=== PATIENT | male | born 1950 | race Two or more races ===

== ENCOUNTER 2023-08-31 14:22 | Outpatient (OUT) | payer MEDICARE, SELFPAY ==
[2023-08-31 15:18] LABS: Bilirubin Urine NEGATIVE (NEGATIVE); Blood Urine NEGATIVE (NEGATIVE); Clarity Urine CLEAR (CLEAR); Color Urine YELLOW (YELLOW); Glucose Urine UA NEGATIVE (NEGATIVE); Hematocrit 40.4 % (42.0-54.0); Hemoglobin 13.1 g/dL (14.0-18.0); Ketones Urine NEGATIVE (NEGATIVE); Leukocyte Esterase Urine NEGATIVE (NEGATIVE); Mean Corpuscular HGB Conc 32.4 g/dL (29.9-35.2); Mean Corpuscular Hemoglobin 26.5 pg (25.9-34.0); Mean Corpuscular Volume 81.6 fL (80.0-94.0); Mean Platelet Volume 10.5 fL (9.5-13.5); Nitrite Urine NEGATIVE (NEGATIVE); Platelet Count 157 10^3/uL (150-450); Protein Urine 100 mg/dL (NEG/TRACE); Red Blood Count 4.95 10^6/uL (4.70-6.10); Red Cell Distribution Width 15.3 % (11.0-15.0); Specific Gravity Urine 1.025 (1.005-1.025)
[2023-08-31 15:23] LABS: Creatinine Urine Random 155.87 mg/dL (20.00-300.00); Protein Creatinine Ratio Urine 0.59; Total Protein Urine Random 91.8 mg/dL (<=11.9)
[2023-08-31 15:36] LABS: Bacteria Urine NONE SEEN #/HPF (NONE SEEN); Cast Seen? NONE SEEN #/LPF (NONE SEEN); Crystals Seen? None Seen #/HPF (None Seen); Mucus Urine NONE SEEN (NONE SEEN); RBC Urine 0-2 #/HPF (0-2); Squamous Epithelial Cell Urine NONE SEEN #/LPF (NONE/RARE); WBC Urine NONE SEEN #/HPF (NONE SEEN)
[2023-08-31 16:43] LABS: Percent Iron Saturation 17.9 %
[2023-08-31 16:44] LABS: Albumin Level 3.5 g/dL (3.4-5.0); Anion Gap 12.3; BUN Creatinine Ratio 14.9; Calcium 8.7 mg/dL (8.5-10.1); Carbon Dioxide 25.8 mmol/L (21.0-32.0); Chloride 105 mmol/L (98-107); Estimated GFR (African America 45 (>=60); Estimated GFR (Non-African Ame 37 (>=60); Glucose 124 mg/dL (74-106); Phosphorus 3.5 mg/dL (2.6-4.7); Potassium 4.1 mmol/L (3.5-5.1); Sodium 139 mmol/L (136-145)
== END 2023-08-31 14:23 | disposition home or self-care (01) ==
PROVIDERS: PCP Family Medicine; Visit Provider Internal Medicine
DX: E11.22 Type 2 diabetes mellitus with diabetic chronic kidney disease (principal); N18.30 Chronic kidney disease, stage 3 unspecified; N28.1 Cyst of kidney, acquired; I12.9 Hypertensive chronic kidney disease with stage 1 through stage 4 chronic kidney disease, or unspecified chronic kidney disease; N20.0 Calculus of kidney; R80.9 Proteinuria, unspecified; D63.1 Anemia in chronic kidney disease
CPT/HCPCS: 36415; 80069; 81001; 82570; 82728; 83540; 83550; 83735; 84156; 85027

== ENCOUNTER 2023-09-21 15:40 | Outpatient (OUT) | payer MEDICARE, SELFPAY ==
[2023-09-21 16:31] LABS: Albumin Level 3.8 g/dL (3.4-5.0); Anion Gap 12.2; BUN Creatinine Ratio 15.5; Carbon Dioxide 29.1 mmol/L (21.0-32.0); Chloride 102 mmol/L (98-107); Estimated GFR (African America 54 (>=60); Estimated GFR (Non-African Ame 44 (>=60); Glucose 108 mg/dL (74-106); Phosphorus 3.9 mg/dL (2.6-4.7); Potassium 4.3 mmol/L (3.5-5.1); Sodium 139 mmol/L (136-145)
== END 2023-09-21 15:41 | disposition home or self-care (01) ==
LOC: LAB 15:43
PROVIDERS: PCP Family Medicine; Visit Provider Internal Medicine
DX: N20.0 Calculus of kidney (principal); N18.30 Chronic kidney disease, stage 3 unspecified; N28.1 Cyst of kidney, acquired; E11.22 Type 2 diabetes mellitus with diabetic chronic kidney disease; I12.9 Hypertensive chronic kidney disease with stage 1 through stage 4 chronic kidney disease, or unspecified chronic kidney disease; R80.9 Proteinuria, unspecified; D63.1 Anemia in chronic kidney disease
CPT/HCPCS: 36415; 80069

== ENCOUNTER 2023-10-07 16:02 | Outpatient (OUT) | payer MEDICARE, SELFPAY ==
[2023-10-07 16:27] LABS: Anion Gap 13.4; BUN Creatinine Ratio 19.8; Calcium 9.2 mg/dL (8.5-10.1); Carbon Dioxide 27.1 mmol/L (21.0-32.0); Chloride 105 mmol/L (98-107); Estimated GFR (African America 49 (>=60); Estimated GFR (Non-African Ame 41 (>=60); Glucose 150 mg/dL (74-106); Potassium 4.5 mmol/L (3.5-5.1); Sodium 141 mmol/L (136-145)
== END 2023-10-07 16:03 | disposition home or self-care (01) ==
LOC: LAB 16:02
PROVIDERS: PCP Family Medicine
DX: I13.11 Hypertensive heart and chronic kidney disease without heart failure, with stage 5 chronic kidney disease, or end stage renal disease (principal); N18.6 End stage renal disease; Z99.2 Dependence on renal dialysis; I50.43 Acute on chronic combined systolic (congestive) and diastolic (congestive) heart failure; E11.21 Type 2 diabetes mellitus with diabetic nephropathy
CPT/HCPCS: 36415; 80048

== ENCOUNTER 2023-12-14 13:21 | Outpatient (OUT) | payer MEDICARE, SELFPAY ==
--- OUTSIDE RECORDS SUMMARY | 2023-12-14 13:29 | XMS_ITS | CCD ---
Author Name Unknown Address [address] [place] [address] Organization [facility] Care Team Providers Care Clay Miner Name Role Phone NO REFERRING Unavailable Unavailable [employer] Unavailable Unavailable [facility]NO Unavailable Unavailable Phyllis Reyes Unavailable Mary Bryson Unavailable Jun Perez Unavailable Unavailable Unavailable Edie Morse Unavailable Jun Perez Unavailable Mayo, Tj Unavailable MAYO, TJ Attending Unavailable MAYO, TJ Consulting Unavailable MAYO TJ Admitting Unavailable Dr. Malika Patel Primary Care Robb Burgess, Dr. Jerez Attending Unavailable Anurag, Dr. Jerez Referring Unavailable Kun, Dr. Jun Patel Primary Care Unav ailable Anurag, Dr. Jerez Attending Unavailable Anurag, Dr. Jerez Referring Unavailable Kun, Dr. Jun Patel Primary Care UnaOdilia Bray Attending Unavailable Odilia Mackenzie Referring Unavailable Kun, Dr. Jun Patel Primary Care UnaMD BRITNEY Rose Attending Unavailable MD BRITNEY YU Referring Unavailable Odilia Mackenzie Attending Unavailable Kun, Dr. Jun Patel Primary Care Unaruthy ailronaldo Burgess, Dr. Jerez Attending Unavailable Kun, Dr. Jun Patel Primary Care Jacobo ailronaldo Burgess, Dr. Jerez Attending Unavailable Knu, Dr. Jun Patel Primary Care UnaRitchie Wilcox Admitting Unavail able CAROLEE GONZALEZ Primary Care Unavailable Ritchie Desai Attending Unavail able CAROLEE GONZALEZ Primary Care Unavailable Ritchie Desai Attending Unavail able Ritchie Desai Admitting Unavail able Rodney Victor Unavailable Mapus, Tondra Unavailable MD Jun Perez Primary Care Provider JESSA Parham Attending Provider MD Tj Solis Attending Provider Kun JARA, Jun Patel Primary Care Provider BRITNEY YU Attending Unavailable JUN PEREZ Primary Care Unavaila BRITNEY Joyner Attending Unavailable GIGI BRITNEY Referring Unavailable JUN PEREZ Primary Care Unavailstephen Perez MD, Jun Patel Primary Care Provider Unavailable MD Jun Perez Primary Care Provider JESSA Parham Attending Provider [phone] MD Tj Solis Attending Provider [phone] MD Rodney Victor Attending Provider MD Britney Yu Attending Provider Jun Perez Primary Care Unavailable Rodney Victor Admitting Unavailable Rodney Victor Attending Unavailable Mayo, Tj Attending Unavailable Jun Perez Primary Care Unavailable Mayo, Tj Admitting Unavailable Jun Perez Primary Care Unavailable Yu, Britney Admitting Unavailable Gigi Britney Attending Unavailable Yu Britney Admitting Unavailable Yu Britney Attending Unavailable Jun Perez Primary Care Unavailable Mayo, Tj Admitting Unavailable Mayo Tj Attending Unavailable Jun Perez Primary Care Unavailable Jun Perez Primary Care Unavailable Mapus, Tondra K Admitting Unavailable Mapus, Tondra K Attending Unavailable Jose Yu Unavailable Allergies Allergy Classification Reported Allergen(s) Allergy Type Date of Onset Reaction(s) Facility (20 sources) Contrast media Propensity to adverse reactions Unknown [facility] Other (8 sources) Contrast media Allergy to substance (finding) Shortness of breath -[facility] DO Work Phone: (6 sources) Angiotensin Converting Enzyme (Elisa) Inhibitors; Translations: [ELISA Inhibitors] Allergy to drug (finding) -[facility] DO Work Phone: (1 source) Contrast media; Translations: [Contrast Dye] Propensity to adverse reactions to drug (disorder) [facility] (5 sources) Gadolinium-Cont aining Contrast Medi; Translations: [Gadolinium-Con taining Contrast Medi] Allergy to substance 1 Anaphylaxis [facility] (9 sources) Iodinated Contrast Media; Translations: [IODINATED CONTRAST MEDIA] Allergy to substance 1 Shortness of breath [facility] Medications Current Medications Medication Drug Class(es) Dates Sig (Normalized) Sig (Original) 0.25 MG, 0.5 MG Dose 3 ML semaglutide 0.68 MG/ML Pen Injector [Ozempic] (3 sources) Start: 09-17-2023 inject 0.5 mg by subcutaneous injection every week Ozempic (0.25 or 0.5 MG/DOSE) 2 MG/3ML 0.5mg Subcutaneous once weekly Sep, Active amoxicillin 875 mg / clavulanate 125 mg oral tablet (7 sources) Penicillin-class Antibacterial Start: 11-19-2023 take 1 tablet by mouth every twelve hours Amoxicillin-Pot Clavulanate 875-125 MG 1 tablet Orally every 12 hrs for 10 day(s) Nov, Active Start: 12-02-2022 take 1 tablet by tanvi th every twelve hours Amoxicillin-Pot Clavulanate 875-125 MG 1 tablet Orally every 12 hrs for 10 day(s) Nov, Active aspirin 81 mg delayed release oral tablet (20 sources) Platelet Aggregation Inhibitor, Nonsteroidal Anti-inflammatory Drug take 1 tablet by mouth every twenty-four hours Aspirin 81 MG 1 tablet Orally Once a day Active take 1 tablet by tanvi th every twenty-four hours Aspirin 81 MG 1 tablet Orally Once a day Active atorvastatin 10 mg oral tablet (20 sources) HMG-CoA Reductase Inhibitor Start: 10-21-2023 take 5 mg by mouth at bedtime Atorvastatin Active 5 MG PO Bedtime October 21, 2023 12:00am take 0.5 tablet by mouth once da kimberlee Atorvastatin Calcium 10 MG 1/2 tab Orally Once a day Active take 1 tablet by mouth at bedtim e Atorvastatin Calcium 10 MG Oral Tablet TAKE 1 TABLET AT BEDTIME. Quantity: 90 Refills: 3 Ordered: 26-Dec-2022 Lashell Vazquez MD Active azithromycin 250 mg oral tablet (3 sources) Macrolide Antimicrobial Start: 02-17-2023 Azithromycin 250 MG as directed Orally 2 tabs po today, then 1 tab daily x 4 more days for 5 Feb, Active Start: 09-08-2022 Azithromycin 2 50 MG 2 tablet on the first day, then 1 tablet daily for 4 days Orally Once a day for 5 day(s) Aug, Active carvedilol 12.5 mg oral tablet (20 sources) alpha-Adrenergic Michelle, beta-Adrenergic Michelle Start: 10-21-2023 take 12.5 mg by mouth twice daily Carvedilol Active 12.5 MG PO Twice daily October 21, 2023 12:00am Start: 06-08-2023 take 1 tablet by tanvi th twice daily Carvedilol 6.25 MG Oral Tablet Take 1 tablet twice daily Quantity: 180 Refills: 3 Ordered: 08-Jun-2023 Britney Yu MD Start : 08-Jun-2023 Active 18.75 dose Start: 06-08-2023 take 1 tablet by tanvi th twice daily Carvedilol 12.5 MG Oral Tablet TAKE 1 TABLET TWICE DAILY. Quantity: 180 Refills: 3 Ordered: 08-Jun-2023 Britney Yu MD Start : 08-Jun-2023 Active take with 6.25mg bid take 1 tablet by tanvi th every eight hours Carvedilol 12.5 MG 1 tablet with food Orally THREE TIMES A DAY Active take 1 tablet by tanvi th every twelve hours Carvedilol 12.5 MG 1 tablet with food Orally Twice a day Active take 1 tablet by tanvi th every twelve hours Carvedilol 25 MG 1 tablet with food Orally Twice a day Active cholecalciferol 0.05 mg oral capsule (20 sources) Vitamin D Start: 10-21-2023 take 1 capsule by mouth once daily Cholecalciferol (Vitamin D3) (Vitamin D3) 50 mcg (2,000 unit) Capsule Active 4000 UNIT PO Daily October 21, 2023 12:00am take 1 capsule by mo uth every twelve hours Vitamin D3 50 MCG (1999 UT) 1 capsule Or ally BID Active take 1 tablet by mouth once lex y cholecalciferol (Vitamin D3) 50 MCG (2000 UT) tablet Take 1 tablet (50 mcg) by mouth once daily. 0 Active empagliflozin 25 mg oral tablet (13 sources) Sodium-Glucose Cotransporter 2 Inhibitor Start: 10-21-2023 take 1 tablet by mouth once daily Empagliflozin (Jardiance) 25 mg tablet Active 25 MG PO Daily October 21, 2023 12:00am Start: 09-17-2023 take 10 mg by mouth once daily Jardiance 25 MG 1/2 tablet Orally Once a day for 90 days stop jardiance 10mg dose Sep, Active Start: 09-07-2023 take 1 tablet by tanvi th every twenty-four hours Jardiance 10 MG 1 tablet Orally Once a day for 90 days Aug, Active take 0.5 tablet by m out once daily empagliflozin (Jardiance) 25 mg Take 0.5 tablets (12.5 mg) by mouth once daily. 0 Active erythromycin 0.005 mg/mg ophthalmic ointment (2 sources) Macrolide, Macrolide Antimicrobial Start: 05-25-2022 Erythromycin 5 MG/GM 1 application lower lid right eye three times a day for 7 days May, Active ferrous sulfate 325 mg oral tablet (9 sources) Start: 10-21-2023 Ferrous Sulfat e (Iron) 325 mg (65 mg iron) Tablet Active 325 MG PO Q48H October 21, 2023 12:00am take 1 tablet by mouth every oth er day Iron (Ferrous Sulfate) 325 (65 Fe) MG 1 tablet Orally Every other day Active take 1 tablet by mouth every oth er day ferrous sulfate 325 (65 Fe) MG EC tablet Take 65 mg by mouth every other day. Do not crush, chew, or split. 0 Active FreeStyle Carmelita 3 Sensor - (3 sources) Start: 09-17-2023 FreeStyle Libr e 3 Sensor - as directed SQ changed every 14 days for 14 days Sep, Active gabapentin 100 mg oral capsule (20 sources) Anti-epileptic Agent Start: 10-21-2023 take 100 mg by mouth three times daily Gabapentin Active 100 MG PO Three times daily October 21, 2023 12:00am take 1 capsule by mouth once sebastian ly Gabapentin 100 MG 1 capsule Orally 3x daily for 90 days Active take 1 capsule by mo [facility] three times daily gabapentin (Neurontin) 100 mg capsule Ta ke 1 capsule (100 mg) by mouth 3 times a day. 0 Active glipiZIDE 5 mg oral tablet (20 sources) Sulfonylurea take 1 tablet by tanvi twice daily 30 minutes before breakfast glipiZIDE 5 MG 1 tablet 30 minutes before breakfast Orally twice a day Active End: 09-28-2023 take 1 tablet by mouth once daily glipiZIDE XL (Glucotrol XL) 5 mg 24 hr tablet Take 1 tablet (5 mg) by mouth once daily. Do not crush, chew, or split. 0 09/28/2023 Discontinued (Therapy completed) take 1 tablet by tanvi once daily 30 minutes before breakfast glipiZIDE 5 MG 1 tablet 30 minutes before breakfast Orally Once a day Active Iron (4 sources) take 1 tablet by mouth every other day Iron (Ferrous Sulfate) 325 (65 Fe) MG 1 tablet Orally Every other day Active isosorbide mononitrate 20 mg oral tablet (3 sources) Nitrate Vasodilator take 1 tablet by mouth every twelve hours Isosorbide Mononitrate 20 MG 1 tablet Orally Twice a day Active lisinopril 2.5 mg oral tablet (10 sources) Angiotensin Converting Enzyme Inhibitor Start: take 1 tablet by mouth every twenty-four hours Lisinopril 2.5 MG 1 tablet Orally Once a day for 90 days Nov, Active Start: 04-16-2023 End: 09-28-2023 take 1 tablet by mouth every twenty-four hours Lisinopril 2.5 MG 1 tablet Orally Once a day for 90 days Apr, Active losartan potassium 25 mg oral tablet (6 sources) Angiotensin 2 Receptor Michelle Start: 09-01-2023 End: 09-28-2023 take 1 tablet by mouth every twenty-four hours Losartan Potassium 25 MG 1 tablet Orally Once a day for 90 days Aug, Active methylPREDNISolone 4 mg oral tablet (2 sources) Corticosteroid Start: 02-17-2023 methylPREDNISolone 4 MG as directed Orally for 6 days Feb, Active Multivitamin preparation (3 sources) Multivitamin Act fabien sacubitril 97 mg / valsartan 103 mg oral tablet (11 sources) Angiotensin 2 Receptor Michelle Start: 10-15-2023 End: 10-14-2024 take 0.5 tablet by mouth twice daily Sacubitril-Valsartan (Entresto) 97-103 mg tablet Active 0.5 TAB PO Twice daily October 21, 2023 12:00am Start: 09-28-2023 End: 10-15-2023 take 1 tablet by mouth twice daily sacubitriL-valsartan (Entresto) 24-26 mg tablet Indications: Hypertensive heart and CKD, ESRD on dialysis ([facility]) , CHF (congestive heart failure), NYHA class II, acute on chronic, combined ([facility]) , Primary hypertension Take 1 tablet by mouth 2 times a day. 56 tablet 0 09/29/2023 10/15/2023 Discontinued (Dose adjustment) Start: 06-08-2023 take 1 tablet by tanvi th twice daily Entresto 24-26 MG Oral Tablet TAKE 1 TABLET BY MOUTH TWICE A DAY Quantity: 180 Refills: 3 Ordered: 08-Jun-2023 Britney Yu MD Start : 08-Jun-2023 Active take 1 tablet by tanvi th every twelve hours Entresto 49-51 MG 1 tablet Orally Twice a day Not-Taking/PRN Saw Murphy 1000 MG (18 sources) take 1000 mg by mout h twice daily Saw Murphy 1000 MG as directed Orally BID Active Saw Murphy 450 MG (3 sources) take 450 mg by mouth three times daily Saw Murphy 450 MG as directed Orally three times a day Active Saw Murphy (3 sources) Start: 10-21-2023 take 450 mg by mouth three times daily at mealtime Saw Murphy Active 450 MG PO Three times daily October 21, 2023 12:00am give with food (meal/snack) SAW PALMETTO ORAL (2 sources) SAW PALMETTO ORA L Take by mouth once daily. 0 Active Vitamin C 1000 MG (4 sources) take 1 tablet by tanvi th once daily Vitamin C 1000 MG 1 tablet Orally Once a day Active Vitamin D3 50 MCG (1999 UT) (3 sources) take 1 tablet by tanvi th once daily Vitamin D3 50 MCG (2000 UT) 1 tablet Orally Once a day Active Completed/Discontinued Medications Medication Drug Class(es) Dates Sig (Normalized) Sig (Original) benzonatate 100 mg oral capsule (6 sources) Non-narcotic Antitussive Start: 10-31-2023 take 1 capsule by mouth three times daily as needed Tessalon Perles 100 MG 1 capsule as needed Orally Three times a day for 7 days Oct, Not-Taking/PRN Start: 02-17-2023 take 1 capsule by [facility] every eight hours Benzonatate 200 MG 1 capsule Orally Three times a day for 10 day(s) Feb, Active furosemide 20 mg oral tablet (20 sources) Loop Diuretic End: 09-28-2023 take 0.5 mg by mouth once daily furosemide (Lasix) 20 mg tablet Take 0.5 mg by mouth once daily. 0 09/28/2023 Discontinued (Therapy completed) Lasix 20 MG 1/2 tablet Orally Once a day PRN ONLY patient states he takes 30mg PRN Active hydrALAZINE hydrochloride 25 mg oral tablet (20 sources) Arteriolar Vasodilator Start: 09-28-2023 End: 09-27-2024 take 0.5 tablet by mouth three times daily hydrALAZINE (Apresoline) 25 mg tablet Indications: CHF (congestive heart failure), NYHA class II, acute on chronic, combined (CMS/HCC) , Primary hypertension Take 0.5 tablets (12.5 mg) by mouth 3 times a day. 45 tablet 09/28/2023 10/15/2023 Discontinued (Therapy completed) End: 09-28-2023 take 1.5 tablets by mouth three times daily hydrALAZINE HCl 25 MG 1.5 tabs Orally Three times a day Active hydrALAZINE HCl 25 MG 1 1/2 tablet with food Orally Three times a day Active take 1 tablet by tanvi th every eight hours hydrALAZINE HCl 10 mg 1 tablet Orally Three times a day Active predniSONE 20 mg oral tablet (5 sources) Start: 10-31-2023 take 1 tablet by mouth every twelve hours prednisone 20 MG 1 tablet Orally BID for 5 Oct, Not-Taking/PRN Start: 09-08-2022 take 1 tablet by tanvi th every twelve hours predniSONE 20 MG 1 tablet Orally 2 times a day for 5 day(s) Aug, Active Saw Murphy 1000 MG Oral Capsule (8 sources) Saw Murphy 100 0 MG Oral Capsule TAKE DIRECTED. Quantity: 0 Refills: 0 Ordered: 26-Dec-2022 DO Active triamcinolone acetonide 40 mg/ml injectable suspension (20 sources) Corticosteroid Start: 04-30-2022 Kenalog-40 15 Apr, 2022 20 mg Start: 04-30-2022 Kenalog-40 Apr, 40 mg Start: 07-29-2021 Kenalog -40 mg Jul, 40 mg Problems Active Problems Problem Classification Problem Date Documented Date Episodic/Chronic Administrative/social admission (1 source) Dietary counseling and surveillance Episodic Calculus of urinary tract (20 sources) Kidney stone; Translations: [Calculus of kidney] Onset: 3 Episodic Chronic kidney disease (20 sources) Chronic kidney disease stage 2; Translations: [Chronic kidney disease, stage 2 (mild)] Onset: 3 Chronic Chronic obstructive pulmonary disease and bronchiectasis (1 source) Bronchitis, not specified as acute or chronic Episodic Conduction disorders (5 sources) First degree atrioventricular block; Translations: [First degree atrioventricular block] Onset: 3 09-25-2023 Chronic Congestive heart failure; nonhypertensive (20 sources) Congestive heart failure stage C; Translations: [Congestive heart failure, unspecified] Onset: 3 Chronic Congestive heart failure; nonhypertensive (1 source) Congestive heart failure; nonhypertensive; Translations: [Acute on chronic combined systolic (congestive) and diastolic (congestive) heart failure] Onset: 3 Deficiency and other anemia (11 sources) Anemia of renal disease; Translations: [Anemia in chronic kidney disease] Chronic Deficiency and other anemia (1 source) Anemia in chronic kidney disease Chronic Deficiency and other anemia (8 sources) Iron deficiency anemia; Translations: [Iron deficiency anemia, unspecified] Episodic Deficiency and other anemia (1 source) Anemia, unspecified; Translations: [Anemia, unspecified] Onset: 3 Episodic Diabetes mellitus with complications (20 sources) Diabetic peripheral neuropathy; Translations: [Type 2 diabetes mellitus with diabetic polyneuropathy] Onset: 3 Chronic Diabetes mellitus without complication (15 sources) Type 2 diabetes mellitus without complication; Translations: [Diabetes mellitus without mention of complication, type II or unspecified type, not stated as uncontrolled] Onset: 3 09-25-2023 Chronic Diabetes mellitus without complication (1 source) Diabetes mellitus without complication; Translations: [Type 2 diabetes mellitus with diabetic chronic kidney disease] Onset: 3 Disorders of lipid metabolism (20 sources) Hyperlipidemia; Translations: [Other and unspecified hyperlipidemia] Onset: 3 Chronic Essential hypertension (20 sources) Essential hypertension; Translations: [Unspecified essential hypertension] Onset: 3 Chronic Genitourinary congenital anomalies (19 sources) Renal agenesis and dysgenesis; 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, unilateral] Onset: 3 Chronic Genitourinary symptoms and ill-defined conditions (4 sources) Proteinuria, unspecified; Translations: [PROTEINURIA UNSPECIFIED] Onset: 3 Episodic Hypertension with complications and secondary hypertension (20 sources) Chronic kidney disease due to hypertension; Translations: [Hypertensive chronic kidney disease with stage 1 through stage 4 chronic kidney disease, or unspecified chronic kidney disease] Onset: 3 Chronic Immunizations and screening for infectious disease (20 sources) Contact with and (suspected) exposure to other viral communicable diseases; Translations: [Contact with and (suspected) exposure to other viral communicable diseases] Episodic Osteoarthritis (20 sources) Osteoarthritis of right knee joint; Translations: [Unilateral primary osteoarthritis, right knee] Onset: 2 Resolved: 2 Chronic Other aftercare (5 sources) Treatment changed; Translations: [Long-term (current) use of other medications] Onset: 3 09-28-2023 Episodic Other aftercare (8 sources) Long-term current use of insulin; Translations: [paper inserter (current) use of insulin] Episodic Other aftercare (4 sources) Other underwriting service representative (current) drug therapy; Translations: [Other underwriting service representative (current) drug therapy] Onset: 3 Episodic Other bone disease and musculoskeletal deformities (1 source) Disorder of bone, unspecified; Translations: [Disorder of bone, unspecified] Onset: 3 Episodic Other diseases of kidney and ureters (2 sources) Cyst of kidney, acquired; Translations: [Cyst of kidney, acquired] Onset: 3 Episodic Other infections; including parasitic (5 sources) Personal history of other infectious and parasitic diseases; Translations: [Personal history of COVID-19] Onset: 3 09-25-2023 Episodic Other nervous system disorders (20 sources) Neuropathy of lower limb; Translations: [Unspecified mononeuropathy of left lower limb] Chronic Other nervous system disorders (20 sources) Chronic pain; Translations: [Other chronic pain] Chronic Other nervous system disorders (2 sources) Unspecified mononeuropathy of left lower limb Chronic Other nervous system disorders (1 source) Other chronic pain Chronic Other non-traumatic joint disorders (3 sources) Pain in right knee Onset: 2 Resolved: 2 Episodic Other nutritional; endocrine; and metabolic disorders (8 sources) Obesity; Translations: [Obesity, unspecified] Chronic Other nutritional; endocrine; and metabolic disorders (15 sources) Obese class II; Translations: [Body mass index (BMI) 38.0-38.9, adult] Chronic Other nutritional; endocrine; and metabolic disorders (1 source) Body mass index (BMI) 37.0-37.9, adult Chronic Other nutritional; endocrine; and metabolic disorders (3 sources) Morbid obesity; Translations: [Morbid (severe) obesity due to excess calories] Onset: 3 09-28-2023 Chronic Other nutritional; endocrine; and metabolic disorders (4 sources) Morbid (severe) obesity due to excess calories; Translations: [Morbid (severe) obesity due to excess calories (CMS/HCC)] Onset: 3 Chronic Other nutritional; endocrine; and metabolic disorders (3 sources) Overweight in adulthood with body mass index of 25 or more but less than 30; Translations: [Overweight] Episodic Other screening for suspected conditions (not mental disorders or infectious disease) (11 sources) Electrocardiogram abnormal; Translations: [Nonspecific abnormal electrocardiogram [ECG] [EKG]] Onset: 3 09-25-2023 Episodic Other skin disorders (1 source) Disorder of the skin and subcutaneous tissue, unspecified Episodic Other skin disorders (1 source) Change in skin lesion; Translations: [Anemia in chronic kidney disease] Onset: 3 Episodic Other upper respiratory infections (1 source) Acute maxillary sinusitis, unspecified Episodic Symone-; endo-; and myocarditis; cardiomyopathy (except that caused by tuberculosis or sexually transmitted disease) (18 sources) Cardiomyopathy; Translations: [Other primary cardiomyopathies] Onset: 3 09-25-2023 Chronic Personality disorders (6 sources) Personality disorder; Translations: [Personality disorder, unspecified] Onset: 3 09-28-2023 Chronic Residual codes; unclassified (10 sources) Obstructive sleep apnea of adult; Translations: [Obstructive sleep apnea (adult)(pediatric)] Onset: 3 09-25-2023 Chronic Residual codes; unclassified (4 sources) Transient alteration of awareness; Translations: [Transient alteration of awareness] 04-10-2021 Episodic Skin and subcutaneous tissue infections (1 source) Cellulitis of unspecified toe Episodic Spondylosis; intervertebral disc disorders; other back problems (20 sources) Chronic low back pain; Translations: [Lumbago with sciatica, left side] Episodic Unclassified (1 source) Unknown / UNK(Unknown) Onset: 3 Unclassified (1 source) CHRN KIDNEY DISEASE STG 3 UNSP; Translations: [CHRN KIDNEY DISEASE STG 3 UNSP] Onset: 3 Past or Other Problems Problem Classification Problem Date Documented Da te Episodic/Chronic Chronic kidney disease (13 sources) Chronic kidney disease; Translations: [Chronic kidney disease, stage III (moderate)] Onset: 09-17-2023 Inflammation; infection of eye (except that caused by tuberculosis or sexually transmitteddisease) (1 source) Hordeolum externum right lower eyelid Onset: 05-25-2022 Resolved: 05-25-2022 Episodic Other connective tissue disease (1 source) Pain in left hand Onset: 04-30-2022 Resolved: 04-30-2022 Episodic Unclassified (8 sources) Never smoked tobacco; Translations: [Never a smoker] Unclassified (1 source) Chronic cough R05.3 Unclassified (2 sources) Onset: 09-28-2023 Resolved: 10-15-2023 09-28-2023 Viral infection (1 source) COVID-19 Results Test Name Value Interpretation Reference Range Facility Basic Metabolic Panelon 12-2 Anion gap [Moles/Vol] 14.0 mmol/L Normal 6.0-15.0 [facility] Comment on above: Performed By: #### B MP #### [facility] [address] Calcium [Mass/Vol] 9.1 mg/dL Normal 8.6-10.3 [facility] Comment on above: Result Comment: PERF ORMED BY: [place] [address] PATHOLOGIST CHORE WORKER TRAN RANDOLPH M.D. Performed By: #### B MP #### [facility] [address] [place] [address] [place] Chloride [Moles/Vol] 104 mmol/L Normal 98-107 [facility] Comment on above: Performed By: #### B MP #### [address] CO2 [Moles/Vol] 22.5 mmol/L Normal 21.0-31.0 [facility] Comment on above: Performed By: #### B MP #### [place] [address] [place] Creatinine [Mass/Vol] 1.66 mg/dL High 0.70-1.30 [facility] Comment on above: Performed By: #### B MP #### [place] [address] [place] GFR/1.73 sq M.predicted MDRD (S/P/Bld) [Vol rate/Area] 43.529 mL/min/{1.73_m2} Normal [facility] Comment on above: Performed By: #### B MP #### [place] [address] [place] Glucose [Mass/Vol] 354 mg/dL High 70-100 [facility] Comment on above: Result Comment: [place] Glucose Reference Range is dependent on time and content of last meal. Glucose of more than 200 mg/dL in a nonstressed, ambulatory subject supports the diagnosis of Diabetes Mellitus. ADA recommended reference range Performed By: #### B MP #### [place] [address] [place] Potassium [Moles/Vol] 4.5 mmol/L Normal 3.5-5.1 [facility] Comment on above: Performed By: #### B MP #### [facility] [address] [place] [address] [place] Sodium [Moles/Vol] 136 mmol/L Normal 136-145 [facility] Comment on above: Performed By: #### B MP #### [facility] [address] [place] [address] [place] Urea nitrogen [Mass/Vol] 43 mg/dL High 7-25 [facility] Comment on above: Performed By: #### B MP #### [facility] [address] Calcium [Mass/volume] in Ser um or PlasmaOrdered By: Britney Yu on 11-05-2023 Calcium [Mass/Vol] 9.1 mg/dL 8.6-10.3 [facility] Carbon dioxide, total [Moles /volume] in Serum or PlasmaOrdered By: Britney Yu on 11-05-2023 CO2 [Moles/Vol] 22.5 mmol/L 21.0-31.0 [facility] Chloride [Moles/volume] in S niya or PlasmaOrdered By: Britney Yu on 11-05-2023 Chloride [Moles/Vol] 104 mmol/L 98-107 [facility] Creatinine [Mass/volume] in Serum or PlasmaOrdered By: Britney Yu on 11-05-2023 Creatinine [Mass/Vol] 1.66 mg/dL 0.70-1.30 [facility] Glucose [Mass/volume] in Ser um or PlasmaOrdered By: Britney Yu on 11-05-2023 Glucose [Mass/Vol] 354 mg/dL 70-100 [facility] Comment on above: ADA recommended refe rence rangeRandom Glucose Reference Range is dependent on time and content of last meal. Glucose of more than 200 mg/dL in a nonstressed, ambulatory subject supports the diagnosis of Diabetes Mellitus. No Panel InformationOrdered By: Britney Yu on 11-05-2023 Estimated GFR (CKD-EPI) 43.529 mL/Min [facility] Creatinine Clearance (Chem N/A [facility] Potassium [Moles/volume] in Serum or PlasmaOrdered By: Britney Yu on 11-05-2023 Potassium [Moles/Vol] 4.5 mmol/L 3.5-5.1 [facility] Serum or plasma anion gap de terminationOrdered By: Britney Yu on 11-05-2023 Anion gap [Moles/Vol] 14.0 mmol/L 6.0-15.0 [facility] Sodium [Moles/volume] in Ser um or PlasmaOrdered By: Britney Yu on 11-05-2023 Sodium [Moles/Vol] 136 mmol/L 136-145 [facility] Urea nitrogen [Mass/volume] in Serum or PlasmaOrdered By: Britney Yu on 11-05-2023 Urea nitrogen [Mass/Vol] 43 mg/dL 7-25 [facility] Basic Metabolic Panelon 10-16 Anion gap [Moles/Vol] 13.1 mmol/L Normal 6.0-15.0 [facility] Comment on above: Performed By: #### B MP #### [facility] [address] Calcium [Mass/Vol] 9.5 mg/dL Normal 8.6-10.3 [facility] Comment on above: Result Comment: PERF ORMED BY: [facility] [address] [facility] [place] [address] PATHOLOGIST CHORE WORKER TRAN RANDOLPH M.D. Performed By: #### B MP #### [facility] [address] [place] [address] [place] Chloride [Moles/Vol] 109 mmol/L High 98-107 [facility] Comment on above: Performed By: #### B MP #### [facility] [address] [place] [address] [place] CO2 [Moles/Vol] 25.0 mmol/L Normal 21.0-31.0 [facility] Comment on above: Performed By: #### B MP #### [facility] [address] [place] [address] [place] Creatinine [Mass/Vol] 1.59 mg/dL High 0.70-1.30 [facility] Comment on above: Performed By: #### B MP #### [facility] [address] [place] [address] [place] GFR/1.73 sq M.predicted MDRD (S/P/Bld) [Vol rate/Area] 45.838 mL/min/{1.73_m2} Normal [facility] Comment on above: Performed By: #### B MP #### [facility] [address] Glucose [Mass/Vol] 206 mg/dL High 70-100 [facility] Comment on above: Result Comment: [facility] Glucose Reference Range is dependent on time and content of last meal. Glucose of more than 200 mg/dL in a nonstressed, ambulatory subject supports the diagnosis of Diabetes Mellitus. ADA recommended reference range Performed By: #### B MP #### [address] Potassium [Moles/Vol] 5.1 mmol/L Normal 3.5-5.1 [facility] Comment on above: Performed By: #### B MP #### [place] [address] [place] Sodium [Moles/Vol] 142 mmol/L Normal 136-145 [facility] Comment on above: Performed By: #### B MP #### [facility] [address] [place] [address] [place] Urea nitrogen [Mass/Vol] 28 mg/dL High 7-25 [facility] Comment on above: Performed By: #### B MP #### [place] [address] [place] Calcium [Mass/volume] in Ser um or PlasmaOrdered By: Britney Yu on 10-26-2023 Calcium [Mass/Vol] 9.5 mg/dL 8.6-10.3 [facility] Carbon dioxide, total [Moles /volume] in Serum or PlasmaOrdered By: Britney Yu on 10-26-2023 CO2 [Moles/Vol] 25.0 mmol/L 21.0-31.0 [facility] Chloride [Moles/volume] in S niya or PlasmaOrdered By: Britney Yu on 10-26-2023 Chloride [Moles/Vol] 109 mmol/L 98-107 [facility] Creatinine [Mass/volume] in Serum or PlasmaOrdered By: Britney Yu on 10-26-2023 Creatinine [Mass/Vol] 1.59 mg/dL 0.70-1.30 [facility] Glucose [Mass/volume] in Ser um or PlasmaOrdered By: Britney Yu on 10-26-2023 Glucose [Mass/Vol] 206 mg/dL 70-100 [facility] Comment on above: ADA recommended refe rence rangeRandom Glucose Reference Range is dependent on time and content of last meal. Glucose of more than 200 mg/dL in a nonstressed, ambulatory subject supports the diagnosis of Diabetes Mellitus. No Panel InformationOrdered By: Britney uY on 10-26-2023 Estimated GFR (CKD-EPI) 45.838 mL/Min [facility] Creatinine Clearance (Chem N/A [facility] Potassium [Moles/volume] in Serum or PlasmaOrdered By: Britney Yu on 10-26-2023 Potassium [Moles/Vol] 5.1 mmol/L 3.5-5.1 [facility] Serum or plasma anion gap de terminationOrdered By: Britney Yu on 10-26-2023 Anion gap [Moles/Vol] 13.1 mmol/L 6.0-15.0 [facility] Sodium [Moles/volume] in Ser um or PlasmaOrdered By: Britney Yu on 10-26-2023 Sodium [Moles/Vol] 142 mmol/L 136-145 [facility] Urea nitrogen [Mass/volume] in Serum or PlasmaOrdered By: Britney Yu on 10-26-2023 Urea nitrogen [Mass/Vol] 28 mg/dL 7-25 [facility] Glucose Glucometer (BldC) [M ass/Vol]Ordered By: Rodney Victor on 10-21-2023 Glucose [Mass/Vol] 155 mg/dL [facility] Comment on above: Random Glucose Refer ence Range is dependent on time and content of last meal. Glucose of more than 200 mg/dL in a nonstressed, ambulatory subject supports the diagnosis of Diabetes Mellitus. Glucose Poct Glucometerson 1 12-22-2022 Glucose [Mass/Vol] 155 mg/dL Normal [facility] Comment on above: Result Comment: [place] om Glucose Reference Range is dependent on time and content of last meal. Glucose of more than 200 mg/dL in a nonstressed, ambulatory subject supports the diagnosis of Diabetes Mellitus. PERFORMED BY: [facility] [place] [address] PATHOLOGIST CHORE WORKER TRAN RANDOLPH M.D. Performed By: #### G ESTRELLITA #### Point of Care testing , Gerhard 10-21-2023 L Specimen: [id number] Received: 10/21/23 Status: DONTAE Rodney Num: [id number] Spec Type: Surgical Subm Dr: Rodney Victor MD Tissues: A Colon Biopsy (CECAL POLYP) B Colon Biopsy (TRANSV POLYP) Procedures: HE/4, Gross/Micro L4/2 Age/ Patient Sex Location Account Attending Physician Td Alcantara [address] [place] [address] [id number] Rodney Victor MD SPEC NUM: [id number] RECD: 10/21/23 STATUS: DONTAE RODNEY NUM: [id number] EBONI: 10/21/23- [facility] DR: Rodney Victor MD ENTERED: 10/21/23 [facility]: [place] TYPE: Surgical DEPT: S ORDERED: HE/4, Gross/Micro L4/2 ORDERED: HE/4, Gross/Micro L4/2 Pathological Diagnosis A. Cecum, polyp, biopsy: - Fragments of tubulovillous adenoma(s) B. Colon, transverse, polyp, biopsy: - Tubular adenoma Clinical Information None provided Gross Description A. Received in formalin labeled with the patient's name, date of and cecal polyp are two capone tissues averaging 0.3 cm. Entirely submitted in one cassette labeled A1. B. Received in formalin labeled with the patient's name, date of and transverse polyp is one acpone tissue measuring 0.3 cm. Entirely submitted in one cassette labeled B1. Specimen: [id number] Received: 10/21/23 Status: DONTAE Rodney Num: [id number] Spec Type: Surgical Subm Dr: Rodney Victor MD Tissues: A Colon Biopsy (CECAL POLYP) B Colon Biopsy (TRANSV POLYP) Procedures: BACILIO Gross/Micro L4/2 Patient: Td Alcantara [id number] (Continued) Specimen: [id number] Received: 10/21/23 (Continued) Signed (signature on file) Beto Torres MD 10/23/23 1144 Specimen: [id number] Received: 10/21/23 Status: DONTAE Rodney Num: [id number] Spec Type: Surgical Subm Dr: Rodney Victor MD Tissues: A Colon Biopsy (CECAL POLYP) B Colon Biopsy (TRANSV POLYP) Procedures: HE/4, Gross/Micro L4/2 Patient: Td Alcantara [id number] (Continued) Specimen: [id number] Received: 10/21/23 (Continued) Microscopic Description A. Two H E slides reviewed. The microscopic examination confirms the diagnosis. B. Two H E slides reviewed. The microscopic examination confirms the diagnosis. CPT Codes 60703x5 Specimen: [id number] Received: 10/21/23 Status: DONTAE Rodney Num: [id number] Spec Type: Surgical Subm Dr: Rodney Victor MD Tissues: A Colon Biopsy (CECAL POLYP) B Colon Biopsy (TRANSV POLYP) Procedures: HE/4, Gross/Micro L4/2 Patient: Td Alcantara [id number] (Continued) Signed (signature on file) Beto Torres MD 10/23/23 1144 Normal [facility] Glucose - FINGER STICKon Glucose [Mass/Vol] 215 mg/dL Definicare Other US renal BIon 09-17-2023 US renal BI [facility] [place] [address] Ultrasound Report Signed Patient: Td Alcantara MR#: [id number] : 1950 Acct:[id number] Age/Sex: 72 / M ADM Date: 09/17/23 Loc: Room: Type: [facility] Attending Dr: Tj Solis MD Ordering Provider: Tj Solis MD Date of Service: 09/17/23 US/US renal BI: Chronic kidney disease, stage III (moderate);Complex renal c Copies to: Tj Solis MD BILATERAL RENAL AND BLADDER ULTRASOUND CLINICAL HISTORY: Stage III chronic kidney disease COMPARISON: None Estimation of renal size is approximately 8.15 cm on the right and 13.69 cm on the left. No contour deforming mass, shadowing stone or hydronephrosis. Small cyst right kidney. The urinary bladder is partially distended with a volume of 139.99 ml. No shadowing stone or focal lesion. No significant postvoid residual. US/US renal BI IMPRESSION: No acute findings. Impression dictated by: Tobias Hahn Jr., D.O.09/17/2023 3:32 PM Dictation Location: [place] [address] Tech: Edie Lala Transcribed By: MOE 09/17/231531 Dictated By: Tobias Hahn Jr, DO 09/17/231531 Signed By: 09/17/231531 [facility] Tobacco Screening.on 023 Fall risk assessment a) No falls within the last year [facility] 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.21) Class 2 obesity with body mass index (BMI) of 36.0 to 36.9 in adult (278.00,V85.36) (E66.9,Z68.36) First degree atrioventricular block (426.11) (I44.0) Orders Abnormal ECG, Cardiomyopathy IO EKG Electrocardiogram- 12 Lead; Status:Complete; Done: 14May2023 Class 2 obesity with body mass index (BMI) of 36.0 to 36.9 in adult Healthy Weight Tips; Status:Complete - Retrospective Authorization; Done: 14May2023 Some eating tips that can help you lose weight.; Status:Complete - Retrospective Authorization; Done: 14May2023 SocHx: Never a smoker Tobacco Use Screening; Status:Complete; Done: [id number] Unlinked Stop: Aspirin EC 81 MG [facility] Patient Instructions Please bring all medicines, vitamins, and herbal supplements with you when you come to the office. Prescriptions will not be filled unless you are compliant with your follow up appointments or have a follow up appointment scheduled as per instruction of your physician. Refills should be requested at the time of your visit. Follow up in 4-6 weeks Patient is cleared for surgery from a cardiac standpoint. Chief Complaint POC. History of Present Illness Patient was originally seen by and then Odilia Goode at her recent office visit, and I have reviewed notes, and copied forward some of the information that was provided through Odilia's recent detailed assessment. 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 Most recent echo from April 2021 documents EF 25 to 30%. In regards to GDMT: No ELISA/ARNI/MRA/SGLT2i due to 2016 GOLD from obstructive kidney stone that required hemodialysis; right kidney atrophic. There is documentation that he did see nephrology in the past and recommended SGLT2i but patient declined. October 2022 creatinine 1.5. He is maintained on hydralazine but denies utilizing isosorbide in the past. Has as needed Lasix, usage is very rare. Patient is no longer receiving care from [facility]: Transferred care to [facility] with new patient assessment by Dr. Burgess December 2022. Patient presents to the office today primarily concerned with recent testing results. Discussed the different sensitivity/specific ity of ejection fraction evaluation between echocardiograms/MUGA /MPI. His MPI results are consistent with April 2021 echo findings. I do not have available documentation to me of EF in 2013. Nonetheless, he is requesting reevaluation with MUGA scan. In the past he has declined ICD implant, continues to do so today. Reports prior cardiac cath in 2012 with angiographically normal coronaries. Incomplete left bundle branch block, QRS 114. Patient is here for preoperative cardiac risk assessment prior to arthroscopic knee surgery to be done next week. Patient has a meniscus tear. He has been losing weight through heart healthy and lifestyle healthy choices, cutting portion size, being more active, lost 10 pounds already feels much better, and he is continuing the same process. He has no history of coronary artery disease in fact he is noted to have angiographically normal coronary arteries and nonischemic cardiomyopathy that is presumed to mild. Patient denies orthopnea PND shortness of breath with regular activities, such as mowing the grass, he remains very active. No clinical evidence of volume overload. EKG shows first-degree AV block and incomplete left bundle branch block normal QTc. Compared to EKG from January, there has been further prolongation of [place] interval and mild elongation of QRS duration. No history of palpitations lightheadedness presyncope syncope or falls. Describes quality of life currently as 9 out of 10. Obstructive sleep apnea, compliant with CPAP therapy Follows with nephrology. Has not used furosemide in over 6 months. Assessment: 1. Nonischemic cardiomyopathy with varying estimates of LV ejection fraction, most recent MUGA scan showed EF less than 30% 2. Patient is functional class I, and describes his quality of life is 9 out of 10. 3. He is currently optimized to proceed with surgery as planned, risk benefit is favorable, POC letter provided 4. He has hypertensive heart and kidney disease with stage IIIa kidney disease, he says he has single functioning kidney. 5. He was recently started on a tiny dose of lisinopril 2.5 mg daily. 6. He is taking carvedilol 3 times a day. 7. He has a personal history of COVID, and was extremely fatigued for several weeks after that. 8. He has varicose veins in his left lower extremity BMI is excessive but he is working on it and is losing weight. He is a diabe (more content not included)... Normal [facility] Tobacco Screening.on 023 Tobacco use status CPHS b) No M [place] [address] DO Work Phone: [facility] MUGA SCAN INJECTIONon [facility] MUGA SCAN INJECTION Patient Name: ADRIEL ALCANTARA STUDY: MUGA Performing facility: [facility], [address] [place] [address], [address], [place] [address] [facility] Provider: Odilia Mackenzie RN, LIME BOILER PCP: Dr. Sam Perez Supervising provider: Jemima Canas MD INDICATION: Cardiomyopathy HISTORY: Gender: M; Age: 72 y/o ; Height: 0 cm; Weight: 131.245559 kg. High Cholesterol; HTN; Denies smoking. COMPARISON: Previous nuclear testing completed be0862 MPI EF=31% at [facility]. Previous echo testing completed pa8204 EF= 25-30% at [facility]. ACCESSION NUMBER(S): [id number]; [id number] ORDERING CLINICIAN: ODILIA MACKENZIE TECHNIQUE: The patient received an IV injection of 3 ml of stannous pyrophosphate (PYP) using the in-vivo method of labeling red blood cells. After 15 minutes the patient received another IV injection of 26.1 mCi of Technetium 99m pertechnetate. Planar images of the left ventricle were obtained in the PORTUGUESE 45, Lt Lateral and anterior projections. FINDINGS: The right ventricle was normal. The left ventricle was mildly dilated in size. Regional wall motion was global. Global resting LVEF was abnormal- at 27%. IMPRESSION: Normal resting right ventricular function. Abnormalresting left ventricular function. Left ventricular ejection fraction is 27%. No previous study available for comparison Electronically signed by: JEMIMA CANAS MD [facility] No Panel Informationon 04-27 [facility] Work Phone: IMMUNOFIXATION (EMILY), URINEo n 04-15-2023 EMILY Interpretation:U Comment Normal [facility] Comment on above: Result Comment: No m onoclonality detected. Performed By: #### I MUNFXU #### [facility] [address] [place] [address] Dr. Santos Mchugh PROTEIN ELECTROPHERESIS URIN E RANDOMon 04-15-2023 Albumin, U 66.6 % Normal [facility] Comment on above: Performed By: #### U PTE #### [facility] [address] [place] [address] [address] Santos Mchugh Alpha-1 Globulin U 4.9 % Normal [facility] Comment on above: Performed By: #### U PTE #### [facility] [address] [place] [address] [address] Santos Mchugh Alpha-2 Glubulin U 7.5 % Normal [facility] Comment on above: Performed By: #### U PTE #### [facility] [address] [place] [address] Dr. Santos Mchugh Beta Globulin, U 12.9 % Normal [facility] Comment on above: Performed By: #### U PTE #### [facility] [address] [place] [address] Dr. Santos Mchugh Gamma Globulin U 8.1 % Normal [facility] Comment on above: Performed By: #### U PTE #### [facility] [address] [place] [address] Dr. Santos Mchugh M-Tavo, % Not Observed Normal Not Observed [facility] Comment on above: Performed By: #### U PTE #### [facility] [address] [place] [address] Dr. Santos Mchugh PDF . Normal [facility] Comment on above: Performed By: #### U PTE #### [facility] [address] [place] [address] Dr. Santos Mchugh Please note: Comment Normal [facility] Comment on above: Result Comment: Prot ein electrophoresis scan will follow via computer, mail, or formula technician delivery. Performed By: #### U PTE #### [facility] [address] [place] [address] Dr. Santos Mchugh Protein (U) [Mass/Vol] 64.1 mg/dL Normal Not Estab. [facility] Comment on above: Performed By: #### U PTE #### [facility] [address] [place] [address] Dr. Santos Mchugh FREE LIGHT CHAINS PLUS RATIO on 04-14-2023 Free Silver Gate Lt Chains,S 49.2 mg/L Critically high 3.3-19.4 [facility] Comment on above: Performed By: #### F REELIT #### [facility] [address] [place] [address] Dr. Santos Mchugh Free Lambda Lt Chains,S 19.3 mg/L Normal 5.7-26.3 [facility] Comment on above: Performed By: #### F REELIT #### [facility] [address] [place] [address] Dr. Santos Mchugh Silver Gate/Lambda Ratio, S 2.55 Critically high 0.26-1.65 [facility] Comment on above: Performed By: #### F REELIT #### [facility] [address] [place] [address] Dr. Santos Mchugh IMMUNOFIXATION (EMILY), SERUMo n 04-14-2023 IMMUNOFIXATION RESULT Comment Normal [facility] Comment on above: Result Comment: No m onoclonality detected. Performed By: #### U AMIC #### [facility] [address] [place] [address] Dr. Santos Mchugh Immunoglobulin A, Qn, Serum 186 mg/dL Normal 61-437 [facility] Comment on above: Performed By: #### U AMIC #### [facility] [address] [place] [address] Dr. Santos Mchugh Immunoglobulin G, Qn, Serum 854 mg/dL Normal 603-1613 [facility] Comment on above: Performed By: #### U AMIC #### [facility] [address] [place] [address] Dr. Santos Mchugh Immunoglobulin M, Qn, Serum 62 mg/dL Normal 15-143 [facility] Comment on above: Performed By: #### U AMIC #### [facility] [address] [place] [address] Dr. Santos Mchugh PROTEIN ELECTROPHERESISon Albumin [Mass/Vol] 3.5 g/dL Normal 2.9-4.4 [facility] Comment on above: Performed By: #### P RTELEC #### [facility] [address] [place] [address] Dr. Santos Mchugh Albumin/Globulin [Mass ratio] 1.1 {ratio} Normal 0.7-1.7 [facility] Comment on above: Performed By: #### P RTELEC #### [facility] [address] [place] [address] Dr. Santos Mchugh Jxlpr-7-Gxaexalc 0.2 g/dL Normal 0.0-0.4 [facility] Comment on above: Performed By: #### P RTELEC #### [facility] [address] [place] [address] [address] Santos Mchugh Nklkr-4-Nglmanpt 0.9 g/dL Normal 0.4-1.0 [facility] Comment on above: Performed By: #### P RTELEC #### [facility] [address] [place] [address] [address] Santos Mchugh Beta Globulin 1.2 g/dL Normal 0.7-1.3 [facility] Comment on above: Performed By: #### P RTELEC #### [facility] [address] [place] [address] [address] Santos Mchugh Gamma Globulin 0.8 g/dL Normal 0.4-1.8 [facility] Comment on above: Performed By: #### P RTELEC #### [facility] [address] [place] [address] Dr. Santos Mchugh Globulin (S) [Mass/Vol] 3.1 g/dL Normal 2.2-3.9 [facility] Comment on above: Performed By: #### P RTELEC #### [facility] [address] [place] [address] Dr. Santos Mchugh M-Tavo Comment: Normal Not Observed [facility] Comment on above: Result Comment: SPE shows asymmetrical beta. Performed By: #### P RTELEC #### [facility] [address] [place] [address] Dr. Santos Mchugh PDF . Normal [facility] Comment on above: Performed By: #### P RTELEC #### [facility] [address] [place] [address] [address] Santos Mchugh Please note: Comment Normal [facility] Comment on above: Result Comment: Prot ein electrophoresis scan will follow via computer, mail, or formula technician delivery. Performed By: #### P RTELEC #### [facility] [address] [place] [address] [address] Santos Mchugh Protein [Mass/Vol] 6.6 g/dL Normal 6.0-8.5 [facility] Comment on above: Performed By: #### P RTELEC #### [facility] [facility] [address] [address] [address] Santos Mchugh PTH INTACTon 04-11-2023 PTH, Intact 52 pg/mL Normal 15-65 [facility] Comment on above: Performed By: #### P THINT #### [facility] [address] [place] [address] Dr. Santos Mchugh HEMOGRAM AND PLATELon 2022 Hematocrit (Bld) [Volume fraction] 41.9 % Critically low 42.0-54.0 [facility] Comment on above: Performed By: #### U AMIC #### [facility] [address] [address] [address] Santos Mchugh Hemoglobin (Bld) [Mass/Vol] 13.3 g/dL Critically low 14.0-18.0 [facility] Comment on above: Performed By: #### U AMIC #### [facility] [address] [place] [address] Dr. Santos Mchugh MCH (RBC) [Entitic mass] 26.3 pg Normal 25.9-34.0 [facility] Comment on above: Performed By: #### U AMIC #### [facility] [address] [place] [address] Dr. Santos Mchugh MCHC (RBC) [Mass/Vol] 31.7 g/dL Normal 29.9-35.2 [facility] Comment on above: Performed By: #### U AMIC #### [facility] [address] [address] [address] Santos Mchugh MCV (RBC) [Entitic vol] 82.8 fL Normal 80.0-94.0 [facility] Comment on above: Performed By: #### U AMIC #### [facility] [address] [place] [address] Dr. Santos Mchugh PLT 167 103/ul Normal 150-450 [facility] Comment on above: Performed By: #### U AMIC #### [facility] [address] [place] [address] Dr. Santos Mchugh RBC 5.06 106/ul Normal 4.70-6.10 [facility] Comment on above: Performed By: #### U AMIC #### [facility] [address] [place], [place] [address] Dr. Santos Mchugh WBC 5.2 103/ul Normal 4.0-11.0 [facility] Comment on above: Performed By: #### U AMIC #### [facility] [address] [place], [place] [address] Dr. Santos Mchugh Office Visit (Cardiology)on 04-10-2023 Follow-up visit Diagnoses/Problems Assessed Cardiomyopathy (425.4) (I42.9) Primary hypertension (401.9) (I10) Hyperlipidemia (272.4) (E78.5) Type 2 diabetes mellitus without complication, without long-term current use of insulin (250.00) (E11.9) Obstructive sleep apnea, adult (327.23) (G47.33) Overweight with body mass index (BMI) of 25 to 25.9 in adult (278.02,V85.21) (E66.3,Z68.25) Orders Cardiomyopathy NM Muga (Gated Cardiac Blood Pool); Status:Active; Requested for:27Apr2023; Radiologist to Determine Optimal Study : Y What are the patient's signs and symptoms? : FC I Obstructive sleep apnea, adult Adult Sleep Medicine Referral Evaluation and Treatment Evaluate AND Treat: EVY has CPAP for 20 years. [facility] but [facility] system Needs EVY management Status: Hold For - Scheduling Requested for: 10Apr2023 Overweight with body mass index (BMI) of 25 to 25.9 in adult Healthy Weight Tips; Status:Complete; Done: 14Apr2023 Patient Instructions Please bring all medicines, vitamins, and herbal supplements with you when you come to the office. Prescriptions will not be filled unless you are compliant with your follow up appointments or have a follow up appointment scheduled as per instruction of your physician. Refills should be requested at the time of your visit. PLAN: Through informed decision making process incorporating patients unique circumstances, the following treatment plan will be initiated: 1. Prescription drug management of cardiovascular medication for efficacy, adherence to treatment, side effect assessment and polypharmacy. Current treatment clinically warranted and to continue without modifications. 2. MUGA scan 3. Return for follow-up; in the interim, contact the office if new symptoms arise. Dr. Yu 2 months 4. Referral to sleep clinic to f/u on CPAP usage Chief Complaint 'here to discuss testing results' ADRIEL ALCANTARA is being seen for cardiomyopathy. Patient presents to the office ambulatory with steady gait, is accompanied by . Last evaluated in clinic January 2023. At that time, he was requesting cardiac risk stratification prior to orthopedic procedure and outpatient perfusion study showed no evidence of ischemia with dilated LVEF 31%. I reviewed prior [facility] cardiology note dated August 25, 2022. 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 Most recent echo from April 2021 documents EF 25 to 30%. In regards to GDMT: No ELISA/ARNI/MRA/SGLT2i due to 2016 GOLD from obstructive kidney stone that required hemodialysis; right kidney atrophic. There is documentation that he did see nephrology in the past and recommended SGLT2i but patient declined. October 2022 creatinine 1.5. He is maintained on hydralazine but denies utilizing isosorbide in the past. Has as needed Lasix, usage is very rare. Patient is no longer receiving care from [facility]: Transferred care to [facility] with new patient assessment by Dr. Burgess December 2022. Patient presents to the office today primarily concerned with recent testing results. Discussed the different sensitivity/specific ity of ejection fraction evaluation between echocardiograms/MUGA /MPI. His MPI results are consistent with April 2021 echo findings. I do not have available documentation to me of EF in 2013. Nonetheless, he is requesting reevaluation with MUGA scan. In the past he has declined ICD implant, continues to do so today. Reports prior cardiac cath in 2012 with angiographically normal coronaries. Incomplete left bundle branch block, QRS 114. From a symptom standpoint he remains functional class I. He remains aerobically active riding a recumbent bike approximately 3 miles on a daily basis, he works out at the gym approximately 4 times a week. He denies any fatigability, no dyspnea on exertion. No evidence orthopnea or PND. He has had a CPAP machine for 20 years. He reports that usually calibrated yearly by the [facility], [facility] no [facility] and referred to the sleep clinic for management. Otherwise, he will be having an orthopedic knee surgery in the near future. Recent favorable perfusion study, EF 31% currently functional class I stage C without evidence of decompensation. At this time, there are no prohibitive cardiovascular risk to proceed. History of Present Illness The patient presents with non-ischemic heart failure with reduced ejection fraction. The patient's last LV ejection fraction was 31%. The patient is NYHA functional Class I. This is stage C heart failure. Symptoms: denies lower extremity edema, denies dyspnea on exertion, denies fatigue, denies exercise intolerance, denies orthopnea and denies paroxysmal nocturnal dyspnea. Associated symptoms include no chest pain. Home Monitoring: The patient checks his weight sporadically. Medications: the patient is adherent with his medication regimen. He denies medication side eff (more content not included)... Normal [facility] RENAL FUNCTION PANELon 04-10 Albumin [Mass/Vol] 3.6 g/dL Normal 3.4-5.0 [facility] Comment on above: Performed By: #### U KAJAL, RENAL #### [facility] [address] [address] [address] Santos Mchugh Calcium [Mass/Vol] 8.9 mg/dL Normal 8.5-10.1 [facility] Comment on above: Performed By: #### U KAJAL, RENAL #### [facility] [address] [address] [address] Santos Mchugh Chloride [Moles/Vol] 103 mmol/L Normal 98-107 [facility] Comment on above: Performed By: #### U KAJAL, RENAL #### [facility] [address] [address] [address] Santos Mchugh CO2 [Moles/Vol] 28.4 mmol/L Normal 21.0-32.0 [facility] Comment on above: Performed By: #### U KAJAL, RENAL #### [facility] [address] [address] [address] Santos Mchugh Creatinine [Mass/Vol] 1.48 mg/dL Critically high 0.70-1.30 [facility] Comment on above: Performed By: #### U KAJAL, RENAL #### [facility] [address] [address] [address] Santos Mchugh EGFR-AF SURINAMESE 57 mL/min/1.73m2 Critically low >=60 [facility] Comment on above: Performed By: #### U KAJAL, RENAL #### [facility] [address] [address] [address] Santos Mchugh EGFR-NON AF SURINAMESE 47 mL/min/1.73m2 Critically low >=60 [facility] Comment on above: Performed By: #### U KAJAL, RENAL #### [facility] [address] [address] [address] Santos Mchugh Glucose [Mass/Vol] 122 mg/dL Critically high 74-106 [facility] Comment on above: Performed By: #### U KAJAL, RENAL #### [facility] [address] [address] [address] Santos Mchugh Phosphate [Mass/Vol] 3.9 mg/dL Normal 2.6-4.7 [facility] Comment on above: Performed By: #### U KAJAL, RENAL #### [facility] [address] [place] [address] Dr. Santos Mchugh Potassium [Moles/Vol] 4.5 mmol/L Normal 3.5-5.1 [facility] Comment on above: Performed By: #### U KAJAL, RENAL #### [facility] [address] [place] [address] Dr. Santos Mchugh Sodium [Moles/Vol] 140 mmol/L Normal 136-145 [facility] Comment on above: Performed By: #### U KAJAL, RENAL #### [facility] [address] [place] [address] Dr. Santos Mchugh Urea nitrogen [Mass/Vol] 23.0 mg/dL Critically high 7.0-18.0 [facility] Comment on above: Performed By: #### U KAJAL, RENAL #### [facility] [address] [place] [address] Dr. Santos Mchugh Tobacco Screening.on 023 Fall risk assessment a) No falls within the last year [facility] [address] DO Work Phone: Tobacco use status CP b) No [facility] [employer] DO Work Phone: UA RANDOM W/MICROSCOPICon BACTERIA NONE SEEN Normal NONE SEEN [facility] Comment on above: Performed By: #### U AMIC #### [facility] [address] [address] [address] Santos Mchugh Bilirubin Ql (U) Negative Normal NEGATIVE [facility] Comment on above: Performed By: #### U AMIC #### [facility] [address] [address] [address] Santos Mchugh CAST NONE SEEN Normal NONE SEEN [facility] Comment on above: Performed By: #### U AMIC #### [facility] [address] [address] [address] Santos Mchugh Clarity (U) CLEAR Normal CLEAR [facility] Comment on above: Performed By: #### U AMIC #### [facility] [address] [place] [address] Dr. Santos Mchugh Color (U) LT. YELLOW Normal YELLOW [facility] Comment on above: Performed By: #### U AMIC #### [facility] [address] [place] [address] Dr. Santos Mchugh Crystals LM Nom (Urine sed) NONE SEEN Normal NONE SEEN [facility] Comment on above: Performed By: #### U AMIC #### [facility] [address] [place] [address] Dr. Santos Mchugh Epithelial cells LM Ql (Urine sed) NONE SEEN Normal NONE SEEN /RARE [facility] Comment on above: Performed By: #### U AMIC #### [facility] [address] [place] [address] Dr. Santos Mchugh Glucose Ql (U) Negative Normal NEGATIVE [facility] Comment on above: Performed By: #### U AMIC #### [facility] [address] [place] [address] Dr. Santos Mchugh Hemoglobin Ql (U) Negative Normal NEGATIVE [facility] Comment on above: Performed By: #### U AMIC #### [facility] [address] [place] [address] Dr. Santos Mchugh Ketones Ql (U) Negative Normal NEGATIVE [facility] Comment on above: Performed By: #### U AMIC #### [facility] [address] [address] [address] Santos Mchugh LEUKOCYTES Negative Normal NEGATIVE [facility] Comment on above: Performed By: #### U AMIC #### [facility] [address] [place] [address] Dr. Santos Mchugh MUCOUS NONE SEEN Normal NONE SEEN [facility] Comment on above: Performed By: #### U AMIC #### [facility] [address] [address] [address] Santos Mchugh Nitrite Ql (U) Negative Normal NEGATIVE [facility] Comment on above: Performed By: #### U AMIC #### [facility] [address] [place] [address] Dr. Santos Mchugh pH (U) 6.0 [pH] Normal 5-9 [facility] Comment on above: Performed By: #### U AMIC #### [facility] [address] [place] [address] Dr. Santos Mchugh RBC 0-2 Normal 0-2 [facility] Comment on above: Performed By: #### U AMIC #### [facility] [address] [place] [address] Dr. Santos Mchugh SPEC GRAVITY 1.015 Normal 1.005-<=1.02 5 [facility] Comment on above: Performed By: #### U AMIC #### [facility] [address] [address] [address] Santos Mchugh UA PROTEIN 100 mg/dl Abnormal NEGATIVE/ TRACE [facility] Comment on above: Performed By: #### U AMIC #### [facility] [address] [address] [address] Santos Mchugh Urobilinogen Qn (U) 0.2 {Dolores'U}/dL Normal 0.2 - 1. 0 [facility] Comment on above: Performed By: #### U AMIC #### [facility] [address] [place] [address] Dr. Santos Mchugh WBC NONE SEEN Normal NONE SEEN [facility] Comment on above: Performed By: #### U AMIC #### [facility] [address] [place] [address] Dr. Santos Mchugh URIC ACID SERUMon 04-10-2023 Urate [Mass/Vol] 7.0 mg/dL Normal 3.5-7.2 [facility] Comment on above: Performed By: #### U KAJAL, RENAL #### [facility] [address] [place] [address] Dr. Santos Mchugh URINE T PROTEIN CREAT RATIOo n 04-10-2023 Protein (U) [Mass/Vol] 68.1 mg/dL Critically high <=12.0 [facility] Comment on above: Performed By: #### U RTPCR #### [facility] [address] [place] [address] Dr. Santos Mchugh UR PROT CREAT RAT 0.97 Normal [facility] Comment on above: Performed By: #### U RTPCR #### [facility] [address] [place] [address] Dr. Santos Mchugh URINE CREAT 70.53 mg/dL Normal 20.00-300.00 [facility] Comment on above: Performed By: #### U RTPCR #### [facility] [address] [place] [address] Dr. Santos Mchugh VITAMIN D 25 OHon 04-10-2023 VIT D 25-OH 41.0 ng/mL Normal [facility] Comment on above: Performed By: #### V ITAD #### [facility] [address] [place] [address] Dr. Santos Mchugh VIT D RANGES SEE BELOW Normal [facility] Comment on above: Result Comment: <20 ng/mL Vit D deficient 20 - <30 ng/mL Vit D insufficient 30 - 100 ng/mL Vit D sufficient >100 ng/mL Potential Toxicity Performed By: #### V ITAD #### [facility] [address] [place] [address] Dr. Santos Mchugh [facility] CARDIAC STRESS/REST INJE CTIONon 03-31-2023 [facility] CARDIAC STRESS/REST INJECTION Patient Name: ADRIEL ALCANTARA STUDY: MYOCARDIAL PERFUSION STRESS TEST WITH LEXISCAN Performing facility: [facility], [address], [address], [place] [address] [facility] Provider: Lashell Burgess MD PCP: Dr. Sma Perez Supervising provider: Jemima Canas MD INDICATION: Abnormal EKG; Pre-operative risk assessment for Right knee scheduled at [facility] on TBD. HISTORY: Gender: M; Age: 72 y/o ; Height: 0 cm; Weight: 131.980640 kg. Abnormal EKG; High Cholesterol; Diabetes; HTN; Denies smoking. COMPARISON: No comparison. ACCESSION NUMBER(S): [id number]; [id number]; [id number] ORDERING CLINICIAN: LASHELL BURGESS TECHNIQUE: ONE DAY protocol. Stress injection: Date:03-31-23, 34.8 mCi of Myoview IV 20 seconds after rapid injection of Lexiscan. Rest injection: Date: 04-01-23, 34.0 mCi of Myoview IV at rest. The patient had a rapid injection of 0.4 mg of Lexiscan IV over 10 seconds. Imaging was performed by gated tomographic technique. Reason for Lexiscan: hip/knee pain STRESS TEST DATA: Resting heart rate was 63 BPM. Resting blood pressure was 128/88 mmHg. Peak blood pressure was 126/76 mmHg. Peak heart rate was 79 BPM. TEST TERMINATED DUE TO: Protocol completed FINDINGS: STRESS TEST RESULTS: Resting electrocardiogram revealed normal sinus rhythm with incomplete left bundle branch block and nonspecific ST-T changes. There were no significant ischemic ECG changes or dysrhythmias. The patient did not have chest pains/symptoms during procedure. There was a normal recovery phase. IMAGING RESULTS: Image quality was good. Rest and stress tomographic images were reviewed and revealed normal perfusion without evidence of ischemia, myocardial infarction, or left ventricular dilatation with stress. Overall left ventricular systolic function appeared dilated and severely hypokinetic. Ejection fraction was 31%. TID is 0.96 and is normal. There was evidence of inferior attenuation artifact. IMPRESSION: Borderline abnormal Lexiscan Myoview cardiac perfusion stress test. No evidence of ischemia or myocardial infarction by perfusion imaging. Abnormal left ventricular systolic function, ejection fraction 31%. With dilated left ventricle No previous study available for comparison. Electronically signed by: JEMIMA CANAS MD Normal [facility] No Panel Informationon 03-31 FINAL REPORT Interpreted by: JEMIMA CANAS MD 04/01/23 16:28 Patient Name: ADRIEL ALCANTARA STUDY: MYOCARDIAL PERFUSION STRESS TEST WITH LEXISCAN Performing facility: [facility], [address] [place] [address] Normal -[facility] [address] DO Work Phone: US renal BIon 02-17-2023 US renal BI [facility] Main [place] [address] [place] [id number] Ultrasound Report Signed Patient: Td Alcantara MR#: [id number] : 1950 Acct:[id number] Age/Sex: 72 / M ADM Date: 02/17/23 Loc: Room: Type: [facility] Attending Dr: Tj Solis MD Ordering Provider: Tj Solis MD Date of Service: 02/17/23 US/US renal BI: Chronic kidney disease, stage III (moderate);Solitary kidney Copies to: Tj Solis MD BILATERAL RENAL AND BLADDER ULTRASOUND CLINICAL HISTORY: Stage III chronic kidney disease. COMPARISON: None Estimation of renal size is approximately 10.33 cm on the right and 13.23 cm on the left. No contour deforming mass or hydronephrosis. Small cyst left kidney with possible calcification. Echogenic kidneys suggesting medical renal disease. The urinary bladder is partially distended with a volume of 152.58 ml. No shadowing stone or focal lesion. Significant post void residual of 90 mL. US/US renal BI IMPRESSION: NO ACUTE FINDINGS. ECHOGENIC KIDNEYS SUGGESTIVE OF MEDICAL RENAL DISEASE. SMALL CYST WITH POSSIBLE CALCIFICATION. ULTRASOUND FOLLOW-UP IS RECOMMENDED IN 6 MONTHS. SIGNIFICANT POST VOID RESIDUAL OF THE URINARY BLADDER. Impression dictated by: Tobias Hahn Jr., D.O.02/17/2023 3:27 PM Dictation Location: [place] [address] Tech: Concha Haines Transcribed By: MOE 02/17/23 1527 Dictated By: Tobias Hahn Jr, DO 02/17/23 1524 Signed By: 02/17/23 1527 [facility] Office Visit (Cardiology)on 01-23-2023 Follow-up visit Diagnoses/Problems Assessed Abnormal ECG (794.31) (R94.31) Pre-operative cardiovascular examination (V72.81) (Z01.810) Class 2 obesity with body mass index (BMI) of 37.0 to 37.9 in adult (278.00,V85.37) (E66.9,Z68.37) Never a smoker Orders Abnormal ECG, Pre-operative cardiovascular examination NM Cardiac Stress/Rest Nuclear Med Order; Status:Hold For - Scheduling; Requested for:23Jan2023; Radiologist to Determine Optimal Study : Y What are the patient's signs and symptoms? : abn ecg/ POC Class 2 obesity with body mass index (BMI) of 37.0 to 37.9 in adult Healthy Weight Tips; Status:Complete; Done: 23Jan2023 Some eating tips that can help you lose weight.; Status:Complete; Done: 23Jan2023 Pre-operative cardiovascular examination IO EKG Electrocardiogram- 12 Lead; Status:Complete; Done: 23Jan2023 SocHx: Never a smoker Tobacco Use Screening; Status:Complete; Done: 23Jan2023 Patient Instructions Please bring all medicines, vitamins, and herbal supplements with you when you come to the office. Prescriptions will not be filled unless you are compliant with your follow up appointments or have a follow up appointment scheduled as per instruction of your physician. Refills should be requested at the time of your visit. POC pending stress test Follow up in 6 months with Odilia Terry NP Chief Complaint ADRIEL ALCANTARA is being seen for POC for [place] Rt Knee. History of Present Illness 72 yo male here for pre-operative cardiac clearance prior to TKA of R knee. Patient has no complaints today including chest pain, VALENZUELA, presyncope/syncope. He is unable to complete > 4 METS due to knee pain. His ECG with incomplete LBBB. Has not had an ischemic evaluation in a few years. Initial visit: [facility]. Has a reported hx of CHF 10 years ago but states his EF has since recovered. He endorses weekly exercise (5x per week) with no issues. State's he very active. No chest pain, palpitations, presyncope/syncope, LE edema, PND, orthopnea. Checks his BP daily and states its well-controlled on his current medications. No complaints today. Surgical History Problems History of Cataract surgery History of Cholecystectomy Denied: History of Colonoscopy History of Ganglion cyst excision Current Meds Medication NameInstruction Aspirin EC 81 MG Oral Tablet Delayed ReleaseTAKE 1 TABLET DAILY. Atorvastatin Calcium 10 MG Oral TabletTAKE 1 TABLET AT BEDTIME. Carvedilol 12.5 MG Oral TabletTAKE 1 TABLET 3 times daily Furosemide 20 MG Oral TabletTAKE 0.5 TABLET Daily PRN Gabapentin 100 MG Oral CapsuleTAKE 1 CAPSULE 3 TIMES DAILY. glipiZIDE 5 MG Oral TabletTAKE 1 TABLET TWICE DAILY. hydrALAZINE HCl - 25 MG Oral TabletTAKE 1.5 TABLET 3 times daily Saw Murphy 1000 MG Oral CapsuleTAKE DIRECTED. Vitamin D3 50 MCG (1999) Oral CapsuleTake 1 capsule twice daily Patient did not bring medication list or bottles. Updated verbally with patient Allergies Medication No Known Drug Allergies Recorded By: Chelsie Dukes; 12/24/2022 3:47:13 PM NonMedication IV Contrast Dye Recorded By: Chelsie Dukes; 12/24/2022 3:46:58 PM Social History Problems Daily caffeine consumption, 1 serving a day Never a smoker No alcohol use No illicit drug use Review of Systems Constitutional: not feeling tired. Cardiovascular: no intermittent leg claudication and as noted in HPI. Respiratory: no cough and no shortness of breath. Gastrointestinal: no change in bowel habits and no blood in stools. Integumentary: no skin rashes. Neurological: no seizures and no frequent falls. All other systems have been reviewed and are negative for complaint. Vitals Vital Signs Recorded: 23Jan2023 09:16AM Heart Rate63, Apical [id number], LUE, Sitting Mxshsvrbv32, LUE, Sitting Height6 ft 2 in Zezdnr456 lb BMI Vmuwjizdkk74.75 kg/m2 BSA Calculated2.56 Tobacco Useb) No PHQ-2 #1. Over the last 2 weeks have you felt down, depressed or hopeless? (If yes, answer PHQ-9 below)No PHQ-2 #2. Over the last 2 weeks have you felt little interest or pleasure in doing things? (If yes, answer PHQ-9 below)No Falls Screening (Age 18+)a) No falls within the last year EKG done in office today Physical Exam Constitutional: alert and in no acute distress. Neck: neck is supple, symmetric, trachea midline, no masses . Pulmonary: no increased work of breathing or signs of respiratory distress and lungs clear to auscultation. Cardiovascular: JVP was normal, no thrills and regular rhythm, normal S1 and S2, no murmurs . Skin: skin warm and dry, normal skin turgor . Psychiatric judgment and insight is normal and oriented to person, place and time . Impressions 1. Reported hx of CHF - [facility] - Will get NST for pre-operative clearance due to inability to complete > 4 METS and abnormal ECG 2. HTN - Well-controlled - Continue current therapy 3. DMII - non-insulin dependent Will c (more content not included)... Normal [facility] Tobacco Screening.on Adult depression screening assessment No [facility] [employer] DO Work Phone: Fall risk assessment a) No falls within the last year [facility] [employer] DO Work Phone: Tobacco use status CPHS b) No [facility] [employer] DO Work Phone: MRI Knee w/o Righton 023 MRI Knee w/o Right History: Knee pain. Internal derangement. Technique: Multiplanar multisequence MRI of the knee was performed without contrast. Comparison: Radiographs of the knee 12/16/2022 Findings: Quadriceps and patellar tendons are intact. Small joint effusion. Anterior and posterior cruciate ligaments are intact. The medial collateral ligament, lateral collateral ligament, and popliteus are intact. Horizontal tear of the body through posterior horn of the lateral meniscus. Horizontal tear of the posterior horn of the medial meniscus. No well-defined or measurable cartilage defect identified. Cartilage softening and fibrillation of the weightbearing medial femoral condyle and weightbearing lateral femoral condyle. Popliteal fossa structures are intact. Thin septated Galo's cyst measures approximately 5 cm in craniocaudal length. IMPRESSION: Horizontal tear of the body through posterior horn of the lateral meniscus. Horizontal tear of the posterior horn of the medial meniscus. Report reported and signed by Abhinav Muller on 01/07/2023 1009 Normal [facility] Office Visit (Cardiology)on 12-26-2022 Follow-up visit Diagnoses/Problems Assessed Cardiomyopathy (425.4) (I42.9) CHF (NYHA class II, ACC/AHA stage C) (428.0) (I50.9) Hyperlipidemia (272.4) (E78.5) Primary hypertension (401.9) (I10) Class 2 obesity with body mass index (BMI) of 37.0 to 37.9 in adult (278.00,V85.37) (E66.9,Z68.37) Obstructive sleep apnea, adult (327.23) (G47.33) Never a smoker Orders Cardiomyopathy IO EKG Electrocardiogram- 12 Lead; Status:Complete; Done: [id number] Cardiomyopathy, Primary hypertension Renew: Carvedilol 12.5 MG Oral Tablet; TAKE 1 TABLET 3 times daily Renew: hydrALAZINE HCl - 25 MG Oral Tablet; TAKE 1.5 TABLET 3 times daily Hyperlipidemia Renew: Atorvastatin Calcium 10 MG Oral Tablet; TAKE 1 TABLET AT BEDTIME Obstructive sleep apnea, adult Adult Sleep Medicine Referral Evaluation and Treatment Evaluate AND Treat Status: Hold For - Scheduling,Retrospec tive Authorization Requested for: [id number] SocHx: Never a smoker Tobacco Use Screening; Status:Complete; Done: [id number] Patient Instructions Please bring all medicines, vitamins, and herbal supplements with you when you come to the office. Prescriptions will not be filled unless you are compliant with your follow up appointments or have a follow up appointment scheduled as per instruction of your physician. Refills should be requested at the time of your visit. Follow up in 6 months Chief Complaint ADRIEL ALCANTARA is being seen for a consultation for CHF- former [facility]. History of Present Illness 72 yo male here to establish care. Has a reported hx of CHF 10 years ago but states his EF has since recovered. He endorses weekly exercise (5x per week) with no issues. State's he very active. No chest pain, palpitations, presyncope/syncope, LE edema, PND, orthopnea. Checks his BP daily and states its well-controlled on his current medications. No complaints today. Surgical History Problems History of Cataract surgery History of Cholecystectomy Denied: History of Colonoscopy History of Ganglion cyst excision Current Meds Medication NameInstruction Aspirin EC 81 MG Oral Tablet Delayed ReleaseTAKE 1 TABLET DAILY. Atorvastatin Calcium 10 MG Oral TabletTAKE 1 TABLET AT BEDTIME. Carvedilol 12.5 MG Oral TabletTAKE 1 TABLET 3 times daily Furosemide 20 MG Oral TabletTAKE 0.5 TABLET Daily PRN Gabapentin 100 MG Oral CapsuleTAKE 1 CAPSULE 3 TIMES DAILY. glipiZIDE 5 MG Oral TabletTAKE 1 TABLET TWICE DAILY. hydrALAZINE HCl - 25 MG Oral TabletTAKE 1.5 TABLET 3 times daily Saw Murphy 1000 MG Oral CapsuleTAKE DIRECTED. Vitamin D3 50 MCG (1999 UT) Oral CapsuleTake 1 capsule twice daily Allergies Medication No Known Drug Allergies Recorded By: Chelsie Dukes; 12/24/2022 3:47:13 PM NonMedication IV Contrast Dye Recorded By: Chelsie Dukes; 12/24/2022 3:46:58 PM Family History Father Family history of cardiac disorder (V17.49) (Z82.49) Family history of diabetes mellitus (V18.0) (Z83.3) Social History Problems Daily caffeine consumption, 1 serving a day Never a smoker No alcohol use No illicit drug use Review of Systems Constitutional: not feeling tired. Cardiovascular: no intermittent leg claudication and as noted in HPI. Respiratory: no cough and no shortness of breath. Gastrointestinal: no change in bowel habits and no blood in stools. Integumentary: no skin rashes. Neurological: no seizures and no frequent falls. All other systems have been reviewed and are negative for complaint. Vitals Vital Signs Recorded: [id number] 10:52AMRecorded: [id number] 10:51AM Ccroljta589, LUE, Qijibtv537, RUE, Sitting Hjmdasnsv04, LUE, Vlluxrv43, RUE, Sitting Heart Rate61, Apical Height6 ft 2 in Mjfoab549 lb BMI Ijpjtadepj84.75 kg/m2 BSA Calculated2.56 Tobacco Useb) No PHQ-2 #1. Over the last 2 weeks have you felt down, depressed or hopeless? (If yes, answer PHQ-9 below)No PHQ-2 #2. Over the last 2 weeks have you felt little interest or pleasure in doing things? (If yes, answer PHQ-9 below)No Falls Screening (Age 18+)a) No falls within the last year EKG done in office today. Home BP cuff RUE 150/78 Physical Exam Constitutional: alert and in no acute distress. Neck: neck is supple, symmetric, trachea midline, no masses and no thyromegaly . Pulmonary: no increased work of breathing or signs of respiratory distress and lungs clear to auscultation. Cardiovascular: carotid pulses 2+ bilaterally with no bruit , JVP was normal, no thrills , regular rhythm, normal S1 and S2, no murmurs , pedal pulses 2+ bilaterally and no edema . Abdomen: abdomen non-tender, no masses and no hepatomegaly . Skin: skin warm and dry, normal skin turgor . Psychiatric judgment and insight is normal and oriented to person, place and time . Impressions 1. Reported hx of CHF - [facility] - Patient states EF has recovered - Symptomatically doing very well with no complaints 2. HTN - Well-controlled - Continue current therap (more content not included)... Normal [facility] Tobacco Screening.on 023 Adult depression screening assessment No [facility] [employer] DO Work Phone: Fall risk assessment a) No falls within the last year [facility] [employer] DO Work Phone: Tobacco use status CPHS b) No [facility] [employer] DO Work Phone: Quick Fluon 09-08-2022 FLUAV Ab CF (S) [Titer] Negative N [facility] Other FLUBV Ab CF (S) [Titer] Negative N [facility] Other SARS-CoV-2 (COVID-19) RNA NA A+probe Ql (Resp)on 09-08-2022 SARS-CoV-2 (COVID-19) RNA HECTOR+probe Ql (Unsp spec) Positive [facility] Other Auth for Release of Medical Recordson 11-15-2020 Auth for Release of Medical Records [id number] #1.00CD:127 Normal [facility] Formson 09-11-2020 Forms [id number] #1.00CD:127 Normal [facility] Physician Referralon 020 Physician Referral [id number]# 1.00CD:127 Normal [facility] Ambulatory Clinical Summaryo n 09-07-2020 Ambulatory Clinical Summary {[id number] Normal [facility] Patient Educationon 09-07-20 20 Patient Education Family Medicine Benign Prostatic Hyperplasia You have an enlarged prostate. This is common in elderly males. It is called BPH. This stands for benign prostate hyperplasia. The prostate gland is located in base of the bladder. When it grows, the prostate blocks the urethra. This is the tube which drains urine from the bladder. SYMPTOMS ? Weak urine stream. ? Dribbling. ? Feeling like the bladder has not emptied completely. ? Difficulty starting urination. ? Getting up frequently at night to urinate. ? Urinating more frequently during the day. Complete urinary blockage or severe pain with urination requires immediate attention. DIAGNOSIS ? Your caregiver often has a good idea what is wrong by taking a history and doing a physical exam. ? Special x-rays may be done. TREATMENT ? For mild problems, no treatment may be necessary. ? If the problems are moderate, medications may provide relief. Some of these work by making the prostate gland smaller. The herb saw palmetto is commonly used. ? If complete blockage occurs, a Manzanares catheter is usually left in place for a few days. ? Surgery is often needed for more severe problems. TURP is the prostate surgery for BPH which is done through the urethra. TURP stands for transurethral resection of the prostate. It involves cutting away chips from the prostate. It is done by removing chips so that they can come out through the penis. ? Techniques using heat, microwave and laser to remove the prostate blockage are also being used. HOME CARE INSTRUCTIONS ? Give yourself time when you urinate. ? Stay away from alcohol. ? Beverages containing caffeine such as coffee, tea and maria victoria can make the problems worse. ? Decongestants, antihistamines, and some prescription medicines can also make the problem worse. ? Follow up with your caregiver for further treatment as recommended. SEEK IMMEDIATE MEDICAL CARE IF: ? You develop increased pain with urination or are unable to pass your water. ? You develop severe abdominal pain, vomiting, a high fever, or fainting. ? You develop back pain or blood in your urine. MAKE SURE YOU: ? Understand these instructions. ? Will watch your condition. ? Will get help right away if you are not doing well or get worse. Document Released: 11/02/2006 Document Revised: 01/24/2013 Document Reviewed: 07/07/2008 ExitCare? Patient Information ?2013 [employer]. Erectile Dysfunction Erectile dysfunction (ED) is the inability to get a good enough erection to have sexual intercourse. ED may involve: ? Inability to get an erection. ? Lack of enough hardness to allow penetration. ? Loss of the erection before sex is finished. ? Premature ejaculation. ? Any combination of these problems if they occur more than 25% of the time. CAUSES ? Certain drugs, such as: ? Pain relievers. ? Antihistamines. ? Antidepressants. ? Blood pressure medicines. ? Water pills. ? Ulcer medicines. ? Muscle relaxants. ? Illegal drugs. ? Excessive drinking. ? Psychological causes, such as: ? Anxiety. ? Depression. ? Sadness. ? Exhaustion. ? Performance fear. ? Stress. ? Physical causes, such as: ? Artery problems. This may include diabetes, smoking, liver disease, or atherosclerosis. ? High blood pressure. ? Hormonal problems, such as low testosterone. ? Obesity. ? Nerve problems. This may include back or pelvic injuries, diabetes, multiple sclerosis, Parkinson's disease, or some surgeries. SYMPTOMS ? Inability to get an erection. ? Lack of enough hardness to allow penetration. ? Loss of the erection before sex is finished. ? Premature ejaculation. ? Normal erections at some times, but with frequent unsatisfactory episodes. ? Orgasms that are not satisfactory in sensation or frequency. ? Low sexual satisfaction in either partner because of erection problems. ? A curved penis occurring with erection. The curve may cause pain or may be too curved to allow for intercourse. ? Never having nighttime erections. DIAGNOSIS Your caregiver can often diagnose this condition by: ? Performing a physical exam to find other diseases or specific problems with the penis. ? Asking you detailed questions about the problem. ? Performing blood tests to check for diabetes or to measure hormone levels. ? Performing urine tests to find other underlying health conditions. ? Performing an ultrasound to check for scarring. ? Performing a test to check blood flow to the penis. ? Doing a sleep study at home to measure nighttime erections. TREATMENT ? You may be prescribed medicines by mouth. ? You may be given medicine injections into the penis. ? You may be prescribed a vacuum pump with a ring. ? Penile implant surgery may be performed. You may receive: ? An inflatable implant. ? A semi-rigid implant. ? Blood vessel surgery may be performed. HOME CARE INSTRUCTIONS ? Take all medicine as directed by your caregiver. Do not take any other medicines without talking to your caregiver first. ? Follow your caregiver's directions for specific treatments as prescribed. ? Follow up with your caregiver as directed. Document Released: 10/30/2001 Document Revised: 01/24/2013 Document Reviewed: 02/22/2012 ExitCare? Patient Information ?2013 [employer]. [facility] Urology Office/Clinic Noteon 09-07-2020 Urology Office/Clinic Note Chief Complaint New Pt-ED HPI Staff Pt is a new pt, never before seen in our office. He is [facility]. Has been having difficulty achieving and maintaining erection. Unsure how long he has had the problem. what good is the lead in your pencil if you have no one to write to Has tried Viagra 50mg in the past, did work at that time. in 2012. Had no reason to take it until recently. States desire is not the problem. Denies dysuria, hematuria. Occasional slow start to stream in the mornings. Denies all other complaints urinating. History of Present Illness HE gets occ a.m. erections. Desire is good. Noah get a full erection on his own. cant use pde5s due to nitro meds. reviewed [employer] papers. Reviewed UA. There have been no associated fever, chills, flank pain or blood in the urine. Pt is not having any burning with urination. Review of Systems PHQ Score Initial Depression Screen Score: 0 ROS - Provider Constitutional: denies weight loss, denies hot flashes. Eyes: denies eye problems. Gastrointestinal: denies nausea, denies vomiting. Cardiovascular: denies chest pain or angina. Integumentary: no dryness Musculoskeletal: denies musculoskeletal symptoms. ENMT: denies otopharyngeal symptoms. Respiratory: no shortness of breath. Heme/Lymph: denies easy bleeding tendency, denies easy bruising tendency. Psychiatric: no confusion, no anxiety. Genitourinary: denies dysuria, denies hematuria, denies discharge, denies urinary frequency, denies urinary hesitancy, denies nocturia, denies incontinence, denies genital sores, denies decreased libido, and moderate erectile dysfunction. Physical Exam Vitals & Measurements HR: 64(Peripheral) RR: 16 BP: 168/91 HT: 188.0 cm HT: 188 cm WT: 129.3 kg WT: 129.3 kg BMI: 36.58 General Appearance: alert, no distress, well nourished, well developed male. Head: normocephalic . Eyes: normal orbit and globe. ENMT: normal examination of external ears. Chest: Lungs CTA, respirations non labored. Cardiovascular: regular rate and rhythm. Abdomen: soft, non distended, no tenderness, no mass or organomegaly, no hernia. Genitourinary: normal scrotum, normal testes, normal urethra, normal epididymis, normal vas deferens/spermatic cord. Flank Pain: none. Bladder: nonpalpable. Penis: normal shaft, normal glans. Prostate: normal prostate, estimated weight 40 gms, no hard nodule observed. Lymph Nodes: unremarkable palpation of the cervical area. Skin: warm, dry, no bruising. Psychiatric: cooperative, affect appropriate for age, normal judgement, euthymic mood. Assessment/Plan 1. ED (erectile dysfunction) (N52.9: Male erectile dysfunction, unspecified) Pt has tried Viagra 50mg in the past and states this did not work for him. Pt is unable to take any ED medications due to pt being on Nitro. Pt states that he has woken up with an erections 1x maybe once a month. Discussed options for ED, erection pumps, MUSE intraurethral pellet, intracorporal injection therapy, and surgical options. Pt states that the desire for sex is there. Pt shows more interest in the vacuum device, brochure will be given today. Pt is to call the office if he would like to learn more about P4 injections. At this time pt will be PRN. Pt is to call the office if there is any issues at arise. Popeye muse was discussed briefly due to pt asking about this medication. 2. Proteinuria (R80.9: Proteinuria, unspecified) UA today shows 100mg in the sample given. 3. BPH without urinary obstruction (N40.0: Benign prostatic hyperplasia without lower urinary tract symptoms) Pt is not on any BPH medications at this time. Pt is not voicing any urinary concerns at this time. Pt states that [facility], and states that the levels are normal. SHANELLE was done today and was negative for any nodules. I have reviewed the previous health record information and history for this patient from Dr. Jackson Follow-up With When Contact Information JEAN CLAUDE JARA, Kevin Roberts Only if needed [facility] [address], [place] [address] [phone] Additional Instructions: Patient Education Benign Prostatic Hyperplasia Erectile Dysfunction I, Lashell Kimbrough, personally scribed for Dr. Jackson on 09/07/2020 11:16:07. . Documentation recorded by the scribe, Lashell Kimbrough, accurately reflects the services(s) I performed and decisions made by me. Authenticated by Dr. Jackson on 09/07/2020 11:19:52. Problem List/Past Medical History Ongoing BPH without urinary obstruction Depression Diabetes type 2, controlled ED (erectile dysfunction) Heart disease Hypertension Kidney stone Proteinuria Historical No qualifying data Medications aspirin 81 mg oral tablet, Daily atorvastatin 10 mg Tab, 5 mg= 0.5 tab(s), Oral, Daily carvedilol 25 mg Tab, 25 mg= 1 tab(s), Oral, BID Celebrate Multivitamin, Daily furosemide 20 mg Tab, Oral, As Directed gabapentin 100 mg Cap, 100 mg= 1 cap(s), Oral, BID glipiZIDE 5 mg Tab, 5 mg= 1 tab(s), Oral, BID hydrALAZINE 10 mg Tab, 10 mg= 1 tab(s), Oral, TID isosorbide mononitrate 30 mg ER Tab, 30 mg= 1 tab(s), Oral, Daily Vitamin D3 2000 intl units, 2000 International_Unit, BID Allergies No Known Medication Allergies Social History Tobacco Never (less than 100 in lifetime) Tobacco Use:. Never Smokeless Tobacco Use:., 09/07/2020 Family History Hypertension: Father. Immunizations Vaccine Date Status Comments influenza virus vaccine, inactivated - Not Given Patient Refuses Lab Results Ambulatory Point of Care Results Bilirubin Urine Dipstick: Negative (09/07/20 10:27:00) Blood Urine Dipstick: Negative (09/07/20 10:27:00) Glucose Urine Dipstick: Negative (09/07/20 10:27:00) Ketones Urine Dipstick: Negative (09/07/20 10:27:00) Leukocytes Urine Dipstick: Negative (09/07/20 10:27:00) Nitrite Urine Dipstick: Negative (09/07/20 10:27:00) Protein Urine Dipstick: 2+ (100 mg/dl) (09/07/20 10:27:00) Specific Sidell Urine Dipstick: 1.025 (09/07/20 10:27:00) Urine Appearance Urine Dipstick: Clear (09/07/20 10:27:00) Urine Color Urine Dipstick: Yellow (09/07/20 10:27:00) Urobilinogen Urine Dipstick: Normal 0.2-1 EU/dl (09/07/20 10:27:00) pH Urine Dipstick: 5.5 (09/07/20 10:27:00) Normal [facility] Comment on above: Result Comment: Elec tronically Signed By: Kevin JACKSON MD\.br\Date and Time Signed: 09/07/20 11:19 EDT\.br\Electronically Co-Signed By: Lashell Kimbrough MA\.br\Date and Time Co-Signed: 09/07/20 11:16 EDT Vital Signs Date Time Vital Sign Value Performing Clinician Facility 11-18-2023 11:20-0500 Body height 185.42 cm [facility] Other [facility] Other 11-18-2023 11:20-0500 Body mass index (BMI) [Ratio] 36.15 kg/m2 [facility] Other [facility] Other 11-18-2023 11:20-0500 Body weight 124.29 kg [facility] Other [facility] Other 11-18-2023 11:20-0500 Diastolic blood pressure 70 mm[Hg] [facility] Other [facility] Other 11-18-2023 11:20-0500 Respiratory rate 18 /min Jose Yu Other [facility] Other 11-18-2023 11:20-0500 SaO2% (BldA) [Mass fraction] 96 % Joes Yu Other [facility] Other 11-18-2023 11:20-0500 Systolic blood pressure 132 mm[Hg] Jose Yoonia Other [facility] Other 10-21-2023 12:17-0500 Diastolic blood pressure 78 mm[Hg] MD Jun Perez Work Phone: [facility] 10-21-2023 12:17-0500 Heart rate 54 /min MD Jun Perez Work Phone: [facility] 10-21-2023 12:17-0500 Respiratory rate 16 /min MD Jun Perez Work Phone: [facility] 10-21-2023 12:17-0500 SaO2% (BldA) [Mass fraction] 98 % MD Jun Perez Work Phone: [facility] 10-21-2023 12:17-0500 Systolic blood pressure 144 mm[Hg] MD Jun Perez Work Phone: [facility] 10-21-2023 10:35-0500 Body height 187.96 cm MD Jun Perez Work Phone: [facility] 10-21-2023 10:35-0500 Body temperature 97.8 [degF] MD Jun Perez Work Phone: [facility] 10-21-2023 10:35-0500 Body weight 121.1 kg MD Jun Perez Work Phone: [facility] 10-15-2023 11:23-0500 Body height 188 cm Britney Yu MD Work Phone: [facility] 10-15-2023 11:23-0500 Body mass index (BMI) [Ratio] 35.31 kg/m2 Britney Yu MD Work Phone: [facility] 10-15-2023 11:23-0500 Body weight 124.74 kg Britney Yu MD Work Phone: [facility] 10-15-2023 11:23-0500 Diastolic blood pressure 82 mm[Hg] Britney Yu MD Work Phone: [facility] 10-15-2023 11:23-0500 Heart rate 64 /min Britney Yu MD Work Phone: [facility] 10-15-2023 11:23-0500 Systolic blood pressure 130 mm[Hg] Britney Yu MD Work Phone: [facility] 09-28-2023 10:32-0500 Body height 188 cm Britney Yu MD Work Phone: [facility] 09-28-2023 10:32-0500 Body mass index (BMI) [Ratio] 36.21 kg/m2 Britney Yu MD Work Phone: [facility] 09-28-2023 10:32-0500 Body weight 127.91 kg Britney Yu MD Work Phone: [facility] 09-28-2023 10:32-0500 Diastolic blood pressure 80 mm[Hg] Britney Yu MD Work Phone: [facility] 09-28-2023 10:32-0500 Heart rate 64 /min Britney Yu MD Work Phone: [facility] 09-28-2023 10:32-0500 Systolic blood pressure 138 mm[Hg] Britney Yu MD Work Phone: [facility] 09-17-2023 09:45-0400 Body height 185.42 cm Tondra Mapus Other [facility] Other 09-17-2023 09:45-0400 Body mass index (BMI) [Ratio] 37.33 kg/m2 Tondra Mapus Other [facility] Other 09-17-2023 09:45-0400 Body weight 128.37 kg Tondra Mapus Other [facility] Other 09-17-2023 09:45-0400 Diastolic blood pressure 68 mm[Hg] Tondra Mapus Other [facility] Other 09-17-2023 09:45-0400 Respiratory rate 18 /min Tondra Mapus Other [facility] Other 09-17-2023 09:45-0400 SaO2% (BldA) [Mass fraction] 96 % Tondra Mapus Other [facility] Other 09-17-2023 09:45-0400 Systolic blood pressure 128 mm[Hg] Tondra Mapus Other [facility] Other 06-08-2023 11:25-0400 Body height 187.96 cm Jun Perez [facility] [employer] Work Phone: 06-08-2023 11:25-0400 Body mass index (BMI) [Ratio] 36.72 kg/m2 Jun Perez [facility] [employer] Work Phone: 06-08-2023 11:25-0400 Body surface area Derived from formula 2.53 m2 Jun Perez Work Phone: [facility] DO Work Phone: 06-08-2023 11:25-0400 Body weight 129.73 kg Jun Perez Work Phone: [facility] [employer] DO Work Phone: 06-08-2023 11:25-0400 Diastolic blood pressure 68 mm[Hg] Jun Perez Work Phone: [facility] DO Work Phone: 06-08-2023 11:25-0400 Heart rate 56 /min Jun Perez Work Phone: [facility] [employer] DO Work Phone: 06-08-2023 11:25-0400 Systolic blood pressure 136 mm[Hg] Jun Perez Work Phone: [facility] [employer] DO Work Phone: 05-14-2023 10:45-0400 Body height 187.96 cm Jun Perez Work Phone: [facility] [employer] DO Work Phone: 05-14-2023 10:45-0400 Body mass index (BMI) [Ratio] 36.85 kg/m2 Jun Perez Work Phone: [facility] DO Work Phone: 05-14-2023 10:45-0400 Body surface area Derived from formula 2.53 m2 Jun Perez Work Phone: [facility] DO Work Phone: 05-14-2023 10:45-0400 Body weight 130.18 kg Jun Perez Work Phone: [facility] [employer] DO Work Phone: 05-14-2023 10:45-0400 Diastolic blood pressure 80 mm[Hg] Jun Perez Work Phone: [facility] [facility] Work Phone: 05-14-2023 10:45-0400 Heart rate 56 /min Jun Perez Work Phone: [facility] DO Work Phone: 05-14-2023 10:45-0400 Systolic blood pressure 128 mm[Hg] Jun Perez Work Phone: [facility] 250 DO Work Phone: 04-17-2023 09:15-0400 Body height 185.42 cm Jun Perez Other [facility] Other 04-17-2023 09:15-0400 Body mass index (BMI) [Ratio] 38.52 kg/m2 Jun Perez Other [facility] Other 04-17-2023 09:15-0400 Body weight 132.45 kg Jun Perez Other [facility] Other 04-17-2023 09:15-0400 Diastolic blood pressure 77 mm[Hg] Jun Perez Other [facility] Other 04-17-2023 09:15-0400 Systolic blood pressure 146 mm[Hg] Jun Perez Other [facility] Other 04-16-2023 11:40-0400 Body height 185.42 cm Tj Mayo Other [facility] Other 04-16-2023 11:40-0400 Body mass index (BMI) [Ratio] 39.14 kg/m2 Tj Mayo Other [facility] Other 04-16-2023 11:40-0400 Body temperature 97.8 [degF] Tj Mayo Other [facility] Other 04-16-2023 11:40-0400 Body weight 134.58 kg Tj Mayo Other [facility] Other 04-16-2023 11:40-0400 Diastolic blood pressure 80 mm[Hg] Tj Mayo Other [facility] Other 04-16-2023 11:40-0400 Respiratory rate 18 /min Tj Mayo Other [facility] Other 04-16-2023 11:40-0400 SaO2% (BldA) [Mass fraction] 97 % Tj Mayo Other [facility] Other 04-16-2023 11:40-0400 Systolic blood pressure 144 mm[Hg] Tj Mayo Other [facility] Other 04-10-2023 15:44-0400 Body height 187.96 cm Jun Perez [facility] Work Phone: 04-10-2023 15:44-0400 Body mass index (BMI) [Ratio] 25.17 kg/m2 Jun Perez Work Phone: [facility] DO Work Phone: 04-10-2023 15:44-0400 Body surface area Derived from formula 2.15 m2 Jun Perez Work Phone: [facility] DO Work Phone: 04-10-2023 15:44-0400 Body weight 88.91 kg Jun Perez Work Phone[facility] DO Work Phone: 04-10-2023 15:44-0400 Diastolic blood pressure 72 mm[Hg] Jun Perez Work Phone[facility] DO Work Phone: 04-10-2023 15:44-0400 Heart rate 64 /min Jun Perez Work Phone: [facility] DO Work Phone: 04-10-2023 15:44-0400 Systolic blood pressure 126 mm[Hg] Jun Perez Work Phone: [facility] DO Work Phone: 02-17-2023 12:15-0400 Body height 185.42 cm Jun Perez Other [facility] Other 02-17-2023 12:15-0400 Body mass index (BMI) [Ratio] 38.39 kg/m2 Jun Perez Other [facility] Other 02-17-2023 12:15-0400 Body temperature 98.6 [degF] Jun Perez Other [facility] Other 02-17-2023 12:15-0400 Body weight 132 kg Jun Perez Other [facility] Other 02-17-2023 12:15-0400 Diastolic blood pressure 82 mm[Hg] Jun Perez Other [facility] Other 02-17-2023 12:15-0400 SaO2% (BldA) [Mass fraction] 97 % Jun Perez Other [facility] Other 02-17-2023 12:15-0400 Systolic blood pressure 122 mm[Hg] Jun Perez Other [facility] Other 02-04-2023 16:40-0400 Body height 185.42 cm Tj Mayo Other [facility] Other 02-04-2023 16:40-0400 Body mass index (BMI) [Ratio] 38.28 kg/m2 Tj Mayo Other [facility] Other 02-04-2023 16:40-0400 Body weight 131.63 kg Tj Mayo Other [facility] Other 02-04-2023 16:40-0400 Diastolic blood pressure 96 mm[Hg] Tj Mayo Other [facility] Other 02-04-2023 16:40-0400 Respiratory rate 18 /min Tj Mayo Other [facility] Other 02-04-2023 16:40-0400 SaO2% (BldA) [Mass fraction] 98 % Tj Mayo Other [facility] Other 02-04-2023 16:40-0400 Systolic blood pressure 164 mm[Hg] Tj Mayo Other [facility] Other 01-23-2023 09:16-0500 Body height 187.96 cm Jun Perez Work Phone[facility] DO Work Phone: 01-23-2023 09:16-0500 Body mass index (BMI) [Ratio] 37.75 kg/m2 Jun Perez Work Phone: [facility] 250 DO Work Phone: 01-23-2023 09:16-0500 Body surface area Derived from formula 2.56 m2 Jun Perez Work Phone: [facility] 250 DO Work Phone: 01-23-2023 09:16-0500 Body weight 133.36 kg Jun Perez Work Phone: [facility] 250 DO Work Phone: 01-23-2023 09:16-0500 Diastolic blood pressure 82 mm[Hg] Jun Perez Work Phone: [facility] 250 DO Work Phone: 01-23-2023 09:16-0500 Heart rate 63 /min Jun Perez Work Phone: [facility] 250 DO Work Phone: 01-23-2023 09:16-0500 Systolic blood pressure 136 mm[Hg] Jun Perez Work Phone: [facility] 250 DO Work Phone: 12-26-2022 10:52-0500 Diastolic blood pressure 80 mm[Hg] Jun Perez Work Phone: [facility] 250 DO Work Phone: 12-26-2022 10:52-0500 Systolic blood pressure 148 mm[Hg] Jun Perez Work Phone: [facility] 250 DO Work Phone: 12-26-2022 10:51-0500 Body height 187.96 cm Jun Perez Work Phone: [facility] 250 DO Work Phone: 12-26-2022 10:51-0500 Body mass index (BMI) [Ratio] 37.75 kg/m2 Jun Perez Work Phone: [facility] 250 DO Work Phone: 12-26-2022 10:51-0500 Body surface area Derived from formula 2.56 m2 Jun Perez Work Phone: [facility] 250 DO Work Phone: 12-26-2022 10:51-0500 Body weight 133.36 kg Jun Perez Work Phone: [facility] 250 DO Work Phone: 12-26-2022 10:51-0500 Diastolic blood pressure 80 mm[Hg] Jun Perez Work Phone: [facility] 250 DO Work Phone: 12-26-2022 10:51-0500 Heart rate 61 /min Jun Perez Work Phone: [facility] 250 DO Work Phone: 12-26-2022 10:51-0500 Systolic blood pressure 146 mm[Hg] Jun Perez Work Phone: [facility] [employer] 250 DO Work Phone: 12-01-2022 16:00-0500 Body height 185.42 cm Jun Perez Other [facility] Other 12-01-2022 16:00-0500 Body mass index (BMI) [Ratio] 38.92 kg/m2 Jun Perez Other [facility] Other 12-01-2022 16:00-0500 Body weight 133.81 kg Jun Perez Other [facility] Other 12-01-2022 16:00-0500 Diastolic blood pressure 80 mm[Hg] Jun Perez Other [facility] Other 12-01-2022 16:00-0500 SaO2% (BldA) [Mass fraction] 98 % Jun Kun Other [facility] Other 12-01-2022 16:00-0500 Systolic blood pressure 140 mm[Hg] Jun Perez Other [facility] Other 11-20-2022 10:30-0500 Body height 187.96 cm Edie Lito Other [facility] Other 11-20-2022 10:30-0500 Body mass index (BMI) [Ratio] 37.61 kg/m2 Edie Lito Other [facility] Other 11-20-2022 10:30-0500 Body weight 132.9 kg Edie Lito Other [facility] Other 11-20-2022 10:30-0500 Diastolic blood pressure 79 mm[Hg] Ediesusan Morse Other [facility] Other 11-20-2022 10:30-0500 Respiratory rate 20 /min Edie Morse Other [facility] Other 11-20-2022 10:30-0500 SaO2% (BldA) [Mass fraction] 98 % Edie Morse Other [facility] Other 11-20-2022 10:30-0500 Systolic blood pressure 146 mm[Hg] Edie Brayanr Other [facility] Other 09-08-2022 10:15-0400 Body height 187.96 cm Phyllis Reyes Other [facility] Other 09-08-2022 10:15-0400 Body mass index (BMI) [Ratio] 36.59 kg/m2 Phyllis Amy Other [facility] Other 09-08-2022 10:15-0400 Body temperature 97.6 [degF] Phyllis Yoomond Other [facility] Other 09-08-2022 10:15-0400 Body weight 129.28 kg Phyllis Amy Other [facility] Other 09-08-2022 10:15-0400 Diastolic blood pressure 59 mm[Hg] Phyllis Yoomond Other [facility] Other 09-08-2022 10:15-0400 Respiratory rate 18 /min Phyllis Reyes Other [facility] Other 09-08-2022 10:15-0400 SaO2% (BldA) [Mass fraction] 97 % Phyllis Reyes Other [facility] Other 09-08-2022 10:15-0400 Systolic blood pressure 112 mm[Hg] Phyllis Amy Other [facility] Other 05-25-2022 13:35-0400 Body height 187.96 cm Phyllis Amy Other [facility] Other 05-25-2022 13:35-0400 Body mass index (BMI) [Ratio] 37.23 kg/m2 Phyllis Amy Other [facility] Other 05-25-2022 13:35-0400 Body temperature 97.4 [degF] Phyllis Ryees Other [facility] Other 05-25-2022 13:35-0400 Body weight 131.54 kg Phyllis Reyes Other [facility] Other 05-25-2022 13:35-0400 Diastolic blood pressure 82 mm[Hg] Phyllis Reyes Other [facility] Other 05-25-2022 13:35-0400 Respiratory rate 18 /min Phyllis Reyes Other [facility] Other 05-25-2022 13:35-0400 SaO2% (BldA) [Mass fraction] 96 % Phyllis Reyes Other [facility] Other 05-25-2022 13:35-0400 Systolic blood pressure 142 mm[Hg] Phyllis Reyes Other [facility] Other 04-30-2022 11:00-0400 Body height Mary Bryson Other [facility] Other 04-30-2022 11:00-0400 Body mass index (BMI) [Ratio] 37.23 kg/m2 Mary Bryson Other [facility] Other 04-30-2022 11:00-0400 Body weight 131.54 kg Mary Bryson Other [facility] Other Encounters Encounter Date Encounter Type Care Provider Facility Start: 11-19-2023 End: 11-19-2023 ambulatory Jun Perez Other [facility] Other Start: 11-19-2023 Office outpatient vi sit 15 minutes Jun Perez [facility] Start: 11-19-2023 Telephone encounter Tj Mayo [facility] Start: 11-18-2023 End: 11-18-2023 ambulatory Jose Adrianaalycia Other [facility] Other Start: 11-18-2023 Office outpatient ne w 45 minutes Jose Yu [facility] Start: 11-05-2023 End: 11-05-2023 ambulatory Britney Yu Facility:[facility] Start: 11-05-2023 End: 11-05-2023 ambulatory MD Jun Perez Work Phone: [facility] Work Phone: Start: 11-05-2023 End: 11-05-2023 Patient encounter procedure MD Jun Perez Work Phone: [facility] [place] Work Phone: Start: 11-04-2023 End: 11-04-2023 ambulatory Duncan Parham Other [facility] Other Start: 11-04-2023 Telephone encounter Duncan Parham [facility] Start: 10-26-2023 End: 10-26-2023 ambulatory Jun Perez Facility:[facility] Start: 10-26-2023 End: 10-26-2023 ambulatory MD Jun Perez Work Phone: [facility] Work Phone: Start: 10-26-2023 End: 10-26-2023 Patient encounter procedure MD Jun Perez Work Phone: [facility] [place] Work Phone: Start: 10-21-2023 End: 10-21-2023 ambulatory Jun Perez Facility:[facility] Start: 10-21-2023 End: 10-21-2023 Admission to same day surgery center MD Jun Perez Work Phone: [facility] Work Phone: Start: 10-21-2023 End: 10-21-2023 ambulatory MD Jun Perez Work Phone: [facility] Work Phone: Start: 10-15-2023 End: 10-15-2023 ambulatory [facility] Start: 10-15-2023 End: 10-15-2023 Office outpatient visit 25 minutes Britney Yu MD Work Phone: [facility] Comment on above: CHF (congestive hear t failure), NYHA class II, acute on chronic, combined (CMS/HCC); Primary hypertension; Nonischemic cardiomyopathy (CMS/HCC); Medication course changed; Hypertensive heart and CKD, 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); Mixed hyperlipidemia; Diabetes mellitus with kidney disease (CMS/HCC) Start: 09-28-2023 Telephone encounter Nancy MOSQUED[facility] Start: 09-28-2023 End: 09-28-2023 ambulatory [place] Other Start: 09-28-2023 End: 09-28-2023 Office outpatient visit 25 minutes Britney Yu MD Work Phone: [facility] Comment on above: Personality disorder (CMS/HCC) (Primary Dx); Obesity, morbid (CMS/HCC); Hypertensive heart and CKD, 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); CHF (congestive heart failure), NYHA class II, acute on chronic, combined (CMS/HCC); Diabetes mellitus with kidney disease (CMS/HCC); Mixed hyperlipidemia; Primary hypertension; Medication course changed Start: 09-25-2023 Patient encounter status Luis Yu MD Work Phone: [facility] Work Phone: Start: 09-17-2023 (DM) Diabetes Duncan Parham [facility] Start: 09-17-2023 Telephone encounter Nancy MOSQUEDA Nephrology Start: 09-17-2023 End: 09-17-2023 ambulatory MD Jun Perez Work Phone: [facility] Other Start: 09-17-2023 End: 09-17-2023 Patient encounter procedure MD Jun Perez Work Phone: [facility] [place] Work Phone: Start: 09-17-2023 Registered Recurring MD Jun Perez Work Phone: [facility] Work Phone: Start: 09-15-2023 End: 09-15-2023 ambulatory Rodney Victor Other [facility] [employer] Other Start: 09-15-2023 Telephone encounter Rodney AMAYA [facility] Start: 08-17-2023 End: 08-17-2023 ambulatory CAROLEE GONZALEZ Facility:[facility] Start: 06-08-2023 Office outpatient vi sit 25 minutes Jun Perez Work Phone: [facility] 250 DO Work Phone: Start: 05-14-2023 Office outpatient vi sit 25 minutes Jun Perez Work Phone: [facility] 250 DO Work Phone: Start: 05-14-[address] Jun Perez Facility: Start: 05-06-2023 End: 05-07-2023 ambulatory Ritchie Desai Facility:[facility] Start: 05-01-2023 End: 05-01-2023 ambulatory Jun Perez Other [facility] Other Start: 05-01-2023 Telephone encounter Jun Perez [facility] Start: 04-27-2023 ambulatory Odilia Mackenzie Facility:[id number] Start: 04-17-2023 End: 04-17-2023 ambulatory Jun Perez Other [facility] Other Start: 04-17-2023 Office outpatient vi sit 25 minutes Jun Perez [facility] Start: 04-16-2023 End: 04-16-2023 ambulatory Tj Mayo Other [facility] Other Start: 04-16-2023 Office outpatient vi sit 25 minutes Tj Mayo [facility] Start: 04-10-2023 Office outpatient vi sit 25 minutes Jun Perez Work Phone: [facility] 250 DO Work Phone: Start: 04-10-2023 Patient encounter procedure Jnu Perez Work Phone: [facility] 250 DO Work Phone: Start: 04-10-[address] Jun Perez Facility: Start: 04-10-2023 End: 04-11-2023 ambulatory TJ MAYO Facility: Start: 04-01-[address] Lashell Betancourt ty:[id number] Start: 03-31-2023 Encounter for preprocedural cardiovascular examination Dr. Lashell Burgess [facility] Start: 03-31-[address] Lashell Betancourt ty:[id number] Start: 03-31-2023 Encounter for preprocedural cardiovascular examination Dr. Lashell Burgess [facility] Start: 03-09-2023 End: 03-09-2023 ambulatory Tj Mayo Other [facility] Other Start: 03-09-2023 Telephone encounter Tj Mayo [facility] Start: 02-17-2023 End: 02-17-2023 ambulatory Tj Mayo [facility] Other Start: 02-17-2023 Office outpatient vi sit 15 minutes Jun Perez [facility] Start: 02-06-2023 End: 02-06-2023 ambulatory Tj Mayo Other [facility] Other Start: 02-06-2023 Telephone encounter Tj Mayo [facility] Start: 02-04-2023 End: 02-04-2023 ambulatory Tj Mayo Other [facility] Other Start: 02-04-2023 Office outpatient ne w 45 minutes Tj Mayo [facility] Start: 02-04-2023 Telephone encounter Tj Mayo [facility] Start: 01-23-2023 Office outpatient vi sit 25 minutes Jun Perez [facility] Work Phone: Start: 01-23-[address] Jun Perez Facility: Start: 12-29-2022 End: 12-29-2022 ambulatory Jun Perez Other [facility] Other Start: 12-29-2022 Telephone encounter Jun Perez [facility] Start: 12-26-2022 Office outpatient ne w 45 minutes Jun Perez [facility] Work Phone: Start: 12-26-[address] Malika Patel Facility: Start: 12-02-2022 End: 12-02-2022 ambulatory Jun Perez Other [facility] Other Start: 12-02-2022 Telephone encounter Jun Perez [facility] Start: 12-01-2022 End: 12-01-2022 ambulatory Jun Perez Other [facility] Other Start: 12-01-2022 Office outpatient ne w 60 minutes Jun Perez [facility] Start: 11-25-2022 End: 11-25-2022 ambulatory Edie Morse Other [facility] Other Start: 11-25-2022 Telephone encounter Edie Rohrbac her [facility] Start: 11-20-2022 End: 11-20-2022 ambulatory Edie Morse Other [facility] Other Start: 11-20-2022 Office outpatient ne w 30 minutes Edie Morse [facility] Start: 09-08-2022 End: 09-08-2022 ambulatory Phyllis Amy Other [facility] Other Start: 09-08-2022 Office outpatient vi sit 15 minutes Phyllis Amy [facility] Start: 05-25-2022 End: 05-25-2022 ambulatory Phyllis Amy Other [facility] Other Start: 05-25-2022 Office outpatient vi sit 15 minutes Phyllis Amy [facility] Start: 04-30-2022 End: 04-30-2022 ambulatory Mary Bryson Other [facility] Other Start: 04-30-2022 Office outpatient vi sit 25 minutes Mary Bryson [facility] Start: 03-13-2013 End: 03-14-2013 Emergency department patient visit NO REFERRING DR Facility:[facility] Patient encounter status Jun Perez Work Phone: [facility] 250 DO Work Phone: Procedures Date Procedure Procedure Detail Performing Clinician Start: 10-21-2023 Colonoscopy MD Jun Perez Work Phone: Start: 10-15-2023 FOLLOW UP IN CARDIOLOGY BRITNEY YU Start: 09-17-2023 Ultrasonography of bilateral kidneys MD Jun Perez Work Phone: Cataract surgery Jun joyce Work Phone: Cholecystectomy Jun whitney Work Phone: Excision of ganglion cyst Roberta Perez Work Phone: NEGATED: Highlighted row has not occurred! Colonoscopy Jun Perez Work Phone: Plan of Treatment Date Care Activity Detail Author Start: 03-28-2024 End: 03-28-2024 Patient encounter procedure 03/28/2024 10:45 AM EDT Office Visit [address] [id number] Britney Yu MD [facility] [address] [place] [address] [facility] Start: 10-29-2023 End: 10-15-2024 Basic metabolic 2000 panel - Serum or Plasma Basic Metabolic Panel Lab Routine CHF (congestive heart failure), NYHA class II, acute on chronic, combined (CMS/HCC) Nonischemic cardiomyopathy (CMS/HCC) Medication course changed Expected: 10/29/2023 (Approximate), Expires: 10/15/2024 [facility] Service Area Work Phone: Comment on above: Expected: 10/29/2023 (Approximate), Expires: 10/15/2024 Start: 10-22-2023 End: 10-15-2024 Basic metabolic 2000 panel - Serum or Plasma Basic Metabolic Panel Lab Routine CHF (congestive heart failure), NYHA class II, acute on chronic, combined (CMS/HCC) Nonischemic cardiomyopathy (CMS/HCC) Medication course changed Expected: 10/22/2023 (Approximate), Expires: 10/15/2024 [facility] Work Phone: Comment on above: Expected: 10/22/2023 (Approximate), Expires: 10/15/2024 Start: 10-21-2023 [facility] Start: 10-15-2023 End: 10-15-2023 Patient encounter procedure 10/15/2023 10:45 AM EST Office Visit [address] [phone] Britney Yu MD 254 [facility] [address] [place] [address] [facility] Start: 10-05-2023 End: 09-28-2024 Basic metabolic 2000 panel - Serum or Plasma Basic Metabolic Panel Lab Routine Hypertensive heart and CKD, ESRD on dialysis ([facility]) CHF (congestive heart failure), NYHA class II, acute on chronic, combined ([facility]) Diabetes mellitus with kidney disease ([facility]) Expected: 10/05/2023 (Approximate), Expires: 09/28/2024 [facility] Service Area Work Phone: Comment on above: Expected: 10/05/2023 (Approximate), Expires: 09/28/2024 Start: 09-28-2023 FUV, Provider: Britney Yu, Status: Pen, Time: 10:15 AM FUV, Provider: Britney Yu, Status: Pen, Time: 10:15 AM [facility] 250 DO Work Phone: Start: 07-22-2023 FUV, Provider: Odilia Olsen, Status: Pen, Time: 10:00 AM FUV, Provider: Odilia Olsen, Status: Pen, Time: 10:00 AM -[facility] 250 DO Work Phone: Start: 07-17-2023 Influenza vaccination Influenza Vacc ine (#1) [facility] Start: 06-26-2023 FUV, Provider: Lashell Burgess, Status: Pen, Time: 10:30 AM FUV, Provider: Lashell Burgess, Status: Pen, Time: 10:30 AM -[facility] 250 DO Work Phone: Start: 06-22-2023 FUV, Provider: Britney Yu, Status: Pen, Time: 11:00 AM FUV, Provider: Britney Yu, Status: Pen, Time: 11:00 AM -[facility] 250 DO Work Phone: Start: 06-08-2023 FUV, Provider: Britney Yu, Status: Pen, Time: 11:30 AM FUV, Provider: Britney Yu, Status: Pen, Time: 11:30 AM -[facility] 250 DO Work Phone: Start: 05-14-2023 FUV, Provider: Britney Yu, Status: Pen, Time: 11:00 AM FUV, Provider: Britney Yu, Status: Pen, Time: 11:00 AM [facility] Work Phone: Start: 04-27-2023 MUGA, Provider: ANGEL RAVI [facility] NUCLEAR 01,[id number], Status: Pen, Time: 2:30 PM MUGA, Provider: [facility] 01,[id number], Status: Pen, Time: 2:30 PM [facility] 250 DO Work Phone: Start: 02-24-2023 REST ONLY, Provider: [facility]LE[facility] 01,[id number], Status: Pen, Time: 12:30 PM REST ONLY, Provider: [facility] 01,[id number], Status: Pen, Time: 12:30 PM [facility] 250 DO Work Phone: Start: 02-19-2023 STRESSNUC2, Provider : [facility] NUCLE[facility] 01,[id number], Status: Pen, Time: 12:30 PM STRESSNUC2, Provider: [facility] 01,[id number], Status: Pen, Time: 12:30 PM [facility] 250 DO Work Phone: Start: 02-21-2022 COVID-19 Vaccine (2 - Pfizer series) COVID-19 Vaccine (2 - Pfizer series) [facility] Start: 2000 Zoster Vaccines (1 of 2) Zoste r Vaccines (1 of 2) [facility] Start: 1972 DTaP/Tdap/Td Vaccine s (1 - Tdap) DTaP/Tdap/Td Vaccines (1 - Tdap) [facility] Start: 1969 Urine screening for protein Diabetes: Urine Protein Screening [facility] Start: 1968 Hepatitis C screening Hepatitis C Sc reening [facility] Start: 1960 Diabetic foot examination Diabetes: Foot Exam [facility] Start: 1960 Glaucoma screening Diabetes: R etinopathy Screening [facility] Start: 1956 Pneumococcal Vaccine : 65+ Years (1 - PCV) Pneumococcal Vaccine: 65+ Years (1 - PCV) [facility] Start: 1950 Creatinine measurement Creatinine Le campos [facility] Start: 1950 [facility] Start: 1950 Hemoglobin A1c measurement Rosa betes: Hemoglobin A1C [facility] Start: 1950 Lipid panel Lipid Panel [facility] Start: 1950 Medicare Annual Well ness Visit Medicare Annual Wellness Visit (AWV) [facility] Start: 1950 Potassium measurement Potassium Leve l [facility] Start: 1950 Screening for malign ant neoplasm of colon [facility] Patient Education Colon Polypectomy (DC) [facility] Work Phone: Payers Date Payer Category Payer Self-pay [id number] 2022 Medicare [employer] MEDICARE [employer] G[employer] CHOICE [id number] 2022-Present [address] [address] [place] [address] [id number] 1959 Medicare [id number] 1950 Unknown [id number] [id number] 1950 Unknown [id number] 2.840.1.049468.3.579.2.356 1950 Unknown [id number] 2.16.840.1.257953.3.579.2.356 1950 Unknown [id number] 2.16.840.1.745710.3.579.2.356 1950 Unknown [id number] 2.16.840.1.250638.3.579.2.356 1950 Unknown [id number] 2.16.840.1.680850.3.579.2.8 1950 Unknown [id number] 2.16.840.1.327569.3.579.2.1068 1950 Unknown [id number] 2.16.840.1.146612.3.579.2.106 1950 Unknown [id number] 2.840.1.686236.3.579.2.718 1950 Unknown [id number] 2.0.1.587638.3.579.2. 1950 Unknown [id number] 2.0.1.757345.3.579.2.1244 1950 Unknown [id number] 2..1.864883.3.579.2.1244 Medicare [id number] .[id number] Medicare [id number] ..[id number] Medicare Medicare [id number] Unknown [id number] Unknown [id number] .[id number] Unknown [employer] CHO[employer] Unknown [id number] .0.1.174274.3.579.2.531 Unknown [id number] .0.1.273699.3.579.2.531 Unknown [id number] .0.1.712600.3.579.2.531 Unknown [id number] 2.840.1.016298.3.579.2.531 Unknown [id number] 2.840.1.216291.3.579.2.531 Unknown [id number] .840.1.547074.3.579.2.531 Social History Date Type Detail Facility Start: 09-28-2023 End: 10-15-2023 Sex Assigned At [facility] [employer] Other Start: 09-28-2023 End: 10-15-2023 No alcohol use No alcohol use -[facility] [address] DO Work Phone: Start: 04-10-2021 End: 10-21-2023 Tobacco smoking status NHIS Never smoked tobacco (finding) [facility] Start: 1950 Sex Assigned At Male F [facility] Start: 09-25-2023 Tobacco use and exposure Smokeless tobacco non-user [facility] Work Phone: Start: 09-28-2023 End: 10-15-2023 Alcohol intake Lifetime non-drinker (finding) [facility] Work Phone: Start: 1950 Sex Assigned At Not on file [facility] Work Phone: Start: 09-18-2023 End: 10-15-2023 Exposure to SARS-CoV-2 (event) Not sure [facility] Goals Date Patient Goal Desired Activity /State Clinical Notes 12-26-2012 to 11-19-2023 Note Date & Type Note Facility 11-19-2023 Evaluation note Encounter Date Diagnosis Assessment Notes Nov, Acute non-recurren t maxillary sinusitis (ICD-10 - J01.00) Sinus infections can be triggered by a secondary infection from a viral URI or even seasonal allergies. Take medications as directed. Use saline nasal spray prior to presciption nasal spray. Take medications as directed, and complete all doses of medication even if you start to feel better. Patient advised to follow up with PCP if symptoms persist or worsen. Patient verbalized understanding and agreement with treatment plan. 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 Had a LHC with [facility] in the past that was negative. 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 # Obesity - Has lost > 30 lbs in the last year which has helped his HTN and BP control.PCP: Dr. Zi Parham ([facility] [place]), Dr. Gracia Perez (in [place]) Nuclear MPI in 2022 at [facility] - EF 31%.Echo in 2022 at [facility] - EF 25-30%MUGA done 04/27/23 at [facility] - EF 27%. EKG 03/27/21 - NSR 63 bpm, 1st degree AVB, iLBBB. EKG 11/18/23 in clinic - NSR 67 bpm, 1st degree AVB, IVCD, nonspecific T wave abnormalities. -I reviewed his last [address] Britney Yu at [facility].- GDMT: Says that he didn't tolerate Entresto due to CKD and hyperkalemia. Thus stopped Entresto and avoid Aldactone due to hyperkalemia. Will start Lisiniopril back at his previous dose 2.5mg daily. Continue Jardiance, Coreg and Hydralazine. - Volume management: Is euvolemic without scheduled diuretics. Continue Jardiance.- HTN: Well controlled. Checks at home regularly 110-120/60s. Cont meds above.- F/u in 1 month with BMP before that visit. [facility] Other 12-06-[facility]23 [facility] History of Present illness Narrative* Britney Yu MD - 10/15/2023 10:45 AM EST Last seen 09/28/23 : We are optimizing patient's heart failure medications. Subjective : Reports feeling well without any lightheadedness presyncope or syncope. History so Far : 1. Nonischemic cardiomyopathy with varying estimates of LV ejection fraction, MUGA scan05/08 showed EF less than 30% 2. Patient is functional class I, and describes his quality of life is 9 out of 10. 3. He is currently optimized to proceed with surgery as planned, risk benefit is favorable, POC letter provided 4. He has hypertensive heart and kidney disease with stage IIIa kidney disease, he says he has single functioning kidney. 5. He was recently started on a tiny dose of lisinopril 2.5 mg daily. 6. He is taking carvedilol 3 times a day. 7. He has a personal history of COVID, and was extremely fatigued for several weeks after that. 8. He has varicose veins in his left lower extremity 9.BMI is excessive but he is working on it and is losing weight. He is a diabetic no symptoms of hypoglycemia. 10. Lexiscan Myoview March 2023-normal perfusion LV appears dilated and severely hypokinetic LVEF 31%transient ischemic dilatation 0.96 which is normal evidence of inferior attenuation artifact no prior study available for comparison patient has incomplete left bundle branch block and nonspecific ST-T abnormality on EKG. Objective Wt Readings from Last 3 Encounters: 10/15/23 125 kg (275 lb) 09/28/23 128 kg (282 lb) 06/08/23 130 kg (286 lb) Physical Exam: GENERAL APPEARANCE: in no acute distress. CHEST: Symmetric and non-tender. INTEGUMENT: Skin warm and dry HEENT: No gross abnormalities identified.No pallor or scleral icterus. NECK: Supple, no JVD, no bruit. NEURO/PSHCY: Alert and oriented x3; appropriate behavior and responses and responses LUNGS: Clear to auscultation bilaterally; normal respiratory effort. HEART: Rate and rhythm regular with no evident murmur; no gallop appreciated. ABDOMEN: Soft, non tender. MUSCULOSKELETAL: No gross deformities. EXTREMITIES: Warm There is no edema noted. Meds: Current Outpatient Medications Medication Instructions atorvastatin (Lipitor) 10 mg tablet 0.5 tablets, oral, Daily carvedilol (COREG) 12.5 mg, oral, 3 times daily cholecalciferol (VITAMIN D3) 50 mcg, oral, Daily empagliflozin (Jardiance) 25 mg 0.5 tablets, oral, Daily ferrous sulfate 65 mg, oral, Every other day, Do not crush, chew, or split. gabapentin (NEURONTIN) 100 mg, oral, 3 times daily losartan (COZAAR) 25 mg, oral, Daily sacubitriL-valsartan (Entresto) 97-103 mg tablet 0.5 tablets, oral, 2 times daily SAW PALMETTO ORAL oral, Daily Allergies Allergen Reactions Iodinated Contrast Media Shortness of breath LABS: I have requested results of recent basic metabolic profile to chart. Problem List: Patient Active Problem List Diagnosis Date Noted Nonischemic cardiomyopathy (CMS/HCC) 10/15/2023 Obesity, morbid ([facility]) 09/28/2023 Abnormal EKG 09/25/2023 Cardiomyopathy ([facility]) 09/25/2023 CHF (congestive heart failure), NYHA class II, acute on chronic, combined ([facility]) 09/25/2023 Diabetes mellitus with kidney disease ([facility]) 09/25/2023 First degree atrioventricular block 09/25/2023 Hyperlipidemia 09/25/2023 Medication course changed 09/25/2023 Obstructive sleep apnea, adult 09/25/2023 Personal history of COVID-19 09/25/2023 Pre-operative cardiovascular examination 09/25/2023 Primary hypertension 09/25/2023 Assessment: Systolic congestive heart failure, chronic Chronic kidney disease stage IIIa We are weaning him off hydralazine and uptitrating his Entresto patient understands rationale Recommendations: 1. Increase Entresto to 49/51 p.o. twice daily 2. After 2 weeks increase Entresto to 97/103 p.o. twice daily 3. Basic metabolic profile 1 week after initial up titration and 1 week after subsequent up titration 4. Continue to monitor blood pressure at home, report if symptomatic arterial hypotension below or equal to 100 mmHg 5. Follow-up in 6 months sooner if interval problems arise Continue heart healthy lifestyle Follow up : 6 months Britney Yu MD documented in this [facility] Work Phone: 1(688) 622-654711-30-2023 Instructions* Patient Instructions* Eric Corcoran MA - 10/15/2023 10:45 AM EST Please bring all medicines, vitamins, and herbal supplements with you when you come to the office. Prescriptions will not be filled unless you are compliant with your follow up appointments or have a follow up appointment scheduled as per instruction of your physician. Refills should be requested at the time of your visit. Fall Prevention Education Given documented in this [facility] Work Phone: 1(934) 389-906611-13-2023 History of Present illness Narrative* Britney Yu MD - 09/28/2023 10:15 AM EST Patient presents for follow-up after stress test, most recently seen in May 2023. Subjective : At last office visit we initiated Entresto after discontinuation of lisinopril. Recommendation was also discontinue hydralazine. Remains on Jardiance, no symptoms of hypoglycemia Reviewed laboratory data from March 2023 GFR was 47 potassium 4.5 hemoglobin and hematocrit 13.3 and 42 respectively Blood pressure is at target History so Far : 1. Nonischemic cardiomyopathy with varying estimates of LV ejection fraction, MUGA scan05/08 showed EF less than 30% 2. Patient is functional class I, and describes his quality of life is 9 out of 10. 3. He is currently optimized to proceed with surgery as planned, risk benefit is favorable, POC letter provided 4. He has hypertensive heart and kidney disease with stage IIIa kidney disease, he says he has single functioning kidney. 5. He was recently started on a tiny dose of lisinopril 2.5 mg daily. 6. He is taking carvedilol 3 times a day. 7. He has a personal history of COVID, and was extremely fatigued for several weeks after that. 8. He has varicose veins in his left lower extremity 9.BMI is excessive but he is working on it and is losing weight. He is a diabetic no symptoms of hypoglycemia. 10. Lexiscan Myoview March 2023-normal perfusion LV appears dilated and severely hypokinetic LVEF 31%transient ischemic dilatation 0.96 which is normal evidence of inferior attenuation artifact no prior study available for comparison patient has incomplete left bundle branch block and nonspecific ST-T abnormality on EKG. Objective Wt Readings from Last 3 Encounters: 09/28/23 128 kg (282 lb) 06/08/23 130 kg (286 lb) 05/14/23 130 kg (287 lb) Physical Exam: GENERAL APPEARANCE: in no acute distress. CHEST: Symmetric and non-tender. INTEGUMENT: Skin warm and dry HEENT: No gross abnormalities identified.No pallor or scleral icterus. NECK: Supple, no JVD, no bruit. NEURO/PSHCY: Alert and oriented x3; appropriate behavior and responses and responses LUNGS: Clear to auscultation bilaterally; normal respiratory effort. HEART: Rate and rhythm regular with no evident murmur; no gallop appreciated. ABDOMEN: Soft, non tender. MUSCULOSKELETAL: No gross deformities. EXTREMITIES: Warm There is no edema noted. Meds: Current Outpatient Medications Medication Instructions atorvastatin (Lipitor) 10 mg tablet 0.5 tablets, oral, Daily carvedilol (COREG) 12.5 mg, oral, 3 times daily cholecalciferol (VITAMIN D3) 50 mcg, oral, Daily empagliflozin (Jardiance) 25 mg 0.5 tablets, oral, Daily ferrous sulfate 65 mg, oral, Every other day, Do not crush, chew, or split. gabapentin (NEURONTIN) 100 mg, oral, 3 times daily hydrALAZINE (APRESOLINE) 37.5 mg, oral, 3 times daily, Three times daily losartan (COZAAR) 25 mg, oral, Daily SAW PALMETTO ORAL oral, Daily Allergies Allergen Reactions Iodinated Contrast Media Shortness of breath Problem List: Patient Active Problem List Diagnosis Date Noted Abnormal EKG 09/25/2023 Cardiomyopathy ([facility]) 09/25/2023 CHF (congestive heart failure), NYHA class II, acute on chronic, combined ([facility]) 09/25/2023 Diabetes mellitus with kidney disease ([facility]) 09/25/2023 First degree atrioventricular block 09/25/2023 Hyperlipidemia 09/25/2023 Hypertensive heart and CKD, ESRD on dialysis ([facility]) 09/25/2023 Medication course changed 09/25/2023 Obstructive sleep apnea, adult 09/25/2023 Personal history of COVID-19 09/25/2023 Pre-operative cardiovascular examination 09/25/2023 Primary hypertension 09/25/2023 Type 2 diabetes mellitus without complication ([facility]) 09/25/2023 Assessment: Patient does not appear euvolemic Patient has chronic systolic left heart failure functional class II Patient has diabetes without hypoglycemia with kidney disease Test results were reviewed. Recommendations: 1. Continue Entresto if affordable otherwise go back to hydralazine 2. Follow-up as scheduled Follow up : 6 months Britney [facility] MD [facility] Phone: 1([phone]) 265-929911-13-2023 Instructions* Patient Instructions* Davis Riggs MA - 09/28/2023 10:15 AM EST Please bring all medicines, vitamins, and herbal supplements with you when you come to the office. Prescriptions will not be filled unless you are compliant with your follow up appointments or have a follow up appointment scheduled as per instruction of your physician. Refills should be requested at the time of your visit. [facility] Work Phone: 1([phone]) 404-470711-02-2023 Evaluation note* Encounter Date Diagnosis Assessment Notes Treatment Notes Treatment Clinical Notes Sep, Dietary counseling and surveillance (ICD-10 - Z71.3) see above Sep, Type 2 diabetes mellitus with diabetic chronic kidney disease (ICD-10 - E11.22) 1. Controlled, a Type 2 diabetes with A1c of 6.7% 09/07/23 2. Blood glucose levels according to Dtime 3 cgm download 09/04/23-09/17/23: Avg glucose 148. >250-0%, >180-14%, 70-180-86%, <70-0%, <54-0%. CV 18.4%. Pt with hx CKD gfr 37 09/07 and hx chf. Discussed with pt adding once weekly glp1. Reviewed common s/e. No hx of men/mtc/pancreatit is. Pt agreeable to sample ozempic 0.5mg Pt would like to increase jardiance 25 mg and take half tabe once daily. Stop glipzide to reduce risk of hypoglycemia. Reviewed target fasting am/meal to meal glucose pattern 90/130; 2 hours after meal 140-180; bedtime 120/150. 3. Patient is alert, oriented and receptive to making changes or counseling Notes: Seen for an assessment of current glucose pattern, changes in treatment plan, counseling and coordination of care related to diabetes, risks, and benefits of treatment, medications, side effects. Given handouts to reinforce concepts reviewed during counseling, see scanned notes. TOPICS REVIEWED: 1. Time was spent reviewing: a. Basic concepts of diabetes, progressive beta cell , concepts of basal/bolus/correc tive insulin requirements. Basal: The goal is fasting blood glucose of 90-130mg. If fasting blood glucose starts to run under 100mg 3x's/ week, decrease dose by 10%. Bolus: The goal is to hold the blood glucose level steady meal to meal. If pt. is going to have increased physical activity after a meal, decrease the schedule meal dose prior to the activity by 30-50%. If pt. skips a meal do not take this dose. Correction: The goal is to correct an elevated glucose back into the 100-150mg range b. Nutrition: Concepts of healthy diet reviewed, encouraged to decrease saturated fat in diet and increase non-starchy vegetables and fruits in diet. BMI: Pt. needs to select one small change to decrease caloric intake or increase physical activity to help decrease weight. c. Correct treatment of hypoglycemia, carry a glucose source at all times on your person, in vehicles, and at bedside. Can use glucose tablets/4, four ounces of pop or juice equal to 15 G of carbohydrate. Blood glucose should be 100 mg/dl or higher when driving. d. ADA glucose goals for age and medical complexity reviewed e. Patient questions addressed 2. Activity/exercise: Encouraged to start any form of physical activity. Start low level and increase slowly to a minimal goal of 150 minutes/week. Limit activity to what is allowed by other issues such as cardiac, pulmonary or orthopedic restrictions. 3. Standards of care: Reminded to have an annual dilated eye exam, A1C every 3 months, urine testing for microalbumin once/year, check feet daily and report any cuts or sores that do not appear to be healing. 4. Meter: Plan to check blood glucose: Please check blood glucose levels 4 times/day. Back to back meals reveal effectiveness of bolus dosing.5. [facility]. Contact office if any issues or concerns with patterns of hypoglycemia, hyperglycemia, or diabetes medication issues. 6. Prescriptions: [facility] [place] [facility]/carmelita 3 cgm sent 09/17/23. Sample carmelita 3 cgm and ozempic 0.5mg x1 pen given today. Pt instructed to contact office in 1 month for refill ozempic. 7. Prescriptions will not be filled unless you are compliant with follow up appointments or have a follow appointment scheduled as per ordered by your provider. Refills should be requested at the time of your visit. Sep, HTN (hypertension) (ICD-10 - I10) on arb Sep, Hyperlipidemia (ICD-10 - E78.5) on statin Sep, BMI 37.0-37.9, adult (ICD-10 - Z68.37) 7 pound weight loss from last visit, continue with weight loss efforts. Sep, Other Patient here today for an appointment, Ozempic training completed. Patient cleaned his skin with alcohol pad to administer his first injection for Ozempic 0.25mg SQ in his right upper quadrant of her abdomen without difficulty. Patient states he is very anxious, I haven't diven myself an injection before . Patient was able to use correct technique. Instructed patient to dose 0.25 mg once a week for 4 weeks, then may slowly increase dose up to 0.50 mg once a week thereafter if he is able to tolerate. Discussed possible side effects and encouraged to maintain a healthy well-balanced diet. Encouraged to decrease carbonated beverages, avoid caffeine drinks like regular soda, tea, coffee, fatty dairy foods, spices, fried or high fat/carb foods, and alcohol. Consume lean protien, non-starchy vegetables for improved glycemia. Carmelita 3 education reviewed, sample provided. Patient is in agreement with plan. All questions answered. No further concerns. Encouraged to return for follow up visit. 30 minutes spent on education with Aleah DAVIS RN. [facility] Other 06-02-2023 Evaluation note* Encounter Date Diagnosis Assessment Notes Treatment Notes Treatment Clinical Notes Apr, Type 2 diabetes mellitus with hyperglycemia, without long-term current use of insulin (ICD-10 - E11.65) Handwrote referral for diabetes and MNT through [facility]. Discussed switching from glipizide to ozempic. He prefers to wait at this time. Apr, Chronic congestive heart failure, unspecified heart failure type (ICD-10 - I50.9) Advised he complete the MUGA and adequately discuss symptoms with his Rejoiner. He discussed that he does not have chest pain, dyspnea or significant edema. He has researched his EF and echo results. He does not feel that his symptoms are significant enough to proceed w pacer or defibrillator. Followup w Cardiology. Apr, Chronic kidney disease, stage III (moderate) (ICD-10 - N18.30) Reviewed notes and advised he follow Dr. Solis's recommendations. [facility] Other 06-01-2023 Evaluation note* Encounter Date Diagnosis Assessment Notes Treatment Notes Treatment Clinical Notes Apr, Chronic kidney disease, stage III (moderate) (ICD-10 - N18.30) He has a longstanding CKD due to the diabetes mellitus and hypertensive nephrosclerosis. His serum creatinine is 1.4 mg/dL. He has a subnephrotic range proteinuria. I discussed with him the importance of good DM HTN control to slow down the progression of CKD. Apr, Complex renal cyst (ICD-10 - N28.1) His renal US showed complex renal cyst in left kidney. Will repeat US in 6 months for surveillance Apr, Diabetes mellitus with chronic kidney disease (ICD-10 - E11.22) He has a noninsulin-dependent type 2 diabetes mellitus. Currently takes glipizide. Continue to follow-up with PCP. I have Prescribed oral Lisinopril . He denies any allergic reaction to it. He reported that he was likely taken off after he was found to have a kidney failure and an high potassium. I have explained to him he will benefit with the SGL 2 inhibitors including Farxiga Jardiance and needs to discuss with the PCP. He may also benefit with glycogen like peptide Victoza or Ozempic. Again advised to discuss with the PCP about it. We will repeat the serum potassium. Apr, Tim hy kid w cr kid I-IV (ICD-10 - I12.9) Blood pressure is above the target goal. He appears to be euvolemic. Will prescribe low-dose of lisinopril. Continue current antihypertensive medication. Apr, Nephrolithiasis (ICD-10 - N20.0) He denies any recent passage of the kidney stones. Advised him to adequately hydrate himself. Apr, Proteinuria (ICD-10 - R80.9) He has a proteinuria likely due to diabetic kidney disease. He has a mildly elevated free light chain ratio likely due to the diabetic kidney disease but unremarkable SPEP, UPEP serum and urine immunofixation. Apr, Anemia of renal disease (ICD-10 - D63.1) Hemoglobin within the goal. We will check iron studies B12 and folate level. [facility] Other 04-04-2023 Evaluation note* Encounter Date Diagnosis Assessment Notes Treatment Notes Treatment Clinical Notes Feb, Bronchitis (ICD-10 - J40) Bronchitis suspected due to wheezes, chest tightness, cough and/or impaired air movement. Medication prescribed. Avoid extreme heat and cold as this may exacerbate inflammation of airways. If wheezing, chest tightness and/or SOB occurs, go to ER. [facility] Other 03-22-2023 Evaluation note* Encounter Date Diagnosis Assessment Notes Treatment Notes Treatment Clinical Notes Jan, Chronic kidney disease, stage III (moderate) (ICD-10 - N18.30) Thanks for referring Mr. Alcantara to our office for an evaluation and management of CKD. As you know he has a longstanding CKD due to the diabetes mellitus and hypertensive nephrosclerosis. His baseline serum creatinine is 1.3 mg/dL. He has a subnephrotic range proteinuria. I discussed with him the importance of good DM HTN control to slow down the progression of CKD. I have ordered a renal ultrasound to reevaluate the renal anatomy. Jan, Solitary kidney (ICD-10 - Q60.0) He has a congenital solitary kidney. Jan, Diabetes mellitus with chronic kidney disease (ICD-10 - E11.22) He has a noninsulin-dependent type 2 diabetes mellitus. Currently takes glipizide. Continue to follow-up with PCP. He is not on ELISA or ARB due to the unclear reason. He denies any allergic reaction to it. Jan, Tim hy kid w cr kid I-IV (ICD-10 - I12.9) Blood pressures controlled. He appears to be euvolemic. Continue current antihypertensive medication. Jan, Nephrolithiasis (ICD-10 - N20.0) He denies any recent passage of the kidney stones. Advised him to adequately hydrate himself. Jan, Proteinuria (ICD-10 - R80.9) He has a proteinuria likely due to diabetic kidney disease. Other possibility is paraproteinemia. We will do a work-up to rule it out. [facility] Other 02-13-2023 Evaluation note* Encounter Date Diagnosis Assessment Notes Treatment Notes Treatment Clinical Notes Dec, Type 2 diabetes mellitus with other diabetic kidney complication, without long-term current use of insulin (ICD-10 - E11.29) Dec, Neuropathy of left lower extremity (ICD-10 - G57.92) [facility] Other 01-16-2023 Evaluation note* Encounter Date Diagnosis Assessment Notes Treatment Notes Treatment Clinical Notes Nov, Paronychia of great toe (ICD-10 - L03.039) Nov, Recurrent pain of right knee (ICD-10 - M25.561) Nov, Left heart failure with left ejection fraction greater than 40 percent (ICD-10 - I50.1) Nov, CKD (chronic kidney disease) stage 2, GFR 60-89 ml/min (ICD-10 - N18.2) Nov, Diabetic peripheral neuropathy (ICD-10 - E11.42) Nov, Type 2 diabetes mellitus with hyperglycemia, without long-term current use of insulin (ICD-10 - E11.65) Will monitor A1c and continue medications at this time. Nov, Precancerous skin lesion (ICD-10 - L98.9) [facility] Other 01-05-2023 Evaluation note* Encounter Date Diagnosis Assessment Notes Treatment Notes Treatment Clinical Notes Nov, Type 2 diabetes mellitus with other diabetic kidney complication, without long-term current use of insulin (ICD-10 - E11.29) Last A1c was 7.3 Patient is advised to work on healthy diet choices and appropriate servings, weight control, regular exercise as directed, reduced fat intake, and salt avoidance. Patient voiced understanding of this and agrees to this plan. Prior to your visit today we reviewed your chart and outlined the testing and treatment needed for your care. We discussed possible complications of diabetes including risk of heart disease, stroke, and kidney disease. Your goal is to keep uou HgA1C below 7 (preferably <6.5) and your blood pressure less than 130/85 (and preferably < 120/80) and mataining a healthy weight with a BMI less than 26. We are working together to acheive these goals with the following plan; healthier diet, understanding your medications, and your compliance. Barriers to these goals have been discussed. You have been given educational handouts. Nov, Primary hypertension (ICD-10 - I10) TO goal. Prior to your visit today we reviewed your chart and outlined the tetsing and treatment needed for your care. We discussed the possible complications of high blood pressure, including increased risk for heart disease, stroke, and kidney disease. Our goal is to keep your blood pressure below 130/85 (an preferably < 120/80) and maintain a healthy weight with a BMI less than 26. We are working together to acheive these goals with the following plan; healthier diet, increased activity and exercise, understanding your medicaitons, and your complaince. You have been given relevant education handouts. Nov, Chronic congestive heart failure, unspecified heart failure type (ICD-10 - I50.9) Stable. Uses lasix as needed. Referral placed to cardiology. Notify provider if weight gain of 2 or more pounds in one day, or 5 or more pounds in one week. Worsening shortness of breath that occurs while resting or with minimal activity. Waking up because of shortness of breath, dry cough, or wheezing. Swelling in your ankles, legs, or abdomen that becomes worse. Pain or discomfort in your chest, arm, or jaw that becomes more frequent, more severe, or that occurs with minimal activity. Chest pain that is worse with coughing or deep breathing. A persistent dry, hacking cough. Palpitations (pounding in the chest); dizzy or fainting spells; a heart rhythm that is too fast, too slow, or irregular. Excessive or persistent fatigue, or decreasing tolerance to exercise. Nausea, vomitting, or inability to eat, any symptoms that you experience and are concerned about. Take your medication as scheduled. Decrease sodium intake no more than 2 grams/day. Watch fluid intake monitor your intake and output. Nov, Stage 2 chronic kidney disease (ICD-10 - N18.2) Stable. Referral placed to the Nephrology. Nov, Neuropathy of left lower extremity (ICD-10 - G57.92) Stable. Taking Gabapentin and this controls symptoms. Nov, Other chronic pain (ICD-10 - G89.29) Nov, Pain in right knee (ICD-10 - M25.561) Discussed with patient knee pain and he would like to be referred back to ORtho for management of the meniscus tear. referral placed. Nov, Chronic cough (ICD-10 - R05.3) Discussed due to continued cough after COVID, will start work-up with CXR. will call with further recommendations after results. Nov, Lumbago with sciatica, left side (ICD-10 - M54.42) Stable. will call with any worsening ot change in back pain. No neuro/motor deficits, no midline vertebral tenderness, no traumatic injury. Patient to take medicatoins as directed. Instructed to take prednisone with food, SE discussed, Continue use of NSAIDs and Tylenol as needed, Ice/heat therapy. Rest, avoid strenuous activity or heavy lifting. Immediate eval by ER for warning s/sx as discussed, including but not limited to severe pain, saddle anesthesia, loss of bowel or bladder control. Patient verbalizes understanding and is agreeable to treatment plan. [facility] Other 10-24-2022 Evaluation note* Encounter Date Diagnosis Assessment Notes Treatment Notes Treatment Clinical Notes Aug, Contact with and (suspected) exposure to other viral communicable diseases (ICD-10 - Z20.828) Aug, COVID-19 (ICD-10 - U07.1) Discharge Instructions for COVID-19 (Suspected or Confirmed ) material was printed Drink plenty fluids, get plenty of rest. Take the azithromycin and prednisone as prescribed until gone. Continue your home medications as prescribed. You must quarantine for 5 days after the onset of your symptoms. Follow-up with your family physician if no improvement in 2 to 3 days. Go to the ER for worsening symptoms or concerns. [facility] Other 07-10-2022 Evaluation note* Encounter Date Diagnosis Assessment Notes Treatment Notes Treatment Clinical Notes May, Hordeolum externum of right lower eyelid (ICD-10 - H00.012) [facility] home care material was printed Use the eye ointment as prescribed. Apply warm compresses to your eye 2-3 times a day. Follow-up with your eye doctor if no improvement in 3 to 4 days. [facility] Other 06-15-2022 Evaluation note* Encounter Date Diagnosis Assessment Notes Treatment Notes Treatment Clinical Notes Apr, Primary osteoarthritis of left hand (ICD-10 - M19.042) Discussed non surgical treatment option to include oral and topical NSAIDs, oral and injectable steroid, bracing, hand therapy, use of ice/heat, We will defer the use of oral NSAIDs due to kidney issues. Patient instructed on the use of topical Voltaren Gel and use of neoprene brace. Left thumb MCP injected with cortisone under sterile technique, patient tolerated well Apr, Primary osteoarthritis of right knee (ICD-10 - M17.11) We performed a 1/1cc marcaine / kenalog cortisone injection into the knee joint under sterile technique. Patient tolerated the injection well without adverse reaction. Apr, Left hand pain (ICD-10 - M79.642) Apr, Acute pain of right knee (ICD-10 - M25.561) [facility] Other 09-01-2020 History of Present illness Narrative* Patient was originally seen by and then Odilia Goode at her recent office visit, and I have reviewed notes, and copied forward some of the information that was provided through Odilia's recent detailed assessment. 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 Most recent echo from April 2021 documents EF 25 to 30%. 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 There is documentation that he did see nephrology in the past and recommended SGLT2i but patient declined. October 2022 creatinine 1.5. * He is maintained on hydralazine but denies utilizing isosorbide in the past. Has as needed Lasix, usage is very rare. * Patient is no longer receiving care from [facility]: Transferred care to [facility] with new patient assessment by Dr. Burgess December 2022. * Patient presents to the office today primarily concerned with recent testing results. * Discussed the different sensitivity/specificity of ejection fraction evaluation between echocardiograms/MUGA/MPI. His MPI results are consistent with April 2021 echo findings. I do not have available documentation to me of EF in 2013. Nonetheless, he is requesting reevaluation with MUGA scan. In the past he has declined ICD implant, continues to do so today. Reports prior cardiac cath in 2012 withangiographically normal coronaries. Incomplete left bundle branch block, QRS 114. * Patient is here for preoperative cardiac risk assessment prior to arthroscopic knee surgery to be done next week. Patient has a meniscus tear. * He has been losing weight through heart healthy and lifestyle healthy choices, cutting portion size, being more active, lost 10 pounds already feels much better, and he is continuing the same process. * He has no history of coronary artery disease in fact he is noted to have angiographically normal coronary arteries and nonischemic cardiomyopathy that is presumed to mild. * Patient denies orthopnea PND shortness of breath with regular activities, such as mowing the grass,he remains very active. No clinical evidence of volume overload. EKG shows first-degree AV block and incomplete left bundle branch block normal QTc. Compared to EKG from January, there has been further prolongation of OH interval and mild elongation of QRS duration. * No history of palpitations lightheadedness presyncope syncope or falls. * Describes quality of life currently as 9 out of 10. * Obstructive sleep apnea, compliant with CPAP therapy * Follows with nephrology. * Has not used furosemide in over 6 months. * Assessment: * 1. Nonischemic cardiomyopathy with varying estimates of LV ejection fraction, most recent MUGA scanshowed EF less than 30% * 2. Patient is functional class I, and describes his quality of life is 9 out of 10. * 3. He is currently optimized to proceed with surgery as planned, risk benefit is favorable, POC letter provided * 4. He has hypertensive heart and kidney disease with stage IIIa kidney disease, he says he has single functioning kidney. * 5. He was recently started on a tiny dose of lisinopril 2.5 mg daily. * 6. He is taking carvedilol 3 times a day. * 7. He has a personal history of COVID, and was extremely fatigued for several weeks after that. * 8. He has varicose veins in his left lower extremity * BMI is excessive but he is working on it and is losing weight. * He is a diabetic no symptoms of hypoglycemia. * Recommendations: * 1. I will not change any of his cardiac medications at this time. * 2. I will see him back after his surgery, probably in 6 to 8 weeks * 3. I will plan to consolidate his current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 notes Becca Boykin 12/15/2022 12:08:55 PM >received notes and sent for review. closing referral at this time. Clinical Notes [id number] Reason 12/10/22 yearly sk in exam Diagnosis 1 Precancerous skin le edith (L98.9) Referral Organization [facility] Referring Provider First Name Jun Referring Provider Last Name Kun Referring Provider Specialty [facility] Referred Organization [facility] Referred Provider Tigre Russell Referred Address [address],[place],[address] Referred Provider Specialty Dermatology Referral Priority Routine Referral Appointment Date 2022-12-10 General Notes Becca Boykin 10:49:22 AM >received today, notes locked, attachments made, referral faxed Becca Boykin 12/15/2022 11:00:10 AM >faxed first attempt letter ShayneBecca antoine 12/15/2022 02:09:31 PM >received notes and sent for review Reason CLOSED evaluate Diagnosis 1 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 Referring Provider First Name Edie Referring Provider Last Name Luciaacher Referring Provider Specialty Nurse Pract itioner Referred Organization [facility] Nephrology Cli manpreet Vargas Referred Provider Tj Solis Referred Address [address],[place], [place],[address] Referred Provider Specialty Nephrology Referral Priority Routine General Notes Becca Boykin 11:14:39 AM >received today Becca Boykin 11/20/2022 11:15:11 AM >waiting for notes to be locked, and [employer] website is currently down to complete PA. will check back Becca Boykin 11/21/2022 09:08:45 AM >[employer] website is still down. will check back Becca Boykin 11/24/2022 09:17:04 AM >[employer] site still down Becca Boykin 11/25/2022 08:54:58 AM >site up, and no auth is required. attachment made, referral faxed Becca Boykin 12/05/2022 12:53:06 PM >waitng to see if can schedule since pt, said we are not in his network. TE was sent Becca Boykin 12/05/2022 01:10:13 PM >pt switched providers, so closing referral Reason CLOSED-changed prima ry providers evaluate Diagnosis 1 Chronic congestive h eart failure, unspecified heart failure type (I50.9) Referral Organization [facility] Referring Provider First Name Edie Referring Provider Last Name Luciaacher Referring Provider Specialty Nurse Pract itioner Referred Organization [facility] Referred Provider Hawa Diallo Referred Address [address],[place], [place],[address] Referred Provider Specialty Cardiac Surg niurka Referral Priority Routine Referral Appointment Date 2022-12-26 General Notes Oz Boykinya 11:08:29 AM >received today, waiting for notes to be locked, and [employer] website is down for Prior Auth. will check back Shayneroopaclinton Becca 11/21/2022 09:08:07 AM >[employer] website is still down at this time. Becca Boykin 11/24/2022 09:16:51 AM >[employer] site still down Becca Boykin 11/25/2022 08:54:58 AM >site up, and no auth is required. attachment made, referral faxed Becca Boykin 12/02/2022 09:47:35 AM >faxed first attempt letter Becca Boykin 12/03/2022 01:52:54 PM >received fax with appt date and time Reason CLOSED- changed prim jason providers evaluate and treat Diagnosis 1 Other chronic pain ( G89.29) Diagnosis 2 Pain in right knee ( M25.561) Referral Organization [facility] Referring Provider First Name Edie Referring Provider Last Name Lito Referring Provider Specialty Nurse Pract itioner Referred Organization [facility] [place] [facility] Referred Provider Tad Boucher Referred Address [address] [place],[address] Referred Provider Specialty Orthopedic S urgery Referral Priority Routine General Notes Shayneroopaclinton Becca 11:16:24 AM >received today, waiting for notes to be locked, and [employer] website is currently down at the moment. will folllow up ShayneBecca antoine 11/21/2022 09:09:03 AM >[employer] website is still currently down. will check back Becca Boykin 11/24/2022 09:17:20 AM >[employer] site is still down Becca Boykin 11/25/2022 08:54:58 AM >site up, and no auth is required. attachment made, referral faxed Becca Boykin 12/05/2022 12:53:06 PM >waitng to see if can schedule since pt, said we are not in his network. TE was sent Chief Complaint ADRIEL ALCANTARA is being seen for POC for Giselle Rt Knee.* 'here to discuss testing results' * ADRIEL ALCANTARA is being seen for cardiomyopathy. * 'here to discuss testing results' * ADRIEL ALCANTARA is being seen for cardiomyopathy. * Patient presents to the office ambulatory with steady gait, is accompanied by . * Last evaluated in clinic January 2023. * At that time, he was requesting cardiac risk stratification prior to orthopedic procedure and outpatient perfusion study showed no evidence of ischemia with dilated LVEF 31%. * I reviewed prior [facility] cardiology note dated August 25, 2022. 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 Most recent echo from April 2021 documents EF 25 to 30%. 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 There is documentation that he did see nephrology in the past and recommended SGLT2i but patient declined. October 2022 creatinine 1.5. * He is maintained on hydralazine but denies utilizing isosorbide in the past. Has as needed Lasix, usage is very rare. * Patient is no longer receiving care from [facility]: Transferred care to [facility] with new patient assessment by Dr. Burgess December 2022. * Patient presents to the office today primarily concerned with recent testing results. * Discussed the different sensitivity/specificity of ejection fraction evaluation between echocardiograms/MUGA/MPI. His MPI results are consistent with April 2021 echo findings. I do not have available documentation to me of EF in 2013. Nonetheless, he is requesting reevaluation with MUGA scan. In the past he has declined ICD implant, continues to do so today. Reports prior cardiac cath in 2013 withangiographically normal coronaries. Incomplete left bundle branch block, QRS 114. * From a symptom standpoint he remains functional class I. He remains aerobically active riding a recumbent bike approximately 3 miles on a daily basis, he works out at the gym approximately 4 times a week. He denies any fatigability, no dyspnea on exertion. No evidence orthopnea or PND. * He has had a CPAP machine for 20 years. He reports that usually calibrated yearly by the [facility] for management. * Otherwise, he will be having an orthopedic knee surgery in the near future. Recent favorable perfusion study, EF 31% currently functional class I stage C without evidence of decompensation. At this time, there are no prohibitive cardiovascular risk to proceed. * 'here to discuss testing results' * ADRIEL ALCANTARA is being seen for cardiomyopathy. * Patient presents to the office ambulatory with steady gait, is accompanied by . * Last evaluated in clinic January 2023. * At that time, he was requesting cardiac risk stratification prior to orthopedic procedure and outpatient perfusion study showed no evidence of ischemia with dilated LVEF 31%. * I reviewed prior [facility] cardiology note dated August 25, 2022. 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 Most recent echo from April 2021 documents EF 25 to 30%. 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 There is documentation that he did see nephrology in the past and recommended SGLT2i but patient declined. October 2022 creatinine 1.5. * He is maintained on hydralazine but denies utilizing isosorbide in the past. Has as needed Lasix, usage is very rare. * Patient is no longer receiving care from [facility]: Transferred care to [facility] with new patient assessment by Dr. Burgess December 2022. * Patient presents to the office today primarily concerned with recent testing results. * Discussed the different sensitivity/specificity of ejection fraction evaluation between echocardiograms/MUGA/MPI. His MPI results are consistent with April 2021 echo findings. I do not have available documentation to me of EF in 2013. Nonetheless, he is requesting reevaluation with MUGA scan. In the past he has declined ICD implant, continues to do so today. Reports prior cardiac cath in 2012 withangiographically normal coronaries. Incomplete left bundle branch block, QRS 114. * From a symptom standpoint he remains functional class I. He remains aerobically active riding a recumbent bike approximately 3 miles on a daily basis, he works out at the gym approximately 4 times a week. He denies any fatigability, no dyspnea on exertion. No evidence orthopnea or PND. * He has had a CPAP machine for 20 years. He reports that [facility] and [facility] to [facility] clinic for management. * Otherwise, he will be having an orthopedic knee surgery in the near future. Recent favorable perfusion study, EF 31% currently functional class I stage C without evidence of decompensation. At this time, there are no prohibitive cardiovascular risk to proceed. POC.POC.* Patient will call office and let us know if he decided to start entresto 24- if he starts entresto then he is to d/c lisinopril and hydralazine.and do a BMP in 1 week from starting and f/u in 2 weeks. * IF he calls and states he is not going to start entresto then he can continue his meds and f/u in 4months. * One Appointment will need canceled either way Chief Complaint and Reason for Visit Chief Complaint DM n18.30 n28.1 e11.22 i12.9 n20.0 r60.9 d63.1 Chief Complaint DM n18.30 n28.1 e11.22 i12.9 n20.0 r60.9 d63.1 iron defiency anemia Chief Complaint DM n18.30 n28.1 e11.22 i12.9 n20.0 r60.9 d63.1 iron defiency anemia I50.43 Chief Complaint DM n18.30 n28.1 e11.22 i12.9 n20.0 r60.9 d63.1 iron defiency anemia I50.43 I50.43 I42.8 Z79.899 Additional Source Comments INFORMATION SOURCE (unrecogn ized section and content) DATE CREATED AUTHOR 05/12/2018 [facility] DATE CREATED AUTHOR AUTHOR'S ORGANIZ ATION 11/16/2020 [facility] DATE CREATED AUTHOR AUTHOR'S ORGANIZ ATION 01/08/2023 [facility] DATE CREATED AUTHOR AUTHOR'S ORGANIZ ATION 04/26/2023 [facility] DATE CREATED AUTHOR AUTHOR'S ORGANIZ ATION 05/15/2023 [facility] DATE CREATED AUTHOR AUTHOR'S ORGANIZ ATION 05/15/2023 [facility] DATE CREATED AUTHOR AUTHOR'S ORGANIZ ATION 05/23/2023 [facility] DATE CREATED AUTHOR AUTHOR'S ORGANIZ ATION 08/21/2023 [facility] DATE CREATED AUTHOR AUTHOR'S ORGANIZ ATION 10/18/2023 [facility] DATE CREATED AUTHOR AUTHOR'S ORGANIZ ATION 11/13/2023 [facility] (unrecognized sect ion and content) No Status Records FoundNo Status Records FoundNo Status Records FoundNo Status Records FoundNo Status Records FoundNo Status Records FoundNo Status Records FoundNo Status Records FoundNo Status Records FoundNo Status Records Found REASON FOR VISIT (unrecogniz ed section and content) GI OPERATIVE AND PATH REPORT Reason Comments Follow-up 4 month Reason Comments Follow-up 2w Specialty Diagnoses / Procedures Referred By Contac t Referred To Contact Cardiology Diagnoses CHF (congestive heart failure), NYHA class II, acute on chronic, combined (CMS/HCC) Primary hypertension Procedures Follow Up In Cardiology Britney Yu MD 254 [facility] [address] [place] [address] Britney Yu MD 254 [facility] [address] [place] [address] Referral ID Status Reason Start Date Expiration Date V isits Requested Visits Authorized [id number] Authorized 09/28/2023 09/27/2024 1 1 Care Teams (unrecognized sec tion and content) Team Status: Active Member Role Status Dates Jun Perez MD Primary Care Provider Active Team Status: Inactive Member Role Status Dates Jun Perez MD Primary Care Provider Active Rodney Victor MD Attending Provider Active Team Status: Active Member Role Status Dates Jun Perez MD Primary Care Provider Active Duncan Parhma APRN Attending Provider Active Team Status: Inactive Member Role Status Dates Jun Perez MD Primary Care Provider Active Tj Solis MD Attending Provider Active Clay Miner Relationship Specialty Start Date End Date Jun Perez MD [address] [place] [address] [place] [address] PCP - General 12/26/22 Clay Miner Relationship Specialty Start Date End Date Jun Perez MD PCP - General 12/26/22 Team Status: Inactive Member Role Status Dates Jun Perez MD Primary Care Provider Active Britney Yu MD Attending Provider Active Goals (unrecognized section and content) Goals may be documented in a n alternate section FOR RECORDS PERTAINING TO PATIENTS WHO ARE OR HAVE BEEN ENROLLED IN A CHEMICAL DEPENDENCY/SUBSTANCEABUSE PROGRAM, SOME INFORMATION MAY BE OMITTED. This clinical summary was aggregated from multiple sources. Caution should be exercised in using it in the provision of clinical care. This summary normalizes information from multiple sources, and as a consequence, information in this document may materially change the coding, format and clinical context of patient data. In addition, data may be omitted in some cases. CLINICAL DECISIONS SHOULD BE BASED ON THE PRIMARY CLINICAL RECORDS. [employer] provides no warranty or guarantee of the accuracy or completeness of information in this document.
[2023-12-14 15:05] LABS: Anion Gap 13.5; BUN Creatinine Ratio 13.9; Calcium 9.1 mg/dL (8.5-10.1); Carbon Dioxide 25.8 mmol/L (21.0-32.0); Chloride 106 mmol/L (98-107); Estimated GFR (African America 53 (>=60); Estimated GFR (Non-African Ame 43 (>=60); Glucose 150 mg/dL (74-106); Potassium 4.3 mmol/L (3.5-5.1); Sodium 141 mmol/L (136-145)
== END 2023-12-14 13:22 | disposition home or self-care (01) ==
LOC: LAB 13:25
PROVIDERS: PCP Family Medicine
DX: E11.21 Type 2 diabetes mellitus with diabetic nephropathy (principal); N18.31 Chronic kidney disease, stage 3a; I12.9 Hypertensive chronic kidney disease with stage 1 through stage 4 chronic kidney disease, or unspecified chronic kidney disease; E11.22 Type 2 diabetes mellitus with diabetic chronic kidney disease
CPT/HCPCS: 36415; 80048

== ENCOUNTER 2023-12-24 15:53 | Emergency (ER) | payer MEDICARE, SELFPAY ==
[2023-12-24 15:58] VITALS: BP 163/67; PULSE 60; RESP 16; TEMP 37.1; O2SAT 97; BMI 34.7
--- NOTE | 2023-12-24 16:12 | ED_ITS ---
HPI - Head Injury General Chief complaint: Head Injury Stated complaint: Head Injury from fall Time Seen by Provider: 12/24/23 15:57 Source: patient Mode of arrival: walk-in Limitations: no limitations History of Present Illness HPI Narrative: Patient is a 72-year-old male who presents to the emergency department for the evaluation of a head injury. Patient states earlier today he tripped and hit the left occiput on the side of a heater. He states he continued to work throughout the day and has had no issues. He reports minimal soreness to the side of the neck and low back, He does have a history of chronic low back pain. He has no new peripheral paresthesias, visual changes, nausea, vomiting. He had no loss of consciousness. He does not take any blood thinners. The injury occurred several hours ago and he has had no issues. He states he only came to the emergency department because his was very concerned and wanted him to be evaluated. He has not had any bleeding from the nose or mouth. No other associated injuries. Related Data Allergies Allergy/AdvReac Type Severity Reaction Status Date / Time Iodinated Contrast Media Allergy Unknown Verified 12/24/23 15:58 Review of Systems ROS Constitutional Denies: fever or chills Ears, nose, mouth, and throat Denies: throat pain or nasal congestion Cardiovascular Denies: chest pain Respiratory Denies: shortness of breath Gastrointestinal Denies: nausea or vomiting Musculoskeletal Reports: back pain and neck pain Integumentary/Breast Denies: rash Neurological Denies: headache Endocrine Denies: excessive urination [facility] Social History Smoking status: Never smoker Exam Narrative Exam Narrative: Gen.: Awake, alert, in no distress Head: Normocephalic, Minimal swelling and faint abrasion to the left occiput with no large Hematomas or lacerations ENT: Moist mucous membranes; Minimal tenderness to the paracervical muscles of the left cervical spine with no posterior bony point tenderness of the C-spine Respiratory: No respiratory distress Back: No bony tenderness of the T-spine or lumbar spine Extremities: Moves extremities equally, no injuries noted Psych: Normal mood and affect Neuro: No focal neuro deficit Skin: Warm, dry, intact Constitutional Vital Signs, click to edit/add: Last Vital Signs Temp 98.8 F 12/24/23 15:58 Pulse 60 12/24/23 15:58 Resp 16 12/24/23 15:58 BP 163/67 H 12/24/23 15:58 Pulse Ox 97 12/24/23 15:58 O2 Del Method Room Air 12/24/23 15:58 Course Vital Signs Vital signs: Vital Signs Temperature 98.8 F 12/24/23 15:58 Pulse Rate 60 12/24/23 15:58 Respiratory Rate 16 12/24/23 15:58 Blood Pressure 163/67 H 12/24/23 15:58 Pulse Oximetry 97 12/24/23 15:58 Oxygen Delivery Method Room Air 12/24/23 15:58 Temperature 98.8 F 12/24/23 15:58 Pulse Rate 60 12/24/23 15:58 Respiratory Rate 16 12/24/23 15:58 Blood Pressure 163/67 H 12/24/23 15:58 Pulse Oximetry 97 12/24/23 15:58 Oxygen Delivery Method Room Air 12/24/23 15:58 MDM - Head Injury MDM Narrative Medical decision making narrative: Patient with no concussion type symptoms in the ER, no posterior midline tenderness of the cervical spine or thoracic spine/lumbar spine. He is well- hydrated, nontoxic with stable vital signs in the ER. He is on no anticoagulation. I discussed imaging with him, he prefers to defer at this time and I feel this is reasonable as he has no significant signs of severe head injury. He will return to the ER if symptoms change or worsen. Medical Records Attestation: I reviewed the patient's medical records. Discharge Plan Discharge Chief Complaint: Head Injury Clinical Impression: Closed head injury Patient Disposition: Home, Self-Care Time of Disposition Decision: 16:11 Condition: Good Instructions: Head Injury (ED) Stand Alone Forms: Portal Instructions Referrals: Pallavi Tristan MD [Primary Care Provider] - 1 week
== END 2023-12-24 16:46 | disposition home or self-care (01) ==
PROVIDERS: Emergency Provider Emergency Medicine; PCP Family Medicine
DX: S09.8XXA Other specified injuries of head, initial encounter (principal); W01.198A Fall on same level from slipping, tripping and stumbling with subsequent striking against other object, initial encounter
CPT/HCPCS: 99283

== ENCOUNTER 2024-01-04 11:17 | Outpatient (OUT) | payer MEDICARE, SELFPAY ==
--- OUTSIDE RECORDS SUMMARY | 2024-01-04 11:34 | XMS_ITS | CCD ---
Author Name Unknown Address [address] [place] [address] Organization [facility] Care Team Providers Care Paediatric Surgeon Name Role Phone NO REFERRING DR Unavailable Unavailable [employer] Unavailable Unavailable [facility]CH, JNO Unavailable Unavailable Phyllis Reyes Unavailable Mary Bryson Unavailable Jun Perez Unavailable Unavailable Unavailable Edie Morse Unavailable Jun Perez Unavailable Mayo, Tj Unavailable MAYO, TJ Attending Unavailable MAYO, TJ Consulting Unavailable MAYO TJ Admitting Unavailable Dr. Malika Patel Primary Care Robb Osborn, Dr. Jerez Attending Unavailable Anurag, Dr. Jerez Referring Unavailable Kun, Dr. Jun Patel Primary Care Jacobo ailronaldo Osborn, Dr. Jerez Attending Unavailable Anurag, Dr. Jerez Referring Unavailable Kun, Dr. Jun Patel Primary Care Unav Odilia Martinez Attending Unavailable Odilia Mackenzie Referring Unavailable Kun, Dr. Jun Patel Primary Care MD BRITNEY Garza Attending Unavailable MD BRITNEY YU Referring Unavailable Odilia Mackenzie Attending Unavailable Kun, Dr. Jun Patel Primary Care Jacobo Osborn, Dr. Jerez Attending Unavailable Kun, Dr. Jun Patel Primary Care Jacobo Osborn, Dr. Jerez Attending Unavailable Kun, Dr. Jun Patel Primary Care Unaruthy ailRitchie Orozco Admitting Unavail able CAROLEE GONZALEZ Primary Care Unavailable Giselle, Ritchie Clark Attending Unavail able CAROLEE GONZALEZ Primary Care Unavailable Ritchie Desai Attending Unavail able Ritchie Desai Admitting Unavail able Rodney Victor Unavailable Mapus, Tondra Unavailable MD Jun Perez Primary Care Provider MapJESSA salazar Attending Provider [phone] MD Tj Solis Attending Provider [phone] Kun JARA, Jun Patel Primary Care Provider BRITNEY YU Attending Unavailable JUN PEREZ Primary Care Unavaila ble BRITNEY YU Attending Unavailable BRITNEY YU Referring Unavailable JUN PEREZ Primary Care Unavailstephen Perez MD, Jun Patel Primary Care Provider Unavailable MD Jun Perez Primary Care Provider [phone] JESSA Parham Attending Provider [phone] MD Tj Solis Attending Provider [phone] MD Rodney Victor Attending Provider MD Britney Yu Attending Provider Jose Yu Unavailable Jun Perez Primary Care Unavailable Britney Yu Admitting Unavailable Britney Yu Attending Unavailable Britney Yu Admitting Unavailable Britney Yu Attending Unavailable Jun Perez Primary Care Unavailable Mayo, Tj Admitting Unavailable Mayo, Tj Attending Unavailable Jun Perez Primary Care Unavailable Jun Perez Primary Care Unavailable Mapus, Tondra K Admitting Unavailable Map, Tondra K Attending Unavailable Jun Perez Primary Care Unavailable Rodney Victor Admitting Unavailable Rodney Victor Attending Unavailable Mayo, Tj Attending Unavailable Jun Perez Primary Care Unavailable Mayo, Tj Admitting Unavailable MD Jun Perez Primary Care Provider JESSA Parham Attending Provider [phone] Allergies Allergy Classification Reported Allergen(s) Allergy Type Date of Onset Reaction(s) Facility (20 sources) Contrast media Propensity to adverse reactions Unknown [facility] [employer] Other (8 sources) Contrast media Allergy to substance (finding) Shortness of breath [facility] 250 DO Work Phone: (6 sources) Angiotensin Converting Enzyme (Elisa) Inhibitors; Translations: [ELISA Inhibitors] Allergy to drug (finding) [facility] 250 DO Work Phone: (1 source) Contrast media; Translations: [Contrast Dye] Propensity to adverse reactions to drug (disorder) [facility] (6 sources) Gadolinium-Cont aining Contrast Medi; Translations: [Gadolinium-Con taining Contrast Medi] Allergy to substance 1 Anaphylaxis [facility] (10 sources) Iodinated Contrast Media; Translations: [IODINATED CONTRAST MEDIA] Allergy to substance 1 Shortness of breath [facility] Medications Current Medications Medication Drug Class(es) Dates Sig (Normalized) Sig (Original) 0.25 MG, 0.5 MG Dose 3 ML semaglutide 0.68 MG/ML Pen Injector [Ozempic] (3 sources) Start: 09-17-2023 inject 0.5 mg by subcutaneous injection every week Ozempic (0.25 or 0.5 MG/DOSE) 2 MG/3ML 0.5mg Subcutaneous once weekly Sep, Active aspirin 81 mg delayed release oral [...] 2023 12:00am take 1 capsule by mo [facility] every twelve hours Vitamin D3 50 MCG (2000 UT) 1 capsule Or ally BID Active take 1 tablet by mouth once lex y cholecalciferol (Vitamin D3) 50 MCG (2000 UT) tablet Take 1 tablet (50 mcg) by mouth once daily. 0 Active empagliflozin 25 mg oral tablet (17 sources) Sodium-Glucose Cotransporter 2 Inhibitor Start: 10-21-2023 [...] Aug, Active take 0.5 tablet by m outh once daily empagliflozin (Jardiance) 25 mg Take 0.5 tablets (12.5 mg) by mouth once daily. 0 Active erythromycin 0.005 mg/mg ophthalmic ointment (2 sources) Macrolide, Macrolide Antimicrobial Start: 05-25-2022 Erythromycin 5 MG/GM 1 application lower lid right eye three times a day for 7 days May, Active ferrous sulfate 325 mg oral tablet (13 sources) Start: 10-21-2023 Ferrous Sulfat e (Iron) [...] 0 Active FreeStyle Carmelita 3 Sensor - (4 sources) Start: 12-22-2023 FreeStyle Libr e 3 Sensor - as directed SQ changed every 14 days for 14 days Dec, Active Start: 09-17-2023 FreeStyle Libr e 3 Sensor [...] days Active take 1 capsule by mo uth three times daily gabapentin (Neurontin) 100 mg capsule Ta ke 1 capsule (100 mg) by mouth 3 times a day. 0 Active glipiZIDE 5 mg oral tablet (20 sources) Sulfonylurea take 1 tablet by tanvi th twice daily 30 minutes before breakfast glipiZIDE 5 MG 1 tablet 30 minutes before breakfast Orally twice a day Active End: 09-28-2023 take 1 tablet by mouth once daily glipiZIDE XL (Glucotrol XL) 5 mg 24 hr tablet Take 1 tablet (5 mg) by mouth once daily. Do not crush, chew, or split. 0 09/28/2023 Discontinued (Therapy completed) take 1 tablet by tanvi th once daily 30 minutes before breakfast glipiZIDE [...] for 90 days Apr, Active losartan potassium 50 mg oral tablet (10 sources) Angiotensin 2 Receptor Michelle Start: 12-30-2023 take 1 tablet by mouth once daily Losartan Active 50 MG PO Daily December 30, 2023 12:00am FreeTextSi tablet Orally Once a day; Note: Source Status: StartStop Lisinopril; Refills: 1; Qty: 90 Tablet; Provider: Mylar Mesha Start: 09-01-2023 End: 09-28-2023 take 1 tablet by mouth every twenty-four hours Losartan Potassium 25 MG 1 tablet Orally Once a day for 90 days Aug, Active take 1 tablet by tanvi th every twenty-four hours Cozaar 50 MG 1 tablet Orally Once a day for 90 days Stop Lisinopril Active methylPREDNISolone 4 mg oral tablet (2 sources) Corticosteroid Start: 02-17-2023 methylPREDNISolone 4 MG as directed Orally for 6 days Feb, Active Multivitamin preparation (3 sources) Multivitamin Act fabien sacubitril 97 mg / valsartan 103 mg oral tablet (14 sources) Angiotensin 2 Receptor Michelle Start: 10-15-2023 End: 10-14-2024 take 0.5 tablet by mouth twice daily Sacubitril-Valsartan (Entresto) 97-103 mg tablet Active 0.5 TAB PO Twice daily October 21, 2023 12:00am Start: 09-28-2023 End: 10-15-2023 take 1 tablet by mouth twice daily sacubitriL-valsartan (Entresto) 24-26 mg tablet Indications: Hypertensive heart and CKD, ESRD on dialysis ([facility]) , CHF (congestive heart failure), NYHA class II, acute on chronic, combined ([facility]) , Primary hypertension Take 1 tablet by [...] tablet Orally Twice a day Not-Taking/PRN Saw [place] 1000 MG (18 sources) take 1000 mg by mout h twice daily Saw [place] 1000 MG as directed Orally BID Active Saw [place] 450 MG (6 sources) take 450 mg by mouth three times daily Saw [place] 450 MG as directed Orally three times a day Active Saw [place] (4 sources) Start: 10-21-2023 take 450 mg by mouth three times daily at mealtime Saw [place] Active 450 MG PO Three times daily October 21, 2023 12:00am give with food (meal/snack) SAW PALMETTO ORAL (2 sources) SAW PALMETTO ORA L Take by mouth once daily. 0 Active Vitamin C 1000 MG (4 sources) take 1 tablet by tanvi th once daily Vitamin C 1000 MG 1 tablet Orally Once a day Active Vitamin D3 50 MCG (1999) (3 sources) take 1 tablet by tanvi th once daily Vitamin D3 50 MCG (1999) 1 tablet Orally Once a day Active Completed/Discontinued Medications Medication Drug Class(es) Dates Sig (Normalized) Sig (Original) amoxicillin 875 mg / clavulanate 125 mg oral tablet (9 sources) Penicillin-class Antibacterial Start: 11-19-2023 take 1 tablet by mouth every twelve hours Amoxicillin-Pot Clavulanate 875-125 MG 1 tablet Orally every 12 hrs for 10 day(s) Nov, Not-Taking/PRN Start: 12-02-2022 take 1 tablet by tanvi th every twelve hours Amoxicillin-Pot Clavulanate 875-125 MG 1 tablet Orally every 12 hrs for 10 day(s) Nov, Active benzonatate 100 mg oral capsule (8 sources) Non-narcotic Antitussive Start: 10-31-2023 take 1 capsule by mouth three times daily as needed Tessalon Perles 100 MG 1 capsule as needed Orally Three times a day for 7 days Oct, Not-Taking/PRN Start: 02-17-2023 take 1 capsule by mo uth every eight hours Benzonatate 200 MG 1 [...] day Active predniSONE 20 mg oral tablet (7 sources) Start: 10-31-2023 take 1 tablet by mouth every twelve hours prednisone 20 MG 1 tablet Orally BID for 5 Oct, Not-Taking/PRN Start: 09-08-2022 take 1 tablet by tanvi th every twelve hours predniSONE 20 MG 1 tablet Orally 2 times a day for 5 day(s) Aug, Active Saw [place] 1000 MG Oral Capsule (8 sources) Saw [place] 100 0 MG Oral Capsule TAKE DIRECTED. Quantity: 0 Refills: 0 Ordered: 26-Dec-2022 DO Active triamcinolone acetonide 40 mg/ml injectable suspension (20 sources) Corticosteroid Start: 04-30-2022 Kenalog-40 Apr, 20 mg Start: 04-30-2022 Kenalog-40 Apr, 40 mg Start: 07-29-2021 Kenalog -40 mg Jul, 40 mg Problems Active Problems Problem Classification Problem Date Documented Date Episodic/Chronic Administrative/social admission (2 sources) Dietary counseling and surveillance Episodic Chronic kidney disease (20 sources) Chronic kidney disease stage 2; Translations: [Chronic kidney disease, stage 2 (mild)] Onset: 3 Chronic Chronic kidney disease (14 sources) Chronic kidney disease; Translations: [Chronic kidney disease, stage III (moderate)] Onset: 3 Chronic obstructive pulmonary disease and bronchiectasis (1 [...] failure] Onset: 3 Deficiency and other anemia (14 sources) Anemia of renal disease; Translations: [Anemia in chronic kidney disease] Chronic Deficiency and other anemia (1 source) Anemia in chronic kidney disease Chronic Deficiency and other anemia (11 sources) Iron deficiency anemia; Translations: [Iron deficiency anemia, unspecified] Episodic Deficiency and other anemia (1 source) Anemia, unspecified; Translations: [Anemia, unspecified] Onset: 3 Episodic Diabetes mellitus with complications (20 sources) Diabetic peripheral neuropathy; Translations: [Type 2 diabetes mellitus with diabetic polyneuropathy] Onset: 3 Chronic Diabetes mellitus without complication (18 sources) Type 2 diabetes mellitus without complication; [...] hypertension] Onset: 3 Chronic Genitourinary congenital anomalies (20 sources) Renal agenesis and dysgenesis; 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, unilateral] Onset: 3 Chronic Hypertension with complications and secondary hypertension (20 [...] medications] Onset: 3 09-28-2023 Episodic Other aftercare (11 sources) Long-term current use of insulin; 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] Episodic Other aftercare (4 sources) Other custodial (current) drug therapy; Translations: [Other intermodal customer service (current) drug therapy] Onset: 3 Episodic Other bone disease and musculoskeletal deformities (1 source) Disorder of bone, unspecified; Translations: [Disorder of bone, unspecified] Onset: 3 Episodic Other infections; including parasitic [...] Chronic Other nutritional; endocrine; and metabolic disorders (20 sources) Obese class II; Translations: [Body mass [...] disorders (1 source) Body mass index (BMI) 36.0-36.9, adult Chronic Other nutritional; endocrine; and metabolic [...] skin and subcutaneous tissue, unspecified Episodic Other upper respiratory infections (1 source) [...] Onset: 3 09-25-2023 Chronic Residual codes; unclassified (5 sources) Transient alteration of awareness; Translations: [Transient [...] Classification Problem Date Documented Da te Episodic/Chronic Calculus of urinary tract (20 sources) Kidney stone; Translations: [Calculus of kidney] Onset: 02-17-2023 Episodic Genitourinary symptoms and ill-defined conditions (4 sources) Proteinuria, unspecified; Translations: [PROTEINURIA UNSPECIFIED] Onset: 02-17-2023 Episodic Inflammation; infection of eye (except that caused by tuberculosis or sexually transmitteddisease) (1 source) Hordeolum externum right lower eyelid Onset: 05-25-2022 Resolved: 05-25-2022 Episodic Other connective tissue disease (1 source) Pain in left hand Onset: 04-30-2022 Resolved: 04-30-2022 Episodic Other diseases of kidney and ureters (2 sources) Cyst of kidney, acquired; Translations: [Cyst of kidney, acquired] Onset: 09-17-2023 Episodic Other skin disorders (1 source) Change in skin lesion; Translations: [Anemia in chronic kidney disease] Onset: 09-17-2023 Episodic Unclassified (8 sources) Never smoked tobacco; Translations: [Never a smoker] Unclassified (1 source) Chronic cough R05.3 Unclassified (2 sources) Onset: 09-28-2023 Resolved: 10-15-2023 09-28-2023 Viral infection (1 source) COVID-19 Results Test Name Value Interpretation Reference Range Facility A1C HEMOGLOBINon 12-22-2023 HbA1c (Bld) [Mass fraction] 7.7 % [facility] [employer] Other Glucose - FINGER STICKon Glucose [Mass/Vol] 137 mg/dL [facility] [employer] Other HbA1c (Bld) [Mass fraction]o n 12-22-2023 A1C HEMOGLOBIN [facility] [employer] Other Basic Metabolic Panelon 12-2 Anion gap [Moles/Vol] 14.0 mmol/L Normal 6.0-15.0 [facility] Comment on above: Performed By: #### B MP #### [facility] [address] Calcium [Mass/Vol] 9.1 mg/dL Normal 8.6-10.3 [facility] Comment on above: Result Comment: PERF ORMED BY: [place] [address] PATHOLOGIST SUMO WRESTLER TRAN RANDOLPH M.D. Performed By: #### B MP #### [facility] [address] [place] [address] [place] Chloride [Moles/Vol] 104 mmol/L Normal 98-107 [facility] Comment on above: Performed By: #### B MP #### [facility] [address] [place] [id number] [place] CO2 [Moles/Vol] 22.5 mmol/L Normal 21.0-31.[address] [facility] Comment on above: Performed By: #### B MP #### [facility] [address] [place] [address] [place] Creatinine [Mass/Vol] 1.66 mg/dL High 0.70-1.30 [facility] Comment on above: Performed By: #### B MP #### [facility] [address] [place] [address] [place] GFR/1.73 sq M.predicted MDRD (S/P/Bld) [Vol rate/Area] 43.529 mL/min/{1.73_m2} Normal [facility] Comment on above: Performed By: #### B MP #### [place] [address] [place] Glucose [Mass/Vol] 354 mg/dL High 70-100 [facility] Comment on above: Result Comment: [facility] Glucose Reference Range is dependent on time and content of last meal. Glucose of more than 200 mg/dL in a nonstressed, ambulatory subject supports the diagnosis of Diabetes Mellitus. ADA recommended reference range Performed By: #### B MP #### [place] [address] [place] Potassium [Moles/Vol] 4.5 mmol/L Normal 3.5-5.1 [facility] Comment on above: Performed By: #### B MP #### [place] [address] [place] Sodium [Moles/Vol] 136 mmol/L Normal 136-145 [facility] Comment on above: Performed By: #### B MP #### [place] [address] [place] Urea nitrogen [Mass/Vol] 43 mg/dL High 7-25 [facility] Comment on above: Performed By: #### B MP #### [place] [address] [place] Calcium [Mass/volume] in Ser um or PlasmaOrdered By: Britney Yu on 11-05-2023 Calcium [Mass/Vol] 9.1 mg/dL 8.6-10.3 [facility] Carbon dioxide, total [Moles /volume] in Serum or PlasmaOrdered By: Britney Yu on 11-05-2023 CO2 [Moles/Vol] 22.5 mmol/L 21.0-31.[address] [facility] Chloride [Moles/volume] in S niya or PlasmaOrdered By: Britney Yu on 11-05-2023 Chloride [Moles/Vol] 104 mmol/L 98-107 [facility] Creatinine [Mass/volume] in Serum or PlasmaOrdered By: Brintey Yu on 11-05-2023 Creatinine [Mass/Vol] 1.66 mg/dL 0.70-1.30 [facility] Glucose [Mass/volume] in Ser um or PlasmaOrdered By: Britney Yu on 11-05-2023 Glucose [Mass/Vol] 354 mg/dL 70-100 [facility] Comment on above: ADA recommended refe rence rangeRandom Glucose Reference Range is dependent on time and content of last meal. Glucose of more than 200 mg/dL in a nonstressed, ambulatory subject supports the diagnosis of Diabetes Mellitus. No Panel InformationOrdered By: Britney Yu on 11-05-2023 Estimated GFR (CKD-EPI) 43.529 mL/Min [facility] Creatinine Clearance (Chem N/A [facility] Potassium [Moles/volume] in Serum or PlasmaOrdered By: Britney Yu on 11-05-2023 Potassium [Moles/Vol] 4.5 mmol/L 3.5-5.1 [facility] Serum or plasma anion gap de terminationOrdered By: Britney Yu on 11-05-2023 Anion gap [Moles/Vol] 14.0 mmol/L 6.0-15.0 [facility] Sodium [Moles/volume] in Ser um or PlasmaOrdered By: Britney Yu on 11-05-2023 Sodium [Moles/Vol] 136 mmol/L 136-145 [facility] Urea nitrogen [Mass/volume] in Serum or PlasmaOrdered By: Britney Yu on 11-05-2023 Urea nitrogen [Mass/Vol] 43 mg/dL 7-25 [facility] Basic Metabolic Panelon 10-16 Anion gap [Moles/Vol] 13.1 mmol/L Normal 6.0-15.0 [facility] Comment on above: Performed By: #### B MP #### [facility] [address] Calcium [Mass/Vol] 9.5 mg/dL Normal 8.6-10.3 [facility] Comment on above: Result Comment: PERF ORMED BY: [place] [address] PATHOLOGIST SUMO WRESTLER TRAN RANDOLPH M.D. Performed By: #### B MP #### [facility] [address] [place] [address] [place] Chloride [Moles/Vol] 109 mmol/L High 98-107 [facility] Comment on above: Performed By: #### B MP #### [facility] [address] [place] [address] [place] CO2 [Moles/Vol] 25.0 mmol/L Normal 21.0-31.[address] [facility] Comment on above: Performed By: #### B MP #### [facility] [address] [place] [address] [place] Creatinine [Mass/Vol] 1.59 mg/dL High 0.70-1.30 [facility] Comment on above: Performed By: #### B MP #### [facility] [address] [place] [address] [place] GFR/1.73 sq M.predicted MDRD (S/P/Bld) [Vol rate/Area] 45.838 mL/min/{1.73_m2} Normal [facility] Comment on above: Performed By: #### B MP #### [facility] [address] [place] [address] [place] Glucose [Mass/Vol] 206 mg/dL High 70-100 [facility] Comment on above: Result Comment: [place] Glucose Reference Range is dependent on time and content of last meal. Glucose of more than 200 mg/dL in a nonstressed, ambulatory subject supports the diagnosis of Diabetes Mellitus. ADA recommended reference range Performed By: #### B MP #### [facility] [address] [place] [address] [facility] Potassium [Moles/Vol] 5.1 mmol/L Normal 3.5-5.1 [facility] Comment on above: Performed By: #### B MP #### [facility] [address] Sodium [Moles/Vol] 142 mmol/L Normal 136-145 [facility] Comment on above: Performed By: #### B MP #### [facility] [address] [place] [address] [place] Urea nitrogen [Mass/Vol] 28 mg/dL High 7-25 [facility] Comment on above: Performed By: #### B MP #### [facility] [address] [place] [id number] [place] Calcium [Mass/volume] in Ser um or PlasmaOrdered By: Britney Yu on 10-26-2023 Calcium [Mass/Vol] 9.5 mg/dL 8.6-10.3 [facility] Carbon dioxide, total [Moles /volume] in Serum or PlasmaOrdered By: Britney Yu on 10-26-2023 CO2 [Moles/Vol] 25.0 mmol/L 21.0-31.[address] [facility] Chloride [Moles/volume] in S niya or PlasmaOrdered By: Britney Yu on 10-26-2023 Chloride [Moles/Vol] 109 mmol/L 98-107 [facility] Creatinine [Mass/volume] in Serum or PlasmaOrdered By: Britney Yu on 10-26-2023 Creatinine [Mass/Vol] 1.59 mg/dL 0.70-1.30 [facility] Glucose [Mass/volume] in Ser um or PlasmaOrdered By: Britney Yu on 12-11-2023 Glucose [Mass/Vol] 206 mg/dL 70-100 [facility] Comment on above: ADA recommended refe rence rangeRandom Glucose Reference Range is dependent on time and content of last meal. Glucose of more than 200 mg/dL in a nonstressed, ambulatory subject supports the diagnosis of Diabetes Mellitus. No Panel InformationOrdered By: Britney Yu on 10-26-2023 Estimated GFR (CKD-EPI) 45.838 mL/Min [facility] Creatinine Clearance (Chem N/A [facility] Potassium [Moles/volume] in Serum or PlasmaOrdered By: Britney Yu on 10-26-2023 Potassium [Moles/Vol] 5.1 mmol/L 3.5-5.1 [facility] Serum or plasma anion gap de terminationOrdered By: Britney Yu on 10-26-2023 Anion gap [Moles/Vol] 13.1 mmol/L 6.0-15.0 [facility] Sodium [Moles/volume] in Ser um or PlasmaOrdered By: Britney Yu on 10-26-2023 Sodium [Moles/Vol] 142 mmol/L 136-145 [facility] Urea nitrogen [Mass/volume] in Serum or PlasmaOrdered By: Britney Yu on 10-26-2023 Urea nitrogen [Mass/Vol] 28 mg/dL 7-25 [facility] Glucose Glucometer (BldC) [M ass/Vol]Ordered By: Rodney Victor on 10-21-2023 Glucose [Mass/Vol] 155 mg/dL [facility] Comment on above: Random Glucose Refer ence Range is dependent on time and content of last meal. Glucose of more than 200 mg/dL in a nonstressed, ambulatory subject supports the diagnosis of Diabetes Mellitus. Glucose Poct Glucometerson 1 12-22-2022 Glucose [Mass/Vol] 155 mg/dL Normal [facility] Comment on above: Result Comment: [place] Glucose Reference Range is dependent on time and content of last meal. Glucose of more than 200 mg/dL in a nonstressed, ambulatory subject supports the diagnosis of Diabetes Mellitus. PERFORMED BY: [facility] [address] PATHOLOGIST SUMO WRESTLER TRAN RANDOLPH M.D. Performed By: #### G ESTRELLITA #### Point of Care testing , Gerhard 10-21-2023 L Specimen: [id number] Received: 10/21/23 Status: DONTAE Rangel Num: [id number] Spec Type: Surgical Subm Dr: Rodney Victor MD Tissues: A Colon Biopsy (CECAL POLYP) B Colon Biopsy (TRANSV POLYP) Procedures: Martínez RIBERA/Obed L4/2 Age/ Patient Sex Location Account Attending Physician Td Giraldo/Homero [id number] Rodney Victor MD SPEC NUM: [id number] RECD: 10/21/23 STATUS: DONTAE RANGEL NUM: [id number] EBONI: 10/21/23- [facility] DR: Rodney Victor MD ENTERED: 10/21/[address] [facility] [address]: SPEC TYPE: Surgical DEPT: S ORDERED: HE/4, Gross/Micro [...] date of and transverse polyp is one capone tissue measuring 0.3 cm. Entirely submitted in one cassette labeled B1. Specimen: [id number] Received: 10/21/23 Status: DONTAE Rangel Num: [id number] Spec Type: Surgical Subm Dr: Rodney Victor MD Tissues: A Colon Biopsy (CECAL POLYP) B Colon Biopsy (TRANSV POLYP) Procedures: HE/4, Gross/Micro L4/2 Patient: Td Giraldo [id number] (Continued) Specimen: [id number] Received: 10/21/23 (Continued) Signed (signature on file) Beto Torres MD 10/23/23 1144 Specimen: [id number] Received: 10/21/23 Status: DONTAE Stanforddipti Num: [id number] Spec Type: Surgical Subm Dr: Rodney Victor MD Tissues: A Colon Biopsy (CECAL POLYP) B Colon Biopsy (TRANSV POLYP) Procedures: Martínez RIBERA/Obed L4/2 Patient: Td Giraldo [id number] (Continued) Specimen: [id number] Received: 10/21/23 (Continued) Microscopic Description A. Two H E slides reviewed. The microscopic examination confirms the diagnosis. B. Two H E slides reviewed. The microscopic examination confirms the diagnosis. CPT Codes 09399i3 Specimen: [id number] Received: 10/21/23 Status: DONTAE Rashaun Num: [id number] Spec Type: Surgical Subm Dr: Rodney Victor MD Tissues: A Colon Biopsy (CECAL POLYP) B Colon Biopsy (TRANSV POLYP) Procedures: LINDA/Erick, Gross/Micro L4/2 Patient: Td Giraldo [id number] (Continued) Signed (signature on file) Beto Torres MD 10/23/23 1144 [facility] Glucose - FINGER STICKon Glucose [Mass/Vol] 215 mg/dL [employer] Other US renal BIon 09-17-2023 US renal BI [facility] [place] [address] Ultrasound Report Signed Patient: Td Giraldo MR#: [id number] : 1950 Acct:[id number] Age/Sex: 72 / M ADM Date: 09/17/23 Loc: Room: Type: [facility] Attending Dr: Tj Solis MD Ordering Provider: [...] Hahn Jr., D.O.09/17/2023 3:32 PM Dictation Location: [facility]14 Tech: Edie Spike Transcribed By: PWS 09/17/231531 Dictated By: Tobias Hahn Jr, DO 09/17/231531 Signed By: 09/17/231531 [facility] Tobacco Screening.on 023 Fall risk assessment a) No falls within the last year -[facility] 250 DO Work Phone: Tobacco use status CPHS b) No M P-[facility]-[place] 250 DO Work Phone: Office Visit (Cardiology)on [...] a smoker Tobacco Use Screening; Status:Complete; Done: 14May2023 Unlinked Stop: Aspirin EC 81 MG TBEC Patient Instructions Please bring all medicines, vitamins, [...] Patient [place] no [place] receiving care from [place]: Transferred care to [facility] with new patient assessment by Dr. Osborn December 2022. Patient presents to the office [...] January, there has been further prolongation of MA interval and mild elongation of QRS duration. [...] a diabe (more content not included)... Normal [place] Tobacco Screening.on 023 Tobacco use status [facility] b) No M P-[place] [address] DO Work Phone: [facility] MUGA SCAN INJECTIONon [facility] MUGA SCAN INJECTION Patient Name: ADRIEL GIRALDO STUDY: MUGA Performing facility: [facility], [address] [place] [address], [address], [address] Provider: Odilia Mackenzie RN, INFORMATION TECHNOLOGY SPECIALIST PCP: Dr. Sam Perez Supervising provider: Jemima Gastelum MD INDICATION: Cardiomyopathy HISTORY: Gender: M; Age: 72 y/o ; Height: 0 cm; Weight: 131.499492 kg. High Cholesterol; HTN; Denies smoking. COMPARISON: Previous nuclear testing completed [id number] MPI EF=31% at [facility]. Previous echo testing completed [id number] EF= 25-30% at [facility]. ACCESSION NUMBER(S): [id number]; [id number] ORDERING CLINICIAN: ODILIA MACKENZIE TECHNIQUE: The patient received an IV injection of 3 ml of stannous pyrophosphate (PYP) using the in-vivo method of labeling red blood cells. After 15 minutes the patient received another IV injection of 26.1 mCi of Technetium 99m pertechnetate. Planar images of the left ventricle were obtained in the NATHAN 45, Lt Lateral and anterior projections. FINDINGS: The right ventricle was normal. The left ventricle was mildly dilated in size. Regional wall motion was global. Global resting LVEF was abnormal- at 27%. IMPRESSION: Normal resting right ventricular function. Abnormalresting left ventricular function. Left ventricular ejection fraction is 27%. No previous study available for comparison Electronically signed by: JEMIMA GASTELUM MD Normal [facility] No Panel Informationon 04-27 [facility] Work Phone: IMMUNOFIXATION (EMILY), URINEo n 04-15-2023 EMILY Interpretation:U Comment Normal [facility] Comment on above: Result Comment: No m onoclonality detected. Performed By: #### I MUNFXU #### [facility] [address] [place] [address] Dr. Santos Mchugh PROTEIN ELECTROPHERESIS URIN E RANDOMon 04-15-2023 Albumin, U 66.6 % Normal [facility] Comment on above: Performed By: #### U PTE #### [facility] [address] [place] [address] Dr. Santso Mchugh Alpha-1 Globulin U 4.9 % Normal [facility] Comment on above: Performed By: #### U PTE #### [facility] [address] [place] [address] [address] Santos Mchugh Alpha-2 Glubulin U 7.5 % Normal [facility] Comment on above: Performed By: #### U PTE #### [facility] [address] [place] [address] Dr. Santos Mchugh Beta Globulin, U 12.9 % Normal [facility] Comment on above: Performed By: #### U PTE #### [facility] [address] [place] [address] Dr. Santos Mchugh Gamma Globulin U 8.1 % Normal [facility] Comment on above: Performed By: #### U PTE #### [facility] [address] [place] [address] Dr. Santos Mchugh M-Tavo, % Not Observed Normal Not Observed [facility] Comment on above: Performed By: #### U PTE #### [facility] [address] [place] [address] Dr. Santos Mchugh PDF . Normal [facility] Comment on above: Performed By: #### U PTE #### [facility] [address] [place] [address] [address] Santos Mchugh Please note: Comment Normal [facility] Comment on above: Result Comment: Prot ein electrophoresis scan will follow via computer, mail, or saddle and side wire stitcher delivery. Performed By: #### U PTE #### [facility] [address] [place] [address] Dr. Santos Mchugh Protein (U) [Mass/Vol] 64.1 mg/dL Normal Not Estab. Th e [facility] Comment on above: Performed By: #### U PTE #### [facility] [address] [place] [address] Dr. Santos Mchugh FREE LIGHT CHAINS PLUS RATIO on 04-14-2023 Free Morehouse Lt Chains,S 49.2 mg/L Critically high 3.3-19.4 [facility] Comment on above: Performed By: #### F REELIT #### [facility] [address] [place] [address] Dr. Santos Mchugh Free Lambda Lt Chains,S 19.3 mg/L Normal 5.7-26.3 [facility] Comment on above: Performed By: #### F REELIT #### [facility] [address] [place] [address] Dr. Santos Mchugh Morehouse/Lambda Ratio, S 2.55 Critically high 0.26-1.65 [facility] Comment on above: Performed By: #### F REELIT #### [facility] [address] [place] [address] Dr. Santos Mchugh IMMUNOFIXATION (EMILY), SERUMo n 04-14-2023 IMMUNOFIXATION RESULT Comment Normal [facility] Comment on above: Result Comment: No m onoclonality detected. Performed By: #### U AMIC #### [facility] [address] [place] [address] Dr. Santos Mchugh Immunoglobulin A, Qn, Serum 186 mg/dL Normal 61-437 [facility] Comment on above: Performed By: #### U AMIC #### [facility] [address] [place] [address] [address] Santos Mchugh Immunoglobulin G, Qn, Serum 854 mg/dL Normal 603-1613 [facility] Comment on above: Performed By: #### U AMIC #### [facility] [address] [place] [address] [address] Santos Mchugh Immunoglobulin M, Qn, Serum 62 mg/dL Normal 15-143 [facility] Comment on above: Performed By: #### U AMIC #### [facility] [address] [place] [address] [address] Santos Mchugh PROTEIN ELECTROPHERESISon Albumin [Mass/Vol] 3.5 g/dL Normal 2.9-4.4 [facility] Comment on above: Performed By: #### P RTELEC #### [facility] [address] [place] [address] Dr. Santos Mchugh Albumin/Globulin [Mass ratio] 1.1 {ratio} Normal 0.7-1.7 [facility] Comment on above: Performed By: #### P RTELEC #### [facility] [address] [address] [address] Santos Mchugh Ytoit-0-Ggjmhznp 0.2 g/dL Normal 0.0-0.4 [facility] Comment on above: Performed By: #### P RTELEC #### [facility] [address] [place] [address] Dr. Santos Mchugh Jqijy-2-Ioxdoyzz 0.9 g/dL Normal 0.4-1.0 [facility] Comment on above: Performed By: #### P RTELEC #### [facility] [address] [address] [address] Santos Mchugh Beta Globulin 1.2 g/dL Normal 0.7-1.3 [facility] Comment on above: Performed By: #### P RTELEC #### [facility] [address] [place] [address] Dr. Santos Mchugh Gamma Globulin 0.8 g/dL Normal 0.4-1.8 [facility] Comment on above: Performed By: #### P RTELEC #### [facility] [address] [address] [address] Santos Mchugh Globulin (S) [Mass/Vol] 3.1 g/dL Normal 2.2-3.9 [facility] Comment on above: Performed By: #### P RTELEC #### [facility] [address] [address] [address] Santos Mchugh M-Tavo Comment: Normal Not Observed [facility] Comment on above: Result Comment: SPE shows asymmetrical beta. Performed By: #### P RTELEC #### [facility] [address] [address] [address] Santos Mchugh PDF . Normal [facility] Comment on above: Performed By: #### P RTELEC #### [facility] [address] [address] [address] Santos Mchugh Please note: Comment Normal [facility] Comment on above: Result Comment: Prot ein electrophoresis scan will follow via computer, mail, or saddle and side wire stitcher delivery. Performed By: #### P RTELEC #### [facility] [address] [address] [address] Santos Mchugh Protein [Mass/Vol] 6.6 g/dL Normal 6.0-8.5 [facility] Comment on above: Performed By: #### P RTELEC #### [facility] [address] [address] [address] Santos Mchugh PTH INTACTon 04-11-2023 PTH, Intact 52 pg/mL Normal 15-65 [facility] Comment on above: Performed By: #### P THINT #### [facility] [address] [address] [address] Santos Mchugh HEMOGRAM AND PLATELon 2022 Hematocrit (Bld) [Volume fraction] 41.9 % Critically low 42.0-54.0 [facility] Comment on above: Performed By: #### U AMIC #### [facility] [address] [address] [address] Santos Mchugh Hemoglobin (Bld) [Mass/Vol] 13.3 g/dL Critically low 14.0-18.0 [facility] Comment on above: Performed By: #### U AMIC #### [facility] [address] [place] [address] Dr. Santos Mchugh MCH (RBC) [Entitic mass] 26.3 pg Normal 25.9-34.0 [facility] Comment on above: Performed By: #### U AMIC #### [facility] [address] [place] [address] Dr. Santos Mchugh MCHC (RBC) [Mass/Vol] 31.7 g/dL Normal 29.9-35.2 [facility] Comment on above: Performed By: #### U AMIC #### [facility] [address] [place] [address] Dr. Santos Mchugh MCV (RBC) [Entitic vol] 82.8 fL Normal 80.0-94.0 [facility] Comment on above: Performed By: #### U AMIC #### [facility] [address] [place] [address] Dr. Santos Mchugh PLT 167 103/ul Normal 150-450 [facility] Comment on above: Performed By: #### U AMIC #### [facility] [address] [place] [address] Dr. Santos Mchugh RBC 5.06 106/ul Normal 4.70-6.10 [facility] Comment on above: Performed By: #### U AMIC #### [facility] [address] [place] [address] Dr. Santos Mchugh WBC 5.2 103/ul Normal 4.0-11.0 [facility] Comment on above: Performed By: #### U AMIC #### [facility] [address] [place] [address] Dr. Santos Mchugh Office Visit (Cardiology)on 04-10-2023 [...] [facility] years. [facility] [place] [facility] Needs [facility] management Status: Hold For [...] Complaint 'here to discuss testing results' ADRIEL GIRALDO is being seen for cardiomyopathy. Patient presents to the office ambulatory with steady gait, is accompanied by . Last evaluated in clinic January 2023. At that time, he was requesting cardiac risk stratification prior to orthopedic procedure and outpatient perfusion study showed no evidence of ischemia with dilated LVEF 31%. I reviewed prior [place] cardiology note dated August 25, 2022. Patient [...] Patient is no longer receiving care from [place] clinic: Transferred care to [facility] with new patient assessment by Dr. Osborn December 2022. Patient presents to the office [...] reports that usually calibrated yearly by the [place] clinic, will no longer be seen in [...] side eff (more content not included)... Normal [place] RENAL FUNCTION PANELon 04-10 Albumin [Mass/Vol] 3.6 g/dL Normal 3.4-5.0 [facility] Comment on above: Performed By: #### U KAJAL, RENAL #### [facility] [address] [place] [address] Dr. Santos Mchugh Calcium [Mass/Vol] 8.9 mg/dL Normal 8.5-10.1 [facility] Comment on above: Performed By: #### U KAJAL, RENAL #### [facility] [address] [place] [address] Dr. Santos Mchugh Chloride [Moles/Vol] 103 mmol/L Normal 98-107 [facility] Comment on above: Performed By: #### U KAJAL, RENAL #### [facility] [address] [place] [address] Dr. Santos Mchugh CO2 [Moles/Vol] 28.4 mmol/L Normal 21.0-32.0 [facility] Comment on above: Performed By: #### U KAJAL, RENAL #### [facility] [address] [place] [address] Dr. Santos Mchugh Creatinine [Mass/Vol] 1.48 mg/dL Critically high 0.70-1.30 [facility] Comment on above: Performed By: #### U KAJAL, RENAL #### [facility] [address] [place] [address] Dr. Santos Mchugh EGFR-AF SERBIAN 57 mL/min/1.73m2 Critically low >=60 [facility] Comment on above: Performed By: #### U KAJAL, RENAL #### [facility] [address] [place] [address] Dr. Santos Mchugh EGFR-NON AF SERBIAN 47 mL/min/1.73m2 Critically low >=60 [facility] Comment on above: Performed By: #### U KAJAL, RENAL #### [facility] [address] [place] [address] Dr. Santos Mchugh Glucose [Mass/Vol] 122 mg/dL Critically high 74-[address] [facility] Comment on above: Performed By: #### U KAJAL, RENAL #### [facility] [address] [place] [address] Dr. Santos Mchugh Phosphate [Mass/Vol] 3.9 mg/dL Normal 2.6-4.7 [facility] Comment on above: Performed By: #### U KAJAL, RENAL #### [facility] [address] [address] [address] Santos Mchugh Potassium [Moles/Vol] 4.5 mmol/L Normal 3.5-5.1 [facility] Comment on above: Performed By: #### U KAJAL, RENAL #### [facility] [address] [place] [address] [address] Santos Mchugh Sodium [Moles/Vol] 140 mmol/L Normal 136-145 [facility] Comment on above: Performed By: #### U KAJAL, RENAL #### [facility] [address] [place] [address] Dr. Santos Mchugh Urea nitrogen [Mass/Vol] 23.0 mg/dL Critically high 7.0-18.0 [facility] Comment on above: Performed By: #### U KAJAL, RENAL #### [facility] [address] [place] [address] Dr. Santos Mchugh Tobacco Screening.on 023 Fall risk assessment a) No falls within the last year [facility] 250 DO Work Phone: Tobacco use status [facility] b) No [facility] Work Phone: UA RANDOM W/MICROSCOPICon BACTERIA NONE SEEN Normal NONE SEEN [facility] Comment on above: Performed By: #### U AMIC #### [facility] [address] [place] [address] Dr. Santos Mchugh Bilirubin Ql (U) Negative Normal NEGATIVE [facility] Comment on above: Performed By: #### U AMIC #### [facility] [address] [place] [address] Dr. Santos Mchugh CAST NONE SEEN Normal NONE SEEN [facility] Comment on above: Performed By: #### U AMIC #### [facility] [address] [address] [address] Santos Mchugh Clarity (U) CLEAR Normal CLEAR [facility] Comment on above: Performed By: #### U AMIC #### [facility] [address] [address] [address] Santos Mchugh Color (U) LT. YELLOW Normal YELLOW [facility] Comment on above: Performed By: #### U AMIC #### [facility] [address] [place] [address] Dr. Santos Mchugh Crystals LM Nom (Urine sed) NONE SEEN Normal NONE SEEN [facility] Comment on above: Performed By: #### U AMIC #### [facility] [address] [address] [address] Santos Mchugh Epithelial cells LM Ql (Urine sed) NONE SEEN Normal NONE SEEN /RARE [facility] Comment on above: Performed By: #### U AMIC #### [facility] [address] [place] [address] Dr. Santos Mchugh Glucose Ql (U) Negative Normal NEGATIVE [facility] Comment on above: Performed By: #### U AMIC #### [facility] [address] [place] [address] Dr. Santos Mchugh Hemoglobin Ql (U) Negative Normal NEGATIVE [facility] Comment on above: Performed By: #### U AMIC #### [facility] [address] [place] [address] Dr. Santos Mchugh Ketones Ql (U) Negative Normal NEGATIVE [facility] Comment on above: Performed By: #### U AMIC #### [facility] [address] [address] [address] Santos Mchugh LEUKOCYTES Negative Normal NEGATIVE [facility] Comment on above: Performed By: #### U AMIC #### [facility] [address] [address] [address] Santos Mchugh MUCOUS NONE SEEN Normal NONE SEEN [facility] Comment on above: Performed By: #### U AMIC #### [facility] [address] [place] [address] Dr. Santos Mchugh Nitrite Ql (U) Negative Normal NEGATIVE [facility] Comment on above: Performed By: #### U AMIC #### [facility] [address] [place] [address] Dr. Santos Mchugh pH (U) 6.0 [pH] Normal 5-9 [facility] Comment on above: Performed By: #### U AMIC #### [facility] [address] [place] [address] Dr. Santos Mchugh RBC 0-2 Normal 0-2 [facility] Comment on above: Performed By: #### U AMIC #### [facility] [address] [place] [address] Dr. Santos Mchugh SPEC GRAVITY 1.015 Normal 1.005-<=1.02 5 [facility] Comment on above: Performed By: #### U AMIC #### [facility] [address] [place] [address] Dr. Santos Mchugh UA PROTEIN 100 mg/dl Abnormal NEGATIVE/ TRACE [facility] Comment on above: Performed By: #### U AMIC #### [facility] [address] [place] [address] Dr. Santos Mchugh Urobilinogen Qn (U) 0.2 {Dolores'U}/dL Normal 0.2 - 1. 0 [facility] Comment on above: Performed By: #### U AMIC #### [facility] [address] [place] [address] Dr. Santos Mchugh WBC NONE SEEN Normal NONE SEEN [facility] Comment on above: Performed By: #### U AMIC #### [facility] [address] [place] [address] Dr. Santos Mchugh URIC ACID SERUMon 04-10-2023 Urate [Mass/Vol] 7.0 mg/dL Normal 3.5-7.2 [facility] Comment on above: Performed By: #### U KAJAL, RENAL #### [facility] [address] [place] [address] Dr. Santos Mchugh URINE T PROTEIN CREAT RATIOo n 04-10-2023 Protein (U) [Mass/Vol] 68.1 mg/dL Critically high <=12.0 [facility] Comment on above: Performed By: #### U RTPCR #### [facility] [address] [address] [address] Santos Mchugh UR PROT CREAT RAT 0.97 Normal [facility] Comment on above: Performed By: #### U RTPCR #### [facility] [address] [place] [address] Dr. Santos Mchugh URINE CREAT 70.53 mg/dL Normal 20.00-300.00 [facility] Comment on above: Performed By: #### U RTPCR #### [facility] [address] [place] [address] Dr. Santos Mchugh VITAMIN D 25 OHon 04-10-2023 VIT D 25-OH 41.0 ng/mL Normal [facility] Comment on above: Performed By: #### V ITAD #### [facility] [address] [place] [address] Dr. Santos Mchugh VIT D RANGES SEE BELOW Normal [facility] Comment on above: Result Comment: <20 ng/mL Vit D deficient 20 - <30 ng/mL Vit D insufficient 30 - 100 ng/mL Vit D sufficient >100 ng/mL Potential Toxicity Performed By: #### V ITAD #### [facility] [address] [place] [address] Dr. Santos Mchugh [facility] CARDIAC STRESS/REST INJE CTIONon 03-31-2023 [facility] CARDIAC STRESS/REST INJECTION Patient Name: ADRIEL GIRALDO STUDY: MYOCARDIAL PERFUSION STRESS TEST WITH LEXISCAN Performing facility: [facility], [address] [place] [address], [address], [place] [id number] [facility] Provider: Lashell Osborn MD PCP: Dr. Sam Perez Supervising provider: Jemima Gastelum MD INDICATION: Abnormal EKG; Pre-operative risk assessment for Right knee scheduled at [facility] on TBD. HISTORY: Gender: M; Age: 72 y/o ; Height: 0 cm; Weight: 131.558201 kg. Abnormal EKG; High Cholesterol; Diabetes; HTN; Denies smoking. COMPARISON: No comparison. ACCESSION NUMBER(S): [id number]; [id number]; [id number] ORDERING CLINICIAN: LASHELL OSBORN TECHNIQUE: ONE DAY protocol. Stress injection: Date:03-31-23, [...] available for comparison. Electronically signed by: JEMIMA GASTELUM MD Normal [facility] No Panel Informationon 03-31 FINAL REPORT Interpreted by: JEMIMA GASTELUM MD 04/01/23 16:28 Patient Name: ADRIEL GIRALDO STUDY: MYOCARDIAL PERFUSION STRESS TEST WITH LEXISCAN Performing facility: [facility], [address] [facility] Normal [facility] 250 DO Work Phone: US renal BIon 02-17-2023 US renal BI [facility] Main [address] [address] Ultrasound Report Signed Patient: Td Giraldo MR#: [id number] : 1950 Acct:[id number] Age/Sex: 72 / M ADM Date: 02/17/23 Loc: Room: Type: [facility] Attending Dr: Tj Solis MD Ordering Provider: [...] BLADDER. Impression dictated by: Tobias Hahn Jr., ShanelleOJudie02/17/2023 3:27 PM Dictation Location: [place] [address] Tech: Concha Yancy Transcribed By: MOE 02/17/23 152 Dictated By: Tobias Hahn Jr, DO 02/17/23 1524 Signed By: 02/17/23 152 [facility] Office Visit (Cardiology)on 01-23-2023 Follow-up visit Diagnoses/Problems [...] with Odilia [place] NP Chief Complaint ADRIEL GIRALDO is being seen for POC for Giselle Rt Knee. History of Present Illness 72 yo male here for pre-operative cardiac clearance prior to TKA of R knee. Patient has no complaints today including chest pain, VALENZUELA, presyncope/syncope. He is unable to complete > 4 METS due to knee pain. His ECG with incomplete LBBB. Has not had an ischemic evaluation in a few years. Initial visit: [facility]. Has a reported hx of CHF 10 [...] TabletTAKE 1.5 TABLET 3 times daily Saw [place] 1000 MG Oral CapsuleTAKE DIRECTED. Vitamin D3 [...] Signs Recorded: 23Jan2023 09:16AM Heart Rate63, Apical Tsnktvno957, LUE, Sitting Tiwlsebng72, LUE, Sitting Height6 ft 2 in Npazzu313 lb BMI Dpcokhekhy93.75 kg/m2 BSA Calculated2.56 Tobacco Useb) No PHQ-2 [...] Will c (more content not included)... Normal [place] Tobacco Screening.on 023 Adult depression screening assessment No [facility] Charleen Caicedo DO Work Phone: Fall risk assessment a) No falls within the last year [facility] Charleen Caicedo DO Work Phone: Tobacco use status CPHS b) No [facility] Charleen Caicedo DO Work Phone: MRI Knee w/o Righton [...] by Abhinav Muller on 01/07/2023 1009 Normal [facility] Cost Estimating Clerk Office Visit (Cardiology)on 12-26-2022 Follow-up visit Diagnoses/Problems Assessed Cardiomyopathy (425.4) (I42.9) CHF (NYHA class II, ACC/AHA stage C) (428.0) (I50.9) Hyperlipidemia (272.4) (E78.5) Primary hypertension (401.9) (I10) Class 2 obesity with body mass index (BMI) of 37.0 to 37.9 in adult (278.00,V85.37) (E66.9,Z68.37) Obstructive sleep apnea, adult (327.23) (G47.33) Never a smoker Orders Cardiomyopathy IO EKG Electrocardiogram- 12 Lead; Status:Complete; Done: [id number] Cardiomyopathy, Primary hypertension Renew: Carvedilol 12.5 MG [...] For - Scheduling,Retrospec tive Authorization Requested for: [id number] SocHx: Never a smoker Tobacco Use Screening; Status:Complete; Done: [id number] Patient Instructions Please bring all medicines, vitamins, and herbal supplements with you when you come to the office. Prescriptions will not be filled unless you are compliant with your follow up appointments or have a follow up appointment scheduled as per instruction of your physician. Refills should be requested at the time of your visit. Follow up in 6 months Chief Complaint ADRIEL GIRALDO is being seen for a consultation for CHF- [facility] [place] [facility]. History of Present Illness 72 yo [...] TabletTAKE 1.5 TABLET 3 times daily Saw [place] 1000 MG Oral CapsuleTAKE DIRECTED. Vitamin D3 [...] negative for complaint. Vitals Vital Signs Recorded: [id number] 10:52AMRecorded: 15Ysc5481 10:51AM Fmokqjfe926, LUE, Ejlndth687, RUE, Sitting Yygsvykwl25, LUE, Xitrfpc80, RUE, Sitting Heart Rate61, Apical Height6 ft 2 in Txatyr866 lb BMI Iyiryfazmw17.75 kg/m2 BSA Calculated2.56 Tobacco Useb) No PHQ-2 [...] Reported hx of CHF - Will get [place] records - Patient states EF has recovered - Symptomatically doing very well with no complaints 2. HTN - Well-controlled - Continue current therap (more content not included)... Normal [place] Tobacco Screening.on 023 Adult depression screening assessment No [facility] 250 DO Work Phone: Fall risk assessment a) No falls within the last year [facility] Charleen Caicedo DO Work Phone: Tobacco use status CPHS b) No M [facility] Charleen 250 DO Work Phone: Quick Fluon 09-08-2022 FLUAV Ab CF (S) [Titer] Negative N [employer] Other FLUBV Ab CF (S) [Titer] Negative N [employer] Other SARS-CoV-2 (COVID-19) RNA NA A+probe Ql (Resp)on 09-08-2022 SARS-CoV-2 (COVID-19) RNA HECTOR+probe Ql (Unsp spec) Positive [employer] Other Auth for Release of Medical Recordson 11-15-2020 Auth for Release of Medical Records [id number] #1.00CD:127 [facility] Formson 09-11-2020 Forms [id number] #1.00CD:127 [facility] Physician Referralon 020 Physician Referral [id number]# 1.00CD:127 [facility] Ambulatory Clinical Summaryo n 09-07-2020 Ambulatory Clinical Summary {[id number]}CD:[id number] [facility] Patient Educationon 09-07-20 20 Patient Education [...] Document Reviewed: 07/07/2008 ExitCare? Patient Information ?2013 Infratel. Erectile Dysfunction Erectile dysfunction (ED) is the [...] Document Reviewed: 02/22/2012 ExitCare? Patient Information ?2013 Infratel. [facility] Urology Office/Clinic Noteon 09-07-2020 Urology Office/Clinic Note [...] get a full erection on his own. noah use pde5s due to nitro meds. reviewed PANEL MONITOR papers. Reviewed UA. There have been no [...] if there is any issues at arise. Saw arthuro was discussed briefly due to pt asking [...] that he [place], and states that the levels are normal. SHANELLE was done today and was negative for any nodules. I have reviewed the previous health record information and history for this patient from Dr. Silverio Follow-up With When Contact Information Kevin SILVERIO MD Only if needed [facility] [address], [place] [id number]- [phone] Additional Instructions: Patient Education Benign Prostatic Hyperplasia Erectile Dysfunction I, Lashell Kimbrough, personally scribed for Dr. Silverio on 09/07/2020 11:16:07. . Documentation recorded by the scribe, Lashell Kimbrough, accurately reflects the services(s) I performed and decisions made by me. Authenticated by Dr. Silverio on 09/07/2020 11:19:52. Problem List/Past Medical History [...] Dipstick: 2+ (100 mg/dl) (09/07/20 10:27:00) Specific [place] Urine Dipstick: 1.025 (09/07/20 10:27:00) Urine Appearance Urine Dipstick: Clear (09/07/20 10:27:00) Urine Color Urine Dipstick: Yellow (09/07/20 10:27:00) Urobilinogen Urine Dipstick: Normal 0.2-1 EU/dl (09/07/20 10:27:00) pH Urine Dipstick: 5.5 (09/07/20 10:27:00) Normal [facility] Comment on above: Result Comment: Elec tronically Signed By: Kevin SILVERIO MD\.br\Date and Time Signed: 09/07/20 11:19 EDT\.br\Electronically Co-Signed By: Lashell Kimbrough MA\.br\Date and Time Co-Signed: 09/07/20 11:16 EDT Vital Signs Date Time Vital Sign Value Performing Clinician Facility 12-31-2023 11:36-0500 Body height 185.42 cm MD Jun Perez Work Phone: [facility] 12-31-2023 11:36-0500 Body mass index (BMI) [Ratio] 36.4 kg/m2 MD Jun Perez Work Phone: [facility] 12-31-2023 11:36-0500 Body weight 125.24 kg MD Jun Perez Work Phone: [facility] 12-31-2023 11:36-0500 Diastolic blood pressure 70 mm[Hg] MD Jun Perez Work Phone: [facility] 12-31-2023 11:36-0500 Heart rate 60 /min MD Jun Perez Work Phone: [facility] 12-31-2023 11:36-0500 Systolic blood pressure 131 mm[Hg] MD Jun Perez Work Phone: [facility] 12-22-2023 10:00-0500 Body height 185.42 cm Tondra Mapus Other [employer] Other 12-22-2023 10:00-0500 Body mass index (BMI) [Ratio] 36.75 kg/m2 Tondra Mapus Other [employer] Other 12-22-2023 10:00-0500 Body weight 126.37 kg Tondra Mapus Other [employer] Other 12-22-2023 10:00-0500 Diastolic blood pressure 76 mm[Hg] Tondra Mapus Other [employer] Other 12-22-2023 10:00-0500 Respiratory rate 18 /min Tondra Mapus Other [employer] Other 12-22-2023 10:00-0500 SaO2% (BldA) [Mass fraction] 98 % Tondra Mapus Other [employer] Other 12-22-2023 10:00-0500 Systolic blood pressure 137 mm[Hg] Tondra Mapus Other [employer] Other 12-14-2023 11:20-0500 Body height 185.42 cm Jose Adrianaomia Other [facility] 12-14-2023 11:20-0500 Body mass index (BMI) [Ratio] 36.94 kg/m2 Jose Adrianaomia Other [employer] Other 12-14-2023 11:20-0500 Body weight 127.01 kg Jose Koromia Other [employer] Other 12-14-2023 11:20-0500 Body weight 127 kg MD Jun Perez Work Phone: [facility] 12-14-2023 11:20-0500 Diastolic blood pressure 84 mm[Hg] Jose Koromia Other [facility] 12-14-2023 11:20-0500 Respiratory rate 18 /min Jose Adrianaomia Other [place] Other 12-14-2023 11:20-0500 SaO2% (BldA) [Mass fraction] 98 % Jose Adrianaomia Other [employer] Other 12-14-2023 11:20-0500 Systolic blood pressure 156 mm[Hg] Jose Koromia Other [facility] 11-18-2023 11:20-0500 Body height 185.42 cm Jose Koromia Other [facility] 11-18-2023 11:20-0500 Body mass index (BMI) [Ratio] 36.15 kg/m2 Jose Adrianaomia Other [facility] [employer] Other 11-18-2023 11:20-0500 Body weight 124.29 kg Jose Adrianaomia Other [facility] [employer] Other 11-18-2023 11:20-0500 Body weight 124.28 kg MD Jun Perez Work Phone: [facility] 11-18-2023 11:20-0500 Diastolic blood pressure 70 mm[Hg] Jose Koromia Other [facility] 11-18-2023 11:20-0500 Respiratory rate 18 /min Jose Adrianaomia Other [facility] [employer] Other 11-18-2023 11:20-0500 SaO2% (BldA) [Mass fraction] 96 % Jose Koromia Other [facility] [employer] Other 11-18-2023 11:20-0500 Systolic blood pressure 132 mm[Hg] Jose Koromia Other [facility] 10-31-2023 12:15-0500 Body height 185.42 cm MD Jnu Perez Work Phone: [facility] 10-31-2023 12:15-0500 Body weight 127 kg MD Jun Perez Work Phone: [facility] 10-31-2023 12:15-0500 Diastolic blood pressure 71 mm[Hg] MD Jun Perez Work Phone: [facility] 10-31-2023 12:15-0500 Systolic blood pressure 130 mm[Hg] MD Jun Perez Work Phone: [facility] 10-21-2023 12:17-0500 Diastolic blood pressure 78 mm[Hg] MD Jun Perez Work Phone: [facility] 10-21-2023 12:17-0500 Heart rate 54 /min MD Jun Perez Work Phone: [facility] 10-21-2023 12:17-0500 Respiratory rate 16 /min MD Jun Perez Work Phone: [facility] 10-21-2023 12:17-0500 SaO2% (BldA) [Mass fraction] 98 % MD Jun Perez Work Phone: [facility] 10-21-2023 12:17-0500 Systolic blood pressure 144 mm[Hg] MD Jun Perez Work Phone: [facility] 10-21-2023 10:35-0500 Body height 187.96 cm MD Jun Perez Work Phone: [facility] 10-21-2023 10:35-0500 Body temperature 97.8 [degF] MD Jun Perez Work Phone: [facility] 10-21-2023 10:35-0500 Body weight 121.1 kg MD Jun Perez Work Phone: [facility] 10-15-2023 11:23-0500 Body height 188 cm Britney Yu MD Work Phone: [facility] 10-15-2023 11:23-0500 Body mass index (BMI) [Ratio] 35.31 kg/m2 Britney Yu MD Work Phone: [facility] 10-15-2023 11:23-0500 Body weight 124.74 kg Britney Yu MD Work Phone: [facility] 10-15-2023 11:23-0500 Diastolic blood pressure 82 mm[Hg] Britney Yu MD Work Phone: [facility] 10-15-2023 11:23-0500 Heart rate 64 /min Britney Yu MD Work Phone: [facility] 10-15-2023 11:23-0500 Systolic blood pressure 130 mm[Hg] Britney Yu MD Work Phone: [facility] 09-28-2023 10:32-0500 Body height 188 cm Britney Yu MD Work Phone: [facility] 09-28-2023 10:32-0500 Body mass index (BMI) [Ratio] 36.21 kg/m2 Britney Yu MD Work Phone: [facility] 09-28-2023 10:32-0500 Body weight 127.91 kg Britney Yu MD Work Phone: [facility] 09-28-2023 10:32-0500 Diastolic blood pressure 80 mm[Hg] Britney Yu MD Work Phone: [facility] 09-28-2023 10:32-0500 Heart rate 64 /min Britney Yu MD Work Phone: [facility] 09-28-2023 10:32-0500 Systolic blood pressure 138 mm[Hg] Britney Yu MD Work Phone: [facility] 09-17-2023 09:45-0400 Body height 185.42 cm Duncan Parham Other [employer] Other 09-17-2023 09:45-0400 Body mass index (BMI) [Ratio] 37.33 kg/m2 Tondra Mapus Other [employer] Other 09-17-2023 09:45-0400 Body weight 128.37 kg Tondra Mapus Other [employer] Other 09-17-2023 09:45-0400 Diastolic blood pressure 68 mm[Hg] Tondra Mapus Other [employer] Other 09-17-2023 09:45-0400 Respiratory rate 18 /min Tondra Mapus Other [employer] Other 09-17-2023 09:45-0400 SaO2% (BldA) [Mass fraction] 96 % Tondra Mapus Other [employer] Other 09-17-2023 09:45-0400 Systolic blood pressure 128 mm[Hg] Tondra Mapus Other [employer] Other 06-08-2023 11:25-0400 Body height 187.96 cm Jun Perez Work Phone: [facility] [employer] 250 DO Work Phone: 06-08-2023 11:25-0400 Body mass index (BMI) [Ratio] 36.72 kg/m2 Jun Perez Work Phone: [facility] [employer] 250 DO Work Phone: 06-08-2023 11:25-0400 Body surface area Derived from formula 2.53 m2 Jun Perez Work Phone: [employer] 250 DO Work Phone: 06-08-2023 11:25-0400 Body weight 129.73 kg Jun Perez Work Phone: [facility] 250 DO Work Phone: 06-08-2023 11:25-0400 Diastolic blood pressure 68 mm[Hg] Jun Perez Work Phone: [facility] 250 DO Work Phone: 06-08-2023 11:25-0400 Heart rate 56 /min Jun Perez Work Phone: [facility] 250 DO Work Phone: 06-08-2023 11:25-0400 Systolic blood pressure 136 mm[Hg] Jun Perez Work Phone: [facility] 250 DO Work Phone: 05-14-2023 10:45-0400 Body height 187.96 cm Jun Perez Work Phone: [facility] 250 DO Work Phone: 05-14-2023 10:45-0400 Body mass index (BMI) [Ratio] 36.85 kg/m2 Jun Perez Work Phone: [facility] 250 DO Work Phone: 05-14-2023 10:45-0400 Body surface area Derived from formula 2.53 m2 Jun Perez Work Phone: [facility] 250 DO Work Phone: 05-14-2023 10:45-0400 Body weight 130.18 kg Jun Perez Work Phone: [facility] 250 DO Work Phone: 05-14-2023 10:45-0400 Diastolic blood pressure 80 mm[Hg] Jun Perez Work Phone: [facility] 250 DO Work Phone: 06-29-2023 10:45-0400 Heart rate 56 /min Jun Perez Work Phone: [facility] [employer] 250 DO Work Phone: 05-14-2023 10:45-0400 Systolic blood pressure 128 mm[Hg] Jun Perez Work Phone: [facility] [employer] 250 DO Work Phone: 04-17-2023 09:15-0400 Body height 185.42 cm Jun Perez Other [employer] Other 04-17-2023 09:15-0400 Body mass index (BMI) [Ratio] 38.52 kg/m2 Jun Perez Other [employer] Other 04-17-2023 09:15-0400 Body weight 132.45 kg Jun Perez Other [employer] Other 04-17-2023 09:15-0400 Diastolic blood pressure 77 mm[Hg] Jun Perez Other [employer] Other 04-17-2023 09:15-0400 Systolic blood pressure 146 mm[Hg] Jun Perez Other [employer] Other 04-16-2023 11:40-0400 Body height 185.42 cm Tj Mayo Other [employer] Other 04-16-2023 11:40-0400 Body mass index (BMI) [Ratio] 39.14 kg/m2 Tj Mayo Other [employer] Other 04-16-2023 11:40-0400 Body temperature 97.8 [degF] Tj Mayo Other [employer] Other 04-16-2023 11:40-0400 Body weight 134.58 kg Tj Mayo Other [employer] Other 04-16-2023 11:40-0400 Diastolic blood pressure 80 mm[Hg] Tj Mayo Other [employer] Other 04-16-2023 11:40-0400 Respiratory rate 18 /min Tj Mayo Other [employer] Other 04-16-2023 11:40-0400 SaO2% (BldA) [Mass fraction] 97 % Tj Mayo Other [employer] Other 04-16-2023 11:40-0400 Systolic blood pressure 144 mm[Hg] Tj Mayo Other [employer] Other 04-10-2023 15:44-0400 Body height 187.96 cm Jun Perez Work Phone: [facility] [employer] 250 DO Work Phone: 04-10-2023 15:44-0400 Body mass index (BMI) [Ratio] 25.17 kg/m2 Jun Perez Work Phone: [facility] [employer] 250 DO Work Phone: 04-10-2023 15:44-0400 Body surface area Derived from formula 2.15 m2 Jun Perez Work Phone: [facility] [employer] 250 DO Work Phone: 04-10-2023 15:44-0400 Body weight 88.91 kg Jun Perez Work Phone: [facility] [employer] 250 DO Work Phone: 04-10-2023 15:44-0400 Diastolic blood pressure 72 mm[Hg] Jun Perez Work Phone: [facility] [employer] 250 DO Work Phone: 04-10-2023 15:44-0400 Heart rate 64 /min Jun Perez Work Phone: [facility] [employer] 250 DO Work Phone: 04-10-2023 15:44-0400 Systolic blood pressure 126 mm[Hg] Jun Perez Work Phone: [facility] [employer] 250 DO Work Phone: 02-17-2023 12:15-0400 Body height 185.42 cm Jun Perez Other [employer] Other 02-17-2023 12:15-0400 Body mass index (BMI) [Ratio] 38.39 kg/m2 Jun Perez Other [employer] Other 02-17-2023 12:15-0400 Body temperature 98.6 [degF] Jun Perez Other [employer] Other 02-17-2023 12:15-0400 Body weight 132 kg Jun Perez Other [employer] Other 02-17-2023 12:15-0400 Diastolic blood pressure 82 mm[Hg] Jun Perez Other [employer] Other 02-17-2023 12:15-0400 SaO2% (BldA) [Mass fraction] 97 % Jun Perez Other [employer] Other 02-17-2023 12:15-0400 Systolic blood pressure 122 mm[Hg] Jun Perez Other [employer] Other 03-22-2023 16:40-0400 Body height 185.42 cm Tj Mayo Other [employer] Other 02-04-2023 16:40-0400 Body mass index (BMI) [Ratio] 38.28 kg/m2 Tj Mayo Other [employer] Other 02-04-2023 16:40-0400 Body weight 131.63 kg Tj Mayo Other [employer] Other 02-04-2023 16:40-0400 Diastolic blood pressure 96 mm[Hg] Tj Mayo Other [employer] Other 02-04-2023 16:40-0400 Respiratory rate 18 /min Tj Mayo Other [employer] Other 02-04-2023 16:40-0400 SaO2% (BldA) [Mass fraction] 98 % Tj Mayo Other [employer] Other 02-04-2023 16:40-0400 Systolic blood pressure 164 mm[Hg] Tj Mayo Other [employer] Other 01-23-2023 09:16-0500 Body height 187.96 cm Jun Perez Work Phone: [facility] [employer] 250 DO Work Phone: 01-23-2023 09:16-0500 Body mass index (BMI) [Ratio] 37.75 kg/m2 Jun Perez Work Phone: [facility] [employer] 250 DO Work Phone: 01-23-2023 09:16-0500 Body surface area Derived from formula 2.56 m2 Jun Perez Work Phone: [facility] 250 DO Work Phone: 01-23-2023 09:16-0500 Body weight 133.36 kg Jun Perez Work Phone: [facility] 250 DO Work Phone: 01-23-2023 09:16-0500 Diastolic blood pressure 82 mm[Hg] Jun Perez Work Phone: [facility] 250 DO Work Phone: 01-23-2023 09:16-0500 Heart rate 63 /min Jun Perez Work Phone: [facility] 250 DO Work Phone: 01-23-2023 09:16-0500 Systolic blood pressure 136 mm[Hg] Jun Perez Work Phone: [facility] 250 DO Work Phone: 12-26-2022 10:52-0500 Diastolic blood pressure 80 mm[Hg] Jun Perez Work Phone: [facility] 250 DO Work Phone: 12-26-2022 10:52-0500 Systolic blood pressure 148 mm[Hg] Jun Perez Work Phone: [facility] 250 DO Work Phone: 12-26-2022 10:51-0500 Body height 187.96 cm Jun Perez Work Phone: [facility] 250 DO Work Phone: 12-26-2022 10:51-0500 Body mass index (BMI) [Ratio] 37.75 kg/m2 Jun Perez Work Phone: [facility] 250 DO Work Phone: 12-26-2022 10:51-0500 Body surface area Derived from formula 2.56 m2 Jun Perez Work Phone: [facility] [employer] 250 DO Work Phone: 12-26-2022 10:51-0500 Body weight 133.36 kg Jun Perez Work Phone: [facility] [employer] 250 DO Work Phone: 12-26-2022 10:51-0500 Diastolic blood pressure 80 mm[Hg] Jun Perez Work Phone: [facility] [employer] 250 DO Work Phone: 12-26-2022 10:51-0500 Heart rate 61 /min Jun Perez Work Phone: [facility] [employer] 250 DO Work Phone: 12-26-2022 10:51-0500 Systolic blood pressure 146 mm[Hg] Jun Perez Work Phone: [facility] [employer] 250 DO Work Phone: 12-01-2022 16:00-0500 Body height 185.42 cm Jun Perez Other [employer] Other 12-01-2022 16:00-0500 Body mass index (BMI) [Ratio] 38.92 kg/m2 Jun Perez Other [employer] Other 12-01-2022 16:00-0500 Body weight 133.81 kg Jun Perez Other [employer] Other 12-01-2022 16:00-0500 Diastolic blood pressure 80 mm[Hg] Jun Perez Other [employer] Other 12-01-2022 16:00-0500 SaO2% (BldA) [Mass fraction] 98 % Jun Perez Other [employer] Other 12-01-2022 16:00-0500 Systolic blood pressure 140 mm[Hg] Jun Perez Other [employer] Other 11-20-2022 10:30-0500 Body height 187.96 cm Edie Morse Other [employer] Other 11-20-2022 10:30-0500 Body mass index (BMI) [Ratio] 37.61 kg/m2 Edie Morse Other [employer] Other 11-20-2022 10:30-0500 Body weight 132.9 kg Edie Morse Other [employer] Other 11-20-2022 10:30-0500 Diastolic blood pressure 79 mm[Hg] Edie Morse Other [employer] Other 11-20-2022 10:30-0500 Respiratory rate 20 /min Edie Morse Other [employer] Other 11-20-2022 10:30-0500 SaO2% (BldA) [Mass fraction] 98 % Edie Morse Other [employer] Other 11-20-2022 10:30-0500 Systolic blood pressure 146 mm[Hg] Edie Morse Other [employer] Other 09-08-2022 10:15-0400 Body height 187.96 cm Phyllis Amy Other [employer] Other 09-08-2022 10:15-0400 Body mass index (BMI) [Ratio] 36.59 kg/m2 Phyllis Yoomond Other [employer] Other 09-08-2022 10:15-0400 Body temperature 97.6 [degF] Phyllis Amy Other [employer] Other 09-08-2022 10:15-0400 Body weight 129.28 kg Phyllis Amy Other [employer] Other 09-08-2022 10:15-0400 Diastolic blood pressure 59 mm[Hg] Phyllis Amy Other [employer] Other 09-08-2022 10:15-0400 Respiratory rate 18 /min Phyllis oYomond Other [employer] Other 09-08-2022 10:15-0400 SaO2% (BldA) [Mass fraction] 97 % Phyllis Yoomond Other [employer] Other 09-08-2022 10:15-0400 Systolic blood pressure 112 mm[Hg] Phyllis Amy Other [employer] Other 05-25-2022 13:35-0400 Body height 187.96 cm Phyllis Amy Other [employer] Other 05-25-2022 13:35-0400 Body mass index (BMI) [Ratio] 37.23 kg/m2 Phyllis Amy Other [employer] Other 05-25-2022 13:35-0400 Body temperature 97.4 [degF] Phyllis Amy Other [employer] Other 05-25-2022 13:35-0400 Body weight 131.54 kg Phyllis Reyes Other [employer] Other 05-25-2022 13:35-0400 Diastolic blood pressure 82 mm[Hg] Phyllis Reyes Other [employer] Other 05-25-2022 13:35-0400 Respiratory rate 18 /min Phyllis Reyes Other [employer] Other 05-25-2022 13:35-0400 SaO2% (BldA) [Mass fraction] 96 % Phyllis Reyes Other [employer] Other 05-25-2022 13:35-0400 Systolic blood pressure 142 mm[Hg] Phyllis Reyes Other [employer] Other 04-30-2022 11:00-0400 Body height Mary Bryson Other [employer] Other 04-30-2022 11:00-0400 Body mass index (BMI) [Ratio] 37.23 kg/m2 Mary Bryson Other [employer] Other 04-30-2022 11:00-0400 Body weight 131.54 kg Mary Bryson Other [employer] Other Encounters Encounter Date Encounter Type Care Provider Facility Start: 12-31-2023 End: 12-31-2023 ambulatory MD Jun Perez Work Phone: [facility] Work Phone: Start: 12-31-2023 End: 12-31-2023 Patient encounter procedure MD Jun Perez Work Phone: [facility] Work Phone: Start: 12-22-2023 (DM) Diabetes Duncan Parham [facility] Start: 12-22-2023 End: 12-22-2023 ambulatory Jun Perez Facility:[facility] Start: 12-22-2023 Registered Recurring MD Jun Perez Work Phone: [facility] Work Phone: Start: 12-14-2023 End: 12-14-2023 ambulatory Jose Wrightomia Other [employer] Other Start: 12-14-2023 Office outpatient vi sit 25 minutes Jose Adrianaomia [facility] Start: 12-14-2023 Telephone encounter Jose Yoonia [facility] Start: 12-14-2023 End: 12-14-2023 Patient encounter procedure MD Jun Perez Work Phone: [facility]- Start: 11-20-2023 Patient encounter procedure MD Jun Perez Work Phone: [facility]- Start: 11-19-2023 End: 11-19-2023 ambulatory Jun Perez Other [employer] Other Start: 11-19-2023 Office outpatient vi sit 15 minutes Jun Perez [facility] Start: 11-19-2023 Telephone encounter Tj Solis [facility] Start: 11-18-2023 End: 11-18-2023 ambulatory Jose Adrianaalycia Other [employer] Other Start: 11-18-2023 Office outpatient ne w 45 minutes Jose Adrianaomia [facility] Start: 11-18-2023 End: 11-18-2023 Patient encounter procedure MD Jun Perez Work Phone: [facility] Work Phone: Start: 11-05-2023 End: 11-05-2023 ambulatory Britney Yu Facility:[facility] Start: 11-05-2023 End: 11-05-2023 ambulatory MD Jun Perez Work Phone: [facility] Work Phone: Start: 11-05-2023 End: 11-05-2023 Patient encounter procedure MD Jun Perez Work Phone: [facility] [place] Work Phone: Start: 11-04-2023 End: 11-04-2023 ambulatory Duncan Parham Other [facility] [employer] Other Start: 11-04-2023 Telephone encounter Duncan Parham [facility] Start: 10-31-2023 End: 10-31-2023 Patient encounter procedure MD Jun Perez Work Phone: [facility] [place] Work Phone: Start: 10-26-2023 End: 10-26-2023 ambulatory Jun Perez Facility:[facility] Start: 10-26-2023 End: 10-26-2023 ambulatory MD Jun Perez Work Phone: [facility] Work Phone: Start: 10-26-2023 End: 10-26-2023 Patient encounter procedure MD Jun Perez Work Phone: [facility] [place] Work Phone: Start: 10-21-2023 End: 10-21-2023 ambulatory Jun Perez Facility:[facility] Start: 10-21-2023 End: 10-21-2023 Admission to same day surgery center MD Jun Perez Work Phone: [facility] Work Phone: Start: 10-21-2023 End: 10-21-2023 ambulatory MD Jnu Perez Work Phone: [facility] Work Phone: Start: 10-15-2023 End: 10-15-2023 ambulatory [facility]ulatory Start: 10-15-2023 End: 10-15-2023 Office outpatient visit 25 minutes Britney Yu MD Work Phone: [facility] Comment on above: CHF (congestive hear t failure), NYHA class II, acute on chronic, combined (CMS/HCC); Primary hypertension; Nonischemic cardiomyopathy (CMS/HCC); Medication course changed; Hypertensive heart and CKD, 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); Mixed hyperlipidemia; Diabetes mellitus with kidney disease (CMS/HCC) Start: 09-28-2023 Telephone encounter Nancy MOSQUEDA [facility] Start: 09-28-2023 End: 09-28-2023 ambulatory [facility] [employer] Other Start: 09-28-2023 End: 09-28-2023 Office outpatient visit 25 minutes Britney Yu MD Work Phone: [facility] Comment on above: Personality disorder ([facility]) (Primary Dx); Obesity, morbid (CMS/HCC); Hypertensive heart and CKD, 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); CHF (congestive heart failure), NYHA class II, acute on chronic, combined ([facility]/HCC); Diabetes mellitus with kidney disease ([facility]/HCC); Mixed hyperlipidemia; Primary hypertension; Medication course changed Start: 09-25-2023 Patient encounter status Luis Yu MD Work Phone: [facility] Work Phone: Start: 09-17-2023 (DM) Diabetes Duncan Parham [facility] Start: 09-17-2023 Telephone encounter Nancy MOSQUEDA Nephrology Start: 09-17-2023 End: 09-17-2023 ambulatory MD Jun Perez Work Phone: [employer] Other Start: 09-17-2023 End: 09-17-2023 Patient encounter procedure MD Jun Perez Work Phone: [facility] [place] Work Phone: Start: 09-17-2023 Registered Recurring MD Jun Perez [facility] Phone: [facility] Work Phone: Start: 09-15-2023 End: 09-15-2023 ambulatory Rodney Victor Other [employer] Other Start: 09-15-2023 Telephone encounter Rodney AMAYA [facility] Start: 08-17-2023 End: 08-17-2023 ambulatory CAROLEE GONZALEZ Facility:[facility] Start: 06-08-2023 Office outpatient vi sit 25 minutes Jun Perez Work Phone: [facility] 250 DO Work Phone: Start: 05-14-2023 Office outpatient vi sit 25 minutes Jun Perez Work Phone: [facility] 250 DO Work Phone: Start: 05-14-[address] Jun Perez Facility: Start: 05-06-2023 End: 05-07-2023 ambulatory Ritchie Eduardo Giselle Facility:[facility] Start: 05-01-2023 End: 05-01-2023 ambulatory Jun Perez Other [employer] Other Start: 05-01-2023 Telephone encounter Jun Perez [facility] Start: 04-27-2023 ambulatory Odilia Mackenzie Facility:[id number] Start: 04-17-2023 End: 04-17-2023 ambulatory Jun Perez Other [employer] [facility] Other Start: 04-17-2023 Office outpatient vi sit 25 minutes Jun Perez [facility] Start: 04-16-2023 End: 04-16-2023 ambulatory Tj Mayo Other [employer] Other Start: 04-16-2023 Office outpatient vi sit 25 minutes Tj Mayo [facility] [place] Start: 04-10-2023 Office outpatient vi sit 25 minutes Jun Perez Work Phone: [facility]-[place] 250 DO Work Phone: Start: 04-10-2023 Patient encounter procedure Jun Perez Work Phone: [facility] 250 DO Work Phone: Start: 04-10-[address] Jun Perez Facility: Start: 04-10-2023 End: 04-11-2023 ambulatory TJ MAYO Facility: Start: 04-01-[address] Lashell Betancourt ty:[id number] Start: 03-31-2023 Encounter for preprocedural cardiovascular examination Dr. Lashell Osborn [facility] Start: 03-31-[address] Lashell Betancourt ty:[id number] Start: 03-31-2023 Encounter for preprocedural cardiovascular examination Dr. Lashell Osborn [facility] Start: 03-09-2023 End: 03-09-2023 ambulatory Tj Mayo Other [employer] Other Start: 03-09-2023 Telephone encounter Tj Mayo [facility] Start: 02-17-2023 End: 02-17-2023 ambulatory Tj Mayo [facility] [employer] Other Start: 02-17-2023 Office outpatient vi sit 15 minutes Jun Perez [facility] Start: 02-06-2023 End: 02-06-2023 ambulatory Tj Mayo Other [employer] Other Start: 02-06-2023 Telephone encounter Tj Mayo [facility] Start: 02-04-2023 End: 02-04-2023 ambulatory Tj Mayo Other [employer] Other Start: 02-04-2023 Office outpatient ne w 45 minutes Tj Mayo [facility] Start: 02-04-2023 Telephone encounter Tj Sur [facility] Start: 01-23-2023 Office outpatient vi sit 25 minutes Jun Perez Work Phone: [facility] 250 DO Work Phone: Start: 01-23-[address] Jun Perez Facility: Start: 12-29-2022 End: 12-29-2022 ambulatory Jun Perez Other [employer] Other Start: 12-29-2022 Telephone encounter Jun Perez [facility] Start: 12-26-2022 Office outpatient ne w 45 minutes [facility] Work Phone: Start: 12-26-[address] Malika Patel Facility: Start: 12-02-2022 End: 12-02-2022 ambulatory Jun Perez Other [employer] Other Start: 12-02-2022 Telephone encounter Jun Perez [facility] Start: 12-01-2022 End: 12-01-2022 ambulatory Jun Perez Other [employer] Other Start: 12-01-2022 Office outpatient ne w 60 minutes Jun Perez [facility] Start: 11-25-2022 End: 11-25-2022 ambulatory Edie Morse Other [employer] Other Start: 11-25-2022 Telephone encounter Edie azar [facility] Start: 11-20-2022 End: 11-20-2022 ambulatory Edie Morse Other [employer] Other Start: 11-20-2022 Office outpatient ne w 30 minutes Edie Morse [facility] Start: 09-08-2022 End: 09-08-2022 ambulatory Phyllis Amy Other [employer] Other Start: 09-08-2022 Office outpatient vi sit 15 minutes Phyllis Amy [facility] Start: 05-25-2022 End: 05-25-2022 ambulatory Phyllis Amy Other [employer] Other Start: 05-25-2022 Office outpatient vi sit 15 minutes Phyllis Amy [facility] Start: 04-30-2022 End: 04-30-2022 ambulatory Mary Calvey Other [employer] Other Start: 04-30-2022 Office outpatient vi sit 25 minutes Mary Calvey [facility] Start: 03-13-2013 End: 03-14-2013 Emergency department patient visit NO REFERRING DR Facility:[facility] Patient encounter status Jun Perez Work Phone: [facility] 250 DO Work Phone: Procedures Date Procedure [...] procedure 03/28/2024 10:45 AM EDT Office Visit [place] [id number] [id number] Britney Yu MD [address] [facility] [address] [place] [address] [facility] Start: 10-29-2023 End: 10-15-2024 Basic metabolic 2000 panel - Serum or Plasma Basic Metabolic Panel Lab Routine CHF (congestive heart failure), NYHA class II, acute on chronic, combined (CMS/HCC) Nonischemic cardiomyopathy (CMS/HCC) Medication course changed Expected: 10/29/2023 (Approximate), Expires: 10/15/2024 [facility] Service Area Work Phone: Comment on above: Expected: 10/29/2023 (Approximate), Expires: 10/15/2024 Start: 10-22-2023 End: 10-15-2024 Basic metabolic 2000 panel - Serum or Plasma Basic Metabolic Panel Lab Routine CHF (congestive heart failure), NYHA class II, acute on chronic, combined (CMS/HCC) Nonischemic cardiomyopathy (CMS/HCC) Medication course changed Expected: 10/22/2023 (Approximate), Expires: 10/15/2024 [facility] Work Phone: Comment on above: Expected: 10/22/2023 (Approximate), Expires: 10/15/2024 Start: 10-21-2023 [facility] Start: 10-15-2023 End: 10-15-2023 Patient encounter procedure 10/15/2023 10:45 AM EST Office Visit [facility] [address] [address] Britney Yu MD [address] [facility] [address] [place] [address] [facility] Start: 10-05-2023 End: 09-28-2024 Basic metabolic 2000 panel - Serum or Plasma Basic Metabolic Panel Lab Routine Hypertensive heart and CKD, 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) CHF (congestive heart failure), NYHA class II, acute on chronic, combined (CMS/HCC) Diabetes mellitus with kidney disease (CMS/HCC) Expected: 10/05/2023 (Approximate), Expires: 09/28/2024 [facility] Service Area Work Phone: Comment on above: Expected: 10/05/2023 (Approximate), Expires: 09/28/2024 Start: 09-28-2023 FUV, Provider: Britney Yu, Status: Pen, Time: 10:15 AM FUV, Provider: Britney Yu, Status: Pen, Time: 10:15 AM -[facility] 250 DO Work Phone: Start: 07-22-2023 FUV, Provider: Odilia Olsen, Status: Pen, Time: 10:00 AM FUV, Provider: Odilia Olsen, Status: Pen, Time: 10:00 AM -[facility] 250 DO Work Phone: Start: 07-17-2023 Influenza vaccination Influenza Vacc ine (#1) [facility] Start: 06-26-2023 FUV, Provider: Lashell Osborn, Status: Pen, Time: 10:30 AM FUV, Provider: Lashell Osborn, Status: Pen, Time: 10:30 AM -[facility] 250 DO Work Phone: Start: 06-22-2023 FUV, Provider: Britney Yu, Status: Pen, Time: 11:00 AM FUV, Provider: Britney Yu, Status: Pen, Time: 11:00 AM -[facility] 250 DO Work Phone: Start: 06-08-2023 FUV, Provider: Britney Yu, Status: Pen, Time: 11:30 AM FUV, Provider: Britney Yu, Status: Pen, Time: 11:30 AM -[facility] 250 DO Work Phone: Start: 05-14-2023 FUV, Provider: Britney Yu, Status: Pen, Time: 11:00 AM FUV, Provider: Britney Yu, Status: Pen, Time: 11:00 AM [facility] Work Phone: Start: 04-27-2023 MUGA, Provider: ANGEL LYLEI NUCLEAR 01,[id number], Status: Pen, Time: 2:30 PM MUGA, Provider: MILAGROS LYLEI NUCLEAR 01,[id number], Status: Pen, Time: 2:30 PM [facility] 250 DO Work Phone: Start: 02-24-2023 REST ONLY, Provider: MILAGROS LYLEI NUCLEAR 01,[id number], Status: Pen, Time: 12:30 PM REST ONLY, Provider: MILAGROS LYLEI NUCLEAR 01,[id number], Status: Pen, Time: 12:30 PM [facility] 250 DO Work Phone: Start: 02-19-2023 STRESSNUC2, Provider : MILAGROS LYLEI NUCLEAR 01,[id number], Status: Pen, Time: 12:30 PM STRESSNUC2, Provider: MILAGROS LYLEI NUCLEAR 01,[id number], Status: Pen, Time: 12:30 PM [facility] Work Phone: Start: 02-21-2022 COVID-19 Vaccine (2 - Pfizer series) COVID-19 Vaccine (2 - Pfizer series) [facility] Start: 2000 Zoster Vaccines (1 of 2) Zoste r Vaccines (1 of 2) [facility] Start: 1972 DTaP/Tdap/Td Vaccine s (1 - Tdap) DTaP/Tdap/Td Vaccines (1 - Tdap) [facility] Start: 1969 Urine screening for protein Diabetes: Urine Protein Screening [facility] Start: 1968 Hepatitis C screening Hepatitis C Sc reening [facility] Start: 1960 Diabetic foot examination Diabetes: Foot Exam [facility] Start: 1960 Glaucoma screening Diabetes: R etinopathy Screening [facility] Start: 1956 Pneumococcal Vaccine : 65+ Years (1 - PCV) Pneumococcal Vaccine: 65+ Years (1 - PCV) [facility] Start: 1950 Creatinine measurement Creatinine Le campos [facility] Start: 1950 Echocardiography Echocardiogram [facility] Start: 1950 Hemoglobin A1c measurement Rosa betes: Hemoglobin A1C [facility] Start: 1950 Lipid panel Lipid Panel [facility] Start: 1950 Medicare Annual Well ness Visit Medicare Annual Wellness Visit (AWV) [facility] Start: 1950 Potassium measurement Potassium Leve l [facility] Start: 1950 Screening for malign ant neoplasm of colon [facility] Patient Education Colon Polypectomy (DC) [facility] Work Phone: Payers Date Payer Category Payer Self-pay [id number] 2022 Medicare HUMANA MEDICARE [employer] GOLD CHOICE [id number] 2022-Present [address] [address] [place] [address] [id number] 1959 Medicare [id number] 1950 Unknown [id number] [id number] 1950 Unknown [id number] 2.16.840.1.352422.3.579.2.356 1950 Unknown [id number] 2.16.840.1.958489.3.579.2.356 1950 Unknown [id number] 2.16.840.1.728803.3.579.2.356 1950 Unknown [id number] 2.16.840.1.072474.3.579.2.356 1950 Unknown [id number] 2.16.840.1.866312.3.579.2.1068 1950 Unknown [id number] 2.16.840.1.190579.3.579.2.1068 1950 Unknown [id number] 2.16.840.1.485462.3.579.2.1068 1950 Unknown [id number] 2.16.840.1.209290.3.579.2.718 1950 Unknown [id number] 2.16.840.1.431272.3.579.2.718 1950 Unknown [id number] 2.16.840.1.225043.3.579.2.1244 1950 Unknown [id number] 2.16.840.1.391318.3.579.2.1244 Medicare [id number] [id number] Medicare [id number] 2. 840.1.896945.19 Medicare Medicare [id number] Unknown [id number] Unknown [id number] 2. [id number] Unknown [employer] G[employer] CHOICE Unknown [id number] 2.16840.1.089448.3.579.2.531 Unknown [id number] 2.16840.1.958511.3.579.2.531 Unknown [id number] 2.16840.1.191058.3.579.2.531 Unknown [id number] 2.16840.1.453984.3.579.2.531 Unknown [id number] 2.16840.1.413502.3.579.2.531 Unknown [id number] 2.840.1.993687.3.579.2.531 Social History Date Type Detail Facility Start: 09-28-2023 End: 10-15-2023 Sex Assigned At [facility] Other Start: 09-28-2023 End: 10-15-2023 No alcohol use No alcohol use [place] [address] DO Work Phone: Start: 04-10-2021 End: 12-14-2023 Tobacco smoking status NHIS Never smoked tobacco (finding) [facility] Start: 1950 Sex Assigned At Male F [facility] Start: 09-25-2023 Tobacco use and exposure Smokeless tobacco non-user [facility] Work Phone: Start: 09-28-2023 End: 10-15-2023 Alcohol intake Lifetime non-drinker (finding) [facility] Work Phone: Start: 1950 Sex Assigned At Not on file [facility] Work Phone: Start: 09-18-2023 End: 10-15-2023 Exposure to SARS-CoV-2 (event) Not sure [facility] Goals Date Patient Goal Desired Activity /State Clinical Notes 12-26-2012 to 12-22-2023 Note Date & Type Note Facility 12-22-2023 Evaluation note Encounter Date Diagnosis Assessment Notes Dec, Dietary counseling and surveillance (ICD-10 - Z71.3) see above Dec, Type 2 diabetes mellitus with diabetic chronic kidney disease (ICD-10 - E11.22) 1. Uncontrolled, a Type 2 diabetes with A1c of 7.7% 2. Blood glucose levels above target. Currently taking jardiance 25mg 1/2 tab daily. Encouraged pt to restart cgm- pt does have one at home, he is agreeable to sending rx to pharmacy today. Handout healthy meal planning given, reviewed with pt today. Reviewed target fasting am/meal to meal glucose [...] diabetes, progressive beta cell , concepts of basal/bolus/cor rective insulin requirements. Basal: The goal is fasting [...] complexity reviewed e. Patient questions addressed 2. Activity/exerci se: Encouraged to start any form of physical [...] hyperglycemia, or diabetes medication issues. 6. Prescriptions: [facility] carmelita 3 cgm sent. 7. Prescriptions will not be filled unless you are compliant with follow up appointments or have a follow appointment scheduled as per ordered by your provider. Refills should be requested at the time of your visit. Dec, HTN (hypertension) (ICD-10 - I10) on arb Dec, Hyperlipidemia (ICD-10 - E78.5) on statin Dec, BMI 36.0-36.9,adult (ICD-10 - Z68.36) Heart healthy diet material was published 12 pound weight loss from last visit, continue with weight loss efforts [employer] Other 01-29-2024 Evaluation note* Encounter Date Diagnosis Assessment Notes Treatment Notes Treatment Clinical Notes Nov, Essential hypertension (ICD-10 - I10) Nov, Chronic HFrEF (heart failure with reduced ejection fraction) (ICD-10 - I50.22) Nov, Stage 3a chronic kidney disease (CKD) (ICD-10 - N18.31) Nov, Type 2 diabetes mellitus with diabetic nephropathy, without long-term current use of insulin (ICD-10 - E11.21) Nov, Other # 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 [facility] with [facility] in the past was negative for obstructive CAD. NYHA 2, ACC B.# HTN# DM - Diabetes is managed at the [facility]. # CKD - BMP 11/05/23 sCr 1.66 BUN 43. 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 # Obesity - Has lost > 30 lbs in the last year which has helped his HTN and BP control.PCP: Dr. Zi Parham ([facility]), Dr. Gracia Perez (in [place]) Nuclear MPI in 2022 at [facility] - EF 31%. No ischemia or infarct.Echo in 2022 at [facility] - EF 25-30%MUGA done 04/27/23 at [facility] - EF 27%. EKG 03/27/21 - NSR 63 bpm, 1st degree AVB, iLBBB. EKG 11/18/23 in clinic - NSR 67 bpm, 1st degree AVB, IVCD, nonspecific T wave abnormalities. - BP elevated here today. But pt says his BP at home is 120/70s. See regimen changes below.- GDMT: Prior notes from Dr. Yu ([facility]) say he didn't tolerate Entresto due to CKD and hyperkalemia. Thus stopped Entresto and avoid Aldactone due to hyperkalemia. Due to cough will stop lisinopril. Start Losartan 50mg qd. Continue Jardiance, Coreg and Hydralazine. - Volume management: Is euvolemic without scheduled diuretics. Continue Jardiance.- Get BMP today to r/o GOLD or worsening CKD after initiating ACEi at the last visit. - Rpt Echo in January (after 3 months GDMT) and if still <35% will refer for ICD. - F/u in 1 month with BMP before that visit. [employer] Other 01-29-2024 Evaluation note* Encounter Date Diagnosis Assessment Notes Treatment Notes Treatment Clinical Notes Nov, Type 2 diabetes mellitus with other diabetic kidney complication, without long-term current use of insulin (ICD-10 - E11.29) Nov, Chronic congestive heart failure, unspecified heart failure type (ICD-10 - I50.9) Nov, CKD (chronic kidney disease) stage 2, GFR 60-89 ml/min (ICD-10 - N18.2) [employer] Other 01-04-2024 Evaluation note* Encounter Date Diagnosis Assessment Notes Treatment Notes Treatment Clinical Notes Nov, Acute non-recurrent maxillary sinusitis (ICD-10 - J01.00) Sinus infections [...] verbalized understanding and agreement with treatment plan. [employer] Other 01-03-2024 Evaluation note* Encounter Date Diagnosis [...] - NYHA 2, ACC B. Had a [facility] with [facility] in the past that was negative. 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 # Obesity - Has lost > 30 lbs in the last year which has helped his HTN and BP control.PCP: Dr. Zi Parham ([facility]), Dr. Gracia Perez (in [place]) Nuclear MPI in 2022 at [facility] - EF 31%.Echo in 2022 at [facility] - EF 25-30%MUGA done 04/27/23 at [facility] - EF 27%. EKG 03/27/21 - NSR 63 bpm, 1st degree AVB, iLBBB. EKG 11/18/23 in clinic - NSR 67 bpm, 1st degree AVB, IVCD, nonspecific T wave abnormalities. -I reviewed his last [address] Britney Yu at [facility].- GDMT: Says that he didn't tolerate Entresto [...] 1 month with BMP before that visit. [employer] Other [facility] History of Present illness Narrative* Britney Yu [...] Problem List Diagnosis Date Noted Nonischemic cardiomyopathy ([facility]) 10/15/2023 Obesity, morbid ([facility]) 09/28/2023 Abnormal EKG 09/25/2023 Cardiomyopathy ([facility]) 09/25/2023 CHF (congestive heart failure), NYHA class II, acute on chronic, combined ([facility]) 09/25/2023 Diabetes mellitus with kidney disease ([facility]) 09/25/2023 First degree atrioventricular block 09/25/2023 Hyperlipidemia [...] months Britney Yu MD documented in this [facility] Work Phone: [phone]) 377-672911-30-2023 Instructions* Patient Instructions* Eric Corcoran MA - [...] Fall Prevention Education Given [facility] Work Phone: [phone]) 219-129511-13-2023 History of Present illness Narrative* Britney Yu [...] Diagnosis Date Noted Abnormal EKG 09/25/2023 Cardiomyopathy ([facility]) 09/25/2023 CHF (congestive heart failure), NYHA class II, acute on chronic, combined ([facility]) 09/25/2023 Diabetes mellitus with kidney disease ([facility]) 09/25/2023 First degree atrioventricular block 09/25/2023 Hyperlipidemia 09/25/2023 Hypertensive heart and CKD, ESRD on dialysis ([facility]) 09/25/2023 Medication course changed 09/25/2023 Obstructive sleep apnea, adult 09/25/2023 Personal history of COVID-19 09/25/2023 Pre-operative cardiovascular examination 09/25/2023 Primary hypertension 09/25/2023 Type 2 diabetes mellitus without complication ([facility]) 09/25/2023 Assessment: Patient does not appear euvolemic Patient has chronic systolic left heart failure functional class II Patient has diabetes without hypoglycemia with kidney disease Test results were reviewed. Recommendations: 1. Continue Entresto if affordable otherwise go back to hydralazine 2. Follow-up as scheduled Follow up : 6 months Britney Yu MD documented in this [facility] Work Phone: 1(516) 428-491111-13-2023 Instructions* Patient Instructions* Davis Riggs MA - [...] time of your visit. documented [facility] Work Phone: 1(550) 818-399711-02-2023 Evaluation note* Encounter Date Diagnosis Assessment Notes Treatment Notes Treatment Clinical Notes Sep, Dietary counseling and surveillance (ICD-10 - Z71.3) see above Sep, Type 2 diabetes mellitus with diabetic chronic kidney disease (ICD-10 - E11.22) 1. Controlled, a Type 2 diabetes with A1c of 6.7% 09/07/23 2. Blood glucose levels according to carmelita 3 cgm download 09/04/23-09/17/23: Avg glucose 148. [...] or diabetes medication issues. 6. Prescriptions: [facility] in [place] - Roelance/carmelita 3 cgm sent 09/17/23. Sample carmelita 3 [...] 30 minutes spent on education with Aleah DAVIS, RN. [employer] Other 06-02-2023 Evaluation note* Encounter Date Diagnosis Assessment Notes Treatment Notes Treatment Clinical Notes Apr, Type 2 diabetes mellitus with hyperglycemia, without long-term current use of insulin (ICD-10 - E11.65) Handwrote referral for diabetes and MNT through [facility]. Discussed switching from glipizide to ozempic. He prefers to wait at this time. Apr, Chronic congestive heart failure, unspecified heart failure type (ICD-10 - I50.9) Advised he complete the MUGA and adequately discuss symptoms with his Engineering Inspection Assistant. He discussed that he does not have chest pain, dyspnea or significant edema. He has researched his EF and echo results. He does not feel that his symptoms are significant enough to proceed w pacer or defibrillator. Followup w Cardiology. Apr, Chronic kidney disease, stage III (moderate) (ICD-10 - N18.30) Reviewed notes and advised he follow Dr. Solis's recommendations. [employer] Other 06-01-2023 Evaluation note* Encounter Date Diagnosis [...] check iron studies B12 and folate level. [employer] Other 04-04-2023 Evaluation note* Encounter Date Diagnosis Assessment Notes Treatment Notes Treatment Clinical Notes Feb, Bronchitis (ICD-10 - J40) Bronchitis suspected due to wheezes, chest tightness, cough and/or impaired air movement. Medication prescribed. Avoid extreme heat and cold as this may exacerbate inflammation of airways. If wheezing, chest tightness and/or SOB occurs, go to ER. [employer] Other 03-22-2023 Evaluation note* Encounter Date Diagnosis Assessment Notes Treatment Notes Treatment Clinical Notes Jan, Chronic kidney disease, stage III (moderate) (ICD-10 - N18.30) Thanks for referring Mr. Giraldo to our office for an evaluation and [...] do a work-up to rule it out. [employer] Other 02-13-2023 Evaluation note* Encounter Date Diagnosis Assessment Notes Treatment Notes Treatment Clinical Notes Dec, Type 2 diabetes mellitus with other diabetic kidney complication, without long-term current use of insulin (ICD-10 - E11.29) Dec, Neuropathy of left lower extremity (ICD-10 - G57.92) [employer] Other 01-16-2023 Evaluation note* Encounter Date Diagnosis [...] Nov, Precancerous skin lesion (ICD-10 - L98.9) [employer] Other 01-05-2023 Evaluation note* Encounter Date Diagnosis [...] understanding and is agreeable to treatment plan. [employer] Other 10-24-2022 Evaluation note* Encounter Date Diagnosis [...] the ER for worsening symptoms or concerns. [employer] Other 07-10-2022 Evaluation note* Encounter Date Diagnosis Assessment Notes Treatment Notes Treatment Clinical Notes May, Hordeolum externum of right lower eyelid (ICD-10 - H00.012) [employer] home care material was printed Use the eye ointment as prescribed. Apply warm compresses to your eye 2-3 times a day. Follow-up with your eye doctor if no improvement in 3 to 4 days. [employer] Other 06-15-2022 Evaluation note* Encounter Date Diagnosis [...] pain of right knee (ICD-10 - M25.561) [employer] Other 09-01-2020 History of Present illness Narrative* [...] Patient is no longer receiving care from [facility] clinic: Transferred care to [facility] with new patient assessment by Dr. Osborn December 2022. * Patient presents to the [...] January, there has been further prolongation of MA interval and mild elongation of QRS duration. [...] 6. Will be a great candidate for [employer], will discuss at next visit [facility] [facility] DO Work Phone: [phone]) 707-398309-01-2020 History of Present illness Narrative* Patient was [...] Patient is no longer receiving care from [place] clinic: Transferred care to [facility] with new patient assessment by Dr. Osborn December 2022. * Patient presents to the office today primarily concerned with recent testing results. * Discussed the different sensitivity/specificity of ejection fraction evaluation between echocardiograms/MUGA/MPI. His MPI results are consistent with April 2021 echo findings. I do not have available documentation to me of EF in 2012. Nonetheless, he is requesting reevaluation with MUGA [...] January, there has been further prolongation of MA interval and mild elongation of QRS duration. [...] 6. Will be a great candidate for [employer] Jardiance, will discuss at next visit -[facility] Cat Amania DO Work Phone: [phone]) [phone] History of Present illness Narrative* 72 yo [...] on his current medications. No complaints today. -[facility] Cat Amania DO Work Phone: [phone]) [phone] History of Present illness Jowuuzgeu87 yo male here to establish care. Has a reported hx of CHF 10 years ago but states his EF has since recovered. He endorses weekly exercise (5x per week) with no issues. State's he very active. No chest pain, palpitations, presyncope/syncope, LE edema, PND, orthopnea. Checks his BP daily and statesits well-controlled on his current medications. No complaints today.[facility] Work Phone: Chief complaint Narrative - ReportedPHIHOWARD GIRALDO is being seen for a consultation for CHF- former [facility] Cat Amania DO Work Phone: Evaluation noteNo InformationNort Kalido Other Evaluation noteNo assessment information available [facility] Work Phone: Evaluation note* Diagnosis Personality disorder (CMS/HCC)- Primary Unspecified personality disorder Obesity, morbid (CMS/HCC) Morbid obesity Hypertensive heart and CKD, 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) CHF (congestive heart failure), NYHA class II, acute on chronic, combined (CMS/HCC) Diabetes mellitus with kidney disease (CMS/HCC) Mixed hyperlipidemia Primary hypertension Unspecified essential hypertension Medication course changed documented in this encounter [facility] Work Phone: Evaluation note* Diagnosis CHF (congestive heart failure), NYHA class II, acute on chronic, combined ([facility]/HCC) Primary hypertension Unspecified essential hypertension Nonischemic cardiomyopathy ([facility]/HCC) Other primary cardiomyopathies Medication course changed Hypertensive heart and CKD, 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) Mixed hyperlipidemia Diabetes mellitus with kidney disease ([facility]/HCC) documented in this encounter [facility] Work Phone: History and physical note Author Rodney Victor [facility] October 21, 2023 11:23am Note Date/Time October 21, 2023 1 1:23am [facility] [address] [place] [address] Gastroenterology H&P Signed Patient: Td Giraldo MR#: [id number] : 1950 Acct:[id number] Age/Sex: 72 / M Adm Date: 3 Loc: Room: Type: [facility] Attending Dr: Rodney Victor MD Copies to: [...] signed by Rodney Victor MD> 10/21/23 1123 [facility] Work Phone: history general Narrative - Reported* Type Description Date Medical History chronic renal failure Medical History hyperkalemia Medical History diabetes mellitus Medical History coronary artery disease Medical History sleep apnea Medical History hypertension Medical History obstructive uropathy Medical History CHF Medical History only has one kidney Medical History hypertension Surgical History left wrist ganglion cyst excisi on, volar [employer]) [facility] [employer] Other Hisojwf general Narrative - Reported* Type Description Date Medical History chronic renal failure Medical History hyperkalemia Medical History diabetes mellitus Medical History coronary artery disease Medical History sleep apnea Medical History hypertension Medical History obstructive uropathy Medical History CHF Medical History only has one kidney Medical History hypertension Surgical History left wrist ganglion cyst excisi on, volar Surgical History b/l cataracts [facility] [employer] Other Hisplkc general Narrative - Reported* Type Description Date Medical History chronic renal failure Medical History hyperkalemia Medical History diabetes mellitus Medical History Congestive heart failure Medical History sleep apnea Medical History hypertension Medical History obstructive uropathy Medical History only has one kidney Surgical History left wrist ganglion cyst excisi on, volar Surgical History b/l cataracts [employer] Other HisSadra Medical general Narrative - Reported* Type Description Date [...] 06/2015 Hospitalization History ABNORMAL LABS/ DIALYSIS 07/2015 [employer] Other Hisrpza general Narrative - Reported* Type Description Date [...] 06/2015 Hospitalization History ABNORMAL LABS/ DIALYSIS 07/2015 [employer] Other Hisbohg general Narrative - Reported* Type Description Date [...] 06/2015 Hospitalization History ABNORMAL LABS/ DIALYSIS 07/2015 [employer] Other Hissfnw general Narrative - Reported* Type Description Date [...] 06/2015 Hospitalization History ABNORMAL LABS/ DIALYSIS 07/2015 [employer] Other History of Present illness Narrative* The [...] medication regimen. He denies medication side effects. [facility] [employer] Work Phone: History of Present illness Narrative* [...] medication regimen. He denies medication side effects. [facility] [employer] Work Phone: History of Present illness Narrative* [...] medication regimen. He denies medication side effects. [facility] Work Phone: Hospital Discharge instructions Additional Instructions [...] NOT operate machinery such as power tools, [employer] [place] [employer] mowers, snow blowers, sewing machines, etc. for [...] problems. -Follow up with PCP. -Office number [phone].[facility] Work Phone: Reason for referral (narrative)* Consultation (Routine) - Authorized Specialty Diagnoses / Procedures Referred By Contac t Referred To Contact Cardiology Diagnoses CHF (congestive heart failure), NYHA class II, acute on chronic, combined (CMS/HCC) Primary hypertension Procedures Follow Up In Cardiology Britney Yu MD [address] [place] [id number] Britney Yu MD [address] [place] [address] Referral ID Status Reason Start Date Expiration Date V isits Requested Visits Authorized [id number] Authorized 09/28/2023 09/27/2024 1 1 [facility] Work Phone: Reezgp for referral (narrative)* Consultation (Routine) - Authorized Specialty Diagnoses / Procedures Referred By Contedmundo t Referred To Contact Cardiology Diagnoses CHF (congestive heart failure), NYHA class II, acute on chronic, combined (CMS/HCC) Primary hypertension Nonischemic cardiomyopathy (CMS/HCC) Procedures Follow Up In Cardiology Britney Yu MD [address] [place] [id number] Britney Yu MD [address] [place] [id number] Referral ID Status Reason Start Date Expiration Date V isits Requested Visits Authorized [id number] Authorized 10/15/2023 10/14/2024 1 1 [facility] Work Phone: Rejomu for visit Narrativenutrition referral discussionNort Kalido Other Summary Purpose Family History Unknown Family [...] Not Specified No pertinent family history Unknown Relationship Condition Age at Onset Recorded Date/T evita Not Specified No pertinent family history Unknown father Unknown Heart disease Unknown Diabetes mellitus Unknown Not Specified Unknown Advance Directives Advance Directive Response Recorded Date/ Time Advance Directives No July 11:15am Advance Directive Response Recorded Date/ Time Advance Directives No July 10:15am Reason for Referral Reason 12/16/22 [place] off ice. Previously saw provider at [facility] ortho Diagnosis 1 Recurrent pain of ri ght knee (M25.561) Referral Organization [facility] [employer]adeo laws Referring Provider First Name Jun Referring Provider Last Name Kun Referring Provider Specialty Family [facility] Referred Organization [facility] Referred Provider Giselle,James Referred Address ,[place], [place],[address] Referred Provider Specialty Orthopedic S urgery Referral Priority Routine Referral Appointment Date 2022-12-16 General Notes Becca Boykin 11:40:22 AM >received today, notes locked, attachments made, referral faxed P2P SamanthaclintonBecca 12/12/2022 09:25:38 AM >faxed first attempt letter LucretiaBecca 12/12/2022 01:42:44 PM >received fax back that pt is scheduled with PANEL MONITOR Becca Gordillo 12/17/2022 08:00:55 AM >faxed first request for consult notes Becca Boykin 2022 12:58:52 PM >faxed second request for notes Becca Boykin 12/26/2022 05:01:54 PM >received notes, sent for review. Reason 12/26/22 [place] office. pt has data on previous echos, etc Diagnosis 1 Left heart failure w ith left ejection fraction greater than 40 percent (I50.1) Referral Organization [facility] [employer] eusebia Referring Provider First Name Jun Referring Provider Last Name Kun Referring Provider Specialty [facility] [employer] Referred Organization [facility] enter Referred Provider Lashell Osborn Referred Address [address] ,[place], [place],[address] Referred Provider Specialty Internal Med icine Referral Priority Routine Referral Appointment Date 2022-12-26 General Notes SamanthaclintonBecca 01:12:21 PM >pt was originally referred by Edie Morse and has an appt with [facility] on 12/26/22 Becca Boykin 12/29/2022 05:08:53 PM >faxed first request for consult notes Becca Boykin 12/30/2022 01:56:43 PM >received notes, sent for review. Closing referral at this time. Reason 02/04/23 Pt has re cent labs. copies will also be scanned in Diagnosis 1 CKD (chronic kidney disease) stage 2, GFR 60-89 ml/min (N18.2) Referral Organization [facility] [employer] eusebia Referring Provider First Name Jun Referring Provider Last Name Kun Referring Provider Specialty [facility] [employer] Referred Organization [facility] Nephrology Referred Provider Tj Solis Referred Address [address] ,[place],[address] Referred Provider Specialty Nephrology Referral Priority Routine Referral Appointment Date 2023-02-04 General Notes Becca Boykin 12:30:23 PM >received today, sent P2P Becca Boykin 12/05/2022 12:53:06 PM >waitng to see if can schedule since pt, said we are not in his network. TE was sent Bceca Boykin 12/05/2022 01:19:03 PM >per availity website no auth is required Reason 12/11/22 [place] office preferred - needs nail care and possible toenail removal Diagnosis 1 Diabetic peripheral neuropathy (E11.42) Referral Organization [facility] [employer] Referring Provider First Name Jun Referring Provider Last Name Kun Referring Provider Specialty [facility] [employer] Referred Organization [facility] Referred Provider JAGDEEP GIBSON Referred Address ,[place],[address] Referred Provider Specialty Podiatry - S urgical Chiropody Referral Priority Routine Referral Appointment Date 2022-12-11 General Notes Becca Boykin 11:23:27 AM >received today, faxed referral Becca Boykin 12/05/2022 01:14:47 PM >patient provided appt date Becca Boykin 12/12/2022 01:27:01 PM >faxed first request for consult notes Becca Boykin 12/15/2022 12:08:55 PM >received notes and sent for review. closing referral at this time. Clinical Notes [id number] Reason 12/10/22 yearly sk in exam Diagnosis 1 Precancerous skin le edith (L98.9) Referral Organization [facility] [employer] Referring Provider First Name Jun Referring Provider Last Name Kun Referring Provider Specialty [facility] [employer] customer [employer] Referred Organization [facility] Referred Provider Tigre Russell Referred Address [address],[place],[address] Referred Provider Specialty Dermatology Referral Priority Routine Referral Appointment Date 2022-12-10 General Notes Becca Boykin 10:49:22 AM >received today, notes locked, attachments made, referral faxed Becca Boykin 12/15/2022 11:00:10 AM >faxed first attempt letter Becca Boykin 12/15/2022 02:09:31 PM >received notes and sent for review Reason CLOSED evaluate Diagnosis 1 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) Referral Organization [facility] Referring Provider First Name Edie Referring Provider Last Name Pattirbacher Referring Provider Specialty Nurse Pract itioner Referred Organization [facility] Nephrology Cli manpreet Vargas Referred Provider Tj Solis Referred Address [address],[place],[address] Referred Provider Specialty Nephrology Referral Priority Routine General Notes Becca Boykin 11:14:39 AM >received today Becca Boykin 11/20/2022 11:15:11 AM >waiting for notes to be locked, and [employer] website is currently down to complete PA. will check back Becca Boykin 11/21/2022 09:08:45 AM >[employer] website is still down. will check back Becca Boykin 11/24/2022 09:17:04 AM >[employer] site still down Bceca Boykin 11/25/2022 08:54:58 AM >site up, and [...] unspecified heart failure type (I50.9) [facility] Referring Provider First Name Edie Referring Provider Last Name Luciaacher Referring Provider Specialty Nurse Pract itioner Referred Organization [facility] enter Referred Provider Hawa Diallo Referred Address [address],[place], [place],[address] Referred Provider Specialty Cardiac Surg niurka Referral Priority Routine Referral Appointment Date 2022-12-26 General Notes Becca Boykin 11:08:29 AM >received today, waiting for notes to be locked, and [employer] website is down for Prior Auth. will check back Becca Boykin 11/21/2022 09:08:07 AM >[employer] website is still down at this time. [...] in right knee ( M25.561) Referral Organization [facility] Referring Provider First Name Edie Referring Provider Last Name Lito Referring Provider Specialty Nurse Pract itione Referred Organization [facility] [place] [facility] Referred Provider Tad Boucher Referred Address [address] [place],[address] Referred Provider Specialty Orthopedic S urgery Referral Priority Routine General Notes Becca Boykin 11:16:24 AM >received today, waiting for notes to be locked, and [employer] website is currently down at the moment. will folllow up Becca Boykin 11/21/2022 09:09:03 AM >[employer] website is still currently down. will check back Becca Boykin 11/24/2022 09:17:20 AM >availity site is still down Becca Boykin 11/25/2022 08:54:58 AM >site up, and no auth is required. attachment made, referral faxed Becca Boykin 12/05/2022 12:53:06 PM >waitng to see if can schedule since pt, said we are not in his network. TE was sent Chief Complaint ADRIEL GIRALDO is being seen for POC for Giselle Rt Knee.* 'here to discuss testing results' * ADRIEL GIRALDO is being seen for cardiomyopathy. * 'here to discuss testing results' * ADRIEL GIRALDO is being seen for cardiomyopathy. * Patient presents to the office ambulatory with steady gait, is accompanied by . * Last evaluated in clinic January 2023. * At that time, he was requesting cardiac risk stratification prior to orthopedic procedure and outpatient perfusion study showed no evidence of ischemia with dilated LVEF 31%. * I reviewed prior [facility] note dated August 25, 2022. * [...] Patient is no longer receiving care from [facility]: Transferred care to [facility] with new patient assessment by Dr. Osborn December 2022. * Patient presents to the [...] reports that usually calibrated yearly by the [facility] clinic,will no longer be seen in the [facility] clinic and referred to the sleep clinic for management. * Otherwise, he will be having an orthopedic knee surgery in the near future. Recent favorable perfusion study, EF 31% currently functional class I stage C without evidence of decompensation. At this time, there are no prohibitive cardiovascular risk to proceed. * 'here to discuss testing results' * ADRIEL GIRALDO is being seen for cardiomyopathy. * Patient presents to the office ambulatory with steady gait, is accompanied by . * Last evaluated in clinic January 2023. * At that time, he was requesting cardiac risk stratification prior to orthopedic procedure and outpatient perfusion study showed no evidence of ischemia with dilated LVEF 31%. * I reviewed prior [facility] note dated August 25, 2022. * [...] Patient is no longer receiving care from [facility]: Transferred care to [facility] with new patient assessment by Dr. Osborn December 2022. * Patient presents to the [...] reports that usually calibrated yearly by the [place] clinic,will no longer be seen in the [...] know if he decided to start entresto 24-26 if he starts entresto then he is [...] iron defiency anemia I50.43 I50.43 I42.8 Z79.899 Chief Complaint iron defiency anemia I50.43 Feels Cold, Achy, Weak, Sinus- Thinks He I50.43 I42.8 Z79.899 Wants To Establish As A New Patient 1 Month Follow Up DM cough congestion Additional Source Comments INFORMATION SOURCE (unrecogn ized section and content) DATE CREATED AUTHOR 05/12/2018 [facility] DATE CREATED AUTHOR AUTHOR'S ORGANIZ ATION 11/16/2020 [facility] DATE CREATED AUTHOR AUTHOR'S ORGANIZ ATION 01/08/2023 [facility] dical Specialist DATE CREATED AUTHOR AUTHOR'S ORGANIZ ATION 04/26/2023 [facility] DATE CREATED AUTHOR AUTHOR'S ORGANIZ ATION 05/15/2023 [facility] DATE CREATED AUTHOR AUTHOR'S ORGANIZ ATION 05/15/2023 [employer] DATE CREATED AUTHOR AUTHOR'S ORGANIZ ATION 05/23/2023 [facility] DATE CREATED AUTHOR AUTHOR'S ORGANIZ ATION 08/21/2023 [facility] DATE CREATED AUTHOR AUTHOR'S ORGANIZ ATION 10/18/2023 [facility] DATE CREATED AUTHOR AUTHOR'S ORGANIZ ATION 2023 [facility] (unrecognized sect ion and content) No Status Records FoundNo Status Records FoundNo Status Records FoundNo Status Records FoundNo Status Records FoundNo Status Records FoundNo Status Records FoundNo Status Records FoundNo Status Records FoundNo Status Records Found REASON FOR VISIT (unrecogniz ed section and content) DM 3 month Follow up, Type 2 DM apt with [employer] 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, BRICK WASHER-C, BC-ADM Reason Comments Follow-up 4 month Reason Comments Follow-up 2w Specialty Diagnoses / Procedures Referred By Contac t Referred To Contact Cardiology Diagnoses CHF (congestive heart failure), NYHA class II, acute on chronic, combined (CMS/HCC) Primary hypertension Procedures Follow Up In Cardiology Britney Yu MD [address] [facility] [address] [place] [address] Britney Yu MD [address] [facility] [address] [place] [address] Referral ID Status Reason Start Date Expiration Date V isits Requested Visits Authorized [id number] Authorized 09/28/2023 09/27/2024 1 1 Care Teams (unrecognized sec tion and content) Team Status: Active Member Role Status Dates Jun Perez MD Primary Care Provider Active Team Status: Inactive Member Role Status Dates Jun Perez MD Primary Care Provider Active Rodney Victor MD Attending Provider Active Team Status: Active Member Role Status Dates Jun Perez MD Primary Care Provider Active Duncan Parham APRN Attending Provider Active Team Status: Inactive Member Role Status Dates Jun Perez MD Primary Care Provider Active Tj Solis MD Attending Provider Active Paediatric Surgeon Relationship Specialty Start Date End Date Jun Perez MD [address] [place] [address] [place] [address] PCP - General 12/26/22 Paediatric Surgeon Relationship Specialty Start Date End Date Jun Perez MD PCP - General 12/26/22 Team Status: Inactive Member Role Status Dates Jun Perez MD Primary Care Provider Active Britney Yu MD Attending Provider Active Team Status: Inactive Member Role Status Dates Jun Perez MD Primary Care Provider Active Start: October 21, 2023 End: October 21, 2023 Rodney Victor MD Attending Provider Active S tart: October 21, 2023 End: October 21, 2023 Team Status: Inactive Member Role Status Dates Jun Perez MD Primary Care Provider Active Start: October 26, 2023 End: October 26, 2023 Britney Yu MD Attending Provider Active Star t: October 26, 2023 End: October 26, 2023 Team Status: Inactive Member Role Status Dates Dilcia Noe APRN Attending Provider Active Start: October 31, 2023 End: October 31, 2023 Team Status: Inactive Member Role Status Dates Jun Perez MD Primary Care Provider Active Start: November 05, 2023 End: November 05, 2023 Britney Yu MD Attending Provider Active Star t: November 05, 2023 End: November 05, 2023 Team Status: Inactive Member Role Status Dates Jose Yu MD Attending Provider Activ e Start: November 18, 2023 End: November 18, 2023 Team Status: Active Member Role Status Dates Provider Conversion Attending Provider Active St art: November 20, 2023 Team Status: Inactive Member Role Status Dates Jose Yu MD Attending Provider Activ e Start: December 14, 2023 End: December 14, 2023 Team Status: Active Member Role Status Dates Jun Perez MD Primary Care Provider Active Start: December 22, 2023 Duncan Parham APRN Attending Provider Active Start: December 22, 2023 Team Status: Inactive Member Role Status Dates Jun Perez MD Primary Care Provide r, Attending Provider Active Start: December 31, 2023 End: December 31, 2023 Goals (unrecognized section and content) Goals may [...] BE BASED ON THE PRIMARY CLINICAL RECORDS. [employer]. provides no warranty or guarantee of the accuracy or completeness of information in this document.
[2024-01-04 12:25] LABS: Hematocrit 46.3 % (42.0-54.0); Hemoglobin 14.1 g/dL (14.0-18.0); Mean Corpuscular HGB Conc 30.5 g/dL (29.9-35.2); Mean Corpuscular Hemoglobin 26.5 pg (25.9-34.0); Platelet Count 106 10^3/uL (150-450); Red Blood Count 5.32 10^6/uL (4.70-6.10); Red Cell Distribution Width 15.2 % (11.0-15.0); White Blood Count 5.4 10^3/uL (4.0-11.0)
[2024-01-04 12:26] LABS: Albumin Level 3.5 g/dL (3.4-5.0); Anion Gap 12.6; BUN Creatinine Ratio 21.2; Calcium 8.7 mg/dL (8.5-10.1); Carbon Dioxide 26.1 mmol/L (21.0-32.0); Chloride 106 mmol/L (98-107); Estimated GFR (African America 57 (>=60); Estimated GFR (Non-African Ame 47 (>=60); Glucose 118 mg/dL (74-106); Magnesium 2.3 mg/dL (1.8-2.4); Phosphorus 4.1 mg/dL (2.6-4.7); Potassium 4.7 mmol/L (3.5-5.1); Sodium 140 mmol/L (136-145); Uric Acid 6.4 mg/dL (3.5-7.2)
[2024-01-04 12:41] LABS: Bilirubin Urine NEGATIVE (NEGATIVE); Blood Urine NEGATIVE (NEGATIVE); Clarity Urine CLEAR (CLEAR); Color Urine LT. YELLOW (YELLOW); Glucose Urine UA >=1000 mg/dL (NEGATIVE); Ketones Urine NEGATIVE (NEGATIVE); Leukocyte Esterase Urine NEGATIVE (NEGATIVE); Nitrite Urine NEGATIVE (NEGATIVE); Protein Urine 30 mg/dL (NEG/TRACE); Specific Gravity Urine 1.025 (1.005-1.025); Urobilinogen Urine 0.2 EU/dL (0.2-1.0); pH Urine 5.5 (5.0-9.0)
[2024-01-04 12:55] LABS: Percent Iron Saturation 27.8 %
[2024-01-04 13:00] LABS: Bacteria Urine NONE SEEN #/HPF (NONE SEEN); Mucus Urine NONE SEEN (NONE SEEN); RBC Urine NONE SEEN #/HPF (0-2); Squamous Epithelial Cell Urine RARE #/LPF (NONE/RARE); WBC Urine NONE SEEN #/HPF (NONE SEEN)
[2024-01-05 13:12] LABS: PTH, Intact 21 pg/mL (15-65)
== END 2024-01-04 11:18 | disposition home or self-care (01) ==
LOC: LAB 11:22
PROVIDERS: PCP Family Medicine; Visit Provider Internal Medicine
DX: N20.0 Calculus of kidney (principal); E11.22 Type 2 diabetes mellitus with diabetic chronic kidney disease; N18.30 Chronic kidney disease, stage 3 unspecified; D50.9 Iron deficiency anemia, unspecified; I12.9 Hypertensive chronic kidney disease with stage 1 through stage 4 chronic kidney disease, or unspecified chronic kidney disease; R80.9 Proteinuria, unspecified; N28.1 Cyst of kidney, acquired; N18.9 Chronic kidney disease, unspecified; D63.1 Anemia in chronic kidney disease
CPT/HCPCS: 36415; 80069; 81001; 82728; 83540; 83550; 83735; 83970; 84550; 85027

== ENCOUNTER 2024-01-08 07:57 | Outpatient (OUT) | payer MEDICARE, SELFPAY ==
--- OUTSIDE RECORDS SUMMARY | 2024-01-08 08:02 | XMS_ITS | CCD ---
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 Name Role Phone NO REFERRING DR Unavailable Unavailable [employer] Unavailable Unavailable [employer], JNO Unavailable Unavailable Phyllis Reyes Unavailable Mary Bryson Unavailable uJn Perez Unavailable Unavailable Unavailable Edie Morse Unavailable [...] Primary Care Provider MapJESSA salazar Attending Provider [phone] MD Tj Solis Attending Provider Kun JARA, Jun Patel Primary Care Provider BRITNEY YU Attending Unavailable JUN PEREZ Primary Care Unavaila ble BRITNEY YU Attending Unavailable BRITNEY YU Referring Unavailable JUN PEREZ Primary Care Unavailmc Perez MD, Jun Patel Primary Care Provider Unavailable MD Jun Perez Primary Care Provider [phone] JESSA Parham Attending Provider [phone] MD Tj Solis Attending Provider MD Rodney Victor Attending Provider [phone] MD Britney Yu Attending Provider Jose Yu Unavailable Jun Perez Primary Care Unavailable Britney Yu Admitting Unavailable Britney Yu Attending Unavailable Britney Yu Admitting Unavailable Britney uY Attending Unavailable Jun Perez Primary Care Unavailable [...] Primary Care Provider JESSA Parham Attending Provider Allergies Allergy Classification Reported Allergen(s) Allergy Type Date of Onset Reaction(s) Facility (20 sources) Contrast media Propensity to adverse reactions Unknown [facility] [employer] Other (8 sources) Contrast media Allergy to substance (finding) Shortness of breath [facility] [address] DO Work Phone: (6 sources) Angiotensin Converting Enzyme (Elisa) Inhibitors; Translations: [ELISA Inhibitors] Allergy to drug (finding) [facility] 250 DO Work Phone: (1 source) Contrast media; Translations: [Contrast Dye] Propensity to adverse reactions to drug (disorder) [facility] (7 sources) Gadolinium-Cont aining Contrast Medi; Translations: [Gadolinium-Con taining Contrast Medi] Allergy to substance 1 Anaphylaxis [facility] (11 sources) Iodinated Contrast Media; Translations: [IODINATED CONTRAST MEDIA] Allergy to substance 1 Shortness of breath [facility] Medications Current Medications Medication Drug Class(es) Dates [...] a day Active take 1 tablet by atnvi th every twenty-four hours Aspirin 81 MG [...] day for 5 day(s) Aug, Active carvedilol 25 mg oral tablet (20 sources) alpha-Adrenergic Michelle, beta-Adrenergic Michelle Start: 01-05-2024 take 25 mg by mouth twice daily at mealtime Carvedilol Active 25 MG PO Twice daily January 05, 2024 12:00am must administer with a meal/food Start: 10-21-2023 End: 01-05-2024 take 12.5 mg by mouth twice daily Carvedilol Discontinued 12.5 MG PO Twice daily October 21, 2023 12:00am January 05, 2024 12:03pm Start: 06-08-2023 take 1 tablet by tanvi [...] lex y cholecalciferol (Vitamin D3) 50 MCG (1999 UT) tablet Take 1 tablet (50 mcg) by mouth once daily. 0 Active empagliflozin 25 mg oral tablet (19 sources) Sodium-Glucose Cotransporter 2 Inhibitor Start: 10-21-2023 End: 01-05-2024 take 1 tablet by mouth once daily Empagliflozin (Jardiance) 25 mg tablet Active 25 MG PO Daily January 05, 2024 12:04pm Start: 09-17-2023 take 10 mg by mouth [...] Active ferrous sulfate 325 mg oral tablet (14 sources) Start: 10-21-2023 Ferrous Sulfat e (Iron) [...] days Active take [address] [facility] three times daily gabapentin (Neurontin) 100 mg capsule Ta ke 1 capsule (100 mg) by mouth 3 times a day. 0 Active glipiZIDE 5 mg oral tablet (20 sources) Sulfonylurea Start: 01-05-2024 take 1 tablet by mouth twice daily 30 minutes before breakfast Glipizide Active 5 MG PO Twice daily January 05, 2024 12:00am [employer] tablet 30 minutes before breakfast Orally twice a day; Note: Source Status: Taking; Provider: Aimee Garcia ( ) take 1 tablet by tanvi th twice [...] before breakfast Orally Once a day Active hydrALAZINE hydrochloride 25 mg oral tablet (20 sources) Arteriolar Vasodilator Start: 09-28-2023 End: 09-27-2024 take 1.5 tablets by mouth three times daily Hydralazine Active MG PO January 05, 2024 12:00am [employer]Text[employer].5 tabs Orally Three times a day; Note: Source Status: Taking; Provider: Aimee Garcia ( ) End: 09-28-2023 take 1.5 tablets by mouth three times daily hydrALAZINE HCl 25 MG 1.5 tabs Orally Three times a day Active hydrALAZINE HCl 25 MG 1 1/2 tablet with food Orally Three times a day Active take 1 tablet by tanvi th every eight hours hydrALAZINE HCl 10 mg 1 tablet Orally Three times a day Active Iron (4 sources) take [...] Active losartan potassium 50 mg oral tablet (12 sources) Angiotensin 2 Receptor Michelle Start: 01-05-2024 take 1 tablet by mouth once daily Losartan Active 25 MG PO Daily January 05, 2024 12:07pm [employer] tablet Orally Once a day; Note: Source Status: StartStop Lisinopril; Refills: 1; Qty: 90 Tablet; Provider: Robyn Zimmer Start: 12-30-2023 End: 01-05-2024 take 1 tablet by mouth once daily Losartan Discontinued 50 MG PO Daily December 30, 2023 12:00am January 05, 2024 12:07pm [employer] tablet Orally Once a day; Note: Source Status: StartStop Lisinopril; Refills: 1; Qty: 90 Tablet; Provider: Robyn Zimmer Start: 09-01-2023 End: 09-28-2023 take 1 tablet by mouth every twenty-four hours Losartan Potassium 25 MG 1 tablet Orally Once a day for 90 days Aug, Active take 1 tablet by tanvi th every twenty-four hours Cozaar 50 MG 1 tablet Orally Once a day for 90 days Stop Lisinopril Active Multivitamin preparation (3 sources) Multivitamin Act fabien [place] 1000 MG (18 sources) take 1000 mg by mout h twice daily [place] 1000 MG as directed Orally BID Active [place] 450 MG (6 sources) take 450 mg by mouth three times daily [place] 450 MG as directed Orally three times a day Active [place] (5 sources) Start: 10-21-2023 take 450 mg by mouth three times daily at mealtime [place] Active 450 MG PO Three times daily October 21, 2023 12:00am give with food (meal/snack) SAW PALMETTO ORAL (2 sources) SAW PALMETTO ORA L Take by mouth once daily. 0 Active Vitamin C 1000 MG (4 sources) take 1 tablet by mouth once daily Vitamin C 1000 MG 1 tablet Orally Once a day Active Vitamin D3 50 MCG (1999 UT) (3 sources) take 1 tablet by mouth once daily Vitamin D3 50 MCG (1999 UT) 1 tablet Orally Once a day [...] Start: 02-17-2023 take 1 capsule by mo ut every eight hours Benzonatate 200 MG 1 [...] patient states he takes 30mg PRN Active methylPREDNISolone 125 mg injection (3 sources) Corticosteroid Start: 01-01-2024 End: 01-01-2024 inject 60 mg by intramuscular injection once daily in the morning Methylprednisolone Sodium Succ Discontinued 60 MG IM Every morning January 01, 2024 12:00am January 01, 2024 9:14am Start: 02-17-2023 methylPREDNISo lone 4 MG as directed Orally for 6 days Feb, Active predniSONE 20 mg oral tablet (7 sources) Start: 10-31-2023 take 1 tablet by mouth every twelve hours prednisone 20 MG 1 tablet Orally BID for 5 Oct, Not-Taking/PRN Start: 09-08-2022 take 1 tablet by tanvi th every twelve hours predniSONE 20 MG 1 tablet Orally 2 times a day for 5 day(s) Aug, Active sacubitril 97 mg / valsartan 103 mg oral tablet (15 sources) Angiotensin 2 Receptor Michelle Start: 10-15-2023 End: 10-14-2024 take 0.5 tablet by mouth twice daily Sacubitril-Valsartan (Entresto) 97-103 mg tablet Discontinued 0.5 TAB PO Twice daily October 21, 2023 12:00am January 05, 2024 12:06pm Start: 09-28-2023 End: 10-15-2023 take 1 tablet by mouth twice daily sacubitriL-valsartan (Entresto) 24-26 mg tablet Indications: Hypertensive heart and CKD, ESRD on dialysis ([facility]) , CHF (congestive heart failure), NYHA class II, acute on chronic, combined ([facility]) , Primary hypertension Take 1 [...] tablet Orally Twice a day Not-Taking/PRN [place] 1000 MG Oral Capsule (8 sources) [place] 100 0 MG Oral Capsule TAKE DIRECTED. Quantity: 0 Refills: 0 Ordered: 26-Dec-2022 DO Active triamcinolone acetonide 40 mg/ml injectable suspension (20 sources) Corticosteroid Start: 04-30-2022 Kenalog-40 15 Apr, 2022 20 mg Start: 04-30-2022 Kenalog-40 15 Apr, 2022 40 mg Start: 07-29-2021 Kenalog -40 mg Jul, 40 mg Problems Active Problems Problem Classification Problem Date Documented Date Episodic/Chronic Administrative/social admission (2 sources) Dietary counseling and surveillance Episodic Calculus of [...] not specified as acute or chronic Episodic Coagulation and hemorrhagic disorders (2 sources) Thrombocytopenic disorder; Translations: [Thrombocytopenia, unspecified] 01-05-2024 Chronic Conduction disorders (5 sources) First degree atrioventricular [...] kidney disease Chronic Deficiency and other anemia (12 sources) Iron deficiency anemia; Translations: [Iron deficiency anemia, unspecified] 01-04-2024 Episodic Deficiency and other anemia (1 source) [...] 3 Chronic Genitourinary symptoms and ill-defined conditions (6 sources) Proteinuria, unspecified; Translations: [Proteinuria] Onset: 3 Episodic Hypertension with complications and [...] sources) Long-term current use of insulin; Translations: [buttermaker (current) use of insulin] Episodic Other aftercare (4 sources) Other superintendent terminal (current) drug therapy; Translations: [Other superintendent terminal (current) drug therapy] Onset: 3 Episodic Other bone disease and musculoskeletal deformities (1 source) Disorder of bone, unspecified; Translations: [Disorder of bone, unspecified] Onset: 3 Episodic Other diseases of kidney and ureters (3 sources) Cyst of kidney, acquired; Translations: [Cystic kidney disease, unspecified] Onset: 3 Episodic Other diseases of kidney and ureters (1 source) Complex renal cyst; Translations: [Cyst of kidney, acquired] 01-04-2024 Episodic Other infections; including parasitic (5 sources) [...] subcutaneous tissue, unspecified Episodic Other upper respiratory disease (1 source) Allergic rhinitis; Translations: [Allergic rhinitis, unspecified] 12-31-2023 Chronic Other upper respiratory disease (1 source) Allergic rhinitis, unspecified; Translations: [Allergic rhinitis, cause unspecified] 12-31-2023 Chronic Other upper respiratory infections (1 source) Acute [...] Onset: 3 09-25-2023 Chronic Residual codes; unclassified (6 sources) Transient alteration of awareness; Translations: [Transient [...] Classification Problem Date Documented Da te Episodic/Chronic Inflammation; infection of eye (except that caused by tuberculosis or sexually transmitteddisease) (1 source) Hordeolum externum right lower eyelid Onset: 05-25-2022 Resolved: 05-25-2022 Episodic Other connective tissue disease (1 source) Pain in left hand Onset: 04-30-2022 Resolved: 04-30-2022 Episodic Other skin disorders (1 source) Change in skin lesion; Translations: [Anemia in chronic kidney disease] Onset: 09-17-2023 Episodic Unclassified (8 sources) Never smoked tobacco; Translations: [Never a smoker] Unclassified (1 source) Chronic cough R05.3 Unclassified (2 sources) Onset: 09-28-2023 Resolved: 10-15-2023 09-28-2023 Viral infection (1 source) COVID-19 Results Test Name Value Interpretation Reference Range Facility Automated epithelial cells c ount in urine sediment (number/area)on 01-04-2024 Epithelial cells Auto (Urine sed) [#/Area] RARE #/LPF NONE/RARE [facility] Automated leukocytes count i n urine sediment (number/area)on 01-04-2024 WBC Auto (Urine sed) [#/Area] NONE SEEN #/HPF 0-2 [facility] Automated urine specific gra vity by refractometryon 01-04-2024 Specific gravity Refractometry automated (U) [Rel density] 1.025 1.005-1.025 [facility] Bilirubin Auto test strip (U ) [Mass/Vol]on 01-04-2024 Bilirubin (U) [Mass/Vol] Negative NEGATIVE [facility] Color Auto (U)on 01-04-2024 Color (U) LT. YELLOW YELLOW [facility] Erythrocyte distribution wid th Auto (RBC) [Ratio]on 01-04-2024 Erythrocyte distribution width (RBC) [Ratio] 15.2 % 11.0-15.0 [facility] Estimated glomerular filtrat ion rate (GFR) non- Americanon 01-04-2024 GFR/1.73 sq M.predicted among non-blacks MDRD (S/P/Bld) [Vol rate/Area] 47 mL/min/{1.73_m2} >=60 [facility] Hematocrit Auto (Bld) [Volum e fraction]on 01-04-2024 Hematocrit (Bld) [Volume fraction] 46.3 % 42.0-54.0 [facility] Hemoglobin [Mass/volume] in Bloodon 01-04-2024 Hemoglobin (Bld) [Mass/Vol] 14.1 g/dL 14.0-18.0 [facility] Ketones Auto test strip (U) [Mass/Vol]on 01-04-2024 Ketones (U) [Mass/Vol] Negative NEGATIVE Fi [facility] Laboratory - Chemistry and C hemistry - challengeon 01-04-2024 Albumin [Mass/Vol] 3.5 g/dL 3.4-5.0 [facility] Calcium [Mass/Vol] 8.7 mg/dL 8.5-10.1 [facility] Chloride [Moles/Vol] 106 mmol/L 98-107 [facility] CO2 [Moles/Vol] 26.1 mmol/L 21.0-32.0 [facility] Creatinine [Mass/Vol] 1.46 mg/dL 0.70-1.30 [facility] GFR/1.73 sq M.predicted MDRD (S/P/Bld) [Vol rate/Area] 57 mL/min/{1.73_m2} >=60 [facility] Glucose [Mass/Vol] 118 mg/dL 74-106 [facility] Magnesium [Mass/Vol] 2.3 mg/dL 1.8-2.4 [facility] Potassium [Moles/Vol] 4.7 mmol/L 3.5-5.1 [facility] Sodium [Moles/Vol] 140 mmol/L 136-145 [facility] Urate [Mass/Vol] 6.4 mg/dL 3.5-7.2 [facility] Urea nitrogen [Mass/Vol] 31.0 mg/dL 7.0-18.0 [facility] Urea nitrogen/Creatinine [Mass ratio] 21.2 mg/mg [facility] Leukocytes [#/volume] correc ritu for nucleated erythrocytes in Blood by Automated counon 01-04-2024 WBC corrected for nucl RBC Auto (Bld) [#/Vol] 5.4 10 3/uL 4.0-11.0 [facility] MCH Auto (RBC) [Entitic mass ]on 01-04-2024 MCH (RBC) [Entitic mass] 26.5 pg 25.9-34.0 [facility] MCHC Auto (RBC) [Mass/Vol]on 01-04-2024 MCHC (RBC) [Mass/Vol] 30.5 g/dL 29.9-35.2 [facility] MCV Auto (RBC) [Entitic vol] on 01-04-2024 MCV (RBC) [Entitic vol] 87.0 fL 80.0-94.0 F [facility] Mucus LM Ql (Urine sed)on Mucus Ql (Urine sed) NONE SEEN NONE SEEN [facility] No Panel Informationon 01-04 Phosphorus Level 4.1 mg/dL 2.6-4.7 [facility] Platelet mean volume Auto (B ld) [Entitic vol]on 01-04-2024 Platelet mean volume (Bld) [Entitic vol] 12.0 fL 9.5-13.5 [facility] Platelets Auto (Bld) [#/Vol] on 01-04-2024 Platelets (Bld) [#/Vol] 106 10 3/uL 150-450 [facility] Protein Auto test strip (U) [Mass/Vol]on 01-04-2024 Protein (U) [Mass/Vol] 30 mg/dL NEG/TRACE Fi [facility] RBC Auto (Bld) [#/Vol]on RBC (Bld) [#/Vol] 5.32 10 6/uL 4.70-6.10 [facility] Serum or plasma anion gap de terminationon 01-04-2024 Anion gap [Moles/Vol] 12.6 mmol/L [facility] Specific gravity Auto test s trip (U) [Rel density]on 01-04-2024 Specific gravity (U) [Rel density] CLEAR CLEAR [facility] Urine bacteria detection by automated methodon 01-04-2024 Bacteria Auto Ql (U) NONE SEEN #/HPF NONE SEEN [facility] Urine glucose measurement by test strip (mass/volume)on 01-04-2024 Glucose Test strip (U) [Mass/Vol] >=1000 mg/dL NEGATIVE [facility] Urine hemoglobin detection b y automated test stripon 01-04-2024 Hemoglobin Auto test strip Ql (U) Negative NEGATIVE [facility] Urine nitrite detection by a utomated test stripon 01-04-2024 Nitrite Auto test strip Ql (U) Negative NEGATIVE [facility] Urine sediment leukocyte cou nt by microscopy (number/high power field)on 01-04-2024 WBC LM.HPF (Urine sed) [#/Area] NONE SEEN #/HPF NONE SEEN [facility] Urobilinogen Auto test strip (U) [Mass/Vol]on 01-04-2024 Urobilinogen Qn (U) 0.2 {Dolores'U}/dL 0.2-1.0 [facility] pH Auto test strip (U)on pH (U) 5.5 [pH] 5.0-9.0 [facility] A1C HEMOGLOBINon 12-22-2023 HbA1c (Bld) [Mass fraction] 7.7 % [facility] [employer] Other Glucose - FINGER STICKon Glucose [Mass/Vol] 137 mg/dL [facility] [employer] Other HbA1c (Bld) [Mass fraction]o n 12-22-2023 A1C HEMOGLOBIN [facility] [employer] Other Basic Metabolic Panelon 12-2 Anion gap [Moles/Vol] 14.0 mmol/L Normal 6.0-15.0 [facility] Comment on above: Performed By: #### B MP #### [facility] [address] Calcium [Mass/Vol] 9.1 mg/dL Normal 8.6-10.3 [facility] Comment on above: Result Comment: PERF ORMED BY: [facility] [address] [facility] [place] [address] PATHOLOGIST BIKE TECHNICIAN TRAN RANDOLPH M.D. Performed By: #### B MP #### [facility] [address] [place] [address] [place] Chloride [Moles/Vol] 104 mmol/L Normal 98-107 [facility] Comment on above: Performed By: #### B MP #### [facility] [address] [place] [address] [place] CO2 [Moles/Vol] 22.5 mmol/L Normal 21.0-31.0 [facility] Comment on above: Performed By: #### B MP #### [facility] [address] [place] [id number] [place] Creatinine [Mass/Vol] 1.66 mg/dL High 0.70-1.30 [facility] Comment on above: Performed By: #### B MP #### [facility] [address] [place] [address] [place] GFR/1.73 sq M.predicted MDRD (S/P/Bld) [Vol rate/Area] 43.529 mL/min/{1.73_m2} Normal [facility] Comment on above: Performed By: #### B MP #### [facility] [address] Glucose [Mass/Vol] 354 mg/dL High 70-100 [facility] Comment on above: Result Comment: [place] Glucose Reference Range is dependent on time and content of last meal. Glucose of more than 200 mg/dL in a nonstressed, ambulatory subject supports the diagnosis of Diabetes Mellitus. ADA recommended reference range Performed By: #### B MP #### [facility] [address] [place] [address] [place] Potassium [Moles/Vol] 4.5 mmol/L Normal 3.5-5.1 [facility] Comment on above: Performed By: #### B MP #### [facility] [address] [place] [address] [place] Sodium [Moles/Vol] 136 mmol/L Normal 136-145 [facility] Comment on above: Performed By: #### B MP #### [facility] [address] [place] [address] [place] Urea nitrogen [Mass/Vol] 43 mg/dL High 7-25 [facility] Comment on above: Performed By: #### B MP #### [facility] [address] [place] [address] [place] Calcium [Mass/volume] in Ser um or PlasmaOrdered By: Britney Yu on 11-05-2023 Calcium [Mass/Vol] 9.1 mg/dL 8.6-10.3 [facility] Carbon dioxide, total [Moles /volume] in Serum or PlasmaOrdered By: Britney Yu on 11-05-2023 CO2 [Moles/Vol] 22.5 mmol/L 21.0-31.0 [facility] Chloride [Moles/volume] in S niya or PlasmaOrdered By: Britney Yu on 11-05-2023 Chloride [Moles/Vol] 104 mmol/L 98-107 [facility] Creatinine [Mass/volume] in Serum or PlasmaOrdered By: Britney Yu on 11-05-2023 Creatinine [Mass/Vol] 1.66 mg/dL 0.70-1.30 [facility] Glucose [Mass/volume] in Ser um or PlasmaOrdered By: Britney Yu on 11-05-2023 Glucose [Mass/Vol] 354 mg/dL 70-100 [facility] Comment on above: ADA recommended refe rence rangeRandom Glucose Reference Range is dependent on time and content of last meal. Glucose of more than 200 mg/dL in a nonstressed, ambulatory subject supports the diagnosis of Diabetes Mellitus. No Panel InformationOrdered By: Britney Yu on 11-05-2023 Estimated GFR (CKD-EPI) 43.529 mL/Min [facility] Creatinine Clearance (Chem N/A [facility] Potassium [Moles/volume] in Serum or PlasmaOrdered By: Britney Yu on 11-05-2023 Potassium [Moles/Vol] 4.5 mmol/L 3.5-5.1 [facility] Serum or plasma anion gap de terminationOrdered By: Britney Yu on 11-05-2023 Anion gap [Moles/Vol] 14.0 mmol/L 6.0-15.0 [facility] Sodium [Moles/volume] in Ser um or PlasmaOrdered By: Britney Yu on 11-05-2023 Sodium [Moles/Vol] 136 mmol/L 136-145 [facility] Urea nitrogen [Mass/volume] in Serum or PlasmaOrdered By: Britney Yu on 11-05-2023 Urea nitrogen [Mass/Vol] 43 mg/dL 7-25 [facility] Basic Metabolic Panelon 12- Anion gap [Moles/Vol] 13.1 mmol/L Normal 6.0-15.0 [facility] Comment on above: Performed By: #### B MP #### [facility] [address] Calcium [Mass/Vol] 9.5 mg/dL Normal 8.6-10.3 [facility] Comment on above: Result Comment: PERF ORMED BY: [place] [address] PATHOLOGIST BIKE TECHNICIAN TRAN RANDOLPH M.D. Performed By: #### B MP #### [address] Chloride [Moles/Vol] 109 mmol/L High 98-107 [facility] Comment on above: Performed By: #### B MP #### [address] CO2 [Moles/Vol] 25.0 mmol/L Normal 21.0-31.0 [facility] Comment on above: Performed By: #### B MP #### [address] Creatinine [Mass/Vol] 1.59 mg/dL High 0.70-1.30 [facility] Comment on above: Performed By: #### B MP #### [place] [address] [place] GFR/1.73 sq M.predicted MDRD (S/P/Bld) [Vol rate/Area] 45.838 mL/min/{1.73_m2} Normal [facility] Comment on above: Performed By: #### B MP #### [place] [address] [place] Glucose [Mass/Vol] 206 mg/dL High 70-100 [facility] Comment on above: Result Comment: [place] Glucose Reference Range is dependent on time and content of last meal. Glucose of more than 200 mg/dL in a nonstressed, ambulatory subject supports the diagnosis of Diabetes Mellitus. ADA recommended reference range Performed By: #### B MP #### [facility] [address] [place] [address] [place] Potassium [Moles/Vol] 5.1 mmol/L Normal 3.5-5.1 [facility] Comment on above: Performed By: #### B MP #### [facility] [address] [place] [address] [place] Sodium [Moles/Vol] 142 mmol/L Normal 136-145 [facility] Comment on above: Performed By: #### B MP #### [facility] [address] [place] [address] [place] Urea nitrogen [Mass/Vol] 28 mg/dL High 7-25 [facility] Comment on above: Performed By: #### B MP #### [facility] [address] [place] [id number] [facility] Calcium [Mass/volume] in Ser um or PlasmaOrdered By: Britney Yu on 10-26-2023 Calcium [Mass/Vol] 9.5 mg/dL 8.6-10.3 [facility] Carbon dioxide, total [Moles /volume] in Serum or PlasmaOrdered By: Britney Yu on 10-26-2023 CO2 [Moles/Vol] 25.0 mmol/L 21.0-31.0 [facility] Chloride [Moles/volume] in S niya or PlasmaOrdered By: Britney Yu on 10-26-2023 Chloride [Moles/Vol] 109 mmol/L 98-107 [facility] Creatinine [Mass/volume] in Serum or PlasmaOrdered By: Britney Yu on 10-26-2023 Creatinine [Mass/Vol] 1.59 mg/dL 0.70-1.30 [facility] Glucose [Mass/volume] in Ser um or PlasmaOrdered By: Britney Yu on 10-26-2023 Glucose [Mass/Vol] 206 mg/dL 70-100 [facility] Comment on above: ADA recommended refe rence rangeRandom Glucose Reference Range is dependent on time and content of last meal. Glucose of more than 200 mg/dL in a nonstressed, ambulatory subject supports the diagnosis of Diabetes Mellitus. No Panel InformationOrdered By: Britney Yu on 10-26-2023 Estimated GFR (CKD-EPI) 45.838 mL/Min [facility] Creatinine Clearance (Chem N/A [facility] Potassium [Moles/volume] in Serum or PlasmaOrdered By: Britney Yu on 10-26-2023 Potassium [Moles/Vol] 5.1 mmol/L 3.5-5.1 [facility] Serum or plasma anion gap de terminationOrdered By: Britney Yu on 10-26-2023 Anion gap [Moles/Vol] 13.1 mmol/L 6.0-15.0 [facility] Sodium [Moles/volume] in Ser um or PlasmaOrdered By: Britney Yu on 10-26-2023 Sodium [Moles/Vol] 142 mmol/L 136-145 [facility] Urea nitrogen [Mass/volume] in Serum or PlasmaOrdered By: Britney Yu on 10-26-2023 Urea nitrogen [Mass/Vol] 28 mg/dL 7-25 [facility] Glucose Glucometer (BldC) [M ass/Vol]Ordered By: Rodney Victor on 10-21-2023 Glucose [Mass/Vol] 155 mg/dL [facility] Comment on above: Random Glucose Refer ence Range is dependent on time and content of last meal. Glucose of more than 200 mg/dL in a nonstressed, ambulatory subject supports the diagnosis of Diabetes Mellitus. Glucose Poct Glucometerson 1 12-22-2022 Glucose [Mass/Vol] 155 mg/dL Normal [facility] Comment on above: Result Comment: [place] Glucose Reference Range is dependent on time and content of last meal. Glucose of more than 200 mg/dL in a nonstressed, ambulatory subject supports the diagnosis of Diabetes Mellitus. PERFORMED BY: [facility] [address] [place] [address] PATHOLOGIST BIKE TECHNICIAN TRAN RANDOLPH M.D. Performed By: #### G LUHAYES #### Point of Care testing , [facility] 10-21-2023 L Specimen: [id number] Received: 10/21/23 Status: DONTAE Rangel Num: [id number] Spec Type: Surgical Subm Dr: Rodney Victor MD Tissues: A Colon Biopsy (CECAL POLYP) B Colon Biopsy (TRANSV POLYP) Procedures: HE/Erick, Gross/Micro L4/2 Age/ Patient Sex Location Account Attending Physician Td Giraldo/Homero [id number] Rodney Victor MD SPEC NUM: [id number] RECD: 10/21/23 STATUS: DONTAE RANGEL NUM: [id number] EBONI: 10/21/23- [facility] DR: Rodney Victor MD ENTERED: 10/21/23 [facility] DR: SPEC TYPE: Surgical DEPT: S ORDERED: HE/4, Gross/Micro L4/2 ORDERED: HE, Gross/Micro L4/2 Pathological Diagnosis A. Cecum, polyp, [...] submitted in one cassette labeled B1. Specimen: [id number] Received: 10/21/23 Status: DONTAE Rangel Num: [id number] Spec Type: Surgical Subm Dr: Rodney Victor MD Tissues: A Colon Biopsy (CECAL POLYP) B Colon Biopsy (TRANSV POLYP) Procedures: LINDAErick, Gross/Micro L4/2 Patient: Td Giraldo [id number] (Continued) Specimen: [id number] Received: 10/21/23 (Continued) Signed (signature on file) Beto Torres MD 10/23/23 1144 Specimen: Received: 10/21/23 Status: DONTAE Rangel Num: [id number] Spec Type: Surgical Subm Dr: Rodney Victor MD Tissues: A Colon Biopsy (CECAL POLYP) B Colon Biopsy (TRANSV POLYP) Procedures: LINDA/Erick, Gross/Micro L4/2 Patient: Td Giraldo [id number] (Continued) Specimen: [id number] Received: 10/21/23 (Continued) Microscopic Description A. Two H E slides reviewed. The microscopic examination confirms the diagnosis. B. Two H E slides reviewed. The microscopic examination confirms the diagnosis. CPT Codes 34315y5 Specimen: [id number] Received: 10/21/23 Status: AZEBZi Rashaun Num: [id number] Spec Type: Surgical Subm Dr: Rodney Victor MD Tissues: A Colon Biopsy (CECAL POLYP) B Colon Biopsy (TRANSV POLYP) Procedures: LINDA/Erick, Gross/Micro L4/2 Patient: Td Giraldo [id number] (Continued) Signed (signature on file) Beto Torres MD 10/23/23 1144 [facility] Glucose - FINGER STICKon Glucose [Mass/Vol] 215 mg/dL [employer] Other US renal BIon 09-17-2023 US renal BI [facility] Main [place] [address] [place] [address] Ultrasound Report Signed Patient: Td Giraldo MR#: [id number] : 1950 Acct:[id number] Age/Sex: 72 / M ADM Date: 09/17/23 Loc: Room: Type: [facility] Attending Dr: Tj Solis MD Ordering Provider: [...] Hahn Jr., D.O.09/17/2023 3:32 PM Dictation Location: [facility]14 Tech: Edie Lala Transcribed By: MOE 09/17/231531 Dictated By: Tobias Hahn Jr DO 09/17/23 153 Signed By: 09/17/23 153 [facility] Tobacco Screening.on 023 Fall risk assessment a) No falls within the last year -[facility] [employer] [address] DO Work Phone: Tobacco use status CPHS b) No M -[facility] [employer] [address] DO Work Phone: Office Visit (Cardiology)on [...] Patient was originally seen by and then Odilai Goode at her recent office visit, and [...] Patient is no longer receiving care from [facility]: Transferred care to [facility] with new patient assessment by Dr. Osborn [...] today. Reports prior cardiac cath in 2013 with angiographically normal coronaries. Incomplete left bundle [...] January, there has been further prolongation of WI interval and mild elongation of QRS duration. [...] a diabe (more content not included)... Normal [facility] Tobacco Screening.on 023 Tobacco use status CPHS b) No M P-[facility] 250 DO Work Phone: [facility] MUGA SCAN INJECTIONon [facility] MUGA SCAN INJECTION Patient Name: ADRIEL GIRALDO STUDY: MUGA Performing facility: [facility], [address] [place] [address], [address], [address] Provider: Odilia Mackenzie RN, LEAD GENERATOR PCP: Dr. Sam Perez Supervising provider: Jemima Gastelum MD INDICATION: Cardiomyopathy HISTORY: Gender: M; Age: 72 y/o ; Height: 0 cm; Weight: 131.668220 kg. High Cholesterol; HTN; Denies smoking. COMPARISON: Previous nuclear testing completed [id number] MPI EF=31% at [facility]. Previous echo testing completed [id number] EF= 25-30% at [facility]. ACCESSION NUMBER(S): [id number]; [id number] ORDERING CLINICIAN: ODILIA MACKENZIE TECHNIQUE: The patient [...] Electronically signed by: JEMIMA GASTELUM MD Normal [facility] No Panel Informationon 04-27 [facility] Work Phone: IMMUNOFIXATION (EMILY), URINEo n 04-15-2023 EMILY Interpretation:U Comment Normal [facility] Comment on above: Result Comment: No m onoclonality detected. Performed By: #### I MUNFXU #### [facility] [address] [address] [address] Santos Mchugh PROTEIN ELECTROPHERESIS URIN E RANDOMon 04-15-2023 Albumin, U 66.6 % Normal [facility] Comment on above: Performed By: #### U PTE #### [facility] [address] [address] [address] Santos Mchugh Alpha-1 Globulin U 4.9 % Normal [facility] Comment on above: Performed By: #### U PTE #### [facility] [address] [address] [address] Santos Mchugh Alpha-2 Glubulin U 7.5 % Normal [facility] Comment on above: Performed By: #### U PTE #### [facility] [address] [address] [address] Santos Mchugh Beta Globulin, U 12.9 % Normal [facility] Comment on above: Performed By: #### U PTE #### [facility] [address] [address] [address] Santos Mchugh Gamma Globulin U 8.1 % Normal [facility] Comment on above: Performed By: #### U PTE #### [facility] [address] [address] [address] Santos Mchugh M-Tavo, % Not Observed Normal Not Observed [facility] Comment on above: Performed By: #### U PTE #### [facility] [address] [address] [address] Santos Mchugh PDF . Normal [facility] Comment on above: Performed By: #### U PTE #### [facility] [address] [place] [address] Dr. Santos Mchugh Please note: Comment Normal [facility] Comment on above: Result Comment: Prot ein electrophoresis scan will follow via computer, mail, or metal dresser delivery. Performed By: #### U PTE #### [facility] [address] [place] [address] Dr. Santos Mchugh Protein (U) [Mass/Vol] 64.1 mg/dL Normal Not Estab. Th e [facility] Comment on above: Performed By: #### U PTE #### [facility] [address] [place] [address] Dr. Santos Mchugh FREE LIGHT CHAINS PLUS RATIO on 04-14-2023 Free Hooks Lt Chains,S 49.2 mg/L Critically high 3.3-19.4 [facility] Comment on above: Performed By: #### F REELIT #### [facility] [address] [place] [address] Dr. Santos Mchugh Free Lambda Lt Chains,S 19.3 mg/L Normal 5.7-26.3 [facility] Comment on above: Performed By: #### F REELIT #### [facility] [address] [place] [address] Dr. Santos Mchugh Hooks/Lambda Ratio, S 2.55 Critically high 0.26-1.65 [facility] Comment on above: Performed By: #### F REELIT #### [facility] [address] [place] [address] Dr. Santos Mchugh IMMUNOFIXATION (EMILY), SERUMo n 04-14-2023 IMMUNOFIXATION RESULT Comment Normal [facility] Comment on above: Result Comment: No m onoclonality detected. Performed By: #### U AMIC #### [facility] [address] [place] [address] Dr. Santos Mchugh Immunoglobulin A, Qn, Serum 186 mg/dL Normal 61-437 [facility] Comment on above: Performed By: #### U AMIC #### [facility] [address] [place] [address] Dr. Santos Mchugh Immunoglobulin G, Qn, Serum 854 mg/dL Normal 603-1613 [facility] Comment on above: Performed By: #### U AMIC #### [facility] [address] [address] [address] Santos Mchugh Immunoglobulin M, Qn, Serum 62 mg/dL Normal 15-143 [facility] Comment on above: Performed By: #### U AMIC #### [facility] [address] [place] [address] Dr. Santos Mchugh PROTEIN ELECTROPHERESISon Albumin [Mass/Vol] 3.5 g/dL Normal 2.9-4.4 [facility] Comment on above: Performed By: #### P RTELEC #### [facility] [address] [place] [address] Dr. Santos Mchugh Albumin/Globulin [Mass ratio] 1.1 {ratio} Normal 0.7-1.7 [facility] Comment on above: Performed By: #### P RTELEC #### [facility] [address] [place] [address] Dr. Santos Mchugh Fdufx-2-Zsszdtzm 0.2 g/dL Normal 0.0-0.4 [facility] Comment on above: Performed By: #### P RTELEC #### [facility] [address] [place] [address] Dr. Santos Mchugh Phmws-1-Yjeromra 0.9 g/dL Normal 0.4-1.0 [facility] Comment on above: Performed By: #### P RTELEC #### [facility] [address] [place] [address] Dr. Santos Mchugh Beta Globulin 1.2 g/dL Normal 0.7-1.3 [facility] Comment on above: Performed By: #### P RTELEC #### [facility] [address] [place] [address] Dr. Santos Mchugh Gamma Globulin 0.8 g/dL Normal 0.4-1.8 [facility] Comment on above: Performed By: #### P RTELEC #### [facility] [address] [place] [address] Dr. Santos Mchugh Globulin (S) [Mass/Vol] 3.1 g/dL Normal 2.2-3.9 [facility] Comment on above: Performed By: #### P RTELEC #### [facility] [address] [place] [address] Dr. Santos Mchugh M-Tavo Comment: Normal Not Observed [facility] Comment on above: Result Comment: SPE shows asymmetrical beta. Performed By: #### P RTELEC #### [facility] [address] [place] [address] Dr. Santos Mchugh PDF . Normal [facility] Comment on above: Performed By: #### P RTELEC #### [facility] [address] [place] [address] Dr. Santos Mchugh Please note: Comment Normal [facility] Comment on above: Result Comment: Prot ein electrophoresis scan will follow via computer, mail, or metal dresser delivery. Performed By: #### P RTELEC #### [facility] [address] [place] [address] Dr. Santso Mchugh Protein [Mass/Vol] 6.6 g/dL Normal 6.0-8.5 [facility] Comment on above: Performed By: #### P RTELEC #### [facility] [address] [place] [address] Dr. Santos Mchugh PTH INTACTon 04-11-2023 PTH, Intact 52 pg/mL Normal 15-65 [facility] Comment on above: Performed By: #### P THINT #### [facility] [address] [place] [address] Dr. Santos Mchugh HEMOGRAM AND PLATELon 2022 Hematocrit (Bld) [Volume fraction] 41.9 % Critically low 42.0-54.0 [facility] Comment on above: Performed By: #### U AMIC #### [facility] [address] [place] [address] Dr. Santos Mchugh Hemoglobin (Bld) [Mass/Vol] 13.3 g/dL Critically low 14.0-18.0 [facility] Comment on above: Performed By: #### U AMIC #### [facility] [address] [place] [address] Dr. Santos Mchugh MCH (RBC) [Entitic mass] 26.3 pg Normal 25.9-34.0 [facility] Comment on above: Performed By: #### U AMIC #### [facility] [address] [place] [address] Dr. Santos Mchugh MCHC (RBC) [Mass/Vol] 31.7 g/dL Normal 29.9-35.2 [facility] Comment on above: Performed By: #### U AMIC #### [facility] [address] [place] [address] Dr. Santos Mchugh MCV (RBC) [Entitic vol] 82.8 fL Normal 80.0-94.0 [facility] Comment on above: Performed By: #### U AMIC #### [facility] [address] [place] [address] Dr. Santos Mchugh PLT 167 103/ul Normal 150-450 [facility] Comment on above: Performed By: #### U AMIC #### [facility] [address] [place] [address] Dr. Santos Mchugh RBC 5.06 106/ul Normal 4.70-6.10 [facility] Comment on above: Performed By: #### U AMIC #### [facility] [address] [place] [address] Dr. Santos Mchugh WBC 5.2 103/ul Normal 4.0-11.0 [facility] Comment on above: Performed By: #### U AMIC #### [facility] [address] [place] [address] Dr. Santos Mchugh Office Visit (Cardiology)on 04-10-2023 [...] with dilated LVEF 31%. I reviewed prior [facility] cardiology note dated August 25, 2022. Patient [...] Patient is no longer receiving care from [facility]: Transferred care to [facility] with new patient assessment by Dr. Osborn [...] today. Reports prior cardiac cath in 2013 with angiographically normal coronaries. Incomplete left bundle [...] reports that usually calibrated yearly by the [facility] clinic, will no longer be seen in the [facility] clinic and referred to the sleep clinic [...] side eff (more content not included)... Normal [facility] RENAL FUNCTION PANELon 04-10 Albumin [Mass/Vol] 3.6 g/dL Normal 3.4-5.0 [facility] Comment on above: Performed By: #### U KAJAL, RENAL #### [facility] [address] [place] [address] Dr. Santos Mchugh Calcium [Mass/Vol] 8.9 mg/dL Normal 8.5-10.1 [facility] Comment on above: Performed By: #### U KAJAL, RENAL #### [facility] [address] [address] [address] Santos Mchugh Chloride [Moles/Vol] 103 mmol/L Normal 98-107 [facility] Comment on above: Performed By: #### U KAJAL, RENAL #### [facility] [address] [address] [address] Santos Mchugh CO2 [Moles/Vol] 28.4 mmol/L Normal 21.0-32.0 [facility] Comment on above: Performed By: #### U KAJAL, RENAL #### [facility] [address] [place] [address] Dr. Santos Mchugh Creatinine [Mass/Vol] 1.48 mg/dL Critically high 0.70-1.30 [facility] Comment on above: Performed By: #### U KAJAL, RENAL #### [facility] [address] [place] [address] Dr. Santos Mchugh EGFR-AF UKRAINIAN 57 mL/min/1.73m2 Critically low >=60 [facility] Comment on above: Performed By: #### U KAJAL, RENAL #### [facility] [address] [place] [address] Dr. Santos Mchugh EGFR-NON AF UKRAINIAN 47 mL/min/1.73m2 Critically low >=60 [facility] Comment on above: Performed By: #### U KAJAL, RENAL #### [facility] [address] [place] [address] Dr. Santos Mchugh Glucose [Mass/Vol] 122 mg/dL Critically high 74-106 [facility] Comment on above: Performed By: #### U KAJAL, RENAL #### [facility] [address] [address] [address] Santos Mchugh Phosphate [Mass/Vol] 3.9 mg/dL Normal 2.6-4.7 [facility] Comment on above: Performed By: #### U KAJAL, RENAL #### [facility] [address] [address] [address] Santos Mchugh Potassium [Moles/Vol] 4.5 mmol/L Normal 3.5-5.1 [facility] Comment on above: Performed By: #### U KAJAL, RENAL #### [facility] [address] [address] [address] Santos Mchugh Sodium [Moles/Vol] 140 mmol/L Normal 136-145 [facility] Comment on above: Performed By: #### U KAJAL, RENAL #### [facility] [address] [address] [address] Santos Mchugh Urea nitrogen [Mass/Vol] 23.0 mg/dL Critically high 7.0-18.0 [facility] Comment on above: Performed By: #### U KAJAL, RENAL #### [facility] [address] [place] [address] Dr. Santos Mchugh Tobacco Screening.on 023 Fall risk assessment a) No falls within the last year [facility] [employer] [address] DO Work Phone: Tobacco use status CPHS b) No M [facility] [employer] DO Work Phone: UA RANDOM W/MICROSCOPICon BACTERIA NONE SEEN Normal NONE SEEN [facility] Comment on above: Performed By: #### U AMIC #### [facility] [address] [place] [address] Dr. Santos Mchugh Bilirubin Ql (U) Negative Normal NEGATIVE [facility] Comment on above: Performed By: #### U AMIC #### [facility] [address] [place] [address] Dr. Santos Mchugh CAST NONE SEEN Normal NONE SEEN [facility] Comment on above: Performed By: #### U AMIC #### [facility] [address] [place] [address] Dr. Santos Mchugh Clarity (U) CLEAR Normal CLEAR [facility] Comment on above: Performed By: #### U AMIC #### [facility] [address] [place] [address] Dr. Santos Mchugh Color (U) LT. YELLOW Normal YELLOW [facility] Comment on above: Performed By: #### U AMIC #### [facility] [address] [address] [address] Santos Mchugh Crystals LM Nom (Urine sed) NONE SEEN Normal NONE SEEN [facility] Comment on above: Performed By: #### U AMIC #### [facility] [address] [address] [address] Santos Mchugh Epithelial cells LM Ql (Urine sed) NONE SEEN Normal NONE SEEN /RARE [facility] Comment on above: Performed By: #### U AMIC #### [facility] [address] [address] [address] Santos Mchugh Glucose Ql (U) Negative Normal NEGATIVE [facility] Comment on above: Performed By: #### U AMIC #### [facility] [address] [place] [address] Dr. Santos Mchugh Hemoglobin Ql (U) Negative Normal NEGATIVE [facility] Comment on above: Performed By: #### U AMIC #### [facility] [address] [address] [address] Santos Mchugh Ketones Ql (U) Negative Normal NEGATIVE [facility] Comment on above: Performed By: #### U AMIC #### [facility] [address] [address] [address] Santos Mchugh LEUKOCYTES Negative Normal NEGATIVE [facility] Comment on above: Performed By: #### U AMIC #### [facility] [address] [address] [address] Santos Mchugh MUCOUS NONE SEEN Normal NONE SEEN [facility] Comment on above: Performed By: #### U AMIC #### [facility] [address] [address] [address] Santos Mchugh Nitrite Ql (U) Negative Normal NEGATIVE [facility] Comment on above: Performed By: #### U AMIC #### [facility] [address] [address] [address] Santos Mchugh pH (U) 6.0 [pH] Normal 5-9 [facility] Comment on above: Performed By: #### U AMIC #### [facility] [address] [place] [address] Dr. Santos Mchugh RBC 0-2 Normal 0-2 [facility] Comment on above: Performed By: #### U AMIC #### [facility] [address] [place] [address] Dr. Santos Mchugh SPEC GRAVITY 1.015 Normal 1.005-<=1.02 5 [facility] Comment on above: Performed By: #### U AMIC #### [facility] [address] [place] [address] Dr. Santos Mchugh UA PROTEIN 100 mg/dl Abnormal NEGATIVE/ TRACE [facility] Comment on above: Performed By: #### U AMIC #### [facility] [address] [place] [address] Dr. Santos Mchugh Urobilinogen Qn (U) 0.2 {Dolores'U}/dL Normal 0.2 - 1. 0 [facility] Comment on above: Performed By: #### U AMIC #### [facility] [address] [place] [address] Dr. Santos Mchugh WBC NONE SEEN Normal NONE SEEN [facility] Comment on above: Performed By: #### U AMIC #### [facility] [address] [place] [address] Dr. Santos Mchugh URIC ACID SERUMon 04-10-2023 Urate [Mass/Vol] 7.0 mg/dL Normal 3.5-7.2 [facility] Comment on above: Performed By: #### U KAJAL, RENAL #### [facility] [address] [place] [address] Dr. Santos Mchugh URINE T PROTEIN CREAT RATIOo n 04-10-2023 Protein (U) [Mass/Vol] 68.1 mg/dL Critically high <=12.0 [facility] Comment on above: Performed By: #### U RTPCR #### [facility] [address] [place] [address] Dr. Santos Mchugh UR PROT CREAT RAT 0.97 Normal [facility] Comment on above: Performed By: #### U RTPCR #### [facility] [address] [address] [address] Santos Mchugh URINE CREAT 70.53 mg/dL Normal 20.00-300.00 [facility] Comment on above: Performed By: #### U RTPCR #### [facility] [address] [address] [address] Santos Mchugh VITAMIN D 25 OHon 04-10-2023 VIT D 25-OH 41.0 ng/mL Normal [facility] Comment on above: Performed By: #### V ITAD #### [facility] [address] [address] [address] Santos Mchugh VIT D RANGES SEE BELOW Normal [facility] Comment on above: Result Comment: <20 ng/mL Vit D deficient 20 - <30 ng/mL Vit D insufficient 30 - 100 ng/mL Vit D sufficient >100 ng/mL Potential Toxicity Performed By: #### V ITAD #### [facility] [address] [place] [address] Dr. Santos Mchugh [facility] CARDIAC STRESS/REST INJE CTIONon 03-31-2023 [facility] CARDIAC STRESS/REST INJECTION Patient Name: ADRIEL GIRALDO STUDY: MYOCARDIAL PERFUSION STRESS TEST WITH LEXISCAN Performing facility: [facility], [address] [place] [address], [address] Provider: Lashell Osborn MD PCP: Dr. Sam Perez Supervising provider: Jemima Gastelum MD INDICATION: Abnormal EKG; Pre-operative risk assessment for Right knee scheduled at [facility] on TBD. HISTORY: Gender: M; Age: 72 y/o ; Height: 0 cm; Weight: 131.122246 kg. Abnormal EKG; High Cholesterol; Diabetes; HTN; Denies smoking. COMPARISON: No comparison. ACCESSION NUMBER(S): [id number]; [id number]; [id number] ORDERING CLINICIAN: LASHELL OSBORN TECHNIQUE: ONE DAY [...] comparison. Electronically signed by: JEMIMA GASTELUM MD [facility] No Panel Informationon 03-31 FINAL REPORT Interpreted by: JEMIMA GASTELUM MD 04/01/23 16:28 Patient Name: ADRIEL GIRALDO STUDY: MYOCARDIAL PERFUSION STRESS TEST WITH LEXISCAN Performing facility: [facility], [address] [place] [address] 250 DO Work Phone: renal BIon 02-17-2023 US renal BI [facility] Main [place] [address] [place] [address] Ultrasound Report Signed Patient: Td Giraldo MR#: [id number] : 1950 Acct:[id number] Age/Sex: 72 / M ADM Date: 02/17/23 Loc: Room: Type: [facility] Attending Dr: Tj Solis MD Ordering Provider: [...] Hahn Jr., D.O.02/17/2023 3:27 PM Dictation Location: [employer] Tech: Concha Santiago Transcribed By: MOE 02/17/23 152 Dictated By: Tobias Hahn Jr, DO 02/17/23 1524 Signed By: 02/17/23 152 [facility] Office Visit (Cardiology)on 01-23-2023 Follow-up visit [...] GIRALDO is being seen for POC for [place] Rt Knee. History of Present Illness 72 yo male here for pre-operative cardiac clearance prior to TKA of R knee. Patient has no complaints today including chest pain, VALENZUELA, presyncope/syncope. He is unable to complete > 4 METS due to knee pain. His ECG with incomplete LBBB. Has not had an ischemic evaluation in a few years. [facility] Has a reported hx of CHF [...] TabletTAKE 1.5 TABLET 3 times daily Saw Ladoga 1000 MG Oral CapsuleTAKE DIRECTED. Vitamin D3 [...] Signs Recorded: 23Jan2023 09:16AM Heart Rate63, Apical Vlxbidxe173, LUE, Sitting Jlxhodxav62, LUE, Sitting Height6 ft 2 in Ptsfvj387 lb BMI Hssyklusbj52.75 kg/m2 BSA Calculated2.56 Tobacco Useb) No PHQ-2 [...] Will c (more content not included)... Normal [facility] Tobacco Screening.on 023 Adult depression screening assessment No [facility] 250 DO Work Phone: Fall risk assessment a) No falls within the last year [facility] 250 DO Work Phone: Tobacco use status HS b) No [facility] 250 DO Work Phone: MRI Knee w/o Righton [...] on 01/07/2023 1009 Normal [facility] Office Visit (Cardiology)on 12-26-2022 Follow-up visit Diagnoses/Problems Assessed Cardiomyopathy (425.4) (I42.9) CHF (NYHA class II, ACC/AHA stage C) (428.0) (I50.9) Hyperlipidemia (272.4) (E78.5) Primary hypertension (401.9) (I10) Class 2 obesity with body mass index (BMI) of 37.0 to 37.9 in adult (278.00,V85.37) (E66.9,Z68.37) Obstructive sleep apnea, adult (327.23) (G47.33) Never a smoker Orders Cardiomyopathy IO EKG Electrocardiogram- 12 Lead; Status:Complete; Done: [id number] Cardiomyopathy, Primary hypertension Renew: Carvedilol 12.5 MG [...] For - Scheduling,Retrospec tive Authorization Requested for: [id number] SocHx: Never a smoker Tobacco Use Screening; Status:Complete; Done: 44Hic2408 Patient Instructions Please bring all medicines, vitamins, [...] seen for a consultation for CHF- former [place] [facility]. History of Present Illness 72 yo [...] TabletTAKE 1.5 TABLET 3 times daily Saw Ladoga 1000 MG Oral CapsuleTAKE DIRECTED. Vitamin D3 50 MCG (1999) Oral CapsuleTake 1 capsule twice daily Allergies [...] negative for complaint. Vitals Vital Signs Recorded: 26Dec2022 10:52AMRecorded: 26Dec2022 10:51AM Atntdali803, LUE, Lwvvnul632, RUE, Sitting Uwcwebstq18, LUE, Bhluwks48, RUE, Sitting Heart Rate61, Apical Height6 ft 2 in Frlhzo208 lb BMI Vidnrfvnzv05.75 kg/m2 BSA Calculated2.56 Tobacco Useb) No PHQ-2 [...] current therap (more content not included)... Normal [facility] Tobacco Screening.on 023 Adult depression screening assessment No [facility] 250 DO Work Phone: Fall risk assessment a) No falls within the last year [facility] 250 DO Work Phone: Tobacco use status [facility] b) No [facility] 250 DO Work Phone: Quick Fluon 09-08-2022 FLUAV Ab CF (S) [Titer] Negative [facility] [employer] Other FLUBV Ab CF (S) [Titer] Negative [employer] Other SARS-CoV-2 (COVID-19) RNA NA A+probe Ql (Resp)on 09-08-2022 SARS-CoV-2 (COVID-19) RNA HECTOR+probe Ql (Unsp spec) Positive [employer] Other Auth for Release of Medical Recordson 11-15-2020 Auth for Release of Medical Records [id number] #1.00CD:127 [facility] Formson 09-11-2020 Forms [id number] #1.00CD:127 [facility] Physician Referralon 020 Physician Referral [id number]# 1.00CD:127 [facility] Ambulatory Clinical Summaryo n 09-07-2020 Ambulatory Clinical Summary {[id number]}CD:[id number] [facility] Patient Educationon 09-07-20 20 Patient Education [...] Document Reviewed: 07/07/2008 ExitCare? Patient Information ?2013 [employer]. Erectile Dysfunction Erectile dysfunction (ED) is the [...] Document Reviewed: 02/22/2012 ExitCare? Patient Information ?2013 [employer]. Normal [facility] Urology Office/Clinic Noteon 09-07-2020 Urology [...] use pde5s due to nitro meds. 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 Reviewed UA. There have been no [...] that he has PSA tony at the [place], and states that the levels are normal. SHANELLE was done today and was negative for any nodules. I have reviewed the previous health record information and history for this patient from Dr. Jackson Follow-up With When Contact Information JEAN CLAUDE JARA, Kevin Roberts Only if needed [facility] [address], [place] [address]- [phone] Additional Instructions: Patient Education Benign Prostatic Hyperplasia [...] Dipstick: 2+ (100 mg/dl) (09/07/20 10:27:00) Specific [place] Urine Dipstick: 1.025 (09/07/20 10:27:00) Urine Appearance Urine Dipstick: Clear (09/07/20 10:27:00) Urine Color Urine Dipstick: Yellow (09/07/20 10:27:00) Urobilinogen Urine Dipstick: Normal 0.2-1 EU/dl (09/07/20 10:27:00) pH Urine Dipstick: 5.5 (09/07/20 10:27:00) Normal [facility] Comment on above: Result Comment: Elec tronically Signed By: JEAN CLAUDE JARA, Kevin Roberts\.br\Date and Time Signed: 09/07/20 11:19 EDT\.br\Electronically Co-Signed By: Lashell Kimbrough MA\.br\Date and Time Co-Signed: 09/07/20 11:16 EDT Vital Signs Date Time Vital Sign Value Performing Clinician Facility 01-05-2024 11:58-0500 Body height 185.42 cm MD Jun Perez Work Phone: [facility] 01-05-2024 11:58-0500 Body mass index (BMI) [Ratio] 36.6 kg/m2 MD Jun Perez Work Phone: [facility] 01-05-2024 11:58-0500 Body temperature 96.9 [degF] MD Jun Perez Work Phone: [facility] 01-05-2024 11:58-0500 Body weight 125.7 kg MD Jun Perez Work Phone: [facility] 01-05-2024 11:58-0500 Diastolic blood pressure 77 mm[Hg] MD Jun Perez Work Phone: [facility] 01-05-2024 11:58-0500 Heart rate 55 /min MD Jun Perez Work Phone: [facility] 01-05-2024 11:58-0500 Respiratory rate 18 /min MD Jun Perez Work Phone: [facility] 01-05-2024 11:58-0500 SaO2% (BldA) [Mass fraction] 98 % MD Jun Perez Work Phone: [facility] 01-05-2024 11:58-0500 Systolic blood pressure 131 mm[Hg] MD Jun Perez Work Phone: [facility] 12-31-2023 11:36-0500 Body height 185.42 cm MD Jun Perez Work Phone: [facility] 12-31-2023 11:36-0500 Body mass index (BMI) [Ratio] 36.4 kg/m2 MD Jun Perez Work Phone: [facility] 12-31-2023 11:36-0500 Body weight 125.24 kg MD Jun Perez Work Phone: [facility] 12-31-2023 11:36-0500 Diastolic blood pressure 70 mm[Hg] MD Jun Perez Work Phone: [facility] 12-31-2023 11:36-0500 Heart rate 60 /min MD Jun Perez Work Phone: [facility] 12-31-2023 11:36-0500 Systolic blood pressure 131 mm[Hg] MD Jun Perez Work Phone: [facility] 12-22-2023 10:00-0500 Body height 185.42 cm Tondra Mapus Other [employer] Other 12-22-2023 10:00-0500 Body mass index (BMI) [Ratio] 36.75 kg/m2 Tondra Mapus Other [employer] Other 12-22-2023 10:00-0500 Body weight 126.37 kg Tondra Mapus Other [employer] Other 12-22-2023 10:00-0500 Diastolic blood pressure 76 mm[Hg] Tondra Mapus Other [employer] Other 12-22-2023 10:00-0500 Respiratory rate 18 /min Tondra Mapus Other [employer] Other 12-22-2023 10:00-0500 SaO2% (BldA) [Mass fraction] 98 % Tondra Mapus Other [employer] Other 12-22-2023 10:00-0500 Systolic blood pressure 137 mm[Hg] Duncan Parham Other [facility] [employer] Other 12-14-2023 11:20-0500 Body height 185.42 cm Jose Koromia Other [facility] 12-14-2023 11:20-0500 Body mass index (BMI) [Ratio] 36.94 kg/m2 Jose Koromia Other [facility] [employer] Other 12-14-2023 11:20-0500 Body weight 127.01 kg Jose Koromia Other [facility] [employer] Other 12-14-2023 11:20-0500 Body weight 127 kg MD Jun Perez Work Phone: [facility] 12-14-2023 11:20-0500 Diastolic blood pressure 84 mm[Hg] Jose Koromia Other [facility] 12-14-2023 11:20-0500 Respiratory rate 18 /min Jose Koromia Other [employer] Other 12-14-2023 11:20-0500 SaO2% (BldA) [Mass fraction] 98 % Jose Koromia Other [facility] [employer] Other 12-14-2023 11:20-0500 Systolic blood pressure 156 mm[Hg] Jose Koromia Other [facility] 11-18-2023 11:20-0500 Body height 185.42 cm Jose Koromia Other [facility] 11-18-2023 11:20-0500 Body mass index (BMI) [Ratio] 36.15 kg/m2 Jose Koromia Other [employer] Other 11-18-2023 11:20-0500 Body weight 124.29 kg Jose Adrianaomia Other [employer] Other 11-18-2023 11:20-0500 Body weight 124.28 kg MD Jun Perez Work Phone: [facility] 11-18-2023 11:20-0500 Diastolic blood pressure 70 mm[Hg] Jose Adrianaomia Other [facility] 11-18-2023 11:20-0500 Respiratory rate 18 /min Jose Wrightomia Other [employer] Other 11-18-2023 11:20-0500 SaO2% (BldA) [Mass fraction] 96 % Jose Wrightomia Other [employer] Other 11-18-2023 11:20-0500 Systolic blood pressure 132 mm[Hg] Jose Wrightomia Other [facility] 10-31-2023 12:15-0500 Body height 185.42 cm MD Jun Perez Work Phone: [facility] 10-31-2023 12:15-0500 Body weight 127 kg MD Jun Perez Work Phone: [facility] 10-31-2023 12:15-0500 Diastolic blood pressure 71 mm[Hg] MD Jun Perez Work Phone: [facility] 10-31-2023 12:15-0500 Systolic blood pressure 130 mm[Hg] MD Jun Perez Work Phone: [facility] 10-21-2023 12:17-0500 Diastolic blood pressure 78 mm[Hg] MD Jun Perez Work Phone: [facility] 10-21-2023 12:17-0500 Heart rate 54 /min MD Jun Perez Work Phone: [facility] 10-21-2023 12:17-0500 Respiratory rate 16 /min MD Jun Perez Work Phone: [facility] 10-21-2023 12:17-0500 SaO2% (BldA) [Mass fraction] 98 % MD Jun Perez Work Phone: [facility] 10-21-2023 12:17-0500 Systolic blood pressure 144 mm[Hg] MD Jun Perez Work Phone: [facility] 10-21-2023 10:35-0500 Body height 187.96 cm MD Jun Perez Work Phone: [facility] 10-21-2023 10:35-0500 Body temperature 97.8 [degF] MD Jun Perez Work Phone: [facility] 10-21-2023 10:35-0500 Body weight 121.1 kg MD Jun Perez Work Phone: [facility] 10-15-2023 11:23-0500 Body height 188 cm Britney Yu MD Work Phone: [facility] 10-15-2023 11:23-0500 Body mass index (BMI) [Ratio] 35.31 kg/m2 Britney Yu MD Work Phone: [facility] 10-15-2023 11:23-0500 Body weight 124.74 kg Britney Yu MD Work Phone: [facility] 10-15-2023 11:23-0500 Diastolic blood pressure 82 mm[Hg] Britney Yu MD Work Phone: [facility] 10-15-2023 11:23-0500 Heart rate 64 /min Britney Yu MD Work Phone: [facility] 10-15-2023 11:23-0500 Systolic blood pressure 130 mm[Hg] Britney Yu MD Work Phone: [facility] 09-28-2023 10:32-0500 Body height 188 cm Britney Yu MD Work Phone: [facility] 09-28-2023 10:32-0500 Body mass index (BMI) [Ratio] 36.21 kg/m2 Britney Yu MD Work Phone: [facility] 09-28-2023 10:32-0500 Body weight 127.91 kg Britney Yu MD Work Phone: [facility] 09-28-2023 10:32-0500 Diastolic blood pressure 80 mm[Hg] Britney Yu MD Work Phone: [facility] 09-28-2023 10:32-0500 Heart rate 64 /min Britney Yu MD Work Phone: [facility] 09-28-2023 10:32-0500 Systolic blood pressure 138 mm[Hg] Britney Yu MD Work Phone: [facility] 09-17-2023 09:45-0400 Body height 185.42 cm Tondra Mapus Other [employer] Other 09-17-2023 09:45-0400 Body mass index (BMI) [Ratio] 37.33 kg/m2 Tondra Mapus Other [employer] Other 09-17-2023 09:45-0400 Body weight 128.37 kg Tondra Mapus Other [employer] Other 09-17-2023 09:45-0400 Diastolic blood pressure 68 mm[Hg] Tondra Mapus Other [employer] Other 09-17-2023 09:45-0400 Respiratory rate 18 /min Tondra Mapus Other [employer] Other 09-17-2023 09:45-0400 SaO2% (BldA) [Mass fraction] 96 % Duncan Parham Other [employer] Other 09-17-2023 09:45-0400 Systolic blood pressure 128 mm[Hg] Duncan Parham Other [employer] Other 06-08-2023 11:25-0400 Body height 187.96 cm Jun Perez [facility] 250 DO Work Phone: 06-08-2023 11:25-0400 Body mass index (BMI) [Ratio] 36.72 kg/m2 Jun Perez Work Phone: [facility] 250 DO Work Phone: 06-08-2023 11:25-0400 Body surface area Derived from formula 2.53 m2 Jnu Perez Work Phone: [facility] 250 DO Work Phone: 06-08-2023 11:25-0400 Body weight 129.73 kg Jun Perez Work Phone: [facility] 250 DO Work Phone: 06-08-2023 11:25-0400 Diastolic blood pressure 68 mm[Hg] uJn Perez Work Phone: [facility] 250 DO Work Phone: 06-08-2023 11:25-0400 Heart rate 56 /min Jun Perez Work Phone: [facility] 250 DO Work Phone: 06-08-2023 11:25-0400 Systolic blood pressure 136 mm[Hg] Jun Perez Work Phone: [facility] 250 DO Work Phone: 05-14-2023 10:45-0400 Body height 187.96 cm Jun Perez Work Phone: [facility] 250 DO Work Phone: 05-14-2023 10:45-0400 Body mass index (BMI) [Ratio] 36.85 kg/m2 Jun Perez Work Phone: [facility] 250 DO Work Phone: 05-14-2023 10:45-0400 Body surface area Derived from formula 2.53 m2 Jun Perez Work Phone: [facility] 250 DO Work Phone: 05-14-2023 10:45-0400 Body weight 130.18 kg Jun Perez Work Phone: [facility] 250 DO Work Phone: 05-14-2023 10:45-0400 Diastolic blood pressure 80 mm[Hg] Jun Perez Work Phone: [facility] 250 DO Work Phone: 05-14-2023 10:45-0400 Heart rate 56 /min Jun Perez Work Phone: [facility] 250 DO Work Phone: 05-14-2023 10:45-0400 Systolic blood pressure 128 mm[Hg] Jun Perez Work Phone: [facility] 250 DO Work Phone: 04-17-2023 09:15-0400 Body height 185.42 cm Jun Perez Other [employer] Other 04-17-2023 09:15-0400 Body mass index (BMI) [Ratio] 38.52 kg/m2 Jun Perez Other [employer] Other 04-17-2023 09:15-0400 Body weight 132.45 kg Jun Perez Other [employer] Other 04-17-2023 09:15-0400 Diastolic blood pressure 77 mm[Hg] Jun Perez Other [employer] Other 04-17-2023 09:15-0400 Systolic blood pressure 146 mm[Hg] Jun Perez Other [employer] Other 04-16-2023 11:40-0400 Body height 185.42 cm Tj Mayo Other [employer] Other 04-16-2023 11:40-0400 Body mass index (BMI) [Ratio] 39.14 kg/m2 Tj Mayo Other [employer] Other 04-16-2023 11:40-0400 Body temperature 97.8 [degF] Tj Mayo Other [employer] Other 04-16-2023 11:40-0400 Body weight 134.58 kg Tj Mayo Other [employer] Other 04-16-2023 11:40-0400 Diastolic blood pressure 80 mm[Hg] Tj Mayo Other [employer] Other 04-16-2023 11:40-0400 Respiratory rate 18 /min Tj Mayo Other [employer] Other 04-16-2023 11:40-0400 SaO2% (BldA) [Mass fraction] 97 % Tj Mayo Other [employer] Other 04-16-2023 11:40-0400 Systolic blood pressure 144 mm[Hg] Tj Solis Other [employer] Other 04-10-2023 15:44-0400 Body height 187.96 cm Jun Perez Work Phone: [facility] 250 DO Work Phone: 04-10-2023 15:44-0400 Body mass index (BMI) [Ratio] 25.17 kg/m2 Jun Perez Work Phone: [facility] 250 DO Work Phone: 04-10-2023 15:44-0400 Body surface area Derived from formula 2.15 m2 Jun Perez Work Phone: [facility] 250 DO Work Phone: 04-10-2023 15:44-0400 Body weight 88.91 kg Jun Perez Work Phone: [facility] 250 DO Work Phone: 04-10-2023 15:44-0400 Diastolic blood pressure 72 mm[Hg] Jun Perez Work Phone: [facility] 250 DO Work Phone: 04-10-2023 15:44-0400 Heart rate 64 /min Jun Perez Work Phone: [facility] 250 DO Work Phone: 04-10-2023 15:44-0400 Systolic blood pressure 126 mm[Hg] Jun Perez Work Phone: [facility] 250 DO Work Phone: 02-17-2023 12:15-0400 Body height 185.42 cm Jun Perez Other [employer] Other 02-17-2023 12:15-0400 Body mass index (BMI) [Ratio] 38.39 kg/m2 Jun Perez Other [employer] Other 02-17-2023 12:15-0400 Body temperature 98.6 [degF] Jun Perez Other [employer] Other 02-17-2023 12:15-0400 Body weight 132 kg Jun Perez Other [employer] Other 02-17-2023 12:15-0400 Diastolic blood pressure 82 mm[Hg] Jun Perez Other [employer] Other 02-17-2023 12:15-0400 SaO2% (BldA) [Mass fraction] 97 % Jun Perez Other [employer] Other 02-17-2023 12:15-0400 Systolic blood pressure 122 mm[Hg] Jun Perez Other [employer] Other 02-04-2023 16:40-0400 Body height 185.42 cm Tj Mayo Other [employer] Other 02-04-2023 16:40-0400 Body mass index (BMI) [Ratio] 38.28 kg/m2 Tj Mayo Other [employer] Other 02-04-2023 16:40-0400 Body weight 131.63 kg Tj Mayo Other [employer] Other 02-04-2023 16:40-0400 Diastolic blood pressure 96 mm[Hg] Tj Mayo Other [employer] Other 02-04-2023 16:40-0400 Respiratory rate 18 /min Tj Mayo Other [employer] Other 02-04-2023 16:40-0400 SaO2% (BldA) [Mass fraction] 98 % Tj Mayo Other [employer] Other 02-04-2023 16:40-0400 Systolic blood pressure 164 mm[Hg] Tj Mayo Other [employer] Other 01-23-2023 09:16-0500 Body height 187.96 cm Jun Perez Work Phone: [facility] 250 DO Work Phone: 01-23-2023 09:16-0500 Body mass index (BMI) [Ratio] 37.75 kg/m2 Jun Perez Work Phone: [facility] 250 DO Work Phone: 01-23-2023 09:16-0500 Body surface area Derived from formula 2.56 m2 Jun Perez Work Phone: [facility] 250 DO Work Phone: 01-23-2023 09:16-0500 Body weight 133.36 kg Jun Perez Work Phone: [facility] 250 DO Work Phone: 01-23-2023 09:16-0500 Diastolic blood pressure 82 mm[Hg] Jun Perez Work Phone: [facility] 250 DO Work Phone: 01-23-2023 09:16-0500 Heart rate 63 /min Jun Perez Work Phone: [facility] 250 DO Work Phone: 01-23-2023 09:16-0500 Systolic blood pressure 136 mm[Hg] Jun Perez Work Phone: [facility] 250 DO Work Phone: 12-26-2022 10:52-0500 Diastolic blood pressure 80 mm[Hg] Jun Perez Work Phone: [facility] 250 DO Work Phone: 12-26-2022 10:52-0500 Systolic blood pressure 148 mm[Hg] Jun Perez Work Phone: [facility] 250 DO Work Phone: 12-26-2022 10:51-0500 Body height 187.96 cm Jun Perez Work Phone: [facility] 250 DO Work Phone: 12-26-2022 10:51-0500 Body mass index (BMI) [Ratio] 37.75 kg/m2 Jun Perez Work Phone: [facility] 250 DO Work Phone: 12-26-2022 10:51-0500 Body surface area Derived from formula 2.56 m2 Jun Perez Work Phone: [facility] 250 DO Work Phone: 12-26-2022 10:51-0500 Body weight 133.36 kg Jun Perez Work Phone: [facility] 250 DO Work Phone: 12-26-2022 10:51-0500 Diastolic blood pressure 80 mm[Hg] Jun Perez Work Phone: [facility] 250 DO Work Phone: 12-26-2022 10:51-0500 Heart rate 61 /min Jun Perez Work Phone: [facility] 250 DO Work Phone: 12-26-2022 10:51-0500 Systolic blood pressure 146 mm[Hg] Jun Perez Work Phone: [facility] 250 DO Work Phone: 12-01-2022 16:00-0500 Body height 185.42 cm Jun Perez Other [employer] Other 12-01-2022 16:00-0500 Body mass index (BMI) [Ratio] 38.92 kg/m2 Jun Perez Other [employer] Other 12-01-2022 16:00-0500 Body weight 133.81 kg Jun Perez Other [employer] Other 12-01-2022 16:00-0500 Diastolic blood pressure 80 mm[Hg] Jun Perez Other [employer] Other 12-01-2022 16:00-0500 SaO2% (BldA) [Mass fraction] 98 % Jun Perez Other [employer] Other 12-01-2022 16:00-0500 Systolic blood pressure 140 mm[Hg] Jun Perez Other [employer] Other 11-20-2022 10:30-0500 Body height 187.96 cm Edie Morse Other [employer] Other 11-20-2022 10:30-0500 Body mass index (BMI) [Ratio] 37.61 kg/m2 Edie Morse Other [employer] Other 11-20-2022 10:30-0500 Body weight 132.9 kg Edie Schmidtr Other [employer] Other 11-20-2022 10:30-0500 Diastolic blood pressure 79 mm[Hg] Edie Myerskylee Other [employer] Other 11-20-2022 10:30-0500 Respiratory rate 20 /min Edie Myerskylee Other [employer] Other 11-20-2022 10:30-0500 SaO2% (BldA) [Mass fraction] 98 % Edie Schmidtvincent Other [employer] Other 11-20-2022 10:30-0500 Systolic blood pressure 146 mm[Hg] Edie Myerskylee Other [employer] Other 09-08-2022 10:15-0400 Body height 187.96 cm Phyllis Yoomond Other [employer] Other 09-08-2022 10:15-0400 Body mass index (BMI) [Ratio] 36.59 kg/m2 Phyllis Yoomond Other [employer] Other 09-08-2022 10:15-0400 Body temperature 97.6 [degF] Phyllis Yoomond Other [employer] Other 09-08-2022 10:15-0400 Body weight 129.28 kg Phyllis Yoomond Other [employer] Other 09-08-2022 10:15-0400 Diastolic blood pressure 59 mm[Hg] Phyllis Amy Other [employer] Other 09-08-2022 10:15-0400 Respiratory rate 18 /min Phyllis Amy Other [employer] Other 09-08-2022 10:15-0400 SaO2% (BldA) [Mass fraction] 97 % Phyllis Amy Other [employer] Other 09-08-2022 10:15-0400 Systolic blood pressure 112 mm[Hg] Phyllis Amy Other [employer] Other 05-25-2022 13:35-0400 Body height 187.96 cm Phyllis Amy Other [employer] Other 05-25-2022 13:35-0400 Body mass index (BMI) [Ratio] 37.23 kg/m2 Phyllis Amy Other [employer] Other 05-25-2022 13:35-0400 Body temperature 97.4 [degF] Phyllis Amy Other [employer] Other 05-25-2022 13:35-0400 Body weight 131.54 kg Phyllis Amy Other [employer] Other 05-25-2022 13:35-0400 Diastolic blood pressure 82 mm[Hg] Phyllis Amy Other [employer] Other 05-25-2022 13:35-0400 Respiratory rate 18 /min Phyllis Amy Other [employer] Other 05-25-2022 13:35-0400 SaO2% (BldA) [Mass fraction] 96 % Phyllis Amy Other [employer] Other 05-25-2022 13:35-0400 Systolic blood pressure 142 mm[Hg] Phyllis Reyes Other [facility] [employer] Other 04-30-2022 11:00-0400 Body height Mary Bryson Other [employer] Other 04-30-2022 11:00-0400 Body mass index (BMI) [Ratio] 37.23 kg/m2 Mary Bryson Other [employer] Other 04-30-2022 11:00-0400 Body weight 131.54 kg Mary Bryson Other [employer] Other Encounters Encounter Date Encounter Type Care Provider Facility Start: 01-05-2024 End: 01-05-2024 ambulatory MD Jun Perez Work Phone: [facility] Work Phone: Start: 01-05-2024 End: 01-05-2024 Patient encounter procedure MD Jun Perez Work Phone: [facility] Work Phone: Start: 01-04-2024 Non-patient / Non-visit MD Xochitl Perez Work Phone: [facility] Work Phone: Start: 12-31-2023 End: 12-31-2023 ambulatory MD Jun Perez Work Phone: [facility] Work Phone: Start: 12-31-2023 End: 12-31-2023 Patient encounter procedure MD Jun Perez Work Phone: [facility] Work Phone: Start: 12-22-2023 (DM) Diabetes Duncan Parham [facility] Start: 12-22-2023 End: 12-22-2023 ambulatory Jun Perez Facility:[facility] Start: 12-22-2023 Registered Recurring MD Jun Perez Work Phone: [facility] Work Phone: Start: 12-14-2023 End: 12-14-2023 ambulatory Jose Wrightomia Other [employer] Other Start: 12-14-2023 Office outpatient vi sit 25 minutes Jose Koromia [facility] Start: 12-14-2023 Telephone encounter Jose Caria [facility] Start: 12-14-2023 End: 12-14-2023 Patient encounter procedure MD Jun Perez Work Phone: [facility]- Start: 11-20-2023 Patient encounter procedure MD Jun Perez Work Phone: [facility]- Start: 11-19-2023 End: 11-19-2023 ambulatory Jun Perez Other [employer] Other Start: 11-19-2023 Office outpatient vi sit 15 minutes Jun Perez [facility] Start: 11-19-2023 Telephone encounter Tj Solis [facility] Prisoner Classification Interviewer Start: 11-18-2023 End: 11-18-2023 ambulatory Jose Wrightomia Other [employer] Other Start: 11-18-2023 Office outpatient ne w 45 minutes Jose Koromia [facility] Start: 11-18-2023 End: 11-18-2023 Patient encounter procedure MD Jun Perez Work Phone: [facility] Work Phone: Start: 11-05-2023 End: 11-05-2023 ambulatory Britney Yu Facility:[facility] Start: 11-05-2023 End: 11-05-2023 ambulatory MD Jun Perez Work Phone: [facility] Work Phone: Start: 11-05-2023 End: 11-05-2023 Patient encounter procedure MD Jun Perez Work Phone: [facility] [place] Work Phone: Start: 11-04-2023 End: 11-04-2023 ambulatory Duncan Parham Other [facility] [employer] Other Start: 11-04-2023 Telephone encounter Duncan Parham [facility] Start: 10-31-2023 End: 10-31-2023 Patient encounter procedure MD Jun Perez Work Phone: [facility] Work Phone: Start: 10-26-2023 End: 10-26-2023 ambulatory Jun Perez Facility:[facility] Start: 10-26-2023 End: 10-26-2023 ambulatory MD Jun Perez Work Phone: [facility] Work Phone: Start: 10-26-2023 End: 10-26-2023 Patient encounter procedure MD Jun Perez Work Phone: [facility] [place] Work Phone: Start: 10-21-2023 End: 10-21-2023 ambulatory Jun Perez Facility:[facility] Start: 10-21-2023 End: 10-21-2023 Admission to same day surgery center MD Jun Perez Work Phone: [facility] Work Phone: Start: 10-21-2023 End: 10-21-2023 ambulatory MD Jun Perez Work Phone: [facility] Work Phone: Start: 10-15-2023 End: 10-15-2023 ambulatory [facility] Start: 10-15-2023 End: 10-15-2023 Office outpatient visit 25 minutes Britney Yu MD Work Phone: [facility] Comment on above: CHF (congestive hear t failure), NYHA class II, acute on chronic, combined ([facility]/HCC); Primary hypertension; Nonischemic cardiomyopathy (CMS/HCC); Medication course changed; Hypertensive heart and CKD, 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); Mixed hyperlipidemia; Diabetes mellitus with kidney disease (CMS/HCC) Start: 09-28-2023 Telephone encounter Nancy MOSQUEDA Neph[facility] Start: 09-28-2023 End: 09-28-2023 ambulatory BRITNEY YU [facility] [employer] Other Start: 09-28-2023 End: 09-28-2023 Office outpatient visit 25 minutes Britney Yu MD Work Phone: [facility] Comment on above: Personality disorder (CMS/HCC) (Primary Dx); Obesity, morbid (CMS/HCC); Hypertensive heart and CKD, 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); CHF (congestive heart failure), NYHA class II, acute on chronic, combined (CMS/HCC); Diabetes mellitus with kidney disease (CMS/HCC); Mixed hyperlipidemia; Primary hypertension; Medication course changed Start: 09-25-2023 Patient encounter status Luis Yu MD Work Phone: [facility] Work Phone: Start: 09-17-2023 (DM) Diabetes [facility] Start: 09-17-2023 Telephone encounter Nancy MOSQUEDA Nephrology Start: 09-17-2023 End: 09-17-2023 ambulatory MD Jun Perez Work Phone: [facility] [employer] Other Start: 09-17-2023 End: 09-17-2023 Patient encounter procedure MD Jun Perez Work Phone: [facility] [place] Work Phone: Start: 09-17-2023 Registered Recurring MD Jun Perez Work Phone: [facility] Work Phone: Start: 09-15-2023 End: 09-15-2023 ambulatory Rodney Victor Other [employer] Other Start: 09-15-2023 Telephone encounter Rodney Victor [facility] Prisoner Classification Interviewer Start: 08-17-2023 End: 08-17-2023 ambulatory CAROLEE GONZALEZ Facility:[facility] Start: 06-08-2023 Office outpatient vi sit 25 minutes Jun Perez [facility] Work Phone: Start: 05-14-2023 Office outpatient vi sit 25 minutes Jun Perez [facility] Work Phone: Start: 05-14-[address] Jun Perez Facility: Start: 05-06-2023 End: 05-07-2023 ambulatory Ritchie Eduardorenee Desai Facility:[facility] Start: 05-01-2023 End: 05-01-2023 ambulatory Jun Perez Other [employer] Other Start: 05-01-2023 Telephone encounter Jun Perez [facility] Start: 04-27-2023 ambulatory Odilia Mackenzie Facility:[id number] Start: 04-17-2023 End: 04-17-2023 ambulatory Jun Perez Other [employer] Other Start: 04-17-2023 Office outpatient vi sit 25 minutes Jun Perez [facility] Start: 04-16-2023 End: 04-16-2023 ambulatory Tj Mayo Other [employer] Other Start: 04-16-2023 Office outpatient vi sit 25 minutes Tj Mayo [facility] [place] Start: 04-10-2023 Office outpatient vi sit 25 minutes Jun Perez [facility] Work Phone: Start: 04-10-2023 Patient encounter procedure Jun Perez Work Phone: [facility] 250 DO Work Phone: Start: 04-10-[address] Jun Perez Facility:[id number] Start: 04-10-2023 End: 04-11-2023 ambulatory TJ MAYO Facility: Start: 04-01-[address] Lashell Betancourt ty:[id number] Start: 03-31-2023 Encounter for preprocedural cardiovascular examination Dr. Lashell Osborn [facility] Start: 03-31-[address] Lashell Betancourt ty:[id number] Start: 03-31-2023 Encounter for preprocedural cardiovascular examination Dr. Lashell Osborn [facility] Start: 03-09-2023 End: 03-09-2023 ambulatory Tj Mayo Other [employer] Other Start: 03-09-2023 Telephone encounter Tj Mayo [facility] Start: 02-17-2023 End: 02-17-2023 ambulatory Tj Mayo [facility] [employer] Other Start: 02-17-2023 Office outpatient vi sit 15 minutes Jun Perez [facility] Start: 02-06-2023 End: 02-06-2023 ambulatory Tj Mayo Other [employer] Other Start: 02-06-2023 Telephone encounter Tj Mayo [facility] Prisoner Classification Interviewer Start: 02-04-2023 End: 02-04-2023 ambulatory Tj Mayo Other [employer] Other Start: 02-04-2023 Office outpatient ne w 45 minutes Tj Mayo [facility] Start: 02-04-2023 Telephone encounter Tj Mayo [facility] Start: 01-23-2023 Office outpatient vi sit 25 minutes Jun Perez Work Phone: [facility] 250 DO Work Phone: Start: 01-23-[address] Jun Perez Facility: Start: 12-29-2022 End: 12-29-2022 ambulatory Jun Perez Other [employer] Other Start: 12-29-2022 Telephone encounter Jun Perez [facility] Start: 12-26-2022 Office outpatient ne w 45 minutes Jun Perez Work Phone: [facility] 250 DO Work Phone: Start: 12-26-[address] Malika Ptael Facility: Start: 12-02-2022 End: 12-02-2022 ambulatory Jun Perez Other [employer] Other Start: 12-02-2022 Telephone encounter Jun Perez [facility] Start: 12-01-2022 End: 12-01-2022 ambulatory Jun Perez Other [employer] Other Start: 12-01-2022 Office outpatient ne w 60 minutes Jun Perez [facility] Start: 11-25-2022 End: 11-25-2022 ambulatory Edie Morse Other [employer] Other Start: 11-25-2022 Telephone encounter Edie azar [facility] Prisoner Classification Interviewer Start: 11-20-2022 End: 11-20-2022 ambulatory Edie Morse Other [employer] Other Start: 11-20-2022 Office outpatient ne w 30 minutes Edie Morse [facility] Start: 09-08-2022 End: 09-08-2022 ambulatory Phyllis Reyes Other [employer] Other Start: 09-08-2022 Office outpatient vi sit 15 minutes Phyllis Amy [facility] [place] Start: 05-25-2022 End: 05-25-2022 ambulatory Phyllis Amy Other [employer] Other Start: 05-25-2022 Office outpatient vi sit 15 minutes Phyllis Amy [facility] [place] Start: 04-30-2022 End: 04-30-2022 ambulatory Mary Bryson Other [employer] Other Start: 04-30-2022 Office outpatient vi sit 25 minutes Maryloren Bryson [facility] Start: 03-13-2013 End: 03-14-2013 Emergency department patient visit NO REFERRING DR Facility:[facility] Patient encounter status Jun Perez Work Phone: [facility] 250 DO Work Phone: Procedures Date Procedure [...] procedure 03/28/2024 10:45 AM EDT Office Visit [facility] [address] [facility] [address] [place] [address] Britney Yu MD [address] [facility] [address] [place] [address] [facility] Start: 10-29-2023 End: 10-15-2024 Basic metabolic 2000 panel - Serum or Plasma Basic Metabolic Panel Lab Routine CHF (congestive heart failure), NYHA class II, acute on chronic, combined (CMS/HCC) Nonischemic cardiomyopathy (CMS/HCC) Medication course changed Expected: 10/29/2023 (Approximate), Expires: 10/15/2024 [facility] Service Area Work Phone: Comment on above: Expected: 10/29/2023 (Approximate), Expires: 10/15/2024 Start: 10-22-2023 End: 10-15-2024 Basic metabolic 2000 panel - Serum or Plasma Basic Metabolic Panel Lab Routine CHF (congestive heart failure), NYHA class II, acute on chronic, combined (CMS/HCC) Nonischemic cardiomyopathy (CMS/HCC) Medication course changed Expected: 10/22/2023 (Approximate), Expires: 10/15/2024 [facility] Work Phone: Comment on above: Expected: 10/22/2023 (Approximate), Expires: 10/15/2024 Start: 10-21-2023 [facility] Start: 10-15-2023 End: 10-15-2023 Patient encounter procedure 10/15/2023 10:45 AM EST Office Visit [facility] [address] [facility] [address] [place] [address] Britney Yu MD [address] [facility] [address] [place], [place] [id number] [facility] Start: 10-05-2023 End: 09-28-2024 Basic metabolic 2000 panel - Serum or Plasma Basic Metabolic Panel Lab Routine Hypertensive heart and CKD, 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) CHF (congestive heart failure), NYHA class II, acute on chronic, combined (CMS/HCC) Diabetes mellitus with kidney disease (CMS/HCC) Expected: 10/05/2023 (Approximate), Expires: 09/28/2024 [facility] Service Area Work Phone: Comment on above: Expected: 10/05/2023 (Approximate), Expires: 09/28/2024 Start: 09-28-2023 FUV, Provider: Britney Yu, Status: Pen, Time: 10:15 AM FUV, Provider: Britney Yu, Status: Pen, Time: 10:15 AM [facility] 250 DO Work Phone: Start: 07-22-2023 FUV, Provider: Odilia Olsen, Status: Pen, Time: 10:00 AM FUV, Provider: Odilia Olsen, Status: Pen, Time: 10:00 AM [facility] 250 DO Work Phone: Start: 07-17-2023 Influenza vaccination Influenza Vacc ine (#1) [facility] Start: 06-26-2023 FUV, Provider: Lashell Osborn, Status: Pen, Time: 10:30 AM FUV, Provider: Lashell Osborn, Status: Pen, Time: 10:30 AM [facility] 250 DO Work Phone: Start: 06-22-2023 FUV, Provider: Britney Yu, Status: Pen, Time: 11:00 AM FUV, Provider: Britney Yu, Status: Pen, Time: 11:00 AM [facility] 250 DO Work Phone: Start: 06-08-2023 FUV, Provider: Briteny Yu, Status: Pen, Time: 11:30 AM FUV, Provider: Britney Yu, Status: Pen, Time: 11:30 AM [facility] 250 DO Work Phone: Start: 05-14-2023 FUV, Provider: Britney Yu, Status: Pen, Time: 11:00 AM FUV, Provider: Britney Yu, Status: Pen, Time: 11:00 AM [facility] Work Phone: Start: 04-27-2023 MUGA, Provider: ANGEL LYLEI NUCLEAR 01,[id number], Status: Pen, Time: 2:30 PM MUGA, Provider: MILAGROS LIZ NUCLEAR 01,[id number], Status: Pen, Time: 2:[address] [facility] 250 DO Work Phone: Start: 02-24-2023 REST ONLY, Provider: MILAGROS LYLEI NUCLEAR 01,[id number], Status: Pen, Time: 12:30 PM REST ONLY, Provider: MILAGROS LIZ NUCLEAR 01,[id number], Status: Pen, Time: 12:30 PM [facility] 250 DO Work Phone: Start: 02-19-2023 STRESSNUC2, Provider : MILAGROS LIZ NUCLEAR 01,[id number], Status: Pen, Time: 12:30 PM STRESSNUC2, Provider: MILAGROS LIZ NUCLEAR 01,[id number], Status: Pen, Time: 12:30 PM [facility] DO Work Phone: Start: 02-21-2022 COVID-19 Vaccine (2 - Pfizer series) COVID-19 Vaccine (2 - Pfizer series) [facility] Start: 2000 Zoster Vaccines (1 of 2) Zoste r Vaccines (1 of 2) [facility] Start: 1972 DTaP/Tdap/Td Vaccine s (1 - Tdap) DTaP/Tdap/Td Vaccines (1 - Tdap) [facility] Start: 1969 Urine screening for protein Diabetes: Urine Protein Screening [facility] Start: 1968 Hepatitis C [facility] Start: 1960 Diabetic foot examination Diabetes: Foot Exam [facility] Start: 1960 Glaucoma screening Diabetes: R etinopathy Screening [facility] Start: 1956 Pneumococcal Vaccine : 65+ Years (1 - PCV) Pneumococcal Vaccine: 65+ Years (1 - PCV) [facility] Start: 1950 Creatinine measurement Creatinine Le campos [facility] Start: 1950 Echocardiography Echocardiogram [facility] Start: 1950 Hemoglobin A1c measurement Rosa betes: Hemoglobin A1C [facility] Start: 1950 Lipid panel Lipid Panel [facility] Start: 1950 Medicare Annual Well ness Visit Medicare Annual Wellness Visit (AWV) [facility] Start: 1950 Potassium measurement Potassium Leve l [facility] Start: 1950 Screening for malign ant neoplasm of colon [facility] Patient Education Colon Polypectomy (DC) [facility] Work Phone: Renal function 2000 panel - Serum or Plasma [facility] Payers Date Payer Category Payer Self-pay [id number] 2022 Medicare HU[employer]NA MEDICARE [employer] GOLD CHOICE [id number] 2022-Present [address] [address] [place] [address] [id number] 1959 Medicare [id number] 1950 Unknown [id number] [id number] 1950 Unknown [id number] 2.16.840.1.485757.3.579.2.356 1950 Unknown [id number] 2.16.840.1.908043.3.579.2.356 1950 Unknown [id number] 2.16.840.1.669415.3.579.2.356 1950 Unknown [id number] 2.16.840.1.680183.3.579.2.356 1950 Unknown [id number] 2.16.840.1.872708.3.579.2.1068 1950 Unknown [id number] 2.16.840.1.456730.3.579.2.1068 1950 Unknown [id number] 2.16.840.1.221304.3.579.2.1068 1950 Unknown [id number] 2.16.840.1.163974.3.579.2.718 1950 Unknown [id number] 2.16.840.1.630575.3.579.2.718 1950 Unknown [id number] 2.16.840.1.481471.3.579.2.1244 1950 Unknown [id number] 2.16.840.1.645306.3.579.2.1244 Medicare [id number] 2.16.840.1.322209.19 Medicare [id number] 2.16 [id number] Medicare Medicare [id number] Unknown [id number] Unknown [id number] 2.16. [id number] Unknown [employer] GOLD CHOICE Unknown [id number] 2.16.840.1.346118.3.579.2.531 Unknown [id number] 2.16.840.1.069427.3.579.2.531 Unknown [id number] 2.16.840.1.347221.3.579.2.531 Unknown [id number] 2.16.840.1.252643.3.579.2.531 Unknown [id number] 2.16840.1.452497.3.579.2.531 Unknown [id number] 2.16840.1.479713.3.579.2.531 Social History Date Type Detail Facility Start: 09-28-2023 End: 10-15-2023 Sex Assigned At [facility] Other Start: 09-28-2023 End: 10-15-2023 No alcohol use No alcohol use [place] [address] DO Work Phone: Start: 04-10-2021 End: 01-05-2024 Tobacco smoking status NHIS Never smoked tobacco (finding) [facility] Start: 1950 Sex Assigned At Male F [facility] Start: 09-25-2023 Tobacco use and exposure Smokeless tobacco non-user [facility] Work Phone: Start: 09-28-2023 End: 10-15-2023 Alcohol intake Lifetime non-drinker (finding) [facility] Work Phone: Start: 1950 Sex Assigned At Not on file [facility] Work Phone: Start: 09-18-2023 End: 10-15-2023 Exposure to SARS-CoV-2 (event) Not sure [facility] Goals Date Patient Goal Desired Activity /State [...] or diabetes medication issues. 6. Prescriptions: [facility] [place]- carmelita 3 cgm sent. 7. 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 [facility] with [facility] in the past was negative for obstructive CAD. NYHA 2, ACC B.# HTN# DM - Diabetes is managed at the [facility] diabetes center. # CKD - BMP 11/05/23 sCr 1.66 BUN 43. 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 # Obesity - Has lost > 30 lbs in the last year which has helped his HTN and BP control.PCP: Dr. Zi Parham ([facility] [place]), Dr. Gracia Perez (in [place]) Nuclear MPI in 2022 at [facility] - EF 31%. No ischemia or infarct.Echo in 2022 at [facility] - EF 25-30%MUGA done 04/27/23 at [facility] - EF 27%. EKG 03/27/21 - NSR 63 bpm, 1st degree AVB, iLBBB. EKG 11/18/23 in clinic - NSR 67 bpm, 1st degree AVB, IVCD, nonspecific T wave abnormalities. - BP elevated here today. But pt says his BP at home is 120/70s. See regimen changes below.- GDMT: Prior notes from Dr. Yu ([facility]) say he didn't tolerate Entresto due to [...] 1 month with BMP before that visit. [employer] Other 01-29-2024 Evaluation note* Encounter Date Diagnosis Assessment Notes Treatment Notes Treatment Clinical Notes Nov, Type 2 diabetes mellitus with other diabetic kidney complication, without long-term current use of insulin (ICD-10 - E11.29) Nov, Chronic congestive heart failure, unspecified heart failure type (ICD-10 - I50.9) Nov, CKD (chronic kidney disease) stage 2, GFR 60-89 ml/min (ICD-10 - N18.2) [employer] Other 01-04-2024 Evaluation note* Encounter Date Diagnosis [...] verbalized understanding and agreement with treatment plan. [employer] Other 01-03-2024 Evaluation note* Encounter Date Diagnosis [...] 2, ACC B. Had a LHC with [facility] in the past that was negative. 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 # Obesity - Has lost > 30 lbs in the last year which has helped his HTN and BP control.PCP: Dr. Zi Parham ([facility]), Dr. Gracia Perez (in [place]) Nuclear MPI in 2022 at [facility] - EF 31%.Echo in 2022 at [facility] - EF 25-30%MUGA done 04/27/23 at [facility] - EF 27%. EKG 03/27/21 - NSR 63 bpm, 1st degree AVB, iLBBB. EKG 11/18/23 in clinic - NSR 67 bpm, 1st degree AVB, IVCD, nonspecific T wave abnormalities. -I reviewed his last [address] Britney Yu at [facility].- GDMT: Says that he didn't tolerate Entresto [...] 1 month with BMP before that visit. [employer] Other [facility] History of Present illness Narrative* Britney Yu [...] Problem List Diagnosis Date Noted Nonischemic cardiomyopathy ([facility]/HCC) 10/15/2023 Obesity, morbid ([facility]) 09/28/2023 Abnormal EKG 09/25/2023 Cardiomyopathy ([facility]/HCC) 09/25/2023 CHF (congestive heart failure), NYHA class II, acute on chronic, combined ([facility]) 09/25/2023 Diabetes mellitus with kidney disease ([facility]) 09/25/2023 First degree atrioventricular block [...] months Britney [facility] Work Phone: [phone]) 803-800811-30-2023 Instructions* Patient Instructions* Eric Corcoran MA - [...] Fall Prevention Education Given [facility] Work Phone: [phone]) 521-636511-13-2023 History of Present illness Narrative* Britney Yu [...] Diagnosis Date Noted Abnormal EKG 09/25/2023 Cardiomyopathy ([facility]) 09/25/2023 CHF (congestive heart failure), NYHA class II, acute on chronic, combined ([facility]) 09/25/2023 Diabetes mellitus with kidney disease ([facility]) 09/25/2023 First degree atrioventricular block 09/25/2023 Hyperlipidemia 09/25/2023 Hypertensive heart and CKD, ESRD on dialysis ([facility]) 09/25/2023 Medication course changed 09/25/2023 Obstructive sleep apnea, adult 09/25/2023 Personal history of COVID-19 09/25/2023 Pre-operative cardiovascular examination 09/25/2023 Primary hypertension 09/25/2023 Type 2 diabetes mellitus without complication ([facility]) 09/25/2023 Assessment: Patient does not appear euvolemic Patient has chronic systolic left heart failure functional class II Patient has diabetes without hypoglycemia with kidney disease Test results were reviewed. Recommendations: 1. Continue Entresto if affordable otherwise go back to hydralazine 2. Follow-up as scheduled Follow up : 6 months Britney Yu MD documented in this [facility] Work Phone: [phone]) [phone] Instructions* Patient Instructions* Davis Riggs MA - [...] time of your visit. [facility] Work Phone: [phone]) 563-596911-02-2023 Evaluation note* Encounter Date Diagnosis Assessment Notes Treatment Notes Treatment Clinical Notes Sep, Dietary counseling and surveillance (ICD-10 - Z71.3) see above Sep, Type 2 diabetes mellitus with diabetic chronic kidney disease (ICD-10 - E11.22) 1. Controlled, a Type 2 diabetes with A1c of 6.7% 09/07/23 2. Blood glucose levels according to [employer] 3 cgm download 09/04/23-09/17/23: Avg glucose 148. [...] or diabetes medication issues. 6. Prescriptions: [facility] [place]/carmelita 3 cgm sent 09/17/23. Sample carmelita 3 [...] spent on education with Aleah DAVIS, RN. [employer] Other 06-02-2023 Evaluation note* Encounter Date Diagnosis Assessment Notes Treatment Notes Treatment Clinical Notes Apr, Type 2 diabetes mellitus with hyperglycemia, without long-term current use of insulin (ICD-10 - E11.65) Handwrote referral for diabetes and MNT through [facility]. Discussed switching from glipizide to ozempic. He prefers to wait at this time. Apr, Chronic congestive heart failure, unspecified heart failure type (ICD-10 - I50.9) Advised he complete the MUGA and adequately discuss symptoms with his Torch Operator. He discussed that he does not have chest pain, dyspnea or significant edema. He has researched his EF and echo results. He does not feel that his symptoms are significant enough to proceed w pacer or defibrillator. Followup w Cardiology. Apr, Chronic kidney disease, stage III (moderate) (ICD-10 - N18.30) Reviewed notes and advised he follow Dr. Solis's recommendations. [employer] Other 06-01-2023 Evaluation note* Encounter Date Diagnosis [...] check iron studies B12 and folate level. [employer] Other 04-04-2023 Evaluation note* Encounter Date Diagnosis Assessment Notes Treatment Notes Treatment Clinical Notes Feb, Bronchitis (ICD-10 - J40) Bronchitis suspected due to wheezes, chest tightness, cough and/or impaired air movement. Medication prescribed. Avoid extreme heat and cold as this may exacerbate inflammation of airways. If wheezing, chest tightness and/or SOB occurs, go to ER. [employer] Other 03-22-2023 Evaluation note* Encounter Date Diagnosis [...] do a work-up to rule it out. [employer] Other 02-13-2023 Evaluation note* Encounter Date Diagnosis Assessment Notes Treatment Notes Treatment Clinical Notes Dec, Type 2 diabetes mellitus with other diabetic kidney complication, without long-term current use of insulin (ICD-10 - E11.29) Dec, Neuropathy of left lower extremity (ICD-10 - G57.92) [employer] Other 01-16-2023 Evaluation note* Encounter Date Diagnosis [...] Nov, Precancerous skin lesion (ICD-10 - L98.9) [employer] Other 01-05-2023 Evaluation note* Encounter Date Diagnosis [...] understanding and is agreeable to treatment plan. [employer] Other 10-24-2022 Evaluation note* Encounter Date Diagnosis [...] the ER for worsening symptoms or concerns. [employer] Other 07-10-2022 Evaluation note* Encounter Date Diagnosis Assessment Notes Treatment Notes Treatment Clinical Notes May, Hordeolum externum of right lower eyelid (ICD-10 - H00.012) [employer] home care material was printed Use the eye ointment as prescribed. Apply warm compresses to your eye 2-3 times a day. Follow-up with your eye doctor if no improvement in 3 to 4 days. [employer] Other 06-15-2022 Evaluation note* Encounter Date Diagnosis [...] pain of right knee (ICD-10 - M25.561) [employer] Other 09-01-2020 History of Present illness Narrative* [...] Patient is no longer receiving care from [facility]: Transferred care to [facility] with new patient assessment by Dr. Osborn [...] January, there has been further prolongation of WI interval and mild elongation of QRS duration. [...] 6. Will be a great candidate for [employer] Jardiance, will discuss at next visit [facility] [address] DO Work Phone: 1(623) 626-235109-01-2020 History of Present illness Narrative* Patient was [...] Patient is no longer receiving care from [facility]: Transferred care to [facility] with new patient assessment by Dr. Osborn [...] January, there has been further prolongation of WI interval and mild elongation of QRS duration. [...] 6. Will be a great candidate for [facility] Jardiance, will discuss at next visit [facility] [employer] DO Work Phone: 1(671) 993-757003-10-2013 History of Present illness Narrative* 72 yo [...] on his current medications. No complaints today. [facility] [employer] DO Work Phone: [phone]) 443-450802-10-2013 History of Present illness [id number] yo male here to establish care. Has a reported hx of CHF 10 years ago but states his EF has since recovered. He endorses weekly exercise (5x per week) with no issues. State's he very active. No chest pain, palpitations, presyncope/syncope, LE edema, PND, orthopnea. Checks his BP daily and statesits well-controlled on his current medications. No complaints today.[facility] [employer] [address] DO Work Phone: Chief complaint Narrative - ReportedPHILLSUSANNE GIRALDO is being seen for a consultation for CHF- former [place] cardiology.[facility] [employer] DO Work Phone: Evaluation noteNo InformationNosoutheast [facility]ouri hospital [employer] Other Evaluation noteNo assessment information available [facility] Work Phone: Evaluation note* Diagnosis Personality disorder ([facility]/HCC)- Primary Unspecified personality disorder Obesity, morbid ([facility]/HCC) Morbid obesity Hypertensive heart and CKD, ESRD on dialysis ([facility]) CHF (congestive heart failure), NYHA class II, acute on chronic, combined ([facility]) Diabetes mellitus with kidney disease ([facility]) Mixed hyperlipidemia Primary hypertension Unspecified essential hypertension Medication course changed documented in this encounter [facility] Work Phone: Evaluation note* Diagnosis CHF (congestive heart failure), NYHA class II, acute on chronic, combined ([facility]) Primary hypertension Unspecified essential hypertension Nonischemic cardiomyopathy ([facility]) Other primary cardiomyopathies Medication course changed Hypertensive heart and CKD, ESRD on dialysis ([facility]) Mixed hyperlipidemia Diabetes mellitus with kidney disease ([facility]/HCC) documented in this encounter [facility] Work Phone: Evaluation note* Diagnosis Onset Date Resolution Status Rhinitis, allergic acute Tim hy kid w cr kid I-IV acu te Chronic kidney disease, stage III (moderate) acute Complex renal cyst acute Nephrolithiasis acute Proteinuria acute Thrombocytopenia acute Type 2 diabetes mellitus wit h diabetic chronic kidney disease acute [facility] Work Phone: History and physical note Author Rodney Victor [facility] October 21, 2023 11:23am Note Date/Time October 21, 2023 1 1:23am [facility] [address] [place] [address] Gastroenterology H&P Signed Patient: Td Giraldo MR#: [id number] : 1950 Acct:[id number] Age/Sex: 72 / M Adm Date: 3 Loc: Room: Type: [facility] Attending Dr: Rodney Victor MD [...] signed by Rodney Victor MD> 10/21/23 1123 [facility] Work Phone: Hisxich general Narrative - Reported* Type Description Date Medical History chronic renal failure Medical History hyperkalemia Medical History diabetes mellitus Medical History coronary artery disease Medical History sleep apnea Medical History hypertension Medical History obstructive uropathy Medical History CHF Medical History only has one kidney Medical History hypertension Surgical History left wrist ganglion cyst excisi on, volar [employer] Other Hisfvis general Narrative - Reported* Type Description Date Medical History chronic renal failure Medical History hyperkalemia Medical History diabetes mellitus Medical History coronary artery disease Medical History sleep apnea Medical History hypertension Medical History obstructive uropathy Medical History CHF Medical History only has one kidney Medical History hypertension Surgical History left wrist ganglion cyst excisi on, volar Surgical History b/l cataracts [employer] Other Hisxkgn general Narrative - Reported* Type Description Date Medical History chronic renal failure Medical History hyperkalemia Medical History diabetes mellitus Medical History Congestive heart failure Medical History sleep apnea Medical History hypertension Medical History obstructive uropathy Medical History only has one kidney Surgical History left wrist ganglion cyst excisi on, volar Surgical History b/l cataracts [employer] Other History general Narrative - Reported* Type [...] 06/2015 Hospitalization History ABNORMAL LABS/ DIALYSIS 07/2015 [employer] Other Hisbswq general Narrative - Reported* Type Description Date [...] 06/2015 Hospitalization History ABNORMAL LABS/ DIALYSIS 07/2015 [employer] Other Hismdnf general Narrative - Reported* Type Description Date [...] 06/2015 Hospitalization History ABNORMAL LABS/ DIALYSIS 07/2015 [employer] Other History general Narrative - Reported* Type [...] 06/2015 Hospitalization History ABNORMAL LABS/ DIALYSIS 07/2015 [employer] Other History of Present illness Narrative* The [...] medication regimen. He denies medication side effects. [employer] Work Phone: History of Present illness Narrative* [...] medication regimen. He denies medication side effects. [employer] Work Phone: History of Present illness Narrative* [...] medication regimen. He denies medication side effects. [facility] Work Phone: Hospital Discharge instructions [...] problems. -Follow up with PCP. -Office number [phone].[facility] Work Phone: Reason for referral (narrative)* Consultation (Routine) - Authorized Specialty Diagnoses / Procedures Referred By Contac t Referred To Contact Cardiology Diagnoses CHF (congestive heart failure), NYHA class II, acute on chronic, combined (CMS/HCC) Primary hypertension Procedures Follow Up In Cardiology Britney Yu MD [address] [facility] [address] [place] [address] Britney Yu MD [address] [facility] [address] [place] [address] Referral ID Status Reason Start Date Expiration Date V isits Requested Visits Authorized [id number] Authorized 09/28/2023 09/27/2024 1 1 [employer] [facility] Work Phone: Reorbq for referral (narrative)* Consultation (Routine) - Authorized Specialty Diagnoses / Procedures Referred By Contac t Referred To Contact Cardiology Diagnoses CHF (congestive heart failure), NYHA class II, acute on chronic, combined (CMS/HCC) Primary hypertension Nonischemic cardiomyopathy (CMS/HCC) Procedures Follow Up In Cardiology Britney Yu MD [address] [facility] [address] [place] [address] Britney Yu MD [address] [facility] [address] [place] [address] Referral ID Status Reason Start Date Expiration Date V isits Requested Visits Authorized [id number] Authorized 10/15/2023 10/14/2024 1 1 [employer] [facility] Work Phone: reason for visit Narrativenutrition referral discussionNosoutheast missouri hospital [employer] Other Summary Purpose Family History Unknown Family [...] Praful off ice. Previously saw provider at [facility] ortho Diagnosis 1 Recurrent pain of ri ght knee (M25.561) Referral Organization [facility] C euseb[place] Referring Provider First Name Jun Referring Provider Last Name Kun Referring Provider Specialty [facility] Referred Organization [facility] Referred Provider Ritchie Desai Referred Address ,[place], [place],[address] Referred Provider Specialty Orthopedic S urgery Referral Priority Routine Referral Appointment Date 2022-12-16 General Notes Becca Boykin 11:40:22 AM >received today, notes locked, attachments made, referral faxed P2P Becca Boykin 12/12/2022 09:25:38 AM >faxed first attempt letter Becca Boykin 12/12/2022 01:42:44 PM >received fax back that pt is scheduled with BIOSTATISTICS MANAGER Becca Gordillo 12/17/2022 08:00:55 AM >faxed first request for consult notes Becca Boykin 2022 12:58:52 PM >faxed second request for notes Becca Boykin 12/26/2022 05:01:54 PM >received notes, sent for review. Reason 12/26/22 [place] [facility]. pt has data on previous echos, etc Diagnosis 1 Left heart failure w ith left ejection fraction greater than 40 percent (I50.1) Referral Organization [facility] [employer] [facility] eusebia Referring Provider First Name Jun Referring Provider Last Name Kun Referring Provider Specialty [facility] Referred Organization [facility] enter Referred Provider Lashell Osborn Referred Address [address] ,[place], [place],[address] Referred Provider Specialty Internal Med icine Referral Priority Routine Referral Appointment Date 2022-12-26 General Notes Becca Boykin 01:12:21 PM >pt was originally referred by Edie Morse and has an appt with [facility] on 12/26/22 Becca Boykin 12/29/2022 05:08:53 PM >faxed first request for consult notes Becca Boykin 12/30/2022 01:56:43 PM >received notes, sent for review. Closing referral at this time. Reason 02/04/23 Pt has re cent labs. copies will also be scanned in Diagnosis 1 CKD (chronic kidney disease) stage 2, GFR 60-89 ml/min (N18.2) Referral Organization [facility] [employer] eusebia Referring Provider First Name Jun Referring Provider Last Name Kun Referring Provider Specialty [facility] Referred Organization [facility] Nephrology Referred Provider Tj Solis Referred Address [address] ,[place],[address] Referred Provider Specialty Nephrology Referral Priority Routine Referral Appointment Date 2023-02-04 General Notes Becca Boykin 12:30:23 PM >received today, sent P2P Becca Boykin 12/05/2022 12:53:06 PM >waitng to see if can schedule since pt, said we are not in his network. TE was sent Becca Boykin 12/05/2022 01:19:03 PM >per [employer]ity website no auth is required Reason 12/11/22 [facility] office preferred - needs nail care and possible toenail removal Diagnosis 1 Diabetic peripheral neuropathy (E11.42) Referral Organization [facility] [employer] eusebia Referring Provider First Name Jun Referring Provider Last Name Kun Referring Provider Specialty [facility] Referred Organization [facility] Referred Provider JAGDEEP GIBSON Referred Address ,[place], [place],[address] Referred Provider Specialty Podiatry - S urgical Chiropody Referral Priority Routine Referral Appointment Date 2022-12-11 General Notes Becca Boykin 11:23:27 AM >received today, faxed referral Becca Boykin 12/05/2022 01:14:47 PM >patient provided appt date Becca Boykin 12/12/2022 01:27:01 PM >faxed first request for consult notes Becca Boykin 12/15/2022 12:08:55 PM >received notes and sent for review. closing referral at this time. Clinical Notes [id number] Reason 12/10/22 yearly sk in exam Diagnosis 1 Precancerous skin le edith (L98.9) Referral Organization [facility] [employer] eusebia Referring Provider First Name Jun Referring Provider Last Name Kun Referring Provider Specialty [facility] Referred Organization [facility] Kaelyn christine Referred Provider Tigre Russell Referred Address [address],[place],[address] Referred Provider Specialty Dermatology Referral Priority Routine Referral Appointment Date 2022-12-10 General Notes Becca Boykin 10:49:22 AM >received today, notes locked, attachments made, referral faxed Becca Boykin 12/15/2022 11:00:10 AM >faxed first attempt letter Becca Boykin 12/15/2022 02:09:31 PM >received notes and sent for review Reason CLOSED evaluate Diagnosis 1 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) Referral Organization [facility] e [facility] Referring Provider First Name Edie Referring Provider Last Name Luciaacher Referring Provider Specialty Nurse Pract itioner Referred Organization [facility] Nephrology Cli manpreet Vargas Referred Provider Tj Solis Referred Address [address],[place], [place],[address] Referred Provider Specialty Nephrology Referral Priority Routine General Notes Becca Boykin 11:14:39 AM >received today Becca Boykin 11/20/2022 11:15:11 AM >waiting for notes to be locked, and [employer] website is currently down to complete PA. will check back Becca Boykin 11/21/2022 09:08:45 AM >[employer] website is still down. will check back Becca Boykin 11/24/2022 09:17:04 AM >[employer] site still down Becca Boykin 11/25/2022 08:54:58 [...] unspecified heart failure type (I50.9) Referral Organization [facility] Referring Provider First Name Edie Referring Provider Last Name Luciaacher Referring Provider Specialty Nurse Pract itioner Referred Organization [facility] enter Referred Provider Hawa Diallo Referred Address [address],[place], [place],[address] Referred Provider Specialty Cardiac Surg niurka Referral Priority Routine Referral Appointment Date 2022-12-26 General Notes Becca Boykin 11:08:29 AM >received today, waiting for notes to be locked, and [employer] website is down for Prior Auth. will check back Oz Boykinya 11/21/2022 09:08:07 AM >[employer] website is still down at this time. Shaynearash Becca 11/24/2022 09:16:51 AM >availity site still down Becca Boykin 11/25/2022 08:54:58 AM >site up, and no auth is required. attachment made, referral faxed Becca Boykin 12/02/2022 09:47:35 AM >faxed first attempt letter ShayneBecca antoine 12/03/2022 01:52:54 PM >received fax with appt date and time Reason CLOSED- changed prim jason providers evaluate and treat Diagnosis 1 Other chronic pain ( G89.29) Diagnosis 2 Pain in right knee ( M25.561) Referral Organization [facility] Referring Provider First Name Edie Referring Provider Last Name Lito Referring Provider Specialty Nurse Pract itioner Referred Organization [facility] [place] [facility] Referred Provider Tad Boucher Referred Address [address] [place],[address] Referred Provider Specialty Orthopedic S urgery Referral Priority Routine General Notes Oz Boykinya 11:16:24 AM >received today, waiting for notes to be locked, and [employer] website is currently down at the moment. will folllow up Shayneroopaclinton Becca 11/21/2022 09:09:03 AM >[employer] website is still currently down. will check back ShayneBecca antoine 11/24/2022 09:17:20 AM >[employer]ity site is still [...] dilated LVEF 31%. * I reviewed prior [facility] note dated August 25, 2022. * [...] Patient is no longer receiving care from [facility]: Transferred care to [facility] with new patient assessment by Dr. Osborn [...] reports that usually calibrated yearly by the [facility],will no longer be seen in the [...] dilated LVEF 31%. * I reviewed prior [facility] note dated August 25, 2022. * [...] Patient is no longer receiving care from [facility]: Transferred care to [facility] with new patient assessment by Dr. Osborn [...] 1 Month Follow Up DM cough congestion Chief Complaint iron defiency anemia I50.43 Feels Cold, Achy, Weak, Sinus- Thinks He I50.43 I42.8 Z79.899 Wants To Establish As A New Patient 1 Month Follow Up DM cough congestion renal 4 month f/u Reason for Visit Rhinitis, allergic Tim hy kid w cr kid I-IV Chronic kidney disease, stage III (moderate) Complex renal cyst Nephrolithiasis Proteinuria Thrombocytopenia Type 2 diabetes mellitus with diabetic chronic kidney disease Additional Source Comments INFORMATION SOURCE (unrecogn ized section and content) DATE CREATED AUTHOR 05/12/2018 [facility] DATE CREATED AUTHOR AUTHOR'S ORGANIZ ATION 11/16/2020 [facility] DATE CREATED AUTHOR AUTHOR'S ORGANIZ ATION 01/08/2023 [facility] dical Specialist DATE CREATED AUTHOR AUTHOR'S ORGANIZ ATION 04/26/2023 [facility] DATE CREATED AUTHOR AUTHOR'S ORGANIZ ATION 05/15/2023 [facility] DATE CREATED AUTHOR AUTHOR'S ORGANIZ ATION 05/15/2023 [employer] DATE CREATED AUTHOR AUTHOR'S ORGANIZ ATION 05/23/2023 [facility] DATE CREATED AUTHOR AUTHOR'S ORGANIZ ATION 08/21/2023 [facility] DATE CREATED AUTHOR AUTHOR'S ORGANIZ ATION 10/18/2023 [facility] DATE CREATED AUTHOR AUTHOR'S ORGANIZ ATION 2023 [facility] (unrecognized sect ion and content) No Status Records FoundNo Status Records FoundNo Status Records FoundNo Status Records FoundNo Status Records FoundNo Status Records FoundNo Status Records FoundNo Status Records FoundNo Status Records FoundNo Status Records Found REASON FOR VISIT (unrecogniz ed section and content) Reason Comments Follow-up 4 month Reason Comments Follow-up 2w Specialty Diagnoses / Procedures Referred By Contac t Referred To Contact Cardiology Diagnoses CHF (congestive heart failure), NYHA class II, acute on chronic, combined ([facility]/HCC) Primary hypertension Procedures Follow Up In Cardiology Britney Yu MD [address] [address] Britney Yu MD 254 [facility] [address] [place] [address] Referral ID Status Reason Start Date Expiration Date V isits Requested Visits Authorized [id number] Authorized 09/28/2023 09/27/2024 1 1 Care Teams [...] Active Tj Solis MD Attending Provider Active 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 Relationship Specialty Start Date End Date Jun Perez MD [address] [place] [address] PCP - General 12/26/22 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 Relationship Specialty Start Date End Date Jun [...] December 31, 2023 End: December 31, 2023 Team Status: Active Member Role Status Dates Jun Perez MD Primary Care Provide r, Attending Provider Active Start: January 04, 2024 Team Status: Inactive Member Role Status Dates Jun Perez MD Primary Care Provider Active Start: January 05, 2024 End: January 05, 2024 Tj Solis MD Attending Provider Active Start : January 05, 2024 End: January 05, 2024 Goals (unrecognized section and content) Goals may [...] BE BASED ON THE PRIMARY CLINICAL RECORDS. [employer] provides no warranty or guarantee of the accuracy or completeness of information in this document.
[2024-01-08 08:40] LABS: Anion Gap 11.8; BUN Creatinine Ratio 19.2; Calcium 8.7 mg/dL (8.5-10.1); Carbon Dioxide 29.2 mmol/L (21.0-32.0); Chloride 105 mmol/L (98-107); Estimated GFR (African America 49 (>=60); Estimated GFR (Non-African Ame 41 (>=60); Glucose 161 mg/dL (74-106); Sodium 141 mmol/L (136-145)
== END 2024-01-08 07:58 | disposition home or self-care (01) ==
LOC: LAB 07:59
PROVIDERS: PCP Family Medicine
DX: E11.29 Type 2 diabetes mellitus with other diabetic kidney complication (principal); I50.9 Heart failure, unspecified; N18.2 Chronic kidney disease, stage 2 (mild)
CPT/HCPCS: 36415; 80048

== ENCOUNTER 2024-04-30 20:00 | Outpatient (OUT) | payer MEDICARE, SELFPAY ==
--- OUTSIDE RECORDS SUMMARY | 2024-05-02 07:34 | XMS_ITS | CCD ---
Author Organization [facility] Care Team Providers Care Process Controller Name Role Phone NO REFERRING Unavailable Unavailable [employer] Unavailable Unavailable DISCH, JNO Unavailable Unavailable Phyllis Reyes Unavailable Mary Bryson Unavailable Jun Perez Unavailable Unavailable Unavailable Edie Morse Unavailable Jun Perez Unavailable MayoTj Unavailable MAYOTJ Attending Unavailable MAYO TJ Consulting Unavailable MAYO TJ Admitting Unavailable Dr. Malika Patel Primary Care Robb Osborn, Dr. Jerez Attending Unavailable Anurag, Dr. Jerez Referring Unavailable Kun, Dr. Jun Patel Primary Care Unav ailronaldo Osborn, Dr. Jerez Attending Unavailable Anurag, Dr. Jerez Referring Unavailable Kun, Dr. Jun Patel Primary Care Odilia Sotelo Attending Unavailable Odilia Mackenzie Referring Unavailable Kun, Dr. Jun Patel Primary Care UnaMD BRITNEY Rose Attending Unavailable MD BRITNEY YU Referring Unavailable Odilia Mackenzie Attending Unavailable Kun, Dr. Jun Patel Primary Care Jacobo ailronaldo Osborn, Dr. Jerez Attending Unavailable Kun, Dr. Jun Patel Primary Care Jacobo ailronaldo Osborn, Dr. Jeerz Attending Unavailable Kun, Dr. Jun Patel Primary Care UnaRitchie Wilcox Admitting Unavail CAROLEE Sanchez Primary Care Unavailable Ritchie Desai Attending Unavail able CAROLEE GONZALEZ Primary Care Unavailable Ritchie Desai Attending Unavail able Ritchie Desai Admitting Unavail able Rodney Victor Unavailable Mapus, Tondra Unavailable MD Jun Perez Primary Care Provider Mapus, [employer] Tondra K Attending Provider MD Tj Solis Attending Provider Kun JARA, Jun Patel Primary Care Provider Kun JARA, Jun Patel Primary Care Provider Unavailable MD Jun Perez Primary Care Provider Mapus, CORRESPONDENCE SCHOOL TEACHERBruce Song K Attending Provider MD Tj Solis Attending Provider [phone] MD Rodney Victor Attending Provider [phone] MD Britney Yu Attending Provider [phone] Jose Yu Unavailable MD Jun Perez Primary Care Provider Map, [employer] Ton K Attending Provider [phone] MD Jun Perez Primary Care Provider Mapus, [employer] TE[employer]ER Tona K Attending Provider MD Jose Yu Attending Provider BRITNEY YU Attending Unavailable JUN PEREZ Primary Care Unavailable BRITNEY YU Attending Unavailable BRITNEY YU Referring Unavailable JUN PEREZ Primary Care Unavailable MD Jun Perez Primary Care Provider Tj Solis Attending Unavailable Jun Perez Primary Care Unavailable Tj Solis Admitting Unavailable Jun Perez Primary Care Unavailable Britney Yu Admitting Unavailable Britney Yu Attending Unavailable Britney Yu Admitting Unavailable Britney Yu Attending Unavailable Jun Perez Primary Care Unavailable Jose Yu Admitting UnaJose Lewis Attending Jun Douglas Primary Care Unavailable Jun Perez Primary Care Unavailable Duncan Parham Admitting Unavailable Duncan Parham Attending Unavailable Jun Perez Primary Care Unavailable Rodney Victor Admitting Unavailable Rodney Victor Attending Unavailable Allergies Allergy Classification Reported Allergen(s) Allergy Type Date of Onset Reaction(s) Facility (20 sources) Contrast media Propensity to adverse reactions Unknown [place]ow[place] Other (8 sources) Contrast media Allergy to substance (finding) Shortness of breath [facility] DO Work Phone: (6 sources) Angiotensin Converting Enzyme (Elisa) Inhibitors; Translations: [ELISA Inhibitors] Allergy to drug (finding) [facility] 250 DO Work Phone: (1 source) Contrast media; Translations: [Contrast Dye] Propensity to adverse reactions to drug (disorder) [facility] (14 sources) Gadolinium-Cont aining Contrast Medi; Translations: [Gadolinium-Con taining Contrast Medi] Allergy to substance 1 Anaphylaxis [facility] (17 sources) Iodinated Contrast Media; Translations: [IODINATED CONTRAST MEDIA] Allergy to substance 1 Shortness of breath [facility] Medications Current Medications Medication Drug Class(es) [...] 5 MG PO Bedtime October 21, 2023 1:00am take 0.5 tablet by mouth once da [...] a day for 5 day(s) Aug, Active Blood-Glucose Meter (Accu-Ch ek Guide Glucose Meter) misc (2 sources) Start: 04-18-2024 Blood-Glucose Meter (Accu-Chek Guide Glucose Meter) misc Active 0 .Route 1 April 18, 2024 9:37am As directed Use with Accu Chek Guide test strips to check blood glucose Start: 04-18-2024 End: 04-18-2024 Blood-Glucose Meter (Accu-Ch ek Guide Glucose Meter) misc Discontinued 0 .Route April 18, 2024 12:00am April 18, 2024 9:38am As directed carvedilol 25 mg oral tablet (20 sources) alpha-Adrenergic Michelle, beta-Adrenergic Michelle Start: 01-05-2024 End: 01-11-2024 take 25 mg by mouth twice daily at mealtime Carvedilol Active 25 MG PO Twice daily January 11, 2024 12:43pm must administer with a meal/food Start: 10-21-2023 End: 01-05-2024 take 12.5 mg by mouth twice daily Carvedilol Discontinued 12.5 MG PO Twice daily October 21, 2023 1:00am January 05, 2024 1:03pm Start: 06-08-2023 take 1 tablet by tanvi [...] 4000 UNIT PO Daily October 21, 2023 1:00am take 1 capsule by mo uth every twelve hours Vitamin D3 50 MCG (2000 UT) 1 capsule Or ally BID Active take 1 tablet by mouth once lex y cholecalciferol (Vitamin D3) 50 MCG (2000 UT) tablet Take 1 tablet (50 mcg) by mouth once daily. 0 Active empagliflozin 25 mg oral tablet (20 sources) Sodium-Glucose Cotransporter 2 Inhibitor Start: 01-11-2024 Empagliflozin (Jardiance) 25 mg tablet Active 0 PO Daily January 11, 2024 12:40pm 12.5 mg (1/2 tab) orally daily; Start: 10-21-2023 End: 01-11-2024 take 1 tablet by mouth once daily Empagliflozin (Jardiance) 25 mg tablet Discontinued 25 MG PO Daily January 05, 2024 1:04pm January 11, 2024 12:43pm Start: 09-17-2023 take 10 mg by mouth [...] Active ferrous sulfate 325 mg oral tablet (20 sources) Start: 10-21-2023 Ferrous Sulfat e (Iron) 325 mg (65 mg iron) Tablet Active 325 MG PO Q48H October 21, 2023 1:00am take 1 tablet by mouth every oth [...] PO Three times daily October 21, 2023 1:00am take 1 capsule by mouth once sebastian ly Gabapentin 100 MG 1 capsule Orally 3x daily for 90 days Active take 1 capsule by mo [facility] three times daily gabapentin (Neurontin) 100 mg capsule Ta 1 capsule (100 mg) by mouth 3 times a day. 0 Active glipiZIDE 5 mg oral tablet (20 sources) Sulfonylurea Start: 01-05-2024 take 1 tablet by mouth twice daily 30 minutes before breakfast Glipizide Active 5 MG PO Twice daily January 05, 2024 1:00am FreeTextSi tablet 30 minutes before breakfast Orally twice a day; Note: Source Status: Taking; Provider: Aimee Garcia ( ) take 1 tablet by tanvi twice daily [...] oral tablet (20 sources) Arteriolar Vasodilator Start: 01-08-2024 take 37.5 mg by mouth every eight hours Hydralazine Active 37.5 MG PO Every 8 hours January 08, 2024 2:39pm Start: 09-28-2023 End: 09-27-2024 take 1.5 tablets by mouth three times daily Hydralazine Discontinued MG PO January 05, 2024 1:00am January 08, 2024 2:41pm FreeTextSi.5 tabs Orally Three times a day; Note: Source Status: Taking; Provider: Aimee Garcia ( ) End: 09-28-2023 take 1.5 tablets by mouth three times daily hydrALAZINE HCl 25 MG 1.5 tabs Orally Three times a day Active hydrALAZINE HCl 25 MG 1 1/2 tablet with food Orally Three times a day Active take 1 tablet by [facility] every eight hours hydrALAZINE HCl 10 mg [...] 1 tablet Orally Twice a day Active linaclotide 0.072 mg oral capsule (1 source) Guanylate Cyclase-C Agonist Start: 4 take 1 capsule by mouth once daily Linaclotide (Linzess) 72 mcg capsule Active 72 MCG PO Daily April 13, 2024 12:00am lisinopril 2.5 mg oral tablet (10 sources) Angiotensin Converting Enzyme Inhibitor Start: 4 take 1 tablet by mouth every twenty-four hours Lisinopril 2.5 MG 1 tablet Orally Once a day for 90 days Nov, Active Start: 04-16-2023 End: 09-28-2023 take 1 tablet by mouth every twenty-four hours Lisinopril 2.5 MG 1 tablet Orally Once a day for 90 days Apr, Active losartan potassium 50 mg oral tablet (20 sources) Angiotensin 2 Receptor Michelle Start: 01-11-2024 take 1 tablet by mouth once daily Losartan Active 50 MG PO Daily January 11, 2024 12:41pm FreeTextSi tablet Orally Once a day; Note: Source Status: StartStop Lisinopril; Refills: 1; Qty: 90 Tablet; Provider: Robyn Zimmer Start: 01-05-2024 End: 01-11-2024 take 1 tablet by mouth once daily Losartan Discontinued 25 MG PO Daily January 05, 2024 1:07pm January 11, 2024 12:43pm FreeTextSi tablet Orally Once a day; Note: Source Status: StartStop Lisinopril; Refills: 1; Qty: 90 Tablet; Provider: Robyn Zimmer Start: 12-30-2023 End: 01-05-2024 take 1 tablet by mouth once daily Losartan Discontinued 50 MG PO Daily December 30, 2023 1:00am January 05, 2024 1:07pm FreeTextSi tablet Orally Once a day; Note: [...] day for 90 days Stop Lisinopril Active meclizine hydrochloride 25 mg oral tablet (1 source) Antiemetic Start: 04-27-2024 take 25 mg by mouth twice daily Meclizine Active 25 MG PO Twice daily April 27, 2024 12:00am Multivitamin preparation (3 sources) Multivitamin Act fabien [place] 1000 MG (18 sources) take 1000 mg by mouth twice daily [place] 1000 MG as directed Orally BID Active [place] 450 MG (6 sources) take 450 mg by mouth three times daily [place] 450 MG as directed Orally three times a day Active [place] (12 sources) Start: 10-21-2023 take 450 mg by mouth three times daily at mealtime Saw [place] Active 450 MG PO Three times daily October 21, 2023 1:00am give with food (meal/snack) Start: 10-21-2023 take 450 mg by mouth three times daily at mealtime [place] Active 450 MG PO Three times daily [...] patient states he takes 30mg PRN Active meloxicam 7.5 mg oral tablet (1 source) Nonsteroidal Anti-inflammatory Drug Start: 04-13-2024 End: 04-27-2024 take 7.5 mg by mouth once daily Meloxicam Discontinued 7.5 MG PO Daily April 13, 2024 12:00am April 27, 2024 12:04pm methylPREDNISolone 125 mg injection (10 sources) Corticosteroid Start: 01-01-2024 End: 01-01-2024 inject 60 mg by intramuscular injection once daily in the morning Methylprednisolone Sodium Succ Discontinued 60 MG IM Every morning January 01, 2024 1:00am January 01, 2024 10:14am Start: 02-17-2023 methylPREDNISo lone 4 MG as [...] mg / valsartan 103 mg oral tablet (20 sources) Angiotensin 2 Receptor Michelle Start: 10-15-2023 End: 10-14-2024 take 0.5 tablet by mouth twice daily Sacubitril-Valsartan (Entresto) 97-103 mg tablet Discontinued 0.5 TAB PO Twice daily October 21, 2023 1:00am January 05, 2024 1:06pm Start: 09-28-2023 End: 10-15-2023 take 1 tablet by mouth twice daily sacubitriL-valsartan (Entresto) 24-26 mg tablet Indications: Hypertensive heart and CKD, ESRD on dialysis ([facility]) , CHF (congestive heart failure), NYHA class II, acute on chronic, combined ([facility]) , Primary hypertension Take [...] tablet Orally Twice a day Not-Taking/PRN Saw [place] 1000 MG Oral Capsule (8 sources) Saw [place] 100 0 MG Oral Capsule TAKE DIRECTED. Quantity: 0 Refills: 0 Ordered: 26-Dec-2022 DO Active triamcinolone acetonide 40 mg/ml injectable suspension (20 sources) Corticosteroid Start: 04-30-2022 Kenalog-40 Apr, 20 mg Start: 04-30-2022 Kenalog-40 Apr, 40 mg Start: 07-29-2021 Kenalog -40 mg Jul, 40 mg Problems Active Problems Problem Classification Problem Date Documented Da te Episodic/Chronic Administrative/social admission (8 sources) Dietary counseling and surveillance; Translations: [Patient encounter status] Episodic Calculus of urinary tract (20 sources) [...] or chronic Episodic Coagulation and hemorrhagic disorders (14 sources) Thrombocytopenic disorder; Translations: [Thrombocytopenia, unspecified] 01-05-2024 [...] kidney disease Chronic Deficiency and other anemia (19 sources) Iron deficiency anemia; Translations: [Iron deficiency anemia, unspecified] 01-04-2024 Episodic Diabetes mellitus with complications (20 sources) [...] mellitus with diabetic chronic kidney disease] Onset: 4 Disorders of lipid metabolism (20 sources) Hyperlipidemia; Translations: [Other and unspecified hyperlipidemia] Onset: 3 Chronic Essential hypertension (20 sources) Essential hypertension; Translations: [Unspecified essential hypertension] Onset: 3 Chronic Genitourinary congenital anomalies (20 sources) Renal agenesis and dysgenesis; 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, unilateral] Onset: 3 Chronic Genitourinary symptoms and ill-defined conditions (18 sources) Proteinuria, unspecified; Translations: [Proteinuria] Onset: 3 [...] sources) Long-term current use of insulin; 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] Episodic Other bone disease and musculoskeletal deformities (1 source) Disorder of bone, unspecified; Translations: [Disorder of bone, unspecified] Onset: 3 Episodic Other diseases of kidney and ureters (8 sources) Complex renal cyst; Translations: [Cyst of kidney, acquired] 01-04-2024 Episodic Other gastrointestinal disorders (1 source) Irritable bowel syndrome characterized by constipation; Translations: [Irritable bowel syndrome with constipation] 04-13-2024 Chronic Other gastrointestinal disorders (1 source) Irritable bowel syndrome with constipation; Translations: [Irritable bowel syndrome] 04-12-2024 Chronic Other infections; including parasitic (5 sources) Personal [...] nutritional; endocrine; and metabolic disorders (3 sources) Body mass index (BMI) 36.0-36.9, adult; Translations: [Body Mass Index 36.0-36.9, adult] Chronic Other nutritional; endocrine; and metabolic disorders (2 sources) Morbid (severe) obesity due to excess calories; Translations: [Morbid (severe) obesity due to excess calories (CMS/HCC)] Onset: 3 Chronic Other nutritional; endocrine; and metabolic disorders (2 sources) Body mass index 30+ - obesity; Translations: [Body mass index (BMI) 36.0-36.9, adult] 03-24-2024 Chronic Other nutritional; endocrine; and metabolic disorders [...] tissue, unspecified Episodic Other upper respiratory disease (8 sources) Allergic rhinitis; Translations: [Allergic rhinitis, unspecified] 12-31-2023 Chronic Other upper respiratory disease (6 sources) Allergic rhinitis, unspecified; Translations: [Allergic rhinitis, cause unspecified] 12-31-2023 Chronic Other upper respiratory infections (1 source) Acute maxillary sinusitis, unspecified Episodic Symone-; endo-; and myocarditis; cardiomyopathy (except that caused by tuberculosis or sexually transmitted disease) (20 sources) Cardiomyopathy; Translations: [Other primary cardiomyopathies] Onset: 3 09-25-2023 Chronic Personality disorders (4 sources) Personality disorder; Translations: [Personality disorder, unspecified] Onset: 3 09-28-2023 Chronic Residual codes; unclassified (10 sources) Obstructive sleep apnea of adult; Translations: [Obstructive sleep apnea (adult)(pediatric)] Onset: 3 09-25-2023 Chronic Residual codes; unclassified (1 source) Obstructive sleep apnea syndrome; Translations: [Obstructive sleep apnea (adult) (pediatric)] 04-13-2024 Chronic Residual codes; unclassified (1 source) Obstructive sleep apnea (adult) (pediatric); Translations: [Obstructive sleep apnea (adult)(pediatric)] 04-12-2024 Chronic Residual codes; unclassified (13 sources) Transient alteration of awareness; Translations: [Transient [...] Classification Problem Date Documented Da te Episodic/Chronic Deficiency and other anemia (1 source) Anemia, unspecified; Translations: [Anemia, unspecified] Onset: 10-21-2023 Episodic Inflammation; infection of eye (except that caused by tuberculosis or sexually transmitteddisease) (1 source) Hordeolum externum right lower eyelid Onset: 05-25-2022 Resolved: 05-25-2022 Episodic Other aftercare (2 sources) [facility] [place]; Translations: [Other [place] [facility] drug therapy] Onset: 09-25-2023 Episodic Other connective tissue disease (1 source) Pain in left hand Onset: 04-30-2022 Resolved: 04-30-2022 Episodic Other diseases of kidney and ureters (8 sources) Cyst of kidney, acquired; Translations: [Cystic kidney disease, unspecified] Onset: 09-17-2023 Episodic Other skin disorders (1 source) Change in skin lesion; Translations: [Anemia in chronic kidney disease] Onset: 09-17-2023 Episodic Unclassified (8 sources) Never smoked tobacco; Translations: [Never a smoker] Unclassified (1 source) Chronic cough R05.3 Unclassified (2 sources) Onset: 09-28-2023 Resolved: 10-15-2023 09-28-2023 Viral infection (1 source) COVID-19 Results Test Name Value Interpretation Reference Range Facility HbA1c HPLC (Bld) [Mass fract ion]on 03-24-2024 HbA1c (Bld) [Mass fraction] 6.6 % [facility] No Panel Informationon 03-24 Bedside Glucose 110 [facility] ECH echo transthoracicon [facility] echo transthoracic [facility] [place] [id number] Echocardiogram Signed Patient: Td Giraldo MR#: [id number] : 1950 Acct:[id number] Age/Sex: 73 / M ADM Date: 03/07/24 Loc: Room: Type: [facility] Attending Dr: Jose Yu MD Ordering Provider: Jose Yu MD Date of Service: 03/07/24 ECH/ECH echo transthoracic: I42.8 - Other cardiomyopathies Copies to: Jose Yu MD Td Roberts AM Patient Location: : 1950 Gender: Male (MM/DD/YYYY) Age: 73 Years Ordering Physician: Jose Yu Height: 74 in Weight: 270.005 lb Performed By: LAMAR Barbosa BSA: 2.47 m2 BP: 160 / 87 mmHg HR: 50 bpm Reason For Study: I42.8 - Other cardiomyopathies History: non-ischemic cardiomyopathy, CHF, CKD, DM, HTN + + Interpretation Summary Ejection Fraction = 40-45%. The left ventricle is mildly dilated. A variety of Doppler measurements indicate impaired left ventricular relaxation, which is associated with grade I/IV or mild diastolic dysfunction. The left atrium appears mildly dilated. The study was technically suboptimal in quality due to patient body habitus . There is no comparison study available. Procedure/Quality: A two-dimensional transthoracic echocardiogram with color flow, Doppler and injection of contrast agent Definity was performed. The study was technically suboptimal in quality due to patient body habitus . Left Ventricle: The left ventricular thickness is normal. The left ventricle is mildly dilated. Ejection Fraction = 40-45%. A variety of Doppler measurements indicate impaired left ventricular relaxation, which is associated with grade I/IV or mild diastolic dysfunction. Left Atrium: The left atrium appears mildly dilated. Right Atrium: The right atrium appears normal in size. Right Ventricle: The right ventricle is not well visualized. The right ventricle is grossly normal size. Aortic Valve: The aortic valve is not well visualized. No hemodynamically significant valvular aortic stenosis. No aortic regurgitation is present. Mitral Valve: The mitral valve is normal in structure. No significant mitral valve stenosis. There is no mitral regurgitation noted. Tricuspid Valve: The tricuspid valve is not well visualized. No tricuspid regurgitation. Pulmonic Valve: The pulmonic valve is not well visualized. Arteries: The aortic root is normal size. Pericardium/Pleura: No pericardial effusion seen. There is no pleural effusion. IVC/Hepatic Veins: The IVC is dialted with an abnormal collapsibility index, this suggestive of increased right atrial pressure. MMode/2D Measurements Calculations IVSd (0.7-1.1 cm): 1.19 cm LVIDd (3.7-5.4 cm): 8.1 cm LVPWd (0.7-1.1 cm): 0.72 cm LVIDs (2.3-3.6 cm): 4.5 cm LA dimension (2.3-4.0 cm): 4.3 Ao root diam (2.0-3.2 cm): 2.8 cm cm FS: 44.4 % Ao root area: 6.1 cm2 EDV(Teich): 358.8 ml LVOT diam: 2.12 cm ESV(Teich): 94.0 ml LVOT area: 3.5 cm2 EF(Teich): 73.8 % LAV(MOD-sp2): 67.9 ml LAV(MOD-sp4): 34.0 ml LA A2 area: 22.7 cm2 LA A4 area: 15.3 cm2 LA length (vol): 5.5 cm LA vol: 53.3 ml LA vol index: 21.6 ml/m2 Doppler Measurements Calculations MV E max campos: 71.7 cm/sec Ao V2 max: 124.3 cm/sec MV A max campos: 113.2 cm/sec Ao max P.2 mmHg MR max campos: 555.2 cm/sec Ao mean P.4 mmHg MV dec time: 0.31 sec Ao V2 mean: 87.6 cm/sec MV dec slope: 228.0 cm/sec?? Ao V2 VTI: 31.7 cm E/E' lat: 10.0 ALLISON(I,D): 2.21 cm2 E/E' med: 16.5 ALLISON(V,D): 2.20 cm2 LV V1 max: 77.1 cm/sec LV V1 max P.38 mmHg LV V1 mean: 53.9 cm/sec LV V1 mean P.39 mmHg LV V1 VTI: 19.8 cm + + + -------+ + : Electronically : : : : signed by: Jose : : Aimee : : : : : : on: 03/07/2024, : : 8:36 PM : Transcribed By: SCV Performed At: 03/07/24948 Signed By: Jose Yu MD 03/07/242036 Normal [facility] Estimated glomerular filtrat ion rate (GFR) non- Americanon 01-08-2024 GFR/1.73 sq M.predicted among non-blacks MDRD (S/P/Bld) [Vol rate/Area] 41 mL/min/{1.73_m2} >=60 [facility] Laboratory - Chemistry and C hemistry - challengeon 01-08-2024 Calcium [Mass/Vol] 8.7 mg/dL 8.5-10.1 [facility] Chloride [Moles/Vol] 105 mmol/L 98-107 [facility] CO2 [Moles/Vol] 29.2 mmol/L 21.0-32.0 [facility] Creatinine [Mass/Vol] 1.67 mg/dL 0.70-1.30 [facility] GFR/1.73 sq M.predicted MDRD (S/P/Bld) [Vol rate/Area] 49 mL/min/{1.73_m2} >=60 [facility] Glucose [Mass/Vol] 161 mg/dL 74-106 [facility] Potassium [Moles/Vol] 5.0 mmol/L 3.5-5.1 [facility] Sodium [Moles/Vol] 141 mmol/L 136-145 [facility] Urea nitrogen [Mass/Vol] 32.0 mg/dL 7.0-18.0 [facility] Urea nitrogen/Creatinine [Mass ratio] 19.2 mg/mg [facility] Serum or plasma anion gap de terminationon 01-08-2024 Anion gap [Moles/Vol] 11.8 mmol/L Fi [facility] Automated epithelial cells c ount in urine sediment (number/area)on 01-04-2024 Epithelial cells Auto (Urine sed) [#/Area] RARE #/LPF NONE/RARE [facility] Automated leukocytes count i n urine sediment (number/area)on 01-04-2024 WBC Auto (Urine sed) [#/Area] NONE SEEN #/HPF 0-2 [facility] Automated urine specific gra vity by refractometryon 01-04-2024 Specific gravity Refractometry automated (U) [Rel density] 1.025 1.005-1.025 [facility] Bilirubin Auto test strip (U ) [Mass/Vol]on 01-04-2024 Bilirubin (U) [Mass/Vol] Negative NEGATIVE [facility] Color Auto (U)on 01-04-2024 Color (U) LT. YELLOW YELLOW [facility] Erythrocyte distribution wid th Auto (RBC) [Ratio]on 01-04-2024 Erythrocyte distribution width (RBC) [Ratio] 15.2 % 11.0-15.0 [facility] Estimated glomerular filtrat ion rate (GFR) non- Americanon 01-04-2024 GFR/1.73 sq M.predicted among non-blacks MDRD (S/P/Bld) [Vol rate/Area] 47 mL/min/{1.73_m2} >=60 [facility] Hematocrit Auto (Bld) [Volum e fraction]on 01-04-2024 Hematocrit (Bld) [Volume fraction] 46.3 % 42.0-54.0 [facility] Hemoglobin [Mass/volume] in Bloodon 01-04-2024 Hemoglobin (Bld) [Mass/Vol] 14.1 g/dL 14.0-18.0 [facility] Iron binding capacity [Mass/ volume] in Serum or Plasmaon 01-04-2024 Iron binding capacity [Mass/Vol] 291.0 ug/dL 250.0-450.0 [facility] Iron saturation [Mass Fracti on] in Serum or Plasmaon 01-04-2024 Iron saturation [Mass fraction] 27.8 % [facility] Ketones Auto test strip (U) [Mass/Vol]on 01-04-2024 Ketones (U) [Mass/Vol] Negative NEGATIVE Fi [facility] Laboratory - Chemistry and C hemistry - challengeon 01-04-2024 Albumin [Mass/Vol] 3.5 g/dL 3.4-5.0 [facility] Calcium [Mass/Vol] 8.7 mg/dL 8.5-10.1 [facility] Chloride [Moles/Vol] 106 mmol/L 98-107 [facility] CO2 [Moles/Vol] 26.1 mmol/L 21.0-32.0 [facility] Creatinine [Mass/Vol] 1.46 mg/dL 0.70-1.30 [facility] Ferritin [Mass/Vol] 88.0 ng/mL 26.0-388.0 [facility] GFR/1.73 sq M.predicted MDRD (S/P/Bld) [Vol rate/Area] 57 mL/min/{1.73_m2} >=60 [facility] [facility] Glucose [Mass/Vol] 118 mg/dL 74-106 [facility] Iron [Mass/Vol] 81.0 ug/dL 65.0-175.0 [facility] Magnesium [Mass/Vol] 2.3 mg/dL 1.8-2.4 [facility] Potassium [Moles/Vol] 4.7 mmol/L 3.5-5.1 [facility] Sodium [Moles/Vol] 140 mmol/L 136-145 [facility] Urate [Mass/Vol] 6.4 mg/dL 3.5-7.2 [facility] Urea nitrogen [Mass/Vol] 31.0 mg/dL 7.0-18.0 [facility] Urea nitrogen/Creatinine [Mass ratio] 21.2 mg/mg [facility] Leukocytes [#/volume] correc ritu for nucleated erythrocytes in Blood by Automated counon 01-04-2024 WBC corrected for nucl RBC Auto (Bld) [#/Vol] 5.4 10 3/uL 4.0-11.0 [facility] MCH Auto (RBC) [Entitic mass ]on 01-04-2024 MCH (RBC) [Entitic mass] 26.5 pg 25.9-34.0 [facility] MCHC Auto (RBC) [Mass/Vol]on 01-04-2024 MCHC (RBC) [Mass/Vol] 30.5 g/dL 29.9-35.2 [facility] MCV Auto (RBC) [Entitic vol] on 01-04-2024 MCV (RBC) [Entitic vol] 87.0 fL 80.0-94.0 [facility] Mucus LM Ql (Urine sed)on Mucus Ql (Urine sed) NONE SEEN NONE SEEN [facility] No Panel Informationon 01-04 Parathyroid Hormone (Intact) 21 pg/mL 15-65 [facility] Comment on above: Performed at: [address] [id number] Director: Robin Mead PhD, Phone: [phone] Phosphorus Level 4.1 mg/dL 2.6-4.7 [facility] Platelet mean volume Auto (B ld) [Entitic vol]on 01-04-2024 Platelet mean volume (Bld) [Entitic vol] 12.0 fL 9.5-13.5 [facility] Platelets Auto (Bld) [#/Vol] on 01-04-2024 Platelets (Bld) [#/Vol] 106 10 3/uL 150-450 [facility] Protein Auto test strip (U) [Mass/Vol]on 01-04-2024 Protein (U) [Mass/Vol] 30 mg/dL NEG/TRACE Fi [facility] RBC Auto (Bld) [#/Vol]on RBC (Bld) [#/Vol] 5.32 10 6/uL 4.70-6.10 [facility] Serum or plasma anion gap de terminationon 01-04-2024 Anion gap [Moles/Vol] 12.6 mmol/L Fi [facility] Specific gravity Auto test s trip (U) [Rel density]on 01-04-2024 Specific gravity (U) [Rel density] CLEAR CLEAR [facility] Urine bacteria detection by automated methodon 01-04-2024 Bacteria Auto Ql (U) NONE SEEN #/HPF NONE SEEN [facility] Urine glucose measurement by test strip (mass/volume)on 01-04-2024 Glucose Test strip (U) [Mass/Vol] >=1000 mg/dL NEGATIVE [facility] Urine hemoglobin detection b y automated test stripon 01-04-2024 Hemoglobin Auto test strip Ql (U) Negative NEGATIVE [facility] Urine nitrite detection by a utomated test stripon 01-04-2024 Nitrite Auto test strip Ql (U) Negative NEGATIVE [facility] Urine sediment leukocyte cou nt by microscopy (number/high power field)on 01-04-2024 WBC LM.HPF (Urine sed) [#/Area] NONE SEEN #/HPF NONE SEEN [facility] Urobilinogen Auto test strip (U) [Mass/Vol]on 01-04-2024 Urobilinogen Qn (U) 0.2 {Dolores'U}/dL 0.2-1.0 [facility] pH Auto test strip (U)on pH (U) 5.5 [pH] 5.0-9.0 [facility] A1C HEMOGLOBINon 12-22-2023 HbA1c (Bld) [Mass fraction] 7.7 % N[facility]ION MEDICAL [facility] Make YES! Happen Other Glucose - FINGER STICKon Glucose [Mass/Vol] 137 mg/dL [facility] Other HbA1c (Bld) [Mass fraction]o n 12-22-2023 A1C HEMOGLOBIN [employer] Other Basic Metabolic Panelon 10-17 GFR/1.73 sq M.predicted MDRD (S/P/Bld) [Vol rate/Area] 43.529 mL/min/{1.73_m2} Normal [facility] Comment on above: Performed By: #### B MP #### [place] [address] [place] Calcium [Mass/volume] in Ser um or PlasmaOrdered By: Britney Yu on 11-05-2023 Calcium [Mass/Vol] 9.1 mg/dL Normal 8.6-10.3 [facility] Comment on above: Result Comment: PERF ORMED BY: [place] [address] PATHOLOGIST [employer] H[employer] OPERATOR TRAN RANDOLPH M.D. Performed By: #### B MP #### [place] [address] [place] Carbon dioxide, total [Moles /volume] in Serum or PlasmaOrdered By: Britney Yu on 11-05-2023 CO2 [Moles/Vol] 22.5 mmol/L Normal 21.0-31.0 [facility] Comment on above: Performed By: #### B MP #### [place] [address] [place] Chloride [Moles/volume] in S niya or PlasmaOrdered By: Britney uY on 11-05-2023 Chloride [Moles/Vol] 104 mmol/L Normal 98-107 [facility] Comment on above: Performed By: #### B MP #### [place] [address] [place] Creatinine [Mass/volume] in Serum or PlasmaOrdered By: Britney Yu on 11-05-2023 Creatinine [Mass/Vol] 1.66 mg/dL High 0.70-1.30 [facility] Comment on above: Performed By: #### B MP #### [facility] [address] [place] [address] [place] Glucose [Mass/volume] in Ser um or PlasmaOrdered By: Britney Yu on 11-05-2023 Glucose [Mass/Vol] 354 mg/dL High 70-100 [facility] Comment on above: ADA recommended refe rence rangeRandom Glucose Reference Range is dependent on time and content of last meal. Glucose of more than 200 mg/dL in a nonstressed, ambulatory subject supports the diagnosis of Diabetes Mellitus. Result Comment: [facility] om Glucose Reference Range is dependent on time and content of last meal. Glucose of more than 200 mg/dL in a nonstressed, ambulatory subject supports the diagnosis of Diabetes Mellitus. ADA recommended reference range Performed By: #### B MP #### [address] No Panel InformationOrdered By: Britney Yu on 11-05-2023 Estimated GFR (CKD-EPI) 43.529 mL/Min [facility] Creatinine Clearance (Chem N/A [facility] Potassium [Moles/volume] in Serum or PlasmaOrdered By: Britney Yu on 11-05-2023 Potassium [Moles/Vol] 4.5 mmol/L Normal 3.5-5.1 [facility] Comment on above: Performed By: #### B MP #### [address] Serum or plasma anion gap de terminationOrdered By: Britney Yu on 11-05-2023 Anion gap [Moles/Vol] 14.0 mmol/L Normal 6.0-15.0 [facility] Comment on above: Performed By: #### B MP #### [place] [address] [place] Sodium [Moles/volume] in Ser um or PlasmaOrdered By: Britney Yu on 11-05-2023 Sodium [Moles/Vol] 136 mmol/L Normal 136-145 [facility] Comment on above: Performed By: #### B MP #### [address] Urea nitrogen [Mass/volume] in Serum or PlasmaOrdered By: Britney Yu on 11-05-2023 Urea nitrogen [Mass/Vol] 43 mg/dL High 7-25 [facility] Comment on above: Performed By: #### B MP #### [address] Basic Metabolic Panelon 10-16 GFR/1.73 sq M.predicted MDRD (S/P/Bld) [Vol rate/Area] 45.838 mL/min/{1.73_m2} Normal [facility] Comment on above: Performed By: #### B MP #### [facility] [address] [place] [address] [place] Calcium [Mass/volume] in Ser um or PlasmaOrdered By: Britney Yu on 10-26-2023 Calcium [Mass/Vol] 9.5 mg/dL Normal 8.6-10.3 [facility] Comment on above: Result Comment: PERF ORMED BY: [place] [address] PATHOLOGIST [employer] H[employer] OPERATOR TRAN RANDOLPH M.D. Performed By: #### B MP #### [place] [address] [place] Carbon dioxide, total [Moles /volume] in Serum or PlasmaOrdered By: Britney Yu on 10-26-2023 CO2 [Moles/Vol] 25.0 mmol/L Normal 21.0-31.0 [facility] Comment on above: Performed By: #### B MP #### [place] [address] [place] Chloride [Moles/volume] in S niya or PlasmaOrdered By: Britney Yu on 10-26-2023 Chloride [Moles/Vol] 109 mmol/L High 98-107 [facility] Comment on above: Performed By: #### B MP #### [place] [address] [place] Creatinine [Mass/volume] in Serum or PlasmaOrdered By: Britney Yu on 10-26-2023 Creatinine [Mass/Vol] 1.59 mg/dL High 0.70-1.30 [facility] Comment on above: Performed By: #### B MP #### [address] Glucose [Mass/volume] in Ser um or PlasmaOrdered By: Britney Yu on 10-26-2023 Glucose [Mass/Vol] 206 mg/dL High 70-100 [facility] Comment on above: ADA recommended refe rence rangeRandom Glucose Reference Range is dependent on time and content of last meal. Glucose of more than 200 mg/dL in a nonstressed, ambulatory subject supports the diagnosis of Diabetes Mellitus. Result Comment: [facility] om Glucose Reference Range is dependent on time and content of last meal. Glucose of more than 200 mg/dL in a nonstressed, ambulatory subject supports the diagnosis of Diabetes Mellitus. ADA recommended reference range Performed By: #### B MP #### [address] No Panel InformationOrdered By: Britney Yu on 10-26-2023 Estimated GFR (CKD-EPI) 45.838 mL/Min [facility] Creatinine Clearance (Chem N/A [facility] Potassium [Moles/volume] in Serum or PlasmaOrdered By: Britney Yu on 10-26-2023 Potassium [Moles/Vol] 5.1 mmol/L Normal 3.5-5.1 [facility] Comment on above: Performed By: #### B MP #### [address] Serum or plasma anion gap de terminationOrdered By: Britney Yu on 10-26-2023 Anion gap [Moles/Vol] 13.1 mmol/L Normal 6.0-15.0 [facility] Comment on above: Performed By: #### B MP #### [address] Sodium [Moles/volume] in Ser um or PlasmaOrdered By: Britney Yu on 10-26-2023 Sodium [Moles/Vol] 142 mmol/L Normal 136-145 [facility] Comment on above: Performed By: #### B MP #### [facility] [address] [place] [address] Urea nitrogen [Mass/volume] in Serum or PlasmaOrdered By: Britney Yu on 10-26-2023 Urea nitrogen [Mass/Vol] 28 mg/dL High 7-25 [facility] Comment on above: Performed By: #### B MP #### [facility] [address] [place] [address] Capillary blood glucose katie urement by glucometer (mass/volume)Ordered By: Rodney Victor on 10-21-2023 Glucose [Mass/Vol] 155 mg/dL Normal [facility] Comment on above: Random Glucose Refer ence Range is dependent on time and content of last meal. Glucose of more than 200 mg/dL in a nonstressed, ambulatory subject supports the diagnosis of Diabetes Mellitus. Result Comment: [facility] Glucose Reference Range is dependent on time and content of last meal. Glucose of more than 200 mg/dL in a nonstressed, ambulatory subject supports the diagnosis of Diabetes Mellitus. PERFORMED BY: [place] [address] PATHOLOGIST [employer] OPERATOR TRAN RANDOLPH M.D. Performed By: #### G ESTRELLITA #### Point of Care testing , Gerhard 10-21-2023 L Specimen: [id number] Received: 10/21/23 Status: DONTAE Rangel Num: [id number] Spec Type: Surgical Subm Dr: Rodney Victor MD Tissues: A Colon Biopsy (CECAL POLYP) B Colon Biopsy (TRANSV POLYP) Procedures: HE/4, Gross/Micro L4/2 Age/ Patient Sex Location Account Attending Physician Td Giraldo/Homero [id number] Rodney Victor MD SPEC NUM: [id number] RECD: 10/21/23 STATUS: DONTAE RANGEL NUM: [id number] EBONI: 10/21/23- [facility] DR: Rodney Victor MD ENTERED: 10/21/[address] [facility] [address]: [place] TYPE: Surgical DEPT: S ORDERED: [...] submitted in one cassette labeled B1. Specimen: [id number] Received: 10/21/23 Status: DONTAE Rangel Num: [id number] Spec Type: Surgical Subm Dr: Rodney Victor MD Tissues: A Colon Biopsy (CECAL POLYP) B Colon Biopsy (TRANSV POLYP) Procedures: HE/Erick, Gross/Micro L4/2 Patient: Td Giraldo [id number] (Continued) Specimen: [id number] Received: 10/21/23 (Continued) Signed (signature on file) Beto Torres MD 10/23/23 1144 Specimen: [id number] Received: 10/21/23 Status: DONTAE Rangel Num: [id number] Spec Type: Surgical Subm Dr: Rodney Victor MD Tissues: A Colon Biopsy (CECAL POLYP) B Colon Biopsy (TRANSV POLYP) Procedures: HE/Erick, Gross/Micro L4/2 Patient: Td Giraldo [id number] (Continued) Specimen: [id number] Received: 10/21/23 (Continued) Microscopic Description A. Two H E slides reviewed. The microscopic examination confirms the diagnosis. B. Two H E slides reviewed. The microscopic examination confirms the diagnosis. CPT Codes 07070t7 Specimen: [id number] Received: 10/21/23 Status: DONTAE Rangel Num: [id number] Spec Type: Surgical Subm Dr: Rodney Victor MD Tissues: A Colon Biopsy (CECAL POLYP) B Colon Biopsy (TRANSV POLYP) Procedures: HE/4, Gross/Micro L4/2 Patient: Td Giraldo [id number] (Continued) Signed (signature on file) Beto Torres MD 10/23/23 1144 Normal [facility] Glucose - FINGER STICKon Glucose [Mass/Vol] 215 mg/dL [facility] Other US renal BIon 09-17-2023 US renal BI [address] [address] Ultrasound Report Signed Patient: Td Giraldo MR#: [id number] : 1950 Acct:[id number] Age/Sex: 72 / M ADM Date: 09/17/23 Loc: Room: Type: REG CLI Attending Dr: Tj Solis MD Ordering Provider: [...] No acute findings. Impression dictated by: Tobias Hanh Jr., D.O.09/17/2023 3:32 PM Dictation Location: [place] [address] Tech: Edie Lala Transcribed By: MOE 09/17/23 1532 Dictated By: Tobias Hahn Jr, DO 09/17/23 1532 Signed By: 09/17/23 1532 Normal [facility] Tobacco Screening.on 023 Fall risk assessment a) No falls within the last year [facility] [employer] 250 DO Work Phone: Tobacco use status CPHS b) No M [facility] [employer] 250 DO Work Phone: Office Visit (Cardiology)on [...] Patient is no longer receiving care from [place] clinic: Transferred care to [facility] with new patient assessment by Dr. Osborn [...] January, there has been further prolongation of DE interval and mild elongation of QRS duration. [...] a diabe (more content not included)... Normal [place] Tobacco Screening.on 023 Tobacco use status CPHS b) No M [facility] [employer] 250 DO Work Phone: NO MUGA SCAN INJECTIONon [facility] MUGA SCAN INJECTION Patient Name: ADRIEL GIRALDO STUDY: MUGA Performing facility: [facility], [address], [address], [place] [address] [facility] Provider: Odilia Mackenzie RN, ROCK CONTRACTOR PCP: Dr. Sam Perez Supervising provider: Jemima Gastelum MD INDICATION: Cardiomyopathy HISTORY: Gender: M; Age: 72 y/o ; Height: 0 cm; Weight: 131.712971 kg. High Cholesterol; HTN; Denies smoking. COMPARISON: Previous nuclear testing completed [id number] MPI EF=31% at [facility]. Previous echo testing completed [id number] EF= 25-30% at [facility]. ACCESSION NUMBER(S): [id number]; [id number] ORDERING CLINICIAN: ODILIA MACKENZIE TECHNIQUE: The patient received an IV injection of 3 ml of stannous pyrophosphate (PYP) using the in-vivo method of labeling red blood cells. After 15 minutes the patient received another IV injection of 26.1 mCi of Technetium 99m pertechnetate. Planar images of the left ventricle were obtained in the [place] 45, Lt Lateral and anterior projections. FINDINGS: The right ventricle was normal. The left ventricle was mildly dilated in size. Regional wall motion was global. Global resting LVEF was abnormal- at 27%. IMPRESSION: Normal resting right ventricular function. Abnormalresting left ventricular function. Left ventricular ejection fraction is 27%. No previous study available for comparison Electronically signed by: JEMIMA GASTELUM MD Normal [facility] No Panel Informationon 04-27 [facility] Work Phone: IMMUNOFIXATION (EMILY), URINEo n 04-15-2023 EMILY Interpretation:U Comment Normal [facility] Comment on above: Result Comment: No m onoclonality detected. Performed By: #### I MUNFXU #### [facility] [address] [place] [address] Dr. Santos Mchugh PROTEIN ELECTROPHERESIS URIN E RANDOMon 04-15-2023 Albumin, U 66.6 % Normal [facility] Comment on above: Performed By: #### U PTE #### [facility] [address] [place] [address] [address] Santos Mchugh Alpha-1 Globulin U 4.9 % Normal [facility] Comment on above: Performed By: #### U PTE #### [facility] [address] [place] [address] [address] Santos Mchugh Alpha-2 Glubulin U 7.5 % Normal [facility] Comment on above: Performed By: #### U PTE #### [facility] [address] [place] [address] [address] Santos Mchugh Beta Globulin, U 12.9 % Normal [facility] Comment on above: Performed By: #### U PTE #### [facility] [address] [place] [address] [address] Santos Mchugh Gamma Globulin U 8.1 % Normal [facility] Comment on above: Performed By: #### U PTE #### [facility] [address] [place] [address] Dr. Santos Mchugh M-Tavo, % Not Observed Normal Not Observed [facility] Comment on above: Performed By: #### U PTE #### [facility] [address] [place] [address] Dr. Santos Mchugh PDF . Normal [facility] Comment on above: Performed By: #### U PTE #### [facility] [address] [place] [address] Dr. Santos Mchugh Please note: Comment Normal [facility] Comment on above: Result Comment: Prot ein electrophoresis scan will follow via computer, mail, or purchasing associate delivery. Performed By: #### U PTE #### [facility] [address] [place] [address] Dr. Santos Mchugh Protein (U) [Mass/Vol] 64.1 mg/dL Normal Not Estab. Th [facility] Comment on above: Performed By: #### U PTE #### [facility] [address] [place] [address] Dr. Santos Mchugh FREE LIGHT CHAINS PLUS RATIO on 04-14-2023 Free Meservey Lt Chains,S 49.2 mg/L Critically high 3.3-19.4 [facility] Comment on above: Performed By: #### F REELIT #### [facility] [address] [place] [address] [address] Santos Mchugh Free Lambda Lt Chains,S 19.3 mg/L Normal 5.7-26.3 [facility] Comment on above: Performed By: #### F REELIT #### [facility] [address] [place] [address] [address] Santos Mchugh Meservey/Lambda Ratio, S 2.55 Critically high 0.26-1.65 [facility] Comment on above: Performed By: #### F REELIT #### [facility] [address] [place] [address] [address] Santos Mchugh IMMUNOFIXATION (EMILY), SERUMo n 04-14-2023 IMMUNOFIXATION RESULT Comment Normal [facility] Comment on above: Result Comment: No m onoclonality detected. Performed By: #### U AMIC #### [facility] [address] [place] [address] Dr. Santos Mchugh Immunoglobulin A, Qn, Serum 186 mg/dL Normal 61-437 [facility] Comment on above: Performed By: #### U AMIC #### [facility] [address] [place] [address] Dr. Santos Mchugh Immunoglobulin G, Qn, Serum 854 mg/dL Normal 603-1613 [facility] Comment on above: Performed By: #### U AMIC #### [facility] [address] [place] [address] [address] Santos Mchugh Immunoglobulin M, Qn, Serum 62 mg/dL Normal 15-143 [facility] Comment on above: Performed By: #### U AMIC #### [facility] [address] [place] [address] [address] Santos Mchugh PROTEIN ELECTROPHERESISon Albumin [Mass/Vol] 3.5 g/dL Normal 2.9-4.4 [facility] Comment on above: Performed By: #### P RTELEC #### [facility] [address] [place] [address] Dr. Santos Mchugh Albumin/Globulin [Mass ratio] 1.1 {ratio} Normal 0.7-1.7 [facility] Comment on above: Performed By: #### P RTELEC #### [facility] [address] [place] [address] [address] Santos Mchugh Bjcmx-6-Qcxfodhi 0.2 g/dL Normal 0.0-0.4 [facility] Comment on above: Performed By: #### P RTELEC #### [facility] [address] [place] [address] [address] Santos Mchugh Oaljz-6-Oslwfcap 0.9 g/dL Normal 0.4-1.0 [facility] Comment on above: Performed By: #### P RTELEC #### [facility] [address] [place] [address] Dr. Santos Mchugh Beta Globulin 1.2 g/dL Normal 0.7-1.3 [facility] Comment on above: Performed By: #### P RTELEC #### [facility] [address] [place] [address] Dr. Santos Mchugh Gamma Globulin 0.8 g/dL Normal 0.4-1.8 [facility] Comment on above: Performed By: #### P RTELEC #### [facility] [address] [place] [address] Dr. Santos Mchugh Globulin (S) [Mass/Vol] 3.1 g/dL Normal 2.2-3.9 [facility] Comment on above: Performed By: #### P RTELEC #### [facility] [address] [place] [address] Dr. Santos Mchugh M-Tavo Comment: Normal Not Observed [facility] Comment on above: Result Comment: SPE shows asymmetrical beta. Performed By: #### P RTELEC #### [facility] [address] [place] [address] Dr. Santos Mchugh PDF . Normal [facility] Comment on above: Performed By: #### P RTELEC #### [facility] [address] [place] [address] Dr. Santos Mchugh Please note: Comment Normal [facility] Comment on above: Result Comment: Prot ein electrophoresis scan will follow via computer, mail, or purchasing associate delivery. Performed By: #### P RTELEC #### [facility] [address] [place] [address] Dr. Santos Mchugh Protein [Mass/Vol] 6.6 g/dL Normal 6.0-8.5 [facility] Comment on above: Performed By: #### P RTELEC #### [facility] [address] [place] [address] Dr. Santos Mchugh PTH INTACTon 04-11-2023 PTH, Intact 52 pg/mL Normal 15-65 [facility] Comment on above: Performed By: #### P THINT #### [facility] [address] [place] [address] Dr. Santos Mchugh HEMOGRAM AND PLATELon 2022 Hematocrit (Bld) [Volume fraction] 41.9 % Critically low 42.0-54.0 [facility] Comment on above: Performed By: #### U AMIC #### [facility] [address] [place] [address] Dr. Santos Mchugh Hemoglobin (Bld) [Mass/Vol] 13.3 g/dL Critically low 14.0-18.0 [facility] Comment on above: Performed By: #### U AMIC #### [facility] [address] [place] [address] Dr. Santos Mchugh MCH (RBC) [Entitic mass] 26.3 pg Normal 25.9-34.0 [facility] Comment on above: Performed By: #### U AMIC #### [facility] [address] [place] [address] Dr. Santos Mchugh MCHC (RBC) [Mass/Vol] 31.7 g/dL Normal 29.9-35.2 [facility] Comment on above: Performed By: #### U AMIC #### [facility] [address] [place] [address] Dr. Santos Mchugh MCV (RBC) [Entitic vol] 82.8 fL Normal 80.0-94.0 [facility] Comment on above: Performed By: #### U AMIC #### [facility] [address] [place], [place] [address] Dr. Santos Mchugh PLT 167 103/ul Normal 150-450 [facility] Comment on above: Performed By: #### U AMIC #### [facility] [address] [place], [place] [address] Dr. Santos Mchugh RBC 5.06 106/ul Normal 4.70-6.10 [facility] Comment on above: Performed By: #### U AMIC #### [facility] [address] [place], [place] [address] Dr. Santos Mchugh WBC 5.2 103/ul Normal 4.0-11.0 [facility] Comment on above: Performed By: #### U AMIC #### [facility] [address] [place], [place] [address] Dr. Santos Mchugh Office Visit (Cardiology)on 04-10-2023 [...] with dilated LVEF 31%. I reviewed prior [place] cardiology note dated August 25, 2022. Patient [...] Patient is no longer receiving care from [place]: Transferred care to [facility] with new patient assessment by Dr. Osborn [...] reports that usually calibrated yearly by the [place] clinic, will no longer be seen in [...] side eff (more content not included)... Normal [place] RENAL FUNCTION PANELon 04-10 Albumin [Mass/Vol] 3.6 g/dL Normal 3.4-5.0 [facility] Comment on above: Performed By: #### U KAJAL, RENAL #### [facility] [address] [place] [address] [address] Santos Mchugh Calcium [Mass/Vol] 8.9 mg/dL Normal 8.5-10.1 [facility] Comment on above: Performed By: #### U KAJAL, RENAL #### [facility] [address] [place] [address] [address] Santos Mchugh Chloride [Moles/Vol] 103 mmol/L Normal 98-107 [facility] Comment on above: Performed By: #### U KAJAL, RENAL #### [facility] [address] [address] [address] Santos Mchugh CO2 [Moles/Vol] 28.4 mmol/L Normal 21.0-32.0 [facility] Comment on above: Performed By: #### U KAJAL, RENAL #### [facility] [address] [address] [address] Santos Mchugh Creatinine [Mass/Vol] 1.48 mg/dL Critically high 0.70-1.30 [facility] Comment on above: Performed By: #### U KAJAL, RENAL #### [facility] [address] [address] [address] Santos Mchugh EGFR-AF SPANISH 57 mL/min/1.73m2 Critically low >=60 [facility] Comment on above: Performed By: #### U KAJAL, RENAL #### [facility] [address] [address] [address] Santos Mchugh EGFR-NON AF SPANISH 47 mL/min/1.73m2 Critically low >=60 [facility] Comment on above: Performed By: #### U KAJAL, RENAL #### [facility] [address] [place] [address] Dr. Santos Mchugh Glucose [Mass/Vol] 122 mg/dL Critically high 74-106 [facility] Comment on above: Performed By: #### U KAJAL, RENAL #### [facility] [address] [address] [address] Santos Mchugh Phosphate [Mass/Vol] 3.9 mg/dL Normal 2.6-4.7 [facility] Comment on above: Performed By: #### U KAJAL, RENAL #### [facility] [address] [address] [address] Santos Mchugh Potassium [Moles/Vol] 4.5 mmol/L Normal 3.5-5.1 [facility] Comment on above: Performed By: #### U KAJAL, RENAL #### [facility] [address] [address] [address] Santos Mchugh Sodium [Moles/Vol] 140 mmol/L Normal 136-145 [facility] Comment on above: Performed By: #### U KAJAL, RENAL #### [facility] [address] [address] [address] Santos Mchugh Urea nitrogen [Mass/Vol] 23.0 mg/dL Critically high 7.0-18.0 [facility] Comment on above: Performed By: #### U KAJAL, RENAL #### [facility] [address] [address] [address] Santos Mchugh Tobacco Screening.on 023 Fall risk assessment a) No falls within the last year [facility] 250 DO Work Phone: Tobacco use status [facility]S b) [facility] Work [facility]: UA RANDOM W/MICROSCOPICon BACTERIA NONE SEEN Normal NONE SEEN [facility] Comment on above: Performed By: #### U AMIC #### [facility] [address] [place] [address] Dr. Santos Mchugh Bilirubin Ql (U) Negative Normal NEGATIVE [facility] Comment on above: Performed By: #### U AMIC #### [facility] [address] [place] [address] Dr. Santos Mchugh CAST NONE SEEN Normal NONE SEEN [facility] Comment on above: Performed By: #### U AMIC #### [facility] [address] [address] [address] Santos Mchugh Clarity (U) CLEAR Normal CLEAR [facility] Comment on above: Performed By: #### U AMIC #### [facility] [address] [address] [address] Santos Mchugh Color (U) LT. YELLOW Normal YELLOW [facility] Comment on above: Performed By: #### U AMIC #### [facility] [address] [address] [address] Santos Mchugh Crystals LM Nom (Urine sed) NONE SEEN Normal NONE SEEN [facility] Comment on above: Performed By: #### U AMIC #### [facility] [address] [place] [address] Dr. Santos Mchugh Epithelial cells LM Ql (Urine sed) NONE SEEN Normal NONE SEEN /RARE [facility] Comment on above: Performed By: #### U AMIC #### [facility] [address] [place] [address] Dr. Santos Mchugh Glucose Ql (U) Negative Normal NEGATIVE [facility] Comment on above: Performed By: #### U AMIC #### [facility] [address] [address] [address] Santos Mchugh Hemoglobin Ql (U) Negative Normal NEGATIVE [place] Comment on above: Performed By: #### U AMIC #### [facility] [address] [address] [address] Santos Mchugh Ketones Ql (U) Negative Normal NEGATIVE [facility] Comment on above: Performed By: #### U AMIC #### [facility] [address] [address] [address] Santos Mchugh LEUKOCYTES Negative Normal NEGATIVE [facility] Comment on above: Performed By: #### U AMIC #### [facility] [address] [address] [address] Santos Mchugh MUCOUS NONE SEEN Normal NONE SEEN [facility] Comment on above: Performed By: #### U AMIC #### [facility] [address] [address] [address] Santos Mchugh Nitrite Ql (U) Negative Normal NEGATIVE [facility] Comment on above: Performed By: #### U AMIC #### [facility] [address] [address] [address] Santos Mchugh pH (U) 6.0 [pH] Normal 5-9 [facility] Comment on above: Performed By: #### U AMIC #### [facility] [address] [address] [address] Santos Mchugh RBC 0-2 Normal 0-2 [facility] Comment on above: Performed By: #### U AMIC #### [facility] [address] [address] [address] Santos Mchugh SPEC GRAVITY 1.015 Normal 1.005-<=1.02 5 [facility] Comment on above: Performed By: #### U AMIC #### [facility] [address] [place] [address] Dr. Santos Mchugh UA PROTEIN 100 mg/dl Abnormal NEGATIVE/ TRACE [facility] Comment on above: Performed By: #### U AMIC #### [facility] [address] [address] [address] Santos Mchugh Urobilinogen Qn (U) 0.2 {Dolores'U}/dL Normal 0.2 - 1. 0 [facility] Comment on above: Performed By: #### U AMIC #### [facility] [address] [place] [address] Dr. Santos Mchugh WBC NONE SEEN Normal NONE SEEN [facility] Comment on above: Performed By: #### U AMIC #### [facility] [address] [address] [address] Santos Mchugh URIC ACID SERUMon 04-10-2023 Urate [Mass/Vol] 7.0 mg/dL Normal 3.5-7.2 [facility] Comment on above: Performed By: #### U KAJAL, RENAL #### [facility] [address] [place] [address] Dr. Santos Mchugh URINE T PROTEIN CREAT RATIOo n 04-10-2023 Protein (U) [Mass/Vol] 68.1 mg/dL Critically high <=12.0 [facility] Comment on above: Performed By: #### U RTPCR #### [facility] [address] [place] [address] Dr. Santos Mchugh UR PROT CREAT RAT 0.97 Normal [place] Comment on above: Performed By: #### U RTPCR #### [facility] [address] [place] [address] Dr. Santos Mchugh URINE CREAT 70.53 mg/dL Normal 20.00-300.00 [facility] Comment on above: Performed By: #### U RTPCR #### [facility] [address] [place] [address] Dr. Santos Mchugh VITAMIN D 25 OHon 04-10-2023 VIT D 25-OH 41.0 ng/mL Normal [facility] Comment on above: Performed By: #### V ITAD #### [facility] [address] [place] [address] Dr. Santos Mchugh VIT D RANGES SEE BELOW Normal [facility] Comment on above: Result Comment: <20 ng/mL Vit D deficient 20 - <30 ng/mL Vit D insufficient 30 - 100 ng/mL Vit D sufficient >100 ng/mL Potential Toxicity Performed By: #### V ITAD #### [facility] [address] [address] [address] Santos Mchugh [facility] CARDIAC STRESS/REST INJE CTIONon 03-31-2023 [facility] CARDIAC STRESS/REST INJECTION Patient Name: ADRIEL GIRALDO STUDY: MYOCARDIAL PERFUSION STRESS TEST WITH LEXISCAN Performing facility: [facility], [address], [address], [place] [address] [facility] Provider: Lashell Osborn MD PCP: Dr. Sam Perez Supervising provider: Jemima Gastelum MD INDICATION: Abnormal EKG; Pre-operative risk assessment for Right knee scheduled at [facility] on TBD. HISTORY: Gender: M; Age: 72 y/o ; Height: 0 cm; Weight: 131.581765 kg. Abnormal EKG; High Cholesterol; Diabetes; HTN; Denies smoking. COMPARISON: No comparison. ACCESSION NUMBER(S): [id number]; [id number]; [id number] ORDERING CLINICIAN: LASHELL OSBORN TECHNIQUE: ONE DAY [...] Electronically signed by: JEMIMA GASTELUM MD Normal [facility] No Panel Informationon 03-31 FINAL REPORT Interpreted by: JEMIMA GASTELUM MD 04/01/23 16:28 Patient Name: ADRIEL GIRALDO STUDY: MYOCARDIAL PERFUSION STRESS TEST WITH LEXISCAN Performing facility: [facility], [address] [place] [address] Normal -[facility] 250 DO Work Phone: Office Visit (Cardiology)on 01-23-2023 Follow-up visit Diagnoses/Problems [...] evaluation in a few years. Initial visit: [facility]. Has a reported hx of CHF [...] TabletTAKE 1.5 TABLET 3 times daily Saw Mendota 1000 MG Oral CapsuleTAKE DIRECTED. Vitamin D3 [...] Signs Recorded: 23Jan2023 09:16AM Heart Rate63, Apical Ejcutqgg913, LUE, Sitting Jrxxjlorq62, LUE, Sitting Height6 ft 2 in Cvxgln487 lb BMI Urmcgnmorz22.75 kg/m2 BSA Calculated2.56 Tobacco Useb) No PHQ-2 [...] Will c (more content not included)... Normal [place] Tobacco Screening.on 023 Adult depression screening assessment No [facility] [employer] [facility] 250 DO Work Phone: Fall risk assessment a) No falls within the last year [facility] 250 DO Work Phone: Tobacco use status CPHS b) No M [facility] 250 DO Work Phone: MRI Knee w/o [...] by Abhinav Muller on 01/07/2023 1009 Normal [facility] Agency Service Representative Office Visit (Cardiology)on 12-26-2022 Follow-up visit Diagnoses/Problems Assessed Cardiomyopathy (425.4) (I42.9) CHF (NYHA class II, ACC/AHA stage C) (428.0) (I50.9) Hyperlipidemia (272.4) (E78.5) Primary hypertension (401.9) (I10) Class 2 obesity with body mass index (BMI) of 37.0 to 37.9 in adult (278.00,V85.37) (E66.9,Z68.37) Obstructive sleep apnea, adult (327.23) (G47.33) Never a smoker Orders Cardiomyopathy IO EKG Electrocardiogram- 12 Lead; Status:Complete; Done: [id number] Cardiomyopathy, Primary hypertension Renew: Carvedilol 12.5 MG [...] For - Scheduling,Retrospec tive Authorization Requested for: [id number] SocHx: Never a smoker Tobacco Use Screening; Status:Complete; Done: [id number] Patient Instructions Please bring all medicines, vitamins, [...] seen for a consultation for CHF- former [place] [facility]. History of Present Illness 72 yo [...] TabletTAKE 1.5 TABLET 3 times daily Saw Mendota 1000 MG Oral CapsuleTAKE DIRECTED. Vitamin D3 [...] negative for complaint. Vitals Vital Signs Recorded: 93Pbp4137 10:52AMRecorded: 59Cwm3611 10:51AM Hzeimqdp126, LUE, Idlfzvj487, RUE, Sitting Woqthijty83, LUE, Spvxgbf95, RUE, Sitting Heart Rate61, Apical Height6 ft 2 in Mwnhmr377 lb BMI Eaqcqzrzbk07.75 kg/m2 BSA Calculated2.56 Tobacco Useb) No PHQ-2 [...] current therap (more content not included)... Normal [place] Tobacco Screening.on 023 Adult depression screening assessment No [facility] [employer] 250 DO Work Phone: Fall risk assessment a) No falls within the last year [facility] 250 DO Work Phone: Tobacco use status CPHS b) No M [facility] 250 DO Work Phone: Quick Fluon 09-08-2022 FLUAV Ab CF (S) [Titer] Negative N aCon Other FLUBV Ab CF (S) [Titer] Negative N [facility] [employer] Other SARS-CoV-2 (COVID-19) RNA NA A+probe Ql (Resp)on 09-08-2022 SARS-CoV-2 (COVID-19) RNA HECTOR+probe Ql (Unsp spec) Positive [facility] [employer] Other Auth for Release of Medical Recordson 11-15-2020 Auth for Release of Medical Records [id number] #1.00CD:127 Normal [facility] Formson 09-11-2020 Forms [id number] #1.00CD:127 Normal [facility] Physician Referralon 020 Physician Referral [id number]# 1.00CD:127 Normal [facility] Ambulatory Clinical Summaryo n 09-07-2020 Ambulatory Clinical Summary {[id number] [facility] Patient Educationon 09-07-20 Patient Education Family Medicine Benign Prostatic Hyperplasia [...] the prostate gland smaller. The herb saw SeerGateo is commonly used. ? If complete blockage [...] Document Reviewed: 07/07/2008 ExitCare? Patient Information ?2013 [place]. Erectile Dysfunction Erectile dysfunction (ED) is the [...] Document Reviewed: 02/22/2012 ExitCare? Patient Information ?2013 [place]. Normal [facility] Urology Office/Clinic Noteon 09-07-2020 Urology [...] use pde5s due to nitro meds. 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 Reviewed UA. There have been no [...] that he has PSA tony at the [place], and states that the levels are normal. SHANELLE was done today and was negative for any nodules. I have reviewed the previous health record information and history for this patient from Dr. Jackson Follow-up With When Contact Information JEAN CLAUDE JARA, Kevin Roberts Only if needed [facility] [address], [place] [address] [phone] Additional Instructions: Patient Education Benign Prostatic Hyperplasia [...] Dipstick: 2+ (100 mg/dl) (09/07/20 10:27:00) Specific [place] Urine Dipstick: 1.025 (09/07/20 10:27:00) Urine Appearance Urine Dipstick: Clear (09/07/20 10:27:00) Urine Color Urine Dipstick: Yellow (09/07/20 10:27:00) Urobilinogen Urine Dipstick: Normal 0.2-1 EU/dl (09/07/20 10:27:00) pH Urine Dipstick: 5.5 (09/07/20 10:27:00) Normal [facility] Comment on above: Result Comment: Elec tronically Signed By: JEAN CLAUDE JARA, Kevin Roberts\.br\Date and Time Signed: 09/07/20 11:19 EDT\.br\Electronically Co-Signed By: Lashell Kimbrough MA\.br\Date and Time Co-Signed: 09/07/20 11:16 EDT Vital Signs Date Time Vital Sign Value Performing Clinician Facility 04-27-2024 11:56-0400 Body height 185.42 cm [facility] 04-27-2024 11:56-0400 Body mass index (BMI) [Ratio] 36.6 kg/m2 [facility] 04-27-2024 11:56-0400 Body weight 126.09 kg [facility] 04-27-2024 11:56-0400 Diastolic blood pressure 68 mm[Hg] [facility] 04-27-2024 11:56-0400 Heart rate 64 /min [facility] 04-27-2024 11:56-0400 Systolic blood pressure 118 mm[Hg] [facility] 04-12-2024 09:55-0400 Body height 185.42 cm MD Jun Perez Work Phone: [facility] 04-12-2024 09:55-0400 Body mass index (BMI) [Ratio] 36.6 kg/m2 MD Jun Perez Work Phone: [facility] 04-12-2024 09:55-0400 Body weight 126.09 kg MD Jun Perez Work Phone: [facility] 04-12-2024 09:55-0400 Diastolic blood pressure 74 mm[Hg] MD Jun Perez Work Phone: [facility] 04-12-2024 09:55-0400 Heart rate 59 /min MD Jun Perez Work Phone: [facility] 04-12-2024 09:55-0400 Systolic blood pressure 133 mm[Hg] MD Jun Perez Work Phone: [facility] 03-24-2024 10:34-0400 Body height 185.42 cm MD Jun Perez Work Phone: [facility] 03-24-2024 10:34-0400 Body mass index (BMI) [Ratio] 36.5 kg/m2 MD Jun Perez Work Phone: [facility] 03-24-2024 10:34-0400 Body weight 125.64 kg MD Jun Perez Work Phone: [facility] 03-24-2024 10:34-0400 Diastolic blood pressure 66 mm[Hg] MD Jun Perez Work Phone: [facility] 03-24-2024 10:34-0400 Heart rate 83 /min MD Jun Perez Work Phone: [facility] 03-24-2024 10:34-0400 Respiratory rate 18 /min MD Jun Perez Work Phone: [facility] 03-24-2024 10:34-0400 SaO2% (BldA) [Mass fraction] 97 % MD Jun Perez Work Phone: [facility] 03-24-2024 10:34-0400 Systolic blood pressure 145 mm[Hg] MD Jun Perez Work Phone: [facility] 03-22-2024 11:20-0400 Body height 185.42 cm MD Jun Perez Work Phone: [facility] 03-22-2024 11:20-0400 Body mass index (BMI) [Ratio] 36.3 kg/m2 MD Jun Perez Work Phone: [facility] 03-22-2024 11:20-0400 Body weight 124.73 kg MD Jun Perez Work Phone: [facility] 03-22-2024 11:20-0400 Diastolic blood pressure 72 mm[Hg] MD Jun Perez Work Phone: [facility] 03-22-2024 11:20-0400 Heart rate 53 /min MD Jun Perez Work Phone: [facility] 03-22-2024 11:20-0400 Respiratory rate 18 /min MD Jun Perez Work Phone: [facility] 03-22-2024 11:20-0400 SaO2% (BldA) [Mass fraction] 98 % MD Jun Perez Work Phone: [facility] 03-22-2024 11:20-0400 Systolic blood pressure 140 mm[Hg] MD Jun Perez Work Phone: [facility] 01-11-2024 11:46-0500 Body height 185.42 cm MD Jun Perez Work Phone: [facility] 01-11-2024 11:46-0500 Body mass index (BMI) [Ratio] 36.3 kg/m2 MD Jun Perez Work Phone: [facility] 01-11-2024 11:46-0500 Body weight 125.19 kg MD Jun Perez Work Phone: [facility] 01-11-2024 11:46-0500 Diastolic blood pressure 78 mm[Hg] MD Jun Perez Work Phone: [facility] 01-11-2024 11:46-0500 Heart rate 68 /min MD Jun Perez Work Phone: [facility] 01-11-2024 11:46-0500 Respiratory rate 18 /min MD Jun Perez Work Phone: [facility] 01-11-2024 11:46-0500 SaO2% (BldA) [Mass fraction] 98 % MD Jun Perez Work Phone: [facility] 01-11-2024 11:46-0500 Systolic blood pressure 142 mm[Hg] MD Jun Perez Work Phone: [facility] 01-05-2024 11:58-0500 Body height 185.42 cm MD Jun Perez Work Phone: [facility] 01-05-2024 11:58-0500 Body mass index (BMI) [Ratio] 36.6 kg/m2 MD Jun Perez Work Phone: [facility] 01-05-2024 11:58-0500 Body temperature 96.9 [degF] MD Jun Perez Work Phone: [facility] 01-05-2024 11:58-0500 Body weight 125.7 kg MD Jun Perez Work Phone: [facility] 01-05-2024 11:58-0500 Diastolic blood pressure 77 mm[Hg] MD Jun Perez Work Phone: [facility] 01-05-2024 11:58-0500 Heart rate 55 /min MD Jun Perez Work Phone: [facility] 01-05-2024 11:58-0500 Respiratory rate 18 /min MD Jun Perez Work Phone: [facility] 01-05-2024 11:58-0500 SaO2% (BldA) [Mass fraction] 98 % MD Jun Perez Work Phone: [facility] 01-05-2024 11:58-0500 Systolic blood pressure 131 mm[Hg] MD Jun Perez Work Phone: [facility] 12-31-2023 11:36-0500 Body height 185.42 cm MD Jun Perez Work Phone: [facility] 12-31-2023 11:36-0500 Body mass index (BMI) [Ratio] 36.4 kg/m2 MD Jun Perez Work Phone: [facility] 12-31-2023 11:36-0500 Body weight 125.24 kg MD Jun Perez Work Phone: [facility] 12-31-2023 11:36-0500 Diastolic blood pressure 70 mm[Hg] MD Jun Perez Work Phone: [facility] 12-31-2023 11:36-0500 Heart rate 60 /min MD Jun Perez Work Phone: [facility] 12-31-2023 11:36-0500 Systolic blood pressure 131 mm[Hg] MD Jun Perez Work Phone: [facility] 12-22-2023 10:00-0500 Body height 185.42 cm Tondra Mapus Other [employer] Other 12-22-2023 10:00-0500 Body mass index (BMI) [Ratio] 36.75 kg/m2 Tondra Mapus Other [employer] Other 12-22-2023 10:00-0500 Body weight 126.37 kg Tondra Mapus Other [employer] Other 12-22-2023 10:00-0500 Diastolic blood pressure 76 mm[Hg] Tondra Mapus Other [employer] Other 12-22-2023 10:00-0500 Respiratory rate 18 /min Tondra Mapus Other [employer] Other 12-22-2023 10:00-0500 SaO2% (BldA) [Mass fraction] 98 % Tondra Mapus Other [employer] Other 12-22-2023 10:00-0500 Systolic blood pressure 137 mm[Hg] Tondra Mapus Other [employer] Other 12-14-2023 11:20-0500 Body height 185.42 cm Jose Yu Other [facility] 12-14-2023 11:20-0500 Body mass index (BMI) [Ratio] 36.94 kg/m2 Jose Adrianaomia Other [employer] Other 12-14-2023 11:20-0500 Body weight 127.01 kg Jose Adrianaomia Other [employer] Other 12-14-2023 11:20-0500 Body weight 127 kg MD Jun Perez Work Phone: [facility] 12-14-2023 11:20-0500 Diastolic blood pressure 84 mm[Hg] Jose Koromia Other [facility] 12-14-2023 11:20-0500 Respiratory rate 18 /min Jose Koromia Other [facility] [employer] Other 12-14-2023 11:20-0500 SaO2% (BldA) [Mass fraction] 98 % Jose Koromia Other [facility] [employer] Other 12-14-2023 11:20-0500 Systolic blood pressure 156 mm[Hg] Jose Koromia Other [facility] 11-18-2023 11:20-0500 Body height 185.42 cm Jose Koromia Other [facility] 11-18-2023 11:20-0500 Body mass index (BMI) [Ratio] 36.15 kg/m2 Jose Koromia Other [facility] [employer] Other 11-18-2023 11:20-0500 Body weight 124.29 kg Jose Koromia Other [facility] [employer] Other 11-18-2023 11:20-0500 Body weight 124.28 kg MD Jun Perez Work Phone: [facility] 11-18-2023 11:20-0500 Diastolic blood pressure 70 mm[Hg] Jose Koromia Other [facility] 11-18-2023 11:20-0500 Respiratory rate 18 /min Jose Koromia Other [facility] [employer] Other 11-18-2023 11:20-0500 SaO2% (BldA) [Mass fraction] 96 % Jose Koromia Other [facility] [employer] Other 11-18-2023 11:20-0500 Systolic blood pressure 132 mm[Hg] Jose Yu Other [facility] 10-31-2023 12:15-0500 Body height 185.42 cm MD Jun Perez Work Phone: [facility] 10-31-2023 12:15-0500 Body weight 127 kg MD Jun Perez Work Phone: [facility] 10-31-2023 12:15-0500 Diastolic blood pressure 71 mm[Hg] MD Jun Perez Work Phone: [facility] 10-31-2023 12:15-0500 Systolic blood pressure 130 mm[Hg] MD Jun Perez Work Phone: [facility] 10-21-2023 12:17-0500 Diastolic blood pressure 78 mm[Hg] MD Jun Perez Work Phone: [facility] 10-21-2023 12:17-0500 Heart rate 54 /min MD Jun Perez Work Phone: [facility] 10-21-2023 12:17-0500 Respiratory rate 16 /min MD Jun Perez Work Phone: [facility] 10-21-2023 12:17-0500 SaO2% (BldA) [Mass fraction] 98 % MD Jun Perez Work Phone: [facility] 10-21-2023 12:17-0500 Systolic blood pressure 144 mm[Hg] MD Jun Perez Work Phone: [facility] 10-21-2023 10:35-0500 Body height 187.96 cm MD Jun Perez Work Phone: [facility] 10-21-2023 10:35-0500 Body temperature 97.8 [degF] MD Jun Perez Work Phone: [facility] 10-21-2023 10:35-0500 Body weight 121.1 kg MD Jun Perez Work Phone: [facility] 10-15-2023 11:23-0500 Body height 188 cm [...] Body height 185.42 cm Tondra Mapus Other [employer] Other 09-17-2023 09:45-0400 Body mass index (BMI) [Ratio] 37.33 kg/m2 Tondra Mapus Other [employer] Other 09-17-2023 09:45-0400 Body weight 128.37 kg Tondra Mapus Other [employer] Other 09-17-2023 09:45-0400 Diastolic blood pressure 68 mm[Hg] Tondra Mapus Other [employer] Other 09-17-2023 09:45-0400 Respiratory rate 18 /min Tondra Mapus Other [employer] Other 09-17-2023 09:45-0400 SaO2% (BldA) [Mass fraction] 96 % Tondra Mapus Other [employer] Other 09-17-2023 09:45-0400 Systolic blood pressure 128 mm[Hg] Tondra Mapus Other [employer] Other 06-08-2023 11:25-0400 Body height 187.96 cm Jun Perez Work Phone: [facility] 250 DO Work Phone: 06-08-2023 11:25-0400 Body mass index (BMI) [Ratio] 36.72 kg/m2 Jun Perez Work Phone: [facility] 250 DO Work Phone: 06-08-2023 11:25-0400 Body surface area Derived from formula 2.53 m2 Jun Perez Work Phone: [facility] 250 DO Work Phone: 06-08-2023 11:25-0400 Body weight 129.73 kg Jun Perez Work Phone: [facility] 250 DO Work Phone: 06-08-2023 11:25-0400 Diastolic blood pressure 68 mm[Hg] Jun Perez Work Phone: [facility] DO Work Phone: 06-08-2023 11:25-0400 Heart rate 56 /min Jun Perez Work Phone: [facility] 250 DO Work Phone: 06-08-2023 11:25-0400 Systolic blood pressure 136 mm[Hg] Jun Perez Work Phone: [facility] DO Work Phone: 05-14-2023 10:45-0400 Body height 187.96 cm Jun Perez Work Phone: [facility] 250 DO Work Phone: 05-14-2023 10:45-0400 Body mass index (BMI) [Ratio] 36.85 kg/m2 Jun Perez Work Phone: [facility] 250 DO Work Phone: 05-14-2023 10:45-0400 Body surface area Derived from formula 2.53 m2 Jun Perez Work Phone: [facility] 250 DO Work Phone: 05-14-2023 10:45-0400 Body weight 130.18 kg Jun Perez Work Phone: [facility] [place] 250 DO Work Phone: 05-14-2023 10:45-0400 Diastolic blood pressure 80 mm[Hg] Jun Perez [facility]: [facility] Work Phone: 05-14-2023 10:45-0400 Heart rate 56 /min Jun Perez Work Phone: [facility] [place] 250 DO Work Phone: 05-14-2023 10:45-0400 Systolic blood pressure 128 mm[Hg] Jun Perez Work Phone: [facility] 250 DO Work Phone: 04-17-2023 09:15-0400 Body height 185.42 cm Jun Perez Other [employer] Other 04-17-2023 09:15-0400 Body mass index (BMI) [Ratio] 38.52 kg/m2 Jun Perez Other [employer] Other 04-17-2023 09:15-0400 Body weight 132.45 kg Jun Perez Other [facility] Other 04-17-2023 09:15-0400 Diastolic blood pressure 77 mm[Hg] Jun Perez Other [employer] Other 04-17-2023 09:15-0400 Systolic blood pressure 146 mm[Hg] Jun Perez Other [facility] Other 04-16-2023 11:40-0400 Body height 185.42 cm Tj Solis Other [facility] Other 04-16-2023 11:40-0400 Body mass index (BMI) [Ratio] 39.14 kg/m2 Tj Mayo Other [employer] Other 04-16-2023 11:40-0400 Body temperature 97.8 [degF] Tj Mayo Other [employer] Other 04-16-2023 11:40-0400 Body weight 134.58 kg Tj Mayo Other [facility] Other 04-16-2023 11:40-0400 Diastolic blood pressure 80 mm[Hg] Tj Mayo Other [facility] Other 04-16-2023 11:40-0400 Respiratory rate 18 /min Tj Mayo Other [facility] Other 04-16-2023 11:40-0400 SaO2% (BldA) [Mass fraction] 97 % Tj Mayo Other [facility] Other 04-16-2023 11:40-0400 Systolic blood pressure 144 mm[Hg] Tj Mayo Other [facility] Other 04-10-2023 15:44-0400 Body height 187.96 cm Jun Perez Work Phone: [facility] 250 DO Work Phone: 04-10-2023 15:44-0400 Body mass index (BMI) [Ratio] 25.17 kg/m2 Jun Perez Work Phone: [facility] [facility] 250 DO Work Phone: 04-10-2023 15:44-0400 Body surface area Derived from formula 2.15 m2 Jun Perez Work Phone: [facility] [employer] 250 DO Work Phone: 04-10-2023 15:44-0400 Body weight 88.91 kg Jun Perez Work Phone: [facility] [employer] 250 DO Work Phone: 04-10-2023 15:44-0400 Diastolic blood pressure 72 mm[Hg] Jun Perez Work Phone: [facility] 250 DO Work Phone: 04-10-2023 15:44-0400 Heart rate 64 /min Jun Perez Work Phone: [facility] 250 DO Work Phone: 04-10-2023 15:44-0400 Systolic blood pressure 126 mm[Hg] Jun Perez Work Phone: [facility] 250 DO Work Phone: 02-17-2023 12:15-0400 Body height 185.42 cm Jun Perez Other [employer] [facility] [employer] Other 02-17-2023 12:15-0400 Body mass index (BMI) [Ratio] 38.39 kg/m2 Jun Perez Other [employer] Other 02-17-2023 12:15-0400 Body temperature 98.6 [degF] Jun Perez Other [employer] Other 02-17-2023 12:15-0400 Body weight 132 kg Jun Perez Other [employer] Other 02-17-2023 12:15-0400 Diastolic blood pressure 82 mm[Hg] Jun Perez Other [employer] Other 02-17-2023 12:15-0400 SaO2% (BldA) [Mass fraction] 97 % Jun Perez Other [employer] Other 02-17-2023 12:15-0400 Systolic blood pressure 122 mm[Hg] Jun Perez Other [employer] Other 02-04-2023 16:40-0400 Body height 185.42 cm Tj Mayo Other [employer] Other 02-04-2023 16:40-0400 Body mass index (BMI) [Ratio] 38.28 kg/m2 Tj Mayo Other [employer] Other 02-04-2023 16:40-0400 Body weight 131.63 kg Tj Mayo Other [employer] Other 02-04-2023 16:40-0400 Diastolic blood pressure 96 mm[Hg] Tj Mayo Other [employer] Other 02-04-2023 16:40-0400 Respiratory rate 18 /min Tj Mayo Other [employer] Other 02-04-2023 16:40-0400 SaO2% (BldA) [Mass fraction] 98 % Tj Mayo Other [employer] Other 02-04-2023 16:40-0400 Systolic blood pressure 164 mm[Hg] Tj Mayo Other [employer] Other 01-23-2023 09:16-0500 Body height 187.96 cm Jun Perez Work Phone: [place] [address] DO Work Phone: 01-23-2023 09:16-0500 Body mass index (BMI) [Ratio] 37.75 kg/m2 Jun Perez Work Phone: [facility] 250 DO Work Phone: 01-23-2023 09:16-0500 Body surface area Derived from formula 2.56 m2 Jun Perez Work Phone: [facility] DO Work Phone: 01-23-2023 09:16-0500 Body weight 133.36 kg Jun Perez Work Phone: [facility] DO Work Phone: 01-23-2023 09:16-0500 Diastolic blood pressure 82 mm[Hg] Jun Perez Work Phone: [facility] 250 DO Work Phone: 01-23-2023 09:16-0500 Heart rate 63 /min Jun Perez Work Phone: [facility] 250 DO Work Phone: 01-23-2023 09:16-0500 Systolic blood pressure 136 mm[Hg] Jun Perez Work Phone: [facility] DO Work Phone: 12-26-2022 10:52-0500 Diastolic blood pressure 80 mm[Hg] Jun Perez Work Phone: [facility] DO Work Phone: 12-26-2022 10:52-0500 Systolic blood pressure 148 mm[Hg] Jun Perez Work Phone: [facility] 250 DO Work Phone: 12-26-2022 10:51-0500 Body height 187.96 cm Jun Perez Work Phone: [facility] DO Work Phone: 12-26-2022 10:51-0500 Body mass index (BMI) [Ratio] 37.75 kg/m2 Jun Perez Work Phone: [facility] DO Work Phone: 12-26-2022 10:51-0500 Body surface area Derived from formula 2.56 m2 Jun Perez Work Phone: [facility] DO Work Phone: 12-26-2022 10:51-0500 Body weight 133.36 kg Jun Perez Work Phone: [facility] DO Work Phone: 12-26-2022 10:51-0500 Diastolic blood pressure 80 mm[Hg] Jun Perez Work Phone: [facility] DO Work Phone: 12-26-2022 10:51-0500 Heart rate 61 /min Jun Perez Work Phone: [facility] DO Work Phone: 12-26-2022 10:51-0500 Systolic blood pressure 146 mm[Hg] Jun Perez Work Phone: [facility] 250 DO Work Phone: 12-01-2022 16:00-0500 Body height 185.42 cm Jun Perez Other [facility] [employer] Other 12-01-2022 16:00-0500 Body mass index (BMI) [Ratio] 38.92 kg/m2 Jun Perez Other [facility] [employer] Other 12-01-2022 16:00-0500 Body weight 133.81 kg Jun Perez Other [employer] Other 12-01-2022 16:00-0500 Diastolic blood pressure 80 mm[Hg] Jun Perez Other [employer] Other 12-01-2022 16:00-0500 SaO2% (BldA) [Mass fraction] 98 % Jun Perez Other [employer] Other 12-01-2022 16:00-0500 Systolic blood pressure 140 mm[Hg] Jun Perez Other [employer] Other 11-20-2022 10:30-0500 Body height 187.96 cm Edie Morse Other [employer] Other 11-20-2022 10:30-0500 Body mass index (BMI) [Ratio] 37.61 kg/m2 Edie Morse Other [employer] Other 11-20-2022 10:30-0500 Body weight 132.9 kg Edie Morse Other [employer] Other 11-20-2022 10:30-0500 Diastolic blood pressure 79 mm[Hg] Edie Morse Other [employer] Other 11-20-2022 10:30-0500 Respiratory rate 20 /min Edie Morse Other [employer] Other 11-20-2022 10:30-0500 SaO2% (BldA) [Mass fraction] 98 % Edie Morse Other [employer] Other 11-20-2022 10:30-0500 Systolic blood pressure 146 mm[Hg] Edie Lito Other [employer] Other 09-08-2022 10:15-0400 Body height 187.96 cm Phyllis Reyes Other [employer] Other 09-08-2022 10:15-0400 Body mass index (BMI) [Ratio] 36.59 kg/m2 Phyllis Yoomond Other [employer] Other 09-08-2022 10:15-0400 Body temperature 97.6 [degF] Phyllis Yoomond Other [employer] Other 09-08-2022 10:15-0400 Body weight 129.28 kg Phyllis Yoomond Other [employer] Other 09-08-2022 10:15-0400 Diastolic blood pressure 59 mm[Hg] Phyllis Reyes Other [employer] Other 09-08-2022 10:15-0400 Respiratory rate 18 /min Phyllis Yoomond Other [employer] Other 09-08-2022 10:15-0400 SaO2% (BldA) [Mass fraction] 97 % Phyllis Amy Other [employer] Other 09-08-2022 10:15-0400 Systolic blood pressure 112 mm[Hg] Phyllis Amy Other [employer] Other 05-25-2022 13:35-0400 Body height 187.96 cm Phyllis Amy Other [employer] Other 05-25-2022 13:35-0400 Body mass index (BMI) [Ratio] 37.23 kg/m2 Phyllis Reyes Other [employer] Other 05-25-2022 13:35-0400 Body temperature 97.4 [degF] Phyllis Reyes Other [employer] Other 05-25-2022 13:35-0400 Body weight 131.54 kg Phyllis Reyes Other [employer] Other 05-25-2022 13:35-0400 Diastolic blood pressure 82 mm[Hg] Phyllis Reyes Other [employer] Other 05-25-2022 13:35-0400 Respiratory rate 18 /min Phyllis Reyes Other [employer] Other 05-25-2022 13:35-0400 SaO2% (BldA) [Mass fraction] 96 % hPyllis Reyes Other [employer] Other 05-25-2022 13:35-0400 Systolic blood pressure 142 mm[Hg] Phyllis Reyes Other [employer] Other 04-30-2022 11:00-0400 Body height Mary Adelaide Other [employer] Other 04-30-2022 11:00-0400 Body mass index (BMI) [Ratio] 37.23 kg/m2 Mary Bryson Other [employer] Other 04-30-2022 11:00-0400 Body weight 131.54 kg Mary Bryson Other [employer] Other Encounters Encounter Date Encounter Type Care Provider Facility Start: 04-27-2024 End: 04-27-2024 ambulatory [facility] Work Phone: Start: 04-27-2024 End: 04-27-2024 Patient encounter procedure [facility] Work Phone: Start: 04-20-2024 Non-patient / Non-visit [facility] Cardiology Work Phone: Start: 04-12-2024 End: 04-12-2024 ambulatory MD Jun Perez Work Phone: [facility] Work Phone: Start: 04-12-2024 End: 04-12-2024 Patient encounter procedure MD Jun Perez Work Phone: [facility] Work Phone: Start: 03-24-2024 End: 03-24-2024 ambulatory MD Jun Perez Work Phone: [facility] Work Phone: Start: 03-24-2024 End: 03-24-2024 Patient encounter procedure MD Jun Perez Work Phone: [facility] Work Phone: Start: 03-22-2024 End: 03-22-2024 ambulatory MD Jun Perez Work Phone: [facility] Work Phone: Start: 03-22-2024 End: 03-22-2024 Patient encounter procedure MD Jun Perez Work Phone: [facility] Cardiology Work Phone: Start: 03-07-2024 End: 03-07-2024 Patient encounter procedure MD Jun Perez Work Phone: [facility]Electrodiagnostics Work Phone: Start: 03-07-2024 End: 03-07-2024 ambulatory MD Jun Perez Work Phone: [facility] Work Phone: Start: 03-07-2024 Non-patient / Non-visit [facility] Work Phone: Start: 01-11-2024 End: 01-11-2024 ambulatory MD Jun Perez Work Phone: [facility] Work Phone: Start: 01-11-2024 End: 01-11-2024 Patient encounter procedure MD Jun Perez Work Phone: [facility] Card[facility] Work Phone: Start: 01-08-2024 Non-patient / Non-visit MD Xochitl Perez Work Phone: [facility] Work Phone: Start: 01-05-2024 End: 01-05-2024 ambulatory MD Jun Perez Work Phone: [facility] Work Phone: Start: 01-05-2024 End: 01-05-2024 Patient encounter procedure MD Jun Perez Work Phone: [facility] Nephrology Work Phone: Start: 01-04-2024 Non-patient / Non-visit MD Xochitl Perez Work Phone: [facility] Work Phone: Start: 12-31-2023 End: 12-31-2023 ambulatory MD Jun Perez Work Phone: [facility] Work Phone: Start: 12-31-2023 End: 12-31-2023 Patient encounter procedure MD Jun Perez Work Phone: [facility] Work Phone: Start: 12-22-2023 (DM) Diabetes Tondra Dione [facility] Start: 12-22-2023 End: 12-22-2023 ambulatory MD Jun Perez Work Phone: [employer] Other Start: 12-22-2023 End: 12-22-2023 Discharged Recurring MD [facility] Work Phone: Start: 12-22-2023 Registered Recurring MD [facility] Work Phone: Start: 12-14-2023 End: 12-14-2023 ambulatory Jose Yu Other [employer] Other Start: 12-14-2023 Office outpatient vi sit 25 minutes Jose Koromia [facility] Start: 12-14-2023 Telephone encounter Jose uY [facility] Start: 12-14-2023 End: 12-14-2023 Patient encounter procedure MD Jun Perez Work Phone: [facility]- Start: 11-20-2023 Patient encounter procedure MD Jun Perez Work Phone: [facility]- Start: 11-19-2023 End: 11-19-2023 ambulatory Jun Perez Other [employer] Other Start: 11-19-2023 Office outpatient vi sit 15 minutes Jun Perez [facility] Start: 11-19-2023 Telephone encounter Tj Solis [facility] Start: 11-18-2023 End: 11-18-2023 ambulatory Jose Yu Other [employer] Other Start: 11-18-2023 Office outpatient ne w 45 minutes Jose Koromia [facility] Start: 11-18-2023 End: 11-18-2023 Patient encounter procedure MD Jun Perez Work Phone: [facility] Work Phone: Start: 11-05-2023 End: 11-05-2023 Patient encounter procedure MD Jun Perez Work Phone: [facility] [place] Work Phone: Start: 11-05-2023 End: 11-05-2023 ambulatory MD Jun Perez Work Phone: [facility] Work Phone: Start: 11-04-2023 End: 11-04-2023 ambulatory Duncan Parham Other [facility] [employer] Other Start: 11-04-2023 Telephone encounter Duncan Parham [facility] Start: 10-31-2023 End: 10-31-2023 Patient encounter procedure MD Jun Perez Work Phone: [facility] Work Phone: Start: 10-26-2023 End: 10-26-2023 Patient encounter procedure MD Jun Perez Work Phone: [facility] [place] Work Phone: Start: 10-26-2023 End: 10-26-2023 ambulatory MD Jun Perez Work Phone: [facility] Work Phone: Start: 10-21-2023 End: 10-21-2023 Admission to same day surgery center MD Jun Perez Work Phone: [facility] Work Phone: Start: 10-21-2023 End: 10-21-2023 ambulatory MD Jun Perez Work Phone: [facility] Work Phone: Start: 10-15-2023 End: 10-15-2023 ambulatory [facility] Ambulatory Start: 10-15-2023 End: 10-15-2023 Office outpatient visit 25 minutes Britney Yu MD Work Phone: [facility] Comment on above: CHF (congestive hear t failure), NYHA class II, acute on chronic, combined (CMS/HCC); Primary hypertension; Nonischemic cardiomyopathy (CMS/HCC); Medication course changed; Hypertensive heart and CKD, 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); Mixed hyperlipidemia; Diabetes mellitus with kidney disease (CMS/HCC) Start: 09-28-2023 Telephone encounter Nancy MOSQUEDA Nephrology Start: 09-28-2023 End: 09-28-2023 ambulatory BRITNEY YU [facility] Other Start: 09-28-2023 End: 09-28-2023 Office outpatient visit 25 minutes Britney Yu MD Work Phone: [facility] Comment on above: Personality disorder (CMS/HCC) (Primary [...] Work Phone: Start: 09-17-2023 (DM) Diabetes [facility] Start: 09-17-2023 Telephone encounter Nancy MOSQUEDA Nephrology Start: 09-17-2023 End: 09-17-2023 Patient encounter procedure MD Jun Perez Work Phone: [facility]Ul[facility]ound [facility] [place] Work Phone: Start: 09-17-2023 End: 09-17-2023 ambulatory MD Jun Perez Work Phone: [place] Other Start: 09-17-2023 Registered Recurring MD Jun Perez Work Phone: [facility] Work Phone: Start: 09-15-2023 End: 09-15-2023 ambulatory Rodney Victor Other [employer] Other Start: 09-15-2023 Telephone encounter 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 Jun Perez Facility: Start: 05-06-2023 End: 05-07-2023 ambulatory Ritchie Eduardorenee AugusteGiselle Facility:[facility] Start: 05-01-2023 End: 05-01-2023 ambulatory Jun Perez Other [employer] Other Start: 05-01-2023 Telephone encounter Jun Perez [facility] Start: 04-27-2023 ambulatory Odilia Mackenzie Facility:[id number] Start: 04-17-2023 End: 04-17-2023 ambulatory Jun Perez Other [employer] Other Start: 04-17-2023 Office outpatient vi sit 25 minutes Jun Perez [facility] Start: 04-16-2023 End: 04-16-2023 ambulatory Tj Mayo Other [employer] Other Start: 04-16-2023 Office outpatient vi sit 25 minutes Tj Mayo [facility] Start: 04-10-2023 Office outpatient vi sit 25 minutes Jun Perez Work Phone: [facility] DO Work Phone: Start: 04-10-2023 Patient encounter procedure Jun Perez Work Phone: [facility] DO Work Phone: Start: 04-10-[address] Jun Perez Facility: Start: 04-10-2023 End: 04-11-2023 ambulatory TJ MAYO Facility:[facility]1 Start: 04-01-[address] Lashell Betancourt ty:[id number] Start: 03-31-2023 Encounter for preprocedural cardiovascular examination Dr. Lasehll Osborn [facility] Start: 03-31-[address] Lashell Betancourt ty:[id number] Start: 03-31-2023 Encounter for preprocedural cardiovascular examination Dr. Lashell [facility]born [facility] Start: 03-09-2023 End: 03-09-2023 ambulatory Tj Mayo Other [employer] Other Start: 03-09-2023 Telephone encounter Tj Mayo [facility] Start: 02-17-2023 End: 02-17-2023 ambulatory Jun Perez Other [employer] Other Start: 02-17-2023 Office outpatient vi sit 15 minutes Jun Perez [facility] Start: 02-06-2023 End: 02-06-2023 ambulatory Tj Mayo Other [employer] Other Start: 02-06-2023 Telephone encounter Tj Mayo [facility] Start: 02-04-2023 End: 02-04-2023 ambulatory Tj Mayo Other [employer] Other Start: 02-04-2023 Office outpatient ne w 45 minutes Tj Mayo [facility] Start: 02-04-2023 Telephone encounter Tj Mayo [facility] Start: 01-23-2023 Office outpatient vi sit 25 minutes Jun Perez Work Phone: [facility] DO Work Phone: Start: 01-23-[address] Jun Perez Facility: Start: 12-29-2022 End: 12-29-2022 ambulatory Jun Perez Other [employer] Other Start: 12-29-2022 Telephone encounter Jun Perez [facility] Start: 12-26-2022 Office outpatient ne w 45 minutes Jun Perez Work Phone: [facility] DO Work Phone: Start: 12-26-[address] Malika Patel Facility: Start: 12-02-2022 End: 12-02-2022 ambulatory Jun Perez Other [employer] Other Start: 12-02-2022 Telephone encounter Jun Perez [facility] Start: 12-01-2022 End: 12-01-2022 ambulatory Jun Perez Other [employer] Other Start: 12-01-2022 Office outpatient ne w 60 minutes Jun Perez [facility] Start: 11-25-2022 End: 11-25-2022 ambulatory Edie Morse Other [employer] Other Start: 11-25-2022 Telephone encounter Edie azar [facility] Start: 11-20-2022 End: 11-20-2022 ambulatory Edie Morse Other [employer] Other Start: 11-20-2022 Office outpatient ne w 30 minutes Edie Morse [facility] Start: 09-08-2022 End: 09-08-2022 ambulatory Phyllis Reyes Other [employer] Other Start: 09-08-2022 Office outpatient vi sit 15 minutes Phyllis Amy [facility] Start: 05-25-2022 End: 05-25-2022 ambulatory Phyllis Amy Other [employer] Other Start: 05-25-2022 Office outpatient vi sit 15 minutes Phyllis Amy [facility] Start: 04-30-2022 End: 04-30-2022 ambulatory Maryloren Bryosn Other [employer] Other Start: 04-30-2022 Office outpatient vi sit 25 minutes Mary Calvey [facility] Start: 03-13-2013 End: 03-14-2013 Emergency department patient visit NO REFERRING DR Facility:[facility] Patient encounter status Jun Perez Work Phone: [facility] DO Work Phone: Procedures Date Procedure [...] procedure 03/28/2024 10:45 AM EDT Office Visit [facility] [address] [facility] [address] [place] [address] Britney Yu MD [address] [facility] [address] [place] [address] [facility] Start: 10-29-2023 End: 10-15-2024 Basic metabolic 2000 panel - Serum or Plasma Basic Metabolic Panel Lab Routine CHF (congestive heart failure), NYHA class II, acute on chronic, combined (CMS/HCC) Nonischemic cardiomyopathy (CMS/HCC) Medication course changed Expected: 10/29/2023 (Approximate), Expires: 10/15/2024 [facility] Service Area Work Phone: Comment on above: [...] Expected: 10/22/2023 (Approximate), Expires: 10/15/2024 Start: 10-21-2023 [facility] Start: 10-15-2023 End: 10-15-2023 Patient encounter procedure 10/15/2023 10:45 AM EST Office Visit [facility] [address] [facility] [address] [place] [address] Britney Yu MD [address] [facility] [address] [place], [place] [id number] [facility] Start: 10-05-2023 End: 09-28-2024 Basic metabolic 2000 panel - Serum or Plasma Basic Metabolic Panel Lab Routine Hypertensive heart and CKD, 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) CHF (congestive heart failure), NYHA class II, acute on chronic, combined (CMS/HCC) Diabetes mellitus with kidney disease (CMS/HCC) Expected: 10/05/2023 (Approximate), Expires: 09/28/2024 [facility] Area Work Phone: Comment on above: Expected: 10/05/2023 (Approximate), Expires: 09/28/2024 Start: 09-28-2023 FUV, Provider: Britney Yu, Status: Pen, Time: 10:15 AM FUV, Provider: Britney Yu, Status: Pen, Time: 10:15 AM [facility] 250 DO Work Phone: Start: 07-22-2023 FUV, Provider: Odilia Olsen, Status: Pen, Time: 10:00 AM FUV, Provider: Odilia Olsen, Status: Pen, Time: 10:00 AM [facility] 250 DO Work Phone: Start: 07-17-2023 Influenza vaccination Influenza Vacc ine (#1) [facility] Start: 06-26-2023 FUV, Provider: Lashell Osborn, Status: Pen, Time: 10:30 AM FUV, Provider: Lashell Osborn, Status: Pen, Time: 10:[address] [facility] Work Phone: Start: 06-22-2023 FUV, Provider: Britney Yu, Status: Pen, Time: 11:00 AM FUV, Provider: Britney Yu, Status: Pen, Time: 11:00 AM [facility] DO Work Phone: Start: 06-08-2023 FUV, Provider: Britney Yu, Status: Pen, Time: 11:30 AM FUV, Provider: Britney Yu, Status: Pen, Time: 11:[address] [facility] Work Phone: Start: 05-14-2023 FUV, Provider: Britney Yu, Status: Pen, Time: 11:00 AM FUV, Provider: Britney Yu, Status: Pen, Time: 11:00 AM [facility] Work Phone: Start: 04-27-2023 MUGA, Provider: ANGEL LYLEI NUCLEAR 01,[id number], Status: Pen, Time: 2:30 PM MUGA, Provider: MILAGROS LIZ NUCLEAR 01,[id number], Status: Pen, Time: 2:30 PM [facility] DO Work Phone: Start: 02-24-2023 REST ONLY, Provider: MILAGROS LYLEI NUCLEAR 01,[id number], Status: Pen, Time: 12:30 PM REST ONLY, Provider: MILAGROS LIZ NUCLEAR 01,[id number], Status: Pen, Time: 12:30 PM [facility] 250 DO Work Phone: Start: 02-19-2023 STRESSNUC2, Provider : MILAGROS LIZ NUCLEAR 01,[id number], Status: Pen, Time: 12:30 PM STRESSNUC2, Provider: MILAGROS LIZ NUCLEAR 01,[id number], Status: Pen, Time: 12:30 PM [facility] DO Work Phone: Start: 02-21-2022 COVID-19 [...] Hepatitis C screening Hepatitis C Sc reening [facility] Start: 1960 Diabetic [...] Medical Center Start: 1950 [facility]ocardiography [facility] [place] [facility] Start: 1950 Hemoglobin A1c measurement Rosa betes: Hemoglobin A1C [facility] Start: 1950 Lipid panel Lipid Panel [facility] Start: 1950 Medicare Annual Well ness Visit Medicare Annual Wellness Visit (AWV) [facility] Start: 1950 Potassium measurement Potassium Jebe l [facility] Start: 1950 Screening for malign ant neoplasm of colon [facility] Patient Education [facility] Work Phone: Renal function 2000 panel - Serum or Plasma [facility] Payers Date Payer Category Payer Self-pay [id number] 2022 Medicare HUMANA MEDICARE HUMANA GOLD CHOICE [id number] 2022-Present [address] [address] [place] [address] [id number] 1959 Medicare [id number] 1950 Unknown [id number] 2.16.840.1.228476.3.579.2.593 1950 Unknown [id number] 2.16.840.1.113041.3.579.2.356 1950 Unknown [id number] 2.16.840.1.067281.3.579.2.356 1950 Unknown [id number] 2.16.840.1.990499.3.579.2.356 1950 Unknown [id number] 2.16.840.1.860378.3.579.2.356 1950 Unknown [id number] 2.16.840.1.771535.3.579.2.1068 1950 Unknown [id number] 2.16.840.1.898287.3.579.2.1068 1950 Unknown [id number] 2.16.840.1.825857.3.579.2.1068 1950 Unknown [id number] 2.16.840.1.577166.3.579.2.718 1950 Unknown [id number] 2.16.840.1.476657.3.579.2.718 1950 Unknown [id number] 2.16.840.1.342333.3.579.2.1244 1950 Unknown [id number] 2.16.840.1.987990.3.579.2.1244 Medicare [id number] 2.16.840.1.803674.19 Medicare [id number] 2.16. 840.1.703827.19 Medicare Medicare [id number] Unknown [id number] Unknown [id number] 2.16. 840.1.265963.19 Unknown HUMANA GOLD CHOICE Unknown [id number] 2.16.840.1.182277.3.579.2.531 Unknown [id number] 2.16.840.1.857829.3.579.2.531 Unknown [id number] 2.16.840.1.413121.3.579.2.531 Unknown [id number] 2.16.840.1.099232.3.579.2.531 Unknown [id number] 2.16840.1.075661.3.579.2.531 Unknown [id number] 2.16840.1.327440.3.579.2.531 Social History Date Type Detail Facility Start: 09-28-2023 End: 10-15-2023 Sex Assigned At [facility] Other Start: 09-28-2023 End: 10-15-2023 No alcohol use No alcohol use [place] [address] DO Work Phone: Start: 04-10-2021 End: 03-24-2024 Tobacco smoking status NHIS Never smoked tobacco (finding) [facility] Start: 1950 Sex Assigned At Male F [facility] Start: 09-25-2023 Tobacco use and exposure Smokeless tobacco non-user [facility] Work Phone: Start: 09-28-2023 End: 10-15-2023 Alcohol intake Lifetime non-drinker (finding) [facility] Work Phone: Start: 1950 [facility] Start: 09-18-2023 End: 10-15-2023 Exposure to SARS-CoV-2 (event) Not sure [facility] Medical Equipment Procedure Code Equipment Code Equipment Origin al Text Equipment Identifier Dates Blood Sugar Diagnostic (Accu-Chek Guide Test Strips) strip Start: 03-01-2024 Blood Sugar Diagnostic (Accu-Chek Guide Test Strips) strip Start: 03-01-2024 End: 03-01-2024 Blood Sugar Diagnostic (Accu-Chek Guide Test Strips) strip Start: 03-01-2024 Blood Sugar Diagnostic (Accu-Chek Guide Test Strips) strip Start: 03-01-2024 End: 03-01-2024 Blood Sugar Diagnostic (Accu-Chek Guide Test Strips) strip Start: 03-01-2024 Blood Sugar Diagnostic (Accu-Chek Guide Test Strips) strip Start: 03-01-2024 End: 03-01-2024 Blood Sugar Diagnostic (Accu-Chek Guide Test Strips) strip Start: 03-01-2024 Blood Sugar Diagnostic (Accu-Chek Guide Test Strips) strip Start: 03-01-2024 End: 03-01-2024 Blood Sugar Diagnostic (Accu-Chek Guide Test Strips) strip Start: 03-01-2024 Blood Sugar Diagnostic (Accu-Chek Guide Test Strips) strip Start: 03-01-2024 End: 03-01-2024 Goals Date Patient Goal Desired Activity /State [...] hyperglycemia, or diabetes medication issues. 6. Prescriptions: Openovate Labse 3 cgm sent. 7. 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 [facility] with [facility] in the past was negative for obstructive CAD. NYHA 2, ACC B.# HTN# DM - Diabetes is managed at the [facility] diabetes center. # CKD - BMP 11/05/23 sCr 1.66 BUN 43. 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 # Obesity - Has lost > 30 lbs in the last year which has helped his HTN and BP control.PCP: Dr. Zi Parham ([facility]), Dr. Gracia Perez (in [place]) Nuclear MPI in 2022 at [facility] - EF 31%. No ischemia or infarct.Echo in 2022 at [facility] - EF 25-30%MUGA done 04/27/23 at [facility] - EF 27%. EKG 03/27/21 - NSR 63 bpm, 1st degree AVB, iLBBB. EKG 11/18/23 in clinic - NSR 67 bpm, 1st degree AVB, IVCD, nonspecific T wave abnormalities. - BP elevated here today. But pt says his BP at home is 120/70s. See regimen changes below.- GDMT: Prior notes from Dr. Yu ([facility]) say he didn't tolerate Entresto due to [...] 1 month with BMP before that visit. [facility] Other 01-29-2024 Evaluation note* Encounter Date Diagnosis Assessment Notes Treatment Notes Treatment Clinical Notes Nov, Type 2 diabetes mellitus with other diabetic kidney complication, without long-term current use of insulin (ICD-10 - E11.29) Nov, Chronic congestive heart failure, unspecified heart failure type (ICD-10 - I50.9) Nov, CKD (chronic kidney disease) stage 2, GFR 60-89 ml/min (ICD-10 - N18.2) [facility] Other 01-04-2024 Evaluation note* Encounter Date Diagnosis [...] verbalized understanding and agreement with treatment plan. [facility] Other 01-03-2024 Evaluation note* Encounter Date Diagnosis [...] - NYHA 2, ACC B. Had a [facility] with [facility] in the past that was negative. 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 # Obesity - Has lost > 30 lbs in the last year which has helped his HTN and BP control.PCP: Dr. Zi Parham ([facility]), Dr. Gracia Perez (in [place]) Nuclear MPI in 2022 at [facility] - EF 31%.Echo in 2022 at [facility] - EF 25-30%MUGA done 04/27/23 at [facility] - EF 27%. EKG 03/27/21 - NSR 63 bpm, 1st degree AVB, iLBBB. EKG 11/18/23 in clinic - NSR 67 bpm, 1st degree AVB, IVCD, nonspecific T wave abnormalities. -I reviewed his last [address] Britney Yu at [facility].- GDMT: Says that he didn't tolerate [...] 1 month with BMP before that visit. [facility] Other 12-06[facility] History of Present illness Narrative* Britney [...] Noted Nonischemic cardiomyopathy (CMS/HCC) 10/15/2023 Obesity, morbid (CMS/[facility]) 09/28/2023 Abnormal EKG 09/25/2023 Cardiomyopathy (CMS/HCC) 09/25/2023 CHF (congestive heart failure), NYHA class II, acute on chronic, combined ([facility]/HCC) 09/25/2023 Diabetes mellitus with kidney disease ([facility]/HCC) 09/25/2023 First degree atrioventricular block 09/25/2023 Hyperlipidemia [...] [facility]: 1(623) 419-770311-30-2023 Instructions* Patient Instructions* Eric Corcoran MA - [...] [facility] Work Phone: 1(164) 527-365411-13-2023 History of Present illness Narrative* Britney Yu [...] Diagnosis Date Noted Abnormal EKG 09/25/2023 Cardiomyopathy ([facility]) 09/25/2023 CHF (congestive heart failure), NYHA class II, acute on chronic, combined ([facility]) 09/25/2023 Diabetes mellitus with kidney disease ([facility]) 09/25/2023 First degree atrioventricular block 09/25/2023 Hyperlipidemia 09/25/2023 Hypertensive heart and CKD, ESRD on dialysis ([facility]) 09/25/2023 Medication course changed 09/25/2023 Obstructive sleep apnea, adult 09/25/2023 Personal history of COVID-19 09/25/2023 Pre-operative cardiovascular examination 09/25/2023 Primary hypertension 09/25/2023 Type 2 diabetes mellitus without complication ([facility]) 09/25/2023 Assessment: Patient does not appear euvolemic Patient has chronic systolic left heart failure functional class II Patient has diabetes without hypoglycemia with kidney disease Test results were reviewed. Recommendations: 1. Continue Entresto if affordable otherwise go back to hydralazine 2. Follow-up as scheduled Follow up : 6 months Britney Yu MD [facility] Work Phone: 1(209) 476-830711-13-2023 Instructions* Patient Instructions* Davis Riggs MA - [...] [facility] Work Phone: 1(212) 394-281611-02-2023 Evaluation note* Encounter Date Diagnosis Assessment Notes Treatment Notes Treatment Clinical Notes Sep, Dietary counseling and surveillance (ICD-10 - Z71.3) see above Sep, Type 2 diabetes mellitus with diabetic chronic kidney disease (ICD-10 - E11.22) 1. Controlled, a Type 2 diabetes with A1c of 6.7% 09/07/23 2. Blood glucose levels according to [employer] 3 cgm download 09/04/23-09/17/23: Avg glucose 148. [...] or diabetes medication issues. 6. Prescriptions: Drug [place] in Preo/carmelita 3 cgm sent 09/17/23. Sample carmelita 3 [...] spent on education with Aleah DAVIS, RN. [facility] Other 06-02-2023 Evaluation note* Encounter Date Diagnosis Assessment Notes Treatment Notes Treatment Clinical Notes Apr, Type 2 diabetes mellitus with hyperglycemia, without long-term current use of insulin (ICD-10 - E11.65) [facility] Discussed switching from glipizide to ozempic. He prefers to wait at this time. Apr, Chronic congestive heart failure, unspecified heart failure type (ICD-10 - I50.9) Advised he complete the MUGA and adequately discuss symptoms with his [employer]. He discussed that he does not have chest pain, dyspnea or significant edema. He has researched his EF and echo results. He does not feel that his symptoms are significant enough to proceed w pacer or defibrillator. Followup w Cardiology. Apr, Chronic kidney disease, stage III (moderate) (ICD-10 - N18.30) Reviewed notes and advised he follow Dr. Solis's recommendations. [facility] Other 06-01-2023 Evaluation note* Encounter Date Diagnosis [...] check iron studies B12 and folate level. [facility] Other 04-04-2023 Evaluation note* Encounter Date Diagnosis Assessment Notes Treatment Notes Treatment Clinical Notes Feb, Bronchitis (ICD-10 - J40) Bronchitis suspected due to wheezes, chest tightness, cough and/or impaired air movement. Medication prescribed. Avoid extreme heat and cold as this may exacerbate inflammation of airways. If wheezing, chest tightness and/or SOB occurs, go to ER. [facility] Other 03-22-2023 Evaluation note* Encounter Date Diagnosis [...] do a work-up to rule it out. [facility] Other 02-13-2023 Evaluation note* Encounter Date Diagnosis Assessment Notes Treatment Notes Treatment Clinical Notes Dec, Type 2 diabetes mellitus with other diabetic kidney complication, without long-term current use of insulin (ICD-10 - E11.29) Dec, Neuropathy of left lower extremity (ICD-10 - G57.92) [facility] Other 01-16-2023 Evaluation note* Encounter Date Diagnosis [...] Nov, Precancerous skin lesion (ICD-10 - L98.9) [facility] Other 01-05-2023 Evaluation note* Encounter Date Diagnosis [...] understanding and is agreeable to treatment plan. [facility] Other 10-24-2022 Evaluation note* Encounter Date Diagnosis [...] the ER for worsening symptoms or concerns. [facility] Other 07-10-2022 Evaluation note* Encounter Date Diagnosis Assessment Notes Treatment Notes Treatment Clinical Notes May, Hordeolum externum of right lower eyelid (ICD-10 - H00.012) Hordeolum home care material was printed Use the eye ointment as prescribed. Apply warm compresses to your eye 2-3 times a day. Follow-up with your eye doctor if no improvement in 3 to 4 days. [facility] Other 06-15-2022 Evaluation note* Encounter Date Diagnosis [...] pain of right knee (ICD-10 - M25.561) [facility] Other 09-01-2020 History of Present illness Narrative* [...] Patient is no longer receiving care from [place] [facility]: Transferred care to [facility] with new patient assessment by Dr. Osborn [...] January, there has been further prolongation of DE interval and mild elongation of QRS duration. [...] 6. Will be a great candidate for [employer], will discuss at next visit [facility] DO Work Phone: 1([phone]) 535-773609-01-2020 History of Present illness Narrative* Patient was [...] Patient is no longer receiving care from [place] [facility]: Transferred care to [facility] with new patient assessment by Dr. Osborn [...] January, there has been further prolongation of DE interval and mild elongation of QRS duration. [...] 6. Will be a great candidate for [employer], will discuss at next visit [facility] DO Work Phone: 1([phone]) 915-987103-10-2013 History of Present illness Narrative* 72 yo [...] on his current medications. No complaints today. [facility] [employer] DO Work Phone: 1(201) 145-250402-10-2013 History of Present illness [id number] yo male here to establish care. Has a reported hx of CHF 10 years ago but states his EF has since recovered. He endorses weekly exercise (5x per week) with no issues. State's he very active. No chest pain, palpitations, presyncope/syncope, LE edema, PND, orthopnea. Checks his BP daily and statesits well-controlled on his current medications. No complaints today.[facility] [employer] DO Work Phone: chief complaint Narrative - ReportedADRIEL GIRALDO is being seen for a consultation for CHF- former [place] [facility]ology.[facility] [employer] DO Work Phone: chief complaint+Reason for visit Narrative* Chief Complaint I42.8 I50.9 I10 3 months meter referral for sleep clinic Reason for Visit Chronic HFrEF (heart failure with reduced ejection fraction) Chronic kidney disease, stage III (moderate) HTN (hypertension) Non-ischemic cardiomyopathy Type 2 diabetes mellitus with diabetic chronic kidney disease BMI 36.0-36.9,adult Dietary counseling and surveillance HTN (hypertension) Hyperlipidemia Type 2 diabetes mellitus with diabetic chronic kidney disease [facility] Work Phone: chief complaint+Reason for visit Narrative* Chief Complaint I42.8 I50.9 I10 3 months meter referral for sleep clinic CC Heart Failure Follow Up Vertigo Reason for Visit Chronic HFrEF (heart failure with reduced ejection fraction) Chronic kidney disease, stage III (moderate) HTN (hypertension) Non-ischemic cardiomyopathy Type 2 diabetes mellitus with diabetic chronic kidney disease BMI 36.0-36.9,adult Dietary counseling and surveillance HTN (hypertension) Hyperlipidemia Type 2 diabetes mellitus with diabetic chronic kidney disease Chronic kidney disease, stage III (moderate) Irritable bowel syndrome with predominant constipation Lumbar back pain EVY (obstructive sleep apnea) [facility] Work Phone: Evaluation noteNo InformationN[employer] Other Evaluation noteNo assessment information available [facility] Work Phone: Evaluation note* Diagnosis Personality disorder ([facility]/HCC)- Primary Unspecified personality disorder Obesity, morbid ([facility]) Morbid obesity Hypertensive heart and CKD, ESRD on dialysis ([facility]) CHF (congestive heart failure), NYHA class II, acute on chronic, combined ([facility]) Diabetes mellitus with kidney disease ([facility]) Mixed hyperlipidemia Primary hypertension Unspecified essential hypertension Medication course changed documented in this encounter [facility] Work Phone: Evaluation note* Diagnosis CHF (congestive heart failure), NYHA class II, acute on chronic, combined ([facility]) Primary hypertension Unspecified essential hypertension Nonischemic cardiomyopathy ([facility]) Other primary cardiomyopathies Medication course changed Hypertensive heart and CKD, ESRD on dialysis ([facility]) Mixed hyperlipidemia Diabetes mellitus with kidney disease ([facility]/HCC) documented in this encounter [facility] Work Phone: Evaluation note* Diagnosis Onset Date Resolution Status Rhinitis, allergic acute Tim hy kid w cr kid I-IV acu te Chronic kidney disease, stage III (moderate) acute Complex renal cyst acute Nephrolithiasis acute Proteinuria acute Thrombocytopenia acute Type 2 diabetes mellitus wit h diabetic chronic kidney disease acute [facility] Work Phone: Evaluation note* Diagnosis Onset Date Resolution Status Rhinitis, allergic acute Tim hy kid w cr kid I-IV acu te Chronic kidney disease, stage III (moderate) acute Complex renal cyst acute Nephrolithiasis acute Proteinuria acute Thrombocytopenia acute Type 2 diabetes mellitus wit h diabetic chronic kidney disease acute Chronic HFrEF (heart failure with reduced ejection fraction) acute Chronic kidney disease, stage III (moderate) acute HTN (hypertension) acute Non-ischemic cardiomyopathy acute Type 2 diabetes mellitus wit h diabetic chronic kidney disease acute [facility] Work Phone: Evaluation note* Diagnosis Onset Date Resolution Status Rhinitis, allergic acute Tim hy kid w cr kid I-IV acu te Chronic kidney disease, stage III (moderate) acute Complex renal cyst acute Nephrolithiasis acute Proteinuria acute Thrombocytopenia acute Type 2 diabetes mellitus wit h diabetic chronic kidney disease acute Chronic HFrEF (heart failure with reduced ejection fraction) acute Chronic kidney disease, stage III (moderate) acute HTN (hypertension) acute Non-ischemic cardiomyopathy acute Type 2 diabetes mellitus wit h diabetic chronic kidney disease acute Chronic HFrEF (heart failure with reduced ejection fraction) acute Chronic kidney disease, stage III (moderate) acute HTN (hypertension) acute Non-ischemic cardiomyopathy acute Type 2 diabetes mellitus wit h diabetic chronic kidney disease acute [facility] Work Phone: Evaluation note* Diagnosis Onset Date Resolution Status Rhinitis, allergic acute Tim hy kid w cr kid I-IV acu te Chronic kidney disease, stage III (moderate) acute Complex renal cyst acute Nephrolithiasis acute Proteinuria acute Thrombocytopenia acute Type 2 diabetes mellitus wit h diabetic chronic kidney disease acute Chronic HFrEF (heart failure with reduced ejection fraction) acute Chronic kidney disease, stage III (moderate) acute HTN (hypertension) acute Non-ischemic cardiomyopathy acute Type 2 diabetes mellitus wit h diabetic chronic kidney disease acute Chronic HFrEF (heart failure with reduced ejection fraction) acute Chronic kidney disease, stage III (moderate) acute HTN (hypertension) acute Non-ischemic cardiomyopathy acute Type 2 diabetes mellitus wit h diabetic chronic kidney disease acute Dietary counseling and surveillance acute HTN (hypertension) acute Hyperlipidemia acute Type 2 diabetes mellitus wit h diabetic chronic kidney disease acute [facility] Work Phone: Evaluation note* Diagnosis Onset Date Resolution Status Chronic HFrEF (heart failure with reduced ejection fraction) acute Chronic kidney disease, stage III (moderate) acute HTN (hypertension) acute Non-ischemic cardiomyopathy acute Type 2 diabetes mellitus wit h diabetic chronic kidney disease acute BMI 36.0-36.9,adult acute Dietary counseling and surveillance acute HTN (hypertension) acute Hyperlipidemia acute Type 2 diabetes mellitus wit h diabetic chronic kidney disease acute [facility] Work Phone: Evaluation note* Diagnosis Onset Date Resolution Status Chronic HFrEF (heart failure with reduced ejection fraction) acute Chronic kidney disease, stage III (moderate) acute HTN (hypertension) acute Non-ischemic cardiomyopathy acute Type 2 diabetes mellitus wit h diabetic chronic kidney disease acute BMI 36.0-36.9,adult acute Dietary counseling and surveillance acute HTN (hypertension) acute Hyperlipidemia acute Type 2 diabetes mellitus wit h diabetic chronic kidney disease acute Chronic kidney disease, stage III (moderate) acute Irritable bowel syndrome with predominant constipation acute Lumbar back pain acute EVY (obstructive sleep apnea) acute [facility] Work Phone: History and physical note Author Rodney Victor [facility] October 21, 2023 11:23am Note Date/Time October 21, 2023 1 1:23am [facility] [address] [place] [address] Gastroenterology H&P Signed Patient: Td Giraldo MR#: [id number] : 1950 Acct:[id number] Age/Sex: 72 / M Adm Date: 3 Loc: Room: Type: [facility] Attending Dr: Rodney Victor MD Copies to: [...] the procedure. Rodney Victor MD Documented By: oRdney Victor MD 10/21/231121 Signed By: <Electronically signed by Rodney Victor MD> 10/21/23 1123 [facility] Work Phone: history general Narrative - Reported* Type Description Date Medical History chronic renal failure Medical History hyperkalemia Medical History diabetes mellitus Medical History coronary artery disease Medical History sleep apnea Medical History hypertension Medical History obstructive uropathy Medical History CHF Medical History only has one kidney Medical History hypertension Surgical History left wrist ganglion cyst excisi on, volar [facility] Other Hishbyd general Narrative - Reported* Type Description Date Medical History chronic renal failure Medical History hyperkalemia Medical History diabetes mellitus Medical History coronary artery disease Medical History sleep apnea Medical History hypertension Medical History obstructive uropathy Medical History CHF Medical History only has one kidney Medical History hypertension Surgical History left wrist ganglion cyst excisi on, volar Surgical History b/l cataracts [facility] Other Hisiisz general Narrative - Reported* Type Description Date Medical History chronic renal failure Medical History hyperkalemia Medical History diabetes mellitus Medical History Congestive heart failure Medical History sleep apnea Medical History hypertension Medical History obstructive uropathy Medical History only has one kidney Surgical History left wrist ganglion cyst excisi on, volar Surgical History b/l cataracts [facility] Other Hisdkqf general Narrative - Reported* Type Description Date [...] 06/2015 Hospitalization History ABNORMAL LABS/ DIALYSIS 07/2015 [facility] Other history general Narrative - Reported* Type [...] 06/2015 Hospitalization History ABNORMAL LABS/ DIALYSIS 07/2015 [facility] Other Hiszzmo general Narrative - Reported* Type Description Date [...] 06/2015 Hospitalization History ABNORMAL LABS/ DIALYSIS 07/2015 [facility] Other Hispxrp general Narrative - Reported* Type Description Date [...] 06/2015 Hospitalization History ABNORMAL LABS/ DIALYSIS 07/2015 [facility] Other History of Present illness Narrative* The [...] medication regimen. He denies medication side effects. [facility] DO Work Phone: History of Present illness Narrative* [...] medication regimen. He denies medication side effects. [facility] DO Work Phone: History of Present illness Narrative* [...] medication regimen. He denies medication side effects. [facility] Work Phone: Hospital Discharge instructions Additional [...] problems. -Follow up with PCP. -Office number [phone].[facility] Work Phone: Reason for referral (narrative)* Consultation (Routine) - Authorized Specialty Diagnoses / Procedures Referred By Contac t Referred To Contact Cardiology Diagnoses CHF (congestive heart failure), NYHA class II, acute on chronic, combined (CMS/HCC) Primary hypertension Procedures Follow Up In Cardiology Britney Yu MD [address] [place] [place] [id number] Britney Yu MD [address] [place] [place] [id number] Referral ID Status Reason Start Date Expiration Date V isits Requested Visits Authorized [id number] Authorized 09/28/2023 09/27/2024 1 1 [facility] Work Phone: Retoen for referral (narrative)* Consultation (Routine) - Authorized Specialty Diagnoses / Procedures Referred By Contac t Referred To Contact Cardiology Diagnoses CHF (congestive heart failure), NYHA class II, acute on chronic, combined (CMS/HCC) Primary hypertension Nonischemic cardiomyopathy (CMS/HCC) Procedures Follow Up In Cardiology Britney Yu MD [address] [facility] [address] [place] [address] Britney Yu MD [address] [facility] [address] [place] [address] Referral ID Status Reason Start Date Expiration Date V isits Requested Visits Authorized [id number] Authorized 10/15/2023 10/14/2024 1 1 [facility] Work Phone: Reason for visit Narrativenutrition referral [facility] [employer] Other Summary Purpose Family History Unknown Family [...] ice. Previously saw provider at [facility] ortho Diagnosis 1 Recurrent pain of ri ght knee (M25.561) Referral Organization [facility] Referring Provider First Name Jun Referring Provider Last Name Kun Referring Provider Specialty Family [facility] Referred Organization [facility] Referred Provider KilleenRitchie Referred Address ,[place], [place],[address] Referred Provider Specialty Orthopedic S urgery Referral Priority Routine Referral Appointment Date 2022-12-16 General Notes Becca Boykin 11:40:22 AM >received today, notes locked, attachments made, referral faxed P2P Becca Boykin 12/12/2022 09:25:38 AM >faxed first attempt letter Becca Boykin 12/12/2022 01:42:44 PM >received fax back that pt is scheduled with [facility] Becca Gordillo 12/17/2022 08:00:55 AM >faxed first request for consult notes Becca Boykin 2022 12:58:52 PM >faxed second request for notes Becca Boykin 12/26/2022 05:01:54 PM >received notes, sent for review. Reason 12/26/22 [place] office. pt has data on previous echos, etc Diagnosis 1 Left heart failure w ith left ejection fraction greater than 40 percent (I50.1) Referral Organization [facility] [employer] Referring Provider First Name Jun Referring Provider Last Name Kun Referring Provider Specialty [facility] [place] [employer] Referred Organization [facility] enter Referred Provider Lashell Osborn Referred Address [address],[place], [place],[address] Referred Provider Specialty Internal Med icine Referral Priority Routine Referral Appointment Date 2022-12-26 General Notes Becca Boykin 01:12:21 PM >pt was originally referred by Edie Morse and has an appt with [facility] on 12/26/22 Becca Boykin 12/29/2022 05:08:53 PM >faxed first request for consult notes Bceca Boykin 12/30/2022 01:56:43 PM >received notes, sent for review. Closing referral at this time. Reason 02/04/23 Pt has re cent labs. copies will also be scanned in Diagnosis 1 CKD (chronic kidney disease) stage 2, GFR 60-89 ml/min (N18.2) Referral Organization [facility] [employer] Referring Provider First Name Jun Referring Provider Last Name Kun Referring Provider Specialty [facility] [place] [employer] Referred Organization [facility] Nephrology Referred Provider Tj Solis Referred Address [address] ,[place],[address] Referred Provider Specialty Nephrology Referral Priority Routine [...] peripheral neuropathy (E11.42) Referral Organization [facility] [employer] Referring Provider First Name Jun Referring Provider Last Name Kun Referring Provider Specialty [facility] [place] [employer] Referred Organization [facility] Referred Provider JAGDEEP GIBSON Referred Address ,[place], [place],[address] Referred Provider Specialty Podiatry - S urgical Chiropody Referral Priority Routine Referral Appointment Date 2022-12-11 General Notes Becca Boykin 11:23:27 AM >received today, faxed referral Becca Boykin 12/05/2022 01:14:47 PM >patient provided appt date Becca Boykin 12/12/2022 01:27:01 PM >faxed first request for consult notes Becca Boykin 12/15/2022 12:08:55 PM >received notes and sent for review. closing referral at this time. Clinical Notes [id number] Reason 12/10/22 yearly sk in exam Diagnosis 1 Precancerous skin le edith (L98.9) [facility] Referring Provider First Name Jun Referring Provider Last Name Kun Referring Provider Specialty Family Medi cine Referred Organization [facility] Kaelyn christine Referred Provider Tigre Russell Referred Address [address] [facility],[place],[address] Referred Provider Specialty Dermatology Referral Priority Routine Referral Appointment Date 2022-12-10 General Notes Becca Boykin 10:49:22 AM >received today, notes locked, attachments made, referral faxed Becca Boykin 12/15/2022 11:00:10 AM >faxed first attempt letter Becca Boykin 12/15/2022 02:09:31 PM >received notes and sent for review Reason CLOSED evaluate Diagnosis 1 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) Referral Organization [facility] [place] Referring Provider First Name Edie Referring Provider Last Name Lito Referring Provider Specialty Nurse Pract itionevincent Referred Organization [facility] Nephrology Cli manpreet Vargas Referred Provider Tj Solis Referred Address [address],[place],[address] Referred Provider Specialty Nephrology Referral Priority Routine General Notes Becca Boykin 11:14:39 AM >received today Becca Boykin 11/20/2022 11:15:11 AM >waiting for notes to be locked, and availity website is currently down to complete PA. will check back Becca Boykin 11/21/2022 09:08:45 AM >availity website is still down. will check back Becac Boykin 11/24/2022 09:17:04 AM >[employer] site still down [place] Becca 11/25/2022 08:54:58 AM >site up, and no [...] unspecified heart failure type (I50.9) Referral Organization [facility] [place] Referring Provider First Name Edie Referring Provider Last Name Lito Referring Provider Specialty Nurse Pract itioner Referred Organization [facility] enter Referred Provider Hawa Diallo Referred Address [address] ,[place], [place],[address] Referred Provider Specialty Cardiac Surg niurka Referral Priority Routine Referral Appointment Date 2022-12-26 General Notes Becca Boykin 11:08:29 AM >received today, waiting for notes to be locked, and [employer] website is down for Prior Auth. will check back Becca Boykin 11/21/2022 09:08:07 AM >[employer] website is still down at this time. [...] knee ( M25.561) Referral Organization [facility] [place] Referring Provider First Name Edie Referring Provider Last Name Luciaachevincent Referring Provider Specialty Nurse Pract itioner Referred Organization [facility] Referred Provider Tad Boucher Referred Address [address] [place],[address] Referred Provider Specialty Orthopedic S urgery Referral Priority Routine General Notes Becca Boykin 11:16:24 AM >received today, waiting for notes to be locked, and [employer] website is currently down at the moment. will folllow up Becca Boykin 11/21/2022 09:09:03 AM >[employer] website is still currently down. will check back Becca Boykin 11/24/2022 09:17:20 AM >[employer] site is still down Becca Boykin 11/25/2022 [...] dilated LVEF 31%. * I reviewed prior [place] cardiology note dated August 25, 2022. * [...] Patient is no longer receiving care from [place] clinic: Transferred care to [facility] with new patient assessment by Dr. Osborn [...] reports that usually calibrated yearly by the [place] clinic,will no longer be seen in the [place] clinic and referred to the sleep clinic [...] dilated LVEF 31%. * I reviewed prior [place] cardiology note dated August 25, 2022. * [...] Patient is no longer receiving care from [place]: Transferred care to [facility] with new patient assessment by Dr. Osborn [...] reports that usually calibrated yearly by the [place] clinic,will no longer be seen in the [place] and referred to the sleep clinic [...] diabetes mellitus with diabetic chronic kidney disease Chief Complaint iron defiency anemia I50.43 Feels Cold, Achy, Weak, Sinus- Thinks He I50.43 I42.8 Z79.899 Wants To Establish As A New Patient 1 Month Follow Up DM cough congestion renal 4 month f/u 1 month follow up Reason for Visit Rhinitis, allergic Tim hy kid w cr kid I-IV Chronic kidney disease, stage III (moderate) Complex renal cyst Nephrolithiasis Proteinuria Thrombocytopenia Type 2 diabetes mellitus with diabetic chronic kidney disease Chief Complaint 1 Month Follow Up DM cough congestion renal 4 month f/u 1 month follow up I42.8 I50.9 I10 Reason for Visit Rhinitis, allergic Tim hy kid w cr kid I-IV Chronic kidney disease, stage III (moderate) Complex renal cyst Nephrolithiasis Proteinuria Thrombocytopenia Type 2 diabetes mellitus with diabetic chronic kidney disease Chronic HFrEF (heart failure with reduced ejection fraction) Chronic kidney disease, stage III (moderate) HTN (hypertension) Non-ischemic cardiomyopathy Type 2 diabetes mellitus with diabetic chronic kidney disease Chief Complaint cough congestion renal 4 month f/u 1 month follow up I42.8 I50.9 I10 3 months Reason for Visit Rhinitis, allergic Tim hy kid w cr kid I-IV Chronic kidney disease, stage III (moderate) Complex renal cyst Nephrolithiasis Proteinuria Thrombocytopenia Type 2 diabetes mellitus with diabetic chronic kidney disease Chronic HFrEF (heart failure with reduced ejection fraction) Chronic kidney disease, stage III (moderate) HTN (hypertension) Non-ischemic cardiomyopathy Type 2 diabetes mellitus with diabetic chronic kidney disease Chronic HFrEF (heart failure with reduced ejection fraction) Chronic kidney disease, stage III (moderate) HTN (hypertension) Non-ischemic cardiomyopathy Type 2 diabetes mellitus with diabetic chronic kidney disease Chief Complaint cough congestion renal 4 month f/u 1 month follow up I42.8 I50.9 I10 3 months meter Reason for Visit Rhinitis, allergic Tim hy kid w cr kid I-IV Chronic kidney disease, stage III (moderate) Complex renal cyst Nephrolithiasis Proteinuria Thrombocytopenia Type 2 diabetes mellitus with diabetic chronic kidney disease Chronic HFrEF (heart failure with reduced ejection fraction) Chronic kidney disease, stage III (moderate) HTN (hypertension) Non-ischemic cardiomyopathy Type 2 diabetes mellitus with diabetic chronic kidney disease Chronic HFrEF (heart failure with reduced ejection fraction) Chronic kidney disease, stage III (moderate) HTN (hypertension) Non-ischemic cardiomyopathy Type 2 diabetes mellitus with diabetic chronic kidney disease Dietary counseling and surveillance HTN (hypertension) Hyperlipidemia Type 2 diabetes mellitus with diabetic chronic kidney disease Additional Source Comments INFORMATION SOURCE (unrecogn ized section and content) DATE CREATED AUTHOR 05/12/2018 [facility] DATE CREATED AUTHOR AUTHOR'S ORGANIZ ATION 11/16/2020 [facility] DATE CREATED AUTHOR AUTHOR'S ORGANIZ ATION 01/08/2023 [facility] dical Specialist DATE CREATED AUTHOR AUTHOR'S ORGANIZ ATION 04/26/2023 [facility] DATE CREATED AUTHOR AUTHOR'S ORGANIZ ATION 05/15/2023 [facility] DATE CREATED AUTHOR AUTHOR'S ORGANIZ ATION 05/15/2023 [employer] DATE CREATED AUTHOR AUTHOR'S ORGANIZ ATION 05/23/2023 [facility] DATE CREATED AUTHOR AUTHOR'S ORGANIZ ATION 08/21/2023 [facility] DATE CREATED AUTHOR AUTHOR'S ORGANIZ ATION 03/15/2024 [facility] DATE CREATED AUTHOR AUTHOR'S ORGANIZ ATION 04/21/2024 [facility] (unrecognized sect ion and content) No Status Records FoundNo Status Records FoundNo Status Records FoundNo Status Records FoundNo Status Records FoundNo Status Records FoundNo Status Records FoundNo Status Records FoundNo Status Records Found REASON FOR VISIT (unrecogniz ed section and content) Reason Comments Follow-up 4 month Reason Comments Follow-up 2w Specialty Diagnoses / Procedures Referred By Adan t Referred To Contact Cardiology Diagnoses CHF (congestive heart failure), NYHA class II, acute on chronic, combined (CMS/HCC) Primary hypertension Procedures Follow Up In Cardiology Britney Yu MD [address] [facility] [address] [place] [address] Britney Yu MD [address] [facility] [address] [place] [address] Referral ID Status Reason Start Date Expiration Date V isits Requested Visits Authorized [id number] Authorized 09/28/2023 09/27/2024 1 1 Care Teams [...] Active Tj Solis MD Attending Provider Active Process Controller Relationship Specialty Start Date End Date Jun Perez MD [address] [place] [address] PCP - General 12/26/22 Process Controller Relationship Specialty Start Date End Date Jun [...] 2023 Team Status: Inactive Member Role Status Tomasa Perez MD Primary Care Provide r, Attending Provider Active Start: December 31, 2023 End: December 31, 2023 Team Status: Active Member Role Status Dates Jun Perez MD Primary Care Provide r, Attending Provider Active Start: January 04, 2024 Team Status: Inactive Member Role Status Tomasa Perez MD Primary Care Provider Active Start: January 05, 2024 End: January 05, 2024 Tj Solis MD Attending Provider Active Start : January 05, 2024 End: January 05, 2024 Team Status: Inactive Member Role Status Tomasa Perez MD Primary Care Provider Active Start: December 22, 2023 End: December 22, 2023 Duncan Parham [employer] Attending Provider Active Start: December 22, 2023 End: December 22, 2023 Team Status: Active Member Role Status Dates Jun Perez MD Primary Care Provider Active Start: January 08, 2024 Duncan Parham APRN Attending Provider Active Start: January 08, 2024 Team Status: Inactive Member Role Status Dates Jun Perez MD Primary Care Provider Active Start: January 11, 2024 End: January 11, 2024 Jose Yu MD Attending Provider Activ e Start: January 11, 2024 End: January 11, 2024 Team Status: Inactive Member Role Status Tomasa Perez MD Primary Care Provider Active Start: March 07, 2024 End: March 07, 2024 Jose Yu MD Attending Provider Activ e Start: March 07, 2024 End: March 07, 2024 Team Status: Inactive Member Role Status Tomasa Perez MD Primary Care Provider Active Start: March 22, 2024 End: March 22, 2024 Jose Yu MD Attending Provider Activ e Start: March 22, 2024 End: March 22, 2024 Team Status: Inactive Member Role Status Tomasa Perez MD Primary Care Provider Active Start: March 24, 2024 End: March 24, 2024 Duncan Parham APRN Attending Provider Active Start: March 24, 2024 End: March 24, 2024 Team Status: Active Member Role Status Dates Jose Yu MD [employer] Helper Active Jun Perez MD Primary Care Provider Active Team Status: Inactive Member Role Status Tomasa Perez MD Primary Care Provide r, Attending Provider Active Start: April 12, 2024 End: April 12, 2024 Team Status: Active Member Role Status Tomasa Perez MD Primary Care Provider Active Start: March 07, 2024 Jose Yu MD Attending Provider, Other Provider Active Start: March 07, 2024 Team Status: Active Member Role Status Tomasa Perez MD Primary Care Provide r, Attending Provider Active Start: April 20, 2024 Team Status: Inactive Member Role Status Tomasa Perez MD Primary Care Provide r, Attending Provider Active Start: April 27, 2024 End: April 27, 2024 Goals (unrecognized section and content) Goals [...] BE BASED ON THE PRIMARY CLINICAL RECORDS. [employer] [facility]. provides no warranty or guarantee of the accuracy or completeness of information in this document.
== END 2024-04-30 20:01 | disposition home or self-care (01) ==
PROVIDERS: PCP Family Medicine; Visit Provider Family Medicine
DX: G47.33 Obstructive sleep apnea (adult) (pediatric) (principal)
CPT/HCPCS: 95810

== ENCOUNTER 2024-06-07 19:29 | Outpatient (OUT) | payer MEDICARE, SELFPAY ==
--- OUTSIDE RECORDS SUMMARY | 2024-06-07 19:50 | XMS_ITS | CCD ---
Author Organization [facility] Care Team Providers Care Black Studies Professor Name Role Phone NO REFERRING DR Unavailable Unavailable [employer] Unavailable Unavailable DISCH, JNO Unavailable Unavailable Phyllis Reyes Unavailable Mary Bryson Unavailable Jun Perez Unavailable Unavailable Unavailable Edie Morse Unavailable Jun Perez Unavailable MayojT Unavailable MAYOTJ Attending Unavailable MAOY, TJ Consulting Unavailable MAYOARAUL Admitting Unavailable Jorge, Dr. Malika Calle Primary Care Robb Osborn, Dr. Jerez Attending Unavailable Anurag, Dr. Jerez Referring Unavailable Kun, Dr. Jun Patel Primary Care Unaruthy ailronaldo Osborn, Dr. Jerez Attending Unavailable Anurag, [...] Kun, Dr. Jun Patel Primary Care Unav Ritchie Vance Admitting Unavail able CAROLEE GONZALEZ Primary Care Unavailable Ritchie Desai Attending Unavail able CAROLEE GONZALEZ Primary Care Unavailable Ritchie Desai Attending Unavail able Ritchie Desai Admitting Unavail able Rodney Victor Unavailable Dione Tondra Unavailable MD Jnu Perez Primary Care Provider Mapus, INSPECTOR GOLF BALL Tondra K Attending Provider MD Tj Solis Attending Provider [phone] Jun Perez MD Primary Care Provider Jun Perez MD Primary Care Provider Unavailable MD Jun Perez Primary Care Provider Map, INSPECTOR GOLF BALL Ton K Attending Provider MD Tj Solis Attending Provider MD Rodney Victor Attending Provider MD Britney Yu Attending Provider Jose Yu Unavailable MD Jun Perez Primary Care Provider Map, INSPECTOR GOLF BALL Tona K Attending Provider MD Jun Perez Primary Care Provider Map, INSPECTOR GOL[employer] BALL Tona K Attending Provider MD Jose Yu [...] Perez Primary Care Unavailable Jose Yu Admitting Jose Courtney Attending Jun Douglas Primary Care Unavailable Jun Perez Primary Care Unavailable Duncan Parham Admitting Unavailable Duncan Parham Attending Unavailable Jun Perez Primary Care Unavailable Rodney Victor Admitting Unavailable Rodney Victor Attending Unavailable Allergies Allergy Classification Reported Allergen(s) Allergy Type Date of Onset Reaction(s) Facility (20 sources) Contrast media Propensity to adverse reactions Unknown [facility] Other (8 sources) Contrast media Allergy to substance (finding) Shortness of breath [facility] [employer] 250 DO Work Phone: (6 sources) Angiotensin Converting Enzyme (Elisa) Inhibitors; Translations: [ELISA Inhibitors] Allergy to drug (finding) [facility] [employer] 250 DO Work Phone: (1 source) Contrast media; Translations: [Contrast Dye] Propensity to adverse reactions to drug (disorder) [facility] (14 sources) Gadolinium-Cont aining Contrast Medi; Translations: [Gadolinium-Con taining Contrast Medi] Allergy to substance 1 Anaphylaxis [facility] (17 sources) Iodinated Contrast Media; Translations: [IODINATED CONTRAST MEDIA] Allergy to substance 1 Shortness of breath [facility] Medications Current Medications Medication Drug Class(es) [...] Start: 06-08-2023 take 1 tablet by tanvi twice daily Carvedilol 6.25 MG Oral Tablet [...] days Active take 1 capsule by mo [facility] three times daily gabapentin (Neurontin) 100 mg [...] day Active take 1 tablet by tanvi every eight hours hydrALAZINE HCl 10 mg [...] preparation (3 sources) Multivitamin Act fabien Saw Sorrento 1000 MG (18 sources) take 1000 mg by mouth twice daily Saw Sorrento 1000 MG as directed Orally BID Active Saw Sorrento 450 MG (6 sources) take 450 mg by mouth three times daily Saw Sorrento 450 MG as directed Orally three times a day Active Saw Sorrento (12 sources) Start: 10-21-2023 take 450 mg by mouth three times daily at mealtime Saw Sorrento Active 450 MG PO Three times daily October 21, 2023 1:00am give with food (meal/snack) Start: 10-21-2023 take 450 mg by mouth three times daily at mealtime Saw Sorrento Active 450 MG PO Three times daily [...] th once daily Vitamin D3 50 MCG (1999 [...] Start: 09-08-2022 take 1 tablet by tanvi every twelve hours predniSONE 20 MG 1 [...] Hypertensive heart and CKD, ESRD on dialysis ([facility]) , CHF (congestive heart failure), NYHA class II, acute on chronic, combined ([facility]) , Primary hypertension Take 1 tablet by [...] tablet Orally Twice a day Not-Taking/PRN Saw Sorrento 1000 MG Oral Capsule (8 sources) Saw Sorrento 100 0 MG Oral Capsule TAKE DIRECTED. [...] (current) use of other medications] Onset: 3 11-13-2023 Episodic Other aftercare (11 sources) Long-term current use of insulin; Translations: [penitentiary (current) use of insulin] Episodic Other bone [...] 05-25-2022 Episodic Other aftercare (2 sources) Other retirement (current) drug therapy; Translations: [Other retirement (current) drug therapy] Onset: 09-25-2023 Episodic Other [...] 03-24-2024 HbA1c (Bld) [Mass fraction] 6.6 % [facility] No Panel Informationon 03-24 Bedside Glucose 110 [facility] ECH echo transthoracicon ECH echo transthoracic [facility] Main [place] [id number] Echocardiogram Signed Patient: Td Giraldo MR#: [id number] : 1950 Acct:[id number] Age/Sex: 73 / M ADM Date: 03/07/24 Loc: Room: Type: [facility] Attending Dr: Jose Yu MD Ordering Provider: Jose Yu MD Date of Service: 03/07/24 ECH/[facility] echo transthoracic: I42.8 - Other cardiomyopathies Copies [...] By: Jose Yu MD 03/07/242036 Normal [facility] Estimated glomerular filtrat ion rate (GFR) non- Americanon 01-08-2024 GFR/1.73 sq M.predicted among non-blacks MDRD (S/P/Bld) [Vol rate/Area] 41 mL/min/{1.73_m2} >=60 [facility] Laboratory - Chemistry and C hemistry - challengeon 01-08-2024 Calcium [Mass/Vol] 8.7 mg/dL 8.5-10.1 [facility] Chloride [Moles/Vol] 105 mmol/L 98-107 [facility] CO2 [Moles/Vol] 29.2 mmol/L 21.0-32.0 [facility] Creatinine [Mass/Vol] 1.67 mg/dL 0.70-1.30 [facility] GFR/1.73 sq M.predicted MDRD (S/P/Bld) [Vol rate/Area] 49 mL/min/{1.73_m2} >=60 [facility] Glucose [Mass/Vol] 161 mg/dL 74-106 [facility] Potassium [Moles/Vol] 5.0 mmol/L 3.5-5.1 [facility] Sodium [Moles/Vol] 141 mmol/L 136-145 [facility] Urea nitrogen [Mass/Vol] 32.0 mg/dL 7.0-18.0 [facility] Urea nitrogen/Creatinine [Mass ratio] 19.2 mg/mg [facility] Serum or plasma anion gap de terminationon 01-08-2024 Anion gap [Moles/Vol] 11.8 mmol/L Fi [facility] Automated epithelial cells c ount in urine sediment (number/area)on 01-04-2024 Epithelial cells Auto (Urine sed) [#/Area] RARE #/LPF NONE/RARE [facility] Automated leukocytes count i n urine sediment (number/area)on 01-04-2024 WBC Auto (Urine sed) [#/Area] NONE SEEN #/HPF 0-2 [facility] Automated urine specific gra vity by refractometryon 01-04-2024 Specific gravity Refractometry automated (U) [Rel density] 1.025 1.005-1.025 [facility] Bilirubin Auto test strip (U ) [Mass/Vol]on 01-04-2024 Bilirubin (U) [Mass/Vol] Negative NEGATIVE [facility] Color Auto (U)on 01-04-2024 Color (U) LT. YELLOW YELLOW [facility] Erythrocyte distribution wid th Auto (RBC) [Ratio]on 01-04-2024 Erythrocyte distribution width (RBC) [Ratio] 15.2 % 11.0-15.0 [facility] Estimated glomerular filtrat ion rate (GFR) non- Americanon 01-04-2024 GFR/1.73 sq M.predicted among non-blacks MDRD (S/P/Bld) [Vol rate/Area] 47 mL/min/{1.73_m2} >=60 [facility] Hematocrit Auto (Bld) [Volum e fraction]on 01-04-2024 Hematocrit (Bld) [Volume fraction] 46.3 % 42.0-54.0 [facility] Hemoglobin [Mass/volume] in Bloodon 01-04-2024 Hemoglobin (Bld) [Mass/Vol] 14.1 g/dL 14.0-18.0 [facility] Iron binding capacity [Mass/ volume] in Serum or Plasmaon 01-04-2024 Iron binding capacity [Mass/Vol] 291.0 ug/dL 250.0-450.0 [facility] Iron saturation [Mass Fracti on] in Serum or Plasmaon 01-04-2024 Iron saturation [Mass fraction] 27.8 % [facility] Ketones Auto test strip (U) [Mass/Vol]on 01-04-2024 Ketones (U) [Mass/Vol] Negative NEGATIVE [facility] - Chemistry and C hemistry - challengeon 01-04-2024 Albumin [Mass/Vol] 3.5 g/dL 3.4-5.0 [facility] Calcium [Mass/Vol] 8.7 mg/dL 8.5-10.1 [facility] Chloride [Moles/Vol] 106 mmol/L 98-107 [facility] CO2 [Moles/Vol] 26.1 mmol/L 21.0-32.0 [facility] Creatinine [Mass/Vol] 1.46 mg/dL 0.70-1.30 [facility] Ferritin [Mass/Vol] 88.0 ng/mL 26.0-388.0 [facility] GFR/1.73 sq M.predicted MDRD (S/P/Bld) [Vol rate/Area] 57 mL/min/{1.73_m2} >=60 [facility] Glucose [Mass/Vol] 118 mg/dL 74-106 [facility] Iron [Mass/Vol] 81.0 ug/dL 65.0-175.0 [facility] Magnesium [Mass/Vol] 2.3 mg/dL 1.8-2.4 [facility] Potassium [Moles/Vol] 4.7 mmol/L 3.5-5.1 [facility] Sodium [Moles/Vol] 140 mmol/L 136-145 [facility] Urate [Mass/Vol] 6.4 mg/dL 3.5-7.2 [facility] Urea nitrogen [Mass/Vol] 31.0 mg/dL 7.0-18.0 [facility] Urea nitrogen/Creatinine [Mass ratio] 21.2 mg/mg [facility] Leukocytes [#/volume] correc ritu for nucleated erythrocytes in Blood by Automated counon 01-04-2024 WBC corrected for nucl RBC Auto (Bld) [#/Vol] 5.4 10 3/uL 4.0-11.0 [facility] MCH Auto (RBC) [Entitic mass ]on 01-04-2024 MCH (RBC) [Entitic mass] 26.5 pg 25.9-34.0 [facility] MCHC Auto (RBC) [Mass/Vol]on 01-04-2024 MCHC (RBC) [Mass/Vol] 30.5 g/dL 29.9-35.2 [facility] MCV Auto (RBC) [Entitic vol] on 01-04-2024 MCV (RBC) [Entitic vol] 87.0 fL 80.0-94.0 [facility] Mucus LM Ql (Urine sed)on Mucus Ql (Urine sed) NONE SEEN NONE SEEN [facility] No Panel Informationon 01-04 Parathyroid Hormone (Intact) 21 pg/mL 15-65 [facility] Comment on above: Performed at: [address] [id number] Director: Robin Mead PhD, Phone: [phone] Phosphorus Level 4.1 mg/dL 2.6-4.7 [facility] Platelet mean volume Auto (B ld) [Entitic vol]on 01-04-2024 Platelet mean volume (Bld) [Entitic vol] 12.0 fL 9.5-13.5 [facility] Platelets Auto (Bld) [#/Vol] on 01-04-2024 Platelets (Bld) [#/Vol] 106 10 3/uL 150-450 [facility] Protein Auto test strip (U) [Mass/Vol]on 01-04-2024 Protein (U) [Mass/Vol] 30 mg/dL NEG/TRACE [facility] RBC Auto (Bld) [#/Vol]on RBC (Bld) [#/Vol] 5.32 10 6/uL 4.70-6.10 [facility] Serum or plasma anion gap de terminationon 01-04-2024 Anion gap [Moles/Vol] 12.6 mmol/L Fi [facility] Specific gravity Auto test s trip (U) [Rel density]on 01-04-2024 Specific gravity (U) [Rel density] CLEAR CLEAR [facility] Urine bacteria detection by automated methodon 01-04-2024 Bacteria Auto Ql (U) NONE SEEN #/HPF NONE SEEN [facility] Urine glucose measurement by test strip (mass/volume)on 01-04-2024 Glucose Test strip (U) [Mass/Vol] >=1000 mg/dL NEGATIVE [facility] Urine hemoglobin detection b y automated test stripon 01-04-2024 Hemoglobin Auto test strip Ql (U) Negative NEGATIVE [facility] Urine nitrite detection by a utomated test stripon 01-04-2024 Nitrite Auto test strip Ql (U) Negative NEGATIVE [facility] Urine sediment leukocyte cou nt by microscopy (number/high power field)on 01-04-2024 WBC LM.HPF (Urine sed) [#/Area] NONE SEEN #/HPF NONE SEEN [facility] Urobilinogen Auto test strip (U) [Mass/Vol]on 01-04-2024 Urobilinogen Qn (U) 0.2 {Dolores'U}/dL 0.2-1.0 [facility] pH Auto test strip (U)on pH (U) 5.5 [pH] 5.0-9.0 [facility] A1C HEMOGLOBINon 12-22-2023 HbA1c (Bld) [Mass fraction] 7.7 % [facility] Other Glucose - FINGER STICKon Glucose [Mass/Vol] 137 mg/dL [facility] Other HbA1c (Bld) [Mass fraction]o n 12-22-2023 A1C HEMOGLOBIN [employer] Other Basic Metabolic Panelon 12-2 GFR/1.73 sq M.predicted MDRD (S/P/Bld) [Vol rate/Area] 43.529 mL/min/{1.73_m2} Normal [facility] Comment on above: Performed By: #### B MP #### [address] Calcium [Mass/volume] in Ser um or PlasmaOrdered By: Britney Yu on 11-05-2023 Calcium [Mass/Vol] 9.1 mg/dL Normal 8.6-10.3 [facility] Comment on above: Result Comment: PERF ORMED BY: [place] [address] PATHOLOGIST HOSE STRIPPER TRAN RANDOLPH M.D. Performed By: #### B MP #### [address] Carbon dioxide, total [Moles /volume] in Serum or PlasmaOrdered By: Britney Yu on 11-05-2023 CO2 [Moles/Vol] 22.5 mmol/L Normal 21.0-31.0 [facility] Comment on above: Performed By: #### B MP #### [address] Chloride [Moles/volume] in S niya or PlasmaOrdered By: Britney Yu on 11-05-2023 Chloride [Moles/Vol] 104 mmol/L Normal 98-107 [facility] Comment on above: Performed By: #### B MP #### [place] [address] [place] Creatinine [Mass/volume] in Serum or PlasmaOrdered By: Britney Yu on 11-05-2023 Creatinine [Mass/Vol] 1.66 mg/dL High 0.70-1.30 [facility] Comment on above: Performed By: #### B MP #### [address] Glucose [Mass/volume] in Ser um or PlasmaOrdered By: Britney Yu on 11-05-2023 Glucose [Mass/Vol] 354 mg/dL High 70-100 [facility] Comment on above: ADA recommended refe rence rangeRandom Glucose Reference Range is dependent on time and content of last meal. Glucose of more than 200 mg/dL in a nonstressed, ambulatory subject supports the diagnosis of Diabetes Mellitus. Result Comment: [place] om Glucose Reference Range is dependent on time and content of last meal. Glucose of more than 200 mg/dL in a nonstressed, ambulatory subject supports the diagnosis of Diabetes Mellitus. ADA recommended reference range Performed By: #### B MP #### [address] No Panel InformationOrdered By: Britney Yu on 11-05-2023 Estimated GFR (CKD-EPI) 43.529 mL/Min [facility] Creatinine Clearance (Chem N/A [facility] Potassium [Moles/volume] in Serum or PlasmaOrdered By: Britney Yu on 11-05-2023 Potassium [Moles/Vol] 4.5 mmol/L Normal 3.5-5.1 [facility] Comment on above: Performed By: #### B MP #### [address] Serum or plasma anion gap de terminationOrdered By: Britney Yu on 11-05-2023 Anion gap [Moles/Vol] 14.0 mmol/L Normal 6.0-15.0 [facility] Comment on above: Performed By: #### B MP #### [facility] [address] [place] [address] Sodium [Moles/volume] in Ser um or PlasmaOrdered By: Britney Yu on 11-05-2023 Sodium [Moles/Vol] 136 mmol/L Normal 136-145 [facility] Comment on above: Performed By: #### B MP #### [address] Urea nitrogen [Mass/volume] in Serum or PlasmaOrdered By: Britney Yu on 11-05-2023 Urea nitrogen [Mass/Vol] 43 mg/dL High 7-25 [facility] Comment on above: Performed By: #### B MP #### [address] Basic Metabolic Panelon 10-16 GFR/1.73 sq M.predicted MDRD (S/P/Bld) [Vol rate/Area] 45.838 mL/min/{1.73_m2} Normal [facility] Comment on above: Performed By: #### B MP #### [place] [address] [place] Calcium [Mass/volume] in Ser um or PlasmaOrdered By: Britney Yu on 10-26-2023 Calcium [Mass/Vol] 9.5 mg/dL Normal 8.6-10.3 [facility] Comment on above: Result Comment: PERF ORMED BY: [place] [address] PATHOLOGIST HOSE STRIPPER TRAN RANDOLPH M.D. Performed By: #### B MP #### [address] Carbon dioxide, total [Moles /volume] in Serum or PlasmaOrdered By: Britney Yu on 10-26-2023 CO2 [Moles/Vol] 25.0 mmol/L Normal 21.0-31.0 [facility] Comment on above: Performed By: #### B MP #### [place] [address] [place] Chloride [Moles/volume] in S niya or PlasmaOrdered By: Britney Yu on 10-26-2023 Chloride [Moles/Vol] 109 mmol/L High 98-107 [facility] Comment on above: Performed By: #### B MP #### [place] [address] [place] Creatinine [Mass/volume] in Serum or PlasmaOrdered By: Britney Yu on 10-26-2023 Creatinine [Mass/Vol] 1.59 mg/dL High 0.70-1.30 [facility] Comment on above: Performed By: #### B MP #### [address] Glucose [Mass/volume] in Ser um or PlasmaOrdered By: Britney Yu on 10-26-2023 Glucose [Mass/Vol] 206 mg/dL High 70-100 [facility] Comment on above: ADA recommended refe rence rangeRandom Glucose Reference Range is dependent on time and content of last meal. Glucose of more than 200 mg/dL in a nonstressed, ambulatory subject supports the diagnosis of Diabetes Mellitus. Result Comment: [place] om Glucose Reference Range is dependent on time and content of last meal. Glucose of more than 200 mg/dL in a nonstressed, ambulatory subject supports the diagnosis of Diabetes Mellitus. ADA recommended reference range Performed By: #### B MP #### [address] No Panel InformationOrdered By: Britney Yu on 10-26-2023 Estimated GFR (CKD-EPI) 45.838 mL/Min [facility] Creatinine Clearance (Chem N/A [facility] Potassium [Moles/volume] in Serum or PlasmaOrdered By: Britney Yu on 10-26-2023 Potassium [Moles/Vol] 5.1 mmol/L Normal 3.5-5.1 [facility] Comment on above: Performed By: #### B MP #### [address] Serum or plasma anion gap de terminationOrdered By: Britney Yu on 10-26-2023 Anion gap [Moles/Vol] 13.1 mmol/L Normal 6.0-15.0 [facility] Comment on above: Performed By: #### B MP #### [address] Sodium [Moles/volume] in Ser um or PlasmaOrdered By: Britney Yu on 10-26-2023 Sodium [Moles/Vol] 142 mmol/L Normal 136-145 [facility] Comment on above: Performed By: #### B MP #### [facility] [address] Urea nitrogen [Mass/volume] in Serum or PlasmaOrdered By: Britney Yu on 10-26-2023 Urea nitrogen [Mass/Vol] 28 mg/dL High 7-25 [facility] Comment on above: Performed By: #### B MP #### [facility] [address] Capillary blood glucose katie urement by glucometer (mass/volume)Ordered By: Rodney Victor on 10-21-2023 Glucose [Mass/Vol] 155 mg/dL Normal [facility] Comment on above: Random Glucose Refer ence Range is dependent on time and content of last meal. Glucose of more than 200 mg/dL in a nonstressed, ambulatory subject supports the diagnosis of Diabetes Mellitus. Result Comment: [place] om Glucose Reference Range is dependent on time and content of last meal. Glucose of more than 200 mg/dL in a nonstressed, ambulatory subject supports the diagnosis of Diabetes Mellitus. PERFORMED BY: [facility] [address] [facility] [address] PATHOLOGIST HOSE STRIPPER TRAN RANDOLPH M.D. Performed By: #### G ESTRELLITA #### Point of Care testing , Gerhard 10-21-2023 L Specimen: [id number] Received: 10/21/23 Status: DONTAE Rashaun Num: [id number] Spec Type: Surgical Subm Dr: Rodney Victor MD Tissues: A Colon Biopsy (CECAL POLYP) B Colon Biopsy (TRANSV POLYP) Procedures: HE/4, Gross/Micro L4/2 Age/ Patient Sex Location Account Attending Physician Td Giraldo /[facility] [id number] Rodney Victor MD SPEC NUM: [id number] RECD: 10/21/23 STATUS: DONTAE RANGEL NUM: [id number] EBONI: 10/21/23- [facility] DR: Rodney Victor MD ENTERED: 10/21/[address] [facility] DR: [place] TYPE: Surgical DEPT: S ORDERED: [...] submitted in one cassette labeled B1. Specimen: [id number] Received: 10/21/23 Status: DONTAE Rangel Num: [id number] Spec Type: Surgical Subm Dr: Rodney Victor MD Tissues: A Colon Biopsy (CECAL POLYP) B Colon Biopsy (TRANSV POLYP) Procedures: /4, Gross/Micro L4/2 Patient: Td Giraldo [id number] (Continued) Specimen: [id number] Received: 10/21/23 (Continued) Signed (signature on file) Beto Torres MD 10/23/23 1144 Specimen: [id number] Received: 10/21/23 Status: DONTAE Rangel Num: [id number] Spec Type: Surgical Subm Dr: Rodney Victor MD Tissues: A Colon Biopsy (CECAL POLYP) B Colon Biopsy (TRANSV POLYP) Procedures: HE/4, Gross/Micro L4/2 Patient: Td Giraldo [id number] (Continued) Specimen: [id number] Received: 10/21/23 (Continued) Microscopic Description A. Two H E slides reviewed. The microscopic examination confirms the diagnosis. B. Two H E slides reviewed. The microscopic examination confirms the diagnosis. CPT Codes 95914t0 Specimen: [id number] Received: 10/21/23 Status: DONTAE Rangel Num: [id number] Spec Type: Surgical Subm Dr: Rodney Victor MD Tissues: A Colon Biopsy (CECAL POLYP) B Colon Biopsy (TRANSV POLYP) Procedures: HE/Erick, Gross/Micro L4/2 Patient: Td Giraldo [id number] (Continued) Signed (signature on file) Beto Torres MD 10/23/23 1144 Normal [facility] Glucose - FINGER STICKon Glucose [Mass/Vol] 215 mg/dL [facility] Other US renal BIon 09-17-2023 US renal BI [facility] [place] [address] Ultrasound Report Signed Patient: dT Giraldo MR#: [id number] : 1950 Acct:[id number] Age/Sex: 72 / M ADM Date: 09/17/23 Loc: Room: Type: [facility] Attending Dr: Tj Solis MD Ordering [...] findings. Impression dictated by: Tobias Hahn Jr., D.OJudie09/17/2023 3:32 PM Dictation Location: [facility] Tech: Edie Spike Transcribed By: MOE 09/17/23 1532 Dictated By: Tobias Hahn Jr, DO 09/17/23 1532 Signed By: 09/17/23 1532 Normal [facility] Tobacco Screening.on 023 Fall risk assessment a) No falls within the last year [facility] Heart-[employer] 250 DO Work Phone: Tobacco use status [facility] b) No M [facility] [employer] 250 DO Work Phone: Office Visit (Cardiology)on [...] 14May2023 Unlinked Stop: Aspirin EC 81 MG [facility] Patient Instructions Please bring all medicines, vitamins, [...] Patient is no longer receiving care from [place]: Transferred care to [facility] with new patient assessment by Dr. Osborn [...] January, there has been further prolongation of NM interval and mild elongation of QRS duration. [...] a diabe (more content not included)... Normal Hologic Tobacco Screening.on 023 Tobacco use status [facility] b) No M [facility] 250 DO Work Phone: [facility] MUGA SCAN INJECTIONon [facility]GA SCAN INJECTION Patient Name: ADRIEL GIRALDO STUDY: MUGA Performing facility: [facility], [address], [address], [place] [address] [facility] Provider: Odilia Mackenzie RN, DBA PCP: Dr. Sam Perez Supervising provider: Jemima Gastelum MD INDICATION: Cardiomyopathy HISTORY: Gender: M; Age: 72 y/o ; Height: 0 cm; Weight: 131.726116 kg. High Cholesterol; HTN; Denies smoking. COMPARISON: Previous nuclear testing completed [id number] MPI EF=31% at [facility]. Previous echo testing completed [id number] EF= 25-30% at [facility]. ACCESSION NUMBER(S): [id number]; [id number] ORDERING CLINICIAN: ODILIA MACKENZIE TECHNIQUE: The patient [...] Electronically signed by: JEMIMA GASTELUM MD Normal [facility] No Panel Informationon 04-27 [facility] Work Phone: IMMUNOFIXATION (EMILY), URINEo n 04-15-2023 EMILY Interpretation:U Comment Normal [facility] Comment on above: Result Comment: No m onoclonality detected. Performed By: #### I MUNFXU #### [facility] [address] [address] [address] Santos Mchugh PROTEIN ELECTROPHERESIS URIN E RANDOMon 04-15-2023 Albumin, U 66.6 % Normal [facility] Comment on above: Performed By: #### U PTE #### [facility] [address] [address] [address] Santos Mchugh Alpha-1 Globulin U 4.9 % Normal [facility] Comment on above: Performed By: #### U PTE #### [facility] [address] [address] [address] Santos Mchugh Alpha-2 Glubulin U 7.5 % Normal [facility] Comment on above: Performed By: #### U PTE #### [facility] [address] [address] [address] Santos Mchugh Beta Globulin, U 12.9 % Normal [facility] Comment on above: Performed By: #### U PTE #### [facility] [address] [address] [address] Santos Mchugh Gamma Globulin U 8.1 % Normal [facility] Comment on above: Performed By: #### U PTE #### [facility] [address] [place] [address] Dr. Santos Mchugh M-Tavo, % Not Observed Normal Not Observed [facility] Comment on above: Performed By: #### U PTE #### [facility] [address] [place] [address] Dr. Santos Mchugh PDF . Normal [facility] Comment on above: Performed By: #### U PTE #### [facility] [address] [address] [address] Santos Mchugh Please note: Comment Normal [facility] Comment on above: Result Comment: Prot ein electrophoresis scan will follow via computer, mail, or manual winder delivery. Performed By: #### U PTE #### [facility] [address] [place] [address] Dr. Santos Mchugh Protein (U) [Mass/Vol] 64.1 mg/dL Normal Not Estab. [facility] Comment on above: Performed By: #### U PTE #### [facility] [address] [place] [address] Dr. Santos Mchugh FREE LIGHT CHAINS PLUS RATIO on 04-14-2023 Free [place] Lt Chains,S 49.2 mg/L Critically high 3.3-19.4 [facility] Comment on above: Performed By: #### F REELIT #### [facility] [address] [address] [address] Santos Mchugh Free Lambda Lt Chains,S 19.3 mg/L Normal 5.7-26.3 [facility] Comment on above: Performed By: #### F REELIT #### [facility] [address] [address] [address] Santos Mchugh [place]/Lambda Ratio, S 2.55 Critically high 0.26-1.65 [facility] Comment on above: Performed By: #### F REELIT #### [facility] [address] [place] [address] Dr. Santos Mchugh IMMUNOFIXATION (EMILY), SERUMo n 04-14-2023 IMMUNOFIXATION RESULT Comment Normal [facility] Comment on above: Result Comment: No m onoclonality detected. Performed By: #### U AMIC #### [facility] [address] [place] [address] Dr. Santos Mchugh Immunoglobulin A, Qn, Serum 186 mg/dL Normal 61-437 [facility] Comment on above: Performed By: #### U AMIC #### [facility] [address] [place] [address] Dr. Santos Mchugh Immunoglobulin G, Qn, Serum 854 mg/dL Normal 603-1613 [facility] Comment on above: Performed By: #### U AMIC #### [facility] [address] [place] [address] Dr. Santos Mchugh Immunoglobulin M, Qn, Serum 62 mg/dL Normal 15-143 [facility] Comment on above: Performed By: #### U AMIC #### [facility] [address] [place] [address] Dr. Santos Mchugh PROTEIN ELECTROPHERESISon Albumin [Mass/Vol] 3.5 g/dL Normal 2.9-4.4 [facility] Comment on above: Performed By: #### P RTELEC #### [facility] [address] [place] [address] Dr. Santos Mchugh Albumin/Globulin [Mass ratio] 1.1 {ratio} Normal 0.7-1.7 [facility] Comment on above: Performed By: #### P RTELEC #### [facility] [address] [place] [address] Dr. Santos Mchugh Xzhmx-2-Ldhhudnb 0.2 g/dL Normal 0.0-0.4 [facility] Comment on above: Performed By: #### P RTELEC #### [facility] [address] [place] [address] Dr. Santos Mchugh Pantx-1-Mygajrun 0.9 g/dL Normal 0.4-1.0 [facility] Comment on above: Performed By: #### P RTELEC #### [facility] [address] [place] [address] Dr. Santos Mchugh Beta Globulin 1.2 g/dL Normal 0.7-1.3 [facility] Comment on above: Performed By: #### P RTELEC #### [facility] [address] [place] [address] Dr. Santos Mchugh Gamma Globulin 0.8 g/dL Normal 0.4-1.8 [facility] Comment on above: Performed By: #### P RTELEC #### [facility] [address] [place] [address] Dr. Santos Mchugh Globulin (S) [Mass/Vol] 3.1 g/dL Normal 2.2-3.9 [facility] Comment on above: Performed By: #### P RTELEC #### [facility] [address] [place] [address] Dr. Santos Mchugh M-Tavo Comment: Normal Not Observed [facility] Comment on above: Result Comment: SPE shows asymmetrical beta. Performed By: #### P RTELEC #### [facility] [address] [place] [address] Dr. Santos Mchugh PDF . Normal [facility] Comment on above: Performed By: #### P RTELEC #### [facility] [address] [place] [address] Dr. Santos Mchugh Please note: Comment Normal [facility] Comment on above: Result Comment: Prot ein electrophoresis scan will follow via computer, mail, or manual winder delivery. Performed By: #### P RTELEC #### [facility] [address] [place] [address] Dr. Santos Mchugh Protein [Mass/Vol] 6.6 g/dL Normal 6.0-8.5 [facility] Comment on above: Performed By: #### P RTELEC #### [facility] [address] [place] [address] Dr. Santos Mchugh PTH INTACTon 04-11-2023 PTH, Intact 52 pg/mL Normal 15-65 [facility] Comment on above: Performed By: #### P THINT #### [facility] [address] [place] [address] Dr. Santos Mchugh HEMOGRAM AND PLATELon 2022 Hematocrit (Bld) [Volume fraction] 41.9 % Critically low 42.0-54.0 [facility] Comment on above: Performed By: #### U AMIC #### [facility] [address] [place] [address] Dr. Santos Mchugh Hemoglobin (Bld) [Mass/Vol] 13.3 g/dL Critically low 14.0-18.0 [facility] Comment on above: Performed By: #### U AMIC #### [facility] [address] [place] [address] Dr. Santos Mchugh MCH (RBC) [Entitic mass] 26.3 pg Normal 25.9-34.0 [facility] Comment on above: Performed By: #### U AMIC #### [facility] [address] [place] [address] Dr. Santos Mchugh MCHC (RBC) [Mass/Vol] 31.7 g/dL Normal 29.9-35.2 [facility] Comment on above: Performed By: #### U AMIC #### [facility] [address] [place] [address] Dr. Santos Mchugh MCV (RBC) [Entitic vol] 82.8 fL Normal 80.0-94.0 [facility] Comment on above: Performed By: #### U AMIC #### [facility] [address] [place], [place] [address] Dr. Santos Mchugh PLT 167 103/ul Normal 150-450 [facility] Comment on above: Performed By: #### U AMIC #### [facility] [address] [place], [place] [address] Dr. Santos Mchugh RBC 5.06 106/ul Normal 4.70-6.10 [facility] Comment on above: Performed By: #### U AMIC #### [facility] [id number] Santos Mchugh WBC 5.2 103/ul Normal 4.0-11.0 [facility] Comment on above: Performed By: #### U AMIC #### [facility] [address] [address] [address] Santos Mchugh Office Visit (Cardiology)on 04-10-2023 [...] with dilated LVEF 31%. I reviewed prior [facility] note dated August 25, 2022. Patient [...] Patient is no longer receiving care from [facility]: Transferred care to [facility] with new patient assessment by Dr. Osborn [...] reports that usually calibrated yearly by the [facility], will no longer be seen in [...] side eff (more content not included)... Normal [facility]ologic RENAL FUNCTION PANELon 04-10 Albumin [Mass/Vol] 3.6 g/dL Normal 3.4-5.0 [facility] Comment on above: Performed By: #### U KAJAL, RENAL #### [facility] [address] [address] [address] Santos Mchugh Calcium [Mass/Vol] 8.9 mg/dL Normal 8.5-10.1 [facility] Comment on above: Performed By: #### U KAJAL, RENAL #### [facility] [address] [address] [address] Santos Mchugh Chloride [Moles/Vol] 103 mmol/L Normal 98-107 [facility] Comment on above: Performed By: #### U KAJAL, RENAL #### [facility] [address] [address] [address] Santos Mchugh CO2 [Moles/Vol] 28.4 mmol/L Normal 21.0-32.0 [facility] Comment on above: Performed By: #### U KAJAL, RENAL #### [facility] [address] [address] [address] Santos Mchugh Creatinine [Mass/Vol] 1.48 mg/dL Critically high 0.70-1.30 [facility] Comment on above: Performed By: #### U KAJAL, RENAL #### [facility] [address] [address] [address] Santos Mchugh EGFR-AF CONGOLESE 57 mL/min/1.73m2 Critically low >=60 [facility] Comment on above: Performed By: #### U KAJAL, RENAL #### [facility] [address] [address] [address] Santos Mchugh EGFR-NON AF CONGOLESE 47 mL/min/1.73m2 Critically low >=60 [facility] Comment on above: Performed By: #### U KAJAL, RENAL #### [facility] [address] [address] [address] Santos Mchugh Glucose [Mass/Vol] 122 mg/dL Critically high 74-106 [facility] Comment on above: Performed By: #### U KAJAL, RENAL #### [facility] [address] [address] [address] Santos Mchugh Phosphate [Mass/Vol] 3.9 mg/dL Normal 2.6-4.7 [facility] Comment on above: Performed By: #### U KAJAL, RENAL #### [facility] [address] [address] [address] Santos Mchugh Potassium [Moles/Vol] 4.5 mmol/L Normal 3.5-5.1 [facility] Comment on above: Performed By: #### U KAJAL, RENAL #### [facility] [address] [address] [address] Santos Mchugh Sodium [Moles/Vol] 140 mmol/L Normal 136-145 [facility] Comment on above: Performed By: #### U KAJAL, RENAL #### [facility] [address] [address] [address] Santos Mchugh Urea nitrogen [Mass/Vol] 23.0 mg/dL Critically high 7.0-18.0 [facility] Comment on above: Performed By: #### U KAJAL, RENAL #### [facility] [address] [address] [address] Santos Mchugh Tobacco Screening.on 023 Fall risk assessment a) No falls within the last year -[facility] 250 DO Work Phone: Tobacco use status CPHS b) No M -[facility] 250 DO Work Phone: UA RANDOM W/MICROSCOPICon BACTERIA NONE SEEN Normal NONE SEEN [facility] Comment on above: Performed By: #### U AMIC #### [facility] [address] [place] [address] Dr. Santos Mchugh Bilirubin Ql (U) Negative Normal NEGATIVE [facility] Comment on above: Performed By: #### U AMIC #### [facility] [address] [place] [address] Dr. Santos Mchugh CAST NONE SEEN Normal NONE SEEN [facility] Comment on above: Performed By: #### U AMIC #### [facility] [address] [place] [address] Dr. Santos Mchugh Clarity (U) CLEAR Normal CLEAR [facility] Comment on above: Performed By: #### U AMIC #### [facility] [address] [address] [address] Santos Mchugh Color (U) LT. YELLOW Normal YELLOW [facility] Comment on above: Performed By: #### U AMIC #### [facility] [address] [address] [address] Santos Mchugh Crystals LM Nom (Urine sed) NONE SEEN Normal NONE SEEN [facility] Comment on above: Performed By: #### U AMIC #### [facility] [address] [address] [address] Santos Mchugh Epithelial cells LM Ql (Urine sed) NONE SEEN Normal NONE SEEN /RARE [facility] Comment on above: Performed By: #### U AMIC #### [facility] [address] [place] [address] Dr. Santos Mchugh Glucose Ql (U) Negative Normal NEGATIVE [facility] Comment on above: Performed By: #### U AMIC #### [facility] [address] [address] [address] Santos Mchugh Hemoglobin Ql (U) Negative Normal [facility] Comment on above: Performed By: #### U AMIC #### [facility] [address] [address] [address] Santos Mchugh Ketones Ql (U) Negative Normal NEGATIVE [facility] Comment on above: Performed By: #### U AMIC #### [facility] [address] [address] [address] Santos Mchugh LEUKOCYTES Negative Normal NEGATIVE [facility] Comment on above: Performed By: #### U AMIC #### [facility] [address] [address] [address] Santos Mchugh MUCOUS NONE SEEN Normal NONE SEEN [facility] Comment on above: Performed By: #### U AMIC #### [facility] [address] [address] [address] Santos Mchugh Nitrite Ql (U) Negative Normal NEGATIVE [facility] Comment on above: Performed By: #### U AMIC #### [facility] [address] [address] [address] Santos Mchugh pH (U) 6.0 [pH] Normal 5-9 [facility] Comment on above: Performed By: #### U AMIC #### [facility] [address] [address] [address] Santos Mchugh RBC 0-2 Normal 0-2 [facility] Comment on above: Performed By: #### U AMIC #### [facility] [address] [address] [address] Santos Mchugh SPEC GRAVITY 1.015 Normal 1.005-<=1.02 5 [facility] Comment on above: Performed By: #### U AMIC #### [facility] [address] [address] [address] Santos Mchugh UA PROTEIN 100 mg/dl Abnormal NEGATIVE/ TRACE [facility] Comment on above: Performed By: #### U AMIC #### [facility] [address] [place] [address] Dr. Santos Mchugh Urobilinogen Qn (U) 0.2 {Dolores'U}/dL Normal 0.2 - 1. 0 [facility] Comment on above: Performed By: #### U AMIC #### [facility] [address] [place] [address] Dr. Santos Mchugh WBC NONE SEEN Normal NONE SEEN [facility] Comment on above: Performed By: #### U AMIC #### [facility] [address] [place] [address] Dr. Santos Mchugh URIC ACID SERUMon 04-10-2023 Urate [Mass/Vol] 7.0 mg/dL Normal 3.5-7.2 [facility] Comment on above: Performed By: #### U KAJAL, RENAL #### [facility] [address] [place] [address] Dr. Santos Mchugh URINE T PROTEIN CREAT RATIOo n 04-10-2023 Protein (U) [Mass/Vol] 68.1 mg/dL Critically high <=12.0 [facility] Comment on above: Performed By: #### U RTPCR #### [facility] [address] [place] [address] Dr. Santos Mchugh UR PROT CREAT RAT 0.97 Normal [facility] Comment on above: Performed By: #### U RTPCR #### [facility] [address] [place] [address] Dr. Santos Mchugh URINE CREAT 70.53 mg/dL Normal 20.00-300.00 [facility] Comment on above: Performed By: #### U RTPCR #### [facility] [address] [place] [address] Dr. Santos Mchugh VITAMIN D 25 OHon 04-10-2023 VIT D 25-OH 41.0 ng/mL Normal [facility] Comment on above: Performed By: #### V ITAD #### [facility] [address] [place] [address] Dr. Santos Mchugh VIT D RANGES SEE BELOW Normal [facility] Comment on above: Result Comment: <20 ng/mL Vit D deficient 20 - <30 ng/mL Vit D insufficient 30 - 100 ng/mL Vit D sufficient >100 ng/mL Potential Toxicity Performed By: #### V ITAD #### [facility] [address] [address] [address] Santos Mchugh [facility] CARDIAC STRESS/REST INJE CTIONon 03-31-2023 [facility] CARDIAC STRESS/REST INJECTION Patient Name: ADRIEL GIRALDO STUDY: MYOCARDIAL PERFUSION STRESS TEST WITH LEXISCAN Performing facility: [facility], [address] [place] [address], [address], [place] [address] [facility] Provider: Lashell Osborn MD PCP: Dr. [place] Perez Supervising provider: Jemima Gastelum MD INDICATION: Abnormal EKG; Pre-operative risk assessment for Right knee scheduled at [facility] on TBD. HISTORY: Gender: M; Age: 72 y/o ; Height: 0 cm; Weight: 131.121593 kg. Abnormal EKG; High Cholesterol; Diabetes; HTN; Denies smoking. COMPARISON: No comparison. ACCESSION NUMBER(S): [id number]; [id number]; [id number] ORDERING CLINICIAN: LASHELL OSBORN TECHNIQUE: ONE DAY [...] Electronically signed by: JEMIMA GASTELUM MD Normal [facility] No Panel Informationon 03-31 FINAL REPORT Interpreted by: JEMIMA GASTELUM MD 04/01/23 16:28 Patient Name: ADRIEL GIRALDO STUDY: MYOCARDIAL PERFUSION STRESS TEST WITH LEXISCAN Performing facility: [facility], [address] [place] [address] Normal -[facility] [place] 250 DO Work Phone: Office Visit (Cardiology)on [...] GIRALDO is being seen for POC for Lamar Rt Knee. History of Present Illness 72 yo male here for pre-operative cardiac clearance prior to TKA of R knee. Patient has no complaints today including chest pain, VALENZUELA, presyncope/syncope. He is unable to complete > 4 METS due to knee pain. His ECG with incomplete LBBB. Has not had an ischemic evaluation in a few years. Initial visit: [facility]. Has a reported hx of CHF [...] TabletTAKE 1.5 TABLET 3 times daily Saw Sorrento 1000 MG Oral CapsuleTAKE DIRECTED. Vitamin D3 [...] Signs Recorded: 23Jan2023 09:16AM Heart Rate63, Apical Ycdvivuq572, LUE, Sitting Xjfunounz69, LUE, Sitting Height6 ft 2 in Bjvnju607 lb BMI Iljiduajcd06.75 kg/m2 BSA Calculated2.56 Tobacco Useb) No PHQ-2 [...] Will c (more content not included)... Normal [facility] Tobacco Screening.on 023 Adult depression screening assessment No [facility] 250 DO Work Phone: Fall risk assessment a) No falls within the last year [facility] 250 DO Work Phone: Tobacco use status CP b) No [facility] 250 DO Work Phone: MRI Knee w/o [...] by Abhinav Muller on 01/07/2023 1009 Normal [facility] Office Visit (Cardiology)on 12-26-2022 Follow-up visit Diagnoses/Problems Assessed Cardiomyopathy (425.4) (I42.9) CHF (NYHA class II, ACC/AHA stage C) (428.0) (I50.9) Hyperlipidemia (272.4) (E78.5) Primary hypertension (401.9) (I10) Class 2 obesity with body mass index (BMI) of 37.0 to 37.9 in adult (278.00,V85.37) (E66.9,Z68.37) Obstructive sleep apnea, adult (327.23) (G47.33) Never a smoker Orders Cardiomyopathy IO EKG Electrocardiogram- 12 Lead; Status:Complete; Done: [id number] Cardiomyopathy, Primary hypertension Renew: Carvedilol 12.5 MG [...] For - Scheduling,Retrospec tive Authorization Requested for: [id number] SocHx: Never a smoker Tobacco Use Screening; Status:Complete; Done: [id number] Patient Instructions Please bring all medicines, vitamins, [...] seen for a consultation for CHF- former [facility]. History of Present Illness 72 yo [...] TabletTAKE 1.5 TABLET 3 times daily Saw Sorrento 1000 MG Oral CapsuleTAKE DIRECTED. Vitamin D3 [...] negative for complaint. Vitals Vital Signs Recorded: [id number] 10:52AMRecorded: [id number] 10:51AM Xvrzjoem492, LUE, Dpchwnx118, RUE, Sitting Vynyrgqiy82, LUE, Eoovwef16, RUE, Sitting Heart Rate61, Apical Height6 ft 2 in Obbsls459 lb BMI Xenlhzigyg39.75 kg/m2 BSA Calculated2.56 Tobacco Useb) No PHQ-2 [...] current therap (more content not included)... Normal [facility] Tobacco Screening.on 023 Adult depression screening assessment No [facility] 250 DO Work Phone: Fall risk assessment a) No falls within the last year [facility] 250 DO Work Phone: Tobacco use status CPHS b) No M [facility] 250 DO Work Phone: Quick Fluon 09-08-2022 FLUAV Ab CF (S) [Titer] Negative N [employer] Other FLUBV Ab CF (S) [Titer] Negative N [employer] Other SARS-CoV-2 (COVID-19) RNA NA A+probe Ql (Resp)on 09-08-2022 SARS-CoV-2 (COVID-19) RNA HECTOR+probe Ql (Unsp spec) Positive [place] [employer] Other Auth for Release of Medical Recordson 11-15-2020 Auth for Release of Medical Records [id number] #1.00CD:127 Normal [facility] Formson 09-11-2020 Forms [id number] #1.00CD:127 [facility] Physician Referralon 020 Physician Referral [id number]# 1.00CD:127 [facility] Ambulatory Clinical Summaryo n 09-07-2020 Ambulatory Clinical Summary {[id number]}CD:[id number] [facility] Patient Educationon 09-07-20 [...] 01/24/2013 Document Reviewed: 07/07/2008 ExitCare? Patient Information ?2014 [employer]. Erectile Dysfunction Erectile dysfunction (ED) is the [...] Document Reviewed: 02/22/2012 ExitCare? Patient Information ?2013 [employer]. Normal [facility] Urology Office/Clinic Noteon 09-07-2020 Urology Office/Clinic [...] use pde5s due to nitro meds. 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 Reviewed UA. There have been no [...] that he has PSA tony at the [facility], and states that the levels are normal. SHANELLE was done today and was negative for any nodules. I have reviewed the previous health record information and history for this patient from Dr. Jackson Follow-up With When Contact Information JEAN CLAUDE JARA, Kevin Roberts Only if needed [facility] [address] [place] [address]- [phone] Additional Instructions: Patient Education Benign Prostatic Hyperplasia [...] Dipstick: 2+ (100 mg/dl) (09/07/20 10:27:00) Specific [place] Urine Dipstick: 1.025 (09/07/20 10:27:00) Urine Appearance Urine Dipstick: Clear (09/07/20 10:27:00) Urine Color Urine Dipstick: Yellow (09/07/20 10:27:00) Urobilinogen Urine Dipstick: Normal 0.2-1 EU/dl (09/07/20 10:27:00) pH Urine Dipstick: 5.5 (09/07/20 10:27:00) Normal [facility] Comment on above: Result Comment: Elec tronically Signed By: JEAN CLAUDE JARA, Kevin Roberts\.renetta\Date and Time Signed: 09/07/20 11:19 EDT\.br\Electronically Co-Signed By: Lashell Kimbrough MA.renetta\Date and Time Co-Signed: 10/23/20 11:16 EDT Vital Signs Date Time Vital Sign Value Performing Clinician Facility 04-27-2024 11:56-0400 Body height 185.42 cm [facility] 04-27-2024 11:56-0400 Body mass index (BMI) [Ratio] 36.6 kg/m2 [facility] 04-27-2024 11:56-0400 Body weight 126.09 kg [facility] 04-27-2024 11:56-0400 Diastolic blood pressure 68 mm[Hg] [facility] 04-27-2024 11:56-0400 Heart rate 64 /min [facility] 04-27-2024 11:56-0400 Systolic blood pressure 118 mm[Hg] [facility] 04-12-2024 09:55-0400 Body height 185.42 cm MD Jun Perez Work Phone: [facility] 04-12-2024 09:55-0400 Body mass index (BMI) [Ratio] 36.6 kg/m2 MD Jun Perez Work Phone: [facility] 04-12-2024 09:55-0400 Body weight 126.09 kg MD Jun Perez Work Phone: [facility] 04-12-2024 09:55-0400 Diastolic blood pressure 74 mm[Hg] MD Jun Perez Work Phone: [facility] [facility]12[facility]24 09:55-0400 Heart rate 59 /min MD Jun Perez Work Phone: [facility] 04-12-2024 09:55-0400 Systolic blood pressure 133 mm[Hg] MD Jun Perez Work Phone: [facility] 03-24-2024 10:34-0400 Body height 185.42 cm MD Jun Perez Work Phone: [facility] 03-24-2024 10:34-0400 Body mass index (BMI) [Ratio] 36.5 kg/m2 MD Jun Perez Work Phone: [facility] 03-24-2024 10:34-0400 Body weight 125.64 kg MD Jun Perez Work Phone: [facility] 03-24-2024 10:34-0400 Diastolic blood pressure 66 mm[Hg] MD Jun Perez Work Phone: [facility] 03-24-2024 10:34-0400 Heart rate 83 /min MD Jun Perez Work Phone: [facility] 03-24-2024 10:34-0400 Respiratory rate 18 /min MD Jun Perez Work Phone: [facility] 03-24-2024 10:34-0400 SaO2% (BldA) [Mass fraction] 97 % MD Jun Perez Work Phone: [facility] 03-24-2024 10:34-0400 Systolic blood pressure 145 mm[Hg] MD Jun Perez Work Phone: [facility] 03-22-2024 11:20-0400 Body height 185.42 cm MD Jun Perez Work Phone: [facility] 03-22-2024 11:20-0400 Body mass index (BMI) [Ratio] 36.3 kg/m2 MD Jun Perez Work Phone: [facility] 03-22-2024 11:20-0400 Body weight 124.73 kg MD Jun Perez Work Phone: [facility] 03-22-2024 11:20-0400 Diastolic blood pressure 72 mm[Hg] MD Jun Perez Work Phone: [facility] 03-22-2024 11:20-0400 Heart rate 53 /min MD Jun Perez Work Phone: [facility] 03-22-2024 11:20-0400 Respiratory rate 18 /min MD Jun Perez Work Phone: [facility] 03-22-2024 11:20-0400 SaO2% (BldA) [Mass fraction] 98 % MD Jun Perez Work Phone: [facility] 03-22-2024 11:20-0400 Systolic blood pressure 140 mm[Hg] MD Jun Perez Work Phone: [facility] 01-11-2024 11:46-0500 Body height 185.42 cm MD Jun Perez Work Phone: [facility] 01-11-2024 11:46-0500 Body mass index (BMI) [Ratio] 36.3 kg/m2 MD Jun Perez Work Phone: [facility] 01-11-2024 11:46-0500 Body weight 125.19 kg MD Jun Perez Work Phone: [facility] 01-11-2024 11:46-0500 Diastolic blood pressure 78 mm[Hg] MD Jun Perez Work Phone: [facility] 01-11-2024 11:46-0500 Heart rate 68 /min MD Jun Perez Work Phone: [facility] 01-11-2024 11:46-0500 Respiratory rate 18 /min MD Jun Perez Work Phone: [facility] 01-11-2024 11:46-0500 SaO2% (BldA) [Mass fraction] 98 % MD Jun Perez Work Phone: [facility] 01-11-2024 11:46-0500 Systolic blood pressure 142 mm[Hg] MD Jun Perez Work Phone: [facility] 01-05-2024 11:58-0500 Body height 185.42 cm MD uJn Perez Work Phone: [facility] 01-05-2024 11:58-0500 Body mass index (BMI) [Ratio] 36.6 kg/m2 MD Jun Perez Work Phone: [facility] 01-05-2024 11:58-0500 Body temperature 96.9 [degF] MD Jun Perez Work Phone: [facility] 01-05-2024 11:58-0500 Body weight 125.7 kg MD Jun Perez Work Phone: [facility] 01-05-2024 11:58-0500 Diastolic blood pressure 77 mm[Hg] MD Jun Perez Work Phone: [facility] 01-05-2024 11:58-0500 Heart rate 55 /min MD Jun Perez Work Phone: [facility] 01-05-2024 11:58-0500 Respiratory rate 18 /min MD Jun Perez Work Phone: [facility] 01-05-2024 11:58-0500 SaO2% (BldA) [Mass fraction] 98 % MD Jun Perez Work Phone: [facility] 01-05-2024 11:58-0500 Systolic blood pressure 131 mm[Hg] MD Jun Perez Work Phone: [facility] 12-31-2023 11:36-0500 Body height 185.42 cm MD Jun Perez Work Phone: [facility] 12-31-2023 11:36-0500 Body mass index (BMI) [Ratio] 36.4 kg/m2 MD Jun Perez Work Phone: [facility] 12-31-2023 11:36-0500 Body weight 125.24 kg MD Jun Perez Work Phone: [facility] 12-31-2023 11:36-0500 Diastolic blood pressure 70 mm[Hg] MD Jun Perez Work Phone: [facility] 12-31-2023 11:36-0500 Heart rate 60 /min MD Jun Perez Work Phone: [facility] 12-31-2023 11:36-0500 Systolic blood pressure 131 mm[Hg] MD Jun Perez Work Phone: [facility] 12-22-2023 10:00-0500 Body height 185.42 cm Tondra Mapus Other [facility] Other 12-22-2023 10:00-0500 Body mass index (BMI) [Ratio] 36.75 kg/m2 Tondra Mapus Other [facility] Other 12-22-2023 10:00-0500 Body weight 126.37 kg Tondra Mapus Other [facility] Other 12-22-2023 10:00-0500 Diastolic blood pressure 76 mm[Hg] Tondra Mapus Other [facility] Other 12-22-2023 10:00-0500 Respiratory rate 18 /min Tondra Mapus Other [facility] Other 12-22-2023 10:00-0500 SaO2% (BldA) [Mass fraction] 98 % Tondra Mapus Other [facility] Other 12-22-2023 10:00-0500 Systolic blood pressure 137 mm[Hg] Tondra Mapus Other [facility] Other 12-14-2023 11:20-0500 Body height 185.42 cm Jose Yu Other [facility] 12-14-2023 11:20-0500 Body mass index (BMI) [Ratio] 36.94 kg/m2 Jose Adrianaomia Other [facility] Other 12-14-2023 11:20-0500 Body weight 127.01 kg Jose Adrianaomia Other [facility] Other 12-14-2023 11:20-0500 Body weight 127 kg MD Jun Perez Work Phone: [facility] 12-14-2023 11:20-0500 Diastolic blood pressure 84 mm[Hg] Jose Koromia Other [facility] 12-14-2023 11:20-0500 Respiratory rate 18 /min Jose Koromia Other [facility] Other 12-14-2023 11:20-0500 SaO2% (BldA) [Mass fraction] 98 % Jose Koromia Other [facility] Other 12-14-2023 11:20-0500 Systolic blood pressure 156 mm[Hg] Jose Koromia Other [facility] 11-18-2023 11:20-0500 Body height 185.42 cm Jose Koromia Other [facility] 11-18-2023 11:20-0500 Body mass index (BMI) [Ratio] 36.15 kg/m2 Jose Koromia Other [facility] Other 11-18-2023 11:20-0500 Body weight 124.29 kg Jose Koromia Other [facility] Other 11-18-2023 11:20-0500 Body weight 124.28 kg MD Jun Perez Work Phone: [facility] 11-18-2023 11:20-0500 Diastolic blood pressure 70 mm[Hg] Jose Koromia Other [facility] 11-18-2023 11:20-0500 Respiratory rate 18 /min Jose Koromia Other [facility] Other 11-18-2023 11:20-0500 SaO2% (BldA) [Mass fraction] 96 % Jose Koromia Other [facility] Other 11-18-2023 11:20-0500 Systolic blood pressure 132 mm[Hg] Jose Yu Other [facility] 10-31-2023 12:15-0500 Body height 185.42 cm MD Jun Perez Work Phone: [facility] 10-31-2023 12:15-0500 Body weight 127 kg MD Jun Perez Work Phone: [facility] 10-31-2023 12:15-0500 Diastolic blood pressure 71 mm[Hg] MD Jun Perez Work Phone: [facility] 10-31-2023 12:15-0500 Systolic blood pressure 130 mm[Hg] MD Jun Perez Work Phone: [facility] 10-21-2023 12:17-0500 Diastolic blood pressure 78 mm[Hg] MD Jun Perez Work Phone: [facility] 10-21-2023 12:17-0500 Heart rate 54 /min MD Jun Perez Work Phone: [facility] 10-21-2023 12:17-0500 Respiratory rate 16 /min MD Jun Perez Work Phone: [facility] 10-21-2023 12:17-0500 SaO2% (BldA) [Mass fraction] 98 % MD Jun Perez Work Phone: [facility] 10-21-2023 12:17-0500 Systolic blood pressure 144 mm[Hg] MD Jun Perez Work Phone: [facility] 10-21-2023 10:35-0500 Body height 187.96 cm MD Jun Perez Work Phone: [facility] 10-21-2023 10:35-0500 Body temperature 97.8 [degF] MD Jun Perez Work Phone: [facility] 10-21-2023 10:35-0500 Body weight 121.1 kg MD Jun Perez Work Phone: [facility] 10-15-2023 11:23-0500 Body height 188 cm Britney Yu MD Work Phone: [facility] 10-15-2023 11:23-0500 Body mass index (BMI) [Ratio] 35.31 kg/m2 Britney Yu MD Work Phone: [facility] 10-15-2023 11:23-0500 Body weight 124.74 kg Britney Yu MD Work Phone: [facility] 10-15-2023 11:23-0500 Diastolic blood pressure 82 mm[Hg] Britney Yu MD Work Phone: [facility] 10-15-2023 11:23-0500 Heart rate 64 /min Britney Yu MD Work Phone: [facility] 10-15-2023 11:23-0500 Systolic blood pressure 130 mm[Hg] Britney Yu MD Work Phone: [facility] 09-28-2023 10:32-0500 Body height 188 cm Britney Yu MD Work Phone: [facility] 09-28-2023 10:32-0500 Body mass index (BMI) [Ratio] 36.21 kg/m2 Britney Yu MD Work Phone: [facility] 09-28-2023 10:32-0500 Body weight 127.91 kg Britney Yu MD Work Phone: [facility] 09-28-2023 10:32-0500 Diastolic blood pressure 80 mm[Hg] Britney Yu MD Work Phone: [facility] 09-28-2023 10:32-0500 Heart rate 64 /min Britney Yu MD Work Phone: [facility] 09-28-2023 10:32-0500 Systolic blood pressure 138 mm[Hg] Britney Yu MD Work Phone: [facility] 09-17-2023 09:45-0400 Body height 185.42 cm Tondra Mapus Other [facility] Other 09-17-2023 09:45-0400 Body mass index (BMI) [Ratio] 37.33 kg/m2 Tondra Mapus Other [facility] Other 09-17-2023 09:45-0400 Body weight 128.37 kg Tondra Mapus Other [facility] Other 09-17-2023 09:45-0400 Diastolic blood pressure 68 mm[Hg] Tondra Mapus Other [facility] Other 09-17-2023 09:45-0400 Respiratory rate 18 /min Tondra Mapus Other [facility] Other 09-17-2023 09:45-0400 SaO2% (BldA) [Mass fraction] 96 % Tondra Mapus Other [facility] Other 09-17-2023 09:45-0400 Systolic blood pressure 128 mm[Hg] Tondra Mapus Other [facility] Other 06-08-2023 11:25-0400 Body height 187.96 cm Jun Perez Work Phone: [employer] Work Phone: 06-08-2023 11:25-0400 Body mass index (BMI) [Ratio] 36.72 kg/m2 Jun Perez Work Phone: [employer] [facility] [place] [facility] DO Work Phone: 06-08-2023 11:25-0400 Body surface area Derived from formula 2.53 m2 Jun Perez Work Phone: [facility] 250 DO Work Phone: 06-08-2023 11:25-0400 Body weight 129.73 kg Jun Perez Work Phone: [facility] [facility] DO Work Phone: 06-08-2023 11:25-0400 Diastolic blood pressure 68 mm[Hg] Jun Perez Work Phone: [facility] DO Work Phone: 06-08-2023 11:25-0400 Heart rate 56 /min Jun Perez Work Phone: [facility] [facility] DO Work Phone: 06-08-2023 11:25-0400 Systolic blood pressure 136 mm[Hg] Jun Perez Work Phone: [facility] DO Work Phone: 05-14-2023 10:45-0400 Body height 187.96 cm Jun Perez Work Phone: [facility] 250 DO Work Phone: 05-14-2023 10:45-0400 Body mass index (BMI) [Ratio] 36.85 kg/m2 Jun Perez Work Phone: [facility] 250 DO Work Phone: 05-14-2023 10:45-0400 Body surface area Derived from formula 2.53 m2 Jun Perez Work Phone: [facility] 250 DO Work Phone: 05-14-2023 10:45-0400 Body weight 130.18 kg Jun Perez Work Phone: [facility] [employer] 250 DO Work Phone: 05-14-2023 10:45-0400 Diastolic blood pressure 80 mm[Hg] Jun Perez Work Phone: [facility] [employer] 250 DO Work Phone: 05-14-2023 10:45-0400 Heart rate 56 /min Jun Perez Work Phone: [facility] [employer] 250 DO Work Phone: 05-14-2023 10:45-0400 Systolic blood pressure 128 mm[Hg] Jun Perez Work Phone: [facility] [employer] 250 DO Work Phone: 04-17-2023 09:15-0400 Body height 185.42 cm Jun Perez Other [facility] Other 04-17-2023 09:15-0400 Body mass index (BMI) [Ratio] 38.52 kg/m2 Jun Perez Other [facility] Other 04-17-2023 09:15-0400 Body weight 132.45 kg Jun Perez Other [facility] Other 04-17-2023 09:15-0400 Diastolic blood pressure 77 mm[Hg] Jun Perez Other [facility] Other 04-17-2023 09:15-0400 Systolic blood pressure 146 mm[Hg] Jun Perez Other [facility] Other 04-16-2023 11:40-0400 Body height 185.42 cm Tj Solis Other [facility] Other 04-16-2023 11:40-0400 Body mass index (BMI) [Ratio] 39.14 kg/m2 Tj Mayo Other [facility] Other 04-16-2023 11:40-0400 Body temperature 97.8 [degF] Tj Mayo Other [facility] Other 04-16-2023 11:40-0400 Body weight 134.58 kg Tj Mayo Other [facility] Other 04-16-2023 11:40-0400 Diastolic blood pressure 80 mm[Hg] Tj Mayo Other [facility] Other 04-16-2023 11:40-0400 Respiratory rate 18 /min Tj Mayo Other [facility] Other 04-16-2023 11:40-0400 SaO2% (BldA) [Mass fraction] 97 % Tj Mayo Other [facility] Other 04-16-2023 11:40-0400 Systolic blood pressure 144 mm[Hg] Tj Mayo Other [facility] Other 04-10-2023 15:44-0400 Body height 187.96 cm Jun Perez Work Phone: [facility] [employer] 250 DO Work Phone: 04-10-2023 15:44-0400 Body mass index (BMI) [Ratio] 25.17 kg/m2 Jun Perez Work Phone: [facility] [employer] 250 DO Work Phone: 04-10-2023 15:44-0400 Body surface area Derived from formula 2.15 m2 Jun Perez Work Phone: [facility] [employer] 250 DO Work Phone: 04-10-2023 15:44-0400 Body weight 88.91 kg Jun Perez Work Phone: [facility] [employer] 250 DO Work Phone: 04-10-2023 15:44-0400 Diastolic blood pressure 72 mm[Hg] Jun Perez Work Phone: [facility] [employer] 250 DO Work Phone: 04-10-2023 15:44-0400 Heart rate 64 /min Jun Perez Work Phone: [facility] [employer] 250 DO Work Phone: 04-10-2023 15:44-0400 Systolic blood pressure 126 mm[Hg] Jun Perez Work Phone: [facility] [employer] 250 DO Work Phone: 02-17-2023 12:15-0400 Body height 185.42 cm Jun Perez Other [facility] Other 02-17-2023 12:15-0400 Body mass index (BMI) [Ratio] 38.39 kg/m2 Jun Perez Other [facility] Other 02-17-2023 12:15-0400 Body temperature 98.6 [degF] Jun Perez Other [facility] Other 02-17-2023 12:15-0400 Body weight 132 kg Jun Perez Other [facility] Other 02-17-2023 12:15-0400 Diastolic blood pressure 82 mm[Hg] Jun Perez Other [facility] Other 02-17-2023 12:15-0400 SaO2% (BldA) [Mass fraction] 97 % Jun Perez Other [place] [employer] Other 02-17-2023 12:15-0400 Systolic blood pressure 122 mm[Hg] Jun Perez Other [facility] Other 02-04-2023 16:40-0400 Body height 185.42 cm Tj Mayo Other [facility] Other 02-04-2023 16:40-0400 Body mass index (BMI) [Ratio] 38.28 kg/m2 Tj Mayo Other [facility] Other 02-04-2023 16:40-0400 Body weight 131.63 kg Tj Mayo Other [facility] Other 02-04-2023 16:40-0400 Diastolic blood pressure 96 mm[Hg] Tj Mayo Other [facility] Other 02-04-2023 16:40-0400 Respiratory rate 18 /min Tj Mayo Other [facility] Other 02-04-2023 16:40-0400 SaO2% (BldA) [Mass fraction] 98 % Tj Mayo Other [facility] Other 02-04-2023 16:40-0400 Systolic blood pressure 164 mm[Hg] Tj Mayo Other [facility] Other 01-23-2023 09:16-0500 Body height 187.96 cm Jun Perez Work Phone: [place] [address] DO Work Phone: 01-23-2023 09:16-0500 Body mass index (BMI) [Ratio] 37.75 kg/m2 Jun Perez Work Phone: [facility] 250 DO Work Phone: 01-23-2023 09:16-0500 Body surface area Derived from formula 2.56 m2 Jun Perez Work Phone: [facility] 250 DO Work Phone: 01-23-2023 09:16-0500 Body weight 133.36 kg Jun Perez Work Phone: [facility] DO Work Phone: 01-23-2023 09:16-0500 Diastolic blood pressure 82 mm[Hg] Jun Perez Work Phone: [facility] 250 DO Work Phone: 01-23-2023 09:16-0500 Heart rate 63 /min Jun Perez Work Phone: [facility] 250 DO Work Phone: 01-23-2023 09:16-0500 Systolic blood pressure 136 mm[Hg] Jun Perez Work Phone: [facility] DO Work Phone: 12-26-2022 10:52-0500 Diastolic blood pressure 80 mm[Hg] Jun Perez Work Phone: [facility] DO Work Phone: 12-26-2022 10:52-0500 Systolic blood pressure 148 mm[Hg] Jun Perez Work Phone: [facility] DO Work Phone: 12-26-2022 10:51-0500 Body height 187.96 cm Jun Perez Work Phone: [facility] 250 DO Work Phone: 12-26-2022 10:51-0500 Body mass index (BMI) [Ratio] 37.75 kg/m2 Jun Perez Work Phone: [facility] DO Work Phone: 12-26-2022 10:51-0500 Body surface area Derived from formula 2.56 m2 Jun Perez Work Phone: [facility] 250 DO Work Phone: 12-26-2022 10:51-0500 Body weight 133.36 kg Jun Perez Work Phone: [facility] 250 DO Work Phone: 12-26-2022 10:51-0500 Diastolic blood pressure 80 mm[Hg] Jun Perez Work Phone: [facility] 250 DO Work Phone: 12-26-2022 10:51-0500 Heart rate 61 /min Jun Perez Work Phone: [facility] 250 DO Work Phone: 12-26-2022 10:51-0500 Systolic blood pressure 146 mm[Hg] Jun Perez Work Phone: [facility] 250 DO Work Phone: 12-01-2022 16:00-0500 Body height 185.42 cm Jun Perez Other [facility] [employer] Other 12-01-2022 16:00-0500 Body mass index (BMI) [Ratio] 38.92 kg/m2 Jun Perez Other [place] [employer] Other 12-01-2022 16:00-0500 Body weight 133.81 kg Jun Perez Other [facility] Other 12-01-2022 16:00-0500 Diastolic blood pressure 80 mm[Hg] Jun Perez Other [facility] Other 12-01-2022 16:00-0500 SaO2% (BldA) [Mass fraction] 98 % Jun Perez Other [facility] Other 12-01-2022 16:00-0500 Systolic blood pressure 140 mm[Hg] Jun Perez Other [facility] Other 11-20-2022 10:30-0500 Body height 187.96 cm Edie Morse Other [facility] Other 11-20-2022 10:30-0500 Body mass index (BMI) [Ratio] 37.61 kg/m2 Edie Morse Other [facility] Other 11-20-2022 10:30-0500 Body weight 132.9 kg Edie Morse Other [facility] Other 11-20-2022 10:30-0500 Diastolic blood pressure 79 mm[Hg] Edie Morse Other [facility] Other 11-20-2022 10:30-0500 Respiratory rate 20 /min Edie Morse Other [facility] Other 11-20-2022 10:30-0500 SaO2% (BldA) [Mass fraction] 98 % Edie Morse Other [facility] Other 11-20-2022 10:30-0500 Systolic blood pressure 146 mm[Hg] Edie Morse Other [facility] Other 09-08-2022 10:15-0400 Body height 187.96 cm Phyllis Reyes Other [facility] Other 09-08-2022 10:15-0400 Body mass index (BMI) [Ratio] 36.59 kg/m2 Phyllis Amy Other [facility] Other 09-08-2022 10:15-0400 Body temperature 97.6 [degF] Phyllis Amy Other [facility] Other 09-08-2022 10:15-0400 Body weight 129.28 kg Phyllis Amy Other [facility] Other 09-08-2022 10:15-0400 Diastolic blood pressure 59 mm[Hg] Phyllis Amy Other [facility] Other 09-08-2022 10:15-0400 Respiratory rate 18 /min Phyllis Amy Other [facility] Other 09-08-2022 10:15-0400 SaO2% (BldA) [Mass fraction] 97 % Phyllis Amy Other [facility] Other 09-08-2022 10:15-0400 Systolic blood pressure 112 mm[Hg] Phyllis Amy Other [facility] Other 05-25-2022 13:35-0400 Body height 187.96 cm Phyllis Amy Other [facility] Other 05-25-2022 13:35-0400 Body mass index (BMI) [Ratio] 37.23 kg/m2 Phyllis Reyes Other [facility] Other 05-25-2022 13:35-0400 Body temperature 97.4 [degF] Phyllis Reyes Other [facility] Other 05-25-2022 13:35-0400 Body weight 131.54 kg Phyllis Reyes Other [facility] Other 05-25-2022 13:35-0400 Diastolic blood pressure 82 mm[Hg] Phyllis Reyes Other [facility] Other 05-25-2022 13:35-0400 Respiratory rate 18 /min Phyllis Reyes Other [facility] Other 05-25-2022 13:35-0400 SaO2% (BldA) [Mass fraction] 96 % Phyllis Reyes Other [facility] Other 05-25-2022 13:35-0400 Systolic blood pressure 142 mm[Hg] Phyllis Reyes Other [facility] Other 04-30-2022 11:00-0400 Body height Mary Adelaide Other [facility] Other 04-30-2022 11:00-0400 Body mass index (BMI) [Ratio] 37.23 kg/m2 Mary Bryson Other [facility] Other 04-30-2022 11:00-0400 Body weight 131.54 kg Mary Bryson Other [facility] Other Encounters Encounter Date Encounter Type Care Provider Facility Start: 04-27-2024 End: 04-27-2024 ambulatory [facility] Work Phone: Start: 04-27-2024 End: 04-27-2024 Patient encounter procedure [facility] Work Phone: Start: 04-20-2024 Non-patient / Non-visit [facility] Card[facility] Work Phone: Start: 04-12-2024 End: 04-12-2024 ambulatory MD Jun Perez Work Phone: [facility] Work Phone: Start: 04-12-2024 End: 04-12-2024 Patient encounter procedure MD Jun Perez Work Phone: [facility] Work Phone: Start: 03-24-2024 End: 03-24-2024 ambulatory MD Jun Perez Work Phone: [facility] Work Phone: Start: 03-24-2024 End: 03-24-2024 Patient encounter procedure MD Jun Perez Work Phone: [facility] Work Phone: Start: 03-22-2024 End: 03-22-2024 ambulatory MD Jun Perez Work Phone: [facility] Work Phone: Start: 03-22-2024 End: 03-22-2024 Patient encounter procedure MD Jun Perez Work Phone: [facility] Cardiology Work Phone: Start: 03-07-2024 End: 03-07-2024 Patient encounter procedure MD Jun Perez Work Phone: [facility] Work Phone: Start: 03-07-2024 End: 03-07-2024 ambulatory MD Jun Perez Work Phone: [facility] Work Phone: Start: 03-07-2024 Non-patient / Non-visit [facility] Work Phone: Start: 01-11-2024 End: 01-11-2024 ambulatory MD Jun Perez Work Phone: [facility] Work Phone: Start: 01-11-2024 End: 01-11-2024 Patient encounter procedure MD Jun Perez Work Phone: [facility] Work Phone: Start: 01-08-2024 Non-patient / Non-visit MD Xochitl Perez Work Phone: [facility] Work Phone: Start: 01-05-2024 End: 01-05-2024 ambulatory MD Jun Perez Work Phone: [facility] Work Phone: Start: 01-05-2024 End: 01-05-2024 Patient encounter procedure MD Jun Perez Work Phone: [facility] Work Phone: Start: 01-04-2024 Non-patient / Non-visit MD Xochitl Perez Work Phone: [facility] Work Phone: Start: 12-31-2023 End: 12-31-2023 ambulatory MD Jun Perez Work Phone: [facility] Work Phone: Start: 12-31-2023 End: 12-31-2023 Patient encounter procedure MD Jun Perez Work Phone: [facility] Work Phone: Start: 12-22-2023 (DM) Diabetes Tondra Dione [facility] Start: 12-22-2023 End: 12-22-2023 ambulatory MD Jun Perez Work Phone: [facility] [employer] Other Start: 12-22-2023 End: 12-22-2023 Discharged Recurring MD Jun Perez [facility]: [facility] Work Phone: Start: 12-22-2023 Registered Recurring MD Jun Perez Work Phone: [facility] Work Phone: Start: 12-14-2023 End: 12-14-2023 ambulatory Jose Koromia Other [facility] [employer] Other Start: 12-14-2023 Office outpatient vi sit 25 minutes Jose Koromia [facility] Start: 12-14-2023 Telephone encounter Jose Yu [facility] Start: 12-14-2023 End: 12-14-2023 Patient encounter procedure MD Jun Perez Work Phone: [facility]- Start: 11-20-2023 Patient encounter procedure MD Jun Perez Work Phone: [facility]- Start: 11-19-2023 End: 11-19-2023 ambulatory Jun Perez Other [employer] Other Start: 11-19-2023 Office outpatient vi sit 15 minutes Jun Perez [facility] Start: 11-19-2023 Telephone encounter Tj Solis [facility] Start: 11-18-2023 End: 11-18-2023 ambulatory Jose Wrightomia Other [facility] Other Start: 11-18-2023 Office outpatient ne w 45 minutes Jose Koromia [facility] Start: 11-18-2023 End: 11-18-2023 Patient encounter procedure MD Jun Perez Work Phone: [facility] Work Phone: Start: 11-05-2023 End: 11-05-2023 Patient encounter procedure MD Jun Perez Work Phone: [facility] [place] Work Phone: Start: 11-05-2023 End: 11-05-2023 ambulatory MD Jun Perez Work Phone: [facility] Work Phone: Start: 11-04-2023 End: 11-04-2023 ambulatory Duncan Parham Other [facility] [employer] Other Start: 11-04-2023 Telephone encounter Duncan Parham [facility] Start: 10-31-2023 End: 10-31-2023 Patient encounter procedure MD Jun Perez Work Phone: [facility] Work Phone: Start: 10-26-2023 End: 10-26-2023 Patient encounter procedure MD Jun Perez Work Phone: [facility] [place] Work Phone: Start: 10-26-2023 End: 10-26-2023 ambulatory MD Jun Perez Work Phone: [facility] Work Phone: Start: 10-21-2023 End: 10-21-2023 Admission to same day surgery center MD Jun Perez Work Phone: [facility] Work Phone: Start: 10-21-2023 End: 10-21-2023 ambulatory MD Jun Perez Work Phone: [facility] Work Phone: Start: 10-15-2023 End: 10-15-2023 ambulatory [facility] Start: 10-15-2023 End: 10-15-2023 Office outpatient visit 25 minutes Britney Yu MD Work Phone: [facility] Comment on above: CHF (congestive hear t failure), NYHA class II, acute on chronic, combined (CMS/HCC); Primary hypertension; Nonischemic cardiomyopathy (CMS/HCC); Medication course changed; Hypertensive heart and CKD, 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); Mixed hyperlipidemia; Diabetes mellitus with kidney disease (CMS/HCC) Start: 09-28-2023 Telephone encounter Nancy MOSQUEDA Nephrology Start: 09-28-2023 End: 09-28-2023 ambulatory BRITNEY YU [facility] [employer] Other Start: 09-28-2023 End: 09-28-2023 Office outpatient visit 25 minutes Britney Yu MD Work Phone: [facility] Comment on above: Personality disorder (CMS/HCC) (Primary Dx); Obesity, morbid (CMS/HCC); Hypertensive heart and CKD, 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); CHF (congestive heart failure), NYHA class II, acute on chronic, combined (CMS/HCC); Diabetes mellitus with kidney disease (CMS/HCC); Mixed hyperlipidemia; Primary hypertension; Medication course changed Start: 09-25-2023 Patient encounter status Luis Yu MD Work Phone: [facility] Work Phone: Start: 09-17-2023 (DM) Diabetes Duncan Parham [facility] Start: 09-17-2023 Telephone encounter Nancy MOSQUEDA Nephrology Start: 09-17-2023 End: 09-17-2023 Patient encounter procedure MD Jun Perez Work Phone: [facility] [place] Work Phone: Start: 09-17-2023 End: 09-17-2023 ambulatory MD Jun Perez Work Phone: [facility] [employer] Other Start: 09-17-2023 Registered Recurring MD Jun Perez Work Phone: [facility] Work Phone: Start: 09-15-2023 End: 09-15-2023 ambulatory Rodney Victor Other [facility] Other Start: 09-15-2023 Telephone encounter Rodney AMAYA G [facility] Worker Start: 08-17-2023 End: 08-17-2023 ambulatory CAROLEE GONZALEZ Facility:[facility] Start: 06-08-2023 Office outpatient vi sit 25 minutes Jun Perez Work Phone: [facility] 250 DO Work Phone: Start: 05-14-2023 Office outpatient vi sit 25 minutes Jun Perez Work Phone: [facility] 250 DO Work Phone: Start: 05-14-[address] Jun Perez Facility: Start: 05-06-2023 End: 05-07-2023 ambulatory Ritchie Eduardorenee AugusteGiselle Facility:[facility] Start: 05-01-2023 End: 05-01-2023 ambulatory Jun Perez Other [facility] Other Start: 05-01-2023 Telephone encounter Jun Perez [facility] Start: 04-27-2023 ambulatory Odilia Pima Facility:[id number] Start: 04-17-2023 End: 04-17-2023 ambulatory Jun Perez Other [facility] Other Start: 04-17-2023 Office outpatient vi sit 25 minutes Jun Perez [facility] Start: 04-16-2023 End: 04-16-2023 ambulatory Tj Mayo Other [facility] Other Start: 04-16-2023 Office outpatient vi sit 25 minutes Tj Mayo [facility] Start: 04-10-2023 Office outpatient vi sit 25 minutes Jun Perez Work Phone: [facility] 250 DO Work Phone: Start: 04-10-2023 Patient encounter procedure Jun Perez Work Phone: [facility] 250 DO Work Phone: Start: 04-10-[address] Jun Perez Facility: Start: 04-10-2023 End: 04-11-2023 ambulatory TJ MAYO Facility:[id number] Start: 04-01-[address] Lashell Betancourt ty:[id number] Start: 03-31-2023 Encounter for preprocedural cardiovascular examination Dr. Lashell Osborn [facility] Start: 03-31-[address] Lashell Betancourt ty:[id number] Start: 03-31-2023 Encounter for preprocedural cardiovascular examination Dr. Lashell Osborn [facility] Start: 03-09-2023 End: 03-09-2023 ambulatory Tj Mayo Other [facility] Other Start: 03-09-2023 Telephone encounter Tj Mayo [facility] Start: 02-17-2023 End: 02-17-2023 ambulatory Jun Perez Other [facility] Other Start: 02-17-2023 Office outpatient vi sit 15 minutes Jun Perez [facility] Start: 02-06-2023 End: 02-06-2023 ambulatory Tj Mayo Other [facility] [employer] Other Start: 02-06-2023 Telephone encounter Tj Mayo [facility] Start: 02-04-2023 End: 02-04-2023 ambulatory Tj Mayo Other [facility] [employer] Other Start: 02-04-2023 Office outpatient ne w 45 minutes Tj Mayo [facility] Start: 02-04-2023 Telephone encounter Tj Mayo [facility] Start: 01-23-2023 Office outpatient vi sit 25 minutes Jun Perez Work Phone: [facility] 250 DO Work Phone: Start: 01-23-[address] Jun Perez Facility: Start: 12-29-2022 End: 12-29-2022 ambulatory Jun Perez Other [facility] Other Start: 12-29-2022 Telephone encounter Jun Perez [facility] Start: 12-26-2022 Office outpatient ne w 45 minutes Jun Perez Work Phone: [facility] 250 DO Work Phone: Start: 12-26-[address] Malika Patel Facility: Start: 12-02-2022 End: 12-02-2022 ambulatory Jun Perez Other [facility] [employer] Other Start: 12-02-2022 Telephone encounter Jun Perez [facility] Start: 12-01-2022 End: 12-01-2022 ambulatory Jun Perez Other [facility] [employer] Other Start: 12-01-2022 Office outpatient ne w 60 minutes Jun Perez [facility] Start: 11-25-2022 End: 11-25-2022 ambulatory Edie Morse Other [facility] [employer] Other Start: 11-25-2022 Telephone encounter Edie azar [facility] Start: 11-20-2022 End: 11-20-2022 ambulatory Edie Morse Other [facility] Other Start: 11-20-2022 Office outpatient ne w 30 minutes Edie Morse [facility] Start: 09-08-2022 End: 09-08-2022 ambulatory Phyllis Reyes Other [facility] Other Start: 09-08-2022 Office outpatient vi sit 15 minutes Phyllisfady Reyes [facility] Start: 05-25-2022 End: 05-25-2022 ambulatory Phyllisfady Reyes Other [facility] [employer] Other Start: 05-25-2022 Office outpatient vi sit 15 minutes Phyllis Amy [facility] Start: 04-30-2022 End: 04-30-2022 ambulatory Maryloren Bryson Other [facility] [employer] Other Start: 04-30-2022 Office outpatient vi sit 25 minutes Mary Calvey [facility] Start: 03-13-2013 End: 03-14-2013 Emergency department patient visit NO REFERRING DR Facility:[facility] Patient encounter status Jun Perez Work Phone: [facility] 250 DO Work Phone: Procedures Date Procedure [...] procedure 03/28/2024 10:45 AM EDT Office Visit [facility] [address] [facility] [address] [place] [address] Britney Yu MD [address] [facility] [address] [place], [place] [id number] [facility] Start: 10-29-2023 End: 10-15-2024 Basic metabolic 2000 panel - Serum or Plasma Basic Metabolic Panel Lab Routine CHF (congestive heart failure), NYHA class II, acute on chronic, combined (CMS/HCC) Nonischemic cardiomyopathy (CMS/HCC) Medication course changed Expected: 10/29/2023 (Approximate), Expires: 10/15/2024 [facility] Work Phone: Comment on above: Expected: 10/29/2023 (Approximate), Expires: 10/15/2024 Start: 10-22-2023 End: 10-15-2024 Basic metabolic 2000 panel - Serum or Plasma Basic Metabolic Panel Lab Routine CHF (congestive heart failure), NYHA class II, acute on chronic, combined (CMS/HCC) Nonischemic cardiomyopathy (CMS/HCC) Medication course changed Expected: 10/22/2023 (Approximate), Expires: 10/15/2024 [facility] Work Phone: Comment on above: Expected: 10/22/2023 (Approximate), Expires: 10/15/2024 Start: 10-21-2023 [facility] Start: 10-15-2023 End: 10-15-2023 Patient encounter procedure 10/15/2023 10:45 AM EST Office Visit [facility] [address] [facility] [address] [place] [address] Britney Yu MD [address] [facility] [address] [place], [place] [id number] [facility] Start: 10-05-2023 End: 09-28-2024 Basic metabolic 2000 panel - Serum or Plasma Basic Metabolic Panel Lab Routine Hypertensive heart and CKD, 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) CHF (congestive heart failure), NYHA class II, acute on chronic, combined (CMS/HCC) Diabetes mellitus with kidney disease (CMS/HCC) Expected: 10/05/2023 (Approximate), Expires: 09/28/2024 [facility] Work Phone: Comment on above: Expected: 10/05/2023 (Approximate), Expires: 09/28/2024 Start: 09-28-2023 FUV, Provider: Britney Yu, Status: Pen, Time: 10:15 AM FUV, Provider: Britney Yu, Status: Pen, Time: 10:15 AM [facility] 250 DO Work Phone: Start: 07-22-2023 FUV, Provider: Odilia Olsen, Status: Pen, Time: 10:00 AM FUV, Provider: Odilia Olsen, Status: Pen, Time: 10:[address] [facility] 250 DO Work Phone: Start: 07-17-2023 Influenza vaccination Influenza Vacc ine (#1) [facility] Start: 06-26-2023 FUV, Provider: Lashell Osborn, Status: Pen, Time: 10:30 AM FUV, Provider: Lashell Osborn, Status: Pen, Time: 10:[address] [facility] 250 DO Work Phone: Start: 06-22-2023 FUV, Provider: Britney Yu, Status: Pen, Time: 11:00 AM FUV, Provider: Britney Yu, Status: Pen, Time: 11:[address] [facility] 250 DO Work Phone: Start: 06-08-2023 FUV, Provider: Britney Yu, Status: Pen, Time: 11:30 AM FUV, Provider: Britney Yu, Status: Pen, Time: 11:[address] [facility] 250 DO Work Phone: Start: 05-14-2023 FUV, Provider: Britney Yu, Status: Pen, Time: 11:00 AM FUV, Provider: Britney Yu, Status: Pen, Time: 11:00 AM [facility] Work Phone: Start: 04-27-2023 MUGA, Provider: ANGEL RAVI HHVI NUCLEAR 01,[id number], Status: Pen, Time: 2:30 PM MUGA, Provider: MILAGROS HHVI NUCLEAR 01,[id number], Status: Pen, Time: 2:30 PM [facility] 250 DO Work Phone: Start: 02-24-2023 REST ONLY, Provider: MILAGROS LYLEI NUCLEAR 01,[id number], Status: Pen, Time: 12:30 PM REST ONLY, Provider: MIL[place]ROS LYLEI NUCLEAR 01,[id number], Status: Pen, Time: 12:30 PM [facility] 250 DO Work Phone: Start: 02-19-2023 STRESSNUC2, Provider : MILAGROS LYLEI NUCLEAR 01,[id number], Status: Pen, Time: 12:30 PM STRESSNUC2, Provider: MILAGROS LYLEI NUCLEAR 01,[id number], Status: Pen, Time: 12:30 PM [facility] 250 DO Work Phone: Start: 02-21-2022 COVID-19 Vaccine (2 - Pfizer series) COVID-19 Vaccine (2 - Pfizer series) [facility] Start: 2000 Zoster Vaccines (1 of 2) Zoste r Vaccines (1 of 2) [facility] Start: 1972 DTaP/Tdap/Td Vaccine s (1 - Tdap) DTaP/Tdap/Td Vaccines (1 - Tdap) [facility] Start: 1969 Urine screening for protein Diabetes: Urine Protein Screening [facility] Start: 1968 Hepatitis C screening Hepatitis C [facility] Start: 1960 Diabetic foot examination Diabetes: Foot Exam [facility] Start: 1960 Glaucoma screening Diabetes: R etinopathy Screening [facility] Start: 1956 Pneumococcal Vaccine : 65+ Years (1 - PCV) Pneumococcal Vaccine: 65+ Years (1 - PCV) [facility] Start: 1950 Creatinine measurement Creatinine Le campos [facility] Start: 1950 Echocardiography Echocardiogram [facility] Start: 1950 Hemoglobin A1c measurement Rosa betes: Hemoglobin A1C [facility] Start: 1950 Lipid panel Lipid Panel [facility] Start: 1950 Medicare Annual Well ness Visit Medicare Annual Wellness Visit (AWV) [facility] Start: 1950 Potassium measurement Potassium Leve l [facility] Start: 1950 Screening for malign ant neoplasm of colon [facility] Patient Education [facility] Work Phone: Renal function 2000 panel - Serum or Plasma [facility] Payers Date Payer Category Payer Self-pay [id number] 2022 Medicare HUMANA MEDICARE [employer] GOLD CHOICE [id number] 2022-Present [address] [address] [place] [address] [id number] 1959 Medicare [id number] 1950 Unknown [id number] [id number] 1950 Unknown [id number] 2.16.840.1.438113.3.579.2.356 1950 Unknown [id number] 2.16.840.1.426989.3.579.2.356 1950 Unknown [id number] 2.16.840.1.421442.3.579.2.356 1950 Unknown [id number] 2.16.840.1.140314.3.579.2.356 1950 Unknown [id number] 2.16.840.1.706068.3.579.2.1068 1950 Unknown [id number] 2.16.840.1.915289.3.579.2.1068 1950 Unknown [id number] 2.16.840.1.745961.3.579.2.1068 1950 Unknown [id number] 2.16.840.1.890012.3.579.2.718 1950 Unknown [id number] 2.16.840.1.533124.3.579.2.718 1950 Unknown [id number] 2.16.840.1.422822.3.579.2.1244 1950 Unknown [id number] 2.16.840.1.404476.3.579.2.1244 Medicare [id number] 2.16.840.1.839280.19 Medicare [id number] 2. [id number] Medicare Medicare [id number] Unknown [id number] Unknown [id number] 2. [id number] Unknown [employer] GOLD CHOICE Unknown [id number] 2.16840.1.047496.3.579.2.531 Unknown [id number] 2.16840.1.520525.3.579.2.531 Unknown [id number] 2.16840.1.333581.3.579.2.531 Unknown [id number] 2.16840.1.699896.3.579.2.531 Unknown [id number] 2.840.1.737769.3.579.2.531 Unknown [id number] 2.840.1.776173.3.579.2.531 Social History Date Type Detail Facility Start: 09-28-2023 End: 10-15-2023 Sex Assigned At [facility] Other Start: 09-28-2023 End: 10-15-2023 No alcohol use No alcohol use [place] [address] DO Work Phone: Start: 04-10-2021 End: 03-24-2024 Tobacco smoking status NHIS Never smoked tobacco (finding) [facility] Start: 1950 Sex Assigned At Male F [facility] Start: 09-25-2023 Tobacco use and exposure Smokeless tobacco non-user [facility] Work Phone: Start: 09-28-2023 End: 10-15-2023 Alcohol intake Lifetime non-drinker (finding) [facility] Work Phone: Start: 1950 Sex Assigned At Not on file [facility] Work Phone: Start: 09-18-2023 End: 10-15-2023 Exposure to SARS-CoV-2 (event) Not sure [facility] Medical Equipment Procedure Code Equipment Code Equipment [...] hyperglycemia, or diabetes medication issues. 6. Prescriptions: RiverOne[facility] 3 cgm sent. 7. 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 [facility] with [facility] in the past was negative for obstructive CAD. NYHA 2, ACC B.# HTN# DM - Diabetes is managed at the [facility] center. # CKD - BMP 11/05/23 sCr 1.66 BUN 43. 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 # Obesity - Has lost > 30 lbs in the last year which has helped his HTN and BP control.PCP: Dr. Maureen Parham ([facility]), Dr. Gracia Perez (in [place]) Nuclear MPI in 2022 at [facility] - EF 31%. No ischemia or infarct.Echo in 2022 at [facility] - EF 25-30%MUGA done 04/27/23 at [facility] - EF 27%. EKG 03/27/21 - NSR 63 bpm, 1st degree AVB, iLBBB. EKG 11/18/23 in clinic - NSR 67 bpm, 1st degree AVB, IVCD, nonspecific T wave abnormalities. - BP elevated here today. But pt says his BP at home is 120/70s. See regimen changes below.- GDMT: Prior notes from Dr. Yu ([facility]) say he didn't tolerate Entresto due to [...] 1 month with BMP before that visit. [facility] Other 01-29-2024 Evaluation note* Encounter Date Diagnosis Assessment Notes Treatment Notes Treatment Clinical Notes Nov, Type 2 diabetes mellitus with other diabetic kidney complication, without long-term current use of insulin (ICD-10 - E11.29) Nov, Chronic congestive heart failure, unspecified heart failure type (ICD-10 - I50.9) Nov, CKD (chronic kidney disease) stage 2, GFR 60-89 ml/min (ICD-10 - N18.2) [facility] Other 01-04-2024 Evaluation note* Encounter Date Diagnosis [...] verbalized understanding and agreement with treatment plan. [facility] Other 01-03-2024 Evaluation note* Encounter Date Diagnosis [...] 2, ACC B. Had a LHC with [facility] in the past that was negative. 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 # Obesity - Has lost > 30 lbs in the last year which has helped his HTN and BP control.PCP: Dr. Maureen Parham ([facility]), Dr. Gracia Perez (in [place]) Nuclear MPI in 2022 at [facility] - EF 31%.Echo in 2022 at [facility] - EF 25-30%MUGA done 04/27/23 at [facility] - EF 27%. EKG 03/27/21 - NSR 63 bpm, 1st degree AVB, iLBBB. EKG 11/18/23 in clinic - NSR 67 bpm, 1st degree AVB, IVCD, nonspecific T wave abnormalities. -I reviewed his last [address] Britney Yu at [facility].- GDMT: Says that he didn't tolerate Entresto [...] 1 month with BMP before that visit. [facility] Other [facility] History of Present illness Narrative* Britney [...] a diabetic no symptoms of hypoglycemia. 10. [employer] Myoview March 2023-normal perfusion LV appears dilated [...] Problem List Diagnosis Date Noted Nonischemic cardiomyopathy ([facility]) 10/15/2023 Obesity, morbid ([facility]) 09/28/2023 Abnormal EKG 09/25/2023 Cardiomyopathy ([facility]) 09/25/2023 CHF (congestive heart failure), NYHA class II, acute on chronic, combined ([facility]) 09/25/2023 Diabetes mellitus with kidney disease ([facility]) 09/25/2023 First degree atrioventricular block 09/25/2023 Hyperlipidemia [...] months Britney [facility] Work Phone: 1(362) 129-721911-30-2023 Instructions* Patient Instructions* Eric Corcoran MA - [...] Fall Prevention Education Given [facility] Work Phone: 1(800) 603-438211-13-2023 History of Present illness Narrative* Britney Yu [...] Diagnosis Date Noted Abnormal EKG 09/25/2023 Cardiomyopathy ([facility]) 09/25/2023 CHF (congestive heart failure), NYHA class II, acute on chronic, combined ([facility]) 09/25/2023 Diabetes mellitus with kidney disease ([facility]) 09/25/2023 First degree atrioventricular block 09/25/2023 Hyperlipidemia 09/25/2023 Hypertensive heart and CKD, ESRD on dialysis ([facility]) 09/25/2023 Medication course changed 09/25/2023 Obstructive sleep apnea, adult 09/25/2023 Personal history of COVID-19 09/25/2023 Pre-operative cardiovascular examination 09/25/2023 Primary hypertension 09/25/2023 Type 2 diabetes mellitus without complication ([facility]) 09/25/2023 Assessment: Patient does not appear euvolemic Patient has chronic systolic left heart failure functional class II Patient has diabetes without hypoglycemia with kidney disease Test results were reviewed. Recommendations: 1. Continue Entresto if affordable otherwise go back to hydralazine 2. Follow-up as scheduled Follow up : 6 months Britney Yu MD [facility] Work Phone: 1(305) 289-385811-13-2023 Instructions* Patient Instructions* Davis Riggs MA - [...] time of your visit. [facility] Work Phone: 1(885) 879-656411-02-2023 Evaluation note* Encounter Date Diagnosis Assessment Notes Treatment Notes Treatment Clinical Notes Sep, Dietary counseling and surveillance (ICD-10 - Z71.3) see above Sep, Type 2 diabetes mellitus with diabetic chronic kidney disease (ICD-10 - E11.22) 1. Controlled, a Type 2 diabetes with A1c of 6.7% 10/23/23 2. Blood glucose levels according to carmelita [...] or diabetes medication issues. 6. Prescriptions: Drug [place] [facility] [employer]/carmelita 3 cgm sent 09/17/23. Sample carmelita 3 [...] spent on education with Aleah DAVIS, RN. [facility] Other 06-02-2023 Evaluation note* Encounter Date Diagnosis Assessment Notes Treatment Notes Treatment Clinical Notes Apr, Type 2 diabetes mellitus with hyperglycemia, without long-term current use of insulin (ICD-10 - E11.65) Handwrote referral for diabetes and MNT through [facility]. Discussed switching from glipizide to ozempic. He prefers to wait at this time. Apr, Chronic congestive heart failure, unspecified heart failure type (ICD-10 - I50.9) Advised he complete the MUGA and adequately discuss symptoms with his [employer]. He discussed that he does not have chest pain, dyspnea or significant edema. He has researched his EF and echo results. He does not feel that his symptoms are significant enough to proceed w pacer or defibrillator. Followup w Cardiology. Apr, Chronic kidney disease, stage III (moderate) (ICD-10 - N18.30) Reviewed notes and advised he follow Dr. Solis's recommendations. [facility] Other 06-01-2023 Evaluation note* Encounter Date Diagnosis [...] check iron studies B12 and folate level. [facility] Other 04-04-2023 Evaluation note* Encounter Date Diagnosis Assessment Notes Treatment Notes Treatment Clinical Notes Feb, Bronchitis (ICD-10 - J40) Bronchitis suspected due to wheezes, chest tightness, cough and/or impaired air movement. Medication prescribed. Avoid extreme heat and cold as this may exacerbate inflammation of airways. If wheezing, chest tightness and/or SOB occurs, go to ER. [facility] Other 03-22-2023 Evaluation note* Encounter Date Diagnosis [...] do a work-up to rule it out. [facility] Other 02-13-2023 Evaluation note* Encounter Date Diagnosis Assessment Notes Treatment Notes Treatment Clinical Notes Dec, Type 2 diabetes mellitus with other diabetic kidney complication, without long-term current use of insulin (ICD-10 - E11.29) Dec, Neuropathy of left lower extremity (ICD-10 - G57.92) [facility] Other 01-16-2023 Evaluation note* Encounter Date Diagnosis [...] Nov, Precancerous skin lesion (ICD-10 - L98.9) [facility] Other 01-05-2023 Evaluation note* Encounter Date Diagnosis [...] understanding and is agreeable to treatment plan. [facility] Other 10-24-2022 Evaluation note* Encounter Date Diagnosis [...] the ER for worsening symptoms or concerns. [facility] Other 07-10-2022 Evaluation note* Encounter Date Diagnosis Assessment Notes Treatment Notes Treatment Clinical Notes May, [facility] externum of right lower eyelid (ICD-10 - H00.012) [facility] home care material was printed Use the eye ointment as prescribed. Apply warm compresses to your eye 2-3 times a day. Follow-up with your eye doctor if no improvement in 3 to 4 days. [facility] Other 06-15-2022 Evaluation note* Encounter Date Diagnosis [...] pain of right knee (ICD-10 - M25.561) [facility] Other 09-01-2020 History of Present illness Narrative* [...] Patient [facility] no [facility] receiving care from [place] [facility]: Transferred care to [facility] with new patient assessment by Dr. Osborn [...] January, there has been further prolongation of NM interval and mild elongation of QRS duration. [...] 6. Will be a great candidate for Personal Medicine-[employer] Jardiance, will discuss at next visit -[facility]-[place] Caicedo DO Work Phone: 1([phone]) 455-229309-01-2020 History of Present illness Narrative* Patient was [...] Patient is no longer receiving care from [place] [facility]: Transferred care to [facility] with new patient assessment by Dr. Osborn [...] January, there has been further prolongation of NM interval and mild elongation of QRS duration. [...] 6. Will be a great candidate for Personal Medicine-[employer]iance, will discuss at next visit [facility] 250 DO Work Phone: 1([phone]) 593-121203-10-2013 History of Present illness Narrative* 72 yo male here for pre-operative cardiac clearance prior to TKA of R knee. Patient has no complaints today including chest pain, VALENZUELA, presyncope/syncope. He is unable to complete > 4 METS due to knee pain. His ECG with incomplete LBBB. Has not had an ischemic evaluation in a few years. * Initial visit: [facility]. Has a reported hx of CHF 10 years ago but states his EF has since recovered. He endorses weekly exercise (5x per week) with no issues. State's he very active. No chest pain, palpitations, presyncope/syncope, LE edema, PND, orthopnea. Checks his BP daily and states itswell-controlled on his current medications. No complaints today. [facility] [employer] DO Work Phone: [phone] 430-851302-10-2013 History of Present illness Jsaepdwor73 yo male here to establish care. Has a reported hx of CHF 10 years ago but states his EF has since recovered. He endorses weekly exercise (5x per week) with no issues. State's he very active. No chest pain, palpitations, presyncope/syncope, LE edema, PND, orthopnea. Checks his BP daily and statesits well-controlled on his current medications. No complaints today.[facility] [employer] DO Work Phone: Chidr complaint Narrative - ReportedADRIEL GIRALDO is being seen for a consultation for CHF- former [place] [facility] [employer] DO Work Phone: Chicv complaint+Reason for visit Narrative* Chief Complaint I42.8 [...] diabetes mellitus with diabetic chronic kidney disease [facility] Work Phone: Chief complaint+Reason for visit Narrative* Chief Complaint I42.8 [...] Lumbar back pain EVY (obstructive sleep apnea) [facility] Work Phone: Evaluation noteNo InformationNort The Society Other Evaluation noteNo assessment information available [facility] Work Phone: Evaluation note* Diagnosis Personality disorder (CMS/HCC)- Primary Unspecified personality disorder Obesity, morbid ([facility]/HCC) Morbid obesity Hypertensive heart and CKD, ESRD on dialysis ([facility]/HCC) CHF (congestive heart failure), NYHA class II, acute on chronic, combined ([facility]/HCC) Diabetes mellitus with kidney disease ([facility]/HCC) Mixed hyperlipidemia Primary hypertension Unspecified essential hypertension Medication course changed documented in this encounter [facility] Work Phone: Evaluation note* Diagnosis CHF (congestive heart failure), NYHA class II, acute on chronic, combined ([facility]/HCC) Primary hypertension Unspecified essential hypertension Nonischemic cardiomyopathy ([facility]) Other primary cardiomyopathies Medication course changed Hypertensive heart and CKD, ESRD on dialysis ([facility]) Mixed hyperlipidemia Diabetes mellitus with kidney disease ([facility]/HCC) documented in this encounter [facility] Work Phone: Evaluation note* Diagnosis Onset Date Resolution Status Rhinitis, allergic acute Tim hy kid w cr kid I-IV acu te Chronic kidney disease, stage III (moderate) acute Complex renal cyst acute Nephrolithiasis acute Proteinuria acute Thrombocytopenia acute Type 2 diabetes mellitus wit h diabetic chronic kidney disease acute [facility] Work Phone: Evaluation note* Diagnosis Onset Date [...] wit h diabetic chronic kidney disease acute [facility] Work Phone: Evaluation note* Diagnosis Onset [...] wit h diabetic chronic kidney disease acute [facility] Work Phone: Evaluation note* Diagnosis Onset Date [...] wit h diabetic chronic kidney disease acute [facility] Work Phone: Evaluation note* Diagnosis Onset Date [...] wit h diabetic chronic kidney disease acute [facility] Work Phone: Evaluation note* Diagnosis Onset Date [...] pain acute EVY (obstructive sleep apnea) acute [facility] Work Phone: History and physical note Author Rodney Victor [facility] October 21, 2023 11:23am Note Date/Time October 21, 2023 1 1:23am [facility] [address] [place] [address] Gastroenterology H&P Signed Patient: Td Giraldo MR#: [id number] : 1950 Acct:[id number] Age/Sex: 72 / M Adm Date: 3 Loc: Room: Type: [facility] Attending Dr: Rodney Victor MD Copies to: [...] signed by Rodney Victor MD> 10/21/23 1123 [facility] Work Phone: history general Narrative - Reported* Type Description Date Medical History chronic renal failure Medical History hyperkalemia Medical History diabetes mellitus Medical History coronary artery disease Medical History sleep apnea Medical History hypertension Medical History obstructive uropathy Medical History CHF Medical History only has one kidney Medical History hypertension Surgical History left wrist ganglion cyst excisi on, volar [facility] Other Hiskkks general Narrative - Reported* Type Description Date Medical History chronic renal failure Medical History hyperkalemia Medical History diabetes mellitus Medical History coronary artery disease Medical History sleep apnea Medical History hypertension Medical History obstructive uropathy Medical History CHF Medical History only has one kidney Medical History hypertension Surgical History left wrist ganglion cyst excisi on, volar Surgical History b/l cataracts [facility] Other Hismjrz general Narrative - Reported* Type Description Date Medical History chronic renal failure Medical History hyperkalemia Medical History diabetes mellitus Medical History Congestive heart failure Medical History sleep apnea Medical History hypertension Medical History obstructive uropathy Medical History only has one kidney Surgical History left wrist ganglion cyst excisi on, volar Surgical History b/l cataracts [facility] Other history general Narrative - Reported* Type [...] 06/2015 Hospitalization History ABNORMAL LABS/ DIALYSIS 07/2015 [facility] Other history general Narrative - Reported* Type [...] 06/2015 Hospitalization History ABNORMAL LABS/ DIALYSIS 07/2015 [facility] Other History general Narrative - Reported* Type [...] 06/2015 Hospitalization History ABNORMAL LABS/ DIALYSIS 07/2015 [facility] Other Hissssx general Narrative - Reported* Type Description Date [...] 06/2015 Hospitalization History ABNORMAL LABS/ DIALYSIS 07/2015 [facility] Other History of Present illness Narrative* The [...] medication regimen. He denies medication side effects. [facility] Work Phone: History of Present [...] medication regimen. He denies medication side effects. -[facility] [employer] 250 DO Work Phone: History of Present [...] medication regimen. He denies medication side effects. [facility] Work Phone: Hospital Discharge instructions [...] problems. -Follow up with PCP. -Office number [phone].[facility] Work Phone: Reason for referral (narrative)* Consultation (Routine) - Authorized Specialty Diagnoses / Procedures Referred By Contac t Referred To Contact Cardiology Diagnoses CHF (congestive heart failure), NYHA class II, acute on chronic, combined (CMS/HCC) Primary hypertension Procedures Follow Up In Cardiology Britney Yu MD [address] [place], [place] [id number] Britney Yu MD [address] [place] [id number] Referral ID Status Reason Start Date Expiration Date V isits Requested Visits Authorized [id number] Authorized 09/28/2023 09/27/2024 1 1 [facility] Work Phone: Reason for referral (narrative)* Consultation (Routine) - Authorized Specialty Diagnoses / Procedures Referred By Contac t Referred To Contact Cardiology Diagnoses CHF (congestive heart failure), NYHA class II, acute on chronic, combined (CMS/HCC) Primary hypertension Nonischemic cardiomyopathy (CMS/HCC) Procedures Follow Up In Cardiology Britney Yu MD [address] [facility] [address] [place] [address] Britney Yu MD [address] [facility] [address] [place] [address] Referral ID Status Reason Start Date Expiration Date V isits Requested Visits Authorized [id number] Authorized 10/15/2023 10/14/2024 1 1 [facility] Work Phone: [employer] for visit Narrativenutrition referral discussionNokansas [facility] The Society Other Summary Purpose Family History Unknown Family [...] Praful off ice. Previously saw provider at [facility] ortho Diagnosis 1 Recurrent pain of ri ght knee (M25.561) Referral Organization [facility] [place] Referring Provider First Name Jun Referring Provider Last Name Kun Referring Provider Specialty Family [facility] Referred Organization [facility] Referred Provider Ritchie Desai Referred Address ,[place], [place],[address] Referred Provider Specialty Orthopedic S urgery Referral Priority Routine Referral Appointment Date 2022-12-16 General Notes Becca Boykin 11:40:22 AM >received today, notes locked, attachments made, referral faxed P2P Becca Boykin 12/12/2022 09:25:38 AM >faxed first attempt letter Becca Boykin 12/12/2022 01:42:44 PM >received fax back that pt is scheduled with RN FIRST ASSISTANT Becca Gordillo 12/17/2022 08:00:55 AM >faxed first request for consult notes Becca Boykin 2022 12:58:52 PM >faxed second request for notes Becca Boykin 12/26/2022 05:01:54 PM >received notes, sent for review. Reason 12/26/22 [place] office. pt has data on previous echos, etc Diagnosis 1 Left heart failure w ith left ejection fraction greater than 40 percent (I50.1) Referral Organization [facility] Referring Provider First Name Jun Referring Provider Last Name Kun Referring Provider Specialty [email or web address] Referred Organization [facility] enter Referred Provider Lashell Osborn Referred Address [address],[place],[address] Referred Provider Specialty Internal Med icine Referral Priority Routine Referral Appointment Date 2022-12-26 General Notes Becca Boykin 01:12:21 PM >pt was originally referred by Edie Morse and has an appt with [facility] on 12/26/22 Becca Boykin 12/29/2022 05:08:53 PM >faxed first request for consult notes Becca Boykin 12/30/2022 01:56:43 PM >received notes, sent for review. Closing referral at this time. Reason 02/04/23 Pt has re cent labs. copies will also be scanned in Diagnosis 1 CKD (chronic kidney disease) stage 2, GFR 60-89 ml/min (N18.2) Referral Organization [facility] Referring Provider First Name Jun Referring Provider Last Name Kun Referring Provider Specialty [email or web address] Referred Organization [facility] Nephrology Referred Provider Tj Solis Referred Address [address] ,[place],[address] Referred Provider Specialty Nephrology Referral Priority Routine Referral Appointment Date 2023-02-04 General Notes Becca Boykin 12:30:23 PM >received today, sent P2P Becca Boykin 12/05/2022 12:53:06 PM >waitng to see if can schedule since pt, said we are not in his network. TE was sent Becca Boykin 12/05/2022 01:19:03 PM >per [employer] website no auth is required Reason 12/11/22 [place] office preferred - needs nail care and possible toenail removal Diagnosis 1 Diabetic peripheral neuropathy (E11.42) Referral Organization [facility] Referring Provider First Name Jun Referring Provider Last Name Kun Referring Provider Specialty [email or web address] Referred Organization [facility] Referred Provider JAGDEEP GIBSON Referred Address ,[place], [place],[address] Referred Provider Specialty Podiatry - S urgical Chiropody Referral Priority Routine Referral Appointment Date 2022-12-11 General Notes Becca Boykin 11:23:27 AM >received today, faxed referral Becca Boykin 12/05/2022 01:14:47 PM >patient provided appt date Becca Boykin 12/12/2022 01:27:01 PM >faxed first request for consult notes Becca Boykin 12/15/2022 12:08:55 PM >received notes and sent for review. closing referral at this time. Clinical Notes [id number] Reason 12/10/22 yearly sk in exam Diagnosis 1 Precancerous skin le edith (L98.9) Referral Organization [facility] Referring Provider First Name Jun Referring Provider Last Name Kun Referring Provider Specialty Family [facility] Referred Organization Dermatology Kaelyn christine Referred Provider Tigre Russell Referred Address [address] [facility],[place] Referred Provider Specialty Dermatology Referral Priority Routine Referral Appointment Date 2022-12-10 General Notes Becca Boykin 10:49:22 AM >received today, notes locked, attachments made, referral faxed Becca Boykin 12/15/2022 11:00:10 AM >faxed first attempt letter Becca Boykin 12/15/2022 02:09:31 PM >received notes and sent for review Reason CLOSED evaluate Diagnosis 1 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) Referral Organization [facility] Family Medicin e Melbeta Referring Provider First Name Edie Referring Provider Last Name Lito Referring Provider Specialty Nurse Pracmaureen magallanesionevincent Referred Organization [facility] Nephrology Cli manpreet Vargas Referred Provider Tj Solis Referred Address [address],[place],[address] Referred Provider Specialty Nephrology Referral Priority Routine General Notes Becca Boykin 11:14:39 AM >received today Becca Boykin 11/20/2022 11:15:11 AM >waiting for notes to be locked, and [employer] website is currently down to complete PA. will check back Becca Boykin 11/21/2022 09:08:45 AM >[employer] website is still down. will check back Becca Boykin 11/24/2022 09:17:04 AM >availity site still down Becca Boykin 11/25/2022 08:54:58 AM >site up, and no auth is required. attachment made, referral faxed ShayneroopaOz alonzoya 12/05/2022 12:53:06 PM >waitng to see if can schedule since pt, said we are not in his network. TE was sent ShayneroopaOz alonzoya 12/05/2022 01:10:13 PM >pt switched providers, so closing referral Reason CLOSED-changed prima ry providers evaluate Diagnosis 1 Chronic congestive h eart failure, unspecified heart failure type (I50.9) Referral Organization [facility] Family Medicin e Melbeta Referring Provider First Name Edie Referring Provider Last Name Luciaachevincent Referring Provider Specialty Nurse Pract itionevincent Referred Organization [facility] Heart enter Referred Provider Hawa Diallo Referred Address [address] [facility] [address] ,[place], [place],[address] Referred Provider Specialty Cardiac Surg niurka Referral Priority Routine Referral Appointment Date 2022-12-26 General Notes ShayneroopaOz alonzoya 11:08:29 AM >received today, waiting for notes to be locked, and [employer] website is down for Prior Auth. will check back ShaynearashOzya 11/21/2022 09:08:07 AM >[employer] website is still down at this time. Lucretia Becca 11/24/2022 09:16:51 AM >availity site still down Shaynearash Becca 11/25/2022 08:54:58 AM >site up, and no auth is required. attachment made, referral faxed Lucretia Becca 12/02/2022 09:47:35 AM >faxed first attempt letter Shaynearash Becca 12/03/2022 01:52:54 PM >received fax with appt date and time Reason CLOSED- changed [place] jason providers evaluate and treat Diagnosis 1 Other chronic pain ( G89.29) Diagnosis 2 Pain in right knee ( M25.561) Referral Organization [facility] Family Medicin e Melbeta Referring Provider First Name Edie Referring Provider Last Name Luciaacher Referring Provider Specialty Nurse Pract itioner Referred Organization [facility] Ortho pedics Referred Provider Tad Boucher Referred Address [address] [facility] [place],[address] Referred Provider Specialty Orthopedic S urgery Referral Priority Routine General Notes Becca Boykin 11:16:24 AM >received today, waiting for notes to be locked, and [employer] website is currently down at the moment. will folllow up Becca Boykin 11/21/2022 09:09:03 AM >[employer] website is still currently down. will check back Becca Boykin 11/24/2022 09:17:20 AM >[employer] site is still down Becca Boykin 11/25/2022 [...] dilated LVEF 31%. * I reviewed prior [facility] note dated August 25, 2022. * [...] Patient is no longer receiving care from [place] [facility]: Transferred care to [facility] with new patient assessment by Dr. Osborn [...] reports that usually calibrated yearly by the [place] [facility],will no longer be seen in the [...] dilated LVEF 31%. * I reviewed prior [facility] note dated August 25, 2022. * [...] Patient is no longer receiving care from [facility]: Transferred care to [facility] with new patient assessment by Dr. Osborn [...] reports that usually calibrated yearly by the [place] [facility],will no longer be seen in the [facility] and referred to the sleep clinic [...] section and content) DATE CREATED AUTHOR 05/12/2018 [facility] DATE CREATED AUTHOR AUTHOR'S ORGANIZ ATION 11/16/2020 [facility] DATE CREATED AUTHOR AUTHOR'S ORGANIZ ATION 01/08/2023 [facility] dical Specialist DATE CREATED AUTHOR AUTHOR'S ORGANIZ ATION 04/26/2023 [facility] DATE CREATED AUTHOR AUTHOR'S ORGANIZ ATION 05/15/2023 [facility] ical Center DATE CREATED AUTHOR AUTHOR'S ORGANIZ ATION 05/15/2023 [employer] DATE CREATED AUTHOR AUTHOR'S ORGANIZ ATION 05/23/2023 [facility] DATE CREATED AUTHOR AUTHOR'S ORGANIZ ATION 08/21/2023 [facility] DATE CREATED AUTHOR AUTHOR'S ORGANIZ ATION 03/15/2024 [facility] DATE CREATED AUTHOR AUTHOR'S ORGANIZ ATION 04/21/2024 [facility] (unrecognized sect ion and content) No Status Records FoundNo Status Records FoundNo Status Records FoundNo Status Records FoundNo Status Records FoundNo Status Records FoundNo Status Records FoundNo Status Records FoundNo Status Records Found REASON FOR VISIT (unrecogniz ed section and content) Reason Comments Follow-up 4 month Reason Comments Follow-up 2w Specialty Diagnoses / Procedures Referred By Contedmundo t Referred To Contact Cardiology Diagnoses CHF (congestive heart failure), NYHA class II, acute on chronic, combined (CMS/HCC) Primary hypertension Procedures Follow Up In Cardiology Britney Yu MD [address] [facility] [address] [place] [address] Britney Yu MD [address] [facility] [address] [place] [address] Referral ID Status Reason Start Date Expiration Date V isits Requested Visits Authorized [id number] Authorized 09/28/2023 09/27/2024 1 1 Care Teams [...] Active Tj Solis MD Attending Provider Active Black Studies Professor Relationship Specialty Start Date End Date Jun Perez MD [address] [place] [address] PCP - General 12/26/22 Black Studies Professor Relationship Specialty Start Date End Date Jun [...] 2023 End: December 22, 2023 Duncan Parham APRN Attending [...] Team Status: Active Member Role Status Tomasa Yu MD 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 [facility] [employer] [facility]. provides no warranty or guarantee of the accuracy or completeness of information in this document.
== END 2024-06-07 19:30 | disposition home or self-care (01) ==
LOC: SLEEP 19:46
PROVIDERS: PCP Family Medicine; Visit Provider Family Medicine
DX: G47.33 Obstructive sleep apnea (adult) (pediatric) (principal)
CPT/HCPCS: 95811

== ENCOUNTER 2024-06-29 11:51 | Outpatient (OUT) | payer MEDICARE, SELFPAY ==
[2024-06-29 13:41] LABS: Protein Creatinine Ratio Urine 0.41; Total Protein Urine Random 36.2 mg/dL (<=11.9)
[2024-06-29 13:47] LABS: Albumin Level 3.7 g/dL (3.4-5.0); Anion Gap 14.2; BUN Creatinine Ratio 15.7; Calcium 8.9 mg/dL (8.5-10.1); Carbon Dioxide 24.1 mmol/L (21.0-32.0); Chloride 104 mmol/L (98-107); Estimated GFR (African America 50 (>=60); Estimated GFR (Non-African Ame 41 (>=60); Glucose 203 mg/dL (74-106); Magnesium 2.1 mg/dL (1.8-2.4); Phosphorus 3.4 mg/dL (2.6-4.7); Potassium 4.3 mmol/L (3.5-5.1); Sodium 138 mmol/L (136-145)
[2024-06-29 13:57] LABS: Bilirubin Urine NEGATIVE (NEGATIVE); Blood Urine NEGATIVE (NEGATIVE); Clarity Urine CLEAR (CLEAR); Color Urine YELLOW (YELLOW); Glucose Urine UA >=1000 mg/dL (NEGATIVE); Ketones Urine NEGATIVE (NEGATIVE); Leukocyte Esterase Urine NEGATIVE (NEGATIVE); Nitrite Urine NEGATIVE (NEGATIVE); Protein Urine 30 mg/dL (NEG/TRACE); Urobilinogen Urine 0.2 EU/dL (0.2-1.0); pH Urine 5.5 (5.0-9.0)
[2024-06-29 14:06] LABS: Hematocrit 45.8 % (42.0-54.0); Hemoglobin 14.6 g/dL (14.0-18.0); Mean Corpuscular HGB Conc 31.9 g/dL (29.9-35.2); Mean Corpuscular Hemoglobin 27.4 pg (25.9-34.0); Mean Corpuscular Volume 86.1 fL (80.0-94.0); Mean Platelet Volume 10.6 fL (9.5-13.5); Platelet Count 157 10^3/uL (150-450); Red Blood Count 5.32 10^6/uL (4.70-6.10); Red Cell Distribution Width 14.6 % (11.0-15.0); White Blood Count 5.3 10^3/uL (4.0-11.0)
[2024-06-29 14:57] LABS: Bacteria Urine TRACE #/HPF (NONE SEEN); Cast Seen? NONE SEEN #/LPF (NONE SEEN); Crystals Seen? None Seen #/HPF (None Seen); Mucus Urine NONE SEEN (NONE SEEN); RBC Urine NONE SEEN #/HPF (0-2); Squamous Epithelial Cell Urine RARE #/LPF (NONE/RARE); Urine Culture Indicated NO; WBC Urine NONE SEEN #/HPF (NONE SEEN)
[2024-06-30 12:09] LABS: PTH, Intact 67 pg/mL (15-65)
== END 2024-06-29 11:52 | disposition home or self-care (01) ==
PROVIDERS: PCP Family Medicine; Visit Provider Internal Medicine
DX: I12.9 Hypertensive chronic kidney disease with stage 1 through stage 4 chronic kidney disease, or unspecified chronic kidney disease (principal); N18.30 Chronic kidney disease, stage 3 unspecified; N20.0 Calculus of kidney; E11.22 Type 2 diabetes mellitus with diabetic chronic kidney disease
CPT/HCPCS: 36415; 80069; 81001; 82306; 82570; 83735; 83970; 84156; 84550; 85027

== ENCOUNTER 2024-09-28 08:42 | Outpatient (OUT) | payer MEDICARE, SELFPAY ==
--- OUTSIDE RECORDS SUMMARY | 2024-09-28 08:57 | XMS_ITS | CCD ---
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 Malika Calle Primary Care Robb Osborn, Dr. Jerez Attending Unavailable Anurag, Dr. Jerez Referring Unavailable Kun, Dr. Jun Patel Primary Care Unav ailable Anurag, Dr. Jerez Attending Unavailable Anurag, Dr. Jerez Referring Unavailable Kun, Dr. Jun Patel Primary Care Odilia Sotelo Attending Unavailable Odilia Mackenzie Referring Unavailable Kun, Dr. Jun Patel Primary Care Unaruthy ailMD BRITNEY Duarte Attending Unavailable MD BRITNEY YU Referring Unavailable Odilia Mackenzie Attending Unavailable Kun, Dr. Jun Patel Primary Care Unaruthy ailronaldo Osborn, Dr. Jerez Attending Unavailable Kun, Dr. Jun Patel Primary Care Unaruthy Osborn, Dr. Jerez Attending Unavailable Kun, Dr. Jun Patel Primary Care Unav Ritchie Vance Admitting Unavail able CAROLEE GONZALEZ Primary Care Unavailable Ritchie Desai Attending Unavail able CAROLEE GONZALEZ Primary Care Unavailable Ritchie Desai Attending Unavail able Ritchie Desai Admitting Unavail able Rodney Victor Unavailable Mapus, Tondra Unavailable MD Jun Perez Primary Care Provider Mapus, JAVA LEAD ARCHITECT Tondra K Attending Provider MD Tj Solis Attending Provider Kun JARA, Jun Patel Primary Care Provider Jun Perez MD Primary Care Provider Unavailable MD Jun Perez Primary Care Provider Mapus, JAVA LEAD ARCHITECT Tondra K Attending Provider MD Tj Solis Attending Provider MD Rodney Victor Attending Provider MD Britney Yu Attending Provider Jose Yu Unavailable MD Jun Perez Primary Care Provider Mapus, JAVA LEAD ARCHITECT Tondra K Attending Provider [phone] MD Jun Perez Primary Care Provider Mapus, JAVA LEAD ARCHITECT Tondra K Attending Provider MD Jose Yu Attending Provider MD Jun Perez Primary Care Provider Mayo Tj Attending Unavailable Jun Perez Primary Care Unavailable Mayo Tj Admitting Unavailable Jun Perez Primary Care Unavailable Britney Yu Admitting Unavailable Britney Yu Attending Unavailable Britney Yu Admitting Unavailable Britney Yu Attending Unavailable Jun Perez Primary Care Unavailable Jose Yu Admitting Unavai Jose Sinclair Attending Unavai lable Jun Perez Primary Care Unavailable Jun Perez Primary Care Unavailable Mapus, Tondra K Admitting Unavailable Mapus, Tondra K Attending Unavailable Jun Perez Primary Care Unavailable Rodney Victor Admitting Unavailable Rodney Victor Attending Unavailable SB OSORIO Attending Unavailable BRITNEY YU Attending Unavailable JUN PEREZ Primary Care Unavailable BRITNEY YU Attending Unavailable BRITNEY YU Referring Unavailable JUN PEREZ Primary Care Unavailable Jnu Perez MD Primary Care Provider [phone] Allergies Allergy Classification Reported Allergen(s) Allergy Type Date of Onset Reaction(s) Facility (20 sources) Contrast media Propensity to adverse reactions Unknown [facility] Other (8 sources) Contrast media Allergy to substance (finding) Shortness of breath [facility] [employer] 250 DO Work Phone: (6 sources) Angiotensin Converting Enzyme (Elisa) Inhibitors; Translations: [ELISA Inhibitors] Allergy to drug (finding) [facility] [employer] 250 DO Work Phone: (1 source) Contrast media; Translations: [Contrast Dye] Propensity to adverse reactions to drug (disorder) [facility] (16 sources) Gadolinium-Cont aining Contrast Medi; Translations: [Gadolinium-Con taining Contrast Medi] Allergy to substance 1 Anaphylaxis [facility] (20 sources) Iodinated Contrast Media; Translations: [Iodinated Contrast Media] Allergy to substance 1 Shortness of breath, Anaphylaxis [facility] Medications Current Medications Medication Drug Class(es) Dates Sig (Normalized) Sig (Original) 0.25 MG, 0.5 MG Dose 3 ML semaglutide 0.68 MG/ML Pen Injector [Ozempic] (3 sources) Start: 09-17-2023 inject 0.5 mg by subcutaneous injection every week Ozempic (0.25 or 0.5 MG/DOSE) 2 MG/3ML 0.5mg Subcutaneous once weekly Sep, Active ascorbic acid 250 mg oral tablet (3 sources) Vitamin C take 1 tablet by mouth in the morning ascorbic acid (Vitamin C) 250 MG tablet Take 250 mg by mouth in the morning. Active aspirin 81 mg chewable tablet (20 sources) Platelet Aggregation Inhibitor, Nonsteroidal Anti-inflammatory Drug ASPIRIN 81 MG chewable tablet 1 (one) time each day at the same time. Active take 1 tablet by tanvi th every twenty-four hours Aspirin 81 MG 1 tablet Orally Once a day Active atorvastatin 10 mg oral tablet (20 sources) HMG-CoA Reductase Inhibitor Start: 10-21-2023 take 5 mg by mouth at bedtime Atorvastatin Active 5 MG PO Bedtime October 21, 2023 1:00am atorvastatin (Li pitor) 10 MG tablet 1 (one) time each day at the same time. Active take 0.5 tablet by mouth once da kimberlee Atorvastatin Calcium 10 MG 1/2 tab Orally Once a day Active azithromycin 250 mg oral tablet (3 [...] Blood-Glucose Meter (Accu-Ch ek Guide Glucose Meter) [facility] (6 sources) Start: 04-18-2024 Blood-Glucose Meter (Accu-Chek Guide Glucose Meter) [facility] Active 0 .Route 1 April 18, 2024 9:37am As directed Use with Accu Chek Guide test strips to check blood glucose Start: 04-18-2024 End: 04-18-2024 Blood-Glucose Meter (Accu-Ch ek Guide Glucose Meter) [facility] Discontinued 0 .Route April 18, 2024 12:00am [...] : 08-Jun-2023 Active take with 6.25mg bid carvedilol (Core g) 12.5 MG tablet every 8 (eight) hours. Active take 1 tablet by tanvi th [...] 2023 1:00am take 1 capsule by mouth in the m orning cholecalciferol (Vitamin D-3) 50 MCG (2000 UT) capsule Take 2,000 Units by mouth in the morning and 2,000 Units in the evening. Active take 1 capsule by mo uth every [...] 14 days for 14 days Sep, Active furosemide 40 mg oral tablet (20 sources) Loop Diuretic furosemide (Lasi x) 40 MG tablet if needed. Active End: 09-28-2023 take 0.5 mg by mouth once daily furosemide (Lasix) 20 mg tablet Take 0.5 mg by mouth once daily. 0 09/28/2023 Discontinued (Therapy completed) Lasix 20 MG 1/2 tablet Orally Once a day PRN ONLY patient states he takes 30mg PRN Active glipiZIDE 5 mg oral tablet (20 sources) Sulfonylurea Start: 05-25-2024 Glipizide Acti ve 0 .ROUTE .COMPLEX 180 May 25, 2024 8:25am TAKE 1 TABLET TWICE DAILY Start: 01-05-2024 End: 05-25-2024 take 1 tablet by mouth twice daily 30 minutes before breakfast Glipizide Discontinued 5 MG PO Twice daily January 05, 2024 1:00am May 25, 2024 8:25am FreeTextSi tablet 30 minutes before breakfast Orally twice a day; Note: Source Status: Taking; Provider: Aimee Garcia ( ) End: 09-28-2023 take 1 tablet by mouth [...] Status: Taking; Provider: Aimee Garcia ( ) Start: 03-12-2023 hydrALAZINE (A presoline) 25 MG tablet 03/12/2023 Active End: 09-28-2023 take 1.5 tablets by mouth three times daily hydrALAZINE HCl 25 MG 1.5 tabs Orally Three times a day Active take [...] day Active lisinopril 2.5 mg oral tablet (13 sources) Angiotensin Converting Enzyme Inhibitor Start: 3 End: 3 lisinopril 2.5 MG tablet 04/17/2023 Active losartan potassium 50 mg oral tablet (20 sources) Angiotensin 2 Receptor Michelle Start: 4 Losartan Active 0 .ROUTE .COMPLEX 90 May 24, 2024 11:50am TAKE 1 TABLET ONE TIME DAILY (STOP LISINOPRIL) Start: 01-11-2024 End: 05-24-2024 take 1 tablet by mouth once daily Losartan Discontinued 50 MG PO Daily January 11, 2024 12:41pm May 24, 2024 11:50am FreeTextSi tablet Orally Once a day; Note: [...] Multivitamin preparation (3 sources) Multivitamin Act fabien Nystatin (1 source) Polyene Antifungal Start: take 1 mL by mouth three times daily Nystatin Active 5 ML PO Three times daily 60 August 08, 2024 12:00am swish and spit saw palmetto (Serenoa repens) 1000 MG capsule (3 sources) saw palmetto (Serenoa repens) 1000 MG capsule 1 capsule. Active Saw Greenleaf 1000 MG (18 sources) take 1000 mg by mouth twice daily Saw Greenleaf 1000 MG as directed Orally BID Active Saw Greenleaf 450 MG (6 sources) take 450 mg by mouth three times daily Saw Greenleaf 450 MG as directed Orally three times a day Active Saw Greenleaf (14 sources) Start: take 450 mg by mouth three times daily at mealtime Saw Greenleaf Active 450 MG PO Three times daily October 21, 2023 1:00am give with food (meal/snack) Start: 10-21-2023 take 450 mg by mouth three times daily at mealtime Saw Greenleaf Active 450 MG PO Three times daily [...] a day for 10 day(s) Feb, Active gabapentin 100 mg oral capsule (20 sources) Anti-epileptic Agent Start: 10-21-2023 End: 07-04-2024 take 100 mg by mouth three times daily Gabapentin Discontinued 100 MG PO Three times daily October 21, 2023 1:00am July 04, 2024 11:04am take 1 capsule by mo ut every eight hours gabapentin (Neurontin) 100 MG capsule 1 capsule every 8 (eight) hours. Active take 1 capsule by mouth once sebastian ly Gabapentin 100 MG 1 capsule Orally 3x daily for 90 days Active take 1 capsule by mo uth three times daily gabapentin (Neurontin) 100 mg capsule Ta ke 1 capsule (100 mg) by mouth 3 times a day. 0 Active linaclotide 0.072 mg oral capsule (3 sources) Guanylate Cyclase-C Agonist Start: 04-13-2024 End: 07-04-2024 take 1 capsule by mouth once daily Linaclotide (Linzess) 72 mcg capsule Discontinued 72 MCG PO Daily April 13, 2024 12:00am July 04, 2024 11:04am meclizine hydrochloride 25 mg oral tablet (3 sources) Antiemetic Start: 04-27-2024 End: 07-04-2024 take 25 mg by mouth twice daily Meclizine Discontinued 25 MG PO Twice daily April 27, 2024 12:00am July 04, 2024 11:04am meloxicam 7.5 mg oral tablet (5 sources) Nonsteroidal Anti-inflammatory Drug Start: 04-13-2024 End: 04-27-2024 take 7.5 mg by mouth once daily Meloxicam Discontinued 7.5 MG PO Daily April 13, 2024 12:00am April 27, 2024 12:04pm methylPREDNISolone 125 mg injection (12 sources) Corticosteroid Start: 01-01-2024 End: 01-01-2024 inject [...] Hypertensive heart and CKD, ESRD on dialysis ([facility]) , CHF (congestive heart failure), NYHA class II, acute on chronic, combined ([facility]) , Primary hypertension Take 1 tablet by [...] tablet Orally Twice a day Not-Taking/PRN Saw Greenleaf 1000 MG Oral Capsule (8 sources) Saw Greenleaf 100 0 MG Oral Capsule TAKE DIRECTED. Quantity: 0 Refills: 0 Ordered: 26-Dec-2022 DO Active triamcinolone acetonide 40 mg/ml injectable suspension (20 sources) Corticosteroid Start: 04-30-2022 Kenalog-40 Apr, 20 mg Start: 04-30-2022 Kenalog-40 Apr, 40 mg Start: 07-29-2021 Kenalog -40 mg Jul, 40 mg Problems Active Problems Problem Classification Problem Date Documented Date Episodic/Chronic Administrative/social admission (10 sources) Dietary counseling and surveillance; Translations: [Patient encounter status] Episodic Calculus of urinary tract (20 sources) Kidney stone; Translations: [Calculus of kidney] Onset: 3 Episodic Chronic kidney disease (20 sources) Chronic kidney disease stage 2; Translations: [Chronic kidney disease, stage 2 (mild)] Onset: 5 Chronic Chronic kidney disease (14 sources) Chronic kidney disease; Translations: [Chronic kidney disease, stage III (moderate)] Onset: 3 Chronic obstructive pulmonary disease and bronchiectasis (1 source) Bronchitis, not specified as acute or chronic Episodic Coagulation and hemorrhagic disorders (18 sources) Thrombocytopenic disorder; Translations: [Thrombocytopenia, unspecified] 01-05-2024 Chronic Conditions associated with dizziness or vertigo (3 sources) Benign paroxysmal positional vertigo; Translations: [Benign paroxysmal vertigo, unspecified ear] 05-09-2024 Episodic Conduction disorders (5 sources) First degree atrioventricular block; Translations: [First degree atrioventricular block] Onset: 3 09-25-2023 Chronic Congestive heart failure; nonhypertensive (20 sources) Congestive heart failure stage C; Translations: [Congestive heart failure, unspecified] Onset: 5 Chronic Congestive heart failure; nonhypertensive (1 source) Congestive heart failure; nonhypertensive; Translations: [Acute on chronic combined systolic (congestive) and diastolic (congestive) heart failure] Onset: 3 Deficiency and other anemia (14 sources) Anemia of renal disease; Translations: [Anemia in chronic kidney disease] Chronic Deficiency and other anemia (1 source) Anemia in chronic kidney disease Chronic Deficiency and other anemia (20 sources) Iron deficiency anemia; Translations: [Iron deficiency anemia, unspecified] 01-04-2024 Episodic Diabetes mellitus with complications (20 sources) Diabetic peripheral neuropathy; Translations: [Type 2 diabetes mellitus with diabetic polyneuropathy] Onset: 3 Chronic Diabetes mellitus without complication (20 sources) Type 2 diabetes mellitus without complication; [...] Essential hypertension; Translations: [Unspecified essential hypertension] Onset: 5 Chronic Genitourinary congenital anomalies (20 sources) Renal agenesis and dysgenesis; 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, unilateral] Onset: 3 Chronic Genitourinary symptoms and ill-defined conditions (20 sources) Proteinuria, unspecified; Translations: [Proteinuria] Onset: 3 [...] exposure to other viral communicable diseases] Episodic Joint disorders and dislocations; trauma-related (3 sources) Derangement of right knee; Translations: [Unspecified internal derangement of right knee] Onset: 3 04-29-2023 Chronic Nephritis; nephrosis; renal sclerosis (3 sources) Atrophy of right kidney; Translations: [Atrophy of kidney (terminal)] Onset: 5 04-30-2023 Chronic Osteoarthritis (20 sources) Osteoarthritis of right knee joint; Translations: [Unilateral primary osteoarthritis, right knee] Onset: 2 Resolved: 2 Chronic Other aftercare (5 sources) Treatment changed; Translations: [Long-term (current) use of other medications] Onset: 3 09-28-2023 Episodic Other aftercare (11 sources) Long-term current use of insulin; Translations: [USP (current) use of insulin] Episodic Other bone disease and musculoskeletal deformities (1 source) Disorder of bone, unspecified; Translations: [Disorder of bone, unspecified] Onset: 3 Episodic Other diseases of kidney and ureters (2 sources) Secondary hyperparathyroidism; Translations: [Secondary hyperparathyroidism of renal origin] 07-04-2024 Chronic Other diseases of kidney and ureters (1 source) Secondary hyperparathyroidism of renal origin; Translations: [Secondary hyperparathyroidism (of renal origin)] 07-04-2024 Chronic Other diseases of kidney and ureters (10 sources) Cyst of kidney, acquired; Translations: [Cystic kidney disease, unspecified] Onset: 3 Episodic Other diseases of kidney and ureters (10 sources) Complex renal cyst; Translations: [Cyst of kidney, acquired] 01-04-2024 Episodic Other ear and sense organ disorders (2 sources) Impacted cerumen; Translations: [Impacted cerumen, bilateral] 05-09-2024 Episodic Other ear and sense organ disorders (1 source) Impacted cerumen, bilateral; Translations: [Impacted cerumen] 04-27-2024 Episodic Other gastrointestinal disorders (3 sources) Irritable bowel syndrome characterized by constipation; Translations: [Irritable bowel syndrome with constipation] 04-13-2024 Chronic Other gastrointestinal disorders (2 sources) Irritable bowel syndrome with constipation; Translations: [Irritable bowel syndrome] 04-12-2024 Chronic Other infections; including parasitic (5 sources) Personal history of other infectious and parasitic diseases; Translations: [Personal history of COVID-19] Onset: 3 09-25-2023 Episodic Other lower respiratory disease (2 sources) Snoring; Translations: [Snoring] 08-17-2024 Episodic Other nervous system disorders (20 sources) [...] nutritional; endocrine; and metabolic disorders (4 sources) Body mass index 30+ - obesity; Translations: [Body mass index (BMI) 36.0-36.9, adult] 03-24-2024 Chronic Other nutritional; endocrine; and metabolic disorders (2 sources) Morbid (severe) obesity due to excess calories; Translations: [Morbid (severe) obesity due to excess calories (CMS/HCC)] Onset: 3 Chronic Other nutritional; endocrine; and metabolic disorders (2 sources) Obesity caused by energy imbalance; Translations: [Class 2 obesity due to excess calories with body mass index (BMI) of 36.0 to 36.9 in adult, unspecified whether serious comorbidity present] 08-17-2024 Chronic Other nutritional; endocrine; and metabolic disorders (3 sources) Obese class I; Translations: [Obesity (BMI 30.0-34.9)] Onset: 5 04-30-2023 Chronic Other nutritional; endocrine; and metabolic disorders [...] tissue, unspecified Episodic Other upper respiratory disease (10 sources) Allergic rhinitis; Translations: [Allergic rhinitis, unspecified] [...] 09-25-2023 Chronic Residual codes; unclassified (5 sources) Obstructive sleep apnea syndrome; Translations: [Obstructive sleep apnea (adult) (pediatric)] 04-13-2024 Chronic Residual codes; unclassified (2 sources) Obstructive sleep apnea (adult) (pediatric); Translations: [Obstructive sleep apnea (adult)(pediatric)] 04-12-2024 Chronic Residual codes; unclassified (2 sources) Hypersomnia; Translations: [Hypersomnia, unspecified] 08-17-2024 Chronic Residual codes; unclassified (15 sources) Transient alteration of awareness; Translations: [Transient alteration of awareness] 04-10-2021 Episodic Residual codes; unclassified (3 sources) Lack of awareness; Translations: [Unspecified symptoms and signs involving cognitive functions and awareness] Onset: 4 08-14-2024 Episodic Skin and subcutaneous tissue infections (1 source) Cellulitis of unspecified toe Episodic Spondylosis; intervertebral disc disorders; other back problems (20 sources) Chronic low back pain; Translations: [Lumbago with sciatica, left side] Episodic Transient cerebral ischemia (3 sources) Transient global amnesia; 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] Onset: 4 08-14-2024 Chronic Unclassified (1 source) Unknown / UNK(Unknown) Onset: [...] 05-25-2022 Episodic Other aftercare (2 sources) Other skilled nursing (current) drug therapy; Translations: [Other terminal carman (current) drug therapy] Onset: 09-25-2023 Episodic Other [...] Test Name Value Interpretation Reference Range Facility Erythrocyte distribution wid th Auto (RBC) [Ratio]on 06-29-2024 Erythrocyte distribution width (RBC) [Ratio] 14.6 % 11.0-15.0 [facility] Estimated glomerular filtrat ion rate (GFR) non- Americanon 06-29-2024 GFR/1.73 sq M.predicted among non-blacks MDRD (S/P/Bld) [Vol rate/Area] 41 mL/min/{1.73_m2} Low >=60 [facility] Hematocrit Auto (Bld) [Volum e fraction]on 06-29-2024 Hematocrit (Bld) [Volume fraction] 45.8 % 42.0-54.0 [facility] Hemoglobin [Mass/volume] in Bloodon 06-29-2024 Hemoglobin (Bld) [Mass/Vol] 14.6 g/dL 14.0-18.0 [facility] Laboratory - Chemistry and C hemistry - challengeon 06-29-2024 Albumin [Mass/Vol] 3.7 g/dL 3.4-5.0 [facility] Calcium [Mass/Vol] 8.9 mg/dL 8.5-10.1 [facility] Chloride [Moles/Vol] 104 mmol/L 98-107 [facility] CO2 [Moles/Vol] 24.1 mmol/L 21.0-32.0 [facility] Creatinine [Mass/Vol] 1.66 mg/dL High 0.70-1.30 [facility] GFR/1.73 sq M.predicted MDRD (S/P/Bld) [Vol rate/Area] 50 mL/min/{1.73_m2} Low >=60 [facility] Glucose [Mass/Vol] 203 mg/dL High 74-106 [facility] Magnesium [Mass/Vol] 2.1 mg/dL 1.8-2.4 [facility] Potassium [Moles/Vol] 4.3 mmol/L 3.5-5.1 [facility] Sodium [Moles/Vol] 138 mmol/L 136-145 [facility] Urate [Mass/Vol] 7.0 mg/dL 3.5-7.2 [facility] Urea nitrogen [Mass/Vol] 26.0 mg/dL High 7.0-18.0 [facility] Urea nitrogen/Creatinine [Mass ratio] 15.7 mg/mg [facility] Bilirubin Ql (U) Negative NEGATIVE [facility] Glucose (U) [Mass/Vol] mg/dL Abnormal NEGATIVE [facility] Ketones Ql (U) Negative NEGATIVE [facility] pH (U) 5.5 [pH] 5.0-9.0 [facility] Specific gravity (U) [Rel density] 1.020 1.005-1.025 [facility] Urobilinogen Qn (U) 0.2 {Dolores'U}/dL 0.2-1.0 [facility] Laboratory - Specimen inform ationon 06-29-2024 Appearance (U) CLEAR CLEAR [facility] Color (U) YELLOW YELLOW [facility] Laboratory - Urinalysison Leukocyte esterase Test strip Ql (U) Negative NEGATIVE [facility] Mucus Ql (Urine sed) NONE SEEN NONE SEEN [facility] Nitrite Ql (U) Negative NEGATIVE [facility] Protein (U) [Mass/Vol] 36.2 mg/dL High <=11.9 [facility] Protein Ql (U) 30 mg/dL Abnormal NEG/TRACE [facility] Leukocytes [#/volume] correc ritu for nucleated erythrocytes in Blood by Automated counon 06-29-2024 WBC corrected for nucl RBC Auto (Bld) [#/Vol] 5.3 10 3/uL 4.0-11.0 [facility] MCH Auto (RBC) [Entitic mass ]on 06-29-2024 MCH (RBC) [Entitic mass] 27.4 pg 25.9-34.0 [facility] MCHC Auto (RBC) [Mass/Vol]on 06-29-2024 MCHC (RBC) [Mass/Vol] 31.9 g/dL 29.9-35.2 [facility] MCV Auto (RBC) [Entitic vol] on 06-29-2024 MCV (RBC) [Entitic vol] 86.1 fL 80.0-94.0 F [facility] No Panel Informationon 06-29 25-Hydroxy Vitamin D Total 60.0 ng/mL [facility] Comment on above: <20 ng/mL Vit D defi cient20-<30 ng/mL Vit D [id number] ng/mL Vit D sufficient>100 ng/mL Potential Toxicity Parathyroid Hormone (Intact) 67 pg/mL Abnormal 15-65 [facility] Comment on above: Performed at: - [facility] [address] [id number] Director: Robin Mead PhD, Phone: [phone] Phosphorus Level 3.4 mg/dL 2.6-4.7 [facility] Urine Bacteria TRACE #/HPF Abnormal NONE SEEN [facility] Urine Culture Reflexed NO [facility] Urine Occult Blood Negative NEGATIVE [facility] Urine Other Casts NONE SEEN #/LPF NONE SEEN [facility] Urine Other Crystals None Seen #/HPF None Seen [facility] Urine Random Creatinine 87.30 mg/dL 20.00-300.0 0 [facility] Urine RBC NONE SEEN #/HPF 0-2 [facility] Urine Squamous Epithelial Cells RARE #/LPF NONE/RARE [facility] Urine WBC NONE SEEN #/HPF NONE SEEN [facility] Platelet mean volume Auto (B ld) [Entitic vol]on 06-29-2024 Platelet mean volume (Bld) [Entitic vol] 10.6 fL 9.5-13.5 [facility] Platelets Auto (Bld) [#/Vol] on 06-29-2024 Platelets (Bld) [#/Vol] 157 10 3/uL 150-450 [facility] RBC Auto (Bld) [#/Vol]on RBC (Bld) [#/Vol] 5.32 10 6/uL 4.70-6.10 [facility] Serum or plasma anion gap de terminationon 06-29-2024 Anion gap [Moles/Vol] 14.2 mmol/L [facility] Urine protein/creatinine rat ioon 06-29-2024 Protein/Creatinine (U) [Ratio] 0.41 [facility] HbA1c HPLC (Bld) [Mass fract ion]on 03-24-2024 HbA1c (d) [Mass fraction] 6.6 % [facility] No Panel Informationon 03-24 Bedside Glucose 110 [facility] ECH echo transthoracicon ECH echo transthoracic [facility] [place] [address] Echocardiogram Signed Patient: Td Giraldo MR#: [id number] : 1950 Acct:[id number] Age/Sex: 73 / M ADM Date: 03/07/24 Loc: Room: Type: [facility] Attending Dr: Jose Yu MD Ordering [...] : : 8:36 PM : Transcribed By: JAMAL Performed At: 03/07/24 0949 Signed By: Jose Yu MD 03/07/242036 Normal [facility] Estimated glomerular filtrat ion rate (GFR) non- Americanon 01-08-2024 GFR/1.73 sq M.predicted among non-blacks MDRD (S/P/Bld) [Vol rate/Area] 41 mL/min/{1.73_m2} >=60 [facility] Laboratory - Chemistry and C hemistry - challengeon 01-08-2024 Calcium [Mass/Vol] 8.7 mg/dL 8.5-10.1 [facility] Chloride [Moles/Vol] 105 mmol/L 98-107 [facility] CO2 [Moles/Vol] 29.2 mmol/L 21.0-32.0 [facility] Creatinine [Mass/Vol] 1.67 mg/dL 0.70-1.30 [facility] GFR/1.73 sq M.predicted MDRD (S/P/Bld) [Vol rate/Area] 49 mL/min/{1.73_m2} >=60 [facility] Glucose [Mass/Vol] 161 mg/dL 74-106 [facility] Potassium [Moles/Vol] 5.0 mmol/L 3.5-5.1 [facility] Sodium [Moles/Vol] 141 mmol/L 136-145 [facility] Urea nitrogen [Mass/Vol] 32.0 mg/dL 7.0-18.0 [facility] Urea nitrogen/Creatinine [Mass ratio] 19.2 mg/mg [facility] Serum or plasma anion gap de terminationon 01-08-2024 Anion gap [Moles/Vol] 11.8 mmol/L [facility] Automated epithelial cells c ount in urine sediment (number/area)on 01-04-2024 Epithelial cells Auto (Urine sed) [#/Area] RARE #/LPF NONE/RARE [facility] Automated leukocytes count i n urine sediment (number/area)on 01-04-2024 WBC Auto (Urine sed) [#/Area] NONE SEEN #/HPF 0-2 [facility] Automated urine specific gra vity by refractometryon 01-04-2024 Specific gravity Refractometry automated (U) [Rel density] 1.025 1.005-1.025 [facility] Bilirubin Auto test strip (U ) [Mass/Vol]on 01-04-2024 Bilirubin (U) [Mass/Vol] Negative NEGATIVE [facility] Color Auto (U)on 01-04-2024 Color (U) LT. YELLOW YELLOW [facility] Erythrocyte distribution wid th Auto (RBC) [Ratio]on 01-04-2024 Erythrocyte distribution width (RBC) [Ratio] 15.2 % 11.0-15.0 [facility] Estimated glomerular filtrat ion rate (GFR) non- Americanon 01-04-2024 GFR/1.73 sq M.predicted among non-blacks MDRD (S/P/Bld) [Vol rate/Area] 47 mL/min/{1.73_m2} >=60 [facility] Hematocrit Auto (Bld) [Volum e fraction]on 01-04-2024 Hematocrit (Bld) [Volume fraction] 46.3 % 42.0-54.0 [facility] Hemoglobin [Mass/volume] in Bloodon 01-04-2024 Hemoglobin (Bld) [Mass/Vol] 14.1 g/dL 14.0-18.0 [facility] Iron binding capacity [Mass/ volume] in Serum or Plasmaon 01-04-2024 Iron binding capacity [Mass/Vol] 291.0 ug/dL 250.0-450.0 [facility] Iron saturation [Mass Fracti on] in Serum or Plasmaon 01-04-2024 Iron saturation [Mass fraction] 27.8 % [facility] Ketones Auto test strip (U) [Mass/Vol]on 01-04-2024 Ketones (U) [Mass/Vol] Negative NEGATIVE Fi [facility] Laboratory - Chemistry and C hemistry - challengeon 01-04-2024 Albumin [Mass/Vol] 3.5 g/dL 3.4-5.0 [facility] Calcium [Mass/Vol] 8.7 mg/dL 8.5-10.1 [facility] Chloride [Moles/Vol] 106 mmol/L 98-107 [facility] CO2 [Moles/Vol] 26.1 mmol/L 21.0-32.0 [facility] Creatinine [Mass/Vol] 1.46 mg/dL 0.70-1.30 [facility] Ferritin [Mass/Vol] 88.0 ng/mL 26.0-388.0 [facility] GFR/1.73 sq M.predicted MDRD (S/P/Bld) [Vol rate/Area] 57 mL/min/{1.73_m2} >=60 [facility] Glucose [Mass/Vol] 118 mg/dL 74-106 [facility] Iron [Mass/Vol] 81.0 ug/dL 65.0-175.0 [facility] Magnesium [Mass/Vol] 2.3 mg/dL 1.8-2.4 [facility] Potassium [Moles/Vol] 4.7 mmol/L 3.5-5.1 [facility] Sodium [Moles/Vol] 140 mmol/L 136-145 [facility] Urate [Mass/Vol] 6.4 mg/dL 3.5-7.2 [facility] Urea nitrogen [Mass/Vol] 31.0 mg/dL 7.0-18.0 [facility] Urea nitrogen/Creatinine [Mass ratio] 21.2 mg/mg [facility] Leukocytes [#/volume] correc ritu for nucleated erythrocytes in Blood by Automated counon 01-04-2024 WBC corrected for nucl RBC Auto (Bld) [#/Vol] 5.4 10 3/uL 4.0-11.0 [facility] MCH Auto (RBC) [Entitic mass ]on 01-04-2024 MCH (RBC) [Entitic mass] 26.5 pg 25.9-34.0 [facility] MCHC Auto (RBC) [Mass/Vol]on 01-04-2024 MCHC (RBC) [Mass/Vol] 30.5 g/dL 29.9-35.2 [facility] MCV Auto (RBC) [Entitic vol] on 01-04-2024 MCV (RBC) [Entitic vol] 87.0 fL 80.0-94.0 [facility] Mucus LM Ql (Urine sed)on Mucus Ql (Urine sed) NONE SEEN NONE SEEN [facility] No Panel Informationon 01-04 Parathyroid Hormone (Intact) 21 pg/mL 15 [facility] Comment on above: Performed at: - [facility] [address] [id number] Director: Robin Mead PhD, Phone: [phone] Phosphorus Level 4.1 mg/dL 2.6-4.7 [facility] Platelet mean volume Auto (B ld) [Entitic vol]on 01-04-2024 Platelet mean volume (Bld) [Entitic vol] 12.0 fL 9.5-13.5 [facility] Platelets Auto (Bld) [#/Vol] on 01-04-2024 Platelets (Bld) [#/Vol] 106 10 3/uL 150-450 [facility] Protein Auto test strip (U) [Mass/Vol]on 01-04-2024 Protein (U) [Mass/Vol] 30 mg/dL NEG/TRACE [facility] RBC Auto (Bld) [#/Vol]on RBC (Bld) [#/Vol] 5.32 10 6/uL 4.70-6.10 [facility] Serum or plasma anion gap de terminationon 01-04-2024 Anion gap [Moles/Vol] 12.6 mmol/L [facility] Specific gravity Auto test s trip (U) [Rel density]on 01-04-2024 Specific gravity (U) [Rel density] CLEAR CLEAR [facility] Urine bacteria detection by automated methodon 01-04-2024 Bacteria Auto Ql (U) NONE SEEN #/HPF NONE SEEN [facility] Urine glucose measurement by test strip (mass/volume)on 01-04-2024 Glucose Test strip (U) [Mass/Vol] >=1000 mg/dL NEGATIVE [facility] Urine hemoglobin detection b y automated test stripon 01-04-2024 Hemoglobin Auto test strip Ql (U) Negative NEGATIVE [facility] Urine nitrite detection by a utomated test stripon 01-04-2024 Nitrite Auto test strip Ql (U) Negative NEGATIVE [facility] Urine sediment leukocyte cou nt by microscopy (number/high power field)on 01-04-2024 WBC LM.HPF (Urine sed) [#/Area] NONE SEEN #/HPF NONE SEEN [facility] Urobilinogen Auto test strip (U) [Mass/Vol]on 01-04-2024 Urobilinogen Qn (U) 0.2 {Dolores'U}/dL 0.2-1.0 [facility] pH Auto test strip (U)on pH (U) 5.5 [pH] 5.0-9.0 [facility] A1C HEMOGLOBINon 12-22-2023 HbA1c (Bld) [Mass fraction] 7.7 % [facility] Other Glucose - FINGER STICKon Glucose [Mass/Vol] 137 mg/dL [facility] Other HbA1c (Bld) [Mass fraction]o n 12-22-2023 A1C HEMOGLOBIN [facility] Other Basic Metabolic Panelon 10-17 GFR/1.73 sq M.predicted MDRD (S/P/Bld) [Vol rate/Area] 43.529 mL/min/{1.73_m2} Normal [facility] Comment on above: Performed By: #### B MP #### [address] Calcium [Mass/volume] in Ser um or PlasmaOrdered By: Britney Yu on 11-05-2023 Calcium [Mass/Vol] 9.1 mg/dL Normal 8.6-10.3 [facility] Comment on above: Result Comment: PERF ORMED BY: [facility] [address] [place] [address] PATHOLOGIST LAYBOY TENDER TRAN RANDOLPH M.D. Performed By: #### B MP #### [facility] [address] [place] [address] [place] Carbon dioxide, total [Moles /volume] in Serum or PlasmaOrdered By: Britney Yu on 11-05-2023 CO2 [Moles/Vol] 22.5 mmol/L Normal 21.0-31.0 [facility] Comment on above: Performed By: #### B MP #### [facility] [address] [place] [address] [place] Chloride [Moles/volume] in S niya or PlasmaOrdered By: Britney Yu on 11-05-2023 Chloride [Moles/Vol] 104 mmol/L Normal 98-107 [facility] Comment on above: Performed By: #### B MP #### [address] Creatinine [Mass/volume] in Serum or PlasmaOrdered By: Britney Yu on 11-05-2023 Creatinine [Mass/Vol] 1.66 mg/dL High 0.70-1.30 [facility] Comment on above: Performed By: #### B MP #### [place] [address] [place] Glucose [Mass/volume] in Ser um or PlasmaOrdered By: Britney Yu on 11-05-2023 Glucose [Mass/Vol] 354 mg/dL High 70-100 [facility] Comment on above: ADA recommended refe rence rangeRandom Glucose Reference Range is dependent on time and content of last meal. Glucose of more than 200 mg/dL in a nonstressed, ambulatory subject supports the diagnosis of Diabetes Mellitus. Result Comment: [facility] Glucose Reference Range is dependent on time and content of last meal. Glucose of more than 200 mg/dL in a nonstressed, ambulatory subject supports the diagnosis of Diabetes Mellitus. ADA recommended reference range Performed By: #### B MP #### [address] No Panel InformationOrdered By: Britney Yu on 11-05-2023 Estimated GFR (CKD-EPI) 43.529 mL/Min [facility] Creatinine Clearance (Chem N/A [facility] Potassium [Moles/volume] in Serum or PlasmaOrdered By: Britney Yu on 11-05-2023 Potassium [Moles/Vol] 4.5 mmol/L Normal 3.5-5.1 [facility] Comment on above: Performed By: #### B MP #### [address] Serum or plasma anion gap de terminationOrdered By: Britney Yu on 11-05-2023 Anion gap [Moles/Vol] 14.0 mmol/L Normal 6.0-15.0 [facility] Comment on above: Performed By: #### B MP #### [address] Sodium [Moles/volume] in Ser um or PlasmaOrdered By: Britney Yu on 11-05-2023 Sodium [Moles/Vol] 136 mmol/L Normal 136-145 [facility] Comment on above: Performed By: #### B MP #### [address] Urea nitrogen [Mass/volume] in Serum or PlasmaOrdered By: Britney Yu on 11-05-2023 Urea nitrogen [Mass/Vol] 43 mg/dL High 7-25 [facility] Comment on above: Performed By: #### B MP #### [address] Basic Metabolic Panelon 10-16 GFR/1.73 sq M.predicted MDRD (S/P/Bld) [Vol rate/Area] 45.838 mL/min/{1.73_m2} Normal [facility] Comment on above: Performed By: #### B MP #### [address] Calcium [Mass/volume] in Ser um or PlasmaOrdered By: Britney Yu on 10-26-2023 Calcium [Mass/Vol] 9.5 mg/dL Normal 8.6-10.3 [facility] Comment on above: Result Comment: PERF ORMED BY: [place] [address] PATHOLOGIST LAYBOY TENDER TRAN RANDOLPH M.D. Performed By: #### B MP #### [place] [address] [place] Carbon dioxide, total [Moles /volume] in Serum or PlasmaOrdered By: Britney Yu on 10-26-2023 CO2 [Moles/Vol] 25.0 mmol/L Normal 21.0-31.0 [facility] Comment on above: Performed By: #### B MP #### [place] [address] [place] Chloride [Moles/volume] in S niya or PlasmaOrdered By: Britney Yu on 10-26-2023 Chloride [Moles/Vol] 109 mmol/L High 98-107 [facility] Comment on above: Performed By: #### B MP #### [place] [address] [place] Creatinine [Mass/volume] in Serum or PlasmaOrdered By: Britney Yu on 10-26-2023 Creatinine [Mass/Vol] 1.59 mg/dL High 0.70-1.30 [facility] Comment on above: Performed By: #### B MP #### [place] [address] [place] Glucose [Mass/volume] in Ser um or PlasmaOrdered By: Britney Yu on 10-26-2023 Glucose [Mass/Vol] 206 mg/dL High 70-100 [facility] Comment on above: ADA recommended refe rence rangeRandom Glucose Reference Range is dependent on time and content of last meal. Glucose of more than 200 mg/dL in a nonstressed, ambulatory subject supports the diagnosis of Diabetes Mellitus. Result Comment: [facility] Glucose Reference Range is dependent on time and content of last meal. Glucose of more than 200 mg/dL in a nonstressed, ambulatory subject supports the diagnosis of Diabetes Mellitus. ADA recommended reference range Performed By: #### B MP #### [address] [place] [address] [place] No Panel InformationOrdered By: Britney Yu on 10-26-2023 Estimated GFR (CKD-EPI) 45.838 mL/Min [facility] Creatinine Clearance (Chem N/A [facility] Potassium [Moles/volume] in Serum or PlasmaOrdered By: Britney Yu on 10-26-2023 Potassium [Moles/Vol] 5.1 mmol/L Normal 3.5-5.1 [facility] Comment on above: Performed By: #### B MP #### [address] Serum or plasma anion gap de terminationOrdered By: Britney Yu on 10-26-2023 Anion gap [Moles/Vol] 13.1 mmol/L Normal 6.0-15.0 [facility] Comment on above: Performed By: #### B MP #### [address] Sodium [Moles/volume] in Ser um or PlasmaOrdered By: Britney Yu on 10-26-2023 Sodium [Moles/Vol] 142 mmol/L Normal 136-145 [facility] Comment on above: Performed By: #### B MP #### [address] Urea nitrogen [Mass/volume] in Serum or PlasmaOrdered By: Britney Yu on 10-26-2023 Urea nitrogen [Mass/Vol] 28 mg/dL High 7-25 [facility] Comment on above: Performed By: #### B MP #### [address] Capillary blood glucose katie urement by glucometer (mass/volume)Ordered By: Rodney Victro on 10-21-2023 Glucose [Mass/Vol] 155 mg/dL Normal [facility] Comment on above: Random Glucose Refer ence Range is dependent on time and content of last meal. Glucose of more than 200 mg/dL in a nonstressed, ambulatory subject supports the diagnosis of Diabetes Mellitus. Result Comment: [facility] Glucose Reference Range is dependent on time and content of last meal. Glucose of more than 200 mg/dL in a nonstressed, ambulatory subject supports the diagnosis of Diabetes Mellitus. PERFORMED BY: [facility] [place] [address] PATHOLOGIST LAYBOY TENDER TRAN RANDOLPH M.D. Performed By: #### G ESTRELLITA #### Point of Care testing , Gerhard 10-21-2023 L Specimen: [id number] Received: 10/21/23 Status: DONTAE Stanforddipti Num: [id number] Spec Type: Surgical Subm Dr: Rodney Victor MD Tissues: A Colon Biopsy (CECAL POLYP) B Colon Biopsy (TRANSV POLYP) Procedures: LINDA/Martínez Suarez/Obed L4/2 Age/ Patient Sex Location Account Attending Physician Td Giraldo/M [id number] Rodney Victor MD SPEC NUM: [id number] RECD: 10/21/23 STATUS: DONTAE CLAIRE NUM: [id number] EBONI: 10/21/23- [facility] DR: Rodney Victor MD ENTERED: 10/21/[address] [facility] [address]: SPEC TYPE: Surgical DEPT: S [...] submitted in one cassette labeled B1. Specimen: [id number] Received: 10/21/23 Status: DONTAE Rodney Num: [id number] Spec Type: Surgical Subm Dr: Rodney Victor MD Tissues: A Colon Biopsy (CECAL POLYP) B Colon Biopsy (TRANSV POLYP) Procedures: HE/4, Gross/Micro L4/2 Patient: Td Giraldo [id number] (Continued) Specimen: [id number] Received: 10/21/23 (Continued) Signed (signature on file) Beto Torres MD 10/23/23 1144 Specimen: [id number] Received: 10/21/23 Status: DONTAE Rodney Num: [id number] Spec Type: Surgical Subm Dr: Rodney Victor MD Tissues: A Colon Biopsy (CECAL POLYP) B Colon Biopsy (TRANSV POLYP) Procedures: LINDA/Erick, Gross/Micro L4/2 Patient: Td Giraldo [id number] (Continued) Specimen: [id number] Received: 10/21/23 (Continued) Microscopic Description A. Two H E slides reviewed. The microscopic examination confirms the diagnosis. B. Two H E slides reviewed. The microscopic examination confirms the diagnosis. CPT Codes 53304d5 Specimen: [id number] Received: 10/21/23 Status: DONTAE Rodney Num: [id number] Spec Type: Surgical Subm Dr: Rodney Victor MD Tissues: A Colon Biopsy (CECAL POLYP) B Colon Biopsy (TRANSV POLYP) Procedures: HE/4, Gross/Micro L4/2 Patient: Td Giraldo [id number] (Continued) Signed (signature on file) Beto Torres MD 10/23/23 1144 Normal [facility] Glucose - FINGER STICKon Glucose [Mass/Vol] 215 mg/dL [facility] Other US renal BIon 09-17-2023 US renal BI [place] [address] Ultrasound Report Signed Patient: Td Giraldo MR#: [id number] : 1950 Acct:[id number] Age/Sex: 72 / M ADM Date: 09/17/23 Loc: Room: Type: [facility] Attending Dr: Tj Solis MD Ordering [...] Hahn Jr., D.O.09/17/2023 3:32 PM Dictation Location: [place] [address] Tech: Edie Spike Transcribed By: MOE 09/17/23 0655 Dictated By: Toibas Hahn Jr, DO 09/17/231531 Signed By: 09/17/231531 Normal [facility] Tobacco Screening.on 023 Fall risk assessment a) No falls within the last year -[facility] DO Work Phone: Tobacco use status CPHS b) No M -[facility] 250 DO Work Phone: Office Visit (Cardiology)on [...] was originally seen by and then Odilia SmithNP at her recent office visit, and I [...] Patient is no longer receiving care from [place] [facility]: Transferred care to [facility] [...] January, there has been further prolongation of SD interval and mild elongation of QRS duration. [...] a diabe (more content not included)... Normal [facility]ise Tobacco Screening.on 023 Tobacco use status CPHS b) No M [place] [address] DO Work Phone: [facility] MUGA SCAN INJECTIONon [facility] MUGA SCAN INJECTION Patient Name: ADRIEL GIRALDO STUDY: MUGA Performing facility: [facility], [address] [place] [address], [address] [address] [facility] Provider: Odilia Mackenzie RN, OPERATIONS AND MAINTENANCE SPECIALIST PCP: Dr. Sam Perez Supervising provider: Jemima Gastelum MD INDICATION: Cardiomyopathy HISTORY: Gender: M; Age: 72 y/o ; Height: 0 cm; Weight: 131.250117 kg. High Cholesterol; HTN; Denies smoking. COMPARISON: Previous nuclear testing completed [id number] MPI EF=31% at [facility]. Previous echo testing completed [id number] EF= 25-30% at [facility]. ACCESSION NUMBER(S): [id number]; [id number] ORDERING CLINICIAN: ODILIA MACKENZIE TECHNIQUE: The patient received an IV injection of 3 ml of stannous pyrophosphate (PYP) using the in-vivo method of labeling red blood cells. After 15 minutes the patient received another IV injection of 26.1 mCi of Technetium 99m pertechnetate. Planar images of the left ventricle were obtained in the HONDURAN 45, Lt Lateral and anterior projections. FINDINGS: The right ventricle was normal. The left ventricle was mildly dilated in size. Regional wall motion was global. Global resting LVEF was abnormal- at 27%. IMPRESSION: Normal resting right ventricular function. Abnormalresting left ventricular function. Left ventricular ejection fraction is 27%. No previous study available for comparison Electronically signed by: JEMIMA GASTELUM MD [facility] No Panel Informationon 04-27 [facility] Work Phone: IMMUNOFIXATION (EMILY), URINEo n 04-15-2023 EMILY Interpretation:U Comment Normal [facility] Comment on above: Result Comment: No m onoclonality detected. Performed By: #### I MUNFXU #### [facility] [address] [place] [address] Dr. Santos Mchugh PROTEIN ELECTROPHERESIS URIN E RANDOMon 04-15-2023 Albumin, U 66.6 % Normal [facility] Comment on above: Performed By: #### U PTE #### [facility] [address] [place] [address] Dr. Santos Mchugh Alpha-1 Globulin U 4.9 % Normal [facility] [facility] Comment on above: Performed By: #### U PTE #### [facility] [address] [place] [address] Dr. Santos Mchugh Alpha-2 Glubulin U 7.5 % Normal [facility] Comment on above: Performed By: #### U PTE #### [facility] [address] [place] [address] Dr. Santos Mchugh Beta Globulin, U 12.9 % Normal [facility] Comment on above: Performed By: #### U PTE #### [facility] [address] [place] [address] Dr. Santos Mchugh Gamma Globulin U 8.1 % Normal [facility] Comment on above: Performed By: #### U PTE #### [facility] [address] [place] [address] Dr. Santos Mchugh M-Tavo, % Not Observed Normal Not Observed [facility] Comment on above: Performed By: #### U PTE #### [facility] [address] [place] [address] Dr. Santos Mchugh PDF . Normal [facility] Comment on above: Performed By: #### U PTE #### [facility] [address] [place] [address] Dr. Santos Mchugh Please note: Comment Normal [facility] Comment on above: Result Comment: Prot ein electrophoresis scan will follow via computer, mail, or latex dipper delivery. Performed By: #### U PTE #### [facility] [address] [place] [address] Dr. Santos Mchugh Protein (U) [Mass/Vol] 64.1 mg/dL Normal Not Estab. Th [facility] Comment on above: Performed By: #### U PTE #### [facility] [address] [place] [address] Dr. Santos Mchugh FREE LIGHT CHAINS PLUS RATIO on 04-14-2023 Free [place] Lt Chains,S 49.2 mg/L Critically high 3.3-19.4 [facility] Comment on above: Performed By: #### F REELIT #### [facility] [address] [place] [address] Dr. Santos Mchugh Free Lambda Lt Chains,S 19.3 mg/L Normal 5.7-26.3 [facility] Comment on above: Performed By: #### F REELIT #### [facility] [address] [place] [address] Dr. Santos Mchugh [place]/Lambda Ratio, S 2.55 Critically high 0.26-1.65 [facility] Comment on above: Performed By: #### F REELIT #### [facility] [address] [place] [address] Dr. Santos Mchugh IMMUNOFIXATION (EMILY), SERUMo n 04-14-2023 IMMUNOFIXATION RESULT Comment Normal [facility] Comment on above: Result Comment: No m onoclonality detected. Performed By: #### U AMIC #### [facility] [address] [place] [address] [address] Santos Mchugh Immunoglobulin A, Qn, Serum 186 mg/dL Normal 61-437 [facility] Comment on above: Performed By: #### U AMIC #### [facility] [address] [place] [address] [address] Santos Mchugh Immunoglobulin G, Qn, Serum 854 mg/dL Normal 603-1613 [facility] Comment on above: Performed By: #### U AMIC #### [facility] [address] [place] [address] [address] Santos Mchugh Immunoglobulin M, Qn, Serum 62 mg/dL Normal 15-143 [facility] Comment on above: Performed By: #### U AMIC #### [facility] [address] [place] [address] Dr. Santos Mchugh PROTEIN ELECTROPHERESISon Albumin [Mass/Vol] 3.5 g/dL Normal 2.9-4.4 [place] [facility] Comment on above: Performed By: #### P RTELEC #### [facility] [address] [place] [address] Dr. Santos Mchugh Albumin/Globulin [Mass ratio] 1.1 {ratio} Normal 0.7-1.7 [facility] Comment on above: Performed By: #### P RTELEC #### [facility] [address] [place] [address] Dr. Santos Mchugh Wkxte-6-Ocvgtvur 0.2 g/dL Normal 0.0-0.4 [facility] Comment on above: Performed By: #### P RTELEC #### [facility] [address] [place] [address] Dr. Santos Mchugh Nyqky-1-Hxnywghj 0.9 g/dL Normal 0.4-1.0 [facility] Comment on above: Performed By: #### P RTELEC #### [facility] [address] [place] [address] Dr. Santos Mchugh Beta Globulin 1.2 g/dL Normal 0.7-1.3 [facility] Comment on above: Performed By: #### P RTELEC #### [facility] [address] [place] [address] Dr. Santos Mchugh Gamma Globulin 0.8 g/dL Normal 0.4-1.8 [facility] Comment on above: Performed By: #### P RTELEC #### [facility] [address] [place] [address] Dr. Santos Mchugh Globulin (S) [Mass/Vol] 3.1 g/dL Normal 2.2-3.9 [facility] Comment on above: Performed By: #### P RTELEC #### [facility] [address] [place] [address] Dr. Santos Mchugh M-Tavo Comment: Normal Not Observed [facility] Comment on above: Result Comment: SPE shows asymmetrical beta. Performed By: #### P RTELEC #### [facility] [address] [place] [address] Dr. Santos Mchugh PDF . Normal [facility] Comment on above: Performed By: #### P RTELEC #### [facility] [address] [place] [address] Dr. Santos Mchugh Please note: Comment Normal [facility] Comment on above: Result Comment: Prot ein electrophoresis scan will follow via computer, mail, or latex dipper delivery. Performed By: #### P RTELEC #### [facility] [address] [place] [address] Dr. Santso Mchugh Protein [Mass/Vol] 6.6 g/dL Normal 6.0-8.5 [place] [facility] Comment on above: Performed By: #### P RTELEC #### [facility] [address] [place] [address] Dr. Santos Mchugh PTH INTACTon 04-11-2023 PTH, Intact 52 pg/mL Normal 15-65 [facility] Comment on above: Performed By: #### P THINT #### [facility] [address] [place] [address] Dr. Santos Mchugh HEMOGRAM AND PLATELon 2022 Hematocrit (Bld) [Volume fraction] 41.9 % Critically low 42.0-54.0 [facility] Comment on above: Performed By: #### U AMIC #### [facility] [address] [address] [address] Santos Mchugh Hemoglobin (Bld) [Mass/Vol] 13.3 g/dL Critically low 14.0-18.0 [facility] Comment on above: Performed By: #### U AMIC #### [facility] [address] [place] [address] Dr. Santos Mchugh MCH (RBC) [Entitic mass] 26.3 pg Normal 25.9-34.0 [facility] Comment on above: Performed By: #### U AMIC #### [facility] [address] [place] [address] Dr. Santos Mchugh MCHC (RBC) [Mass/Vol] 31.7 g/dL Normal 29.9-35.2 [facility] Comment on above: Performed By: #### U AMIC #### [facility] [address] [place] [address] Dr. Santos Mchugh MCV (RBC) [Entitic vol] 82.8 fL Normal 80.0-94.0 [facility] Comment on above: Performed By: #### U AMIC #### [facility] [address] [place] [address] Dr. Santos Mchugh PLT 167 103/ul Normal 150-450 [facility] Comment on above: Performed By: #### U AMIC #### [facility] [address] [place] [address] Dr. Santos Mchugh RBC 5.06 106/ul Normal 4.70-6.10 [facility] Comment on above: Performed By: #### U AMIC #### [facility] [address] [place] [address] Dr. Santos Mchugh WBC 5.2 103/ul Normal 4.0-11.0 [facility] Comment on above: Performed By: #### U AMIC #### [facility] [address] [place] [address] Dr. Santos Mchugh Office Visit (Cardiology)on 04-10-2023 [...] 20 years. [facility] [place] [facility] Needs [facility] management Status: Hold For [...] with dilated LVEF 31%. I reviewed prior [place] cardiology note dated August 25, 2022. Patient [...] Patient is no longer receiving care from [place] clinic: Transferred care to [facility] [...] reports that usually calibrated yearly by the [place] clinic, will no longer be seen in the [place] clinic and referred to the sleep clinic [...] side eff (more content not included)... Normal [facility] RENAL FUNCTION PANELon 04-10 Albumin [Mass/Vol] 3.6 g/dL Normal 3.4-5.0 [place] [facility] Comment on above: Performed By: #### U KAJAL, RENAL #### [facility] [address] [address] [address] Santos Mchugh Calcium [Mass/Vol] 8.9 mg/dL Normal 8.5-10.1 [facility] Comment on above: Performed By: #### U KAJAL, RENAL #### [facility] [address] [address] [address] Santos Mchugh Chloride [Moles/Vol] 103 mmol/L Normal 98-107 [facility] Comment on above: Performed By: #### U KAJAL, RENAL #### [facility] [address] [address] [address] Santos Mchugh CO2 [Moles/Vol] 28.4 mmol/L Normal 21.0-32.0 [facility] Comment on above: Performed By: #### U KAJAL, RENAL #### [facility] [address] [address] [address] Santos Mchugh Creatinine [Mass/Vol] 1.48 mg/dL Critically high 0.70-1.30 [facility] Comment on above: Performed By: #### U KAJAL, RENAL #### [facility] [address] [address] [address] Santos Mchugh EGFR-AF LIBERIAN 57 mL/min/1.73m2 Critically low >=60 [facility] Comment on above: Performed By: #### U KAJAL, RENAL #### [facility] [address] [address] [address] Santos Mchugh EGFR-NON AF LIBERIAN 47 mL/min/1.73m2 Critically low >=60 [facility] Comment on above: Performed By: #### U KAJAL, RENAL #### [facility] [address] [address] [address] Santos Mchugh Glucose [Mass/Vol] 122 mg/dL Critically high 74-106 [facility] Comment on above: Performed By: #### U KAJAL, RENAL #### [facility] [address] [address] [address] Santos Mchugh Phosphate [Mass/Vol] 3.9 mg/dL Normal 2.6-4.7 [facility] Comment on above: Performed By: #### U KAJAL, RENAL #### [facility] [address] [place] [address] Dr. Santos Mchugh Potassium [Moles/Vol] 4.5 mmol/L Normal 3.5-5.1 [facility] Comment on above: Performed By: #### U KAJAL, RENAL #### [facility] [address] [place] [address] Dr. Santos Mchugh Sodium [Moles/Vol] 140 mmol/L Normal 136-145 [place] [facility] Comment on above: Performed By: #### U KAJAL, RENAL #### [facility] [address] [place] [address] Dr. Santos Mchugh Urea nitrogen [Mass/Vol] 23.0 mg/dL Critically high 7.0-18.0 [facility] Comment on above: Performed By: #### U KAJAL, RENAL #### [facility] [address] [place] [address] Dr. Santos Mchugh Tobacco Screening.on 023 Fall risk assessment a) No falls within the last year [facility] 250 DO Work Phone: Tobacco use status [facility] b) No M [facility] 250 DO Work Phone: UA RANDOM W/MICROSCOPICon BACTERIA NONE SEEN Normal NONE SEEN [facility] Comment on above: Performed By: #### U AMIC #### [facility] [address] [place] [address] Dr. Santos Mchugh Bilirubin Ql (U) Negative Normal NEGATIVE [facility] Comment on above: Performed By: #### U AMIC #### [facility] [address] [place] [address] Dr. Santos Mchugh CAST NONE SEEN Normal NONE SEEN [facility] Comment on above: Performed By: #### U AMIC #### [facility] [address] [address] [address] Santos Mchugh Clarity (U) CLEAR Normal CLEAR [facility] Comment on above: Performed By: #### U AMIC #### [facility] [address] [place] [address] Dr. Santos Mchugh Color (U) LT. YELLOW Normal YELLOW [facility] Comment on above: Performed By: #### U AMIC #### [facility] [address] [address] [address] Santos Mchugh Crystals LM Nom (Urine sed) NONE SEEN Normal NONE SEEN [facility] Comment on above: Performed By: #### U AMIC #### [facility] [address] [place] [address] Dr. Santos Mchugh Epithelial cells LM Ql (Urine sed) NONE SEEN Normal NONE SEEN /RARE [facility] Comment on above: Performed By: #### U AMIC #### [facility] [address] [place] [address] Dr. Santos Mchugh Glucose Ql (U) Negative Normal NEGATIVE [facility] Comment on above: Performed By: #### U AMIC #### [facility] [address] [place] [address] Dr. Santos Mchugh Hemoglobin Ql (U) Negative Normal NEGATIVE [facility] Comment on above: Performed By: #### U AMIC #### [facility] [address] [address] [address] Santos Mchugh Ketones Ql (U) Negative Normal NEGATIVE [facility] Comment on above: Performed By: #### U AMIC #### [facility] [address] [place] [address] Dr. Santos Mchugh LEUKOCYTES Negative Normal NEGATIVE [facility] Comment on above: Performed By: #### U AMIC #### [facility] [address] [place] [address] Dr. Santos Mchugh MUCOUS NONE SEEN Normal NONE SEEN [facility] Comment on above: Performed By: #### U AMIC #### [facility] [address] [address] [address] Santos Mchugh Nitrite Ql (U) Negative Normal NEGATIVE [facility] Comment on above: Performed By: #### U AMIC #### [facility] [address] [place] [address] Dr. Santos Mchugh pH (U) 6.0 [pH] Normal 5-9 [facility] Comment on above: Performed By: #### U AMIC #### [facility] [address] [place] [address] Dr. Santos Mchugh RBC 0-2 Normal 0-2 [facility] Comment on above: Performed By: #### U AMIC #### [facility] [address] [place] [address] Dr. Santos Mchugh SPEC GRAVITY 1.015 Normal 1.005-<=1.02 5 [facility] Comment on above: Performed By: #### U AMIC #### [facility] [address] [address] [address] Santos Mchugh UA PROTEIN 100 mg/dl Abnormal NEGATIVE/ TRACE [facility] Comment on above: Performed By: #### U AMIC #### [facility] [address] [place] [address] Dr. Santos Mchugh Urobilinogen Qn (U) 0.2 {Dolores'U}/dL Normal 0.2 - 1. 0 [facility] Comment on above: Performed By: #### U AMIC #### [facility] [address] [place] [address] Dr. Santos Mchugh WBC NONE SEEN Normal NONE SEEN [facility] Comment on above: Performed By: #### U AMIC #### [facility] [address] [place] [address] Dr. Santos Mchugh URIC ACID SERUMon 04-10-2023 Urate [Mass/Vol] 7.0 mg/dL Normal 3.5-7.2 [facility] Comment on above: Performed By: #### U KAJAL, RENAL #### [facility] [address] [place] [address] Dr. Santos Mchugh URINE T PROTEIN CREAT RATIOo n 04-10-2023 Protein (U) [Mass/Vol] 68.1 mg/dL Critically high <=12.0 [facility] Comment on above: Performed By: #### U RTPCR #### [facility] [address] [address] [address] Santos Mchugh UR PROT CREAT RAT 0.[address] [facility] Comment on above: Performed By: #### U RTPCR #### [facility] [address] [address] [address] Santos Mchugh URINE CREAT 70.53 mg/dL Normal 20.00-300.00 [facility] Comment on above: Performed By: #### U RTPCR #### [facility] [address] [place] [address] Dr. Santos Mchugh VITAMIN D 25 OHon 04-10-2023 VIT D 25-OH 41.0 ng/mL Normal [facility] Comment on above: Performed By: #### V ITAD #### [facility] [address] [address] [address] Santos Mchugh VIT D RANGES SEE BELOW Normal [facility] Comment on above: Result Comment: <20 ng/mL Vit D deficient 20 - <30 ng/mL Vit D insufficient 30 - 100 ng/mL Vit D sufficient >100 ng/mL Potential Toxicity Performed By: #### V ITAD #### [facility] [address] [place] [address] Dr. Santos Mchugh [facility] CARDIAC STRESS/REST INJE CTIONon 03-31-2023 [facility] CARDIAC STRESS/REST INJECTION Patient Name: ADRIEL GIRALDO STUDY: MYOCARDIAL PERFUSION STRESS TEST WITH LEXISCAN Performing facility: [facility], [address] [place] [address], [address], [place] [address] [facility] Provider: Lashell Osborn MD PCP: Dr. Sam Perez Supervising provider: Jemima Gastelum MD INDICATION: Abnormal EKG; Pre-operative risk assessment for Right knee scheduled at [facility] on TBD. HISTORY: Gender: M; Age: 72 y/o ; Height: 0 cm; Weight: 131.233307 kg. Abnormal EKG; High Cholesterol; Diabetes; HTN; Denies smoking. COMPARISON: No comparison. ACCESSION NUMBER(S): [id number]; [id number]; [id number] ORDERING CLINICIAN: LASHELL OSBORN TECHNIQUE: ONE DAY [...] comparison. Electronically signed by: JEMIMA GASTELUM MD [facility] No Panel Informationon 03-31 FINAL REPORT Interpreted by: JEMIMA GASTELUM MD 04/01/23 16:28 Patient Name: ADRIEL GIRALDO STUDY: MYOCARDIAL PERFUSION STRESS TEST WITH LEXISCAN Performing facility: [facility], [address] [place] [address] 250 DO Work Phone: Office Visit (Cardiology)on [...] GIRALDO is being seen for POC for Stanford Rt Knee. History of Present Illness 72 yo male here for pre-operative cardiac clearance prior to TKA of R knee. Patient has no complaints today including chest pain, VALENZUELA, presyncope/syncope. He is unable to complete > 4 METS due to knee pain. His ECG with incomplete LBBB. Has not had an ischemic evaluation in a few years. Initial visit: [facility]. Has a reported hx [...] TabletTAKE 1.5 TABLET 3 times daily Saw Greenleaf 1000 MG Oral CapsuleTAKE DIRECTED. Vitamin D3 [...] Signs Recorded: 23Jan2023 09:16AM Heart Rate63, Apical Eappzyge960, LUE, Sitting Oosdkilhd59, LUE, Sitting Height6 ft 2 in Opylcu401 lb BMI Tyeuoybuqq23.75 kg/m2 BSA Calculated2.56 Tobacco Useb) No PHQ-2 [...] Will c (more content not included)... Normal [employer] Tobacco Screening.on 023 Adult depression screening assessment No [facility] [employer] [place] [facility] 250 DO Work Phone: Fall risk assessment a) No falls within the last year [facility] [employer] 250 DO Work Phone: Tobacco use status [facility] b) No M [facility] [employer] 250 DO Work Phone: MRI Knee w/o [...] by Abhinav Muller on 01/07/2023 1009 Normal [facility] Work[employer] Office Visit (Cardiology)on 12-26-2022 Follow-up visit Diagnoses/Problems Assessed Cardiomyopathy (425.4) (I42.9) CHF (NYHA class II, ACC/AHA stage C) (428.0) (I50.9) Hyperlipidemia (272.4) (E78.5) Primary hypertension (401.9) (I10) Class 2 obesity with body mass index (BMI) of 37.0 to 37.9 in adult (278.00,V85.37) (E66.9,Z68.37) Obstructive sleep apnea, adult (327.23) (G47.33) Never a smoker Orders Cardiomyopathy IO EKG Electrocardiogram- 12 Lead; Status:Complete; Done: [id number] Cardiomyopathy, Primary hypertension Renew: Carvedilol 12.5 MG [...] For - Scheduling,Retrospec tive Authorization Requested for: [id number] SocHx: Never a smoker Tobacco Use Screening; Status:Complete; Done: [id number] Patient Instructions Please bring all medicines, vitamins, [...] seen for a consultation for CHF- former [place] cardiology. History of Present Illness 72 yo [...] TabletTAKE 1.5 TABLET 3 times daily Saw Greenleaf 1000 MG Oral CapsuleTAKE DIRECTED. Vitamin D3 [...] negative for complaint. Vitals Vital Signs Recorded: [id number] 10:52AMRecorded: 28Weq7112 10:51AM Kxokodtv258, LUE, Hqyxujz028, RUE, Sitting Lnyyaoqpo71, LUE, Tclahqe90, RUE, Sitting Heart Rate61, Apical Height6 ft 2 in Knhear436 lb BMI Blziqgkvpg89.75 kg/m2 BSA Calculated2.56 Tobacco Useb) No PHQ-2 [...] current therap (more content not included)... Normal [employer] Tobacco Screening.on 023 Adult depression screening assessment No [facility] [employer] [place] [facility] 250 DO Work Phone: Fall risk assessment a) No falls within the last year [facility] [employer] 250 DO Work Phone: Tobacco use status [facility] b) No M [facility] [employer] 250 DO Work Phone: Quick Fluon 09-08-2022 FLUAV Ab CF (S) [Titer] Negative N Death by Party Other FLUBV Ab CF (S) [Titer] Negative N Death by Party Other SARS-CoV-2 (COVID-19) RNA NA A+probe Ql (Resp)on 09-08-2022 SARS-CoV-2 (COVID-19) RNA HECTOR+probe Ql (Unsp spec) Positive PulseOn Other Auth for Release of Medical Recordson 11-15-2020 Auth for Release of Medical Records [id number] #1.00CD:127 [facility] Formson 09-11-2020 Forms [id number] #1.00CD:127 [facility] Physician Referralon 020 Physician Referral [id number]# 1.00CD:127 [facility] Ambulatory Clinical Summaryo n 09-07-2020 Ambulatory Clinical Summary {[id number] [facility] Patient Educationon 09-07-20 Patient Education Family Medicine [...] Document Reviewed: 07/07/2008 ExitCare? Patient Information ?2013 [employer]. Erectile Dysfunction Erectile dysfunction (ED) is the [...] Document Reviewed: 02/22/2012 ExitCare? Patient Information ?2013 [employer]. [facility] Urology Office/Clinic Noteon 09-07-2020 Urology Office/Clinic Note Chief Complaint New Pt-ED HPI Staff Pt is a new pt, never before seen in our office. He is here today as a referral from [place] due to ED. Has been having difficulty [...] use pde5s due to nitro meds. 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 Reviewed UA. There have been no [...] that he has PSA tony at the [place], and states that the levels are normal. SHANELLE was done today and was negative for any nodules. I have reviewed the previous health record information and history for this patient from Dr. Jackson Follow-up With When Contact Information JEAN CLAUDE JARA, Kevin Roberts Only if needed [facility] [address] [place] [address] [phone] Additional Instructions: Patient Education Benign Prostatic Hyperplasia [...] Dipstick: 2+ (100 mg/dl) (09/07/20 10:27:00) Specific [place] Urine Dipstick: 1.025 (09/07/20 10:27:00) Urine Appearance Urine Dipstick: Clear (09/07/20 10:27:00) Urine Color Urine Dipstick: Yellow (09/07/20 10:27:00) Urobilinogen Urine Dipstick: Normal 0.2-1 EU/dl (09/07/20 10:27:00) pH Urine Dipstick: 5.5 (09/07/20 10:27:00) Normal [facility] Comment on above: Result Comment: Elec tronically Signed By: JEAN CLAUDE JARA, Kevin Roberts\.br\Date and Time Signed: 09/07/20 11:19 EDT\.br\Electronically Co-Signed By: Lashell Kimbrough MA\.br\Date and Time Co-Signed: 09/07/20 11:16 EDT Vital Signs Date Time Vital Sign Value Performing Clinician Facility 08-17-2024 12:41-0400 Body height 188 cm Sb Devon DO Work Phone: [facility] 08-17-2024 12:41-0400 Body mass index (BMI) [Ratio] 34.02 kg/m2 Sb Devon DO Work Phone: [facility] 08-17-2024 12:41-0400 Body weight 120.2 kg Sb Devon DO Work Phone: [facility] 08-17-2024 12:41-0400 Diastolic blood pressure 84 mm[Hg] Sb Devon DO Work Phone: [facility] 08-17-2024 12:41-0400 Heart rate 52 /min Sb Devon DO Work Phone: [facility] 08-17-2024 12:41-0400 SaO2% (BldA) [Mass fraction] 97 % Sb Osorio DO Work Phone: [facility] 08-17-2024 12:41-0400 Systolic blood pressure 130 mm[Hg] Sb Osorio DO Work Phone: [facility] 08-08-2024 14:39-0400 Body height 185.42 cm [facility] 08-08-2024 14:39-0400 Body mass index (BMI) [Ratio] 36.3 kg/m2 [facility] 08-08-2024 14:39-0400 Body weight 124.73 kg [facility] 08-08-2024 14:39-0400 Diastolic blood pressure 70 mm[Hg] [facility] 08-08-2024 14:39-0400 Heart rate 57 /min [facility] 08-08-2024 14:39-0400 Systolic blood pressure 132 mm[Hg] [facility] 07-04-2024 11:02-0400 Body height 185.42 cm [facility] 07-04-2024 11:02-0400 Body mass index (BMI) [Ratio] 36.9 kg/m2 [facility] 07-04-2024 11:02-0400 Body temperature 96.7 [degF] [facility] 07-04-2024 11:02-0400 Body weight 127 kg [facility] 07-04-2024 11:02-0400 Diastolic blood pressure 72 mm[Hg] [facility] 07-04-2024 11:02-0400 Heart rate 60 /min [facility] 07-04-2024 11:02-0400 Respiratory rate 16 /min [facility] 07-04-2024 11:02-0400 SaO2% (BldA) [Mass fraction] 96 % [facility] 07-04-2024 11:02-0400 Systolic blood pressure 142 mm[Hg] [facility] 04-27-2024 11:56-0400 Body height 185.42 cm [facility] 04-27-2024 11:56-0400 Body mass index (BMI) [Ratio] 36.6 kg/m2 [facility] 04-27-2024 11:56-0400 Body weight 126.09 kg [facility] 04-27-2024 11:56-0400 Diastolic blood pressure 68 mm[Hg] [facility] 04-27-2024 11:56-0400 Heart rate 64 /min [facility] 04-27-2024 11:56-0400 Systolic blood pressure 118 mm[Hg] [facility] 04-12-2024 09:55-0400 Body height 185.42 cm MD Jun Perez Work Phone: [facility] 04-12-2024 09:55-0400 Body mass index (BMI) [Ratio] 36.6 kg/m2 MD Jun Perez Work Phone: [facility] 04-12-2024 09:55-0400 Body weight 126.09 kg MD Jun Perez Work Phone: [facility] 04-12-2024 09:55-0400 Diastolic blood pressure 74 mm[Hg] MD Jun Perez Work Phone: [facility] 04-12-2024 09:55-0400 Heart rate 59 /min MD Jun Perez Work Phone: [facility] 04-12-2024 09:55-0400 Systolic blood pressure 133 mm[Hg] MD Jun Perez Work Phone: [facility] 03-24-2024 10:34-0400 Body height 185.42 cm MD Jun Perez Work Phone: [facility] 03-24-2024 10:34-0400 Body mass index (BMI) [Ratio] 36.5 kg/m2 MD Jun Perez Work Phone: [facility] 03-24-2024 10:34-0400 Body weight 125.64 kg MD Jun Perez Work Phone: [facility] 03-24-2024 10:34-0400 Diastolic blood pressure 66 mm[Hg] MD Jun Perez Work Phone: [facility] 03-24-2024 10:34-0400 Heart rate 83 /min MD Jun Perez Work Phone: [facility] 03-24-2024 10:34-0400 Respiratory rate 18 /min MD Jun Perez Work Phone: [facility] 03-24-2024 10:34-0400 SaO2% (BldA) [Mass fraction] 97 % MD Jun Perez Work Phone: [facility] 03-24-2024 10:34-0400 Systolic blood pressure 145 mm[Hg] MD Jun Perez Work Phone: [facility] 03-22-2024 11:20-0400 Body height 185.42 cm MD Jun Perez Work Phone: [facility] 03-22-2024 11:20-0400 Body mass index (BMI) [Ratio] 36.3 kg/m2 MD Jun Perez Work Phone: [facility] 03-22-2024 11:20-0400 Body weight 124.73 kg MD Jun Perez Work Phone: [facility] 03-22-2024 11:20-0400 Diastolic blood pressure 72 mm[Hg] MD Jun Perez Work Phone: [facility] 03-22-2024 11:20-0400 Heart rate 53 /min MD Jun Perez Work Phone: [facility] 03-22-2024 11:20-0400 Respiratory rate 18 /min MD Jun Perez Work Phone: [facility] 03-22-2024 11:20-0400 SaO2% (BldA) [Mass fraction] 98 % MD Jun Perez Work Phone: [facility] [facility] 03-22-2024 11:20-0400 Systolic blood pressure 140 mm[Hg] MD Jun Perez Work Phone: [facility] 01-11-2024 11:46-0500 Body height 185.42 cm MD Jun Perez Work Phone: [facility] 01-11-2024 11:46-0500 Body mass index (BMI) [Ratio] 36.3 kg/m2 MD Jun Perez Work Phone: [facility] 01-11-2024 11:46-0500 Body weight 125.19 kg MD Jun Perez Work Phone: [facility] 01-11-2024 11:46-0500 Diastolic blood pressure 78 mm[Hg] MD Jun Perez Work Phone: [facility] 01-11-2024 11:46-0500 Heart rate 68 /min MD Jun Perez Work Phone: [facility] 01-11-2024 11:46-0500 Respiratory rate 18 /min MD Jun Perez Work Phone: [facility] 01-11-2024 11:46-0500 SaO2% (BldA) [Mass fraction] 98 % MD Jun Perez Work Phone: [facility] 01-11-2024 11:46-0500 Systolic blood pressure 142 mm[Hg] MD Jun Perez Work Phone: [facility] 01-05-2024 11:58-0500 Body height 185.42 cm MD Jun Perez Work Phone: [facility] 01-05-2024 11:58-0500 Body mass index (BMI) [Ratio] 36.6 kg/m2 MD Jun Perez Work Phone: [facility] 01-05-2024 11:58-0500 Body temperature 96.9 [degF] MD Jun Perez Work Phone: [facility] 01-05-2024 11:58-0500 Body weight 125.7 kg MD Jun Perez Work Phone: [facility] 01-05-2024 11:58-0500 Diastolic blood pressure 77 mm[Hg] MD Jun Perez Work Phone: [facility] 01-05-2024 11:58-0500 Heart rate 55 /min MD Jun Perez Work Phone: [facility] 01-05-2024 11:58-0500 Respiratory rate 18 /min MD Jun Perez Work Phone: [facility] 01-05-2024 11:58-0500 SaO2% (BldA) [Mass fraction] 98 % MD Jun Perez Work Phone: [facility] 01-05-2024 11:58-0500 Systolic blood pressure 131 mm[Hg] MD Jun Perez Work Phone: [facility] 12-31-2023 11:36-0500 Body height 185.42 cm MD Jun Perez Work Phone: [facility] 12-31-2023 11:36-0500 Body mass index (BMI) [Ratio] 36.4 kg/m2 MD Jun Perez Work Phone: [facility] 12-31-2023 11:36-0500 Body weight 125.24 kg MD Jun Perez Work Phone: [facility] 12-31-2023 11:36-0500 Diastolic blood pressure 70 mm[Hg] MD Jun Perez Work Phone: [facility] 12-31-2023 11:36-0500 Heart rate 60 /min MD Jun Perez Work Phone: [facility] 12-31-2023 11:36-0500 Systolic blood pressure 131 mm[Hg] MD Jun Perez Work Phone: [facility] 12-22-2023 10:00-0500 Body height 185.42 cm [employer]ona [employer] Other [employer] Other 12-22-2023 10:00-0500 Body mass index (BMI) [Ratio] 36.75 kg/m2 Tondra Mapus Other [employer] Other 12-22-2023 10:00-0500 Body weight 126.37 kg Tondra Mapus Other [employer] Other 12-22-2023 10:00-0500 Diastolic blood pressure 76 mm[Hg] Tondra Mapus Other [employer] Other 12-22-2023 10:00-0500 Respiratory rate 18 /min Tondra Mapus Other [employer] Other 12-22-2023 10:00-0500 SaO2% (BldA) [Mass fraction] 98 % Tondra Mapus Other [employer] Other 12-22-2023 10:00-0500 Systolic blood pressure 137 mm[Hg] Tondra Mapus Other [employer] Other 12-14-2023 11:20-0500 Body height 185.42 cm Jose Wrightomia Other [facility] 12-14-2023 11:20-0500 Body mass index (BMI) [Ratio] 36.94 kg/m2 Jose Adrianaomia Other [employer] Other 12-14-2023 11:20-0500 Body weight 127.01 kg Jose Adrianaomia Other [employer] Other 12-14-2023 11:20-0500 Body weight 127 kg MD Jun Perez Work Phone: [facility] 12-14-2023 11:20-0500 Diastolic blood pressure 84 mm[Hg] Jose Adrianaomia Other [facility] 12-14-2023 11:20-0500 Respiratory rate 18 /min Jose Koromia Other [facility] [employer] Other 12-14-2023 11:20-0500 SaO2% (BldA) [Mass fraction] 98 % Jose Koromia Other [facility] Other 12-14-2023 11:20-0500 Systolic blood pressure 156 mm[Hg] Jose Koromia Other [facility] 11-18-2023 11:20-0500 Body height 185.42 cm Jose Koromia Other [facility] 11-18-2023 11:20-0500 Body mass index (BMI) [Ratio] 36.15 kg/m2 Jose Koromia Other [facility] Other 11-18-2023 11:20-0500 Body weight 124.29 kg Jose Koromia Other [facility] Other 11-18-2023 11:20-0500 Body weight 124.28 kg MD Jun Perez Work Phone: [facility] 11-18-2023 11:20-0500 Diastolic blood pressure 70 mm[Hg] Jose Koromia Other [facility] 11-18-2023 11:20-0500 Respiratory rate 18 /min Jose Koromia Other [facility] Other 11-18-2023 11:20-0500 SaO2% (BldA) [Mass fraction] 96 % Jose Koromia Other [facility] Other 11-18-2023 11:20-0500 Systolic blood pressure 132 mm[Hg] Jose Koromia Other [facility] 10-31-2023 12:15-0500 Body height 185.42 cm MD Jun Perez Work Phone: [facility] 10-31-2023 12:15-0500 Body weight 127 kg MD Jun Perez Work Phone: [facility] 10-31-2023 12:15-0500 Diastolic blood pressure 71 mm[Hg] MD Jun Perez Work Phone: [facility] 10-31-2023 12:15-0500 Systolic blood pressure 130 mm[Hg] MD Jun Perez Work Phone: [facility] 10-21-2023 12:17-0500 Diastolic blood pressure 78 mm[Hg] MD Jun Perez Work Phone: [facility] 10-21-2023 12:17-0500 Heart rate 54 /min MD Jun Perez Work Phone: [facility] 10-21-2023 12:17-0500 Respiratory rate 16 /min MD Jun Perez Work Phone: [facility] 10-21-2023 12:17-0500 SaO2% (BldA) [Mass fraction] 98 % MD Jun Perez Work Phone: [facility] 10-21-2023 12:17-0500 Systolic blood pressure 144 mm[Hg] MD Jun Perez Work Phone: [facility] 10-21-2023 10:35-0500 Body height 187.96 cm MD Jun Perez Work Phone: [facility] 10-21-2023 10:35-0500 Body temperature 97.8 [degF] MD Jun Perez Work Phone: [facility] 10-21-2023 10:35-0500 Body weight 121.1 kg MD Jun Perez Work Phone: [facility] 10-15-2023 11:23-0500 Body height 188 cm Britney Yu MD Work Phone: [facility] 10-15-2023 11:23-0500 Body mass index (BMI) [Ratio] 35.31 kg/m2 Britney Yu MD Work Phone: [facility] 10-15-2023 11:23-0500 Body weight 124.74 kg Britney Yu MD Work Phone: [facility] 10-15-2023 11:23-0500 Diastolic blood pressure 82 mm[Hg] Britney Yu MD Work Phone: [facility] 10-15-2023 11:23-0500 Heart rate 64 /min Britney Yu MD Work Phone: [facility] 10-15-2023 11:23-0500 Systolic blood pressure 130 mm[Hg] Britney Yu MD Work Phone: [facility] 09-28-2023 10:32-0500 Body height 188 cm Britney Yu MD Work Phone: [facility] 09-28-2023 10:32-0500 Body mass index (BMI) [Ratio] 36.21 kg/m2 Britney Yu MD Work Phone: [facility] 09-28-2023 10:32-0500 Body weight 127.91 kg Britney Yu MD Work Phone: [facility] 09-28-2023 10:32-0500 Diastolic blood pressure 80 mm[Hg] Britney Yu MD Work Phone: [facility] 09-28-2023 10:32-0500 Heart rate 64 /min Britney Yu MD Work Phone: [facility] 09-28-2023 10:32-0500 Systolic blood pressure 138 mm[Hg] Britney Yu MD Work Phone: [facility] 09-17-2023 09:45-0400 Body height 185.42 cm Duncan Parham Other [employer] Other 09-17-2023 09:45-0400 Body mass index (BMI) [Ratio] 37.33 kg/m2 Tondra Mapus Other [employer] Other 09-17-2023 09:45-0400 Body weight 128.37 kg Tondra Mapus Other [employer] Other 09-17-2023 09:45-0400 Diastolic blood pressure 68 mm[Hg] Tondra Mapus Other [employer] Other 09-17-2023 09:45-0400 Respiratory rate 18 /min Tondra Mapus Other [employer] Other 09-17-2023 09:45-0400 SaO2% (BldA) [Mass fraction] 96 % Tondra Mapus Other [employer] Other 09-17-2023 09:45-0400 Systolic blood pressure 128 mm[Hg] Tondra Mapus Other [employer] Other 06-08-2023 11:25-0400 Body height 187.96 cm Jun Perez Work Phone: [facility] Work Phone: 06-08-2023 11:25-0400 Body mass index (BMI) [Ratio] 36.72 kg/m2 Jun Perez Work Phone: [facility] DO Work Phone: 06-08-2023 11:25-0400 Body surface area Derived from formula 2.53 m2 Jun Perez Work Phone: [facility] DO Work Phone: 06-08-2023 11:25-0400 Body weight 129.73 kg Jun Perez Work Phone: [facility] DO Work Phone: 06-08-2023 11:25-0400 Diastolic blood pressure 68 mm[Hg] Jun Perez Work Phone: [facility] DO Work Phone: 06-08-2023 11:25-0400 Heart rate 56 /min Jun Perez Work Phone: [facility] DO Work Phone: 06-08-2023 11:25-0400 Systolic blood pressure 136 mm[Hg] Jun Perez Work Phone: [facility] DO Work Phone: 05-14-2023 10:45-0400 Body height 187.96 cm Jun Perez Work Phone: [facility] DO Work Phone: 05-14-2023 10:45-0400 Body mass index (BMI) [Ratio] 36.85 kg/m2 Jun Perez Work Phone: [facility] DO Work Phone: 05-14-2023 10:45-0400 Body surface area Derived from formula 2.53 m2 Jun Perez Work Phone: [facility] DO Work Phone: 05-14-2023 10:45-0400 Body weight 130.18 kg Jun Perez Work Phone: [facility] DO Work Phone: 05-14-2023 10:45-0400 Diastolic blood pressure 80 mm[Hg] Jun Perez Work Phone: [facility] [employer] 250 DO Work Phone: 05-14-2023 10:45-0400 Heart rate 56 /min Jun Perez Work Phone: [facility] [employer] [facility] DO Work Phone: 05-14-2023 10:45-0400 Systolic blood pressure 128 mm[Hg] Jun Perez Work Phone: [facility] [employer] [facility] DO Work Phone: 04-17-2023 09:15-0400 Body height 185.42 cm Jun Perez Other [employer] Other 04-17-2023 09:15-0400 Body mass index (BMI) [Ratio] 38.52 kg/m2 Jun Perez Other [employer] Other 04-17-2023 09:15-0400 Body weight 132.45 kg Jun Perez Other [employer] Other 04-17-2023 09:15-0400 Diastolic blood pressure 77 mm[Hg] Jun Perez Other [employer] Other 04-17-2023 09:15-0400 Systolic blood pressure 146 mm[Hg] Jun Perez Other [employer] Other 04-16-2023 11:40-0400 Body height 185.42 cm Tj Mayo Other [employer] Other 04-16-2023 11:40-0400 Body mass index (BMI) [Ratio] 39.14 kg/m2 Tj Mayo Other [employer] Other 04-16-2023 11:40-0400 Body temperature 97.8 [degF] Tj Mayo Other [employer] Other 04-16-2023 11:40-0400 Body weight 134.58 kg Tj Mayo Other [employer] Other 04-16-2023 11:40-0400 Diastolic blood pressure 80 mm[Hg] Tj Mayo Other [employer] Other 04-16-2023 11:40-0400 Respiratory rate 18 /min Tj Mayo Other [employer] Other 04-16-2023 11:40-0400 SaO2% (BldA) [Mass fraction] 97 % Tj Mayo Other [employer] Other 04-16-2023 11:40-0400 Systolic blood pressure 144 mm[Hg] Tj Mayo Other [employer] Other 04-10-2023 15:44-0400 Body height 187.96 cm Jun Perez Work Phone: [facility] [employer] 250 DO Work Phone: 04-10-2023 15:44-0400 Body mass index (BMI) [Ratio] 25.17 kg/m2 Jun Perez Work Phone: [facility] [employer] 250 DO Work Phone: 04-10-2023 15:44-0400 Body surface area Derived from formula 2.15 m2 Jun Perez Work Phone: [facility] [employer] 250 DO Work Phone: 04-10-2023 15:44-0400 Body weight 88.91 kg Jun Perez Work Phone: [facility] [employer] 250 DO Work Phone: 04-10-2023 15:44-0400 Diastolic blood pressure 72 mm[Hg] Jun Perez Work Phone: [facility] [employer] 250 DO Work Phone: 04-10-2023 15:44-0400 Heart rate 64 /min Jun Perez Work Phone: [facility] [employer] DO Work Phone: 04-10-2023 15:44-0400 Systolic blood pressure 126 mm[Hg] Jun Perez Work Phone: [facility] [employer] DO Work Phone: 02-17-2023 12:15-0400 Body height 185.42 cm Jun Perez Other [employer] Other 02-17-2023 12:15-0400 Body mass index (BMI) [Ratio] 38.39 kg/m2 Jun Perez Other [employer] Other 02-17-2023 12:15-0400 Body temperature 98.6 [degF] Jun Perez Other [employer] Other 02-17-2023 12:15-0400 Body weight 132 kg Jun Perez Other [employer] Other 02-17-2023 12:15-0400 Diastolic blood pressure 82 mm[Hg] Jun Perez Other [employer] Other 02-17-2023 12:15-0400 SaO2% (BldA) [Mass fraction] 97 % Jun Perez Other [employer] Other 02-17-2023 12:15-0400 Systolic blood pressure 122 mm[Hg] Jun Perez Other [employer] Other 02-04-2023 16:40-0400 Body height 185.42 cm Tj Mayo Other [employer] Other 02-04-2023 16:40-0400 Body mass index (BMI) [Ratio] 38.28 kg/m2 Tj Mayo Other [employer] Other 02-04-2023 16:40-0400 Body weight 131.63 kg Tj Mayo Other [employer] Other 02-04-2023 16:40-0400 Diastolic blood pressure 96 mm[Hg] Tj Mayo Other [employer] Other 02-04-2023 16:40-0400 Respiratory rate 18 /min Tj Mayo Other [employer] Other 02-04-2023 16:40-0400 SaO2% (BldA) [Mass fraction] 98 % Tj Mayo Other [employer] Other 02-04-2023 16:40-0400 Systolic blood pressure 164 mm[Hg] Tj Mayo Other [employer] Other 01-23-2023 09:16-0500 Body height 187.96 cm Jun Perez Work Phone: [facility] [employer] 250 DO Work Phone: 01-23-2023 09:16-0500 Body mass index (BMI) [Ratio] 37.75 kg/m2 Jun Perez Work Phone: [facility] DO Work Phone: 01-23-2023 09:16-0500 Body surface area Derived from formula 2.56 m2 Jun Perez Work Phone: [facility] DO Work Phone: 01-23-2023 09:16-0500 Body weight 133.36 kg Jun Perez Work Phone: [facility] DO Work Phone: 01-23-2023 09:16-0500 Diastolic blood pressure 82 mm[Hg] Jun Perez Work Phone: [facility] DO Work Phone: 01-23-2023 09:16-0500 Heart rate 63 /min Jun Perez Work Phone: [facility] DO Work Phone: 01-23-2023 09:16-0500 Systolic blood pressure 136 mm[Hg] Jun Perez Work Phone: [facility] DO Work Phone: 12-26-2022 10:52-0500 Diastolic blood pressure 80 mm[Hg] Jun Perez Work Phone: [facility] DO Work Phone: 12-26-2022 10:52-0500 Systolic blood pressure 148 mm[Hg] Jun Perez Work Phone: [facility] DO Work Phone: 12-26-2022 10:51-0500 Body height 187.96 cm Jun Perez Work Phone: [facility] DO Work Phone: 12-26-2022 10:51-0500 Body mass index (BMI) [Ratio] 37.75 kg/m2 Jun Perez Work Phone: [facility] DO Work Phone: 12-26-2022 10:51-0500 Body surface area Derived from formula 2.56 m2 Jun Perez Work Phone: [facility] DO Work Phone: 12-26-2022 10:51-0500 Body weight 133.36 kg Jun Perez Work Phone: [facility] [employer] 250 DO Work Phone: 12-26-2022 10:51-0500 Diastolic blood pressure 80 mm[Hg] Jun Perez Work Phone: [facility] DO Work Phone: 12-26-2022 10:51-0500 Heart rate 61 /min Jun Perez Work Phone: [facility] DO Work Phone: 12-26-2022 10:51-0500 Systolic blood pressure 146 mm[Hg] Jun Perez Work Phone: [facility] 250 DO Work Phone: 12-01-2022 16:00-0500 Body height 185.42 cm Jun Perez Other [facility] Other 12-01-2022 16:00-0500 Body mass index (BMI) [Ratio] 38.92 kg/m2 Jun Perez Other [facility] Other 12-01-2022 16:00-0500 Body weight 133.81 kg Jun Perez Other [facility] Other 12-01-2022 16:00-0500 Diastolic blood pressure 80 mm[Hg] Jun Perez Other [employer] Other 12-01-2022 16:00-0500 SaO2% (BldA) [Mass fraction] 98 % Jun Perez Other [employer] Other 12-01-2022 16:00-0500 Systolic blood pressure 140 mm[Hg] Jun Perez Other [employer] Other 11-20-2022 10:30-0500 Body height 187.96 cm Edie Lito Other [employer] Other 11-20-2022 10:30-0500 Body mass index (BMI) [Ratio] 37.61 kg/m2 Edie Morse Other [employer] Other 11-20-2022 10:30-0500 Body weight 132.9 kg Edie Morse Other [employer] Other 11-20-2022 10:30-0500 Diastolic blood pressure 79 mm[Hg] Edie Morse Other [employer] Other 11-20-2022 10:30-0500 Respiratory rate 20 /min Edie Morse Other [employer] Other 11-20-2022 10:30-0500 SaO2% (BldA) [Mass fraction] 98 % Edie Morse Other [employer] Other 11-20-2022 10:30-0500 Systolic blood pressure 146 mm[Hg] Edie Morse Other [employer] Other 09-08-2022 10:15-0400 Body height 187.96 cm Phyllis Amy Other [employer] Other 09-08-2022 10:15-0400 Body mass index (BMI) [Ratio] 36.59 kg/m2 Phyllis Amy Other [employer] Other 09-08-2022 10:15-0400 Body temperature 97.6 [degF] Phyllis Amy Other [employer] Other 09-08-2022 10:15-0400 Body weight 129.28 kg Phyllis Amy Other [employer] Other 09-08-2022 10:15-0400 Diastolic blood pressure 59 mm[Hg] Phyllis Reyes Other [employer] Other 09-08-2022 10:15-0400 Respiratory rate 18 /min Phyllis Reyes Other [facility] Other 09-08-2022 10:15-0400 SaO2% (BldA) [Mass fraction] 97 % Phyllis Reyes Other [facility] Other 09-08-2022 10:15-0400 Systolic blood pressure 112 mm[Hg] Phyllis Yoomond Other [facility] Other 05-25-2022 13:35-0400 Body height 187.96 cm Phyllis Amy Other [facility] Other 05-25-2022 13:35-0400 Body mass index (BMI) [Ratio] 37.23 kg/m2 Phyllis Amy Other [employer] Other 05-25-2022 13:35-0400 Body temperature 97.4 [degF] Phyllis Reyes Other [employer] Other 05-25-2022 13:35-0400 Body weight 131.54 kg Phyllis Reyes Other [employer] Other 05-25-2022 13:35-0400 Diastolic blood pressure 82 mm[Hg] Phyllis Reyes Other [employer] Other 05-25-2022 13:35-0400 Respiratory rate 18 /min Phyllis Reyes Other [employer] Other 05-25-2022 13:35-0400 SaO2% (BldA) [Mass fraction] 96 % Phyllis Reyes Other [employer] Other 05-25-2022 13:35-0400 Systolic blood pressure 142 mm[Hg] Phyllis Reyes Other [employer] Other 04-30-2022 11:00-0400 Body height Mary Bryson Other [employer] Other 04-30-2022 11:00-0400 Body mass index (BMI) [Ratio] 37.23 kg/m2 Mary Adelaide Other [employer] Other 04-30-2022 11:00-0400 Body weight 131.54 kg Maryloren Bryson Other [employer] Other Encounters Encounter Date Encounter Type Care Provider Facility Start: 08-17-2024 End: 08-17-2024 [employer] flowsheet Sb Osorio DO Work Phone: [facility] Start: 08-17-2024 End: 08-17-2024 [employer] [facility] Start: 08-17-2024 End: 08-17-2024 Office outpatient new 45 minutes Sb Osorio DO Work Phone: [facility] Comment on above: EVY (obstructive sle ep apnea); Hypersomnia; Snoring; Class 2 obesity due to excess calories with body mass index (BMI) of 36.0 to 36.9 in adult, unspecified whether serious comorbidity present Start: 08-17-2024 End: 08-17-2024 ambulatory SB OSORIO Not Available Start: 08-08-2024 End: 08-08-2024 ambulatory [facility] Work Phone: Start: 08-08-2024 End: 08-08-2024 Patient encounter procedure [facility] Work Phone: Start: 07-04-2024 End: 07-04-2024 ambulatory [facility] Work Phone: Start: 07-04-2024 End: 07-04-2024 Patient encounter procedure [facility] Work Phone: Start: 06-29-2024 Non-patient / Non-visit [facility] Work Phone: Start: 04-27-2024 End: 04-27-2024 ambulatory [facility] Work Phone: Start: 04-27-2024 End: 04-27-2024 Patient encounter procedure [facility] Work Phone: Start: 04-20-2024 Non-patient / Non-visit [facility] Work Phone: Start: 04-12-2024 End: 04-12-2024 ambulatory MD Jun Perez Work Phone: [facility] Work Phone: Start: 04-12-2024 End: 04-12-2024 Patient encounter procedure MD Jun Perez Work Phone: [facility] Work Phone: Start: 03-24-2024 End: 03-24-2024 ambulatory MD Jun Perez Work Phone: [facility] Work Phone: Start: 03-24-2024 End: 03-24-2024 Patient encounter procedure MD Jun Perez Work Phone: [facility] Work Phone: Start: 03-22-2024 End: 03-22-2024 ambulatory MD Jun Perez Work Phone: [facility] Work Phone: Start: 03-22-2024 End: 03-22-2024 Patient encounter procedure MD Jun Perez Work Phone: [facility] Work Phone: Start: 03-07-2024 End: 03-07-2024 Patient encounter procedure MD Jun Perez Work Phone: [facility] Work Phone: Start: 03-07-2024 End: 03-07-2024 ambulatory MD Jun Perez Work Phone: [facility] Work Phone: Start: 03-07-2024 Non-patient / Non-visit [facility] Work Phone: Start: 01-11-2024 End: 01-11-2024 ambulatory MD Jun Perez Work Phone: [facility] Work Phone: Start: 01-11-2024 End: 01-11-2024 Patient encounter procedure MD Jun Perez Work Phone: [facility] Work Phone: Start: 01-08-2024 Non-patient / Non-visit MD Xochitl Perez Work Phone: [facility] Work Phone: Start: 01-05-2024 End: 01-05-2024 ambulatory MD Jun Perez Work Phone: [facility] Work Phone: Start: 01-05-2024 End: 01-05-2024 Patient encounter procedure MD Jun Perez Work Phone: [facility] Work Phone: Start: 01-04-2024 Non-patient / Non-visit MD Xochitl Perez Work Phone: [facility] Work Phone: Start: 12-31-2023 End: 12-31-2023 ambulatory MD Jun Perez Work Phone: [facility] Work Phone: Start: 12-31-2023 End: 12-31-2023 Patient encounter procedure MD Jun Perez Work Phone: [facility] Work Phone: Start: 12-22-2023 (DM) Diabetes Tondra Dione [facility] Start: 12-22-2023 End: 12-22-2023 ambulatory MD Jun Perez Work Phone: [facility] [employer] Other Start: 12-22-2023 End: 12-22-2023 Discharged Recurring MD Jun Perez Work Phone: [facility] Work Phone: Start: 12-22-2023 Registered Recurring MD Jun Perez Work Phone: [facility] Work Phone: Start: 12-14-2023 End: 12-14-2023 ambulatory Jose Yu Other [employer] Other Start: 12-14-2023 Office outpatient vi sit 25 minutes Jose Koromia [facility] Start: 12-14-2023 Telephone encounter Jose Yu [facility] Start: 12-14-2023 End: 12-14-2023 Patient encounter procedure MD Jun Perez Work Phone: [facility]- Start: 11-20-2023 Patient encounter procedure MD Jun Perez Work Phone: [facility]- Start: 11-19-2023 End: 11-19-2023 ambulatory Jun Perez Other [employer] Other Start: 11-19-2023 Office outpatient vi sit 15 minutes Jun Perez [facility] Start: 11-19-2023 Telephone encounter Tj Solis [facility] [employer] Start: 11-18-2023 End: 11-18-2023 ambulatory Jose Yu Other [employer] Other Start: 11-18-2023 Office outpatient ne w 45 minutes Jose Adrianaomia [facility] Start: 11-18-2023 End: 11-18-2023 Patient encounter procedure MD Jun Perez Work Phone: [facility] Work Phone: Start: 11-05-2023 End: 11-05-2023 Patient encounter procedure MD Jun Perez Work Phone: [facility] [place] Work Phone: Start: 11-05-2023 End: 11-05-2023 ambulatory MD Jun Perez Work Phone: [facility] Work Phone: Start: 11-04-2023 End: 11-04-2023 ambulatory Duncan Parham Other [employer] Other Start: 11-04-2023 Telephone encounter Duncan Parham [facility] Start: 10-31-2023 End: 10-31-2023 Patient encounter procedure MD Jun Perez Work Phone: [facility] [place] Work Phone: Start: 10-26-2023 End: 10-26-2023 Patient encounter procedure MD Jun Perez Work Phone: [facility] [place] Work Phone: Start: 10-26-2023 End: 10-26-2023 ambulatory MD Jun Perez Work Phone: [facility] Work Phone: Start: 10-21-2023 End: 10-21-2023 Admission to same day surgery center MD Jun Perez Work Phone: [facility] Work Phone: Start: 10-21-2023 End: 10-21-2023 ambulatory MD Jun Perez Work Phone: [facility] Work Phone: Start: 10-15-2023 End: 10-15-2023 Office outpatient visit 25 minutes Britney Yu MD Work Phone: [facility] Comment on above: CHF (congestive hear t failure), NYHA class II, acute on chronic, combined (CMS/HCC); Primary hypertension; Nonischemic cardiomyopathy (CMS/HCC); Medication course changed; Hypertensive heart and CKD, 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); Mixed hyperlipidemia; Diabetes mellitus with kidney disease (CMS/HCC) Start: 10-15-2023 End: 10-15-2023 ambulatory [facility] Start: 09-28-2023 Telephone encounter Nancy MOSQUEDA Nephrology Start: 09-28-2023 End: 09-28-2023 Office outpatient visit 25 minutes Britney Yu MD Work Phone: [facility] Comment on above: Personality disorder (CMS/HCC) (Primary Dx); Obesity, morbid (CMS/HCC); Hypertensive heart and CKD, 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); CHF (congestive heart failure), NYHA class II, acute on chronic, combined ([facility]); Diabetes mellitus with kidney disease ([facility]); Mixed hyperlipidemia; Primary hypertension; Medication course changed Start: 09-28-2023 End: 09-28-2023 ambulatory BRITNEY YU [place] [employer] Other Start: 09-25-2023 Patient encounter status Luis Yu MD Work Phone: [facility] Work Phone: Start: 09-17-2023 (DM) Diabetes Duncan [facility] Start: 09-17-2023 Telephone encounter Nancy MOSQUEDA Nephrology Start: 09-17-2023 End: 09-17-2023 Patient encounter procedure MD Jun Perez Work Phone: [facility] [place] Work Phone: Start: 09-17-2023 End: 09-17-2023 ambulatory MD Jun Perez Work Phone: [facility] [employer] Other Start: 09-17-2023 Registered Recurring MD Jun Perez Work Phone: [facility] Work Phone: Start: 09-15-2023 End: 09-15-2023 ambulatory Rodney Victor Other [facility] Other Start: 09-15-2023 Telephone encounter Rodney De La Rosa [employer] Start: 08-17-2023 End: 08-17-2023 ambulatory [facility] Facility:[facility] Start: 06-08-2023 Office outpatient vi sit 25 minutes Jun Perez [facility] Work Phone: Start: 05-14-2023 Office outpatient vi sit 25 minutes Jun Perez Work Phone: [facility] 250 DO Work Phone: Start: 05-14-[address] Jun Perez Facility: Start: 05-06-2023 End: 05-07-2023 ambulatory Ritchie Clark Giselle Facility:[facility] Start: 05-01-2023 End: 05-01-2023 ambulatory Jun Perez Other [employer] Other Start: 05-01-2023 Telephone encounter Jun Perez [facility] Start: 04-27-2023 ambulatory Odilia Mackenzie Facility:[id number] Start: 04-17-2023 End: 04-17-2023 ambulatory Jun Perez Other [employer] Other Start: 04-17-2023 Office outpatient vi sit [address] [facility] Start: 04-16-2023 End: 04-16-2023 ambulatory Tj Mayo Other [employer] Other Start: 04-16-2023 Office outpatient vi sit 25 minutes Tj Mayo [facility] [place] Start: 04-10-2023 Office outpatient vi sit 25 minutes Jun Perez Work Phone: [facility] 250 DO Work Phone: Start: 04-10-2023 Patient encounter procedure Jun Perez Work Phone: [facility] 250 DO Work Phone: Start: 04-10-[address] Jun Perez Facility: Start: 04-10-2023 End: 04-11-2023 ambulatory TJ MAYO Facility: Start: 04-01-[address] Lashell Betancourt ty:[id number] Start: 03-31-2023 Encounter for preprocedural cardiovascular examination Dr. Lashell Osborn [facility] Start: 03-31-[address] Lashell Betancourt ty:[id number] Start: 03-31-2023 Encounter for preprocedural cardiovascular examination Dr. Lashell Osborn [facility] Start: 03-09-2023 End: 03-09-2023 ambulatory Tj Mayo Other [employer] Other Start: 03-09-2023 Telephone encounter Tj Mayo [facility] Start: 02-17-2023 End: 02-17-2023 ambulatory Jun Perez Other [employer] Other Start: 02-17-2023 Office outpatient vi sit 15 minutes Jun Perez [facility] Start: 02-06-2023 End: 02-06-2023 ambulatory Tj Mayo Other [employer] Other Start: 02-06-2023 Telephone encounter Tj Mayo [facility] [employer] Start: 02-04-2023 End: 02-04-2023 ambulatory Tj Mayo Other [employer] Other Start: 02-04-2023 Office outpatient ne w 45 minutes Tj Mayo [facility] Start: 02-04-2023 Telephone encounter Tj Mayo [facility] Start: 01-23-2023 Office outpatient vi sit 25 minutes Jun Perez Work Phone: [facility] 250 DO Work Phone: Start: 01-23-[address] Jun Perez Facility: Start: 12-29-2022 End: 12-29-2022 ambulatory Jun Perez Other [employer] Other Start: 12-29-2022 Telephone encounter Jun Perez [facility] Start: 12-26-2022 Office outpatient ne w 45 minutes Jun Perez Work Phone: [facility] 250 DO Work Phone: Start: 12-26-[address] Malika Patel Facility: Start: 12-02-2022 End: 12-02-2022 ambulatory Jun Perez Other [employer] Other Start: 12-02-2022 Telephone encounter Jun Perez [facility] Start: 12-01-2022 End: 12-01-2022 ambulatory Jun Perez Other [employer] Other Start: 12-01-2022 Office outpatient ne w 60 minutes Jun Perez [facility] Start: 11-25-2022 End: 11-25-2022 ambulatory Edie Morse Other [employer] Other Start: 11-25-2022 Telephone encounter Edie azar [facility] [employer] Start: 11-20-2022 End: 11-20-2022 ambulatory Edie Morse Other [employer] Other Start: 11-20-2022 Office outpatient ne w 30 minutes Edie Morse [facility] Start: 09-08-2022 End: 09-08-2022 ambulatory Phyllis Reyes Other [employer] Other Start: 09-08-2022 Office outpatient vi sit 15 minutes Phyllisfady Reyes [facility] Start: 05-25-2022 End: 05-25-2022 ambulatory Phyllisfady Reyes Other [employer] Other Start: 05-25-2022 Office outpatient vi sit 15 minutes Phyllis Amy [facility] Start: 04-30-2022 End: 04-30-2022 ambulatory Mary Bryson Other [employer] Other Start: 04-30-2022 Office outpatient vi sit 25 minutes Mary Bryson [facility] Start: 03-13-2013 End: 03-14-2013 Emergency department patient visit NO REFERRING DR Facility:[facility] Patient encounter status Jun Perez Work Phone: -[facility] 250 DO Work Phone: Procedures Date Procedure [...] Treatment Date Care Activity Detail Author Start: 08-17-2024 End: 08-17-2024 Patient encounter procedure 08/17/2024 12:30 PM EDT Office Visit [facility] [address] [place] [address] Sb Osorio DO [address] [place] [address] [facility] Comment on above: Arrived Start: 07-17-2024 Influenza vaccination Influenza Vacc ine (#1) [facility] Start: 03-28-2024 End: 03-28-2024 Patient encounter procedure 03/28/2024 10:45 AM EDT Office Visit [facility] [address] [facility] [address] [place] [address] Britney Yu MD [address] [facility] [address] [place] [address] [facility] Start: 10-29-2023 End: 10-15-2024 Basic metabolic 2000 panel - Serum or Plasma Basic Metabolic Panel Lab Routine CHF (congestive heart failure), NYHA class II, acute on chronic, combined (CMS/HCC) Nonischemic cardiomyopathy (CMS/HCC) Medication course changed Expected: 10/29/2023 (Approximate), Expires: 10/15/2024 [facility] [[email or web address] Service Area Work Phone: Comment on above: Expected: 10/29/2023 (Approximate), Expires: 10/15/2024 Start: 10-22-2023 End: 10-15-2024 Basic metabolic 2000 panel - Serum or Plasma Basic Metabolic Panel Lab Routine CHF (congestive heart failure), NYHA class II, acute on chronic, combined (CMS/HCC) Nonischemic cardiomyopathy (CMS/HCC) Medication course changed Expected: 10/22/2023 (Approximate), Expires: 10/15/2024 [facility] Work Phone: Comment on above: Expected: 10/22/2023 (Approximate), Expires: 10/15/2024 Start: 10-21-2023 [facility] Start: 10-15-2023 End: 10-15-2023 Patient encounter procedure 10/15/2023 10:45 AM EST Office Visit [facility] [address] [facility] [address] [place] [address] Britney Yu MD [address] [place] [address] [address] [place] [employer], [place] [id number] [facility] Start: 10-05-2023 End: 09-28-2024 Basic metabolic 2000 panel - Serum or Plasma Basic Metabolic Panel Lab Routine Hypertensive heart and CKD, 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) CHF (congestive heart failure), NYHA class II, acute on chronic, combined (CMS/HCC) Diabetes mellitus with kidney disease (CMS/HCC) Expected: 10/05/2023 (Approximate), Expires: 09/28/2024 [facility] Area Work Phone: Comment on above: Expected: 10/05/2023 (Approximate), Expires: 09/28/2024 Start: 09-28-2023 FUV, Provider: Britney Yu, Status: Pen, Time: 10:15 AM FUV, Provider: Britney Yu, Status: Pen, Time: 10:15 AM [facility] 250 DO Work Phone: Start: 07-22-2023 FUV, Provider: Odilia Olsen, Status: Pen, Time: 10:00 AM FUV, Provider: Odilia Olsen, Status: Pen, Time: 10:00 AM [facility] 250 DO Work Phone: Start: 07-17-2023 Influenza vaccination Influenza Vacc ine (#1) [facility] Start: 06-26-2023 FUV, Provider: Lashell Osborn, Status: Pen, Time: 10:30 AM FUV, Provider: Lashell Osborn, Status: Pen, Time: 10:30 AM [facility] 250 DO Work Phone: Start: 06-22-2023 FUV, Provider: Britney Yu, Status: Pen, Time: 11:00 AM FUV, Provider: Britney Yu, Status: Pen, Time: 11:00 AM [facility] 250 DO Work Phone: Start: 06-08-2023 FUV, Provider: Britney Yu, Status: Pen, Time: 11:30 AM FUV, Provider: Britney Yu, Status: Pen, Time: 11:30 AM [facility] 250 DO Work Phone: Start: 05-14-2023 FUV, Provider: Britney Yu, Status: Pen, Time: 11:00 AM FUV, Provider: Britney Yu, Status: Pen, Time: 11:00 AM [facility] Work Phone: Start: 04-27-2023 MUGA, Provider: ANGEL RAVI HHVI NUCLEAR 01,[id number], Status: Pen, Time: 2:30 PM MUGA, Provider: MILAGROS HHVI NUCLEAR 01,[id number], Status: Pen, Time: 2:30 PM [facility] 250 DO Work Phone: Start: 02-24-2023 REST ONLY, Provider: MILAGROS LIZ NUCLEAR 01,[id number], Status: Pen, Time: 12:30 PM REST ONLY, Provider: MILAGROS LYLEI NUCLEAR 01,[id number], Status: Pen, Time: 12:30 PM [facility] 250 DO Work Phone: Start: 02-19-2023 STRESSNUC2, Provider : MILAGROS LYLEI NUCLEAR 01,[id number], Status: Pen, Time: 12:30 PM STRESSNUC2, Provider: MILAGROS LYLEI NUCLEAR 01,[id number], Status: Pen, Time: 12:30 PM [facility] 250 DO Work Phone: Start: 02-21-2022 COVID-19 Vaccine (2 - Pfizer series) COVID-19 Vaccine (2 - Pfizer series) [facility] Start: 2015 Pneumococcal Vaccine : 65+ Years (1 of 1 - PCV) Pneumococcal Vaccine: 65+ Years (1 of 1 - PCV) [facility] Start: 2000 Zoster Vaccines (1 of 2) Zoste r Vaccines (1 of 2) [facility] Start: 1972 DTaP/Tdap/Td Vaccine s (1 - Tdap) DTaP/Tdap/Td Vaccines (1 - Tdap) [facility] Start: 1969 Urine screening for protein Diabetes: Urine Protein Screening [facility] Start: 1968 Hepatitis C screening Hepatitis C [facility] Start: 1960 Diabetic foot examination Diabetes: Foot Exam [facility] Start: 1960 Glaucoma screening Diabetes: R etinopathy Screening [facility] Start: 1956 Pneumococcal Vaccine : 65+ Years (1 - PCV) Pneumococcal Vaccine: 65+ Years (1 - PCV) [facility] Start: 1950 Creatinine measurement Creatinine Le campos [facility] Start: 1950 Echocardiography Echocardiogram [facility] Start: 1950 Hemoglobin A1c measurement Rosa betes: Hemoglobin A1C [facility] Start: 1950 Lipid panel Lipid Panel [facility] Start: 1950 Medicare Annual Well ness Visit Medicare Annual Wellness Visit (AWV) [facility] Start: 1950 Potassium measurement Potassium Leve l [facility] Start: 1950 Screening for malign ant neoplasm of colon [facility] Patient Education [facility] Work Phone: Renal function 1999 panel - Serum or Plasma [facility] Renal function 1999 panel - Serum or Plasma [facility] Immunizations Immunization Date Immunization Notes Care Provider Fa lynn 12-08-2005 tetanus toxoid, adsorbed Osvaldo ole Devon DO Work Phone: [facility] Payers Date Payer Category Payer Self-pay [id number] 2022 Medicare [id number] 1959 Medicare [id number] 1950 Unknown [id number] 2.16.84 [id number] 1950 Unknown [id number] 2.16. 840.1.896508.3.579.2.356 1950 Unknown [id number] 2.16. 840.1.869905.3.579.2.356 1950 Unknown [id number] 2.16. 840.1.446013.3.579.2.356 1950 Unknown [id number] 2.16. 840.1.084438.3.579.2.356 1950 Unknown [id number] 2.16.8 40.1.490264.3.579.2.1068 1950 Unknown [id number] 2.16.8 40.1.633478.3.579.2.1068 1950 Unknown [id number] 2.16.8 40.1.675061.3.579.2.1068 1950 Unknown [id number] 2.16.8 40.1.910861.3.579.2.718 1950 Unknown [id number] 2.16.8 40.1.056506.3.579.2.718 1950 Unknown [id number] 2.16.84 0.1.498346.3.579.2.1259 1950 Unknown [id number] 2.16.8 40.1.695224.3.579.2.1244 1950 Unknown [id number] 2.16.8 40.1.214802.3.579.2.1244 Medicare [id number] 2.1 6.840.1.049917.19 Medicare [id number] 2.16. 840.1.488212.19 Medicare Medicare [id number] Unknown [id number] Unknown [id number] 2.16. [id number] Unknown [employer] Unknown [id number] 2.16.8 40.1.716104.3.579.2.531 Unknown [id number] 2.16.8 40.1.589550.3.579.2.531 Unknown [id number] 2.16.8 40.1.075840.3.579.2.531 Unknown [id number] 2.16.8 40.1.597411.3.579.2.531 Unknown [id number] 2.16.8 40.1.384259.3.579.2.531 Unknown [id number] 2.16.8 40.1.020320.3.579.2.531 Social History Date Type Detail Facility Start: 06-24-2023 End: 09-28-2023 Sex Assigned At [facility] Other Start: 06-24-2023 End: 09-28-2023 No alcohol use No alcohol use -[facility] 250 DO Work Phone: Start: 04-10-2021 End: 04-29-2023 Tobacco smoking status NHIS Never smoked tobacco (finding) [facility] Start: 1950 Sex Assigned At Male F [facility] Start: 04-29-2023 End: 09-25-2023 Tobacco use and exposure Smokeless tobacco non-user [facility] Work Phone: Start: 09-28-2023 End: 10-15-2023 Alcohol intake Lifetime non-drinker (finding) [facility] Work Phone: Start: 1950 Sex Assigned At [facility] on file [facility] Work Phone: Start: 09-18-2023 End: 10-15-2023 Exposure to SARS-CoV-2 (event) Not sure [facility] Start: 08-14-2024 End: 08-17-2024 Alcoholic beverage intake Current drinker of alcohol (finding) [facility] How often to you hav e a drink containing alcohol? Monthly or less [facility] How many standard drinks containing alcohol do you have on a typical day? 1 or 2 [facility] How often do you hav e 6 or more drinks on 1 occasion? Never [facility] Medical Equipment Procedure Code Equipment Code Equipment [...] Desired Activity /State Clinical Notes 12-26-2012 to 08-17-2024 Sb Osorio DO - 08/17/2024 12:30 PM EDT Note Date & Type Note Facility 08-17-2024 History of Presen t illness Narrative Images from the original note were not included. Chief Complaint Patient presents with Sleep Apnea Subjective Td Giraldo, 73 y.o., male being seen in Sleep Consultation at the request of Dr. Perez. He was diagnosed with sleep apnea about 20 years ago. He had a recalled machine and it was decided to be repeat tested. HPI The patient is wearing his machine nightly. He cannot sleep without the machine. He states that he wears it nightly and does not have issues with his machine. He states that he is getting 7-8 hours of sleep a night. He gets up about 6am to go to the bathroom. Sleep ND Patient Symptoms Snores: yes Wakes gasping for breath: No Dozes off if inactive: No Dozes off with activity: No Wakes a lot through the night: only once a night Witnessed episodes of apnea: Yes Is sleep restful or restorative: Yes Bedtime: 1130 pm Is it hard or easy to fall asleep: Easy Wake time: 7:30 am Takes naps: Very seldom Feels better after napping: Sleepwalk: No Sleeptalk: No Vivid Dreams: Yes Acts out dreams: No Sleep related hallucinations: No Sleep paralysis: No Cataplexy: No Restless Leg: Yes but due to neuropathy Kicking/Jerking at night: Yes TV on while sleeping: No Smoke before bed: No Caffeine within 3 hours before bed: No Past Medical History: Diagnosis Date 1 kidney Abnormal kidney function CHF (congestive heart failure) ([facility]) History of being hospitalized renal failure Hypertension ([facility]) Kidney stones Type 2 diabetes mellitus ([facility]) Past Surgical History: Procedure Laterality Date CHOLECYSTECTOMY 2013 GANGLION CYST EXCISION Left wrist KNEE SURGERY Right 05/20/2023 medial/lateral meniscectomy, medial/PFJ arthritis Family History Problem Relation Name Age of Onset Depression Father Irritable bowel syndrome Father Social History Tobacco Use Smoking status: Never Smokeless tobacco: Never Substance Use Topics Alcohol use: Yes Allergies: Iodinated contrast media General: No fever or chills HEENT: No nasal congestion or runny nose Pulmonary: No shortness of breath or cough Cardiovascular: No chest pain or palpitations GI: No nausea or vomiting : No dysuria or hematuria Musculoskeletal: No new aches or pains or muscle weakness Infectious: no recurrent fevers or infections Dermatologic: No rashes or skin lesions Neurologic: No new headaches or dizziness Vitals: 08/17/24 1241 BP: 130/84 Pulse: 52 SpO2: 97% Body mass index is 34.02 kg/m . weight: 265 lb Neurologic exam: General: obese, cooperative, pleasant Mallampati of approximately 4 macroglossia and scalloped tongue Mental status: Awake, alert to person, place and time. Recent and remote memory are intact. Attention and concentration are normal. Fund of knowledge is appropriate for level of education. HEENT: NC/AT Cranial nerves: CN II: Visual diane full to confrontation. No loss of vision CN III, IV, : pupils equal round and reactive to light. Extraocular movements intact. No ptosis present. CN V: Facial sensation is normal. CN VII: Full and symmetric facial movement. CN VIII: Hearing is normal CN IX and X: Palate elevates symmetrically. CN XI: Shoulder shrug is normal bilaterally. CN XII: Tongue is midline without atrophy or fasciculation. Speech: Clear and fluent no aphasia or dysarthria Pronator drift: Negative bilateral upper extremity Coordination: Intact, no signs of dysmetria Good finger to nose and rapid alternating movements Sensory: Sensation is intact to light, temperature and vibratory touch throughout four extremities. Motor: LUE 5/5 RUE 5/5 LLE 5/5 RLE 5/5 Tone: Physiologic, no tremor, bradykinesia or rigidity DTR: Bilateral Biceps 2/4 Bilateral BR 2/4 Bilateral Patellar 2/4 No spasticity Gait: Normal to casual gait Romberg's Negative Review and summary of old records: Assessment/Plan Diagnoses and all orders for this visit: EVY (obstructive sleep apnea) Hypersomnia Snoring Class 2 obesity due to excess calories with body mass index (BMI) of 36.0 to 36.9 in adult, unspecified whether serious comorbidity present 73-year-old male with a severe obstructive sleep apnea with an apnea-hypopnea index of 108 and an oxygen desaturation down to 80 percent. This is leading to daytime hypersomnolence and snoring. He has had a CPAP machine for approximately 20 years. He needs a new machine. He now has a new machine and is doing very well. He was titrated up to 11 cm of water and this appears to be working well for him. His [place] Sleepiness scale is a 1. His compliance data is fantastic he is using 100 percent of the time greater than 4 hours with an average nightly usage of 8 hours and 4 minutes and residual AHI of 3.9. Plan PSG was reviewed with him Titration study was reviewed with him Compliance data was reviewed and he is compliant as above [place] Sleepiness scale is a 1 The patient was counseled on proper sleep hygiene and adequate hours of sleep. The patient was counseled on the need for aggressive diet, exercise, and weight loss. The patient was counseled on the risks of stroke, OR, and sudden with EVY, along with the need for compliance with the CPAP/BiPAP treatment. The diagnosis was all discussed with the patient. All questions were answered and they agreed with the treatment plan. Patient will call if there are any new issues or questions. Pt has been fully educated on their diagnosis, treatment options, follow up plan, and return instructions Return to clinic: 1 year documented in this encounter [facility] 12-22-2023 Evaluation note Encounter Date Diagnosis Assessment [...] hyperglycemia, or diabetes medication issues. 6. Prescriptions: Grabilitye 3 cgm sent. 7. 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 [facility] with NO in the past was negative for obstructive CAD. NYHA 2, ACC B.# HTN# DM - Diabetes is managed at the [facility] diabetes center. # CKD - BMP 11/05/23 sCr 1.66 BUN 43. 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 # Obesity - Has lost > 30 lbs in the last year which has helped his HTN and BP control.PCP: Dr. Maureen Parham ([facility]), Dr. Gracia Perez (in [place]) Nuclear MPI in 2022 at [facility] - EF 31%. No ischemia or infarct.Echo in 2022 at [facility] - EF 25-30%MUGA done 04/27/23 at [facility] - EF 27%. EKG 03/27/21 - NSR 63 bpm, 1st degree AVB, iLBBB. EKG 11/18/23 in clinic - NSR 67 bpm, 1st degree AVB, IVCD, nonspecific T wave abnormalities. - BP elevated here today. But pt says his BP at home is 120/70s. See regimen changes below.- GDMT: Prior notes from Dr. Yu ([facility]) say he didn't tolerate Entresto due to [...] 1 month with BMP before that visit. [facility] Other 01-29-2024 Evaluation note* Encounter Date Diagnosis Assessment Notes Treatment Notes Treatment Clinical Notes Nov, Type 2 diabetes mellitus with other diabetic kidney complication, without long-term current use of insulin (ICD-10 - E11.29) Nov, Chronic congestive heart failure, unspecified heart failure type (ICD-10 - I50.9) Nov, CKD (chronic kidney disease) stage 2, GFR 60-89 ml/min (ICD-10 - N18.2) [facility] Other 01-04-2024 Evaluation note* Encounter Date Diagnosis [...] verbalized understanding and agreement with treatment plan. [employer] Other 01-03-2024 Evaluation note* Encounter Date Diagnosis [...] 2, ACC B. Had a LHC with [facility] in the past that was negative. 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 # Obesity - Has lost > 30 lbs in the last year which has helped his HTN and BP control.PCP: Dr. Maureen Parham ([facility]), Dr. Gracia Perez (in [place]) Nuclear MPI in 2022 at [facility] - EF 31%.Echo in 2022 at [facility] - EF 25-30%MUGA done 04/27/23 at [facility] - EF 27%. EKG 03/27/21 - NSR 63 bpm, 1st degree AVB, iLBBB. EKG 11/18/23 in clinic - NSR 67 bpm, 1st degree AVB, IVCD, nonspecific T wave abnormalities. -I reviewed his last [address] Britney Yu at [facility].- GDMT: Says that he didn't tolerate Entresto [...] 1 month with BMP before that visit. [facility] Other 12-06-2023 [facility] History of Present illness Narrative* [...] Problem List Diagnosis Date Noted Nonischemic cardiomyopathy ([facility]/HCC) 10/15/2023 Obesity, morbid ([facility]) 09/28/2023 Abnormal EKG 09/25/2023 Cardiomyopathy ([facility]/HCC) 09/25/2023 CHF (congestive heart failure), NYHA class II, acute on chronic, combined ([facility]) 09/25/2023 Diabetes mellitus with kidney disease ([facility]) 09/25/2023 First degree atrioventricular block 09/25/2023 Hyperlipidemia [...] months Britney Yu MD [facility] Work Phone: 1(561) 494-985411-30-2023 Instructions* Patient Instructions* Eric Corcoran MA - [...] Fall Prevention Education Given documented [facility] Work Phone: 1(334) 432-518411-13-2023 History of Present illness Narrative* Britney Yu [...] a diabetic no symptoms of hypoglycemia. 10. [employer] Myoview March 2023-normal perfusion LV appears dilated [...] Diagnosis Date Noted Abnormal EKG 09/25/2023 Cardiomyopathy ([facility]) 09/25/2023 CHF (congestive heart failure), NYHA class II, acute on chronic, combined ([facility]) 09/25/2023 Diabetes mellitus with kidney disease ([facility]) 09/25/2023 First degree atrioventricular block 09/25/2023 Hyperlipidemia 09/25/2023 Hypertensive heart and CKD, ESRD on dialysis ([facility]) 09/25/2023 Medication course changed 09/25/2023 Obstructive sleep apnea, adult 09/25/2023 Personal history of COVID-19 09/25/2023 Pre-operative cardiovascular examination 09/25/2023 Primary hypertension 09/25/2023 Type 2 diabetes mellitus without complication ([facility]) 09/25/2023 Assessment: Patient does not appear euvolemic Patient has chronic systolic left heart failure functional class II Patient has diabetes without hypoglycemia with kidney disease Test results were reviewed. Recommendations: 1. Continue Entresto if affordable otherwise go back to hydralazine 2. Follow-up as scheduled Follow up : 6 months Britney Yu MD [facility] Work Phone: 1(522) 680-845611-13-2023 Instructions* Patient Instructions* Davis Riggs MA - [...] time of your visit. documented [facility] Work Phone: 1(646) 554-720411-02-2023 Evaluation note* Encounter Date Diagnosis Assessment Notes Treatment Notes Treatment Clinical Notes Sep, Dietary counseling and surveillance (ICD-10 - Z71.3) see above Sep, Type 2 diabetes mellitus with diabetic chronic kidney disease (ICD-10 - E11.22) 1. Controlled, a Type 2 diabetes with A1c of 6.7% 09/07/23 2. Blood glucose levels according to Adjug 3 cgm download 09/04/23-09/17/23: Avg glucose 148. [...] or diabetes medication issues. 6. Prescriptions: Drug Hayes in OPHTHONIX/carmelita 3 cgm sent 09/17/23. Sample carmelita 3 [...] spent on education with Aleah DAVIS, RN. [facility] Other 06-02-2023 Evaluation note* Encounter Date Diagnosis Assessment Notes Treatment Notes Treatment Clinical Notes Apr, Type 2 diabetes mellitus with hyperglycemia, without long-term current use of insulin (ICD-10 - E11.65) [facility] Discussed switching from glipizide to ozempic. He prefers to wait at this time. Apr, Chronic congestive heart failure, unspecified heart failure type (ICD-10 - I50.9) Advised he complete the MUGA and adequately discuss symptoms with his Tourist Guide. He discussed that he does not have chest pain, dyspnea or significant edema. He has researched his EF and echo results. He does not feel that his symptoms are significant enough to proceed w pacer or defibrillator. Followup w Cardiology. Apr, Chronic kidney disease, stage III (moderate) (ICD-10 - N18.30) Reviewed notes and advised he follow Dr. Solis's recommendations. [facility] Other 06-01-2023 Evaluation note* Encounter Date Diagnosis [...] check iron studies B12 and folate level. [facility] Other 04-04-2023 Evaluation note* Encounter Date Diagnosis Assessment Notes Treatment Notes Treatment Clinical Notes Feb, Bronchitis (ICD-10 - J40) Bronchitis suspected due to wheezes, chest tightness, cough and/or impaired air movement. Medication prescribed. Avoid extreme heat and cold as this may exacerbate inflammation of airways. If wheezing, chest tightness and/or SOB occurs, go to ER. [facility] Other 03-22-2023 Evaluation note* Encounter Date Diagnosis [...] do a work-up to rule it out. [facility] Other 02-13-2023 Evaluation note* Encounter Date Diagnosis Assessment Notes Treatment Notes Treatment Clinical Notes Dec, Type 2 diabetes mellitus with other diabetic kidney complication, without long-term current use of insulin (ICD-10 - E11.29) Dec, Neuropathy of left lower extremity (ICD-10 - G57.92) [facility] Other 01-16-2023 Evaluation note* Encounter Date Diagnosis [...] Nov, Precancerous skin lesion (ICD-10 - L98.9) [facility] Other 01-05-2023 Evaluation note* Encounter Date Diagnosis [...] understanding and is agreeable to treatment plan. [facility] Other 10-24-2022 Evaluation note* Encounter Date Diagnosis [...] the ER for worsening symptoms or concerns. [facility] Other 07-10-2022 Evaluation note* Encounter Date Diagnosis Assessment Notes Treatment Notes Treatment Clinical Notes May, Hordeolum externum of right lower eyelid (ICD-10 - H00.012) [employer]de[employer] home care material was printed Use the eye ointment as prescribed. Apply warm compresses to your eye 2-3 times a day. Follow-up with your eye doctor if no improvement in 3 to 4 days. [facility] Other 06-15-2022 Evaluation note* Encounter Date Diagnosis [...] pain of right knee (ICD-10 - M25.561) [facility] Other 09-01-2020 History of Present illness Narrative* [...] Patient is no longer receiving care from [place] [facility]: [facility] care to [facility] [...] January, there has been further prolongation of SD interval and mild elongation of QRS duration. [...] 6. Will be a great candidate for [employer] Jardiance, will discuss at next visit -[facility] Caicedo DO Work Phone: [phone]) [phone] History of Present illness Narrative* Patient was [...] Patient is no longer receiving care from [place] [facility]: [facility] to [facility] [...] January, there has been further prolongation of SD interval and mild elongation of QRS duration. [...] 6. Will be a great candidate for [employer] Jardiance, will discuss at next visit [facility] 250 DO Work Phone: [phone]) 773-504503-10-2013 History of Present illness Narrative* 72 yo [...] on his current medications. No complaints today. -[facility] [employer] DO Work Phone: 1(963) 524-370402-10-2013 History of Present illness Qtcacyldo85 yo male here to establish care. Has a reported hx of CHF 10 years ago but states his EF has since recovered. He endorses weekly exercise (5x per week) with no issues. State's he very active. No chest pain, palpitations, presyncope/syncope, LE edema, PND, orthopnea. Checks his BP daily and statesits well-controlled on his current medications. No complaints today.[facility] [employer] DO Work Phone: chief complaint Narrative - ReportedADRIEL GIRALDO is being seen for a consultation for CHF- former [place] [facility] [employer] 250 DO Work Phone: chief complaint+Reason for visit [...] diabetes mellitus with diabetic chronic kidney disease [facility] Work Phone: chief complaint+Reason for visit Narrative* [...] Lumbar back pain EVY (obstructive sleep apnea) [facility] Work Phone: Chief complaint+Reason for visit Narrative* Chief Complaint referral for sleep c eusebia CC Heart Failure Follow Up Vertigo RENAL 6 MONTH F/U Reason for Visit Chronic kidney disea se, stage III (moderate) Irritable bowel syndrome with predominant constipation Lumbar back pain EVY (obstructive sleep apnea) Bilateral impacted cerumen BPV (benign positional vertigo) Tim hy kid w cr kid I-IV Chronic kidney disease, stage III (moderate) Complex renal cyst Nephrolithiasis Proteinuria Thrombocytopenia Type 2 diabetes mellitus with diabetic chronic kidney disease [facility] Work Phone: Evaluation noteNo InformationNort [employer] Other Evaluation noteNo assessment information available [facility] Work Phone: Evaluation note* Diagnosis Personality disorder (CMS/HCC)- Primary Unspecified personality disorder Obesity, morbid ([facility]/HCC) Morbid obesity Hypertensive heart and CKD, ESRD on dialysis ([facility]) CHF (congestive heart failure), NYHA class II, acute on chronic, combined ([facility]) Diabetes mellitus with kidney disease ([facility]) Mixed hyperlipidemia Primary hypertension Unspecified essential hypertension Medication course changed documented in this encounter [facility] Work Phone: Evaluation note* Diagnosis CHF (congestive heart failure), NYHA class II, acute on chronic, combined ([facility]) Primary hypertension Unspecified essential hypertension Nonischemic cardiomyopathy ([facility]/HCC) Other primary cardiomyopathies Medication course changed Hypertensive heart and CKD, ESRD on dialysis ([facility]) Mixed hyperlipidemia Diabetes mellitus with kidney disease ([facility]/HCC) documented in this encounter [facility] Work Phone: Evaluation note* Diagnosis Onset Date Resolution Status Rhinitis, allergic acute Tim hy kid w cr kid I-IV acu te Chronic kidney disease, stage III (moderate) acute Complex renal cyst acute Nephrolithiasis acute Proteinuria acute Thrombocytopenia acute Type 2 diabetes mellitus wit h diabetic chronic kidney disease acute [facility] Work Phone: Evaluation note* Diagnosis Onset Date [...] wit h diabetic chronic kidney disease acute [facility] Work Phone: Evaluation note* Diagnosis [...] mellitus wit h diabetic chronic kidney disease [facility] Work Phone: Evaluation note* Diagnosis Onset [...] mellitus wit h diabetic chronic kidney disease [facility] Work Phone: Evaluation note* Diagnosis Onset [...] wit h diabetic chronic kidney disease acute [facility] Work Phone: Evaluation note* Diagnosis Onset Date [...] pain acute EVY (obstructive sleep apnea) acute [facility] Work Phone: Evaluation note* Diagnosis Onset Date Resolution Status Chronic kidney disease, stage III (moderate) acute Irritable bowel syndrome with predominant constipation acute Lumbar back pain acute EVY (obstructive sleep apnea) acute Bilateral impacted cerumen a cute BPV (benign positional vertigo) acute Tim hy kid w cr kid I-IV acu te Chronic kidney disease, stage III (moderate) acute Complex renal cyst acute Nephrolithiasis acute Proteinuria acute Thrombocytopenia acute Type 2 diabetes mellitus wit h diabetic chronic kidney disease acute [facility] Work Phone: Evaluation note* Diagnosis Onset Date Resolution Status Tim hy kid w cr kid I-IV acu te Chronic kidney disease, stage III (moderate) acute Complex renal cyst acute Nephrolithiasis acute Proteinuria acute Secondary hyperparathyroidism acute Thrombocytopenia acute Type 2 diabetes mellitus wit h diabetic chronic kidney disease acute [facility] Work Phone: Evaluation note* Diagnosis EVY (obstructive sleep apnea) Obstructive sleep apnea (adult) (pediatric) Hypersomnia Hypersomnia, unspecified Snoring Other dyspnea and respiratory abnormality Class 2 obesity due to excess calories with body mass index (BMI) of 36.0 to 36.9 in adult, unspecified whether serious comorbidity present documented in this encounter [facility] Healthcare[facility] and physical note Author Rodney Victor [facility] October 21, 2023 11:23am Note Date/Time October 21, 2023 1 1:23am [facility] [address] [place] [address] Gastroenterology H&P Signed Patient: Td Giraldo MR#: [id number] : 1950 Acct:[id number] Age/Sex: 72 / M Adm Date: 3 Loc: Room: Type: [facility] Attending Dr: Rodney Victor MD Copies [...] Victor MD Documented By: Rodney Victor MD 10/21/231121 Signed By: <Electronically signed by Rodney Victor MD> 10/21/231122 [facility] Work Phone: History general Narrative - Reported* Type Description Date Medical History chronic renal failure Medical History hyperkalemia Medical History diabetes mellitus Medical History coronary artery disease Medical History sleep apnea Medical History hypertension Medical History obstructive uropathy Medical History CHF Medical History only has one kidney Medical History hypertension Surgical History left wrist ganglion cyst excisi on, volar [employer] Other Hisdjzc general Narrative - Reported* Type Description Date Medical History chronic renal failure Medical History hyperkalemia Medical History diabetes mellitus Medical History coronary artery disease Medical History sleep apnea Medical History hypertension Medical History obstructive uropathy Medical History CHF Medical History only has one kidney Medical History hypertension Surgical History left wrist ganglion cyst excisi on, volar Surgical History b/l cataracts [employer] Other history general Narrative - Reported* Type Description Date Medical History chronic renal failure Medical History hyperkalemia Medical History diabetes mellitus Medical History Congestive heart failure Medical History sleep apnea Medical History hypertension Medical History obstructive uropathy Medical History only has one kidney Surgical History left wrist ganglion cyst excisi on, volar Surgical History b/l cataracts [employer] Other Hisahzm general Narrative - Reported* Type Description Date [...] 06/2015 Hospitalization History ABNORMAL LABS/ DIALYSIS 07/2015 [facility] Other history general Narrative - Reported* Type [...] 06/2015 Hospitalization History ABNORMAL LABS/ DIALYSIS 07/2015 [facility] Other Hismqyp general Narrative - Reported* Type Description Date [...] 06/2015 Hospitalization History ABNORMAL LABS/ DIALYSIS 07/2015 [facility] Other Hisxiel general Narrative - Reported* Type Description Date [...] 06/2015 Hospitalization History ABNORMAL LABS/ DIALYSIS 07/2015 [facility] Other History of Present illness Narrative* The [...] medication regimen. He denies medication side effects. [facility] 250 DO Work Phone: History of Present [...] medication regimen. He denies medication side effects. -[facility] DO Work Phone: History of Present [...] medication regimen. He denies medication side effects. [facility] Work Phone: Hospital Discharge instructions [...] problems. -Follow up with PCP. -Office number [phone].[facility] Work Phone: Reason for referral (narrative)* Consultation (Routine) - Authorized Specialty Diagnoses / Procedures Referred By Adan reddy Referred To Contact Cardiology Diagnoses CHF (congestive heart failure), NYHA class II, acute on chronic, combined (CMS/HCC) Primary hypertension Procedures Follow Up In Cardiology Britney Yu MD [address] [place] [address] [address] Britney Yu MD [address] [place] [id number] Referral ID Status Reason Start Date Expiration Date V isits Requested Visits Authorized [id number] Authorized 09/28/2023 09/27/2024 1 1 [facility] Work Phone: Reason for referral (narrative)* Consultation (Routine) - Authorized Specialty Diagnoses / Procedures Referred By Adan reddy Referred To Contact Cardiology Diagnoses CHF (congestive heart failure), NYHA class II, acute on chronic, combined (CMS/HCC) Primary hypertension Nonischemic cardiomyopathy (CMS/HCC) Procedures Follow Up In Cardiology Brtiney Yu MD [address] [address] Britney Yu MD 254 [facility] [address] [place] [address] Referral ID Status Reason Start Date Expiration Date V isits Requested Visits Authorized [id number] Authorized 10/15/2023 10/14/2024 1 1 [facility] Work Phone: [facility] for [facility] Narrativenutrition referral discussionNofulton medical center- [facility] [employer] Other Summary Purpose Family History Unknown Family [...] Unknown Diabetes mellitus Unknown Not Specified Unknown Relationship Condition Age at Onset Recorded Date/T evita Not Specified No pertinent family history Unknown father Unknown Heart disease Unknown Diabetes mellitus Unknown mother Unknown Advance Directives Advance Directive Response Recorded Date/ Time Advance Directives No July 11:15am Advance Directive Response Recorded Date/ Time Advance Directives No July 10:15am Reason for Referral Reason 12/16/22 [place] off [place]. Previously saw provider at [facility] ortho Diagnosis 1 Recurrent pain of ri ght knee (M25.561) Referral Organization [facility] Sirigen eusebia Referring Provider First Name Jun Referring Provider Last Name Kun Referring Provider Specialty [facility] [employer] Referred Organization [facility] Referred Provider Ritchie Desai Referred Address ,[place], [place],[address] Referred Provider Specialty Orthopedic S urgery Referral Priority Routine Referral Appointment Date 2022-12-16 General Notes Becca Boykin 11:40:22 AM >received today, notes locked, attachments made, referral faxed P2P Becca Boykin 12/12/2022 09:25:38 AM >faxed first attempt letter Becca Boykin 12/12/2022 01:42:44 PM >received fax back that pt is scheduled with INPATIENT AUDITOR Becca Gordillo 12/17/2022 08:00:55 AM >faxed first request for consult notes Becca Boykin 2022 12:58:52 PM >faxed second request for notes Becca Boykin 12/26/2022 05:01:54 PM >received notes, sent for review. Reason 12/26/22 [place] office. pt has data on previous echos, etc Diagnosis 1 Left heart failure w ith left ejection fraction greater than 40 percent (I50.1) Referral Organization [facility] Sirigen C eusebia Referring Provider First Name Jun Referring Provider Last Name Kun Referring Provider Specialty [facility] [employer] Referred Organization [facility] enter Referred Provider Lashell Osborn Referred Address [address],[place], [place],[address] Referred Provider Specialty Internal Med icine Referral Priority Routine Referral Appointment Date 2022-12-26 General Notes Becca Boykin 01:12:21 PM >pt was originally referred by Edie Morse and has an appt with [facility] on 12/26/22 Becca Boykin 12/29/2022 05:08:53 PM >faxed first request for consult notes Becca Boykin 12/30/2022 01:56:43 PM >received notes, sent for review. Closing referral at this time. Reason 02/04/23 Pt has re cent labs. copies will also be scanned in Diagnosis 1 CKD (chronic kidney disease) stage 2, GFR 60-89 ml/min (N18.2) Referral Organization [facility] [employer] eusebia Referring Provider First Name Jun Referring Provider Last Name Kun Referring Provider Specialty [facility] [employer] Referred Organization [facility] Nephrology Referred Provider Tj Solis Referred Address [address] ,[place],[address] Referred Provider Specialty Nephrology Referral Priority Routine Referral Appointment Date 2023-02-04 General Notes Becca Boykin 12:30:23 PM >received today, sent P2P Becca Boykin 12/05/2022 12:53:06 PM >waitng to see if can schedule since pt, said we are not in his network. TE was sent Becca Boykin 12/05/2022 01:19:03 PM >per availity website no auth is required Reason 12/11/22 [place] office preferred - needs nail care and possible toenail removal Diagnosis 1 Diabetic peripheral neuropathy (E11.42) Referral Organization [facility] Sirigen eusebia Referring Provider First Name Jun Referring Provider Last Name Kun Referring Provider Specialty [facility] [employer] Referred Organization [facility] Referred Provider JAGDEEP GIBSON Referred Address ,[place],[address] Referred Provider Specialty Podiatry - S urgical Chiropody Referral Priority Routine Referral Appointment Date 2022-12-11 General Notes Becca Boykin 11:23:27 AM >received today, faxed referral Becca Boykin 12/05/2022 01:14:47 PM >patient provided appt date Becca Boykin 12/12/2022 01:27:01 PM >faxed first request for consult notes Becca Boykin 12/15/2022 12:08:55 PM >received notes and sent for review. closing referral at this time. Clinical Notes [id number] Reason 12/10/22 yearly sk in exam Diagnosis 1 Precancerous skin le edith (L98.9) Referral Organization [facility] eusebia Referring Provider First Name Jun Referring Provider Last Name Kun Referring Provider Specialty Family [facility] Referred Organization Dermatology Kaelyn christine Referred Provider Tigre Russell Referred Address [address],[place],[address] Referred Provider Specialty Dermatology Referral Priority Routine Referral Appointment Date 2022-12-10 General Notes Becca Boykin 10:49:22 AM >received today, notes locked, attachments made, referral faxed Becca Boykin 12/15/2022 11:00:10 AM >faxed first attempt letter Becca Boykin 12/15/2022 02:09:31 PM >received notes and sent for review Reason CLOSED evaluate Diagnosis 1 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) Referral Organization [facility] [place] Referring Provider First Name Edie Referring Provider Last Name Lito Referring Provider Specialty Nurse Pracmaureen guerrero Referred Organization [facility] Nephrology Cli osvaldo Vargas Referred Provider Tj Solis Referred Address [address],[place],[address] Referred Provider Specialty Nephrology Referral Priority Routine General Notes Becca Boykin 11:14:39 AM >received today Becca Boykin 11/20/2022 11:15:11 AM >waiting for notes to be locked, and [facility] website is currently down to complete PA. will check back Becca Boykin 11/21/2022 09:08:45 AM >[facility] website is still down. will check back Becca Boykin 11/24/2022 09:17:04 AM >[facility] site still down Becca Boykin 11/25/2022 08:54:58 [...] unspecified heart failure type (I50.9) Referral Organization [facility] [place] Referring Provider First Name Edie Referring Provider Last Name Luciaacher Referring Provider Specialty Nurse Pract itioner Referred Organization [facility] enter Referred Provider Hawa Diallo Referred Address [address],[place], [place] Referred Provider Specialty Cardiac Surg niurka Referral Priority Routine Referral Appointment Date 2022-12-26 General Notes Becca Boykin 11:08:29 AM >received today, waiting for notes to be locked, and [facility] website is down for Prior Auth. will check back Becca Boykin 11/21/2022 09:08:07 AM >[facility] website is still down at this time. Becca Boykin 11/24/2022 09:16:51 AM >[facility] site still down Becca Boykin 11/25/2022 08:54:58 AM >site up, and no auth is required. attachment made, referral faxed Becca Boykin 12/02/2022 09:47:35 AM >faxed first attempt letter Becca Boykin 12/03/2022 01:52:54 PM >received fax with appt date and time Reason CLOSED- changed [place] jason providers evaluate and treat Diagnosis 1 Other chronic pain ( G89.29) Diagnosis 2 Pain in right knee ( M25.561) Referral Organization [facility] [place] Referring Provider First Name Edie Referring Provider Last Name Luciaacher Referring Provider Specialty Nurse Pract itioner Referred Organization [facility] Referred Provider Tad Boucher Referred Address [address],[place],[address] Referred Provider Specialty Orthopedic S urgery Referral Priority Routine General Notes Becca Boykin 11:16:24 AM >received today, waiting for notes to be locked, and [facility] website is currently down at the moment. will folllow up Becca Boykin 11/21/2022 09:09:03 AM >[facility] website is still currently down. will check back Becca Boykin 11/24/2022 09:17:20 AM >[facility] site is still down Becca Boykin 11/25/2022 [...] dilated LVEF 31%. * I reviewed prior [place] [facility] note dated August 25, 2022. * [...] Patient is no longer receiving care from [place] [facility]: [facility] to [facility] [...] reports that usually calibrated yearly by the [place] [facility],will no longer be seen in the [...] dilated LVEF 31%. * I reviewed prior [place] [facility] note dated August 25, 2022. * [...] Patient is no longer receiving care from [place] [facility]: [facility] care to [facility] [...] with diabetic chronic kidney disease Chief Complaint RENAL 6 MONTH F/U Discuss R Knee Reason for Visit Tim hy kid w cr kid I-IV Chronic kidney disease, stage III (moderate) Complex renal cyst Nephrolithiasis Proteinuria Secondary hyperparathyroidism Thrombocytopenia Type 2 diabetes mellitus with diabetic chronic kidney disease Additional Source Comments INFORMATION SOURCE (unrecogn ized section and content) DATE CREATED AUTHOR 05/12/2018 [facility] DATE CREATED AUTHOR AUTHOR'S ORGANIZ ATION 11/16/2020 [facility] DATE CREATED AUTHOR AUTHOR'S ORGANIZ ATION 01/08/2023 [facility] dical Specialist DATE CREATED AUTHOR AUTHOR'S ORGANIZ ATION 04/26/2023 [facility] DATE CREATED AUTHOR AUTHOR'S ORGANIZ ATION 05/15/2023 [facility] DATE CREATED AUTHOR AUTHOR'S ORGANIZ ATION 05/15/2023 [facility] DATE CREATED AUTHOR AUTHOR'S ORGANIZ ATION 05/23/2023 [facility] DATE CREATED AUTHOR AUTHOR'S ORGANIZ ATION 08/21/2023 [facility] DATE CREATED AUTHOR AUTHOR'S ORGANIZ ATION 04/21/2024 [facility] DATE CREATED AUTHOR AUTHOR'S ORGANIZ ATION 08/19/2024 [facility] dical Specialists EPIC DATE CREATED AUTHOR AUTHOR'S ORGANIZ ATION 08/19/2024 [facility] (unrecognized sect ion and content) No Status [...] NYHA class II, acute on chronic, combined ([facility]/HCC) Primary hypertension Procedures Follow Up In Cardiology Britney Yu MD [address] [facility] [address] [place] [address] Britney Yu MD [address] [facility] [address] [place] [address] Referral ID Status Reason Start Date Expiration Date V isits Requested Visits Authorized [id number] Authorized 09/28/2023 09/27/2024 1 1 Reason Comments Sleep Apnea Care Teams (unrecognized sec tion and content) [...] Active Tj Solis MD Attending Provider Active 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 Relationship Specialty Start Date End Date Jun Perez MD [address] [place] [address] PCP - General 12/26/22 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 Relationship Specialty Start Date End Date Jun [...] Status: Inactive Member Role Status Dates Jun Perze MD Primary Care Provider Active Start: January [...] Member Role Status Dates Jose Yu MD Tourist Guide Active Jun Perez MD Primary Care Provider [...] April 27, 2024 End: April 27, 2024 Team Status: Active Member Role Status Dates Jun Perez MD Primary Care Provider Active Start: June 29, 2024 Tj Solis MD Attending Provider Active Start : June 29, 2024 Team Status: Inactive Member Role Status Dates Jun Perez MD Primary Care Provider Active Start: July 04, 2024 End: July 04, 2024 Tj Solis MD Attending Provider Active Start : July 04, 2024 End: July 04, 2024 Team Status: Inactive Member Role Status Dates Jun Perez MD Primary Care Provide r, Attending Provider Active Start: August 08, 2024 End: August 08, 2024 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 Relationship Specialty Start Date End Date Jun Perez MD [address] [place] [address] PCP - General Family Medicine 04/29/23 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 Relationship Specialty Start Date End Date Jun Perez MD [address] [place] [id number] PCP - General Family Medicine 04/29/23 Goals (unrecognized section and content) Goals may [...] BE BASED ON THE PRIMARY CLINICAL RECORDS. [facility] [employer] [facility]. provides no warranty or guarantee of the accuracy or completeness of information in this document.
[2024-09-28 09:28] LABS: Chol HDL Ratio 2.9; Cholesterol 103 mg/dL (<=200); HDL Cholesterol 35 mg/dL (40-60); Triglycerides 148 mg/dL (<=150); VLDL CHOLESTEROL 29.6 mg/dL
== END 2024-09-28 08:43 | disposition home or self-care (01) ==
LOC: LAB 08:42
PROVIDERS: PCP Family Medicine
DX: E78.5 Hyperlipidemia, unspecified (principal); E11.22 Type 2 diabetes mellitus with diabetic chronic kidney disease
CPT/HCPCS: 36415; 80061

== ENCOUNTER 2024-10-18 13:55 | Outpatient (OUT) | payer MEDICARE, SELFPAY ==
[2024-10-18 15:07] LABS: Anion Gap 11.4; BUN Creatinine Ratio 15.3; Calcium 8.9 mg/dL (8.5-10.1); Carbon Dioxide 28.8 mmol/L (21.0-32.0); Chloride 107 mmol/L (98-107); Estimated GFR (African America 46 (>=60 mL/min/1.73m^2); Estimated GFR (Non-African Ame 38 (>=60 mL/min/1.73m^2); Glucose 118 mg/dL (74-106); Potassium 4.2 mmol/L (3.5-5.1); Sodium 143 mmol/L (136-145)
== END 2024-10-18 13:56 | disposition home or self-care (01) ==
LOC: LAB 13:58
PROVIDERS: PCP Family Medicine; Visit Provider Student in an Organized Health Care Education/Training Program
DX: I42.8 Other cardiomyopathies (principal); I10 Essential (primary) hypertension
CPT/HCPCS: 36415; 80048

== ENCOUNTER 2024-12-26 09:42 | Outpatient (OUT) | payer MEDICARE, SELFPAY ==
--- OUTSIDE RECORDS SUMMARY | 2024-12-26 09:55 | XMS_ITS | CCD ---
Author Organization [facility] Care Team Providers Care Senior Accounts Payable Clerk Name Role Phone NO REFERRING DR Unavailable Unavailable [employer] Unavailable Unavailable DISCH, JNO Unavailable Unavailable Phyllis Reyes Unavailable Mary Bryson Unavailable Jun Perez Unavailable Unavailable Unavailable Edie Morse Unavailable Jun Perez Unavailable MayoTj Unavailable MAYOTJ Attending Unavailable MAYO TJ Consulting Unavailable MAYOARAUL Admitting Unavailable Jorge, [...] MD Jun Perez Primary Care Provider Mapus, GIS PROFESSOR Tondra K Attending Provider MD Tj Solis Attending Provider Jun Perez MD Primary Care Provider Jun Perez MD Primary Care Provider Unavailable MD Jun Perez Primary Care Provider Mapus, GIS PROFESSOR Tondra K Attending Provider MD Tj Solis Attending Provider MD Rodney Victor Attending Provider MD Britney Yu Attending Provider Jose Yu Unavailable MD Jun Perez Primary Care Provider Mapus, GIS PROFESSOR Tondra K Attending Provider MD Jun Perez Primary Care Provider Mapus, GIS PROFESSOR Tondra K Attending Provider MD Jose Yu Attending Provider MD Jun Perez Primary Care Provider BRITNEY YU Attending Unavailable JUN PEREZ Primary Care Unavailable BRITNEY YU Attending Unavailable BRITNEY YU Referring Unavailable JUN PEREZ Primary Care Unavailable Jun Perez MD Primary Care Provider Jun Perez Primary Care Unavailable Mapus, Tondra K Admitting Unavailable Mapus, Tondra K Attending Unavailable Jose Yu Attending Jun Douglas Primary Care Unavailable Jose Yu Admitting UnaJun Soliman Admitting Unavailable Perez, Jun E Primary Care Unavailable Jun Perez Attending Unavailable BONY GIBSON Attending Unavailable SB OSORIO Attending Unavailable BONY GIBSON Attending Unavailable Allergies Allergy Classification Reported Allergen(s) Allergy Type Date of Onset Reaction(s) Facility (20 sources) Contrast media Propensity to adverse reactions Unknown [employer] Other (8 sources) Contrast media Allergy to substance (finding) Shortness of breath [facility] 250 DO Work Phone: (6 sources) Angiotensin Converting Enzyme (Elisa) Inhibitors; Translations: [ELISA Inhibitors] Allergy to drug (finding) [facility] 250 DO Work Phone: (1 source) Contrast media; Translations: [Contrast Dye] Propensity to adverse reactions to drug (disorder) [facility] (17 sources) Gadolinium-Cont aining Contrast Medi; Translations: [Gadolinium-Con taining Contrast Medi] Allergy to substance 1 Anaphylaxis [facility] (20 sources) Iodinated Contrast Media; Translations: [IODINATED CONTRAST MEDIA] Allergy to substance 1 Shortness of breath, Anaphylaxis [facility] (1 source) semaglutide Drug allergy (disorder) 4 [facility] Repository Medications Current Medications Medication Drug Class(es) Dates Sig (Normalized) Sig (Original) 0.25 MG, 0.5 MG Dose 3 ML semaglutide 0.68 MG/ML Pen Injector [Ozempic] (3 sources) Start: 09-17-2023 inject 0.5 mg by subcutaneous injection every week Ozempic (0.25 or 0.5 MG/DOSE) 2 MG/3ML 0.5mg Subcutaneous once weekly Sep, Active ascorbic acid 250 mg oral tablet (9 sources) Vitamin C take 1 tablet by [...] 5 mg by mouth at bedtime Atorvastatin 10 mg tablet Active 5 MG PO Bedtime October 21, 2023 12:00am Start: 10-21-2023 take 5 mg by mouth at bedtime Atorvastatin Active 5 MG PO Bedtime October 21, 2023 1:00am atorvastatin (Li pitor) 10 MG tablet 1 (one) time each day at the same time. Active take 0.5 tablet by m outh once daily Atorvastatin Calcium 10 MG 1/2 tab Orally [...] Blood-Glucose Meter (Accu-Ch ek Guide Glucose Meter) [facility] (8 sources) Start: 04-18-2024 Blood-Glucose Meter (Accu-Chek Guide Glucose Meter) [facility] Active 0 .Route April 18, 2024 8:37am As directed Use with Accu Chek Guide test strips to check blood glucose Start: 04-18-2024 Blood-Glucose Meter (Accu-Chek Guide Glucose Meter) [facility] Active 0 .Route 1 April 18, 2024 9:37am As directed Use with Accu Chek Guide test strips to check blood glucose Start: 04-18-2024 End: 04-18-2024 Blood-Glucose Meter (Accu-Ch ek Guide Glucose Meter) [facility] Discontinued 0 .Route April 17, 2024 11:00pm April 18, 2024 8:38am As directed Start: 04-18-2024 End: 04-18-2024 Blood-Glucose Meter (Accu-Ch ek Guide Glucose Meter) [facility] Discontinued 0 .Route April 18, 2024 12:00am April 18, 2024 9:38am As directed carvedilol 25 mg oral tablet (20 sources) alpha-Adrenergic Michelle, beta-Adrenergic Michelle Start: 01-05-2024 End: 08-18-2024 take 1 tablet by mouth twice daily at mealtime Carvedilol 25 mg tablet Active 25 MG PO Twice daily 180 90 August 18, 2024 10:43am must administer with a meal/food Start: 10-21-2023 End: 01-05-2024 take 1 tablet by mouth twice daily Carvedilol 12.5 mg tablet Discontinued 12.5 MG PO Twice daily October [...] with food Orally Twice a day Active cephalexin 500 mg oral capsule (2 sources) Cephalosporin Antibacterial Start: 11-22-2024 End: 12-02-2024 take 1 capsule by mouth in the morning, then take 1 capsule by mouth in the evening, then take 1 capsule by mouth at bedtime, then take 1 capsule by mouth three times daily cephalexin (Keflex) 500 MG capsule Indications: Abscess of toe, right Take 1 capsule (500 mg) by mouth in the morning and 1 capsule (500 mg) in the evening and 1 capsule (500 mg) before bedtime. Do all this for 10 days. Take one tablet by mouth three times daily. 30 capsule 11/22/2024 12/02/2024 Active cholecalciferol 0.05 mg oral capsule (20 sources) Vitamin D Start: 10-21-2023 take 1 capsule by mouth once daily Cholecalciferol (Vitamin D3) (Vitamin D3) 50 mcg (2,000 unit) Capsule Active 4000 UNIT PO Daily October 21, 2023 12:00am take 1 capsule by mouth in the m orning cholecalciferol (Vitamin D-3) 50 MCG (1999 UT) capsule Take 2,000 Units by mouth [...] (20 sources) Sodium-Glucose Cotransporter 2 Inhibitor Start: 09-29-2024 take 1 tablet by mouth once daily Empagliflozin (Jardiance) 25 mg tablet Active 25 MG PO Daily September 29, 2024 9:55am Start: 01-11-2024 End: 09-29-2024 Empagliflozin (Jardiance) 25 mg tablet Discontinued 0 PO Daily January 11, 2024 11:40am September 29, 2024 9:56am 12.5 mg (1/2 tab) orally daily; Start: 10-21-2023 End: 01-11-2024 take 1 tablet by mouth once daily Empagliflozin (Jardiance) 25 mg tablet Discontinued 25 MG PO Daily January 05, 2024 12:04pm January 11, 2024 11:43am Start: 09-17-2023 take 10 mg by mouth once daily Jardiance 25 MG 1/2 tablet Orally Once a day for 90 days stop jardiance 10mg dose Sep, Active Start: 09-07-2023 take 1 tablet by tanvi every twenty-four hours Jardiance 10 MG 1 [...] tablet (20 sources) Sulfonylurea Start: 05-25-2024 Glipizide 5 mg tablet Active 0 .ROUTE .COMPLEX 180 May 25, 2024 7:25am TAKE 1 TABLET TWICE DAILY Start: 01-05-2024 End: 05-25-2024 take 1 tablet by mouth twice daily 30 minutes before breakfast Glipizide 5 mg tablet Discontinued 5 MG PO Twice daily January 05, 2024 12:00am May 25, 2024 7:25am FreeTextSi tablet 30 minutes before breakfast Orally [...] tablet (20 sources) Arteriolar Vasodilator Start: 01-08-2024 End: 09-08-2024 Hydralazine 25 mg tablet Active 37.5 MG PO Every 8 hours 405 90 September 08, 2024 11:52am Start: 01-08-2024 take 37.5 mg by mout h every eight hours Hydralazine Active 37.5 MG PO Every 8 hours January 08, 2024 2:39pm Start: 01-05-2024 End: 01-08-2024 take 1.5 tablets by mouth three times daily Hydralazine 25 mg tablet Discontinued MG PO January 05, 2024 12:00am January 08, 2024 1:41pm FreeTextSi.5 tabs Orally Three times a day; Note: Source Status: Taking; Provider: Aimee Garcia ( ) Start: 09-28-2023 End: 09-27-2024 take 1.5 tablets [...] day Active lisinopril 2.5 mg oral tablet (19 sources) Angiotensin Converting Enzyme Inhibitor Start: 3 End: 3 lisinopril 2.5 MG tablet 04/17/2023 Active losartan potassium 50 mg oral tablet (20 sources) Angiotensin 2 Receptor Michelle Start: 4 Losartan 50 mg tablet Active 0 .ROUTE .COMPLEX 90 May 24, 2024 10:50am TAKE 1 TABLET ONE TIME DAILY (STOP LISINOPRIL) Start: 01-05-2024 End: 01-11-2024 take 1 tablet by mouth once daily Losartan Discontinued 25 MG PO Daily January 05, 2024 1:07pm January 11, 2024 12:43pm FreeTextSi tablet Orally Once a day; Note: Source Status: StartStop Lisinopril; Refills: 1; Qty: 90 Tablet; Provider: Robyn Zimmer Start: 12-30-2023 End: 05-24-2024 take 1 tablet by mouth once daily Losartan 50 mg tablet Discontinued 50 MG PO Daily January 11, 2024 11:41am May 24, 2024 10:50am FreeTextSi tablet Orally Once a day; Note: [...] fabien Nystatin (1 source) Polyene Antifungal Start: 4 take 1 mL by mouth three times daily Nystatin Active 5 ML PO Three times daily August 08, 2024 12:00am swish and spit Nystatin 100,000 unit/mL suspension (1 source) Start: 4 take 1 mL by mouth three times daily Nystatin 100,000 unit/mL suspension Active 5 ML PO Three times daily August 07, 2024 11:00pm swish and spit saw palmetto (Serenoa repens) 1000 MG capsule (9 sources) saw palmetto (Serenoa repens) 1000 MG capsule 1 capsule. Active Saw Freeport 1000 MG (18 sources) take 1000 mg by mouth twice daily Saw Freeport 1000 MG as directed Orally BID Active Saw Freeport 450 MG (6 sources) take 450 mg by mouth three times daily Saw Freeport 450 MG as directed Orally three times a day Active Saw Freeport (15 sources) Start: take 1 capsule by mouth three times daily at mealtime Saw Freeport 450 mg Capsule Active 450 MG PO Three times daily October 21, 2023 12:00am give with food (meal/snack) Start: 10-21-2023 take 450 mg by mouth three times daily at mealtime Saw Freeport Active 450 MG PO Three times daily October 21, 2023 1:00am give with food (meal/snack) Start: 10-21-2023 take 450 mg by mouth three times daily at mealtime Saw Freeport Active 450 MG PO Three times daily [...] Start: 02-17-2023 take 1 capsule by mo [facility] every eight hours Benzonatate 200 MG 1 capsule Orally Three times a day for 10 day(s) Feb, Active gabapentin 100 mg oral capsule (20 sources) Anti-epileptic Agent Start: 10-21-2023 End: 07-04-2024 take 1 tablet by mouth three times daily Gabapentin 100 mg Tablet Discontinued 100 MG PO Three times daily October 21, 2023 12:00am July 04, 2024 10:04am take 1 capsule by mo ut every [...] 0 Active linaclotide 0.072 mg oral capsule (4 sources) Guanylate Cyclase-C Agonist Start: 04-13-2024 End: 07-04-2024 take 1 capsule by mouth once daily Linaclotide (Linzess) 72 mcg capsule Discontinued 72 MCG PO Daily April 12, 2024 11:00pm July 04, 2024 10:04am meclizine hydrochloride 25 mg oral tablet (4 sources) Antiemetic Start: 04-27-2024 End: 07-04-2024 take 1 tablet by mouth twice daily as needed Meclizine 25 mg tablet Discontinued 25 MG PO Twice daily as needed for motion sickness April 26, 2024 11:00pm July 04, 2024 10:04am meloxicam 7.5 mg oral tablet (12 sources) Nonsteroidal Anti-inflammatory Drug Start: 04-13-2024 End: 04-27-2024 take 1 tablet by mouth once daily Meloxicam 7.5 mg tablet Discontinued 7.5 MG PO Daily April 12, 2024 11:00pm April 27, 2024 11:04am methylPREDNISolone 125 mg injection (13 sources) Corticosteroid Start: 01-01-2024 End: 01-01-2024 Methylprednisolone Sodium Succ 125 mg recon soln Discontinued 60 MG IM Every morning January 01, 2024 12:00am January 01, 2024 9:14am Start: 01-01-2024 End: 01-01-2024 inject 60 mg by intramuscular injection once daily in the morning Methylprednisolone Sodium Succ Discontinued 60 MG IM Every morning 1 January 01, 2024 1:00am January 01, 2024 [...] CKD, ESRD on dialysis ([facility]) , CHF (congestive heart failure), NYHA class II, acute on chronic, combined ([facility]) , Primary hypertension Take 1 tablet by mouth 2 times a day. 56 tablet 0 09/29/2023 10/15/2023 Discontinued (Dose adjustment) Start: 06-08-2023 take 1 tablet by tanvi th twice daily Entresto 24-26 MG Oral Tablet TAKE 1 TABLET BY MOUTH TWICE A DAY Quantity: 180 Refills: 3 Ordered: 08-Jun-2023 Britney uY MD Start : 08-Jun-2023 Active take 1 tablet by tanvi th every twelve hours Entresto 49-51 MG 1 tablet Orally Twice a day Not-Taking/PRN Saw Freeport 1000 MG Oral Capsule (8 sources) Saw Freeport 100 0 MG Oral Capsule TAKE DIRECTED. Quantity: 0 Refills: 0 Ordered: 26-Dec-2022 DO Active triamcinolone acetonide 40 mg/ml injectable suspension (20 sources) Corticosteroid Start: 04-30-2022 Kenalog-40 15 Apr, 2022 20 mg Start: 04-30-2022 Kenalog-40 Apr, 40 mg Start: 07-29-2021 Kenalog -40 mg Jul, 40 mg Problems Active Problems Problem Classification Problem Date Documented Date Episodic/Chronic Administrative/social admission (12 sources) Dietary counseling and surveillance; Translations: [Patient encounter status] Episodic Calculus of urinary tract (20 sources) Kidney stone; Translations: [Calculus of kidney] Onset: 3 Episodic Chronic kidney disease (20 sources) Chronic kidney disease stage 2; Translations: [Chronic kidney disease, stage 2 (mild)] Onset: 5 Chronic Chronic obstructive pulmonary disease and bronchiectasis (1 source) Bronchitis, not specified as acute or chronic Episodic Coagulation and hemorrhagic disorders (20 sources) Thrombocytopenic disorder; Translations: [Thrombocytopenia, unspecified] 01-05-2024 Chronic Conditions associated with dizziness or vertigo (5 sources) Benign paroxysmal positional vertigo; Translations: [Benign paroxysmal vertigo, unspecified ear] Onset: 5 05-09-2024 Episodic Conduction disorders (5 sources) First degree atrioventricular block; Translations: [First degree atrioventricular block] Onset: 3 09-25-2023 Chronic Congestive heart failure; nonhypertensive (20 sources) Congestive heart failure stage C; Translations: [Congestive heart failure, unspecified] Onset: 5 Chronic Deficiency and other anemia (14 sources) Anemia [...] diseases] Episodic Joint disorders and dislocations; trauma-related (9 sources) Derangement of right knee; Translations: [Unspecified internal derangement of right knee] Onset: 3 04-29-2023 Chronic Mycoses (6 sources) Candidiasis of mouth; Translations: [Candidal stomatitis] 08-09-2024 Episodic Nephritis; nephrosis; renal sclerosis (9 sources) Atrophy of right kidney; Translations: [Atrophy of kidney (terminal)] Onset: 5 04-30-2023 Chronic Osteoarthritis (20 sources) Osteoarthritis of right knee joint; Translations: [Unilateral primary osteoarthritis, right knee] Onset: 2 Resolved: 2 Chronic Other aftercare (5 sources) Treatment changed; Translations: [Long-term (current) use of other medications] Onset: 3 09-28-2023 Episodic Other aftercare (11 sources) Long-term current use of insulin; Translations: [terminal clerk (current) use of insulin] Episodic Other bone disease and musculoskeletal deformities (1 source) Disorder of bone, unspecified; Translations: [Disorder of bone, unspecified] Onset: 3 Episodic Other connective tissue disease (1 source) Tendinopathy of peroneal tendon; Translations: [Other specified disorders of synovium and tendon, other site] 08-09-2024 Episodic Other connective tissue disease (1 source) Other specified disorders of synovium and tendon, other site; Translations: [Other enthesopathy of ankle and tarsus] 08-08-2024 Episodic Other connective tissue disease (2 sources) Pain of toe of right foot; Translations: [Pain in right toe(s)] 11-22-2024 Episodic Other diseases of kidney and ureters (3 sources) Secondary hyperparathyroidism; Translations: [Secondary hyperparathyroidism of renal origin] 07-04-2024 Chronic Other diseases of kidney and ureters (2 sources) Secondary hyperparathyroidism of renal origin; Translations: [Secondary hyperparathyroidism (of renal origin)] 07-04-2024 Chronic Other diseases of kidney and ureters (10 sources) Cyst of kidney, acquired; Translations: [Cystic kidney disease, unspecified] Episodic Other diseases of kidney and ureters (11 sources) Complex renal cyst; Translations: [Cyst of kidney, acquired] 01-04-2024 Episodic Other ear and sense organ disorders (3 sources) Impacted cerumen; Translations: [Impacted cerumen, bilateral] 05-09-2024 Episodic Other ear and sense organ disorders (1 source) Impacted cerumen, bilateral; Translations: [Impacted cerumen] 04-27-2024 Episodic Other gastrointestinal disorders (4 sources) Irritable bowel syndrome characterized by constipation; [...] metabolic disorders (4 sources) Body mass index (BMI) 36.0-36.9, adult; Translations: [Body Mass Index 36.0-36.9, adult] Chronic Other nutritional; endocrine; and metabolic disorders (5 sources) Body mass index 30+ - obesity; [...] Chronic Other nutritional; endocrine; and metabolic disorders (9 sources) Obese class I; Translations: [Obesity (BMI [...] tissue, unspecified Episodic Other upper respiratory disease (11 sources) Allergic rhinitis; Translations: [Allergic rhinitis, unspecified] [...] 09-25-2023 Chronic Residual codes; unclassified (6 sources) Obstructive sleep apnea syndrome; Translations: [Obstructive sleep apnea (adult) (pediatric)] 04-13-2024 Chronic Residual codes; unclassified (2 sources) Obstructive sleep apnea (adult) (pediatric); Translations: [Obstructive sleep apnea (adult)(pediatric)] 04-12-2024 Chronic Residual codes; unclassified (2 sources) Hypersomnia; Translations: [Hypersomnia, unspecified] 08-17-2024 Chronic Residual codes; unclassified (16 sources) Transient alteration of awareness; Translations: [Transient alteration of awareness] 04-10-2021 Episodic Skin and subcutaneous tissue infections (5 sources) Cellulitis of unspecified toe; Translations: [Abscess of toe of right foot] Episodic Spondylosis; intervertebral disc disorders; other back problems (20 sources) Chronic low back pain; Translations: [Lumbago with sciatica, left side] Episodic Transient cerebral ischemia (9 sources) Transient global amnesia; 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] Onset: 4 08-14-2024 Chronic Unclassified (1 source) Unknown / UNK(Unknown) Onset: 3 Unclassified (1 source) CHRN KIDNEY DISEASE STG 3 UNSP; Translations: [CHRN KIDNEY DISEASE STG 3 UNSP] Onset: Past or Other Problems Problem Classification Problem Date Documented Da te Episodic/Chronic Chronic kidney disease (13 sources) Chronic kidney disease; Translations: [Chronic kidney disease, stage III (moderate)] Inflammation; infection of eye (except that caused by tuberculosis or sexually transmitteddisease) (1 source) Hordeolum externum right lower eyelid Onset: 05-25-2022 Resolved: 05-25-2022 Episodic Other aftercare (2 sources) Other 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 float operator (current) drug therapy; Translations: [Other detention (current) drug therapy] Onset: 09-25-2023 Episodic Other connective tissue disease (1 source) Pain in left hand Onset: 04-30-2022 Resolved: 04-30-2022 Episodic Residual codes; unclassified (9 sources) Lack of awareness; Translations: [Unspecified symptoms and signs involving cognitive functions and awareness] Onset: 08-14-2024 08-14-2024 Episodic Unclassified (8 sources) Never smoked tobacco; Translations: [Never a smoker] Unclassified (1 source) Chronic cough R05.3 Unclassified (2 sources) Onset: 09-28-2023 Resolved: 10-15-2023 09-28-2023 Viral infection (1 source) COVID-19 Results Test Name Value Interpretation Reference Range Facility Cholesterol in LDL Calc [Mas s/Vol]on 09-28-2024 Cholesterol in LDL [Mass/Vol] Cholesterol in LDL [Mass/volume] in Serum or Plasma by calculation [facility] Comment on above: <100 mg/dl [id number] 0-129 mg/dl NEAR OR ABOVE [id number] mg/dl BORDERLINE [id number] mg/dl HIGH>190 mg/dl VERY HIGH Cholesterol in VLDL Calc [Ma ss/Vol]on 09-28-2024 Cholesterol in VLDL [Mass/Vol] Cholesterol in VLDL [Mass/volume] in Serum or Plasma by calculation [facility] Laboratory - Chemistry and C hemistry - challengeon 09-28-2024 Cholesterol [Mass/Vol] 103 mg/dL <=200 Fi [facility] Cholesterol in HDL [Mass/Vol] 35 mg/dL Low 40-60 [facility] Comment on above: > or =60 mg/dl - LOW CARDIOVASCULAR RISK<40 mg/dl - HIGH CARDIOVASCULAR RISK Triglyceride [Mass/Vol] 148 mg/dL <=150 F [facility] Serum or plasma total choles terol/high density lipoprotein (HDL) cholesterol mass darwin 09-28-2024 Cholesterol.total/Stephanie sterol in HDL [Mass ratio] Serum or plasma total cholesterol/high density lipoprotein (HDL) cholesterol mass [facility] Comment on above: 3.3 - 4.4 LOW RISK4. 4 - 7.1 AVERAGE RISK7.1 - 11.0 MODERATE RISK>11.0 HIGH RISK Erythrocyte distribution wid th Auto (RBC) [Ratio]on 06-29-2024 Erythrocyte distribution width (RBC) [Ratio] 14.6 % 11.0-15.0 [facility] Estimated glomerular filtrat ion rate (GFR) non- Americanon 06-29-2024 GFR/1.73 sq M.predicted among non-blacks MDRD (S/P/Bld) [Vol rate/Area] 41 mL/min/{1.73_m2} Low >=60 [facility] Hematocrit Auto (Bld) [Volum e fraction]on 06-29-2024 Hematocrit (Bld) [Volume fraction] 45.8 % 42.0-54.0 [facility] Hemoglobin [Mass/volume] in Bloodon 06-29-2024 Hemoglobin (Bld) [Mass/Vol] 14.6 g/dL 14.0-18.0 [facility] Laboratory - Chemistry and C hemistry - challengeon 06-29-2024 Albumin [Mass/Vol] 3.7 g/dL 3.4-5.0 [facility] Calcium [Mass/Vol] 8.9 mg/dL 8.5-10.1 [facility] Chloride [Moles/Vol] 104 mmol/L 98-107 [facility] CO2 [Moles/Vol] 24.1 mmol/L 21.0-32.0 [facility] Creatinine [Mass/Vol] 1.66 mg/dL High 0.70-1.30 [facility] GFR/1.73 sq M.predicted MDRD (S/P/Bld) [Vol rate/Area] 50 mL/min/{1.73_m2} Low >=60 [facility] Glucose [Mass/Vol] 203 mg/dL High 74-106 [facility] Magnesium [Mass/Vol] 2.1 mg/dL 1.8-2.4 [facility] Potassium [Moles/Vol] 4.3 mmol/L 3.5-5.1 [facility] Sodium [Moles/Vol] 138 mmol/L 136-145 [facility] Urate [Mass/Vol] 7.0 mg/dL 3.5-7.2 [facility] Urea nitrogen [Mass/Vol] 26.0 mg/dL High 7.0-18.0 [facility] Urea nitrogen/Creatinine [Mass ratio] 15.7 mg/mg [facility] Bilirubin Ql (U) Negative NEGATIVE [facility] Glucose (U) [Mass/Vol] mg/dL Abnormal NEGATIVE Fi [facility] Ketones Ql (U) Negative NEGATIVE [facility] pH (U) 5.5 [pH] 5.0-9.0 [facility] Specific gravity (U) [Rel density] 1.020 1.005-1.025 [facility] Urobilinogen Qn (U) 0.2 {Dolores'U}/dL 0.2-1.0 [facility] Laboratory - Specimen inform ationon 06-29-2024 Appearance (U) CLEAR CLEAR [facility] Color (U) YELLOW YELLOW [facility] Laboratory - Urinalysison Leukocyte esterase Test strip Ql (U) Negative NEGATIVE [facility] Mucus Ql (Urine sed) NONE SEEN NONE SEEN [facility] Nitrite Ql (U) Negative NEGATIVE [facility] Protein (U) [Mass/Vol] 36.2 mg/dL High <=11.9 [facility] Protein Ql (U) 30 mg/dL Abnormal NEG/TRACE [facility] Leukocytes [#/volume] correc ritu for nucleated erythrocytes in Blood by Automated counon 06-29-2024 WBC corrected for nucl RBC Auto (Bld) [#/Vol] 5.3 10 3/uL 4.0-11.0 [facility] MCH Auto (RBC) [Entitic mass ]on 06-29-2024 MCH (RBC) [Entitic mass] 27.4 pg 25.9-34.0 [facility] MCHC Auto (RBC) [Mass/Vol]on 06-29-2024 MCHC (RBC) [Mass/Vol] 31.9 g/dL 29.9-35.2 [facility] MCV Auto (RBC) [Entitic vol] on 06-29-2024 MCV (RBC) [Entitic vol] 86.1 fL 80.0-94.0 F [facility] No Panel Informationon 06-29 25-Hydroxy Vitamin D Total 60.0 ng/mL [facility] Comment on above: <20 ng/mL Vit D defi cient20-<30 ng/mL Vit D [id number] ng/mL Vit D sufficient>100 ng/mL Potential Toxicity Parathyroid Hormone (Intact) 67 pg/mL Abnormal 15-65 [facility] Comment on above: Performed at: [place] [id number] Director: Robin Mead PhD, Phone: [phone] Phosphorus Level 3.4 mg/dL 2.6-4.7 [facility] Urine Bacteria TRACE #/HPF Abnormal NONE SEEN [facility] Urine Culture Reflexed NO [facility] Urine Occult Blood Negative NEGATIVE [facility] Urine Other Casts NONE SEEN #/LPF NONE SEEN [facility] Urine Other Crystals None Seen #/HPF None Seen [facility] Urine Random Creatinine 87.30 mg/dL 20.00-300.0 0 [facility] Urine RBC NONE SEEN #/HPF 0-2 [facility] Urine Squamous Epithelial Cells RARE #/LPF NONE/RARE [facility] Urine WBC NONE SEEN #/HPF NONE SEEN [facility] Platelet mean volume Auto (B ld) [Entitic vol]on 06-29-2024 Platelet mean volume (Bld) [Entitic vol] 10.6 fL 9.5-13.5 [facility] Platelets Auto (Bld) [#/Vol] on 06-29-2024 Platelets (Bld) [#/Vol] 157 10 3/uL 150-450 [facility] RBC Auto (Bld) [#/Vol]on RBC (Bld) [#/Vol] 5.32 10 6/uL 4.70-6.10 [facility] Serum or plasma anion gap de terminationon 06-29-2024 Anion gap [Moles/Vol] 14.2 mmol/L [facility] Urine protein/creatinine rat ioon 06-29-2024 Protein/Creatinine (U) [Ratio] 0.41 [facility] HbA1c HPLC (Bld) [Mass fract ion]on 03-24-2024 HbA1c (Bld) [Mass fraction] 6.6 % [facility] No Panel Informationon 03-24 Bedside Glucose 110 [facility] ECH echo transthoracicon [facility] echo transthoracic [facility] [place] [address] Echocardiogram Signed Patient: Td Giraldo MR#: [id number] : 1950 Acct:[id number] Age/Sex: 73 / M ADM Date: 03/07/24 Loc: Room: Type: [facility] Attending Dr: Jose Yu MD Ordering Provider: Jose Yu MD Date of Service: 03/07/24 [facility] echo transthoracic: I42.8 - Other cardiomyopathies Copies to: MD Td Tolentino Alejandra CRYSTAL Patient Location: : 1950 Gender: Male (MM/DD/YYYY) [...] 03/07/24948 Signed By: Jose Yu MD 03/07/242036 [facility] Estimated glomerular filtrat ion rate (GFR) non- Americanon 01-08-2024 GFR/1.73 sq M.predicted among non-blacks MDRD (S/P/Bld) [Vol rate/Area] 41 mL/min/{1.73_m2} >=60 [facility] Laboratory - Chemistry and C hemistry - challengeon 01-08-2024 Calcium [Mass/Vol] 8.7 mg/dL 8.5-10.1 [facility] Chloride [Moles/Vol] 105 mmol/L 98-107 [facility] CO2 [Moles/Vol] 29.2 mmol/L 21.0-32.0 [facility] Creatinine [Mass/Vol] 1.67 mg/dL 0.70-1.30 [facility] GFR/1.73 sq M.predicted MDRD (S/P/Bld) [Vol rate/Area] 49 mL/min/{1.73_m2} >=60 [facility] Glucose [Mass/Vol] 161 mg/dL 74-106 [facility] Potassium [Moles/Vol] 5.0 mmol/L 3.5-5.1 [facility] Sodium [Moles/Vol] 141 mmol/L 136-145 [facility] Urea nitrogen [Mass/Vol] 32.0 mg/dL 7.0-18.0 [facility] Urea nitrogen/Creatinine [Mass ratio] 19.2 mg/mg [facility] Serum or plasma anion gap de terminationon 01-08-2024 Anion gap [Moles/Vol] 11.8 mmol/L [facility] Automated epithelial cells c ount in urine sediment (number/area)on 01-04-2024 Epithelial cells Auto (Urine sed) [#/Area] RARE #/LPF NONE/RARE [facility] Automated leukocytes count i n urine sediment (number/area)on 01-04-2024 WBC Auto (Urine sed) [#/Area] NONE SEEN #/HPF 0-2 [facility] Automated urine specific gra vity by refractometryon 01-04-2024 Specific gravity Refractometry automated (U) [Rel density] 1.025 1.005-1.025 [facility] Bilirubin Auto test strip (U ) [Mass/Vol]on 01-04-2024 Bilirubin (U) [Mass/Vol] Negative NEGATIVE [facility] Color Auto (U)on 01-04-2024 Color (U) LT. YELLOW YELLOW [facility] Erythrocyte distribution wid th Auto (RBC) [Ratio]on 01-04-2024 Erythrocyte distribution width (RBC) [Ratio] 15.2 % 11.0-15.0 [facility] Estimated glomerular filtrat ion rate (GFR) non- Americanon 01-04-2024 GFR/1.73 sq M.predicted among non-blacks MDRD (S/P/Bld) [Vol rate/Area] 47 mL/min/{1.73_m2} >=60 [facility] Hematocrit Auto (Bld) [Volum e fraction]on 01-04-2024 Hematocrit (Bld) [Volume fraction] 46.3 % 42.0-54.0 [facility] Hemoglobin [Mass/volume] in Bloodon 01-04-2024 Hemoglobin (Bld) [Mass/Vol] 14.1 g/dL 14.0-18.0 [facility] Iron binding capacity [Mass/ volume] in Serum or Plasmaon 01-04-2024 Iron binding capacity [Mass/Vol] 291.0 ug/dL 250.0-450.0 [facility] Iron saturation [Mass Fracti on] in Serum or Plasmaon 01-04-2024 Iron saturation [Mass fraction] 27.8 % [facility] Ketones Auto test strip (U) [Mass/Vol]on 01-04-2024 Ketones (U) [Mass/Vol] Negative NEGATIVE [facility] Laboratory - Chemistry and C hemistry - challengeon 01-04-2024 Albumin [Mass/Vol] 3.5 g/dL 3.4-5.0 [facility] Calcium [Mass/Vol] 8.7 mg/dL 8.5-10.1 [facility] Chloride [Moles/Vol] 106 mmol/L 98-107 [facility] CO2 [Moles/Vol] 26.1 mmol/L 21.0-32.0 [facility] Creatinine [Mass/Vol] 1.46 mg/dL 0.70-1.30 [facility] Ferritin [Mass/Vol] 88.0 ng/mL 26.0-388.0 [facility] GFR/1.73 sq M.predicted MDRD (S/P/Bld) [Vol rate/Area] 57 mL/min/{1.73_m2} >=60 [facility] Glucose [Mass/Vol] 118 mg/dL 74-106 [facility] Iron [Mass/Vol] 81.0 ug/dL 65.0-175.0 [facility] Magnesium [Mass/Vol] 2.3 mg/dL 1.8-2.4 [facility] Potassium [Moles/Vol] 4.7 mmol/L 3.5-5.1 [facility] Sodium [Moles/Vol] 140 mmol/L 136-145 [facility] Urate [Mass/Vol] 6.4 mg/dL 3.5-7.2 [facility] Urea nitrogen [Mass/Vol] 31.0 mg/dL 7.0-18.0 [facility] Urea nitrogen/Creatinine [Mass ratio] 21.2 mg/mg [facility] Leukocytes [#/volume] correc ritu for nucleated erythrocytes in Blood by Automated counon 01-04-2024 WBC corrected for nucl RBC Auto (Bld) [#/Vol] 5.4 10 3/uL 4.0-11.0 [facility] MCH Auto (RBC) [Entitic mass ]on 01-04-2024 MCH (RBC) [Entitic mass] 26.5 pg 25.9-34.0 [facility] MCHC Auto (RBC) [Mass/Vol]on 01-04-2024 MCHC (RBC) [Mass/Vol] 30.5 g/dL 29.9-35.2 [facility] MCV Auto (RBC) [Entitic vol] on 01-04-2024 MCV (RBC) [Entitic vol] 87.0 fL 80.0-94.0 [facility] Mucus LM Ql (Urine sed)on Mucus Ql (Urine sed) NONE SEEN NONE SEEN [facility] No Panel Informationon 01-04 Parathyroid Hormone (Intact) 21 pg/mL 15-65 [facility] Comment on above: Performed at: [address] [id number] Director: Robin Mead PhD, Phone: [phone] Phosphorus Level 4.1 mg/dL 2.6-4.7 [facility] Platelet mean volume Auto (B ld) [Entitic vol]on 01-04-2024 Platelet mean volume (Bld) [Entitic vol] 12.0 fL 9.5-13.5 [facility] Platelets Auto (Bld) [#/Vol] on 01-04-2024 Platelets (Bld) [#/Vol] 106 10 3/uL 150-450 [facility] Protein Auto test strip (U) [Mass/Vol]on 01-04-2024 Protein (U) [Mass/Vol] 30 mg/dL NEG/TRACE [facility] RBC Auto (Bld) [#/Vol]on RBC (Bld) [#/Vol] 5.32 10 6/uL 4.70-6.10 [facility] Serum or plasma anion gap de terminationon 01-04-2024 Anion gap [Moles/Vol] 12.6 mmol/L [facility] Specific gravity Auto test s trip (U) [Rel density]on 01-04-2024 Specific gravity (U) [Rel density] CLEAR CLEAR [facility] Urine bacteria detection by automated methodon 01-04-2024 Bacteria Auto Ql (U) NONE SEEN #/HPF NONE SEEN [facility] Urine glucose measurement by test strip (mass/volume)on 01-04-2024 Glucose Test strip (U) [Mass/Vol] >=1000 mg/dL NEGATIVE [facility] Urine hemoglobin detection b y automated test stripon 01-04-2024 Hemoglobin Auto test strip Ql (U) Negative NEGATIVE [facility] Urine nitrite detection by a utomated test stripon 01-04-2024 Nitrite Auto test strip Ql (U) Negative NEGATIVE [facility] Urine sediment leukocyte cou nt by microscopy (number/high power field)on 01-04-2024 WBC LM.HPF (Urine sed) [#/Area] NONE SEEN #/HPF NONE SEEN [facility] Urobilinogen Auto test strip (U) [Mass/Vol]on 01-04-2024 Urobilinogen Qn (U) 0.2 {Dolores'U}/dL 0.2-1.0 [facility] pH Auto test strip (U)on pH (U) 5.5 [pH] 5.0-9.0 [facility] A1C HEMOGLOBINon 12-22-2023 HbA1c (Bld) [Mass fraction] 7.7 % [facility] Other Glucose - FINGER STICKon Glucose [Mass/Vol] 137 mg/dL [facility] Other HbA1c (Bld) [Mass fraction]o n 12-22-2023 [facility] Calcium [Mass/volume] in Ser um or PlasmaOrdered By: Britney Yu on 11-05-2023 Calcium [Mass/Vol] 9.1 mg/dL 8.6-10.3 [facility] Carbon dioxide, total [Moles /volume] in Serum or PlasmaOrdered By: Britney Yu on 11-05-2023 CO2 [Moles/Vol] 22.5 mmol/L 21.0-31.0 [facility] Chloride [Moles/volume] in S niya or PlasmaOrdered By: Britney Yu on 11-05-2023 Chloride [Moles/Vol] 104 mmol/L 98-107 [facility] Creatinine [Mass/volume] in Serum or PlasmaOrdered By: Britney Yu on 11-05-2023 Creatinine [Mass/Vol] 1.66 mg/dL 0.70-1.30 [facility] Glucose [Mass/volume] in Ser um or PlasmaOrdered By: Britney Yu on 11-05-2023 Glucose [Mass/Vol] 354 mg/dL 70-100 [facility] Comment on above: ADA recommended refe rence rangeRandom Glucose Reference Range is dependent on time and content of last meal. Glucose of more than 200 mg/dL in a nonstressed, ambulatory subject supports the diagnosis of Diabetes Mellitus. No Panel InformationOrdered By: Britney Yu on 11-05-2023 Estimated GFR (CKD-EPI) 43.529 mL/Min [facility]acy Creatinine Clearance (Chem N/A [facility] Potassium [Moles/volume] in Serum or PlasmaOrdered By: Britney Yu on 11-05-2023 Potassium [Moles/Vol] 4.5 mmol/L 3.5-5.1 [facility] Serum or plasma anion gap de terminationOrdered By: Britney Yu on 11-05-2023 Anion gap [Moles/Vol] 14.0 mmol/L 6.0-15.0 [facility] Sodium [Moles/volume] in Ser um or PlasmaOrdered By: Britney Yu on 11-05-2023 Sodium [Moles/Vol] 136 mmol/L 136-145 [facility] Urea nitrogen [Mass/volume] in Serum or PlasmaOrdered By: Britney Yu on 11-05-2023 Urea nitrogen [Mass/Vol] 43 mg/dL 7-25 [facility] Calcium [Mass/volume] in Ser um or PlasmaOrdered By: Britney Yu 10-26-2023 Calcium [Mass/Vol] 9.5 mg/dL 8.6-10.3 [facility] Carbon dioxide, total [Moles /volume] in Serum or PlasmaOrdered By: Britney Yu 10-26-2023 CO2 [Moles/Vol] 25.0 mmol/L 21.0-31.0 [facility] Chloride [Moles/volume] in S niya or PlasmaOrdered By: Britney Yu 10-26-2023 Chloride [Moles/Vol] 109 mmol/L 98-107 [facility] Creatinine [Mass/volume] in Serum or PlasmaOrdered By: Britney Yu 10-26-2023 Creatinine [Mass/Vol] 1.59 mg/dL 0.70-1.30 [facility] Glucose [Mass/volume] in Ser um or PlasmaOrdered By: Britney Yu on 10-26-2023 Glucose [Mass/Vol] 206 mg/dL 70-100 [facility] Comment on above: ADA recommended refe rence rangeRandom Glucose Reference Range is dependent on time and content of last meal. Glucose of more than 200 mg/dL in a nonstressed, ambulatory subject supports the diagnosis of Diabetes Mellitus. No Panel InformationOrdered By: Britney Yu on 10-26-2023 Estimated GFR (CKD-EPI) 45.838 mL/Min [facility] Creatinine Clearance (Chem N/A [facility] Potassium [Moles/volume] in Serum or PlasmaOrdered By: Britney Yu on 10-26-2023 Potassium [Moles/Vol] 5.1 mmol/L 3.5-5.1 [facility] Serum or plasma anion gap de terminationOrdered By: Britney Yu on 10-26-2023 Anion gap [Moles/Vol] 13.1 mmol/L 6.0-15.0 [facility] Sodium [Moles/volume] in Ser um or PlasmaOrdered By: Britney Yu on 10-26-2023 Sodium [Moles/Vol] 142 mmol/L 136-145 [facility] Urea nitrogen [Mass/volume] in Serum or PlasmaOrdered By: Britney Yu on 10-26-2023 Urea nitrogen [Mass/Vol] 28 mg/dL 7-25 [facility] Glucose Glucometer (BldC) [M ass/Vol]Ordered By: Rodney Victor on 10-21-2023 Glucose [Mass/Vol] 155 mg/dL [facility] Comment on above: Random Glucose Refer ence Range is dependent on time and content of last meal. Glucose of more than 200 mg/dL in a nonstressed, ambulatory subject supports the diagnosis of Diabetes Mellitus. Glucose - FINGER STICKon Glucose [Mass/Vol] 215 mg/dL [facility] Other Tobacco Screening.on 023 Fall risk assessment a) No falls within the last year -[facility] 250 DO Work Phone: Tobacco use status [facility] b) No M P-[facility] 250 DO Work Phone: Office Visit [...] Patient is no longer receiving care from MD clinic: Transferred care to [facility] with new patient assessment by Dr. Osborn [...] January, there has been further prolongation of MN interval and mild elongation of QRS duration. [...] a diabe (more content not included)... Normal [facility] Tobacco Screening.on 023 Tobacco use status [facility] b) No M P-[place] [address] DO Work Phone: [facility] MUGA SCAN INJECTIONon [facility] MUGA SCAN INJECTION Patient Name: ADRIEL GIRALDO STUDY: MUGA Performing facility: [facility], [address] [place] [address], [address] Provider: Odilia Mackenzie RN, BIOCHEMISTRY TECHNICIAN PCP: Dr. Sam Perez Supervising provider: Jemima Gastelum MD INDICATION: Cardiomyopathy HISTORY: Gender: M; Age: 72 y/o ; Height: 0 cm; Weight: 131.322665 kg. High Cholesterol; HTN; Denies smoking. COMPARISON: Previous nuclear testing completed [id number] MPI EF=31% at [facility]. Previous echo testing completed [id number] EF= 25-30% at [facility]. ACCESSION NUMBER(S): [id number]; [id number] ORDERING CLINICIAN: ODILIA MACKENZIE TECHNIQUE: The patient received an IV injection of 3 ml of stannous pyrophosphate (PYP) using the in-vivo method of labeling red blood cells. After 15 minutes the patient received another IV injection of 26.1 mCi of Technetium 99m pertechnetate. Planar images of the left ventricle were obtained in the CHINESE 45, Lt Lateral and anterior projections. FINDINGS: The right ventricle was normal. The left ventricle was mildly dilated in size. Regional wall motion was global. Global resting LVEF was abnormal- at 27%. IMPRESSION: Normal resting right ventricular function. Abnormalresting left ventricular function. Left ventricular ejection fraction is 27%. No previous study available for comparison Electronically signed by: JEMIMA GASTELUM MD Normal [facility] No Panel Informationon 04-27 [facility] Work Phone: IMMUNOFIXATION (EMILY), URINEo n 04-15-2023 EMILY Interpretation:U Comment Normal [facility] Comment on above: Result Comment: No m onoclonality detected. Performed By: #### I MUNFXU #### [facility] [address] [place] [address] [address] Santos Mchugh PROTEIN ELECTROPHERESIS URIN E RANDOMon 04-15-2023 Albumin, U 66.6 % Normal [facility] Comment on above: Performed By: #### U PTE #### [facility] [address] [place] [address] Dr. Santos Mchugh Alpha-1 Globulin U 4.9 % Normal [facility] Comment on above: Performed By: #### U PTE #### [facility] [address] [place] [address] [address] Santos Mchugh Alpha-2 Glubulin U 7.5 % Normal [facility] Comment on above: Performed By: #### U PTE #### [facility] [address] [place] [address] [address] Santos Mchugh Beta Globulin, U 12.9 % Normal [place] Comment on above: Performed By: #### U PTE #### [facility] [address] [place] [address] [address] Santos Mchugh Gamma Globulin U 8.1 % Normal [facility] Comment on above: Performed By: #### U PTE #### [facility] [address] [place] [address] [address] Santos Mchugh M-Tavo, % Not Observed Normal Not Observed [facility] Comment on above: Performed By: #### U PTE #### [facility] [address] [place] [address] [address] Santos Mchugh PDF . Normal [facility] Comment on above: Performed By: #### U PTE #### [facility] [address] [place] [address] Dr. Santos Mchugh Please note: Comment Normal [facility] Comment on above: Result Comment: Prot ein electrophoresis scan will follow via computer, mail, or energy assistant delivery. Performed By: #### U PTE #### [facility] [address] [place] [address] Dr. Santos Mchugh Protein (U) [Mass/Vol] 64.1 mg/dL Normal Not Estab. Th e [facility] Comment on above: Performed By: #### U PTE #### [facility] [address] [place] [address] Dr. Santos Mchugh FREE LIGHT CHAINS PLUS RATIO on 04-14-2023 Free [place] Lt Chains,S 49.2 mg/L Critically high 3.3-19.4 [facility] Comment on above: Performed By: #### F REELIT #### [facility] [address] [place] [address] Dr. Santos Mchugh Free Lambda Lt Chains,S 19.3 mg/L Normal 5.7-26.3 [facility] Comment on above: Performed By: #### F REELIT #### [facility] [address] [place] [address] Dr. Santos Mchugh [place]/Lambda Ratio, S 2.55 Critically high 0.26-1.65 [facility] Comment on above: Performed By: #### F REELIT #### [facility] [address] [place] [address] Dr. Santos Mchugh IMMUNOFIXATION (EMILY), SERUMo n 04-14-2023 IMMUNOFIXATION RESULT Comment Normal [facility] Comment on above: Result Comment: No m onoclonality detected. Performed By: #### U AMIC #### [facility] [address] [place] [address] Dr. Santos Mchugh Immunoglobulin A, Qn, Serum 186 mg/dL Normal 61-437 [facility] Comment on above: Performed By: #### U AMIC #### [facility] [address] [place], [place] [id number] Dr. Santos Mchugh Immunoglobulin G, Qn, Serum 854 mg/dL Normal 603-1613 [facility] Comment on above: Performed By: #### U AMIC #### [facility] [address] [place] [address] [address] Santos Mchugh Immunoglobulin M, Qn, Serum 62 mg/dL Normal 15-143 [facility] Comment on above: Performed By: #### U AMIC #### [facility] [address] [place] [address] [address] Santos Mchugh PROTEIN ELECTROPHERESISon Albumin [Mass/Vol] 3.5 g/dL Normal 2.9-4.4 [facility] Comment on above: Performed By: #### P RTELEC #### [facility] [address] [place] [address] Dr. Santos Mchugh Albumin/Globulin [Mass ratio] 1.1 {ratio} Normal 0.7-1.7 [facility] Comment on above: Performed By: #### P RTELEC #### [facility] [address] [place] [address] Dr. Santos Mchugh Orfxc-7-Sjynrzok 0.2 g/dL Normal 0.0-0.4 [place] Comment on above: Performed By: #### P RTELEC #### [facility] [address] [place] [address] Dr. Santos Mchugh Iauml-3-Syxacvcq 0.9 g/dL Normal 0.4-1.0 [facility] Comment on above: Performed By: #### P RTELEC #### [facility] [address] [place] [address] Dr. Santos Mchugh Beta Globulin 1.2 g/dL Normal 0.7-1.3 [facility] Comment on above: Performed By: #### P RTELEC #### [facility] [address] [place] [address] Dr. Santos Mchugh Gamma Globulin 0.8 g/dL Normal 0.4-1.8 [facility] Comment on above: Performed By: #### P RTELEC #### [facility] [address] [place] [address] [address] Santos Mchugh Globulin (S) [Mass/Vol] 3.1 g/dL Normal 2.2-3.9 [facility] Comment on above: Performed By: #### P RTELEC #### [facility] [address] [place] [address] [address] Santos Mchugh M-Tavo Comment: Normal Not Observed [facility] Comment on above: Result Comment: SPE shows asymmetrical beta. Performed By: #### P RTELEC #### [facility] [address] [address] [address] Santos Mchugh PDF . Normal [facility] Comment on above: Performed By: #### P RTELEC #### [facility] [address] [place] [address] Dr. Santos Mchugh Please note: Comment Normal [facility] Comment on above: Result Comment: Prot ein electrophoresis scan will follow via computer, mail, or energy assistant delivery. Performed By: #### P RTELEC #### [facility] [address] [place] [address] Dr. Santos Mchugh Protein [Mass/Vol] 6.6 g/dL Normal 6.0-8.5 [facility] Comment on above: Performed By: #### P RTELEC #### [facility] [address] [place] [address] Dr. Santos Mchugh PTH INTACTon 04-11-2023 PTH, Intact 52 pg/mL Normal 15-65 [facility] Comment on above: Performed By: #### P THINT #### [facility] [address] [place] [address] Dr. Santos Mchugh HEMOGRAM AND PLATELon 2022 Hematocrit (Bld) [Volume fraction] 41.9 % Critically low 42.0-54.0 [facility] Comment on above: Performed By: #### U AMIC #### [facility] [address] [place] [address] Dr. Santos Mchugh Hemoglobin (Bld) [Mass/Vol] 13.3 g/dL Critically low 14.0-18.0 [facility] Comment on above: Performed By: #### U AMIC #### [facility] [address] [address] [address] Santos Mchugh MCH (RBC) [Entitic mass] 26.3 pg Normal 25.9-34.0 [facility] Comment on above: Performed By: #### U AMIC #### [facility] [address] [address] [address] Santos Mchugh MCHC (RBC) [Mass/Vol] 31.7 g/dL Normal 29.9-35.2 [facility] Comment on above: Performed By: #### U AMIC #### [facility] [address] [address] [address] Santos Mchugh MCV (RBC) [Entitic vol] 82.8 fL Normal 80.0-94.0 [facility] Comment on above: Performed By: #### U AMIC #### [facility] [address] [address] [address] Santos Mchugh PLT 167 103/ul Normal 150-450 [facility] Comment on above: Performed By: #### U AMIC #### [facility] [address] [address] [address] Santos Mchugh RBC 5.06 106/ul Normal 4.70-6.10 [facility] Comment on above: Performed By: #### U AMIC #### [facility] [address] [address] [address] Santos Mchugh WBC 5.2 103/ul Normal 4.0-11.0 [facility] Comment on above: Performed By: #### U AMIC #### [facility] [address] [address] [address] Santos Mchugh Office Visit (Cardiology)on 04-10-2023 [...] with dilated LVEF 31%. I reviewed prior MD cardiology note dated August 25, 2022. Patient [...] Patient is no longer receiving care from MD clinic: Transferred care to [facility] with new patient assessment by Dr. Osborn [...] reports that usually calibrated yearly by the MD clinic, will no longer be seen in the MD clinic and referred to the sleep clinic [...] side eff (more content not included)... Normal [facility] RENAL FUNCTION PANELon 04-10 Albumin [Mass/Vol] 3.6 g/dL Normal 3.4-5.0 [facility] Comment on above: Performed By: #### U KAJAL, RENAL #### [facility] [address] [address] [address] Santos Mchugh Calcium [Mass/Vol] 8.9 mg/dL Normal 8.5-10.1 [facility] Comment on above: Performed By: #### U KAJAL, RENAL #### [facility] [address] [address] [address] Santos Mchugh Chloride [Moles/Vol] 103 mmol/L Normal 98-107 [facility] Comment on above: Performed By: #### U KAJAL, RENAL #### [facility] [address] [address] [address] Santos Mchugh CO2 [Moles/Vol] 28.4 mmol/L Normal 21.0-32.0 [place] Comment on above: Performed By: #### U KAJAL, RENAL #### [facility] [address] [address] [address] Santos Mchugh Creatinine [Mass/Vol] 1.48 mg/dL Critically high 0.70-1.30 [facility] Comment on above: Performed By: #### U KAJAL, RENAL #### [facility] [address] [address] [address] Santos Mchugh EGFR-AF ANDORRAN 57 mL/min/1.73m2 Critically low >=60 [facility] Comment on above: Performed By: #### U KAJAL, RENAL #### [facility] [address] [address] [address] Santos Mchugh EGFR-NON AF ANDORRAN 47 mL/min/1.73m2 Critically low >=60 [facility] Comment on above: Performed By: #### U KAJAL, RENAL #### [facility] [address] [address] [address] Santos Mchugh Glucose [Mass/Vol] 122 mg/dL Critically high 74-106 [facility] Comment on above: Performed By: #### U KAJAL, RENAL #### [facility] [address] [address] [address] Santos Mchugh Phosphate [Mass/Vol] 3.9 mg/dL Normal 2.6-4.7 [facility] Comment on above: Performed By: #### U KAJAL, RENAL #### [facility] [address] [address] [address] Santos Mchugh Potassium [Moles/Vol] 4.5 mmol/L Normal 3.5-5.1 [facility] Comment on above: Performed By: #### U KAJAL, RENAL #### [facility] [address] [address] [address] Santos Mchugh Sodium [Moles/Vol] 140 mmol/L Normal 136-145 [facility] Comment on above: Performed By: #### U KAJAL, RENAL #### [facility] [address] [place] [address] Dr. Santos Mchugh Urea nitrogen [Mass/Vol] 23.0 mg/dL Critically high 7.0-18.0 [facility] Comment on above: Performed By: #### U KAJAL, RENAL #### [facility] [address] [place] [address] Dr. Santos Mchugh Tobacco Screening.on 023 Fall risk assessment a) No falls within the last year [facility] 250 DO Work Phone: Tobacco use status [facility] b) No M [facility] 250 DO Work Phone: UA RANDOM W/MICROSCOPICon BACTERIA NONE SEEN Normal NONE SEEN [facility] Comment on above: Performed By: #### U AMIC #### [facility] [address] [place] [address] Dr. Santos Mchugh Bilirubin Ql (U) Negative Normal NEGATIVE [facility] Comment on above: Performed By: #### U AMIC #### [facility] [address] [place] [address] Dr. Santos Mchugh CAST NONE SEEN Normal NONE SEEN [facility] Comment on above: Performed By: #### U AMIC #### [facility] [address] [place] [address] Dr. Santos Mchugh Clarity (U) CLEAR Normal CLEAR [facility] Comment on above: Performed By: #### U AMIC #### [facility] [address] [address] [address] Santos Mchugh Color (U) LT. YELLOW Normal YELLOW [facility] Comment on above: Performed By: #### U AMIC #### [facility] [address] [address] [address] Santos Mchugh Crystals LM Nom (Urine sed) NONE SEEN Normal NONE SEEN [facility] Comment on above: Performed By: #### U AMIC #### [facility] [address] [address] [address] Santos Mchugh Epithelial cells LM Ql (Urine sed) NONE SEEN Normal NONE SEEN /RARE [facility] Comment on above: Performed By: #### U AMIC #### [facility] [address] [place] [address] Dr. Santos Mchugh Glucose Ql (U) Negative Normal NEGATIVE [facility] Comment on above: Performed By: #### U AMIC #### [facility] [address] [address] [address] Santos Mchugh Hemoglobin Ql (U) Negative Normal NEGATIVE [facility] Comment on above: Performed By: #### U AMIC #### [facility] [address] [place] [address] Dr. Santos Mchugh Ketones Ql (U) Negative Normal NEGATIVE [facility] Comment on above: Performed By: #### U AMIC #### [facility] [address] [address] [address] Santos Mchugh LEUKOCYTES Negative Normal NEGATIVE [facility] Comment on above: Performed By: #### U AMIC #### [facility] [address] [address] [address] Santos Mchugh MUCOUS NONE SEEN Normal NONE SEEN [facility] Comment on above: Performed By: #### U AMIC #### [facility] [address] [place] [address] Dr. Santos Mchugh Nitrite Ql (U) Negative Normal NEGATIVE [facility] Comment on above: Performed By: #### U AMIC #### [facility] [address] [place], [place] [id number] Dr. Santos Mchugh pH (U) 6.0 [pH] Normal 5-9 [facility] Comment on above: Performed By: #### U AMIC #### [facility] [address] [place] [address] Dr. Santos Mchugh RBC 0-2 Normal 0-2 [facility] Comment on above: Performed By: #### U AMIC #### [facility] [address] [place] [address] Dr. Santos Mchugh SPEC GRAVITY 1.015 Normal 1.005-<=1.02 5 [facility] Comment on above: Performed By: #### U AMIC #### [facility] [address] [place] [address] Dr. Santos Mchugh UA PROTEIN 100 mg/dl Abnormal NEGATIVE/ TRACE [facility] Comment on above: Performed By: #### U AMIC #### [facility] [address] [place] [address] Dr. Santos Mchugh Urobilinogen Qn (U) 0.2 {Dolores'U}/dL Normal 0.2 - 1. 0 [facility] Comment on above: Performed By: #### U AMIC #### [facility] [address] [place] [address] Dr. Santos Mchugh WBC NONE SEEN Normal NONE SEEN [facility] Comment on above: Performed By: #### U AMIC #### [facility] [address] [place] [address] Dr. Santos Mchugh URIC ACID SERUMon 04-10-2023 Urate [Mass/Vol] 7.0 mg/dL Normal 3.5-7.2 [facility] Comment on above: Performed By: #### U KAJAL, RENAL #### [facility] [address] [place] [address] Dr. Santos Mchugh URINE T PROTEIN CREAT RATIOo n 04-10-2023 Protein (U) [Mass/Vol] 68.1 mg/dL Critically high <=12.0 [facility] Comment on above: Performed By: #### U RTPCR #### [facility] [address] [address] [address] Santos Mchugh UR PROT CREAT RAT 0.97 Normal [facility] Comment on above: Performed By: #### U RTPCR #### [facility] [address] [place] [address] Dr. Santos Mchugh URINE CREAT 70.53 mg/dL Normal 20.00-300.00 [facility] Comment on above: Performed By: #### U RTPCR #### [facility] [address] [place] [address] Dr. Santos Mchugh VITAMIN D 25 OHon 04-10-2023 VIT D 25-OH 41.0 ng/mL Normal [facility] Comment on above: Performed By: #### V ITAD #### [facility] [address] [place] [address] Dr. Santos Mchugh VIT D RANGES SEE BELOW Normal [facility] Comment on above: Result Comment: <20 ng/mL Vit D deficient 20 - <30 ng/mL Vit D insufficient 30 - 100 ng/mL Vit D sufficient >100 ng/mL Potential Toxicity Performed By: #### V ITAD #### [facility] [address] [place] [address] Dr. Santos Mchugh [facility] CARDIAC STRESS/REST INJE CTIONon 03-31-2023 [facility] CARDIAC STRESS/REST INJECTION Patient Name: ADRIEL GIRALDO STUDY: MYOCARDIAL PERFUSION STRESS TEST WITH LEXISCAN Performing facility: [facility], [address] [place] [address], [address], [address] Provider: Lashell Osborn MD PCP: Dr. Sam Perez Supervising provider: Jemima Gastelum MD INDICATION: Abnormal EKG; Pre-operative risk assessment for Right knee scheduled at [facility] on TBD. HISTORY: Gender: M; Age: 72 y/o ; Height: 0 cm; Weight: 131.711803 kg. Abnormal EKG; High Cholesterol; Diabetes; HTN; Denies smoking. COMPARISON: No comparison. ACCESSION NUMBER(S): [id number]; [id number]; [id number] ORDERING CLINICIAN: LASHELL OSBORN TECHNIQUE: ONE DAY [...] Electronically signed by: JEMIMA GASTELUM MD Normal [facility] Information 03-31 FINAL REPORT Interpreted by: JEMIMA GASTELUM MD 04/01/23 16:28 Patient Name: ADRIEL GIRALDO STUDY: MYOCARDIAL PERFUSION STRESS TEST WITH LEXISCAN Performing facility: [facility], [address] [place] [address] 250 DO Work Phone: Office Visit (Cardiology)on [...] GIRALDO is being seen for POC for Rye Rt Knee. History of Present Illness 72 yo male here for pre-operative cardiac clearance prior to TKA of R knee. Patient has no complaints today including chest pain, VALENZUELA, presyncope/syncope. He is unable to complete > 4 METS due to knee pain. His ECG with incomplete LBBB. Has not had an ischemic evaluation in a few years. Initial visit: [facility]. Has a reported hx of [...] TabletTAKE 1.5 TABLET 3 times daily Saw Freeport 1000 MG Oral CapsuleTAKE DIRECTED. Vitamin D3 [...] Signs Recorded: 23Jan2023 09:16AM Heart Rate63, Apical Olppnxun930, LUE, Sitting Zkzblzknf74, LUE, Sitting Height6 ft 2 in Nvsrkc844 lb BMI Tbejbzonyu74.75 kg/m2 BSA Calculated2.56 Tobacco Useb) No PHQ-2 [...] Will c (more content not included)... Normal [facility] Tobacco Screening.on 023 Adult depression screening assessment No [facility] [employer] [facility] 250 DO Work Phone: Fall risk assessment a) No falls within the last year [facility] 250 DO Work Phone: Tobacco use status [facility] b) No M [facility] 250 DO Work Phone: MRI Knee w/o [...] by Abhinav Muller on 01/07/2023 1009 Normal [facility] Teletype Clerk Office Visit (Cardiology)on 12-26-2022 Follow-up visit Diagnoses/Problems Assessed Cardiomyopathy (425.4) (I42.9) CHF (NYHA class II, ACC/AHA stage C) (428.0) (I50.9) Hyperlipidemia (272.4) (E78.5) Primary hypertension (401.9) (I10) Class 2 obesity with body mass index (BMI) of 37.0 to 37.9 in adult (278.00,V85.37) (E66.9,Z68.37) Obstructive sleep apnea, adult (327.23) (G47.33) Never a smoker Orders Cardiomyopathy IO EKG Electrocardiogram- 12 Lead; Status:Complete; Done: [id number] Cardiomyopathy, Primary hypertension Renew: Carvedilol 12.5 MG [...] For - Scheduling,Retrospec tive Authorization Requested for: [id number] SocHx: Never a smoker Tobacco Use Screening; Status:Complete; Done: [id number] Patient Instructions Please bring all medicines, vitamins, [...] seen for a consultation for CHF- 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 History of Present Illness 72 yo [...] TabletTAKE 1.5 TABLET 3 times daily Saw Freeport 1000 MG Oral CapsuleTAKE DIRECTED. Vitamin D3 [...] negative for complaint. Vitals Vital Signs Recorded: [id number] 10:52AMRecorded: 35Vep6836 10:51AM Hjitmbjs507, LUE, Ufgwznp836, RUE, Sitting Pcfigbmzr41, LUE, Djlrhfw76, RUE, Sitting Heart Rate61, Apical Height6 ft 2 in Autwmh495 lb BMI Oflobyccug87.75 kg/m2 BSA Calculated2.56 Tobacco Useb) No PHQ-2 [...] current therap (more content not included)... Normal [employer] Tobacco Screening.on 023 Adult depression screening assessment No [facility] 250 DO Work Phone: Fall risk assessment a) No falls within the last year [facility] 250 DO Work Phone: Tobacco use status [facility] b) No M [facility] 250 DO Work Phone: Quick Fluon 09-08-2022 FLUAV Ab CF (S) [Titer] Negative N [employer] Other FLUBV Ab CF (S) [Titer] Negative [employer] [facility] [facility] [employer] Other SARS-CoV-2 (COVID-19) RNA NA A+probe Ql (Resp)on 09-08-2022 SARS-CoV-2 (COVID-19) RNA HECTOR+probe Ql (Unsp spec) Positive [employer] Other Auth for Release of Medical Recordson 11-15-2020 Auth for Release of Medical Records [id number] #1.00CD:127 Normal [facility] Formson 09-11-2020 Forms [id number] #1.00CD:127 [facility] Physician Referralon 020 Physician Referral [id number]# 1.00CD:127 [facility] Ambulatory Clinical Summaryo n 09-07-2020 Ambulatory Clinical Summary {[id number]}CD:[id number] [facility] Patient Educationon 09-07-20 20 Patient Education [...] Document Reviewed: 07/07/2008 ExitCare? Patient Information ?2013 [employer]. Erectile Dysfunction Erectile dysfunction (ED) is the [...] Document Reviewed: 02/22/2012 ExitCare? Patient Information ?2013 [employer]. Russ Jason [facility] Urology Office/Clinic Noteon 09-07-2020 Urology Office/Clinic [...] use pde5s due to nitro meds. reviewed [employer] papers. Reviewed UA. There have been no [...] there is any issues at arise. Saw michellecharleneo was discussed briefly due to pt asking [...] that he has PSA tony at the MD, and states that the levels are normal. SHANELLE was done today and was negative for any nodules. I have reviewed the previous health record information and history for this patient from Dr. Silverio Follow-up With When Contact Information Kevin SILVERIO MD if needed [facility] [address] [place] [address]- [phone] Additional Instructions: Patient Education Benign Prostatic Hyperplasia [...] Dipstick: 2+ (100 mg/dl) (09/07/20 10:27:00) Specific [place] Urine Dipstick: 1.025 (09/07/20 10:27:00) Urine Appearance Urine Dipstick: Clear (09/07/20 10:27:00) Urine Color Urine Dipstick: Yellow (09/07/20 10:27:00) Urobilinogen Urine Dipstick: Normal 0.2-1 EU/dl (09/07/20 10:27:00) pH Urine Dipstick: 5.5 (09/07/20 10:27:00) Normal [facility] Comment on above: Result Comment: Elec tronically Signed By: Kevin SILVERIO MD\.br\Date and Time Signed: 09/07/20 11:19 EDT\.br\Electronically Co-Signed By: Lashell Kimbrough MA\.br\Date and Time Co-Signed: 09/07/20 11:16 EDT Vital Signs Date Time Vital Sign Value Performing Clinician Facility 12-08-2024 08:44-0500 Body height 188 cm Bony Brown DPM Work Phone: [facility] 12-08-2024 08:44-0500 Body mass index (BMI) [Ratio] 34.02 kg/m2 Bony Brown DPM Work Phone: [facility] 12-08-2024 08:44-0500 Body weight 120.2 kg Bony Brown DPM Work Phone: [facility] 12-08-2024 08:44-0500 Respiratory rate 18 /min Bony Brown DPM Work Phone: [facility] 11-22-2024 08:56-0500 Body height 188 cm Bony Brown DPM Work Phone: [facility] 11-22-2024 08:56-0500 Body mass index (BMI) [Ratio] 34.02 kg/m2 Bony Brown DPM Work Phone: [facility] 11-22-2024 08:56-0500 Body weight 120.2 kg Bony Brown DPM Work Phone: [facility] 11-22-2024 08:56-0500 Respiratory rate 16 /min Bony Gibson DPM Work Phone: [facility] 09-29-2024 09:42-0500 Body mass index (BMI) [Ratio] 35.7 kg/m2 [facility] 09-29-2024 09:29-0500 Body height 185.42 cm [facility] 09-29-2024 09:29-0500 Body weight 122.95 kg [facility] 09-29-2024 09:29-0500 Diastolic blood pressure 62 mm[Hg] [facility] 09-29-2024 09:29-0500 Heart rate 61 /min [facility] 09-29-2024 09:29-0500 Respiratory rate 18 /min [facility] 09-29-2024 09:29-0500 SaO2% (BldA) [Mass fraction] 95 % [facility] 09-29-2024 09:29-0500 Systolic blood pressure 130 mm[Hg] [facility] 08-17-2024 12:41-0400 Body height 188 cm Sb Devon DO Work Phone: [facility] 08-17-2024 12:41-0400 Body mass index (BMI) [Ratio] 34.02 kg/m2 Sb Devon DO Work Phone: [facility] 08-17-2024 12:41-0400 Body weight 120.2 kg Sb Devon DO Work Phone: [facility] 08-17-2024 12:41-0400 Diastolic blood pressure 84 mm[Hg] Sb Devon DO Work Phone: [facility] 08-17-2024 12:41-0400 Heart rate 52 /min Sb Devon DO Work Phone: [facility] 08-17-2024 12:41-0400 SaO2% (BldA) [Mass fraction] 97 % Sb Devon DO Work Phone: [facility] 08-17-2024 12:41-0400 Systolic blood pressure 130 mm[Hg] Sb Osorio DO Work Phone: [facility] 08-08-2024 14:39-0400 Body height 185.42 cm [facility] 08-08-2024 14:39-0400 Body mass index (BMI) [Ratio] 36.3 kg/m2 [facility] 08-08-2024 14:39-0400 Body weight 124.73 kg [facility] 08-08-2024 14:39-0400 Diastolic blood pressure 70 mm[Hg] [facility] 08-08-2024 14:39-0400 Heart rate 57 /min [facility] 08-08-2024 14:39-0400 Systolic blood pressure 132 mm[Hg] [facility] 07-04-2024 11:02-0400 Body height 185.42 cm [facility] 07-04-2024 11:02-0400 Body mass index (BMI) [Ratio] 36.9 kg/m2 [facility] 07-04-2024 11:02-0400 Body temperature 96.7 [degF] [facility] 07-04-2024 11:02-0400 Body weight 127 kg [facility] 07-04-2024 11:02-0400 Diastolic blood pressure 72 mm[Hg] [facility] 07-04-2024 11:02-0400 Heart rate 60 /min [facility] 07-04-2024 11:02-0400 Respiratory rate 16 /min [facility] 07-04-2024 11:02-0400 SaO2% (BldA) [Mass fraction] 96 % [facility] 07-04-2024 11:02-0400 Systolic blood pressure 142 mm[Hg] [facility] 04-27-2024 11:56-0400 Body height 185.42 cm [facility] 04-27-2024 11:56-0400 Body mass index (BMI) [Ratio] 36.6 kg/m2 [facility] 04-27-2024 11:56-0400 Body weight 126.09 kg [facility] 04-27-2024 11:56-0400 Diastolic blood pressure 68 mm[Hg] [facility] 04-27-2024 11:56-0400 Heart rate 64 /min [facility] 04-27-2024 11:56-0400 Systolic blood pressure 118 mm[Hg] [facility] 04-12-2024 09:55-0400 Body height 185.42 cm MD Jun Perez Work Phone: [facility] 04-12-2024 09:55-0400 Body mass index (BMI) [Ratio] 36.6 kg/m2 MD Jun Perez Work Phone: [facility] 04-12-2024 09:55-0400 Body weight 126.09 kg MD Jun Perez Work Phone: [facility] 04-12-2024 09:55-0400 Diastolic blood pressure 74 mm[Hg] MD Jun Perez Work Phone: [facility] 04-12-2024 09:55-0400 Heart rate 59 /min MD Jun Perez Work Phone: [facility] 04-12-2024 09:55-0400 Systolic blood pressure 133 mm[Hg] MD Jun Perez Work Phone: [facility] 03-24-2024 10:34-0400 Body height 185.42 cm MD Jun Perez Work Phone: [facility] 03-24-2024 10:34-0400 Body mass index (BMI) [Ratio] 36.5 kg/m2 MD Jun Perez Work Phone: [facility] 03-24-2024 10:34-0400 Body weight 125.64 kg MD Jun Perez Work Phone: [facility] 03-24-2024 10:34-0400 Diastolic blood pressure 66 mm[Hg] MD Jun Perez Work Phone: [facility] 03-24-2024 10:34-0400 Heart rate 83 /min MD Jun Perez Work Phone: [facility] 03-24-2024 10:34-0400 Respiratory rate 18 /min MD Jun Perez Work Phone: [facility] 03-24-2024 10:34-0400 SaO2% (BldA) [Mass fraction] 97 % MD Jun Perez Work Phone: [facility] 03-24-2024 10:34-0400 Systolic blood pressure 145 mm[Hg] MD Jun Perez Work Phone: [facility] 03-22-2024 11:20-0400 Body height 185.42 cm MD Jun Perez Work Phone: [facility] 03-22-2024 11:20-0400 Body mass index (BMI) [Ratio] 36.3 kg/m2 MD Jun Perez Work Phone: [facility] 03-22-2024 11:20-0400 Body weight 124.73 kg MD Jun Perez Work Phone: [facility] 03-22-2024 11:20-0400 Diastolic blood pressure 72 mm[Hg] MD Jun Perez Work Phone: [facility] 03-22-2024 11:20-0400 Heart rate 53 /min MD Jun Perez Work Phone: [facility] 03-22-2024 11:20-0400 Respiratory rate 18 /min MD Jun Perez Work Phone: [facility] 03-22-2024 11:20-0400 SaO2% (BldA) [Mass fraction] 98 % MD Jun Perez Work Phone: [facility] 03-22-2024 11:20-0400 Systolic blood pressure 140 mm[Hg] MD Jun Perez Work Phone: [facility] [facility] 01-11-2024 11:46-0500 Body height 185.42 cm MD Jun Perez Work Phone: [facility] 01-11-2024 11:46-0500 Body mass index (BMI) [Ratio] 36.3 kg/m2 MD Jun Perez Work Phone: [facility] 01-11-2024 11:46-0500 Body weight 125.19 kg MD Jun Perez Work Phone: [facility] 01-11-2024 11:46-0500 Diastolic blood pressure 78 mm[Hg] MD Jun Perez Work Phone: [facility] 01-11-2024 11:46-0500 Heart rate 68 /min MD Jun Perez Work Phone: [facility] 01-11-2024 11:46-0500 Respiratory rate 18 /min MD Jun Perez Work Phone: [facility] 01-11-2024 11:46-0500 SaO2% (BldA) [Mass fraction] 98 % MD Jun Perez Work Phone: [facility] 01-11-2024 11:46-0500 Systolic blood pressure 142 mm[Hg] MD Jun Perez Work Phone: [facility] 01-05-2024 11:58-0500 Body height 185.42 cm MD Jun Perez Work Phone: [facility] 01-05-2024 11:58-0500 Body mass index (BMI) [Ratio] 36.6 kg/m2 MD Jun Perez Work Phone: [facility] 01-05-2024 11:58-0500 Body temperature 96.9 [degF] MD Jun Perez Work Phone: [facility] 01-05-2024 11:58-0500 Body weight 125.7 kg MD Jun Perez Work Phone: [facility] 01-05-2024 11:58-0500 Diastolic blood pressure 77 mm[Hg] MD Jun Perez Work Phone: [facility] 01-05-2024 11:58-0500 Heart rate 55 /min MD Jun Perez Work Phone: [facility] 01-05-2024 11:58-0500 Respiratory rate 18 /min MD Jun Perez Work Phone: [facility] 01-05-2024 11:58-0500 SaO2% (BldA) [Mass fraction] 98 % MD Jun Perez Work Phone: [facility] 01-05-2024 11:58-0500 Systolic blood pressure 131 mm[Hg] MD Jun Perez Work Phone: [facility] 12-31-2023 11:36-0500 Body height 185.42 cm MD Jun Perez Work Phone: [facility] 12-31-2023 11:36-0500 Body mass index (BMI) [Ratio] 36.4 kg/m2 MD Jun Perez Work Phone: [facility] 12-31-2023 11:36-0500 Body weight 125.24 kg MD Jun Perez Work Phone: [facility] 12-31-2023 11:36-0500 Diastolic blood pressure 70 mm[Hg] MD Jun Perez Work Phone: [facility] 12-31-2023 11:36-0500 Heart rate 60 /min MD Jun Perez Work Phone: [facility] 12-31-2023 11:36-0500 Systolic blood pressure 131 mm[Hg] MD Jun Perez Work Phone: [facility] 12-22-2023 10:00-0500 Body height 185.42 cm Tondra Mapus Other [facility] [employer] Other 12-22-2023 10:00-0500 Body mass index (BMI) [Ratio] 36.75 kg/m2 Tondra Mapus Other [facility] [employer] Other 02-06-2024 10:00-0500 Body weight 126.37 kg Tondra Mapus Other [employer] Other 12-22-2023 10:00-0500 Diastolic blood pressure 76 mm[Hg] Tondra Mapus Other [employer] Other 12-22-2023 10:00-0500 Respiratory rate 18 /min Tondra Mapus Other [employer] Other 12-22-2023 10:00-0500 SaO2% (BldA) [Mass fraction] 98 % Tondra Mapus Other [employer] Other 12-22-2023 10:00-0500 Systolic blood pressure 137 mm[Hg] Tondra Mapus Other [employer] Other 12-14-2023 11:20-0500 Body height 185.42 cm Jose Adrianaomia Other [facility] 12-14-2023 11:20-0500 Body mass index (BMI) [Ratio] 36.94 kg/m2 Jose Koromia Other [facility] [employer] Other 12-14-2023 11:20-0500 Body weight 127.01 kg Jose Koromia Other [employer] Other 12-14-2023 11:20-0500 Body weight 127 kg MD Jun Perez Work Phone: [facility] 12-14-2023 11:20-0500 Diastolic blood pressure 84 mm[Hg] Jose Koromia Other [facility] 12-14-2023 11:20-0500 Respiratory rate 18 /min Jose Koromia Other [facility] [employer] Other 12-14-2023 11:20-0500 SaO2% (BldA) [Mass fraction] 98 % Jose Adrianaomia Other [facility] [employer] Other 12-14-2023 11:20-0500 Systolic blood pressure 156 mm[Hg] Jose Koromia Other [facility] 11-18-2023 11:20-0500 Body height 185.42 cm Jose Koromia Other [facility] 11-18-2023 11:20-0500 Body mass index (BMI) [Ratio] 36.15 kg/m2 Jose Adrianaomia Other [facility] [employer] Other 11-18-2023 11:20-0500 Body weight 124.29 kg Jose Adrianaomia Other [facility] [employer] Other 11-18-2023 11:20-0500 Body weight 124.28 kg MD Jun Perez Work Phone: [facility] 11-18-2023 11:20-0500 Diastolic blood pressure 70 mm[Hg] Jose Adrianaomia Other [facility] 11-18-2023 11:20-0500 Respiratory rate 18 /min Jose Wrightomia Other [facility] [employer] Other 11-18-2023 11:20-0500 SaO2% (BldA) [Mass fraction] 96 % Jose Koromia Other [facility] [employer] Other 11-18-2023 11:20-0500 Systolic blood pressure 132 mm[Hg] Jose Koromia Other [facility] 10-31-2023 12:15-0500 Body height 185.42 cm MD Jun Perez Work Phone: [facility] 10-31-2023 12:15-0500 Body weight 127 kg MD Jun Perez Work Phone: [facility] 10-31-2023 12:15-0500 Diastolic blood pressure 71 mm[Hg] MD Jun Perez Work Phone: [facility] 10-31-2023 12:15-0500 Systolic blood pressure 130 mm[Hg] MD Jun Perez Work Phone: [facility] 10-21-2023 12:17-0500 Diastolic blood pressure 78 mm[Hg] MD Jun Perez Work Phone: [facility] 10-21-2023 12:17-0500 Heart rate 54 /min MD Jun Perez Work Phone: [facility] 10-21-2023 12:17-0500 Respiratory rate 16 /min MD Jun Perez Work Phone: [facility] 10-21-2023 12:17-0500 SaO2% (BldA) [Mass fraction] 98 % MD Jun Perez Work Phone: [facility] 10-21-2023 12:17-0500 Systolic blood pressure 144 mm[Hg] MD Jun Perez Work Phone: [facility] 10-21-2023 10:35-0500 Body height 187.96 cm MD Jun Perez Work Phone: [facility] 10-21-2023 10:35-0500 Body temperature 97.8 [degF] MD Jun Perez Work Phone: [facility] 10-21-2023 10:35-0500 Body weight 121.1 kg MD Jun Perez Work Phone: [facility] 10-15-2023 11:23-0500 Body height 188 cm Britney Yu MD Work Phone: [facility] 10-15-2023 11:23-0500 Body mass index (BMI) [Ratio] 35.31 kg/m2 Britney Yu MD Work Phone: [facility] 10-15-2023 11:23-0500 Body weight 124.74 kg Britney Yu MD Work Phone: [facility] 10-15-2023 11:23-0500 Diastolic blood pressure 82 mm[Hg] Briteny Yu MD Work Phone: [facility] 10-15-2023 11:23-0500 Heart rate 64 /min Britney Yu MD Work Phone: [facility] 10-15-2023 11:23-0500 Systolic blood pressure 130 mm[Hg] Britney Yu MD Work Phone: [facility] 09-28-2023 10:32-0500 Body height 188 cm Britney Yu MD Work Phone: [facility] 09-28-2023 10:32-0500 Body mass index (BMI) [Ratio] 36.21 kg/m2 Britney Yu MD Work Phone: [facility] 09-28-2023 10:32-0500 Body weight 127.91 kg Britney Yu MD Work Phone: [facility] 09-28-2023 10:32-0500 Diastolic blood pressure 80 mm[Hg] Britney Yu MD Work Phone: [facility] 09-28-2023 10:32-0500 Heart rate 64 /min Britney Yu MD Work Phone: [facility] 09-28-2023 10:32-0500 Systolic blood pressure 138 mm[Hg] rBitney Yu MD Work Phone: [facility] 09-17-2023 09:45-0400 Body height 185.42 cm Duncan Parham Other [employer] Other 09-17-2023 09:45-0400 Body mass index (BMI) [Ratio] 37.33 kg/m2 Tondra Mapus Other [employer] Other 09-17-2023 09:45-0400 Body weight 128.37 kg Tondra Mapus Other [employer] Other 09-17-2023 09:45-0400 Diastolic blood pressure 68 mm[Hg] Tondra Mapus Other [employer] Other 09-17-2023 09:45-0400 Respiratory rate 18 /min Tondra Mapus Other [employer] Other 09-17-2023 09:45-0400 SaO2% (BldA) [Mass fraction] 96 % Tondra Mapus Other [employer] Other 09-17-2023 09:45-0400 Systolic blood pressure 128 mm[Hg] Tondra Mapus Other [employer] Other 06-08-2023 11:25-0400 Body height 187.96 cm Jun Perez Work Phone: [employer] Work Phone: 06-08-2023 11:25-0400 Body mass index (BMI) [Ratio] 36.72 kg/m2 Jun Perez Work Phone: [employer] DO Work Phone: 06-08-2023 11:25-0400 Body surface area Derived from formula 2.53 m2 Jun Perez Work Phone: [employer] DO Work Phone: 06-08-2023 11:25-0400 Body weight 129.73 kg Jun Perez Work Phone: [facility] 250 DO Work Phone: 06-08-2023 11:25-0400 Diastolic blood pressure 68 mm[Hg] Jun Perez Work Phone: [facility] DO Work Phone: 06-08-2023 11:25-0400 Heart rate 56 /min Jun Perez Work Phone: [facility] 250 DO Work Phone: 06-08-2023 11:25-0400 Systolic blood pressure 136 mm[Hg] Jun Perez Work Phone: [facility] DO Work Phone: 05-14-2023 10:45-0400 Body height 187.96 cm Jun Perez Work Phone: [facility] 250 DO Work Phone: 05-14-2023 10:45-0400 Body mass index (BMI) [Ratio] 36.85 kg/m2 Jun Perez Work Phone: [facility] 250 DO Work Phone: 05-14-2023 10:45-0400 Body surface area Derived from formula 2.53 m2 Jun Perez Work Phone: [facility] 250 DO Work Phone: 05-14-2023 10:45-0400 Body weight 130.18 kg Jun Perez Work Phone: [facility] 250 DO Work Phone: 05-14-2023 10:45-0400 Diastolic blood pressure 80 mm[Hg] Jun Perez Work Phone: [facility] 250 DO Work Phone: 05-14-2023 10:45-0400 Heart rate 56 /min Jun Perez Work Phone: [facility] [employer] 250 DO Work Phone: 05-14-2023 10:45-0400 Systolic blood pressure 128 mm[Hg] Jun Perez Work Phone: [facility] [employer] 250 DO Work Phone: 04-17-2023 09:15-0400 Body height 185.42 cm Jun Perez Other [employer] Other 04-17-2023 09:15-0400 Body mass index (BMI) [Ratio] 38.52 kg/m2 Jun Perez Other [employer] Other 04-17-2023 09:15-0400 Body weight 132.45 kg Jun Perez Other [employer] Other 04-17-2023 09:15-0400 Diastolic blood pressure 77 mm[Hg] Jun Perez Other [employer] Other 04-17-2023 09:15-0400 Systolic blood pressure 146 mm[Hg] Jun Perez Other [employer] Other 04-16-2023 11:40-0400 Body height 185.42 cm Tj Mayo Other [employer] Other 04-16-2023 11:40-0400 Body mass index (BMI) [Ratio] 39.14 kg/m2 Tj Mayo Other [employer] Other 04-16-2023 11:40-0400 Body temperature 97.8 [degF] Tj Mayo Other [employer] Other 04-16-2023 11:40-0400 Body weight 134.58 kg Tj Mayo Other [employer] Other 04-16-2023 11:40-0400 Diastolic blood pressure 80 mm[Hg] Tj Mayo Other [employer] Other 04-16-2023 11:40-0400 Respiratory rate 18 /min Tj Mayo Other [employer] Other 04-16-2023 11:40-0400 SaO2% (BldA) [Mass fraction] 97 % Tj Mayo Other [employer] Other 04-16-2023 11:40-0400 Systolic blood pressure 144 mm[Hg] Tj Mayo Other [employer] Other 04-10-2023 15:44-0400 Body height 187.96 cm Jun Perez Work Phone: [facility] [employer] 250 DO Work Phone: 04-10-2023 15:44-0400 Body mass index (BMI) [Ratio] 25.17 kg/m2 Jun Perez Work Phone: [facility] [employer] 250 DO Work Phone: 04-10-2023 15:44-0400 Body surface area Derived from formula 2.15 m2 Jun Perez Work Phone: [employer] DO Work Phone: 04-10-2023 15:44-0400 Body weight 88.91 kg Jun Perez Work Phone: [facility] [employer] 250 DO Work Phone: 04-10-2023 15:44-0400 Diastolic blood pressure 72 mm[Hg] Jun Perez Work Phone: [facility] [place] 250 DO Work Phone: 04-10-2023 15:44-0400 Heart rate 64 /min Jun Perez Work Phone: [facility] [employer] 250 DO Work Phone: 04-10-2023 15:44-0400 Systolic blood pressure 126 mm[Hg] Jun Perez Work Phone: [facility] [employer] 250 DO Work Phone: 02-17-2023 12:15-0400 Body height 185.42 cm Jun Perez Other [employer] Other 02-17-2023 12:15-0400 Body mass index (BMI) [Ratio] 38.39 kg/m2 Jun Perez Other [employer] Other 02-17-2023 12:15-0400 Body temperature 98.6 [degF] Jun Perez Other [employer] Other 02-17-2023 12:15-0400 Body weight 132 kg Jun Perez Other [employer] Other 02-17-2023 12:15-0400 Diastolic blood pressure 82 mm[Hg] Jun Perez Other [employer] Other 02-17-2023 12:15-0400 SaO2% (BldA) [Mass fraction] 97 % Jun Perez Other [employer] Other 02-17-2023 12:15-0400 Systolic blood pressure 122 mm[Hg] Jun Perez Other [employer] Other 02-04-2023 16:40-0400 Body height 185.42 cm Tj Mayo Other [employer] Other 02-04-2023 16:40-0400 Body mass index (BMI) [Ratio] 38.28 kg/m2 Tj Mayo Other [employer] Other 02-04-2023 16:40-0400 Body weight 131.63 kg Tj Mayo Other [employer] Other 02-04-2023 16:40-0400 Diastolic blood pressure 96 mm[Hg] Tj Mayo Other [employer] Other 02-04-2023 16:40-0400 Respiratory rate 18 /min Tj Mayo Other [employer] Other 02-04-2023 16:40-0400 SaO2% (BldA) [Mass fraction] 98 % Tj Mayo Other [employer] Other 02-04-2023 16:40-0400 Systolic blood pressure 164 mm[Hg] Tj Mayo Other [employer] Other 01-23-2023 09:16-0500 Body height 187.96 cm Jun Perez Work Phone: [facility] [employer] 250 DO Work Phone: 01-23-2023 09:16-0500 Body mass index (BMI) [Ratio] 37.75 kg/m2 Jun Perez Work Phone: [facility] [employer] 250 DO Work Phone: 01-23-2023 09:16-0500 Body surface area Derived from formula 2.56 m2 Jun Perez Work Phone: [facility] 250 DO Work Phone: 01-23-2023 09:16-0500 Body weight 133.36 kg Jun Perez Work Phone: [facility] 250 DO Work Phone: 01-23-2023 09:16-0500 Diastolic blood pressure 82 mm[Hg] Jun Perez Work Phone: [facility] DO Work Phone: 01-23-2023 09:16-0500 Heart rate 63 /min Jun Perez Work Phone: [facility] DO Work Phone: 01-23-2023 09:16-0500 Systolic blood pressure 136 mm[Hg] Jun Perez Work Phone: [facility] DO Work Phone: 12-26-2022 10:52-0500 Diastolic blood pressure 80 mm[Hg] Jun Perez Work Phone: [facility] DO Work Phone: 12-26-2022 10:52-0500 Systolic blood pressure 148 mm[Hg] Jun Perez Work Phone: [facility] DO Work Phone: 12-26-2022 10:51-0500 Body height 187.96 cm Jun Perez Work Phone: [facility] 250 DO Work Phone: 12-26-2022 10:51-0500 Body mass index (BMI) [Ratio] 37.75 kg/m2 Jun Perez Work Phone: [facility] 250 DO Work Phone: 12-26-2022 10:51-0500 Body surface area Derived from formula 2.56 m2 Jun Perez Work Phone: [facility] [employer] 250 DO Work Phone: 12-26-2022 10:51-0500 Body weight 133.36 kg Jun Perez Work Phone: [facility] [place] [facility] DO Work Phone: 12-26-2022 10:51-0500 Diastolic blood pressure 80 mm[Hg] Jun Perez Work Phone: [facility] [employer] 250 DO Work Phone: 12-26-2022 10:51-0500 Heart rate 61 /min Jun Perez Work Phone: [facility] [employer] 250 DO Work Phone: 12-26-2022 10:51-0500 Systolic blood pressure 146 mm[Hg] Jun Perez Work Phone: [facility] [employer] 250 DO Work Phone: 12-01-2022 16:00-0500 Body height 185.42 cm Jun Perez Other [employer] Other 12-01-2022 16:00-0500 Body mass index (BMI) [Ratio] 38.92 kg/m2 Jun Perez Other [employer] Other 12-01-2022 16:00-0500 Body weight 133.81 kg Jun Perez Other [employer] Other 12-01-2022 16:00-0500 Diastolic blood pressure 80 mm[Hg] Jun Perez Other [employer] Other 12-01-2022 16:00-0500 SaO2% (BldA) [Mass fraction] 98 % Jun Perez Other [employer] Other 12-01-2022 16:00-0500 Systolic blood pressure 140 mm[Hg] Jun Perez Other [employer] Other 11-20-2022 10:30-0500 Body height 187.96 cm Edie Morse Other [employer] Other 11-20-2022 10:30-0500 Body mass index (BMI) [Ratio] 37.61 kg/m2 Edie Morse Other [employer] Other 11-20-2022 10:30-0500 Body weight 132.9 kg Edie Morse Other [employer] Other 11-20-2022 10:30-0500 Diastolic blood pressure 79 mm[Hg] Edie Morse Other [employer] Other 11-20-2022 10:30-0500 Respiratory rate 20 /min Edie Morse Other [employer] Other 11-20-2022 10:30-0500 SaO2% (BldA) [Mass fraction] 98 % Edie Morse Other [employer] Other 11-20-2022 10:30-0500 Systolic blood pressure 146 mm[Hg] Edie Morse Other [employer] Other 09-08-2022 10:15-0400 Body height 187.96 cm Phyllis Reyes Other [employer] Other 09-08-2022 10:15-0400 Body mass index (BMI) [Ratio] 36.59 kg/m2 Phyllis Yoomond Other [employer] Other 09-08-2022 10:15-0400 Body temperature 97.6 [degF] Phyllis Amy Other [employer] Other 09-08-2022 10:15-0400 Body weight 129.28 kg Phyllis Amy Other [employer] Other 09-08-2022 10:15-0400 Diastolic blood pressure 59 mm[Hg] Phyllis Amy Other [employer] Other 09-08-2022 10:15-0400 Respiratory rate 18 /min Phyllis Yoomond Other [employer] Other 09-08-2022 10:15-0400 SaO2% (BldA) [Mass fraction] 97 % Phyllis Amy Other [employer] Other 09-08-2022 10:15-0400 Systolic blood pressure 112 mm[Hg] Phyllis Amy Other [employer] Other 05-25-2022 13:35-0400 Body height 187.96 cm Phyllis Amy Other [employer] Other 05-25-2022 13:35-0400 Body mass index (BMI) [Ratio] 37.23 kg/m2 Phyllis Amy Other [employer] Other 05-25-2022 13:35-0400 Body temperature 97.4 [degF] Phyllis Amy Other [employer] Other 05-25-2022 13:35-0400 Body weight 131.54 kg Phyllis Reyes Other [employer] Other 05-25-2022 13:35-0400 Diastolic blood pressure 82 mm[Hg] Phyllis Reyes Other [employer] Other 05-25-2022 13:35-0400 Respiratory rate 18 /min Phyllis Reyes Other [employer] Other 05-25-2022 13:35-0400 SaO2% (BldA) [Mass fraction] 96 % Phyllis Reyes Other [employer] Other 05-25-2022 13:35-0400 Systolic blood pressure 142 mm[Hg] Phyllis Reyes Other [employer] Other 04-30-2022 11:00-0400 Body height Mary Bryson Other [employer] Other 04-30-2022 11:00-0400 Body mass index (BMI) [Ratio] 37.23 kg/m2 Mary Bryson Other [employer] Other 04-30-2022 11:00-0400 Body weight 131.54 kg Mary Bryson Other [employer] Other Encounters Encounter Date Encounter Type Care Provider Facility Start: 12-08-2024 End: 12-08-2024 Ana Laura Gibson DPM Work Phone: [facility] Start: 12-08-2024 End: 12-08-2024 Ana Laura Gibson DPM Work Phone: [facility] Start: 12-08-2024 End: 12-08-2024 Office outpatient visit 15 minutes Bony Gibson DPM Work Phone: [facility] Comment on above: Abscess of toe, righ t (Primary Dx); Diabetes mellitus due to underlying condition with diabetic polyneuropathy, unspecified whether detention insulin use ([facility] Pain due to onychomycosis of toenails of both feet Start: 12-08-2024 End: 12-08-2024 ambulatory BONY GIBSON Not Available Start: 11-29-2024 ambulatory Jun Perez Facility :[facility] Start: 11-22-2024 End: 11-22-2024 Bamboo flowsheet Bony Gibson DPM Work Phone: [facility] Start: 11-22-2024 End: 11-22-2024 Bamboo flowsheet Bony Gibson DPM Work Phone: [facility] Start: 11-22-2024 End: 11-22-2024 Office outpatient visit 15 minutes Bony Gibson DPM Work Phone: [facility] Comment on above: Onychomycosis; Toe pain, right; Abscess of toe, right; Diabetes mellitus due to underlying condition with diabetic polyneuropathy, unspecified whether detention insulin use ([facility]) Start: 11-22-2024 End: 11-22-2024 ambulatory BONY GIBSON Not Available Start: 09-29-2024 End: 09-29-2024 ambulatory [facility] Work Phone: Start: 09-29-2024 End: 09-29-2024 Patient encounter procedure [facility] Work Phone: Start: 09-28-2024 Non-patient / Non-visit [facility] Work Phone: Start: 08-17-2024 End: 08-17-2024 Bamboo flowsheet Sb Osorio DO Work Phone: [facility] [address] Start: 08-17-2024 End: 08-17-2024 Bamboo flowsheet [facility] [address] Start: 08-17-2024 End: 08-17-2024 Office outpatient new 45 minutes Sb Osorio DO [facility] Comment on above: EVY (obstructive sle ep apnea); Hypersomnia; Snoring; Class 2 obesity due to excess calories with body mass index (BMI) of 36.0 to 36.9 in adult, unspecified whether serious comorbidity present Start: 08-17-2024 End: 08-17-2024 ambulatory SB OSORIO Not Available Start: 08-08-2024 End: 08-08-2024 ambulatory [facility] Work Phone: Start: 08-08-2024 End: 08-08-2024 [facility] encounter procedure [facility] Work Phone: Start: 07-04-2024 End: 07-04-2024 ambulatory [facility] Work Phone: Start: 07-04-2024 End: 07-04-2024 Patient encounter procedure [facility] Work Phone: Start: 06-29-2024 Non-patient / Non-visit [facility] Work Phone: Start: 04-27-2024 End: 04-27-2024 ambulatory [facility] Work Phone: Start: 04-27-2024 End: 04-27-2024 Patient encounter procedure [facility] Work Phone: Start: 04-20-2024 Non-patient / Non-visit [facility] Work Phone: Start: 04-12-2024 End: 04-12-2024 ambulatory MD Jun Perez Work Phone: [facility] Work Phone: Start: 04-12-2024 End: 04-12-2024 Patient encounter procedure MD Jun Perez Work Phone: [facility] Work Phone: Start: 03-24-2024 End: 03-24-2024 ambulatory MD Jun Perez Work Phone: [facility] Work Phone: Start: 03-24-2024 End: 03-24-2024 Patient encounter procedure MD Jun Perez Work Phone: [facility] Work Phone: Start: 03-22-2024 End: 03-22-2024 ambulatory MD Jun Perez Work Phone: [facility] Work Phone: Start: 03-22-2024 End: 03-22-2024 Patient encounter procedure MD Jun Perez Work Phone: [facility] Work Phone: Start: 03-07-2024 End: 03-07-2024 Patient encounter procedure MD Jun Perez Work Phone: [facility] Work Phone: Start: 03-07-2024 End: 03-07-2024 ambulatory MD Jun Perez Work Phone: [facility] Work Phone: Start: 03-07-2024 Non-patient / Non-visit [facility] Work Phone: Start: 01-11-2024 End: 01-11-2024 ambulatory MD Jun Perez Work Phone: [facility] Work Phone: Start: 01-11-2024 End: 01-11-2024 Patient encounter procedure MD Jun Perez Work Phone: [facility] Work Phone: Start: 01-08-2024 Non-patient / Non-visit MD Xochitl Perez Work Phone: [facility] Work Phone: Start: 01-05-2024 End: 01-05-2024 ambulatory MD Jun Perez Work Phone: [facility] [facility] Work Phone: Start: 01-05-2024 End: 01-05-2024 Patient encounter procedure MD Jun Perez Work Phone: [facility] Work Phone: Start: 01-04-2024 Non-patient / Non-visit MD Xochitl Perez Work Phone: [facility] Work Phone: Start: 12-31-2023 End: 12-31-2023 ambulatory MD Jun Perez Work Phone: [facility] Work Phone: Start: 12-31-2023 End: 12-31-2023 Patient encounter procedure MD Jun Perez Work Phone: [facility] Work Phone: Start: 12-22-2023 (DM) Diabetes Tondra Mapus [facility] Start: 12-22-2023 End: 12-22-2023 ambulatory MD Jun Perez Work Phone: [facility] [employer] Other Start: 12-22-2023 End: 12-22-2023 Discharged Recurring MD Jun Perez Work Phone: [facility] Work Phone: Start: 12-22-2023 Registered Recurring MD Jun Perez Work Phone: [facility] Work Phone: Start: 12-14-2023 End: 12-14-2023 ambulatory Jose Yu Other [employer] Other Start: 12-14-2023 Office outpatient vi sit 25 minutes Jose Adrianaomia [facility] Start: 12-14-2023 Telephone encounter Joes Yu [facility] Start: 12-14-2023 End: 12-14-2023 Patient encounter procedure MD Jun Perez Work Phone: [facility]- Start: 11-20-2023 Patient encounter procedure MD Jun Perez Work Phone: [facility]- Start: 11-19-2023 End: 11-19-2023 ambulatory Jun Perez Other [employer] Other Start: 11-19-2023 Office outpatient vi sit 15 minutes Jun Perez [facility] Start: 11-19-2023 Telephone encounter Tj Solis [facility] Start: 11-18-2023 End: 11-18-2023 ambulatory Jose Yu Other [employer] Other Start: 11-18-2023 Office outpatient ne w 45 minutes Jose Caria [facility] Start: 11-18-2023 End: 11-18-2023 Patient encounter procedure MD Jun Perez Work Phone: [facility] Work Phone: Start: 11-05-2023 End: 11-05-2023 ambulatory MD Jun Perez Work Phone: [facility] Work Phone: Start: 11-05-2023 End: 11-05-2023 Patient encounter procedure MD Jun Perez Work Phone: [facility] [place] Work Phone: Start: 11-04-2023 End: 11-04-2023 ambulatory Duncan Parham Other [employer] Other Start: 11-04-2023 Telephone encounter Tondra Parham [facility] Start: 10-31-2023 End: 10-31-2023 Patient encounter procedure MD Jun Perez Work Phone: [facility] Work Phone: Start: 10-26-2023 End: 10-26-2023 ambulatory MD Jun Perez Work Phone: [facility] Work Phone: Start: 10-26-2023 End: 10-26-2023 Patient encounter procedure MD Jun Perez Work Phone: [facility] [place] Work Phone: Start: 10-21-2023 End: 10-21-2023 Admission to same day surgery center MD Jun Perez Work Phone: [facility] Work Phone: Start: 10-21-2023 End: 10-21-2023 ambulatory MD Jun Perez Work Phone: 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); Mixed hyperlipidemia; Diabetes mellitus with kidney disease (CMS/HCC) Start: 10-15-2023 End: 10-15-2023 ambulatory [facility] Start: 09-28-2023 Telephone encounter Nancy MOSQUEDA Nephrology Start: 09-28-2023 End: 09-28-2023 Office outpatient visit 25 minutes Britney Yu MD Work Phone: [facility] Comment on above: Personality disorder (CMS/HCC) (Primary Dx); Obesity, morbid (CMS/HCC); Hypertensive heart and CKD, ESRD on dialysis (CMS/[facility]); CHF (congestive heart failure), NYHA class II, acute on chronic, combined ([facility]); Diabetes mellitus with kidney disease ([facility]); Mixed hyperlipidemia; Primary hypertension; Medication course changed Start: 09-28-2023 End: 09-28-2023 ambulatory BRITNEY YU [employer] Other Start: 09-25-2023 Patient encounter status Luis Yu MD Work Phone: [facility] Work Phone: Start: 09-17-2023 (DM) Diabetes Duncan [facility] Start: 09-17-2023 Telephone encounter Nancy MOSQUEDA Nephrology Start: 09-17-2023 End: 09-17-2023 ambulatory MD Jun Perez Work Phone: [facility] [employer] Other Start: 09-17-2023 End: 09-17-2023 Patient encounter procedure MD Jun Perez Work Phone: [facility] [place] Work Phone: Start: 09-17-2023 Registered Recurring MD Jun Perez Work Phone: [facility] Work Phone: Start: 09-15-2023 End: 09-15-2023 ambulatory Rodney Victor Other Julian Rez[employer] Other Start: 09-15-2023 Telephone encounter Rodney De La Rosa Director Speech And Hearing Start: 08-17-2023 End: 08-17-2023 ambulatory [facility] Facility:[facility] Start: 06-08-2023 Office outpatient vi sit 25 minutes Jun Perez Work Phone: [facility] 250 DO Work Phone: Start: 05-14-2023 Office outpatient vi sit 25 minutes Jun Perez Work Phone: [facility] 250 DO Work Phone: Start: 05-14-[address] Jun Perez Facility: Start: 05-06-2023 End: 05-07-2023 ambulatory Ritchie Desai Facility:[facility] Start: 05-01-2023 End: 05-01-2023 ambulatory Jun Perez Other [employer] Other Start: 05-01-2023 Telephone encounter Jun Perez [facility] Start: 04-27-2023 ambulatory Odilia Mackenzie Facility:[id number] Start: 04-17-2023 End: 04-17-2023 ambulatory Jun Perez Other [employer] Other Start: 04-17-2023 Office outpatient vi sit 25 minutes Jun Perez [facility] Start: 04-16-2023 End: 04-16-2023 ambulatory Tj Mayo Other [employer] Other Start: 04-16-2023 Office outpatient vi sit 25 minutes Tj Mayo [facility] Start: 04-10-2023 Office outpatient vi sit 25 minutes Jun Perez Work Phone: [facility] 250 DO Work Phone: Start: 04-10-2023 Patient encounter procedure Jun Perez Work Phone: [facility] 250 DO Work Phone: Start: 04-10-[address] Jun Perez Facility: Start: 04-10-2023 End: 04-11-2023 ambulatory TJ MAYO Facility: Start: 04-01-[address] Lashell Betancourt ty:[id number] Start: 03-31-2023 Encounter for preprocedural cardiovascular examination Dr. Lashell Osborn [facility] Start: 03-31-[address] Lashell Betancourt ty:[id number] Start: 03-31-2023 Encounter for preprocedural cardiovascular examination Dr. Lashell Osborn [facility] Start: 03-09-2023 End: 03-09-2023 ambulatory Tj Mayo Other [employer] Other Start: 03-09-2023 Telephone encounter Tj Mayo [facility] Start: 02-17-2023 End: 02-17-2023 ambulatory Jun Perez Other [employer] Other Start: 02-17-2023 Office outpatient vi sit 15 minutes Jun Perez [facility] Start: 02-06-2023 End: 02-06-2023 ambulatory Tj Mayo Other [employer] Other Start: 02-06-2023 Telephone encounter Tj Mayo [facility] Start: 02-04-2023 End: 02-04-2023 ambulatory Tj Mayo Other [employer] Other Start: 02-04-2023 Office outpatient ne w 45 minutes Tj Mayo [facility] Start: 02-04-2023 Telephone encounter Tj Mayo [facility] Start: 01-23-2023 Office outpatient vi sit 25 minutes Jun Perez Work Phone: [facility] 250 DO Work Phone: Start: 01-23-[address] Jun Perez Facility: Start: 12-29-2022 End: 12-29-2022 ambulatory Jun Perez Other [employer] Other Start: 12-29-2022 Telephone encounter Jun Perez [facility] Start: 12-26-2022 Office outpatient ne w 45 minutes Jun Perez Work Phone: [facility] 250 DO Work Phone: Start: 12-26-[address] Malika Hollowayham Facility: Start: 12-02-2022 End: 12-02-2022 ambulatory Jun Perez Other [employer] Other Start: 12-02-2022 Telephone encounter Jun Perez [facility] Start: 12-01-2022 End: 12-01-2022 ambulatory Jun Perez Other [employer] Other Start: 12-01-2022 Office outpatient ne w 60 minutes Jun Perez [facility] Start: 11-25-2022 End: 11-25-2022 ambulatory Edie Morse Other [employer] Other Start: 11-25-2022 Telephone encounter Edie azar [facility] Start: 11-20-2022 End: 11-20-2022 ambulatory Edie Morse Other [employer] Other Start: 11-20-2022 Office outpatient ne w 30 minutes Edie Morse [facility] Start: 09-08-2022 End: 09-08-2022 ambulatory Phyllisfady Reyes Other [employer] Other Start: 09-08-2022 Office outpatient vi sit 15 minutes Phyllis Amy [facility] Start: 05-25-2022 End: 05-25-2022 ambulatory Phyllis Amy Other [employer] Other Start: 05-25-2022 Office outpatient vi sit 15 minutes Phyllis Amy [facility] Start: 04-30-2022 End: 04-30-2022 ambulatory Mary Bryson Other [employer] Other Start: 04-30-2022 Office outpatient vi sit 25 minutes Mary Calvcolleen [facility] Start: 03-13-2013 End: 03-14-2013 Emergency department patient visit NO REFERRING DR Facility:[facility] Patient encounter status Jun Perez Work Phone: -[facility] 250 DO Work Phone: Procedures Date Procedure Procedure Detail Performing Clinician Start: 10-21-2023 Colonoscopy MD Jun Perez Work Phone: Start: 10-15-2023 FOLLOW UP IN CARDIOLOGY BRITNEY YU Start: 09-17-2023 Ultrasonography of bilateral kidneys MD Jun Perez Work Phone: Cataract surgery Jun Whitehead aun Work Phone: Cholecystectomy Jun Virk un Work Phone: Excision of ganglion cyst Roberta Perez Work Phone: NEGATED: Highlighted row has not occurred! Colonoscopy Jun Perez Work Phone: Plan of Treatment Date Care Activity Detail Author Start: 02-16-2025 End: 02-16-2025 Patient encounter procedure 02/16/2025 9:20 AM EDT Procedure Visit [facility] [address] [place] [address] Bony Gibson DPM [address] [address] [facility] Start: 12-08-2024 End: 12-08-2024 Patient encounter procedure 12/08/2024 8:50 AM EST Office Visit [facility] [address] [place] [address] Bony Gibson DPM [address] [address] Abscess of toe, right (Primary Dx); Diabetes mellitus due to underlying condition with diabetic polyneuropathy, 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 whether 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 float 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 ([facility]); Pain due to onychomycosis of toenails of both feet [facility] Comment on above: Abscess of toe, righ t (Primary Dx); Diabetes mellitus due to underlying condition with diabetic polyneuropathy, unspecified whether 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 float 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 (CMS/HCC); Pain due to onychomycosis of toenails of both feet Start: 11-22-2024 End: 11-22-2024 Patient encounter procedure 11/22/2024 9:10 AM EST [facility] [address] [place] [phone] Bony Gibson, DPHomero [address] [facility] [address] [place] [address] Arrived [facility] Comment on above: Arrived Start: 08-17-2024 End: 08-17-2024 Patient encounter procedure 08/17/2024 12:30 PM EDT Office Visit [facility] [address] [facility] [address] [place] [phone] Sb Osorio DO [address] [place], [place] [id number] Arrived [facility] Comment on above: Arrived Start: 07-17-2024 Influenza vaccination Influenza Vacc ine (#1) [facility] Start: 03-28-2024 End: 03-28-2024 Patient encounter procedure 03/28/2024 10:45 AM EDT Office Visit [facility] [address] [facility] [address] [place] [phone] Britney Yu MD [address] [facility] [address] [place] [address] [facility] Start: 10-29-2023 End: 10-15-2024 Basic metabolic 2000 panel - Serum or Plasma Basic Metabolic Panel Lab Routine CHF (congestive heart failure), NYHA class II, acute on chronic, combined (CMS/HCC) Nonischemic cardiomyopathy (CMS/HCC) Medication course changed Expected: 10/29/2023 (Approximate), Expires: 10/15/2024 [facility] Service Area Work Phone: Comment on above: Expected: 10/29/2023 (Approximate), Expires: 10/15/2024 Start: 10-22-2023 End: 10-15-2024 Basic metabolic 2000 panel - Serum or Plasma Basic Metabolic Panel Lab Routine CHF (congestive heart failure), NYHA class II, acute on chronic, combined (CMS/HCC) Nonischemic cardiomyopathy (CMS/HCC) Medication course changed Expected: 10/22/2023 (Approximate), Expires: 10/15/2024 [facility] Work Phone: Comment on above: Expected: 10/22/2023 (Approximate), Expires: 10/15/2024 Start: 10-21-2023 [facility] Start: 10-15-2023 End: 10-15-2023 Patient encounter procedure 10/15/2023 10:45 AM EST Office Visit [facility] [address] 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) CHF (congestive heart failure), NYHA class II, acute on chronic, combined (CMS/HCC) Diabetes mellitus with kidney disease (CMS/HCC) Expected: 10/05/2023 (Approximate), Expires: 09/28/2024 [facility] Service Area Work Phone: Comment on above: Expected: 10/05/2023 (Approximate), Expires: 09/28/2024 Start: 09-28-2023 FUV, Provider: Britney Yu, Status: Pen, Time: 10:15 AM FUV, Provider: Britney Yu, Status: Pen, Time: 10:15 AM -[facility] 250 DO Work Phone: Start: 07-22-2023 FUV, Provider: Odilia Olsen, Status: Pen, Time: 10:00 AM FUV, Provider: Odilia Olsen, Status: Pen, Time: 10:00 AM -[facility] 250 DO Work Phone: Start: 07-17-2023 Influenza vaccination Influenza Vacc ine (#1) [facility] Start: 06-26-2023 FUV, Provider: Lashell Osborn, Status: Pen, Time: 10:30 AM FUV, Provider: Lashell Osborn, Status: Pen, Time: 10:30 AM -[facility] 250 DO Work Phone: Start: 06-22-2023 FUV, Provider: Britney Yu, Status: Pen, Time: 11:00 AM FUV, Provider: Britney Yu, Status: Pen, Time: 11:00 AM -[facility] 250 DO Work Phone: Start: 06-08-2023 FUV, Provider: Britney Yu, Status: Pen, Time: 11:30 AM FUV, Provider: Britney Yu, Status: Pen, Time: 11:30 AM -[facility] 250 DO Work Phone: Start: 05-14-2023 FUV, Provider: Britney Yu, Status: Pen, Time: 11:00 AM FUV, Provider: Britney Yu, Status: Pen, Time: 11:00 AM [facility] Work Phone: Start: 04-27-2023 MUGA, Provider: ANGEL RAVI [facility]VI NUCLEAR 01,[id number], Status: Pen, Time: 2:30 PM MUGA, Provider: MILAGROS [facility] NUCLEAR 01,[id number], Status: Pen, Time: 2:30 PM -[facility] 250 DO Work Phone: Start: 02-24-2023 REST ONLY, Provider: MILAGROS [facility] NUCLEAR 01,[id number], Status: Pen, Time: 12:30 PM REST ONLY, Provider: MILAGROS [facility]VI NUCLEAR 01,[id number], Status: Pen, Time: 12:[address] [facility] 250 DO Work Phone: Start: 02-19-2023 STRESSNUC2, Provider : MILAGROS LIZ NUCLEAR 01,[id number], Status: Pen, Time: 12:30 PM STRESSNUC2, Provider: MILAGROS LYLEI NUCLEAR 01,[id number], Status: Pen, Time: 12:[address] [facility] 250 DO Work Phone: Start: 02-21-2022 COVID-19 Vaccine (2 - Pfizer series) COVID-19 Vaccine (2 - Pfizer series) [facility] Start: 2015 Pneumococcal Vaccine : 65+ Years (1 of 1 - PCV) Pneumococcal Vaccine: 65+ Years (1 of 1 - PCV) [facility] Start: 2000 Zoster Vaccines (1 of 2) Zoste r Vaccines (1 of 2) [facility] Start: 1972 DTaP/Tdap/Td Vaccine s (1 - Tdap) DTaP/Tdap/Td Vaccines (1 - Tdap) [facility] Start: 1969 Urine screening for protein Diabetes: Urine Protein Screening [facility] Start: 1968 Hepatitis C screening Hepatitis C Sc [facility] Start: 1960 Diabetic foot examination Diabetes: Foot Exam [facility] Start: 1960 Glaucoma screening Diabetes: R etinopathy Screening [facility] Start: 1956 Pneumococcal Vaccine : 65+ Years (1 - PCV) Pneumococcal Vaccine: 65+ Years (1 - PCV) [facility] Start: 1950 Creatinine measurement Creatinine Le campos [facility] Start: 1950 Echocardiography Echocardiogram [facility] Start: 1950 Hemoglobin A1c measurement Rosa betes: Hemoglobin A1C [facility] Start: 1950 Lipid panel Lipid Panel [facility] Start: 1950 Medicare Annual Well ness Visit Medicare Annual Wellness Visit (AWV) [facility] Start: 1950 Potassium measurement Potassium Leve l [facility] Start: 1950 Screening for malign ant neoplasm of colon [facility] Patient Education [facility] Work Phone: Renal function 1999 panel - Serum or Plasma [facility] Renal function 1999 panel - Serum or Plasma [facility] Immunizations Immunization Date Immunization Notes Care Provider Kostas bailey 12-08-2005 tetanus toxoid, adsorbed Osvaldo francesco Devon DO Work Phone: [facility] Payers Date Payer Category Payer Self-pay [id number] 2022 Medicare [id number] 2022 Medicare (Managed Care) [employer] [facility] [id number] 1959 Medicare [id number] 1950 Unknown [id number] 2.840.1.884402.3.579.2. 593 1950 Unknown [id number] 2.16840.1.695275.3.579.2. 356 1950 Unknown [id number] 2.16840.1.599229.3.579.2. 356 1950 Unknown [id number] 2.16840.1.414164.3.579.2. 356 1950 Unknown [id number] 2.16840.1.045873.3.579.2. 356 1950 Unknown [id number] 2.16.840.1.731428.3.579.2. 1067 1950 Unknown [id number] 2.16.840.1.197808.3.579.2. 1067 1950 Unknown [id number] 2.840.1.368823.3.579.2. 1067 1950 Unknown [id number] 2.840.1.088642.3.579.2. 1950 Unknown [id number] 2.0.1.083182.3.579.2. 1950 Unknown [id number] 2.0.1.185246.3.579.2. 1243 1950 Unknown [id number] 2.0.1.185855.3.579.2. 1243 1950 Unknown [id number] 2.0.1.646871.3.579.2. 1258 1950 Unknown [id number] 2.0.1.684344.3.579.2. 1258 1950 Unknown [id number] 2.840.1.908277.3.579.2. 1259 Medicare [id number] 2.840.1.930088.19 Medicare [id number] Medicare Medicare [id number] Unknown [id number] Unknown [id number] 2.840.1.896616.19 Unknown [employer] Unknown [id number] 2.840.1.698456.3.579.2. 531 Unknown [id number] 2.0.1.902956.3.579.2. 531 Unknown [id number] 2.16.840.1.642589.3.579.2. 531 Social History Date Type Detail Facility Start: 09-28-2023 End: 12-08-2024 Sex Assigned At [facility] Lesli RABT Other Start: 09-28-2023 End: 12-08-2024 No alcohol use No alcohol use -[facility] 250 DO Work Phone: Start: 04-10-2021 End: 04-29-2023 Tobacco smoking status NHIS Never smoked tobacco (finding) [facility] Start: 1950 Sex Assigned At Male F [facility] Start: 04-29-2023 End: 09-25-2023 Tobacco use and exposure Smokeless tobacco non-user [facility] Work Phone: Start: 09-28-2023 End: 10-15-2023 Alcohol intake Lifetime non-drinker (finding) [facility] Work Phone: Start: 1950 Sex Assigned At Not on file [facility] Work Phone: Start: 09-18-2023 End: 10-15-2023 Exposure to SARS-CoV-2 (event) Not sure [facility] Start: 08-17-2024 End: 12-08-2024 Alcoholic beverage intake Current drinker of alcohol (finding) [facility] How often to you hav e a drink containing alcohol? Monthly or less [facility] How many standard drinks containing alcohol do you have on a typical day? 1 or 2 [facility] How often do you hav e 6 or more drinks on 1 occasion? Never [facility] Start: 09-29-2024 Sex Male (finding) [facility] Medical Equipment Procedure Code Equipment [...] (Accu-Chek Guide Test Strips) strip Start: 03-01-2024 Lancets (Accu-Ch ek Softclix Lancets) misc Start: 09-28-2024 Blood Sugar Diagnostic (Accu-Chek Guide Test Strips) strip Start: 03-01-2024 End: 03-01-2024 Goals Date Patient Goal Desired Activity /State Clinical Notes 12-26-2012 to 12-08-2024 Bony Gibson DPM - 12/08/2024 8:50 AM Gisselle Gibson DPM - 11/22/2024 9:10 AM Sheeba Osorio DO - 08/17/2024 12:30 PM EDT Note Date & Type Note Facility 12-08-2024 History of Presen t illness Narrative Patient: Td Giraldo : 1950 PCP: Jun Perez MD SUBJECTIVE This is a 73 y.o. male that presents today 14 d s/p incision and drainage of abcess with nail avulsion to the right hallux Pt states that they have been following all post op instructions and have been taking antibiotic as prescribed. Pt denies n/f/v/c and has negative pain at post op site. Pt presents today for postoperative follow up. Patient presents today with a CC of elongated, thick nails. Pt states nails have been elongated and thick for many years and cause pain with ambulation in shoegear. Pt has tried previous treatment with minimal relief. Pt presents today for nail care and treatment. Patient is DM2 Allergies: Allergies Allergen Reactions Iodinated Contrast Media Anaphylaxis Past Medical History: Past Medical History: Diagnosis Date 1 kidney Abnormal kidney function CHF (congestive heart failure) ([facility]) History of being hospitalized renal failure Hypertension ([facility]) Kidney stones Type 2 diabetes mellitus ([facility]) Medications: Current Outpatient Medications: ascorbic acid (Vitamin C) 250 MG tablet, Take 250 mg by mouth in the morning., Disp: , Rfl: ASPIRIN 81 MG chewable tablet, 1 (one) time each day at the same time., Disp: , Rfl: atorvastatin (Lipitor) 10 MG tablet, 1 (one) time each day at the same time., Disp: , Rfl: carvedilol (Coreg) 25 MG tablet, Take 25 mg by mouth in the morning and 25 mg in the evening and 25 mg before bedtime., Disp: , Rfl: cholecalciferol (Vitamin D-3) 50 MCG (2000 UT) capsule, Take 2,000 Units by mouth in the morning and 2,000 Units in the evening., Disp: , Rfl: empagliflozin (Jardiance) 25 MG, Take 25 mg by mouth Daily 1/2 po qd, Disp: , Rfl: furosemide (Lasix) 40 MG tablet, if needed., Disp: , Rfl: gabapentin (Neurontin) 100 MG capsule, 1 capsule every 8 (eight) hours., Disp: , Rfl: glipiZIDE (Glucotrol) 5 MG tablet, 1 tablet Orally two times daily, Disp: , Rfl: hydrALAZINE (Apresoline) 25 MG tablet, , Disp: , Rfl: lisinopril 2.5 MG tablet, , Disp: , Rfl: meloxicam (Mobic) 7.5 MG tablet, Take 7.5 mg by mouth Daily, Disp: , Rfl: saw palmetto (Serenoa repens) 1000 MG capsule, 1 capsule., Disp: , Rfl: ROS: General: denies fever, chills, fatigue, malaise GI: denies loose or watery stool on antibiotic OBJECTIVE LE EXAM: DERM: Negative erythema, negative drainage from the right hallux. Elongated thick yellow crumbly digit nails 1 through 9 nail toenails. Diminished hair growth VASC: Palpable pedal pulses bilaterally NEURO: 5.07 Holcomb Temo monofilament test intact to digits and forefoot bilaterally 125Hz tuning fork diminished to 1st MPJ bilaterally ORTHO: Minimal pain on palpation to the right hallux Positive pain on palpation nails 1 through 9 ASSESSMENT 14 d s/p I&D of abscess to the right hallux 1. Abscess of toe, right 2. 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 Pain due to onychomycosis of toenails of both feet PLAN Pt to d/c abx. Patient to continue with OTC oral anti - inflammatories as needed for pain. Pt to keep DSD on area of interest while in shoegear, otherwise may expose to air in a clean environment. Discussed proper foot care with patient today. Debride nails in length and thickness digits 1 through 9 Patient educated today on proper diabetic foot care including monitoring feet daily for any signs of infection openings in the skin or irregularities to both feet. Patient had a diabetic neurological exam today to both their feet and discussed proper shoe gear. Bony Gibson DPM documented in this encounter [facility] 11-22-2024 History of Presen t illness Narrative Patient: Td Giraldo : 1950 PCP: Jun Perez MD SUBJECTIVE This is a 73 y.o. male that presents today with a CC of ingrowing right hallux toenail Pt states problem has been present for the past few weeks. Pt has noticed positive drainage to the affected area and states pain is achey in nature. Treatments have consisted of soaking and trying to remove the ingrown nail on their own with no relief. Patient has had longstanding issue with ingrowing nail and presents today for treatment Patient is type 2 diabetic with peripheral neuropathy and controlled sugars Allergies: Allergies Allergen Reactions Iodinated Contrast Media Anaphylaxis Past Medical History: Past Medical History: Diagnosis Date 1 kidney Abnormal kidney function CHF (congestive heart failure) ([facility]) History of being hospitalized renal failure Hypertension ([facility]) Kidney stones Type 2 diabetes mellitus ([facility]) Medications: Current Outpatient Medications: ascorbic acid (Vitamin C) 250 MG tablet, Take 250 mg by mouth in the morning., Disp: , Rfl: ASPIRIN 81 MG chewable tablet, 1 (one) time each day at the same time., Disp: , Rfl: atorvastatin (Lipitor) 10 MG tablet, 1 (one) time each day at the same time., Disp: , Rfl: carvedilol (Coreg) 25 MG tablet, Take 25 mg by mouth in the morning and 25 mg in the evening and 25 mg before bedtime., Disp: , Rfl: cholecalciferol (Vitamin D-3) 50 MCG (2000 UT) capsule, Take 2,000 Units by mouth in the morning and 2,000 Units in the evening., Disp: , Rfl: empagliflozin (Jardiance) 25 MG, Take 25 mg by mouth Daily 1/2 po qd, Disp: , Rfl: furosemide (Lasix) 40 MG tablet, if needed., Disp: , Rfl: gabapentin (Neurontin) 100 MG capsule, 1 capsule every 8 (eight) hours., Disp: , Rfl: glipiZIDE (Glucotrol) 5 MG tablet, 1 tablet Orally two times daily, Disp: , Rfl: hydrALAZINE (Apresoline) 25 MG tablet, , Disp: , Rfl: lisinopril 2.5 MG tablet, , Disp: , Rfl: meloxicam (Mobic) 7.5 MG tablet, Take 7.5 mg by mouth Daily, Disp: , Rfl: saw palmetto (Serenoa repens) 1000 MG capsule, 1 capsule., Disp: , Rfl: Social History: Social History Socioeconomic History Marital status: Spouse name: Not on file Number of children: Not on file Years of education: Not on file Highest education level: Not on file Occupational History Not on file Tobacco Use Smoking status: Never Smokeless tobacco: Never Substance and Sexual Activity Alcohol use: Yes Drug use: Not on file Sexual activity: Not on file Other Topics Concern Not on file Social History Narrative Not on file Social Drivers of Health Financial Resource Strain: Not on file Food Insecurity: Not on file Transportation Needs: Not on file Physical Activity: Not on file Stress: Not on file Social Connections: Not on file Intimate Partner Violence: Not on file Housing Stability: Not on file ROS: General: denies fever, chills, fatigue, malaise Gastrointestinal: denies abdominal pain, ulcers, or changes in appetite or bowel habits Musculoskeletal: denies arthritis, denies loss of strength, pain to hip, knees, back Cardiovascular: denies CP, palpitations, irregular rhythms OBJECTIVE LE EXAM: DERM: Positive erythema and serous sanguinous drainage from the right hallux with hair growth noted to b/l feet. VASC: Palpable pedal pulsed b/l with warm to cool tibia to toes b/l NEURO: 5.07 Holcomb Temo monofilament test diminished to digits and forefoot bilaterally 125Hz tuning fork diminished to 1st MPJ bilaterally ORTHO: Ankle ROM less than 10 degrees b/l. Positive pain on palpation to right hallux nail ASSESSMENT 1. Onychomycosis 2. Toe pain, right 3. Abscess of toe, right 4. 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 Performed I and D of abcess with total removal of nail to access infection to the right toenail. Pt informed of risks and benefits of procedure including infection,pain,bleeding, reoccurance. Pt consents. Next, 3cc of xylocaine 2% plain injected into affected digit for anesthesia. The affected toe was prepped and draped in usual sterile manner and offending nail was removed with minimal blood loss and positive serosanguinous drainage noted. Wound then was flushed with NSS and DSD applied to digit. Pt is to have a prescription for an antibiotic. Patient educated today on proper diabetic foot care including monitoring feet daily for any signs of infection openings in the skin or irregularities to both feet. Patient had a diabetic neurological exam today to both their feet and discussed proper shoe gear. Bony Gibson DPM documented in this encounter [facility] 08-17-2024 History of Presen t illness Narrative [...] Abnormal kidney function CHF (congestive heart failure) ([facility]) History of being hospitalized renal failure Hypertension ([facility]) Kidney stones Type 2 diabetes mellitus ([facility]) Past Surgical History: Procedure Laterality Date CHOLECYSTECTOMY [...] to be working well for him. His Hallie Sleepiness scale is a 1. His compliance data is fantastic he is using 100 percent of the time greater than 4 hours with an average nightly usage of 8 hours and 4 minutes and residual AHI of 3.9. Plan PSG was reviewed with him Titration study was reviewed with him Compliance data was reviewed and he is compliant as above Hallie Sleepiness scale is a 1 The patient was counseled on proper sleep hygiene and adequate hours of sleep. The patient was counseled on the need for aggressive diet, exercise, and weight loss. The patient was counseled on the risks of stroke, AL, and sudden with EVY, along with the [...] clinic: 1 year documented in this encounter [facility] 07-04-2024 Evaluation note Diagnosis Onset Date Resolution Tim hy kid w cr kid I-IV acute July 04, 2024 10:50am Chronic kidney disease, stage III (moderate) acute June 10:50am Complex renal cyst acute July 04, 2024 10:50am Nephrolithiasis acute July 042023 10:50am Proteinuria acute July 04, 2024 10:50am Secondary hyperparathyroidism acute July 04, 2024 10:50am Thrombocytopenia acute June 162023 10:50am Type 2 diabetes mellitus with diabetic chronic kidney disease acute July 04 10:50am Chronic kidney disease, stage III (moderate) acute July 182023 2:09pm Right peroneal tendinosis acute August 08, 2024 2:09pm Thrush acute July 2:09pm BMI 36.0-36.9,adult acute Novem 2023 9:19am Dietary counseling and surveillance acute September 29, 2024 9:19am HTN (hypertension) acute [facility] er 2023 9:19am Hyperlipidemia acute September 162023 9:19am Type 2 diabetes mellitus with diabetic chronic kidney disease acute September 29, 2024 9:19am [facility] Work Phone: [phone]) 728-807502-06-2024 Evaluation note* Encounter Date Diagnosis Assessment Notes Treatment Notes Treatment Clinical Notes Dec, Dietary counseling and surveillance (ICD-10 [...] diabetes, progressive beta cell , concepts of basal/bolus/correct fabien insulin requirements. Basal: The goal is fasting [...] hyperglycemia, or diabetes medication issues. 6. Prescriptions: Vessix carmelita 3 cgm sent. 7. 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 [facility] with [facility] in the past was negative for obstructive CAD. NYHA 2, ACC B.# HTN# DM - Diabetes is managed at the [facility] diabetes center. # CKD - BMP 11/05/23 sCr 1.66 BUN 43. 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 # Obesity - Has lost > 30 lbs in the last year which has helped his HTN and BP control.PCP: Dr. Zi Parham ([facility]), Dr. Gracia Perez (in [place]) Nuclear MPI in 2022 at [facility] - EF 31%. No ischemia or infarct.Echo in 2022 at [facility] - EF 25-30%MUGA done 04/27/23 at [facility] - EF 27%. EKG 03/27/21 - NSR 63 bpm, 1st degree AVB, iLBBB. EKG 11/18/23 in clinic - NSR 67 bpm, 1st degree AVB, IVCD, nonspecific T wave abnormalities. - BP elevated here today. But pt says his BP at home is 120/70s. See regimen changes below.- GDMT: Prior notes from Dr. Yu ([facility]) say he didn't tolerate Entresto due [...] 1 month with BMP before that visit. [facility] Other 01-29-2024 Evaluation note* Encounter Date Diagnosis Assessment Notes Treatment Notes Treatment Clinical Notes Nov, Type 2 diabetes mellitus with other diabetic kidney complication, without long-term current use of insulin (ICD-10 - E11.29) Nov, Chronic congestive heart failure, unspecified heart failure type (ICD-10 - I50.9) Nov, CKD (chronic kidney disease) stage 2, GFR 60-89 ml/min (ICD-10 - N18.2) [facility] Other 01-04-2024 Evaluation note* Encounter Date Diagnosis [...] verbalized understanding and agreement with treatment plan. [facility] Other 01-03-2024 Evaluation note* Encounter Date Diagnosis [...] - NYHA 2, ACC B. Had a [facility] with [facility] in the past that was negative. 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 # Obesity - Has lost > 30 lbs in the last year which has helped his HTN and BP control.PCP: Dr. Zi Parham ([facility]), Dr. Gracia Perez (in [place]) Nuclear MPI in 2022 at [facility] - EF 31%.Echo in 2022 at [facility] - EF 25-30%MUGA done 04/27/23 at [facility] - EF 27%. EKG 03/27/21 - NSR 63 bpm, 1st degree AVB, iLBBB. EKG 11/18/23 in clinic - NSR 67 bpm, 1st degree AVB, IVCD, nonspecific T wave abnormalities. -I reviewed his last [address] Britney Yu at [facility].- GDMT: Says that he didn't [...] 1 month with BMP before that visit. [facility] History of Present illness Narrative* Britney Yu [...] Noted Nonischemic cardiomyopathy (CMS/HCC) 10/15/2023 Obesity, morbid (CMS/HCC) 09/28/2023 Abnormal EKG 09/25/2023 Cardiomyopathy (CMS/HCC) 09/25/2023 CHF (congestive heart failure), NYHA class II, acute on chronic, combined (CMS/HCC) 09/25/2023 Diabetes mellitus with kidney disease (CMS/HCC) 09/25/2023 First degree atrioventricular block 09/25/2023 Hyperlipidemia [...] months [facility] MD [facility]: 1([phone]) 373-714411-30-2023 Instructions* Patient Instructions* Eric Corcoran MA - [...] Fall Prevention Education Given [facility] Work Phone: [phone]) 735-145611-13-2023 History of Present illness Narrative* Britney Yu [...] Abnormal EKG 09/25/2023 Cardiomyopathy ([facility]) 09/25/2023 CHF (congestive heart failure), NYHA class II, acute on chronic, combined ([facility]) 09/25/2023 Diabetes mellitus with kidney disease ([facility]) 09/25/2023 First degree atrioventricular block 09/25/2023 Hyperlipidemia 09/25/2023 Hypertensive heart and CKD, ESRD on dialysis ([facility]) 09/25/2023 Medication course changed 09/25/2023 Obstructive sleep apnea, adult 09/25/2023 Personal history of COVID-19 09/25/2023 Pre-operative cardiovascular examination 09/25/2023 Primary hypertension 09/25/2023 Type 2 diabetes mellitus without complication ([facility]) 09/25/2023 Assessment: Patient does not appear euvolemic Patient has chronic systolic left heart failure functional class II Patient has diabetes without hypoglycemia with kidney disease Test results were reviewed. Recommendations: 1. Continue Entresto if affordable otherwise go back to hydralazine 2. Follow-up as scheduled Follow up : 6 months Britney Yu MD documented in this [facility] Work Phone: 1(397) 321-875311-13-2023 Instructions* Patient Instructions* Davis Riggs MA - [...] time of your visit. [facility] Work Phone: 1([phone]) 662-202611-02-2023 Evaluation note* Encounter Date Diagnosis Assessment Notes Treatment Notes Treatment Clinical Notes Sep, Dietary counseling and surveillance (ICD-10 - Z71.3) see above Sep, Type 2 diabetes mellitus with diabetic chronic kidney disease (ICD-10 - E11.22) 1. Controlled, a Type 2 diabetes with A1c of 6.7% 09/07/23 2. Blood glucose levels according to [employer] 3 cgm download 09/04/23-09/17/23: Avg glucose 148. [...] or diabetes medication issues. 6. Prescriptions: [facility] in [place] Current Motor CompanylisaBalluun/carmelita 3 cgm sent 09/17/23. Sample carmelita 3 [...] minutes spent on education with Aleah DAVIS, KERA. [facility] 06-02-2023 Evaluation note* Encounter Date Diagnosis Assessment Notes Treatment Notes Treatment Clinical Notes Apr, Type 2 diabetes mellitus with hyperglycemia, without long-term current use of insulin (ICD-10 - E11.65) Handwrote referral for diabetes and MNT through [facility]. Discussed switching from glipizide to ozempic. He prefers to wait at this time. Apr, Chronic congestive heart failure, unspecified heart failure type (ICD-10 - I50.9) Advised he complete the MUGA and adequately discuss symptoms with his Case Assistant. He discussed that he does not have chest pain, dyspnea or significant edema. He has researched his EF and echo results. He does not feel that his symptoms are significant enough to proceed w pacer or defibrillator. Followup w Cardiology. Apr, Chronic kidney disease, stage III (moderate) (ICD-10 - N18.30) Reviewed notes and advised he follow Dr. Solis's recommendations. [facility] Other 06-01-2023 Evaluation note* Encounter Date Diagnosis [...] check iron studies B12 and folate level. [facility] Other 04-04-2023 Evaluation note* Encounter Date Diagnosis Assessment Notes Treatment Notes Treatment Clinical Notes Feb, Bronchitis (ICD-10 - J40) Bronchitis suspected due to wheezes, chest tightness, cough and/or impaired air movement. Medication prescribed. Avoid extreme heat and cold as this may exacerbate inflammation of airways. If wheezing, chest tightness and/or SOB occurs, go to ER. [facility] Other 03-22-2023 Evaluation note* Encounter Date Diagnosis [...] do a work-up to rule it out. [facility] Other 02-13-2023 Evaluation note* Encounter Date Diagnosis Assessment Notes Treatment Notes Treatment Clinical Notes Dec, Type 2 diabetes mellitus with other diabetic kidney complication, without long-term current use of insulin (ICD-10 - E11.29) Dec, Neuropathy of left lower extremity (ICD-10 - G57.92) [facility] Other 01-16-2023 Evaluation note* Encounter Date Diagnosis [...] Nov, Precancerous skin lesion (ICD-10 - L98.9) [facility] Other 01-05-2023 Evaluation note* Encounter Date Diagnosis [...] understanding and is agreeable to treatment plan. [facility] Other 10-24-2022 Evaluation note* Encounter Date Diagnosis [...] the ER for worsening symptoms or concerns. [facility] Other 07-10-2022 Evaluation note* Encounter Date Diagnosis Assessment Notes Treatment Notes Treatment Clinical Notes May, Hordeolum externum of right lower eyelid (ICD-10 - H00.012) [employer] home care material was printed Use the eye ointment as prescribed. Apply warm compresses to your eye 2-3 times a day. Follow-up with your eye doctor if no improvement in 3 to 4 days. [facility] Other 06-15-2022 Evaluation note* Encounter Date Diagnosis [...] pain of right knee (ICD-10 - M25.561) [facility] Other 09-01-2020 History of Present illness Narrative* [...] Patient is no longer receiving care from MD clinic: Transferred care to [facility] with new patient assessment by Dr. Osborn [...] January, there has been further prolongation of MN interval and mild elongation of QRS duration. [...] 6. Will be a great candidate for [facility] Jardiance, will discuss at next visit [facility] Caicedo DO Work Phone: [phone] History of Present illness Narrative* Patient was [...] Patient is no longer receiving care from MD clinic: Transferred care to [facility] with new patient assessment by Dr. Osborn [...] January, there has been further prolongation of MN interval and mild elongation of QRS duration. [...] 6. Will be a great candidate for [facility] Jardijerson, [facility] Work Phone: [phone]) [phone] History of Present illness Narrative* 72 yo [...] on his current medications. No complaints today. [facility]Mil[facility]ros 250 DO Work Phone: [phone]) 399-589102-10-2013 History of Present illness [id number] yo male here to establish care. Has a reported hx of CHF 10 years ago but states his EF has since recovered. He endorses weekly exercise (5x per week) with no issues. State's he very active. No chest pain, palpitations, presyncope/syncope, LE edema, PND, orthopnea. Checks his BP daily and statesits well-controlled on his current medications. No complaints today.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 250 DO Work Phone: Chiey complaint+Reason for visit Narrative* Chief Complaint I42.8 [...] diabetes mellitus with diabetic chronic kidney disease [facility] Work Phone: Chilc complaint+Reason for visit Narrative* Chief Complaint I42.8 [...] Lumbar back pain EVY (obstructive sleep apnea) [facility] Work Phone: Chief complaint+Reason for visit Narrative* Chief Complaint referral for sleep c linic CC Heart Failure Follow Up [facility] [...] diabetes mellitus with diabetic chronic kidney disease [facility] Work Phone: Evaluation noteNo InformationNort Rezee Other Evaluation noteNo assessment information available [facility] Work Phone: Evaluation note* Diagnosis Personality disorder (CMS/HCC)- Primary Unspecified personality disorder Obesity, morbid ([facility]/HCC) Morbid obesity Hypertensive heart and CKD, ESRD on dialysis ([facility]/HCC) CHF (congestive heart failure), NYHA class II, acute on chronic, combined ([facility]/HCC) Diabetes mellitus with kidney disease ([facility]/HCC) Mixed hyperlipidemia Primary hypertension Unspecified essential hypertension Medication course changed documented in this encounter [facility] Work Phone: Evaluation note* Diagnosis CHF (congestive heart failure), NYHA class II, acute on chronic, combined (CMS/HCC) Primary hypertension Unspecified essential hypertension Nonischemic cardiomyopathy (CMS/HCC) Other primary cardiomyopathies Medication course changed Hypertensive heart and CKD, ESRD on dialysis ([facility]/HCC) Mixed hyperlipidemia Diabetes mellitus with kidney disease ([facility]/HCC) documented in this encounter [facility] Work Phone: Evaluation note* Diagnosis Onset Date Resolution Status Rhinitis, allergic acute Tim hy kid w cr kid I-IV acu te Chronic kidney disease, stage III (moderate) acute Complex renal cyst acute Nephrolithiasis acute Proteinuria acute Thrombocytopenia acute Type 2 diabetes mellitus wit h diabetic chronic kidney disease acute [facility] Work Phone: Evaluation note* Diagnosis Onset [...] wit h diabetic chronic kidney disease acute [facility] Work Phone: Evaluation note* Diagnosis Onset [...] wit h diabetic chronic kidney disease acute [facility] Work Phone: Evaluation note* Diagnosis Onset [...] wit h diabetic chronic kidney disease acute [facility] Work Phone: Evaluation note* Diagnosis Onset [...] wit h diabetic chronic kidney disease acute [facility] Work Phone: Evaluation note* Diagnosis Onset [...] pain acute EVY (obstructive sleep apnea) acute [facility] Work Phone: Evaluation note* Diagnosis Onset [...] wit h diabetic chronic kidney disease acute [facility] Work Phone: Evaluation note* Diagnosis Onset Date Resolution Status Tim hy kid w cr kid I-IV acu te Chronic kidney disease, stage III (moderate) acute Complex renal cyst acute Nephrolithiasis acute Proteinuria acute Secondary hyperparathyroidism acute Thrombocytopenia acute Type 2 diabetes mellitus wit h diabetic chronic kidney disease acute [facility] Work Phone: Evaluation note* Diagnosis EVY (obstructive sleep apnea) Obstructive sleep apnea (adult) (pediatric) Hypersomnia Hypersomnia, unspecified Snoring Other dyspnea and respiratory abnormality Class 2 obesity due to excess calories with body mass index (BMI) of 36.0 to 36.9 in adult, unspecified whether serious comorbidity present [facility] Diagnosis Onychomycosis Dermatophytosis of nail Toe pain, right Pain in soft tissues of limb Abscess of toe, right Diabetes mellitus due to underlying condition with diabetic polyneuropathy, unspecified whether 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 float 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 (CMS/HCC) [facility] Diagnosis Abscess of toe, right- Primary Diabetes mellitus due to underlying condition with diabetic polyneuropathy, unspecified whether detention insulin use (CMS/HCC) Pain due to onychomycosis of toenails of both feet documented [facility] this encounter [facility] Author Rodney Victor [facility] October 21, 2023 11:23am Note Date/Time October 21, 2023 1 1:23am [facility] [address] [place] [address] Gastroenterology H&P Signed Patient: Td Giraldo MR#: [id number] : 1950 Acct:[id number] Age/Sex: 72 / M Adm Date: 3 Loc: Room: Type: [facility] Attending Dr: Rodney Victor MD [...] MD Documented By: Rodney Victor MD 10/21/23 112 Signed By: <Electronically signed by Rodney Victor MD> 10/21/23 1123 [facility] Work Phone: history general Narrative - Reported* Type Description Date Medical History chronic renal failure Medical History hyperkalemia Medical History diabetes mellitus Medical History coronary artery disease Medical History sleep apnea Medical History hypertension Medical History obstructive uropathy Medical History CHF Medical History only has one kidney Medical History hypertension Surgical History left wrist ganglion cyst excisi on, volar [facility] Other Hisjzdx general Narrative - Reported* Type Description Date Medical History chronic renal failure Medical History hyperkalemia Medical History diabetes mellitus Medical History coronary artery disease Medical History sleep apnea Medical History hypertension Medical History obstructive uropathy Medical History CHF Medical History only has one kidney Medical History hypertension Surgical History left wrist ganglion cyst excisi on, volar Surgical History b/l cataracts [employer] Other history general Narrative - Reported* Type Description Date Medical History chronic renal failure Medical History hyperkalemia Medical History diabetes mellitus Medical History Congestive heart failure Medical History sleep apnea Medical History hypertension Medical History obstructive uropathy Medical History only has one kidney Surgical History left wrist ganglion cyst excisi on, volar Surgical History b/l cataracts [employer] Other history general Narrative - Reported* Type [...] 06/2015 Hospitalization History ABNORMAL LABS/ DIALYSIS 07/2015 [facility] Other Hishlif general Narrative - Reported* Type Description Date [...] 06/2015 Hospitalization History ABNORMAL LABS/ DIALYSIS 07/2015 [facility] Other [facility] general Narrative - Reported* Type Description Date [...] 06/2015 Hospitalization History ABNORMAL LABS/ DIALYSIS 07/2015 [facility] Other Hisqxuc general Narrative - Reported* Type Description Date [...] 06/2015 Hospitalization History ABNORMAL LABS/ DIALYSIS 07/2015 [facility] Other History of Present illness Narrative* The [...] medication regimen. He denies medication side effects. [facility] [employer] Work Phone: History of Present illness Narrative* [...] medication regimen. He denies medication side effects. [facility] [employer] Work Phone: History of Present illness Narrative* [...] medication regimen. He denies medication side effects. [facility] Work Phone: Hospital Discharge instructions Additional [...] problems. -Follow up with PCP. -Office number [phone].[facility] Work Phone: Reason for referral (narrative)* Consultation (Routine) - Authorized Specialty Diagnoses / Procedures Referred By Contac t Referred To Contact Cardiology Diagnoses CHF (congestive heart failure), NYHA class II, acute on chronic, combined (CMS/HCC) Primary hypertension Procedures Follow Up In Cardiology Britney Yu MD [address] [facility] [address] [place] [address] Britney Yu MD [address] [facility] [address] [place] [address] Referral ID Status Reason Start Date Expiration Date V isits Requested Visits Authorized [id number] Authorized 09/28/2023 09/27/2024 1 1 [facility] Work Phone: reason for referral (narrative)* Consultation (Routine) - Authorized Specialty Diagnoses / Procedures Referred By Contac t Referred To Contact Cardiology Diagnoses CHF (congestive heart failure), NYHA class II, acute on chronic, combined (CMS/HCC) Primary hypertension Nonischemic cardiomyopathy (CMS/HCC) Procedures Follow Up In Cardiology Britney Yu MD [address] [place] [address] Britney Yu MD [address] [place] [address] Referral ID Status Reason Start Date Expiration Date V isits Requested Visits Authorized [id number] Authorized 10/15/2023 10/14/2024 1 1 [facility] Work Phone: reason for visit Narrativenutrition referral discussionNort Rezee Other Summary Purpose Family History No Family History Records FoundUnknown Family Member Name Dates Details Family history [...] Diabetes mellitus Unknown mother Unknown Advance Directives No Advanced Directives Records Found Advance Directive Response Recorded Date/ Time Advance Directives No July 11:15am Advance Directive Response Recorded Date/ Time Advance Directives No July 10:15am Reason for Referral Reason 12/16/22 [place] off ice. Previously saw provider at [facility] ortho Diagnosis 1 Recurrent pain of ri ght knee (M25.561) Referral Organization [facility] Referring Provider First Name Jun Referring Provider Last Name Kun Referring Provider Specialty Family [facility] Referred Organization [facility] Referred Provider Ritchie Desai Referred Address ,[place], [place],[address] Referred Provider Specialty Orthopedic S urgery Referral Priority Routine Referral Appointment Date 2022-12-16 General Notes Becca Boykin 11:40:22 AM >received today, notes locked, attachments made, referral faxed P2P Becca Boykin 12/12/2022 09:25:38 AM >faxed first attempt letter Becca Boykin 12/12/2022 01:42:44 PM >received fax back that pt is scheduled with [facility] Becca Gordillo 12/17/2022 08:00:55 AM >faxed first request for consult notes Becca Boykin 2022 12:58:52 PM >faxed second request for notes Becca Boykin 12/26/2022 05:01:54 PM >received notes, sent for review. Reason 12/26/22 [place] office. pt has data on previous echos, etc Diagnosis 1 Left heart failure w ith left ejection fraction greater than 40 percent (I50.1) Referral Organization [facility] [employer] Referring Provider First Name Jun Referring Provider Last Name Kun Referring Provider Specialty [facility] [employer] Referred Organization [facility] enter Referred Provider Lashell Osborn Referred Address [address] ,[place], [place],[address] Referred Provider Specialty Internal Med icine Referral Priority Routine Referral Appointment Date 2022-12-26 General Notes Becca Boykin 01:12:21 PM >pt was originally referred by Edie Morse and has an appt with [facility] on 12/26/22 Becca Boykin 12/29/2022 05:08:53 PM >faxed first request for consult notes Becca Boykin 12/30/2022 01:56:43 PM >received notes, sent for review. Closing referral at this time. Reason 02/04/23 Pt has re cent labs. copies will also be scanned in Diagnosis 1 CKD (chronic kidney disease) stage 2, GFR 60-89 ml/min (N18.2) Referral Organization [facility] [employer] Referring Provider First Name Jun Referring Provider Last Name Perez Referring Provider Specialty [facility] [employer] Referred Organization [facility] Nephrology Referred Provider Tj Solis Referred Address [address] ,[place],[address] Referred Provider Specialty Nephrology Referral Priority Routine Referral Appointment Date 2023-02-04 General Notes Becca Boykin 12:30:23 PM >received today, sent P2P Becca Boykin 12/05/2022 12:53:06 PM >waitng to see if can schedule since pt, said we are not in his network. TE was sent Becca Boykin 12/05/2022 01:19:03 PM >per availity website no auth is required Reason 12/11/22 [place] preferred - needs nail care and possible toenail removal Diagnosis 1 Diabetic peripheral neuropathy (E11.42) Referral Organization [facility] [employer] Referring Provider First Name Jun Referring Provider Last Name Kun Referring Provider Specialty [employer] Referred Organization [facility] Referred Provider BONY GIBSON Referred Address ,[place],[address] Referred Provider Specialty Podiatry - S urgical Chiropody Referral Priority Routine Referral Appointment Date 2022-12-11 General Notes Becca Boykin 11:23:27 AM >received today, faxed referral Becca Boykin 12/05/2022 01:14:47 PM >patient provided appt date Becca Boykin 12/12/2022 01:27:01 PM >faxed first request for consult notes Becca Boykin 12/15/2022 12:08:55 PM >received notes and sent for review. closing referral at this time. Clinical Notes [id number] Reason 12/10/22 yearly sk in exam Diagnosis 1 Precancerous skin le edith (L98.9) Referral Organization [facility] [employer] Referring Provider First Name Jun Referring Provider Last Name Kun Referring Provider Specialty [facility] [employer] Referred Organization Dermatology Kaelyn christine Referred Provider Tigre Russell Referred Address [address],[place], [place],[address] Referred Provider Specialty Dermatology Referral Priority Routine Referral Appointment Date 2022-12-10 General Notes Becca Boykin 10:49:22 AM >received today, notes locked, attachments made, referral faxed Becca Boykin 12/15/2022 11:00:10 AM >faxed first attempt letter Becca Boykin 12/15/2022 02:09:31 PM >received notes and sent for review Reason CLOSED evaluate Diagnosis 1 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) [facility] Referring Provider First Name Edie Referring Provider Last Name Luciaacher Referring Provider Specialty Nurse Pract itioner Referred Organization [facility] Nephrology Cli osvaldo Grace Referred Provider Tj Solis Referred Address [address],[place], [place],[address] Referred Provider Specialty Nephrology Referral Priority Routine General Notes Becca Boykin 11:14:39 AM >received today Becca Boykin 11/20/2022 11:15:11 AM >waiting for notes to be locked, and [employer] website is currently down to complete PA. will check back Becca Boykin 11/21/2022 09:08:45 AM >[employer] website is still down. will check back Becca Boykin 11/24/2022 09:17:04 AM >[employer] site still down Becca Boykin 11/25/2022 08:54:58 [...] unspecified heart failure type (I50.9) [facility] Referring Provider First Name Edie Referring Provider Last Name Lito Referring Provider Specialty Nurse Pract itionealejandra Referred Organization [facility] enter Referred Provider Hawa Diallo Referred Address [address] ,[place], [place],[address] Referred Provider Specialty Cardiac Surg niurka Referral Priority Routine Referral Appointment Date 2022-12-26 General Notes Becca Boykin 11:08:29 AM >received today, waiting for notes to be locked, and [employer] website is down for Prior Auth. will check back Becca Boykin 11/21/2022 09:08:07 AM >[employer] website is still down at this time. Becca Boykin 11/24/2022 09:16:51 AM >[employer] site still down Becca Boykin 11/25/2022 08:54:58 [...] in right knee ( M25.561) Referral Organization [facility] [place] Referring Provider First Name Edie Referring Provider Last Name Lito Referring Provider Specialty Nurse Pract itioner Referred Organization [facility] Referred Provider Tad Boucher Referred Address [address] [place],[address] Referred Provider Specialty Orthopedic S urgery Referral Priority Routine General Notes Becca Boykin 11:16:24 AM >received today, waiting for notes to be locked, and [employer] website is currently down at the moment. will folllow up Becca Boykin 11/21/2022 09:09:03 AM >[employer] website is still currently down. will check back Becca Boykin 11/24/2022 09:17:20 AM >[employer] site is still down Becca Boykin 11/25/2022 [...] dilated LVEF 31%. * I reviewed prior MD cardiology note dated August 25, 2022. * [...] Patient is no longer receiving care from MD clinic: Transferred care to [facility] with new patient assessment by Dr. Osborn [...] reports that usually calibrated yearly by the MD clinic,will no longer be seen in the MD clinic and referred to the sleep clinic [...] dilated LVEF 31%. * I reviewed prior MD cardiology note dated August 25, 2022. * [...] Patient is no longer receiving care from MD clinic: Transferred care to [facility] with new patient assessment by Dr. Osborn [...] reports that usually calibrated yearly by the MD clinic,will no longer be seen in the MD clinic and referred to the sleep clinic [...] meter Reason for Visit Rhinitis, allergic Tim radha ortega w cr kid I-IV Chronic kidney disease, [...] with diabetic chronic kidney disease Chief Complaint Admit Date RENAL 6 MONTH F/U July 04, 2024 10 :50am Discuss R Knee August 08, 2024 2:09pm METER September 29, 2024 9:19am Reason for Visit Admit Date Tim hy kid w cr kid I-IV July 04 10:50am Chronic kidney disease, stage III (moder ate) July 04, 2024 10:50am Complex renal cyst July 04, 2024 10 :50am Nephrolithiasis July 04, 2024 10 :50am Proteinuria July 04, 2024 10 :50am Secondary hyperparathyroidism June 10:50am Thrombocytopenia July 04, 2024 10 :50am Type 2 diabetes mellitus wit h diabetic chronic kidney disease July 04, 2024 10:50am Chronic kidney disease, stage III (moder ate) August 08, 2024 2:09pm Right peroneal tendinosis July 2:09pm Thrush August 08, 2024 2:09pm BMI 36.0-36.9,adult September 29, 2024 9:19am Dietary counseling and surveillance Jose forrester 2023 9:19am HTN (hypertension) September 29, 2024 9:19am Hyperlipidemia September 29, 2024 9:19am Type 2 diabetes mellitus wit h diabetic chronic kidney disease September 29, 2024 9:19am Additional Source Comments INFORMATION SOURCE (unrecogn ized section and content) DATE CREATED AUTHOR 05/12/2018 [facility] DATE CREATED AUTHOR AUTHOR'S ORGANIZ ATION 11/16/2020 [facility] DATE CREATED AUTHOR AUTHOR'S ORGANIZ ATION 01/08/2023 [facility] dical Specialist DATE CREATED AUTHOR AUTHOR'S ORGANIZ ATION 04/26/2023 [facility] DATE CREATED AUTHOR AUTHOR'S ORGANIZ ATION 05/15/2023 [facility] DATE CREATED AUTHOR AUTHOR'S ORGANIZ ATION 05/15/2023 [employer] DATE CREATED AUTHOR AUTHOR'S ORGANIZ ATION 05/23/2023 [facility] DATE CREATED AUTHOR AUTHOR'S ORGANIZ ATION 08/21/2023 [facility] DATE CREATED AUTHOR AUTHOR'S ORGANIZ ATION 08/19/20[facility] DATE CREATED AUTHOR AUTHOR'S ORGANIZ ATION 11/29/2024 [facility] DATE CREATED AUTHOR AUTHOR'S ORGANIZ ATION 12/10/2024 [facility] dical Specialists EPIC (unrecognized sect ion and content) No Status [...] Up In Cardiology Britney Yu MD [address] [facility] [address] [place] [address] Britney Yu MD [address] [facility] [address] [address] [place] [address] Referral ID Status Reason Start Date Expiration Date V isits Requested Visits Authorized [id number] Authorized 09/28/2023 09/27/2024 1 1 Reason Comments Sleep Apnea Reason Comments Toenail Problem Rt gt nail issue Reason Comments Follow-up 14d s/p rt avulsion Care Teams (unrecognized sec tion and content) [...] Active Tj Solis MD Attending Provider Active Senior Accounts Payable Clerk Relationship Specialty Start Date End Date Jun Perez MD [address] [place] [address] PCP - General 12/26/22 [employer] Payable Clerk Relationship Specialty Start Date End Date Jun [...] Team Status: Active Member Role Status Dates Jnu Perez MD Primary Care Provide r, Attending [...] Member Role Status Dates Jose Yu MD Case Assistant Active Jun Perez MD Primary Care Provider [...] August 08, 2024 End: August 08, 2024 Senior Accounts Payable Clerk Relationship Specialty Start Date End Date Jun Perez MD [address] [place] [facility] [place] [address] PCP - General Family Medicine 04/29/23 Senior Accounts Payable Clerk Relationship Specialty Start Date End Date Jun Perez MD [address] [facility] [place] [id number] PCP - General Family Medicine 04/29/23 Team Status: Active Member Role Status Dates Jun Perez MD Primary Care Provide r, Attending Provider Active Start: September 28, 2024 Team Status: Inactive Member Role Status Dates Jun Perez MD Primary Care Provider Active Start: September 29, 2024 End: September 29, 2024 Duncan Parham APRN Attending Provider Active Start: September 29, 2024 End: September 29, 2024 Senior Accounts Payable Clerk Relationship Specialty Start Date End Date Jun Perez MD [address] [facility] [place] [address] PCP - General Family Medicine 04/29/23 Senior Accounts Payable Clerk Relationship Specialty Start Date End Date Jun Perez MD [address] [facility] [place] [address] PCP - General Family Medicine 04/29/23 Senior Accounts Payable Clerk Relationship Specialty Start Date End Date Jun Perez MD [address] [place] [address] [place] [address] PCP - General Family Medicine 04/29/23 Goals [...] BE BASED ON THE PRIMARY CLINICAL RECORDS. [facility] [employer] [facility]. provides no warranty or guarantee of the accuracy or completeness of information in this document.
[2024-12-26 10:40] LABS: Basophils Percent Auto 0.6 % (0.2-2.0); Eosinophils Absolute Auto 0.1 10^3/uL (0.0-0.7); Eosinophils Percent Auto 2.3 % (0.9-7.0); Hematocrit 46.7 % (42.0-54.0); Hemoglobin 15.1 g/dL (14.0-18.0); Immature Granulocytes Abs Auto 0.02 10^3/uL (0.00-0.03); Immature Granulocytes Pct Auto 0.4 % (0.0-0.5); Lymphocytes Absolute Auto 0.9 10^3/uL (1.2-3.8); Lymphocytes Percent Auto 16.2 % (20.5-60.0); Mean Corpuscular HGB Conc 32.3 g/dL (29.9-35.2); Mean Corpuscular Hemoglobin 26.9 pg (25.9-34.0); Mean Corpuscular Volume 83.2 fL (80.0-94.0); Monocytes Absolute Auto 0.4 10^3/uL (0.3-0.8); Monocytes Percent Auto 7.2 % (1.7-12.0); Neutrophils Absolute Auto 3.9 10^3/uL (1.4-6.5); Neutrophils Percent Auto 73.3 % (43.0-75.0); Platelet Count 155 10^3/uL (150-450); Red Blood Count 5.61 10^6/uL (4.70-6.10); Red Cell Distribution Width 14.6 % (11.0-15.0); White Blood Count 5.3 10^3/uL (4.0-11.0)
[2024-12-26 10:44] LABS: Bilirubin Urine NEGATIVE (NEGATIVE); Blood Urine NEGATIVE (NEGATIVE); Clarity Urine CLEAR (CLEAR); Color Urine YELLOW (YELLOW); Glucose Urine UA >=1000 mg/dL (NEGATIVE); Ketones Urine NEGATIVE (NEGATIVE); Leukocyte Esterase Urine NEGATIVE (NEGATIVE); Nitrite Urine NEGATIVE (NEGATIVE); Protein Urine 30 mg/dL (NEG/TRACE); Urobilinogen Urine 0.2 EU/dL (0.2-1.0)
[2024-12-26 10:54] LABS: Bacteria Urine NONE SEEN #/HPF (NONE SEEN); Mucus Urine NONE SEEN (NONE SEEN); RBC Urine NONE SEEN #/HPF (0-2); Squamous Epithelial Cell Urine RARE #/LPF (NONE/RARE); WBC Urine NONE SEEN #/HPF (NONE SEEN)
[2024-12-26 10:59] LABS: Creatinine Urine Random 96.03 mg/dL (20.00-300.00); Protein Creatinine Ratio Urine 0.61
[2024-12-26 11:46] LABS: Albumin Level 3.7 g/dL (3.4-5.0); Anion Gap 13.3; BUN Creatinine Ratio 16.9; Carbon Dioxide 28.2 mmol/L (21.0-32.0); Chloride 105 mmol/L (98-107); Estimated GFR (African America 49 (>=60 mL/min/1.73m^2); Estimated GFR (Non-African Ame 41 (>=60 mL/min/1.73m^2); Glucose 113 mg/dL (74-106); Magnesium 2.4 mg/dL (1.8-2.4); Phosphorus 3.9 mg/dL (2.6-4.7); Potassium 4.5 mmol/L (3.5-5.1); Sodium 142 mmol/L (136-145); Uric Acid 6.2 mg/dL (3.5-7.2)
[2024-12-27 13:07] LABS: PTH, Intact 54 pg/mL (15-65)
== END 2024-12-26 09:43 | disposition home or self-care (01) ==
LOC: LAB 09:46
PROVIDERS: PCP Family Medicine; Visit Provider Internal Medicine
DX: E11.22 Type 2 diabetes mellitus with diabetic chronic kidney disease (principal); D50.9 Iron deficiency anemia, unspecified; N20.0 Calculus of kidney; I12.9 Hypertensive chronic kidney disease with stage 1 through stage 4 chronic kidney disease, or unspecified chronic kidney disease; N18.30 Chronic kidney disease, stage 3 unspecified; R80.9 Proteinuria, unspecified; N25.81 Secondary hyperparathyroidism of renal origin
CPT/HCPCS: 36415; 80069; 81001; 82306; 82570; 83735; 83970; 84156; 84550; 85025

== ENCOUNTER 2025-02-14 10:19 | Outpatient (RCR) | payer MEDICARE, SELFPAY ==
--- NOTE | 2025-02-14 10:46 | XR_ITS ---
The [address] [address] Patient Name: ZAIN GIRALDO MRN: [id number] date: 1950 Sex: M Assigned Patient Location: LAB Current Patient Location: LAB Accession/Order Number: [id number] Exam Date: 02/14/2025 11:02 Report Date: 02/14/2025 11:04 At the request of: JUN PEREZ MD Procedure: XR hip LT 2V w/ pelvis LEFT HIP WITH AP PELVIS - 3 views COMPARISON: None available CLINICAL DATA: Chronic left hip pain. No recent injury. AP view of the pelvis as well as AP and frog-lateral views of the left hip were obtained. No fracture or dislocation is identified. The hip joint spaces are maintained. There is no significant arthritic disease. The SI joints are intact and show minor sclerosis. There are enthesophytes at the iliac crests. There is also mild degenerative change involving the lower imaged lumbar spine. No soft tissue abnormalities are present. XR/XR hip LT 2V w/ pelvis IMPRESSION: NO ACUTE BONY FINDINGS. Impression dictated by: Melissa Moran M.D.02/14/2025 11:04 AM Dictation Location: [place] [address] Electronically authenticated by: [id number] Y Date: 02/14/2025 11:04
[2025-02-14 11:09] LABS: Basophils Percent Auto 0.4 % (0.2-2.0); Eosinophils Absolute Auto 0.1 10^3/uL (0.0-0.7); Eosinophils Percent Auto 1.9 % (0.9-7.0); Hemoglobin 14.8 g/dL (14.0-18.0); Immature Granulocytes Abs Auto 0.01 10^3/uL (0.00-0.03); Immature Granulocytes Pct Auto 0.2 % (0.0-0.5); Lymphocytes Absolute Auto 0.8 10^3/uL (1.2-3.8); Lymphocytes Percent Auto 16.7 % (20.5-60.0); Mean Corpuscular HGB Conc 31.5 g/dL (29.9-35.2); Mean Corpuscular Hemoglobin 26.6 pg (25.9-34.0); Mean Corpuscular Volume 84.5 fL (80.0-94.0); Mean Platelet Volume 10.4 fL (9.5-13.5); Monocytes Absolute Auto 0.3 10^3/uL (0.3-0.8); Monocytes Percent Auto 6.4 % (1.7-12.0); Neutrophils Absolute Auto 3.5 10^3/uL (1.4-6.5); Neutrophils Percent Auto 74.4 % (43.0-75.0); Platelet Count 128 10^3/uL (150-450); Red Blood Count 5.56 10^6/uL (4.70-6.10); Red Cell Distribution Width 14.9 % (11.0-15.0); White Blood Count 4.7 10^3/uL (4.0-11.0)
[2025-02-14 11:35] LABS: Estimated Average Glucose 140 mg/dL; Glycohemoglobin A1C 6.5 % (4.5-6.2)
[2025-02-14 11:43] LABS: Anion Gap 15.7; BUN Creatinine Ratio 16.5; Calcium 9.1 mg/dL (8.5-10.1); Carbon Dioxide 26.8 mmol/L (21.0-32.0); Chloride 107 mmol/L (98-107); Estimated GFR (African America 48 (>=60 mL/min/1.73m^2); Estimated GFR (Non-African Ame 40 (>=60 mL/min/1.73m^2); Glucose 118 mg/dL (74-106); Magnesium 2.3 mg/dL (1.8-2.4); Potassium 4.5 mmol/L (3.5-5.1); Sodium 145 mmol/L (136-145); TSH W/ REFLEX FT4 1.009 uIU/mL (0.358-3.740)
== END 2025-03-15 09:57 | disposition home or self-care (01) ==
LOC: LAB 10:19
PROVIDERS: PCP Family Medicine; Visit Provider Family Medicine
DX: I12.9 Hypertensive chronic kidney disease with stage 1 through stage 4 chronic kidney disease, or unspecified chronic kidney disease (principal); E11.22 Type 2 diabetes mellitus with diabetic chronic kidney disease; N18.32 Chronic kidney disease, stage 3b; R53.83 Other fatigue; M25.552 Pain in left hip; G89.29 Other chronic pain
CPT/HCPCS: 36415; 73502; 80048; 83036; 83735; 84443; 85025

== ENCOUNTER 2025-03-21 07:51 | Outpatient (RCR) | payer MEDICARE, SELFPAY | END 2025-04-15 23:59 | disposition home or self-care (01) | LOC: HEMC 07:51 | PROVIDERS: PCP Family Medicine; Visit Provider Internal Medicine Hematology & Oncology | DX: D69.6 Thrombocytopenia, unspecified (principal); Z90.49 Acquired absence of other specified parts of digestive tract; Z79.84 Long term (current) use of oral hypoglycemic drugs; D64.9 Anemia, unspecified; E11.22 Type 2 diabetes mellitus with diabetic chronic kidney disease; N18.9 Chronic kidney disease, unspecified | CPT/HCPCS: G0463 ==

== ENCOUNTER 2025-03-27 15:42 | Outpatient (OUT) | payer MEDICARE, SELFPAY ==
[2025-03-27 16:57] LABS: Alanine Aminotransferase 15 U/L (16-63); Albumin Globulin Ratio 1.1; Albumin Level 3.4 g/dL (3.4-5.0); Alkaline Phosphatase 94 U/L (46-116); Anion Gap 12.2; Aspartate Amino Transferase 13 U/L (15-37); BUN Creatinine Ratio 15.8; Bilirubin Total 0.8 mg/dL (0.2-1.0); Calcium 9.2 mg/dL (8.5-10.1); Carbon Dioxide 26.8 mmol/L (21.0-32.0); Chloride 106 mmol/L (98-107); Estimated GFR (African America 48 (>=60 mL/min/1.73m^2); Estimated GFR (Non-African Ame 39 (>=60 mL/min/1.73m^2); Globulin 3.2 g/dL; Glucose 137 mg/dL (74-106); Lactate Dehydrogenase 153 U/L (85-227); Sodium 141 mmol/L (136-145); Total Protein 6.6 g/dL (6.4-8.2)
[2025-03-29 05:07] LABS: Vitamin B12 279 pg/mL (232-1245)
[2025-03-30 12:12] LABS: Lupus Reflex Interpretation Comment: (.); PTT-LA 32.7 sec (0.0-43.5); dRVVT 45.5 sec (0.0-47.0)
[2025-03-30 16:13] LABS: Albumin 3.4 g/dL (2.9-4.4); Alpha-1-Globulin 0.2 g/dL (0.0-0.4); Alpha-2-Globulin 0.8 g/dL (0.4-1.0); Free Kappa Lt Chains,S 37.2 mg/L (3.3-19.4); Free Lambda Lt Chains,S 19.8 mg/L (5.7-26.3); Gamma Globulin 0.8 g/dL (0.4-1.8); Immunoglobulin A, Qn, Serum 161 mg/dL (61-437); Immunoglobulin G, Qn, Serum 843 mg/dL (603-1613); Immunoglobulin M, Qn, Serum 62 mg/dL (15-143); Kappa/Lambda Ratio,S 1.88 (0.26-1.65); Protein, Total 6.2 g/dL (6.0-8.5)
== END 2025-03-27 15:43 | disposition home or self-care (01) ==
LOC: LAB 15:45
PROVIDERS: PCP Family Medicine; Visit Provider Internal Medicine Hematology & Oncology
DX: D69.6 Thrombocytopenia, unspecified (principal)
CPT/HCPCS: 36415; 80053; 82607; 82784; 83521; 83615; 84155; 84165; 85045; 86334

== ENCOUNTER 2025-03-28 10:34 | Outpatient (OUT) | payer MEDICARE, SELFPAY ==
[2025-03-28 11:10] LABS: Basophils Percent Auto 0.6 % (0.2-2.0); Eosinophils Absolute Auto 0.1 10^3/uL (0.0-0.7); Eosinophils Percent Auto 2.2 % (0.9-7.0); Hematocrit 45.3 % (42.0-54.0); Hemoglobin 14.5 g/dL (14.0-18.0); Immature Granulocytes Abs Auto 0.02 10^3/uL (0.00-0.03); Immature Granulocytes Pct Auto 0.4 % (0.0-0.5); Lymphocytes Absolute Auto 0.8 10^3/uL (1.2-3.8); Lymphocytes Percent Auto 16.2 % (20.5-60.0); Mean Corpuscular Hemoglobin 27.2 pg (25.9-34.0); Mean Platelet Volume 10.8 fL (9.5-13.5); Monocytes Absolute Auto 0.4 10^3/uL (0.3-0.8); Monocytes Percent Auto 7.1 % (1.7-12.0); Neutrophils Absolute Auto 3.7 10^3/uL (1.4-6.5); Neutrophils Percent Auto 73.5 % (43.0-75.0); Platelet Count 142 10^3/uL (150-450); Red Blood Count 5.33 10^6/uL (4.70-6.10); Red Cell Distribution Width 14.8 % (11.0-15.0); Reticulocyte Pct Auto 1.06 % (0.60-3.10); White Blood Count 5.1 10^3/uL (4.0-11.0)
== END 2025-03-28 10:35 | disposition home or self-care (01) ==
LOC: LAB 10:35
PROVIDERS: PCP Family Medicine; Visit Provider Internal Medicine Hematology & Oncology
DX: D64.9 Anemia, unspecified (principal); D69.6 Thrombocytopenia, unspecified
CPT/HCPCS: 36415; 85025; 85045

== ENCOUNTER 2025-08-09 07:39 | Outpatient (OUT) | payer MEDICARE, SELFPAY ==
--- OUTSIDE RECORDS SUMMARY | 2021-10-02 11:45 | XMS_ITS | Continuity of Care Document ---
Author Organization [facility] Address [address] [place] [address] Phone Care Team Providers Care Inspector Raw Quartz Name Role Phone Cosmo KEILiz Unavailable Unavailable Allergies, Adverse Reactions, Alerts Substance Reaction Status Criticality No Known Allergies Active No Inform ation Medications Medication Instructions Dosage Effective Dates (start - stop) Status Comments amoxicillin 500 mg capsule take 1 capsule by oral route every 8 hours 500 MG - Active Adult One Daily Multivitamin 0.4 mg tablet - Active furosemide 20 mg tablet take 1 tablet by oral route every day 20 MG - Active glipizide 5 mg tablet take 1 tablet by o ral route 2 times every day before meals 5 MG - Active hydralazine 10 mg tablet take 1 tablet b y oral route 2 times every day with food 10 MG - Active isosorbide mononitrate ER 30 mg tablet,extended release 24 hr take 1 tablet by oral route every day in the morning 30 MG - Active atorvastatin 10 mg tablet take 1 tablet by oral route every day 10 MG - Active cholecalciferol (vitamin D3) 2,000 unit capsule - Active gabapentin 100 mg capsule take 3 capsule by oral route 3 times every day 300 MG - Active carvedilol 6.25 mg tablet - Active aspirin 81 mg effervescent tablet - Active Procedures Procedure Date Intraoral-periapical 1st Film 1 Limited Oral Eval Extract; Erupted Th/exposted Rt 021 Oral Hygiene Instruction Resin Composite 2s; Posterior 0 Resin Composite 4+s; Posterior 20 Oral Hygiene Instruction Resin Composite 3s; Posterior 0 Bitewings Four Films Panoramic Film Comp Oral Eval New/estab Patient 2019 Oral Hygiene Instruction Extract; Erupted Th/exposted Rt 016 Perio Scal & Root Pln 4+ Per Quad Oral Hygiene Instruction Resin Composite 2s; Posterior 5 Extract; Erupted Th/exposted Rt 014 Intraoral-complete Series (bw) 14 Comp Oral Eval New/estab Patient 2013 Advance Directives Directive Yes / No Effective Date File Name No Information Encounters Encounter Description Practice Location Reason(s) For Visit Diagnoses Date Provider Providers Copied on Encounter [facility], [address] [place] [address], [id number], tel:[phone] Dental Clinic DL (chief complaint) Encounter for screening for dental disorders Cosmo CHOUDHURY Liz. [address], [place], [id number], [place]. tel:[phone] [facility], [address] [place] [address], [id number], [place] tel:[phone] Dental Clinic filling (chief complaint) Encounter for screening for dental disorders Cosmo CHOUDHURY Liz. [address], [place], [id number], [place]. tel:[phone] [facility], [address] [place] [address], [id number], [place] tel:[phone] Dental Clinic Fill (chief complaint) Encounter for screening for dental disorders Cosmo CHOUDHURY Liz. [address], [place], [id number], [place]. tel:[phone] [facility], [address] [place] [address], [id number], tel:[phone] Dental Clinic No Information Cosmo CHOUDHURY Liz. [address], [place], [id number], [place]. tel:[phone] [facility], [address], [place], [id number], [place] tel:[phone] Dental Clinic Encounter for screening for dental disorders Cosmo DMD Liz. [address], [place], [id number], [place]. tel:[phone] [facility], [address], [place], [id number], [place] tel:[phone] Dental Clinic dental limited (chief complaint) Encounter for screening for dental disorder Jqauan DMD Flavia. [address] [place], [address], [place]. tel:[phone] [facility], [address], [place], [id number], [place] tel:[phone] Dental Clinic Dental examination Camilo DMD Anne. [address], [place], [id number], [place]. tel:[phone] [facility], [address], [place], [id number], [place] tel:[phone] Dental Clinic Dental examination Camilo DMD Anne. [address], [place], [id number], [place]. tel:[phone] [facility], [address], [place], [id number], [place] tel:[phone] Dental Clinic Dental examination Camilo DMD Anne. [address], [place], [id number], [place]. tel:[phone] [facility], [address], [place], [id number], [place] tel:[phone] Dental Clinic Dental examination Camilo DMD Anne. [address], [place], [id number], [place]. tel:[phone] Family History Family Member Type Diagnosis Age At Onset Father Problem (finding) Mother Problem stroke Father Problem cancer of colon Payers Payer name Insurance type Covered democrat ID Authoriza tion(s) Self Pay Cap [id number] Social History Type Description Quantity Date Captured Comments Alcohol Use Details Unknown Caffeine Use Details Unknown Tobacco Use Status Never smoked tobacco 2020 Smoking Status Never smoker Sex Male Sexual Orientation Straight or heterosexual Gender Identity Male Vital Signs Date / Time: Height Weight BMI Pulse Rate Blood Pressure Temperature Respiratory Rate Body Surface Area Head Circumference Head Circ. Percentile Wt./Zenon. Percentile BMI percentile Pulse Ox Inhaled Ox 3:47 PM 75 /min 162/85 mm[Hg] 99.10 F Chief Complaint And Reason For Visit From encounter dated '10/02/2021 15:45'. DL (chief complaint). Description: DL Reason For Referral Reason For Referral No Information History Of Present Illness Encounter Date Complaint History Of Prese nt Illness DL DL filling filling Fill dental limited [facility] loose, w ant removed Functional Status Date Functional Assessmen t No Information Instructions Date Instruction Additional Infor mation No Information Assessments Type Assessment Date No Information Patient Care Teams Name Effective Dates (start - stop) Status Members No Information
--- OUTSIDE RECORDS SUMMARY | 2025-03-21 10:15 | XMS_ITS ---
Author Organization [facility] [place] Address [address] [place] [address] Care Team Providers Care Scheduler Maintenance Name Role Phone Pallavi Tristan Primary Care Provider Kusum Morris Unavailable [phone] REASON FOR VISIT MD New PT Hem Encounters Encounter Location Date Provider Diagnosis [facility] On[facility] [address] [place] [address] 03/21/2025 Kusum Dailey Plan Of Treatment No Information Progress Notes * Td GIRALDO RDOB: [birth year] (74 yo M)Acc No.[id number]:03/21/2025 UNLOCKED PROGRESS NOTE Progress Notes Patient: Td PATINO Provider: Mc Dailey M.D. :1950 A ge:74 Y S ex:Male Date:03/21/2025 Address:[address] [place], [place] [id number] Pcp:Pallavi Tristan Subjective: * Chief Complaints: * 1 . MD New PT Hem. * Medical History: Objective: * Vitals: Assessment: Plan: * Treatment: * * Electronic signature of Dangelo Dailey MD, [id number] on 08/09/2025 at 07:47 AM EDT Sign off status: Pending Visit Status: V OICEMSG (Voice) * Provider: Mc Dailey M.D. Date: 0 03/21/2025 Generated for Printi ng/Faxing/eTransmitting on: 0 08/09/2025 07:47 AM EDT
--- OUTSIDE RECORDS SUMMARY | 2025-05-02 11:00 | XMS_ITS ---
Author Organization [facility] [place] Address [address] [place] [address] Care Team Providers Care Boat Mechanic Name Role Phone Pallavi Tristan Primary Care Provider Kusum Morris Unavailable [phone] REASON FOR VISIT MD Encounters Encounter Location Date Provider Diagnosis [facility] On[facility] [address] [place] [address] 05/02/2025 Kusum Dailey Plan Of Treatment No Information Progress Notes * Hardik GIRALDOip RDOB: [birth year] (74 yo M)Acc No.[id number]:05/02/2025 UNLOCKED PROGRESS NOTE Progress Notes Patient: Td PATINO Provider: Mc Dailey M.D. :1950 A ge:74 Y S ex:Male Date:05/02/2025 Address:[address] [place], [place] [id number] Pcp:Pallavi Tristan Subjective: * Chief Complaints: * 1 . MD. * Medical History: Objective: * Vitals: Assessment: Plan: * Treatment: * * Electronic signature of Dangelo Dailey MD, [id number] on 08/09/2025 at 07:46 AM EDT Sign off status: Pending Visit Status: C ANC (Cancelled) * Provider: Mc Dailey M.D. Date: 0 05/02/2025 Generated for Printi sade/[place]andler/eTransmitting on: 0 08/09/2025 07:46 AM EDT
--- OUTSIDE RECORDS SUMMARY | 2025-08-09 07:47 | XMS_ITS | Encounter Summary ---
Author Organization [facility] Address [address] [address] Phone Care Team Providers Care Farm Management Adviser Name Role Phone Pallavi Tristan MD Primary Care Provider [phone] Reason for Visit * Reason Comments Med Refill Encounter Details Date Type Department Care Team ([facility] st Contact Info) Description 08/17/2024 Refill [facility] [address] [facility] [address] [place] [address] Britney Yu MD [address] [facility] [address] [place] [address] Nonischemic cardiomyopathy (Multi); Primary hypertension; Mixed hyperlipidemia Social History Tobacco Use Types Packs/Day Years Used Date Smoking Tobacco: Never Smokeless Tobacco: Never Alcohol Use Standard Drinks/Week Comments Never 0 (1 standard drink = 0.6 oz pur e alcohol) Sex and Gender Information Value Date Recorded Sex Assigned at Not on file Legal Sex Male 12:22 PM EST Gender Identity Not on file Sexual Orientation Not on file documented as of this encounter Miscellaneous Notes * Telephone Encounter - BLAYNE Corea - 08/17/2024 2:57 PM EDT documented in this encounter Plan of Treatment Not on file documented as of this encounter Visit Diagnoses Diagnosis Nonischemic cardiomyopathy (Multi) Other primary cardiomyopathies Primary hypertension Unspecified essential hypertension Mixed hyperlipidemia documented in this encounter Additional Health Concerns Assessment Noted Time A fall risk assessment has been complete d for the patient 10/15/2023 11:23 AM EST documented as of this encounter Care Teams Farm Management Adviser Relationship Specialty Start Date End Date Pallavi Tristan MD [address] [place] [address] PCP - General 12/26/22 documented as of this encounter
--- OUTSIDE RECORDS SUMMARY | 2025-08-09 07:47 | XMS_ITS | Clinical Summary ---
Author Organization [facility] Address [address] [place] [address] Phone Care Team Providers Care Warp Bleaching Vat Tender Name Role Phone Pallavi Tristan MD Primary Care Provider [phone] Allergies Active Allergy Reactions Criticality Noted Date Comments Iodinated Contrast Media Shortness of breath High Medications gabapentin (Neurontin) 100 mg capsule Take 1 capsule (100 mg) by mouth 3 times a day. Active SAW PALMETTO ORAL Take by mouth once daily. Active cholecalciferol (Vitamin D3) 50 MCG (2000 UT) tablet Take 1 tablet (50 mcg) by mouth once daily. Active empagliflozin (Jardiance) 25 mg Take 0.5 tablets (12.5 mg) by mouth once daily. Active ferrous sulfate 325 (65 Fe) MG EC tablet Take 65 mg by mouth every other day. Do not crush, chew, or split. Active sacubitriL-valsarta n (Entresto) 97-103 mg tabletIndications:C HF (congestive heart failure), NYHA class II, acute on chronic, combined,Nonischemi c cardiomyopathy (Multi) Take 0.5 tablets by mouth 2 times a day. 30 tablet 11 3 Active atorvastatin (Lipitor) 10 mg tabletIndications:M ixed hyperlipidemia Take 0.5 tablets (5 mg) by mouth once daily. 45 tablet 3 3 Active carvedilol (Coreg) 12.5 mg tabletIndications:N onischemic cardiomyopathy (Multi) Take 1 tablet (12.5 mg) by mouth 2 times a day with meals. 180 tablet 3 3 Active hydrALAZINE (Apresoline) 25 mg tabletIndications:P rimary hypertension Take 1.5 tablets (37.5 mg) by mouth 3 times a day. 405 tablet 3 Active Active Problems Problem Noted Date Diagnosed Date Nonischemic cardiomyopathy (Multi) 10/15/2023 Obesity, morbid (Multi) 09/28/2023 Abnormal EKG 09/25/2023 Cardiomyopathy 09/25/2023 CHF (congestive heart failur e), NYHA class II, acute on chronic, combined 09/25/2023 Diabetes mellitus with kidney disease (Multi) First degree atrioventricular block 09/25/2023 Hyperlipidemia 09/25/2023 Medication course changed 09/25/2023 Obstructive sleep apnea, adult 09/25/2023 Personal history of COVID-19 09/25/2023 Pre-operative cardiovascular examination 023 Primary hypertension 09/25/2023 Family History Medical History Relation Name Comments Diabetes type I Father cardiac disorder Father Relation Name Status Comments Father Social History Tobacco Use Types Packs/Day Years Used Date Smoking Tobacco: Never Smokeless Tobacco: Never Tobacco Cessation:Counseling Given: Not Answered Alcohol Use Standard Drinks/Week Comments Never 0 (1 standard drink = 0.6 oz pur e alcohol) Sex and Gender Information Value Date Recorded Sex Assigned at Not on file Legal Sex Male 12:22 PM EST Gender Identity Not on file Sexual Orientation Not on file Last Filed Vital Signs Vital Sign Reading Time Taken Comments Blood Pressure 130/82 10/15/2023 11:23 AM EST Pulse 64 10/15/2023 11:23 AM EST Temperature - - Respiratory Rate - - Oxygen Saturation - - Inhaled Oxygen Concentration - - Weight 125 kg (275 lb) 10/15/2023 11:23 AM EST Height 188 cm (6' 2 ) 10/15/2023 11:23 AM EST Body Mass Index 35.31 10/15/2023 11:23 AM EST Plan of Treatment Health Maintenance Due Date Last Done Comments CT Colonography 1950 Colonoscopy 1950 Colorectal Cancer Screening 1950 Creatinine Level 1950 Diabetes: Hemoglobin A1C 1950 Diabetes: Urine Protein Screening 1950 Echocardiogram 1950 FIT-DNA (Cologuard) 1950 FIT 1950 Lipid Panel 1950 Medicare Annual Wellness Vis it (AWV) 1950 Potassium Level 1950 Sigmoidoscopy 1950 MMR Vaccines (1 of 1 - Standard series) 1951 Diabetes: Retinopathy Screening 1960 Hepatitis C Screening 1968 Pneumococcal Vaccine (1 of 2 - PCV) 1969 DTaP/Tdap/Td Vaccines (1 - Tdap) 1972 Zoster Vaccines (1 of 2) 2000 RSV High Risk: (Elderly (60+ ) or Population) (1 - Risk 60-74 years 1-dose series) 2010 COVID-19 Vaccine (3 - 2024-2 6 season) 2025 12/27/2021, 05/30/2021 Influenza Vaccine (#1) 2025 HIB Vaccines Aged Out No longer eligi ble based on patient's age to complete this topic HPV Vaccines Aged Out No longer eligi ble based on patient's age to complete this topic Hepatitis A Vaccines Aged Out No long er eligible based on patient's age to complete this topic Hepatitis B Vaccines Aged Out No long er eligible based on patient's age to complete this topic IPV Vaccines Aged Out No longer eligi ble based on patient's age to complete this topic Meningococcal Vaccine Aged Out No kylie ivette eligible based on patient's age to complete this topic Rotavirus Vaccines Aged Out No longer eligible based on patient's age to complete this topic Insurance [employer] Care Teams Warp Bleaching Vat Tender Relationship Specialty Start Date End Date aPllavi Tristan MD [address] [place] [address] [place] [address] PCP - General 12/26/22
--- OUTSIDE RECORDS SUMMARY | 2025-08-09 07:47 | XMS_ITS | Encounter Summary ---
Author Organization [facility] Address [address] [place] [address] Phone Care Team Providers Care Construction Stonemason Name Role Phone Pallavi Tristan MD Primary Care Provider [phone] Encounter Details Date Type Department Care Team (Late st Contact Info) Description 04/10/2023 Orders Only [facility] [address] [place] [address] Conversion, Onbase Social History Tobacco Use Types Packs/Day Years Used Date Smoking Tobacco: Never Assessed Sex and Gender Information Value Date Recorded Sex Assigned at Not on file Legal Sex Male 12:22 PM EST Gender Identity Not on file Sexual Orientation Not on file documented as of this encounter Functional Status * BP Answer Date of Assessment Author 126/72 04/10/2023 3:44 PM EDT Conversio n, [employer] Vitals * Pulse Answer Date of Assessment Author 64 04/10/2023 3:44 PM EDT Conversio n, [employer] Vitals documented as of this encounter Plan of Treatment Scheduled Orders Name Type Priority Associated Diagnoses Orde r Schedule OUTSIDE LAB SCAN Lab Ordered: 04/10/2023 OUTSIDE LAB SCAN Lab Ordered: 04/10/2023 documented as of this encounter Visit Diagnoses Not on filedocumented in this encounter Care Teams Construction Stonemason Relationship Specialty Start Date End Date Pallavi Tristan MD [address] [place] [address] [address] [place] [address] PCP - General 12/26/22 documented as of this encounter
--- OUTSIDE RECORDS SUMMARY | 2025-08-09 07:47 | XMS_ITS | Clinical Summary ---
Author Organization [facility] Address [address] [place] [address] Care Team Providers Care Bulkhead Carpenter Name Role Phone Pallavi Tristan MD Primary Care Provider Allergies Active Allergy Reactions Criticality Noted Date Comments Iodinated Contrast Media Anaphylaxis High 04/29/2023 Medications saw palmetto (Serenoa repens) 1000 MG capsule 1 capsule. Active hydrALAZINE (Apresoline) 25 MG tablet 03/12/2023 Active glipiZIDE (Glucotrol) 5 MG tablet 1 tablet Orally two times daily Active gabapentin (Neurontin) 100 MG capsule 1 capsule every 8 (eight) hours. Active carvedilol (Coreg) 25 MG tablet Take 25 mg by mouth in the morning and 25 mg in the evening and 25 mg before bedtime. Active atorvastatin (Lipitor) 10 MG tablet 1 (one) time each day at the same time. Active furosemide (Lasix) 40 MG tablet if needed. Active ASPIRIN 81 MG chewable tablet 1 (one) time each day at the same time. Active cholecalciferol (Vitamin D-3) 50 MCG (2000 UT) capsule Take 2,000 Units by mouth in the morning and 2,000 Units in the evening. Active lisinopril 2.5 MG tablet 04/17/2023 Active ascorbic acid (Vitamin C) 250 MG tablet Take 250 mg by mouth in the morning. Active meloxicam (Mobic) 7.5 MG tablet Take 7.5 mg by mouth Daily Active empagliflozin (Jardiance) 25 MG Take 25 mg by mouth Daily 1/2 po qd Active Active Problems Problem Noted Date Diagnosed Date Alteration of awareness 08/14/2024 Transient global amnesia 08/14/2024 Diabetes mellitus without complication Internal derangement of right knee 04/29/2023 Polyneuropathy due to type 2 diabetes mellitus 0 04/29/2023 Primary osteoarthritis 04/29/2023 Atrophy of right kidney 10/10/2015 Chronic systolic congestive heart failure 2014 Obesity (BMI 30.0-34.9) 10/05/2015 Essential hypertension 10/05/2015 CKD (chronic kidney disease) stage 3, GFR 30-59 ml/min 10/05/2015 Overview (04/30/2023): Suspected from DM2, baseline Aug 2015 1.5-1.9 Immunizations Immunization Administration Dates Next Due Tetanus toxoid, adsorbed 12/08/2005 Family History Medical History Relation Name Comments Depression Father Irritable bowel syndrome Father Relation Name Status Comments Daughter 3 daughters Father Mother Son 2 sons Social History Tobacco Use Types Packs/Day Years Used Date Smoking Tobacco: Never Smokeless Tobacco: Never Tobacco Cessation:Counseling Given: Yes Alcohol Use Standard Drinks/Week Comments Yes 0 (1 standard drink = 0.6 oz pur e alcohol) AUDIT-C Answer Date Recorded Q1: How often do you have a drink containing alc ohol? Monthly or less 08/14/2024 Q2: How many drinks containi ng alcohol do you have on a typical day when you are drinking? 1 or 2 08/14/2024 Q3: How often do you have si x or more drinks on one occasion? Never 08/14/2024 Sex and Gender Information Value Date Recorded Sex Assigned at Not on file Legal Sex Male 8:26 PM EDT Gender Identity Not on file Sexual Orientation Not on file Last Filed Vital Signs Vital Sign Reading Time Taken Comments Blood Pressure 130/84 08/17/2024 12:41 PM EDT Pulse 52 08/17/2024 12:41 PM EDT Temperature - - Respiratory Rate 16 04/27/2025 10:18 AM EDT Oxygen Saturation 97% 08/17/2024 12:41 PM EDT Inhaled Oxygen Concentration - - Weight 120 kg (265 lb) 04/27/2025 10:18 AM EDT Height 188 cm (6' 2 ) 04/27/2025 10:18 AM EDT Body Mass Index 34.02 04/27/2025 10:18 AM EDT Plan of Treatment Health Maintenance Due Date Last Done Comments CT Colonography 1950 Colonoscopy 1950 Colorectal Cancer Screening 1950 FIT-DNA 1950 FIT 1950 FOBT 1950 Sigmoidoscopy 1950 Pneumococcal Vaccine: 65+ Years (1 of 1 - PCV) 001 Influenza Vaccine (#1) 2025 Insurance [employer] MEDICARE ADVANTAGE Care Teams Bulkhead Carpenter Relationship Specialty Start Date End Date Pallavi Tristan MD PCP - General Family Medicine 04/29/23
--- OUTSIDE RECORDS SUMMARY | 2025-08-09 07:47 | XMS_ITS | Patient Health Record ---
Author Organization [facility] [place] Address [address] [place] [address] Care Team Providers Care Farm Contractor Buyer Name Role Phone Pallavi Tristan Primary Care Provider Kusum Morris Unavailable [phone] Results Component Value Reference Range Notes Vitamin B12 (Not yet reviewe d by provider) Interpretation: Performing Lab: Notes/Report: [facility] , Vitamin B12 481 252-5117 pg/mL Performed at: - [facility] [place] Host/Hostess Restaurant: Robin Mead PhD, Phone: [phone] [address] [place], [place] [id number] Performing Lab: see note - [facility] LB PROF 14(COMP METB) (Not yet reviewed by provider) Interpretation: Performing Lab: Notes/Report: [facility] , Sodium 141 136-145 mmol/L Potassium 4.0 3.5-5.1 mmol/L Chloride 106 98-107 mmol/L Carbon Dioxide 26.8 21.0-32.0 mmol/L Anion Gap 12.2 Glucose 137 74-106 mg/dL Blood Urea Nitrogen 27.0 7.0-18.0 mg/dL Creatinine 1.71 0.70-1.30 mg/dL Estimated GFR ( Polina 48 >=60 mL/min/1.73m 2 Estimated GFR (Non- Karely 39 >=60 mL/min/1.73m 2 BUN Creatinine Ratio 15.8 Calcium 9.2 8.5-10.1 mg/dL Bilirubin Total 0.8 0.2-1.0 mg/dL Aspartate Amino Transferase 13 15-37 U/L Alanine Aminotransferase 15 16-63 U/L Alkaline Phosphatase 94 46-116 U/L Total Protein 6.6 6.4-8.2 g/dL Albumin Level 3.4 3.4-5.0 g/dL Globulin 3.2 Albumin Globulin Ratio 1.1 Performing Lab: see note ML - [facility] LB LDH (Not yet reviewed by pro vider) Interpretation: Performing Lab: Notes/Report: [facility] , Lactate Dehydrogenase 153 85-227 U/L Performing Lab: see note ML - [facility] LB Reticulocyte Pct Auto (Not y et reviewed by provider) Interpretation: Performing Lab: Notes/Report: [facility] , Reticulocyte Pct Auto 1.06 0.60-3.10 % Performing Lab: see note ML - [facility] LB CBC AUTO DIFF (Not yet revie wed by provider) Interpretation: Performing Lab: Notes/Report: [facility] , White Blood Count 5.1 4.0-11.0 10 3/uL Red Blood Count 5.33 4.70-6.10 10 6/uL Hemoglobin 14.5 14.0-18.0 g/dL Hematocrit 45.3 42.0-54.0 % Mean Corpuscular Volume 85.0 80.0-94.0 fL Mean Corpuscular Hemoglobin 27.2 25.9-34.0 pg Mean Corpuscular HGB Conc 32.0 29.9-35.2 g/dL Red Cell Distribution Width 14.8 11.0-15.0 % Platelet Count 142 150-450 10 3/uL Mean Platelet Volume 10.8 9.5-13.5 fL Neutrophils Percent Auto 73.5 43.0-75.0 % Lymphocytes Percent Auto 16.2 20.5-60.0 % Monocytes Percent Auto 7.1 1.7-12.0 % Eosinophils Percent Auto 2.2 0.9-7.0 % Basophils Percent Auto 0.6 0.2-2.0 % Immature Granulocytes Pct Auto 0.4 0.0-0.5 % Neutrophils Absolute Auto 3.7 1.4-6.5 10 3/uL Lymphocytes Absolute Auto 0.8 1.2-3.8 10 3/uL Monocytes Absolute Auto 0.4 0.3-0.8 10 3/uL Eosinophils Absolute Auto 0.1 0.0-0.7 10 3/uL Basophils Absolute Auto 0.0 0.0-0.1 10 3/uL Immature Granulocytes Abs Auto 0.02 0.00-0.03 10 3/uL Performing Lab: see note - [facility] LB Lupus Anticoagulant Reflex ( Not yet reviewed by provider) Interpretation: Performing Lab: Notes/Report: [facility] , PTT-LA 32.7 0.0-43.5 sec dRVVT 45.5 0.0-47.0 sec Lupus Reflex Interpretation Comment: . [address] [place], [place] [id number] Performed at: [facility] Host/Hostess Restaurant: Beck Crowe MD, Phone: [phone] No lupus anticoagulant was detected. Performing Lab: see note - [facility] LB EMILY, PE and FLC, Serum (Not yet reviewed by provider) Interpretation: Performing Lab: Notes/Report: [facility] , Immunoglobulin G, Qn, Serum 841 437-1890 mg/d L Immunoglobulin A, Qn, Serum 161 61-437 mg/dL Immunoglobulin M, Qn, Serum 62 15-143 mg/dL Protein, Total 6.2 6.0-8.5 g/dL Albumin 3.4 2.9-4.4 g/dL Wnehk-7-Qlbuzjro 0.2 0.0-0.4 g/dL Znmxv-3-Rvsrymge 0.8 0.4-1.0 g/dL Beta Globulin 1.0 0.7-1.3 g/dL Gamma Globulin 0.8 0.4-1.8 g/dL M-Tavo Not Observed Not Observed g/dL Globulin, Total 2.8 2.2-3.9 g/dL A/G Ratio 1.3 0.7-1.7 Immunofixation Result, Serum Comment . No monoclonality detected. Please note: Comment . Protein electrophoresis scan will follow via computer, mail, or button clamper delivery. Free [place] Lt Chains,S 37.2 3.3-19.4 mg/L Free Lambda Lt Chains,S 19.8 5.7-26.3 mg/L [place]/Lambda Ratio,S 1.88 0.26-1.65 Host/Hostess Restaurant: Robin Mead PhD, Phone: [phone] Performed at: [address] [id number] Performing Lab: see note LC - [facility] LB Reason For Referral No Information Encounters Encounter Location Date Provider Diagnosis [facility] On[facility] [address] [place] [address] 03/21/2025 Kusum Dailey Plan Of Treatment Pending Test Test Name Order Date CBC AUTO DIFF 03/28/2025 LDH 03/27/2025 PROF 14(COMP METB) 03/27/2025 EMILY, PE and FLC, Serum 03/27/2025 Reticulocyte Pct Auto 03/28/2025 Vitamin B12 03/27/2025 Lupus Anticoagulant Reflex 03/27/2025 Insurance Providers Payer Name Payer Address Payer Phone Subscriber Number Group Number Insured Name Patient Relationship to Insured Coverage Start Date Coverage End Date [employer] MEDICARE ADV PLAN [address] [address] [place] [address] [id number] Td Alcantara Self - patient is the insured
--- OUTSIDE RECORDS SUMMARY | 2025-08-09 07:47 | XMS_ITS | Clinical Summary ---
Author Organization [facility] Address [address] [facility], [address] [place] [address] Care Team Providers Care Company Controller Name Role Phone Jerry Marquez DO Primary Care Provider Allergies Active Allergy Reactions Criticality Noted Date Comments Iodides Anaphylaxis High 10/05/2015 Medications carvedilol (COREG) 12.5 MG tablet Take 12.5 mg by mouth every morning Active carvedilol (COREG) 25 MG tablet Take 25 mg by mouth nightly Active atorvastatin (LIPITOR) 10 MG tablet Take 5 mg by mouth daily Active aspirin 81 MG tablet Take 81 mg by mouth daily Active Ascorbic Acid (VITAMIN C) 500 MG tablet Take 1,000 mg by mouth daily Active Zion-3 Fatty Acids (FISH OIL) 1200 MG CAPS Take 1,200 mg by mouth 2 times daily Active Ginseng 100 MG CAPS Take 100 mg by mouth 2 times daily Active Garlic 1000 MG CAPS Take 1,000 mg by mouth daily Active Cholecalciferol (VITAMIN D3) 2000 UNITS CAPS Take 2,000 Units by mouth 2 times daily Active Active Problems Problem Noted Date Diagnosed Date Atrophy of right kidney 10/10/2015 Chronic systolic congestive heart failure 2014 GOLD (acute kidney injury) 10/05/2015 Overview (10/05/2015): Suspected ATn from volume depletion related to diarrheal losses, baseline about 1 month ago August 2014 was 1.5-1.9, About 6 months (February 2015) ago it was 1.2 CKD (chronic kidney disease) stage 3, GFR 30-59 ml/min 10/05/2015 Overview (10/05/2015): Suspected from DM2, baseline Aug 2015 1.5-1.9 DM2 (diabetes mellitus, type 2) 10/05/2015 Overview (10/05/2015): For 10 years Diarrhea 10/05/2015 Essential hypertension 10/05/2015 Obesity (BMI 30.0-34.9) 10/05/2015 Uremia 10/05/2015 High anion gap metabolic acidosis 10/05/2015 Type 2 diabetes mellitus with diabetic nephropat hy Social History Tobacco Use Types Packs/Day Years Used Date Smoking Tobacco: Never Assessed Sex and Gender Information Value Date Recorded Sex Assigned at Not on file Legal Sex Male 11:58 PM EST Gender Identity Not on file Sexual Orientation Not on file Last Filed Vital Signs Vital Sign Reading Time Taken Comments Blood Pressure 126/67 10/10/2015 7:00 AM EST Pulse 80 10/10/2015 7:00 AM EST Temperature 36.9 C (98.4 F) 10/10/2015 7:00 AM EST Respiratory Rate 18 10/10/2015 7:00 AM EST Oxygen Saturation 99% 10/10/2015 7:00 AM EST Inhaled Oxygen Concentration - - Weight 119.4 kg (263 lb 4.8 oz) 10/09/2015 6:00 AM EST Height 188 cm (6' 2 ) 10/05/2015 4:42 AM EST Body Mass Index 33.81 10/05/2015 4:42 AM EST Plan of Treatment Not on file Insurance [employer] Care Teams Company Controller Relationship Specialty Start Date End Date Jerry Marquez DO [address] [place] [address] PCP - General 10/05/15
--- OUTSIDE RECORDS SUMMARY | 2025-08-09 07:47 | XMS_ITS | Clinical Summary ---
Author Organization [facility] Address [facility] [id number] [address] [place] [address] Care Team Providers Care Charge Weigher Name Role Phone Pallavi Tristan MD Primary Care Provider [phone] Allergies Active Allergy Reactions Criticality Noted Date Comments Iodinated Contrast Media Anaphylaxis High 09/20/2021 Medications atorvastatin (LIPITOR) 10 mg tablet Take 0.5 tablets (5 mg total) by mouth in the morning. Active gabapentin (NEURONTIN) 100 mg capsule Take 1 capsule (100 mg total) by mouth 3 (three) times a day. Active carvediloL (COREG) 25 mg tablet Take 0.5 tablets (12.5 mg total) by mouth 3 (three) times a day. Active glipiZIDE (GLUCOTROL) 5 mg tablet Take 1 tablet (5 mg total) by mouth in the morning and 1 tablet (5 mg total) in the evening. Take before meals. Active furosemide (LASIX) 20 mg tablet Take 1.5 tablets (30 mg total) by mouth as needed. Active cholecalciferol , vitamin D3, (VITAMIN D3) 2,000 units capsule Take 1 capsule (2,000 Units total) by mouth in the morning and 1 capsule (2,000 Units total) before bedtime. Active lisinopriL (PRINIVIL,ZESTR IL) 2.5 mg tablet Take 1 tablet (2.5 mg total) by mouth in the morning. 04/17/2023 Active hydrALAZINE (APRESOLINE) 25 mg tablet Take 1.5 tablets (37.5 mg total) by mouth 3 (three) times a day. 03/12/2023 Active ascorbic acid, vitamin C, (VITAMIN C) 250 mg tablet Take 1 tablet (250 mg total) by mouth in the morning. Active SAW PALMETTO ORAL Take 1,000 mg by mouth in the morning. Active Active Problems No known active problems Family History Relation Name Status Comments Father Mother Social History Tobacco Use Types Packs/Day Years Used Date Smoking Tobacco: Never Smokeless Tobacco: Never Alcohol Use Standard Drinks/Week Comments Not Currently 0 (1 standard drink = 0.6 oz pur e alcohol) Childcare Answer Date Recorded Childcare Unknown 04/27/2019 Employment Answer Date Recorded Employment Unknown 04/27/2019 Sex and Gender Information Value Date Recorded Sex Assigned at Not on file Legal Sex Male 9:25 AM EST Gender Identity Not on file Sexual Orientation Not on file Last Filed Vital Signs Vital Sign Reading Time Taken Comments Blood Pressure 153/87 05/20/2023 2:43 PM EDT Pulse 63 05/20/2023 2:28 PM EDT Temperature 36.5 C (97.7 F) 05/20/2023 2:05 PM EDT Respiratory Rate 12 05/20/2023 2:43 PM EDT Oxygen Saturation 97% 05/20/2023 2:43 PM EDT Inhaled Oxygen Concentration - - Weight 127 kg (280 lb) 05/20/2023 11:38 AM EDT Height 188 cm (6' 2 ) 05/20/2023 11:38 AM EDT Body Mass Index 35.95 05/20/2023 11:38 AM EDT Plan of Treatment Health Maintenance Due Date Last Done Comments Depression Screening 1962 Tobacco Screening 1962 DTaP,Tdap and Td Vaccines (1 - Tdap) 1969 Zoster (Shingles) Vaccine (1 of 2) 2000 Fall Risk Screening 2015 Adult BMI Screening 05/20/2024 05/20/2023 COVID-19 Vaccine ( season) 07/17/202509/2022, 05/30/2021 Influenza Vaccine 07/17/2025 Medical Devices Not on file Insurance [employer] MEDICARE Care Teams Charge Weigher Relationship Specialty Start Date End Date Pallavi Tristan MD PCP - General Family Medicine 05/11/23
--- OUTSIDE RECORDS SUMMARY | 2025-08-09 07:47 | XMS_ITS | Encounter Summary ---
Author Organization [facility] Address [address] [place] [address], [address] [place] [address] Care Team Providers Care Aluminum Molder Name Role Phone Jerry Marquez DO Primary Care Provider Encounter Details Date Type Department Care Team (Late st Contact Info) Description 10/15/2015 FollowUp Telephone Encounter [facility] [address] [place] [address] [phone] Pita Martell RN Social History Tobacco Use Types Packs/Day Years Used Date Smoking Tobacco: Never Assessed Sex and Gender Information Value Date Recorded Sex Assigned at Not on file Legal Sex Male 11:58 PM EST Gender Identity Not on file Sexual Orientation Not on file documented as of this encounter Plan of Treatment Not on file documented as of this encounter Visit Diagnoses Not on filedocumented in this encounter Care Teams Aluminum Molder Relationship Specialty Start Date End Date Jerry Marquez DO [address] [place] [address] PCP - General 10/05/15 documented as of this encounter
--- OUTSIDE RECORDS SUMMARY | 2025-08-09 07:47 | XMS_ITS | Encounter Summary ---
Author Organization [facility] Address [address] [place] [address] Care Team Providers Care Digital Data Analyst Name Role Phone Pallavi Tristan MD Primary Care Provider [phone] Encounter Details Date Type Department Care Team (Late st Contact Info) Description 05/14/2023 Abstract [facility] [address] [place] [address] Ritchie Desai DO [address] [place] [address] Social History Tobacco Use Types Packs/Day Years [...] on filedocumented in this encounter Care Teams Digital Data Analyst Relationship Specialty Start Date End Date Pallavi Tristan MD PCP - General Family Medicine 04/29/23 documented as of this encounter
--- OUTSIDE RECORDS SUMMARY | 2025-08-09 07:47 | XMS_ITS | Encounter Summary ---
Author Organization [facility] Address [address] [place] [address] Care Team Providers Care Small Parts Assembler Name Role Phone Pallavi Tristan MD Primary Care Provider [phone] Encounter Details Date Type Department Care Team (Late st Contact Info) Description 06/12/2023 Abstract [facility] [address] [place] [address] Gracia Field [employer] Social History Tobacco Use Types Packs/Day Years Used Date Smoking Tobacco: Never Smokeless Tobacco: Never Tobacco Cessation:Counseling Given: Not Answered Alcohol Use Standard Drinks/Week Comments Not Currently [...] on filedocumented in this encounter Care Teams Small Parts Assembler Relationship Specialty Start Date End Date Pallavi Tristan MD PCP - General Family Medicine 04/29/23 documented as of this encounter
--- OUTSIDE RECORDS SUMMARY | 2025-08-09 07:51 | XMS_ITS | CCD ---
Author Organization [facility] Care Team Providers Care Special Programs Director Name Role Phone NO REFERRING Unavailable Unavailable [employer] Unavailable Unavailable [facility], JNO Unavailable Unavailable Phyllis Reyes Unavailable Mary Bryson Unavailable Jun Perez Unavailable Unavailable Unavailable Edie Morse Unavailable Jun Perez Unavailable MayoTj Unavailable TJ HUBER Attending Unavailable MAYO, TJ Consulting Unavailable MAYOARAUL Admitting Unavailable Dr. Malika Patel Primary Care Robb Osborn, Dr. Jerez Attending Unavailable Anurag, Dr. Jerez Referring Unavailable Chris, Dr. Jun Patel Primary Care Unav ailable Anruag, Dr. Jerez Attending Unavailable Anurag, Dr. Jerez Referring Unavailable Chris, Dr. Jun Patel Primary Care Odilia Sotelo Attending Unavailable Odilia Mackenzie Referring Unavailable Chris, Dr. Jun Patel Primary Care UnaMD BRITNEY Rose Attending Unavailable MD BRITNEY YU Referring Unavailable Odilia Mackenzie Attending Unavailable Chris, Dr. Jun Patel Primary Care Unaruthy ailable Anurag, Dr. Jerez Attending Unavailable Chris, Dr. Jun Patel Primary Care Unaruthy ailronaldo Osborn, Dr. Jerez Attending Unavailable Chris, Dr. Jun Patel Primary Care Unav Ritchie Vance Admitting Unavail able CAROLEE GONZALEZ Primary Care Unavailable Ritchie Desai Attending Unavail able CAROLEE GONZALEZ Primary Care Unavailable Ritchie Desai Attending Unavail able Ritchie Desai Admitting Unavail able Rodney Victor Unavailable Mapus, Tondra Unavailable MD Jun Perez Primary Care Provider Mapus, STATIONARY FIREMAN Tondra K Attending Provider [phone] MD Tj Huber Attending Provider Jun Perez MD Primary Care Provider Jun Perez MD Primary Care Provider Unavailable MD Jun Perez Primary Care Provider Mapus, STATIONARY FIREMAN Tondra K Attending Provider [phone] MD Tj Huber Attending Provider MD Rodney Victor Attending Provider MD Britney Yu Attending Provider Jose Yu Unavailable MD Jun Perez Primary Care Provider Mapus, STATIONARY FIREMAN Tondra K Attending Provider MD Jun Perez Primary Care Provider Mapus, STATIONARY FIREMAN Tondra K Attending Provider MD Jose Yu Attending Provider MD Jun Perez Primary Care Provider BRITNEY YU Attending Unavailable JUN PEREZ Primary Care Unavailable BRITNEY YU Attending Unavailable BRITNEY YU Referring Unavailable JUN PEREZ Primary Care Unavailable Jun Perez MD Primary Care Provider Jun Perez MD Primary Care Provider Jun Perez MD Attending Provider Jun Perez MD Primary Care Provider Jun Perez MD Attending Provider [phone] Jun Perez MD Primary Care Provider BONY GIBSON Attending Unavailable BONY GIBSON Attending Unavailable BONY GIBSON Attending Unavailable SB OSORIO Attending Unavailable BONY GIBSON Attending Unavailable Jun Perez MD Primary Care Provider Kusum Dailey MD Attending Provider Latisha JESSA Garrettdra Azar Attending Provider Ashkan Perez MD Attending Provider Jun Perez MD Attending Provider Mich Childs DO Attending Provider Humberto Valerio DO Attending Provider Jun Perez MD Primary Care Provider Jun Perez Primary Care Unavailable Jun Perez Attending Unavailable Jun Perez Admitting Unavailable Jun Perez Primary Care Unavailable Ashkan Perez Admitting Unavailable Ashkan Perez Attending Unavailable Allergies Allergy Classification Reported Allergen(s) Allergy Type Date of Onset Reaction(s) Facility (20 sources) Contrast media Propensity to adverse reactions Unknown Traackr Other (8 sources) Contrast media Allergy to substance (finding) Shortness of breath [facility] [address] DO Work Phone: (6 sources) Angiotensin Converting Enzyme (Elisa) Inhibitors; Translations: [ELISA Inhibitors] Allergy to drug (finding) [facility] [employer] [address] DO Work Phone: (1 source) Contrast media; Translations: [Contrast Dye] Propensity to adverse reactions to drug (disorder) [facility] (20 sources) Gadolinium-Cont aining Contrast Medi; Translations: [Gadolinium-Con taining Contrast Medi] Allergy to substance 1 Anaphylaxis [facility] (20 sources) Iodinated Contrast Media; Translations: [IODINATED CONTRAST MEDIA] Allergy to substance 1 Shortness of breath, Anaphylaxis [facility] (12 sources) semaglutide; Translations: [semaglutide] Propensity to adverse reactions 5 Unknown Reaction [facility] Comment on above: felt funny Medications Current Medications Medication Drug Class(es) Dates Sig (Normalized) Sig (Original) 0.25 MG, 0.5 MG Dose 3 ML semaglutide 0.68 MG/ML Pen Injector [Ozempic] (3 sources) Start: 09-17-2023 inject 0.5 mg by subcutaneous injection every week Ozempic (0.25 or 0.5 MG/DOSE) 2 MG/3ML 0.5mg Subcutaneous once weekly Sep, Active ascorbic acid 250 mg oral tablet (13 sources) Vitamin C take 1 tablet by [...] take 5 mg by mouth at bedtime Start: 10-21-2023 take 5 mg by mouth [...] Blood-Glucose Meter (Accu-Ch ek Guide Glucose Meter) mis (20 sources) Start: 04-18-2024 Blood-Glucose Meter (Accu-Chek Guide Glucose Meter) misc Active 0 .Route 1 April 18, 2024 8:37am As directed Use with Accu Chek Guide test strips to check blood glucose Start: 04-18-2024 Blood-Glucose Meter (Accu-Chek Guide Glucose Meter) misc Active 0 .Route 1 April 18, 2024 9:37am As directed Use with Accu Chek Guide test strips to check blood glucose Start: 04-18-2024 End: 04-18-2024 Blood-Glucose Meter (Accu-Ch ek Guide Glucose Meter) mis Discontinued 0 .Route April 17, 2024 11:00pm April 18, 2024 8:38am As directed Start: 04-18-2024 End: 04-18-2024 Blood-Glucose Meter (Accu-Ch ek Guide Glucose Meter) misc Discontinued 0 .Route April 18, 2024 12:00am April 18, 2024 9:38am As directed Blood-Glucose Sensor (Freestyle Carmelita 3 Plus Sensor) device (8 sources) Start: 03-30-2025 Blood-Glucose Sensor (Freestyle Carmelita 3 Plus Sensor) device Active 0 MISCELLANE .MEDSUPPLY 2 March 30, 2025 12:00am change every 15 days 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 cephalexin 500 mg oral capsule (2 sources) [...] take 1 capsule by mouth once daily take 1 capsule by mouth in the [...] sources) Sodium-Glucose Cotransporter 2 Inhibitor Start: 09-29-2024 End: 09-29-2024 take 1 tablet by mouth once daily Start: 01-11-2024 End: 09-29-2024 Empagliflozin (Jardiance) 25 mg tablet Discontinued 0 PO Daily January 11, 2024 12:40pm September 29, 2024 10:56am 12.5 mg (1/2 tab) orally daily; Start: [...] mg oral tablet (20 sources) Start: 10-21-2023 take 1 tablet by mouth every oth [...] mg oral tablet (20 sources) Sulfonylurea Start: 10-19-2024 take 1 tablet by tanvi th twice daily Start: 05-25-2024 End: 10-19-2024 Glipizide 5 mg tablet Discon tinued 0 .ROUTE .COMPLEX 180 September 29, 2024 10:56am October 19, 2024 11:06am TAKE 1 TABLET TWICE DAILY Start: 01-05-2024 [...] oral tablet (20 sources) Arteriolar Vasodilator Start: 12-06-2024 End: 03-16-2025 take 1 tablet by mouth every eight hours Start: 01-08-2024 End: 12-06-2024 Hydralazine 25 mg tablet Discontinued 37.5 MG PO Every 8 hours 405 90 September 08, 2024 12:52pm December 06, 2024 4:51pm Start: 01-08-2024 take 37.5 mg by mout h every eight hours Hydralazine Active 37.5 MG PO Every 8 hours January 08, 2024 2:39pm Start: 01-05-2024 End: 01-08-2024 take 1.5 tablets by mouth three times daily Hydralazine 25 mg tablet Discontinued MG PO January 05, 2024 1:00am [...] day Active lisinopril 2.5 mg oral tablet (20 sources) Angiotensin Converting Enzyme Inhibitor Start: 3 End: 3 lisinopril 2.5 MG tablet 04/17/2023 Active losartan potassium 50 mg oral tablet (20 sources) Angiotensin 2 Receptor Michelle Start: 4 End: 5 take 1 tablet by mouth once daily Start: 05-24-2024 End: 10-19-2024 Losartan 50 mg tablet Discon tinued 0 .ROUTE .COMPLEX 90 May 24, 2024 11:50am October 19, 2024 11:06am TAKE 1 TABLET ONE TIME DAILY (STOP [...] Aug, Active take 1 tablet by tanvi every twenty-four hours Cozaar 50 MG 1 tablet Orally Once a day for 90 days Stop Lisinopril Active magnesium oxide 250 mg oral tablet (8 sources) Start: 03-30-2025 take 1 tablet by mouth once daily Multivitamin preparation (3 sources) Multivitamin Act fabien saw palmetto (Serenoa repens) 1000 MG capsule (13 sources) saw palmetto (Se renoa repens) 1000 MG capsule 1 capsule. Active Saw Viola 1000 MG (18 sources) take 1000 mg by mouth twice daily Saw Viola 1000 MG as directed Orally BID Active Saw Viola 450 MG (6 sources) take 450 mg by mouth three times daily Saw Viola 450 MG as directed Orally three times a day Active Saw Viola (20 sources) Start: 10-21-2023 take 1 capsule by mouth three times daily at mealtime Start: 10-21-2023 take 1 capsule by [facility] three times daily at mealtime Saw Viola 450 mg Capsule Active 450 MG PO Three times daily October 21, 2023 1:00am give with food (meal/snack) Complies with drug therapy Start: 10-21-2023 take 1 capsule by [facility] three times daily at mealtime Saw Viola 450 mg Capsule Active 450 MG PO Three times daily October 21, 2023 1:00am give with food (meal/snack) Start: 10-21-2023 take 1 capsule by mo [facility] three times daily at mealtime Saw Viola 450 mg Capsule Active 450 MG PO Three times daily October 21, 2023 12:00am give with food (meal/snack) Start: 10-21-2023 take 450 mg by mouth three times daily at mealtime Saw Viola Active 450 MG PO Three times daily October 21, 2023 1:00am give with food (meal/snack) Start: 10-21-2023 take 450 mg by mouth three times daily at mealtime Saw Viola Active 450 MG PO Three times daily [...] a day for 10 day(s) Feb, Active carvedilol 25 mg oral tablet (20 sources) alpha-Adrenergic Michelle, beta-Adrenergic Michelle Start: 01-05-2024 End: 02-20-2025 take 1 tablet by mouth twice daily at mealtime Carvedilol 25 mg tablet Discontinued 25 MG PO Twice daily January 11, 2024 12:43pm August 18, 2024 11:43am must administer with a meal/food Start: 10-21-2023 [...] 1 tablet by tanvi twice daily Carvedilol 12.5 MG Oral Tablet TAKE 1 TABLET TWICE DAILY. Quantity: 180 Refills: 3 Ordered: 08-Jun-2023 Britney Yu MD Start : 08-Jun-2023 Active take with 6.25mg bid carvedilol (Core g) 12.5 MG tablet every 8 (eight) hours. Active take 1 tablet by tanvi every eight hours Carvedilol 12.5 MG 1 tablet with food Orally THREE TIMES A DAY Active [facility] Carvedilol 12.5 MG 1 tablet with food Orally Twice a day Active gabapentin 100 mg oral capsule (20 sources) Anti-epileptic Agent Start: 10-21-2023 End: 07-04-2024 take 1 tablet by mouth three times daily Gabapentin 100 mg Tablet Discontinued 100 MG PO Three times daily October 21, 2023 1:00am July 04, 2024 11:04am take [facility] by [facility] hours gabapentin (Neurontin) 100 MG capsule 1 capsule every 8 (eight) hours. Active take 1 capsule by mouth once sebastian ly Gabapentin 100 MG 1 capsule Orally 3x daily for 90 days Active take 1 capsule by [facility] three times daily gabapentin (Neurontin) 100 mg capsule Ta ke 1 capsule (100 mg) by mouth 3 times a day. 0 Active linaclotide 0.072 mg oral capsule (15 sources) Guanylate Cyclase-C Agonist Start: 04-13-2024 End: 07-04-2024 take 1 capsule by mouth once daily Linaclotide (Linzess) 72 mcg capsule Discontinued 72 MCG PO Daily April 13, 2024 12:00am July 04, 2024 11:04am meclizine hydrochloride 25 mg oral tablet (15 sources) Antiemetic Start: 04-27-2024 End: 07-04-2024 take 1 tablet by mouth twice daily as needed Meclizine 25 mg tablet Discontinued 25 MG PO Twice daily as needed for motion sickness April 27, 2024 12:00am July 04, 2024 11:04am meloxicam 7.5 mg oral tablet (20 sources) Nonsteroidal Anti-inflammatory Drug Start: 04-13-2024 End: 04-27-2024 take 1 tablet by mouth once daily Meloxicam 7.5 mg tablet Discontinued 7.5 MG PO Daily April 13, 2024 12:00am April 27, 2024 12:04pm methylPREDNISolone 125 mg injection (20 sources) Corticosteroid Start: 01-01-2024 End: 01-01-2024 Methylprednisolone Sodium Succ 125 mg recon soln Discontinued 60 MG IM Every morning January 01, 2024 1:00am January 01, 2024 10:14am Start: 01-01-2024 End: 01-01-2024 inject 60 mg by intramuscular injection once daily in the morning Methylprednisolone Sodium Succ Discontinued 60 MG IM Every morning January 01, 2024 1:00am January 01, 2024 10:14am Start: 02-17-2023 methylPREDNISo lone 4 MG as directed Orally for 6 days Feb, Active nystatin [id number] unt/ml oral suspension (8 sources) Polyene Antifungal Start: 08-08-2024 End: 10-19-2024 take 1 mL by mouth three times daily Nystatin 100,000 unit/mL suspension Discontinued 5 ML PO Three times daily August 08, 2024 12:00am October 19, 2024 11:05am swish and spit Start: 08-08-2024 take 1 mL by mouth t hree times daily Nystatin Active 5 ML PO Three times daily 60 August 08, 2024 12:00am swish and spit Nystatin 100,000 unit/mL suspension (5 sources) Start: 08-08-2024 End: 10-19-2024 take 1 mL by mouth three times daily Nystatin 100,000 unit/mL suspension Discontinued 5 ML PO Three times daily 60 August 08, 2024 12:00am October 19, 2024 11:05am swish and spit Start: 08-08-2024 End: 10-19-2024 take 1 mL by mouth three times daily Nystatin 100,000 unit/mL suspension Discontinued 5 ML PO Three times daily 60 August 07, 2024 11:00pm October 19, 2024 10:05am swish and spit Start: 08-08-2024 take 1 mL by mouth t hree times daily Nystatin 100,000 unit/mL suspension Active 5 ML PO Three times daily 60 August 07, 2024 11:00pm swish and spit predniSONE 20 mg oral tablet (7 sources) Start: 10-31-2023 take 1 tablet by mouth every twelve hours prednisone 20 MG 1 tablet Orally BID for 5 16 Oct, 2023 Not-Taking/PRN Start: 09-08-2022 take 1 tablet by [...] Hypertensive heart and CKD, ESRD on dialysis ([facility]) , CHF (congestive heart failure), NYHA class II, acute on chronic, combined ([facility]) , Primary hypertension Take 1 tablet by [...] tablet Orally Twice a day Not-Taking/PRN Saw Viola 1000 MG Oral Capsule (8 sources) Saw Viola 100 0 MG Oral Capsule TAKE DIRECTED. Quantity: 0 Refills: 0 Ordered: 26-Dec-2022 DO Active triamcinolone acetonide 40 mg/ml injectable suspension (20 sources) Corticosteroid Start: 04-30-2022 Kenalog-40 Apr, 20 mg Start: 04-30-2022 Kenalog-40 Apr, 40 mg Start: 07-29-2021 Kenalog -40 mg Jul, 40 mg Problems Active Problems Problem Classification Problem Date Documented Date Episodic/Chronic Administrative/social admission (20 sources) Dietary counseling and surveillance; Translations: [Patient [...] unspecified] 01-04-2024 Episodic Deficiency and other anemia (14 sources) Pernicious anemia; Translations: [Vitamin B12 deficiency anemia due to intrinsic factor deficiency] 05-31-2025 Episodic Diabetes mellitus with complications (20 sources) Diabetic peripheral neuropathy; Translations: [Type 2 diabetes mellitus with diabetic polyneuropathy] Onset: Chronic Diabetes mellitus without complication (20 sources) Type 2 diabetes mellitus without complication; Translations: [Diabetes mellitus without mention of complication, type II or unspecified type, not stated as uncontrolled] Onset: 3 09-25-2023 Chronic Disorders of lipid metabolism (20 sources) Hyperlipidemia; Translations: [Other and unspecified hyperlipidemia] Onset: Chronic Essential hypertension (20 sources) Essential hypertension; Translations: [Unspecified essential hypertension] Onset: 5 Chronic Genitourinary congenital anomalies (20 sources) Renal agenesis and dysgenesis; 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, unilateral] Onset: Chronic Genitourinary symptoms and ill-defined conditions (20 sources) Proteinuria, unspecified; Translations: [Proteinuria] Onset: Episodic Hypertension with complications and secondary hypertension (20 sources) Chronic kidney disease due to hypertension; Translations: [Hypertensive chronic kidney disease with stage 1 through stage 4 chronic kidney disease, or unspecified chronic kidney disease] Onset: Chronic Immunizations and screening for infectious disease (20 sources) Contact with and (suspected) exposure to other viral communicable diseases; Translations: [Contact with and (suspected) exposure to other viral communicable diseases] Episodic Joint disorders and dislocations; trauma-related (13 sources) Derangement of right knee; Translations: [Unspecified internal derangement of right knee] Onset: 3 04-29-2023 Chronic Malaise and fatigue (11 sources) Fatigue; Translations: [Other fatigue] 02-14-2025 Episodic Mycoses (19 sources) Candidiasis of mouth; Translations: [Candidal stomatitis] 08-09-2024 Episodic Nephritis; nephrosis; renal sclerosis (13 sources) Atrophy of right kidney; Translations: [Atrophy of kidney (terminal)] Onset: 5 04-30-2023 Chronic Osteoarthritis (20 sources) Osteoarthritis of right knee joint; Translations: [Unilateral primary osteoarthritis, right knee] Onset: 2 Resolved: 2 Chronic Other aftercare (5 sources) Treatment changed; Translations: [Long-term (current) use of other medications] Onset: 3 09-28-2023 Episodic Other aftercare (11 sources) Long-term current use of insulin; Translations: [care home (current) use of insulin] Episodic Other bone disease and musculoskeletal deformities (1 source) Disorder of bone, unspecified; Translations: [Disorder of bone, unspecified] Onset: 3 Episodic Other connective tissue disease (12 sources) Tendinopathy of peroneal tendon; Translations: [Other specified [...] Episodic Other diseases of kidney and ureters (14 sources) Secondary hyperparathyroidism; Translations: [Secondary hyperparathyroidism of renal origin] 07-04-2024 Chronic Other diseases of kidney and ureters (5 sources) Secondary hyperparathyroidism of renal origin; Translations: [Secondary hyperparathyroidism (of renal origin)] 07-04-2024 Chronic Other diseases of kidney and ureters (13 sources) Cyst of kidney, acquired; Translations: [Cystic kidney disease, unspecified] Episodic Other diseases of kidney and ureters (20 sources) Complex renal cyst; Translations: [Cyst of kidney, acquired] 01-04-2024 Episodic Other ear and sense organ disorders (7 sources) Impacted cerumen; Translations: [Impacted cerumen, bilateral] 05-09-2024 Episodic Other ear and sense organ disorders (1 source) Impacted cerumen, bilateral; Translations: [Impacted cerumen] 04-27-2024 Episodic Other ear and sense organ disorders (7 sources) Impacted cerumen of bilateral ears; Translations: [Impacted cerumen, bilateral] 05-09-2024 Episodic Other gastrointestinal disorders (15 sources) Irritable bowel syndrome characterized by constipation; [...] chronic pain Chronic Other non-traumatic joint disorders (17 sources) Pain in right knee; Translations: [Chronic pain of right knee] Onset: 2 Resolved: 2 Episodic Other non-traumatic joint disorders (19 sources) Hip pain; Translations: [Pain in left hip] 02-14-2025 Episodic Other non-traumatic joint disorders (2 sources) Pain in left hip; Translations: [Pain in joint, pelvic region and thigh] 02-14-2025 Episodic Other nutritional; endocrine; and metabolic disorders [...] nutritional; endocrine; and metabolic disorders (20 sources) Body mass index 30+ - obesity; Translations: [Body mass index (BMI) 36.0-36.9, adult] 03-24-2024 Chronic Other nutritional; endocrine; and metabolic disorders (2 sources) Morbid (severe) obesity due to excess calories; Translations: [Morbid (severe) obesity due to excess calories (CMS/HCC)] Onset: 3 Chronic Other nutritional; endocrine; and metabolic disorders (14 sources) Obesity caused by energy imbalance; Translations: [Class 2 obesity due to excess calories with body mass index (BMI) of 36.0 to 36.9 in adult, unspecified whether serious comorbidity present] 08-17-2024 Chronic Other nutritional; endocrine; and metabolic disorders (13 sources) Obese class I; Translations: [Obesity (BMI 30.0-34.9)] Onset: 5 04-30-2023 Chronic Other nutritional; endocrine; and metabolic disorders (2 sources) Body mass index (BMI) 35.0-35.9, adult; Translations: [Body Mass Index 35.0-35.9, adult] 09-29-2024 Chronic Other nutritional; endocrine; and metabolic disorders [...] tissue, unspecified Episodic Other upper respiratory disease (20 sources) Allergic rhinitis; Translations: [Allergic rhinitis, unspecified] [...] Onset: 3 09-25-2023 Chronic Residual codes; unclassified (17 sources) Obstructive sleep apnea syndrome; Translations: [Obstructive sleep apnea (adult) (pediatric)] 04-13-2024 Chronic Residual codes; unclassified (2 sources) Obstructive sleep apnea (adult) (pediatric); Translations: [Obstructive sleep apnea (adult)(pediatric)] 04-12-2024 Chronic Residual codes; unclassified (2 sources) Hypersomnia; Translations: [Hypersomnia, unspecified] 08-17-2024 Chronic Residual codes; unclassified (20 sources) Transient alteration of awareness; Translations: [Transient alteration of awareness] 04-10-2021 Episodic Skin and subcutaneous tissue infections (5 sources) Cellulitis of unspecified toe; Translations: [Abscess of toe of right foot] Episodic Spondylosis; intervertebral disc disorders; other back problems (20 sources) Chronic low back pain; Translations: [Lumbago with sciatica, left side] Episodic Transient cerebral ischemia (13 sources) Transient global amnesia; 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] Onset: 4 08-14-2024 Chronic Unclassified (1 source) Unknown / UNK(Unknown) Onset: 3 Unclassified (1 source) CHRN KIDNEY DISEASE STG 3 UNSP; Translations: [CHRN KIDNEY DISEASE STG 3 UNSP] Onset: 3 Unclassified (3 sources) M25.552 - Pain in left hip,G89.29 - Other chronic pain Past or Other Problems Problem Classification Problem Date Documented Da te Episodic/Chronic Chronic kidney disease (13 sources) Chronic kidney disease; Translations: [Chronic kidney disease, stage III (moderate)] Conditions associated with dizziness or vertigo (17 sources) Benign paroxysmal positional vertigo; Translations: [Benign paroxysmal vertigo, unspecified ear] Onset: 11-29-2024 05-09-2024 Episodic Inflammation; infection of eye (except that caused by tuberculosis or sexually transmitteddisease) (1 source) Hordeolum externum right lower eyelid Onset: 05-25-2022 Resolved: 05-25-2022 Episodic Other aftercare (2 sources) Other retail sales consultant (current) drug therapy; Translations: [Other retail sales consultant (current) drug therapy] Onset: 09-25-2023 Episodic Other connective tissue disease (1 source) Pain in left hand Onset: 04-30-2022 Resolved: 04-30-2022 Episodic Residual codes; unclassified (13 sources) Lack of awareness; Translations: [Unspecified symptoms and signs involving cognitive functions and awareness] Onset: 08-14-2024 08-14-2024 Episodic Unclassified (8 sources) Never smoked tobacco; Translations: [Never a smoker] Unclassified (1 source) Chronic cough R05.3 Unclassified (2 sources) Onset: 09-28-2023 Resolved: 10-15-2023 09-28-2023 Viral infection (1 source) COVID-19 Results Test Name Value Interpretation Reference Range Facility HbA1c HPLC (Bld) [Mass fract ion]on 03-30-2025 HbA1c (Bld) [Mass fraction] 6.2 % [facility] No Panel Informationon 03-30 Bedside Glucose 147 [facility] Basophils Auto (Bld) [#/Vol] on 03-28-2025 Basophils (Bld) [#/Vol] Automated basoph il count 0.0-0.1 [facility] Basophils (Bld) [#/Vol] 0.0 10 3/uL 0.0-0.1 [facility] Basophils/100 WBC Auto (Bld) on 03-28-2025 Basophils/100 WBC (Bld) Automated basophil % 0. 2-2.0 [facility] Basophils/100 WBC (Bld) 0.6 % 0.2-2.0 [facility] Eosinophils/100 WBC Auto (Bl d)on 03-28-2025 Eosinophils/100 WBC (Bld) Automated eosinophil % 0.9-7.0 [facility] Eosinophils/100 WBC (Bld) 2.2 % 0.9-7.0 [facility] Erythrocyte distribution wid th Auto (RBC) [Ratio]on 03-28-2025 Erythrocyte distribution width (RBC) [Ratio] Erythrocyte distribution width [Ratio] by Automated count 11.0-15.0 [facility] Erythrocyte distribution width (RBC) [Ratio] 14.8 % 11.0-15.0 [facility] Hematocrit Auto (Bld) [Volum e fraction]on 03-28-2025 Hematocrit (Bld) [Volume fraction] Hematocrit [Volume Fraction] of Blood by Automated count 42.0-54.0 [facility] Hematocrit (Bld) [Volume fraction] 45.3 % 42.0-54.0 [facility] Hemoglobin [Mass/volume] in Bloodon 03-28-2025 Hemoglobin (Bld) [Mass/Vol] Hemoglobin [Mass/volume] in Blood 14.0-18.0 [facility] Hemoglobin (Bld) [Mass/Vol] 14.5 g/dL 14.0-18.0 [facility] Laboratory - Hematology and Cell countson 03-28-2025 Immature granulocytes/100 WBC (Bld) 0.4 % 0.0-0.5 [facility] Leukocytes [#/volume] correc ritu for nucleated erythrocytes in Blood by Automated counon 03-28-2025 WBC corrected for nucl RBC Auto (Bld) [#/Vol] Leukocytes [#/volume] corrected for nucleated erythrocytes in Blood by Automated coun 4.0-11.0 [facility] WBC corrected for nucl RBC Auto (Bld) [#/Vol] 5.1 10 3/uL 4.0-11.0 [facility] Lymphocytes Auto (Bld) [#/Vo l]on 03-28-2025 Lymphocytes (Bld) [#/Vol] Lymphocytes [#/volume] in Blood by Automated count Low 1.2-3.8 [facility] Lymphocytes (Bld) [#/Vol] 0.8 10 3/uL Low 1.2-3.8 [facility] Lymphocytes/100 WBC Auto (Bl d)on 03-28-2025 Lymphocytes/100 WBC (Bld) Lymphocytes/100 leukocytes in Blood by Automated count Low 20.5-60.0 [facility] Lymphocytes/100 WBC (Bld) 16.2 % Low 20.5-60.0 [facility] MCH Auto (RBC) [Entitic mass ]on 03-28-2025 MCH (RBC) [Entitic mass] MCH [Entitic ma ss] by Automated count 25.9-34.0 [facility] MCH (RBC) [Entitic mass] 27.2 pg 25.9-34.0 [facility] MCHC Auto (RBC) [Mass/Vol]on 03-28-2025 MCHC (RBC) [Mass/Vol] MCHC [Mass/volume] by Automated count 29.9-35.2 [facility] MCHC (RBC) [Mass/Vol] 32.0 g/dL 29.9-35.2 [facility] MCV Auto (RBC) [Entitic vol] on 03-28-2025 MCV (RBC) [Entitic vol] MCV [Entitic vol ume] by Automated count 80.0-94.0 [facility] MCV (RBC) [Entitic vol] 85.0 fL 80.0-94.0 [facility] Monocytes Auto (Bld) [#/Vol] on 03-28-2025 Monocytes (Bld) [#/Vol] Automated blood monocyte count 0.3-0.8 [facility] Monocytes (Bld) [#/Vol] 0.4 10 3/uL 0.3-0.8 [facility] Monocytes/100 WBC Auto (Bld) on 03-28-2025 Monocytes/100 WBC (Bld) Automated monocyte % 1. 7-12.0 [facility] Monocytes/100 WBC (Bld) 7.1 % 1.7-12.0 [facility] Neutrophils Auto (Bld) [#/Vo l]on 03-28-2025 Neutrophils (Bld) [#/Vol] Neutrophils [#/volume] in Blood by Automated count 1.4-6.5 [facility] Neutrophils (Bld) [#/Vol] 3.7 10 3/uL 1.4-6.5 [facility] Neutrophils/100 WBC Auto (Bl d)on 03-28-2025 Neutrophils/100 WBC (Bld) Automated neutrophil % 43.0-75.0 [facility] Neutrophils/100 WBC (Bld) 73.5 % 43.0-75.0 [facility] No Panel Informationon 03-28 Eosinophils # (Auto) 0.1 10 3/uL 0.0-0.7 [facility] Immature Granulocyte # (Auto) 0.02 10 3/uL 0.00-0.03 [facility] Platelet mean volume Auto (B ld) [Entitic vol]on 03-28-2025 Platelet mean volume (Bld) [Entitic vol] Platelet mean volume [Entitic volume] in Blood by Automated count 9.5-13.5 [facility] Platelet mean volume (Bld) [Entitic vol] 10.8 fL 9.5-13.5 [facility] Platelets Auto (Bld) [#/Vol] on 03-28-2025 Platelets (Bld) [#/Vol] Platelets [#/vol ume] in Blood by Automated count Low 150-450 [facility] Platelets (Bld) [#/Vol] 142 10 3/uL Low 150-450 [facility] RBC Auto (Bld) [#/Vol]on RBC (Bld) [#/Vol] Erythrocytes [#/volume] in Blood by Automated count 4.70-6.10 [facility] RBC (Bld) [#/Vol] 5.33 10 6/uL 4.70-6.10 [facility] Reticulocytes/100 RBC Auto ( Bld)on 03-28-2025 Reticulocytes/100 RBC (Bld) Reticulocyte % auto 0.60-3.10 [facility] Reticulocytes/100 RBC (Bld) 1.06 % 0.60-3.10 [facility] Activated partial thrombopla stin time (aPTT) in platelet poor plasma by coagulation aon 03-27-2025 aPTT Coag (PPP) [Time] 32.7 s 0.0-43.5 [facility] Albumin [Mass/volume] in Ser um or Plasmaon 03-27-2025 Albumin [Mass/Vol] 3.4 g/dL 2.9-4.4 [facility] Estimated glomerular filtrat ion rate (GFR) non- Americanon 03-27-2025 GFR/1.73 sq M.predicted among non-blacks MDRD (S/P/Bld) [Vol rate/Area] Estimated glomerular filtration rate (GFR) non- Low >=60 mL/min/1.73 m 2 [facility] GFR/1.73 sq M.predicted among non-blacks MDRD (S/P/Bld) [Vol rate/Area] 39 mL/min/{1.73_m2} Low >=60 mL/min/1.73 m 2 [facility] Globulin Calc (S) [Mass/Vol] on 03-27-2025 Globulin (S) [Mass/Vol] Serum globulin measurement by calculation (mass/volume) [facility] Globulin (S) [Mass/Vol] 3.2 g/dL [facility] IgA [Mass/volume] in Serum o r Plasmaon 03-27-2025 IgA [Mass/Vol] 161 mg/dL 61-437 [facility] IgG [Mass/volume] in Serum o r Plasmaon 03-27-2025 IgG [Mass/Vol] 843 mg/dL 603-1613 [facility] IgM [Mass/volume] in Serum o r Plasmaon 03-27-2025 IgM [Mass/Vol] 62 mg/dL 15-143 [facility] Immunoglobulin light chains. kappa.free [Mass/volume] in Serumon 03-27-2025 Immunoglobulin light chains.kappa.free (S) [Mass/Vol] 37.2 mg/L Abnormal 3.3-19.4 [facility] Immunoglobulin light chains. kappa.free/Immunoglobulin light chains.lambda.free [Romeo 03-27-2025 Immunoglobulin light chains.kappa.free/Immuno globulin light chains.lambda.free (S) [Mass ratio] 1.88 Abnormal 0.26-1.65 [facility] Comment on above: Performed at: [address] [id number] Director: Robin Mead PhD, Phone: [phone] Immunoglobulin light chains. lambda.free [Mass/volume] in Serum or Plasmaon 03-27-2025 Immunoglobulin light chains.lambda.free [Mass/Vol] 19.8 mg/L 5.7-26.3 [facility] Laboratory - Chemistry and C hemistry - challengeon 03-27-2025 ALP [Catalytic activity/Vol] 94 U/L 46-116 [facility] ALT [Catalytic activity/Vol] 15 U/L Low 16-63 [facility] AST [Catalytic activity/Vol] 13 U/L Low 15-37 [facility] Bilirubin [Mass/Vol] 0.8 mg/dL 0.2-1.0 [facility] Calcium [Mass/Vol] 9.2 mg/dL 8.5-10.1 [facility] Chloride [Moles/Vol] 106 mmol/L 98-107 [facility] CO2 [Moles/Vol] 26.8 mmol/L 21.0-32.0 [facility] Cobalamin (Vitamin B12) [Mass/Vol] 279 pg/mL [id number] [facility] Comment on above: Performed at: [facility] - [facility] [address] [id number] Director: Robin Mead PhD, Phone: [phone] Creatinine [Mass/Vol] 1.71 mg/dL High 0.70-1.30 [facility] GFR/1.73 sq M.predicted MDRD (S/P/Bld) [Vol rate/Area] 48 mL/min/{1.73_m2} Low >=60 mL/min/1.73 m 2 [facility] Glucose [Mass/Vol] 137 mg/dL High 74-106 [facility] LDH [Catalytic activity/Vol] 153 U/L 85-227 [facility] Potassium [Moles/Vol] 4.0 mmol/L 3.5-5.1 [facility] Protein [Mass/Vol] 6.6 g/dL 6.4-8.2 [facility] Sodium [Moles/Vol] 141 mmol/L 136-145 [facility] Urea nitrogen [Mass/Vol] 27.0 mg/dL High 7.0-18.0 [facility] Urea nitrogen/Creatinine [Mass ratio] 15.8 mg/mg [facility] Lupus anticoagulant [Interpr etation] in Platelet poor plasmaon 03-27-2025 Lupus anticoagulant (PPP) [Interp] Comment: . [facility] Comment on above: No lupus anticoagula nt was detected.Performed at: [facility] - [facility] [address] [id number] Director: Beck Crowe MD, Phone: [phone] No Panel Informationon 03-27 Dilute Chavez Viper Venom Screen 45.5 sec 0.0-47.0 [facility] Protein Electrophoresis M-Tavo Not Observed g/dL Not Observed [facility] Protein Electrophoresis Note Comment . [facility] Comment on above: Protein electrophore sis scan will follow via computer,mail, or load dispatcher local delivery. Protein [Mass/volume] in Ser um or Plasmaon 03-27-2025 Protein [Mass/Vol] 6.2 g/dL 6.0-8.5 [facility] Serum globulin measurement ( mass/volume)on 03-27-2025 Globulin (S) [Mass/Vol] 2.8 g/dL 2.2-3.9 [facility] Serum or plasma albumin/glob ulin mass ratioon 03-27-2025 Albumin/Globulin [Mass ratio] Serum or plasma albumin/globulin mass ratio [facility] Albumin/Globulin [Mass ratio] 1.1 {ratio} [facility] Albumin/Globulin [Mass ratio] 1.3 {ratio} 0.7-1.7 [facility] Serum or plasma alpha 1 glob ulin measurement by electrophoresis (mass/volume)on 03-27-2025 Alpha 1 globulin Elph [Mass/Vol] 0.2 g/dL 0.0-0.4 [facility] Serum or plasma alpha 2 glob ulin measurement by electrophoresis (mass/volume)on 03-27-2025 Alpha 2 globulin Elph [Mass/Vol] 0.8 g/dL 0.4-1.0 [facility] Serum or plasma anion gap de terminationon 03-27-2025 Anion gap [Moles/Vol] Serum or plasma anion gap determination [facility] Anion gap [Moles/Vol] 12.2 mmol/L [facility] Serum or plasma beta globuli n measurement by electrophoresis (mass/volume)on 03-27-2025 Beta globulin Elph [Mass/Vol] 1.0 g/dL 0.7-1.3 [facility] Serum or plasma gamma globul in measurement by electrophoresis (mass/volume)on 03-27-2025 Gamma globulin Elph [Mass/Vol] 0.8 g/dL 0.4-1.8 [facility] Serum or plasma immunoelectr ophoresis interpretationon 03-27-2025 Interpretation IEP [Interp] Comment . [facility] Comment on above: No monoclonality det ected. Basophils Auto (Bld) [#/Vol] on 02-14-2025 Basophils (Bld) [#/Vol] Automated basoph il count 0.0-0.1 [facility] Basophils/100 WBC Auto (Bld) on 02-14-2025 Basophils/100 WBC (Bld) Automated basophil % 0. 2-2.0 [facility] Eosinophils/100 WBC Auto (Bl d)on 02-14-2025 Eosinophils/100 WBC (Bld) Automated eosinophil % 0.9-7.0 [facility] Erythrocyte distribution wid th Auto (RBC) [Ratio]on 02-14-2025 Erythrocyte distribution width (RBC) [Ratio] Erythrocyte distribution width [Ratio] by Automated count 11.0-15.0 [facility] Estimated glomerular filtrat ion rate (GFR) non- Americanon 02-14-2025 GFR/1.73 sq M.predicted among non-blacks MDRD (S/P/Bld) [Vol rate/Area] Estimated glomerular filtration rate (GFR) non- Low >=60 mL/min/1.73 m 2 [facility] Glucose mean value [Mass/vol ume] in Blood Estimated from glycated hemoglobinon 02-14-2025 Average glucose Estimated from glycated hemoglobin (Bld) [Mass/Vol] Glucose mean value [Mass/volume] in Blood Estimated from glycated hemoglobin [facility] Hematocrit Auto (Bld) [Volum e fraction]on 02-14-2025 Hematocrit (Bld) [Volume fraction] Hematocrit [Volume Fraction] of Blood by Automated count 42.0-54.0 [facility] Hemoglobin A1c percentageon 02-14-2025 HbA1c (Bld) [Mass fraction] Hemoglobin A1c percentage High 4.5-6.2 [facility] Comment on above: ADA RECOMMENDED LIMI T 4.0 - 6.0ADA THERAPEUTIC TARGET < 7.0ACTION SUGGESTED> 7.0 Hemoglobin [Mass/volume] in Bloodon 02-14-2025 Hemoglobin (Bld) [Mass/Vol] Hemoglobin [Mass/volume] in Blood 14.0-18.0 [facility] Laboratory - Chemistry and C hemistry - challengeon 02-14-2025 Calcium [Mass/Vol] 9.1 mg/dL 8.5-10.1 [facility] Chloride [Moles/Vol] 107 mmol/L 98-107 [facility] CO2 [Moles/Vol] 26.8 mmol/L 21.0-32.0 [facility] Creatinine [Mass/Vol] 1.70 mg/dL High 0.70-1.30 [facility] GFR/1.73 sq M.predicted MDRD (S/P/Bld) [Vol rate/Area] 48 mL/min/{1.73_m2} Low >=60 mL/min/1.73 m 2 [facility] Glucose [Mass/Vol] 118 mg/dL High 74-106 [facility] Magnesium [Mass/Vol] 2.3 mg/dL 1.8-2.4 [facility] Potassium [Moles/Vol] 4.5 mmol/L 3.5-5.1 [facility] Sodium [Moles/Vol] 145 mmol/L 136-145 [facility] TSH Qn 1.009 m[IU]/L 0.358-3.740 [facility] Urea nitrogen [Mass/Vol] 28.0 mg/dL High 7.0-18.0 [facility] Urea nitrogen/Creatinine [Mass ratio] 16.5 mg/mg [facility] Laboratory - Hematology and Cell countson 02-14-2025 Immature granulocytes/100 WBC (Bld) 0.2 % 0.0-0.5 [facility] Leukocytes [#/volume] correc ritu for nucleated erythrocytes in Blood by Automated counon 02-14-2025 WBC corrected for nucl RBC Auto (Bld) [#/Vol] Leukocytes [#/volume] corrected for nucleated erythrocytes in Blood by Automated coun 4.0-11.0 [facility] Lymphocytes Auto (Bld) [#/Vo l]on 02-14-2025 Lymphocytes (Bld) [#/Vol] Lymphocytes [#/volume] in Blood by Automated count Low 1.2-3.8 [facility] Lymphocytes/100 WBC Auto (Bl d)on 02-14-2025 Lymphocytes/100 WBC (Bld) Lymphocytes/100 leukocytes in Blood by Automated count Low 20.5-60.0 [facility] MCH Auto (RBC) [Entitic mass ]on 02-14-2025 MCH (RBC) [Entitic mass] MCH [Entitic ma ss] by Automated count 25.9-34.0 [facility] MCHC Auto (RBC) [Mass/Vol]on 02-14-2025 MCHC (RBC) [Mass/Vol] MCHC [Mass/volume] by Automated count 29.9-35.2 [facility] MCV Auto (RBC) [Entitic vol] on 02-14-2025 MCV (RBC) [Entitic vol] MCV [Entitic vol ume] by Automated count 80.0-94.0 [facility] Monocytes Auto (Bld) [#/Vol] on 02-14-2025 Monocytes (Bld) [#/Vol] Automated blood monocyte count 0.3-0.8 [facility] Monocytes/100 WBC Auto (Bld) on 02-14-2025 Monocytes/100 WBC (Bld) Automated monocyte % 1. 7-12.0 [facility] Neutrophils Auto (Bld) [#/Vo l]on 02-14-2025 Neutrophils (Bld) [#/Vol] Neutrophils [#/volume] in Blood by Automated count 1.4-6.5 [facility] Neutrophils/100 WBC Auto (Bl d)on 02-14-2025 Neutrophils/100 WBC (Bld) Automated neutrophil % 43.0-75.0 [facility] No Panel Informationon 02-14 Eosinophils # (Auto) 0.1 10 3/uL 0.0-0.7 [facility] Immature Granulocyte # (Auto) 0.01 10 3/uL 0.00-0.03 [facility] Platelet mean volume Auto (B ld) [Entitic vol]on 02-14-2025 Platelet mean volume (Bld) [Entitic vol] Platelet mean volume [Entitic volume] in Blood by Automated count 9.5-13.5 [facility] Platelets Auto (Bld) [#/Vol] on 02-14-2025 Platelets (Bld) [#/Vol] Platelets [#/vol ume] in Blood by Automated count Low 150-450 [facility] RBC Auto (Bld) [#/Vol]on RBC (Bld) [#/Vol] Erythrocytes [#/volume] in Blood by Automated count 4.70-6.10 [facility] Serum or plasma anion gap de terminationon 02-14-2025 Anion gap [Moles/Vol] Serum or plasma anion gap determination [facility] Basophils Auto (Bld) [#/Vol] on 12-26-2024 Basophils (Bld) [#/Vol] Automated basoph il count 0.0-0.1 [facility] Basophils/100 WBC Auto (Bld) on 12-26-2024 Basophils/100 WBC (Bld) Automated basophil % 0. 2-2.0 [facility] Eosinophils/100 WBC Auto (Bl d)on 12-26-2024 Eosinophils/100 WBC (Bld) Automated eosinophil % 0.9-7.0 [facility] Erythrocyte distribution wid th Auto (RBC) [Ratio]on 12-26-2024 Erythrocyte distribution width (RBC) [Ratio] Erythrocyte distribution width [Ratio] by Automated count 11.0-15.0 [facility] Estimated glomerular filtrat ion rate (GFR) non- Americanon 12-26-2024 GFR/1.73 sq M.predicted among non-blacks MDRD (S/P/Bld) [Vol rate/Area] Estimated glomerular filtration rate (GFR) non- Low >=60 mL/min/1.73 m 2 [facility] Hematocrit Auto (Bld) [Volum e fraction]on 12-26-2024 Hematocrit (Bld) [Volume fraction] Hematocrit [Volume Fraction] of Blood by Automated count 42.0-54.0 [facility] Hemoglobin [Mass/volume] in Bloodon 12-26-2024 Hemoglobin (Bld) [Mass/Vol] Hemoglobin [Mass/volume] in Blood 14.0-18.0 [facility] Laboratory - Chemistry and C hemistry - challengeon 12-26-2024 Albumin [Mass/Vol] 3.7 g/dL 3.4-5.0 [facility] Calcium [Mass/Vol] 9.0 mg/dL 8.5-10.1 [facility] Chloride [Moles/Vol] 105 mmol/L 98-107 [facility] CO2 [Moles/Vol] 28.2 mmol/L 21.0-32.0 [facility] Creatinine [Mass/Vol] 1.66 mg/dL High 0.70-1.30 [facility] GFR/1.73 sq M.predicted MDRD (S/P/Bld) [Vol rate/Area] 49 mL/min/{1.73_m2} Low >=60 mL/min/1.73 m 2 [facility] Glucose [Mass/Vol] 113 mg/dL High 74-106 [facility] Magnesium [Mass/Vol] 2.4 mg/dL 1.8-2.4 [facility] Potassium [Moles/Vol] 4.5 mmol/L 3.5-5.1 [facility] Sodium [Moles/Vol] 142 mmol/L 136-145 [facility] Urate [Mass/Vol] 6.2 mg/dL 3.5-7.2 [facility] Urea nitrogen [Mass/Vol] 28.0 mg/dL High 7.0-18.0 [facility] Urea nitrogen/Creatinine [Mass ratio] 16.9 mg/mg [facility] Bilirubin Ql (U) Negative NEGATIVE [facility] Glucose (U) [Mass/Vol] mg/dL Abnormal NEGATIVE [facility] Ketones Ql (U) Negative NEGATIVE [facility] pH (U) 6.0 [pH] 5.0-9.0 [facility] Specific gravity (U) [Rel density] 1.020 1.005-1.025 [facility] Urobilinogen Qn (U) 0.2 {Dolores'U}/dL 0.2-1.0 [facility] Laboratory - Hematology and Cell countson 12-26-2024 Immature granulocytes/100 WBC (Bld) 0.4 % 0.0-0.5 [facility] Laboratory - Specimen inform ationon 12-26-2024 Appearance (U) CLEAR CLEAR [facility] Color (U) YELLOW YELLOW [facility] Laboratory - Urinalysison Leukocyte esterase Test strip Ql (U) Negative NEGATIVE [facility] Mucus Ql (Urine sed) NONE SEEN NONE SEEN [facility] Nitrite Ql (U) Negative NEGATIVE [facility] Protein (U) [Mass/Vol] 59.0 mg/dL High <=11.9 [facility] Protein Ql (U) 30 mg/dL Abnormal NEG/TRACE [facility] Leukocytes [#/volume] correc ritu for nucleated erythrocytes in Blood by Automated counon 12-26-2024 WBC corrected for nucl RBC Auto (Bld) [#/Vol] Leukocytes [#/volume] corrected for nucleated erythrocytes in Blood by Automated coun 4.0-11.0 [facility] Lymphocytes Auto (Bld) [#/Vo l]on 12-26-2024 Lymphocytes (Bld) [#/Vol] Lymphocytes [#/volume] in Blood by Automated count Low 1.2-3.8 [facility] Lymphocytes/100 WBC Auto (Bl d)on 12-26-2024 Lymphocytes/100 WBC (Bld) Lymphocytes/100 leukocytes in Blood by Automated count Low 20.5-60.0 [facility] MCH Auto (RBC) [Entitic mass ]on 12-26-2024 MCH (RBC) [Entitic mass] MCH [Entitic ma ss] by Automated count 25.9-34.0 [facility] MCHC Auto (RBC) [Mass/Vol]on 12-26-2024 MCHC (RBC) [Mass/Vol] MCHC [Mass/volume] by Automated count 29.9-35.2 [facility] MCV Auto (RBC) [Entitic vol] on 12-26-2024 MCV (RBC) [Entitic vol] MCV [Entitic vol ume] by Automated count 80.0-94.0 [facility] Monocytes Auto (Bld) [#/Vol] on 12-26-2024 Monocytes (Bld) [#/Vol] Automated blood monocyte count 0.3-0.8 [facility] Monocytes/100 WBC Auto (Bld) on 12-26-2024 Monocytes/100 WBC (Bld) Automated monocyte % 1. 7-12.0 [facility] Neutrophils Auto (Bld) [#/Vo l]on 12-26-2024 Neutrophils (Bld) [#/Vol] Neutrophils [#/volume] in Blood by Automated count 1.4-6.5 [facility] Neutrophils/100 WBC Auto (Bl d)on 12-26-2024 Neutrophils/100 WBC (Bld) Automated neutrophil % 43.0-75.0 [facility] No Panel Informationon 12-26 25-Hydroxy Vitamin D Total 60.0 ng/mL [facility] Comment on above: <20 ng/mL Vit D defi cient20-<30 ng/mL Vit D [id number] ng/mL Vit D sufficient>100 ng/mL Potential Toxicity Eosinophils # (Auto) 0.1 10 3/uL 0.0-0.7 [facility] Immature Granulocyte # (Auto) 0.02 10 3/uL 0.00-0.03 [facility] Parathyroid Hormone (Intact) 54 pg/mL 15-65 [facility] Comment on above: Performed at: - [facility] [address] [id number] Director: Robin Mead PhD, Phone: [phone] Phosphorus Level 3.9 mg/dL 2.6-4.7 [facility] Urine Bacteria NONE SEEN #/HPF NONE SEEN [facility] Urine Occult Blood Negative NEGATIVE [facility] Urine Random Creatinine 96.03 mg/dL 20.0 0-300.0 0 [facility] Urine RBC NONE SEEN #/HPF 0-2 [facility] Urine Squamous Epithelial Cells RARE #/LPF NONE/RARE [facility] Urine WBC NONE SEEN #/HPF NONE SEEN [facility] Platelet mean volume Auto (B ld) [Entitic vol]on 12-26-2024 Platelet mean volume (Bld) [Entitic vol] Platelet mean volume [Entitic volume] in Blood by Automated count 9.5-13.5 [facility] Platelets Auto (Bld) [#/Vol] on 12-26-2024 Platelets (Bld) [#/Vol] Platelets [#/vol ume] in Blood by Automated count 150-450 [facility] RBC Auto (Bld) [#/Vol]on RBC (Bld) [#/Vol] Erythrocytes [#/volume] in Blood by Automated count 4.70-6.10 [facility] Serum or plasma anion gap de terminationon 12-26-2024 Anion gap [Moles/Vol] Serum or plasma anion gap determination [facility] Urine protein/creatinine rat ioon 12-26-2024 Protein/Creatinine (U) [Ratio] Urine protein/creatinine ratio [facility] Estimated glomerular filtrat ion rate (GFR) non- Americanon 10-18-2024 GFR/1.73 sq M.predicted among non-blacks MDRD (S/P/Bld) [Vol rate/Area] Estimated glomerular filtration rate (GFR) non- Low >=60 mL/min/1.73 m 2 [facility] Laboratory - Chemistry and C hemistry - challengeon 10-18-2024 Calcium [Mass/Vol] 8.9 mg/dL 8.5-10.1 [facility] Chloride [Moles/Vol] 107 mmol/L 98-107 [facility] CO2 [Moles/Vol] 28.8 mmol/L 21.0-32.0 [facility] Creatinine [Mass/Vol] 1.76 mg/dL High 0.70-1.30 [facility] GFR/1.73 sq M.predicted MDRD (S/P/Bld) [Vol rate/Area] 46 mL/min/{1.73_m2} Low >=60 mL/min/1.73 m 2 [facility] Glucose [Mass/Vol] 118 mg/dL High 74-106 [facility] Potassium [Moles/Vol] 4.2 mmol/L 3.5-5.1 [facility] Sodium [Moles/Vol] 143 mmol/L 136-145 [facility] Urea nitrogen [Mass/Vol] 27.0 mg/dL High 7.0-18.0 [facility] Urea nitrogen/Creatinine [Mass ratio] 15.3 mg/mg [facility] Serum or plasma anion gap de terminationon 10-18-2024 Anion gap [Moles/Vol] Serum or plasma anion gap determination [facility] HbA1c HPLC (Bld) [Mass fract ion]on 09-29-2024 HbA1c (Bld) [Mass fraction] Hemoglobin A1c/Hemoglobin.total in Blood by HPLC [facility] No Panel Informationon 09-29 Bedside Glucose 167 [facility] Cholesterol in LDL Calc [Mas s/Vol]on 09-28-2024 Cholesterol in LDL [Mass/Vol] Cholesterol in LDL [Mass/volume] in Serum or Plasma by calculation [facility] Comment on above: <100 mg/dl [id number] 0-129 mg/dl NEAR OR ABOVE [id number] mg/dl BORDERLINE [id number] mg/dl HIGH>190 mg/dl VERY HIGH Cholesterol in VLDL Calc [Ma ss/Vol]on 09-28-2024 Cholesterol in VLDL [Mass/Vol] Cholesterol in VLDL [Mass/volume] in Serum or Plasma by calculation [facility] Laboratory - Chemistry and C hemistry - challengeon 09-28-2024 Cholesterol [Mass/Vol] 103 mg/dL <=200 Fi [facility] Cholesterol in HDL [Mass/Vol] 35 mg/dL Low 40-60 [facility] Comment on above: > or =60 mg/dl - LOW CARDIOVASCULAR RISK<40 mg/dl - HIGH CARDIOVASCULAR RISK Triglyceride [Mass/Vol] 148 mg/dL <=150 F [facility] Serum or plasma total choles terol/high density lipoprotein (HDL) cholesterol mass darwin 09-28-2024 Cholesterol.total/Choles terol in HDL [Mass ratio] Serum or plasma total cholesterol/high density lipoprotein (HDL) cholesterol mass rat [facility] Comment on above: 3.3 - 4.4 LOW RISK4. 4 - 7.1 AVERAGE RISK7.1 - 11.0 MODERATE RISK>11.0 HIGH RISK Erythrocyte distribution wid th Auto (RBC) [Ratio]on 06-29-2024 Erythrocyte distribution width (RBC) [Ratio] 14.6 % 11.0-15.0 [facility] Estimated glomerular filtrat ion rate (GFR) non- Americanon 06-29-2024 GFR/1.73 sq M.predicted among non-blacks MDRD (S/P/Bld) [Vol rate/Area] 41 mL/min/{1.73_m2} Low >=60 [facility] Hematocrit Auto (Bld) [Volum e fraction]on 06-29-2024 Hematocrit (Bld) [Volume fraction] 45.8 % 42.0-54.0 [facility] Hemoglobin [Mass/volume] in Bloodon 06-29-2024 Hemoglobin (Bld) [Mass/Vol] 14.6 g/dL 14.0-18.0 [facility] Laboratory - Chemistry and C hemistry - challengeon 06-29-2024 Albumin [Mass/Vol] 3.7 g/dL 3.4-5.0 [facility] Calcium [Mass/Vol] 8.9 mg/dL 8.5-10.1 [facility] Chloride [Moles/Vol] 104 mmol/L 98-107 [facility] CO2 [Moles/Vol] 24.1 mmol/L 21.0-32.0 [facility] Creatinine [Mass/Vol] 1.66 mg/dL High 0.70-1.30 [facility] GFR/1.73 sq M.predicted MDRD (S/P/Bld) [Vol rate/Area] 50 mL/min/{1.73_m2} Low >=60 [facility] Glucose [Mass/Vol] 203 mg/dL High 74-106 [facility] Magnesium [Mass/Vol] 2.1 mg/dL 1.8-2.4 [facility] Potassium [Moles/Vol] 4.3 mmol/L 3.5-5.1 [facility] Sodium [Moles/Vol] 138 mmol/L 136-145 [facility] Urate [Mass/Vol] 7.0 mg/dL 3.5-7.2 [facility] Urea nitrogen [Mass/Vol] 26.0 mg/dL High 7.0-18.0 [facility] Urea nitrogen/Creatinine [Mass ratio] 15.7 mg/mg [facility] Bilirubin Ql (U) Negative NEGATIVE [facility] Glucose (U) [Mass/Vol] mg/dL Abnormal NEGATIVE [facility] Ketones Ql (U) Negative NEGATIVE [facility] pH (U) 5.5 [pH] 5.0-9.0 [facility] Specific gravity (U) [Rel density] 1.020 1.005-1.025 [facility] Urobilinogen Qn (U) 0.2 {Dolores'U}/dL 0.2-1.0 [facility] Laboratory - Specimen inform ationon 06-29-2024 Appearance (U) CLEAR CLEAR [facility] Color (U) YELLOW YELLOW [facility] Laboratory - Urinalysison Leukocyte esterase Test strip Ql (U) Negative NEGATIVE [facility] Mucus Ql (Urine sed) NONE SEEN NONE SEEN [facility] Nitrite Ql (U) Negative NEGATIVE [facility] Protein (U) [Mass/Vol] 36.2 mg/dL High <=11.9 [facility] Protein Ql (U) 30 mg/dL Abnormal NEG/TRACE [facility] Leukocytes [#/volume] correc ritu for nucleated erythrocytes in Blood by Automated counon 06-29-2024 WBC corrected for nucl RBC Auto (Bld) [#/Vol] 5.3 10 3/uL 4.0-11.0 [facility] MCH Auto (RBC) [Entitic mass ]on 06-29-2024 MCH (RBC) [Entitic mass] 27.4 pg 25.9-34.0 [facility] MCHC Auto (RBC) [Mass/Vol]on 06-29-2024 MCHC (RBC) [Mass/Vol] 31.9 g/dL 29.9-35.2 [facility] MCV Auto (RBC) [Entitic vol] on 06-29-2024 MCV (RBC) [Entitic vol] 86.1 fL 80.0-94.0 F [facility] No Panel Informationon 06-29 25-Hydroxy Vitamin D Total 60.0 ng/mL [facility] Comment on above: <20 ng/mL Vit D defi cient20-<30 ng/mL Vit D [id number] ng/mL Vit D sufficient>100 ng/mL Potential Toxicity Parathyroid Hormone (Intact) 67 pg/mL Abnormal 15-65 [facility] Comment on above: Performed at: [facility] [address] [id number] Director: Robin Mead PhD, Phone: [phone] Phosphorus Level 3.4 mg/dL 2.6-4.7 [facility] Urine Bacteria TRACE #/HPF Abnormal NONE SEEN [facility] Urine Culture Reflexed NO [facility] Urine Occult Blood Negative NEGATIVE [facility] Urine Other Casts NONE SEEN #/LPF NONE SEEN [facility] Urine Other Crystals None Seen #/HPF None Seen [facility] Urine Random Creatinine 87.30 mg/dL 20.0 0-300.0 0 [facility] Urine RBC NONE SEEN #/HPF 0-2 [facility] Urine Squamous Epithelial Cells RARE #/LPF NONE/RARE [facility] Urine WBC NONE SEEN #/HPF NONE SEEN [facility] Platelet mean volume Auto (B ld) [Entitic vol]on 06-29-2024 Platelet mean volume (Bld) [Entitic vol] 10.6 fL 9.5-13.5 [facility] Platelets Auto (Bld) [#/Vol] on 06-29-2024 Platelets (Bld) [#/Vol] 157 10 3/uL 150-450 [facility] RBC Auto (Bld) [#/Vol]on RBC (Bld) [#/Vol] 5.32 10 6/uL 4.70-6.10 [facility] Serum or plasma anion gap de terminationon 06-29-2024 Anion gap [Moles/Vol] 14.2 mmol/L [facility] Urine protein/creatinine rat ioon 06-29-2024 Protein/Creatinine (U) [Ratio] 0.41 [facility] HbA1c HPLC (Bld) [Mass fract ion]on 03-24-2024 HbA1c (Bld) [Mass fraction] 6.6 % [facility] No Panel Informationon 03-24 Bedside Glucose 110 [facility] Estimated glomerular filtrat ion rate (GFR) non- Americanon 01-08-2024 GFR/1.73 sq M.predicted among non-blacks MDRD (S/P/Bld) [Vol rate/Area] 41 mL/min/{1.73_m2} >=60 [facility] Laboratory - Chemistry and C hemistry - challengeon 01-08-2024 Calcium [Mass/Vol] 8.7 mg/dL 8.5-10.1 [facility] Chloride [Moles/Vol] 105 mmol/L 98-107 [facility] CO2 [Moles/Vol] 29.2 mmol/L 21.0-32.0 [facility] Creatinine [Mass/Vol] 1.67 mg/dL 0.70-1.30 [facility] GFR/1.73 sq M.predicted MDRD (S/P/Bld) [Vol rate/Area] 49 mL/min/{1.73_m2} >=60 [facility] Glucose [Mass/Vol] 161 mg/dL 74-106 [facility] Potassium [Moles/Vol] 5.0 mmol/L 3.5-5.1 [facility] Sodium [Moles/Vol] 141 mmol/L 136-145 [facility] Urea nitrogen [Mass/Vol] 32.0 mg/dL 7.0-18.0 [facility] Urea nitrogen/Creatinine [Mass ratio] 19.2 mg/mg [facility] Serum or plasma anion gap de terminationon 01-08-2024 Anion gap [Moles/Vol] 11.8 mmol/L [facility] Automated epithelial cells c ount in urine sediment (number/area)on 01-04-2024 Epithelial cells Auto (Urine sed) [#/Area] RARE #/LPF NONE/RARE [facility] Automated leukocytes count i n urine sediment (number/area)on 01-04-2024 WBC Auto (Urine sed) [#/Area] NONE SEEN #/HPF 0-2 [facility] Automated urine specific gra vity by refractometryon 01-04-2024 Specific gravity Refractometry automated (U) [Rel density] 1.025 1.005-1.025 [facility] Bilirubin Auto test strip (U ) [Mass/Vol]on 01-04-2024 Bilirubin (U) [Mass/Vol] Negative NEGATIVE [facility] Color Auto (U)on 01-04-2024 Color (U) LT. YELLOW YELLOW [facility] Erythrocyte distribution wid th Auto (RBC) [Ratio]on 01-04-2024 Erythrocyte distribution width (RBC) [Ratio] 15.2 % 11.0-15.0 [facility] Estimated glomerular filtrat ion rate (GFR) non- Americanon 01-04-2024 GFR/1.73 sq M.predicted among non-blacks MDRD (S/P/Bld) [Vol rate/Area] 47 mL/min/{1.73_m2} >=60 [facility] Hematocrit Auto (Bld) [Volum e fraction]on 01-04-2024 Hematocrit (Bld) [Volume fraction] 46.3 % 42.0-54.0 [facility] Hemoglobin [Mass/volume] in Bloodon 01-04-2024 Hemoglobin (Bld) [Mass/Vol] 14.1 g/dL 14.0-18.0 [facility] Iron binding capacity [Mass/ volume] in Serum or Plasmaon 01-04-2024 Iron binding capacity [Mass/Vol] 291.0 ug/dL 250.0-450.0 [facility] Iron saturation [Mass Fracti on] in Serum or Plasmaon 01-04-2024 Iron saturation [Mass fraction] 27.8 % [facility] Ketones Auto test strip (U) [Mass/Vol]on 01-04-2024 Ketones (U) [Mass/Vol] Negative NEGATIVE [facility] Laboratory - Chemistry and C hemistry - challengeon 01-04-2024 Albumin [Mass/Vol] 3.5 g/dL 3.4-5.0 [facility] Calcium [Mass/Vol] 8.7 mg/dL 8.5-10.1 [facility] Chloride [Moles/Vol] 106 mmol/L 98-107 [facility] CO2 [Moles/Vol] 26.1 mmol/L 21.0-32.0 [facility] Creatinine [Mass/Vol] 1.46 mg/dL 0.70-1.30 [facility] Ferritin [Mass/Vol] 88.0 ng/mL 26.0-388.0 [facility] GFR/1.73 sq M.predicted MDRD (S/P/Bld) [Vol rate/Area] 57 mL/min/{1.73_m2} >=60 [facility] Glucose [Mass/Vol] 118 mg/dL 74-106 [facility] Iron [Mass/Vol] 81.0 ug/dL 65.0-175.0 [facility] Magnesium [Mass/Vol] 2.3 mg/dL 1.8-2.4 [facility] Potassium [Moles/Vol] 4.7 mmol/L 3.5-5.1 [facility] Sodium [Moles/Vol] 140 mmol/L 136-145 [facility] Urate [Mass/Vol] 6.4 mg/dL 3.5-7.2 [facility] Urea nitrogen [Mass/Vol] 31.0 mg/dL 7.0-18.0 [facility] Urea nitrogen/Creatinine [Mass ratio] 21.2 mg/mg [facility] Leukocytes [#/volume] correc ritu for nucleated erythrocytes in Blood by Automated counon 01-04-2024 WBC corrected for nucl RBC Auto (Bld) [#/Vol] 5.4 10 3/uL 4.0-11.0 [facility] MCH Auto (RBC) [Entitic mass ]on 01-04-2024 MCH (RBC) [Entitic mass] 26.5 pg 25.9-34.0 [facility] MCHC Auto (RBC) [Mass/Vol]on 01-04-2024 MCHC (RBC) [Mass/Vol] 30.5 g/dL 29.9-35.2 [facility] MCV Auto (RBC) [Entitic vol] on 01-04-2024 MCV (RBC) [Entitic vol] 87.0 fL 80.0-94.0 F [facility] Mucus LM Ql (Urine sed)on Mucus Ql (Urine sed) NONE SEEN NONE SEEN [facility] No Panel Informationon 01-04 Parathyroid Hormone (Intact) 21 pg/mL 15-65 [facility] Comment on above: Performed at: [facility] [address] [place] [id number] Director: Robin Mead PhD, Phone: [phone] Phosphorus Level 4.1 mg/dL 2.6-4.7 [facility] Platelet mean volume Auto (B ld) [Entitic vol]on 01-04-2024 Platelet mean volume (Bld) [Entitic vol] 12.0 fL 9.5-13.5 [facility] Platelets Auto (Bld) [#/Vol] on 01-04-2024 Platelets (Bld) [#/Vol] 106 10 3/uL 150-450 [facility] Protein Auto test strip (U) [Mass/Vol]on 01-04-2024 Protein (U) [Mass/Vol] 30 mg/dL NEG/TRACE Fi [facility] RBC Auto (Bld) [#/Vol]on RBC (Bld) [#/Vol] 5.32 10 6/uL 4.70-6.10 [facility] Serum or plasma anion gap de terminationon 01-04-2024 Anion gap [Moles/Vol] 12.6 mmol/L Fi [facility] Specific gravity Auto test s trip (U) [Rel density]on 01-04-2024 Specific gravity (U) [Rel density] CLEAR CLEAR [facility] Urine bacteria detection by automated methodon 01-04-2024 Bacteria Auto Ql (U) NONE SEEN #/HPF NONE SEEN [facility] Urine glucose measurement by test strip (mass/volume)on 01-04-2024 Glucose Test strip (U) [Mass/Vol] >=1000 mg/dL NEGATIVE [facility] Urine hemoglobin detection b y automated test stripon 01-04-2024 Hemoglobin Auto test strip Ql (U) Negative NEGATIVE [facility] Urine nitrite detection by a utomated test stripon 01-04-2024 Nitrite Auto test strip Ql (U) Negative NEGATIVE [facility] Urine sediment leukocyte cou nt by microscopy (number/high power field)on 01-04-2024 WBC LM.HPF (Urine sed) [#/Area] NONE SEEN #/HPF NONE SEEN [facility] Urobilinogen Auto test strip (U) [Mass/Vol]on 01-04-2024 Urobilinogen Qn (U) 0.2 {Dolores'U}/dL 0.2-1.0 [facility] pH Auto test strip (U)on pH (U) 5.5 [pH] 5.0-9.0 [facility] A1C HEMOGLOBINon 12-22-2023 HbA1c (Bld) [Mass fraction] 7.7 % [facility] [employer] Other Glucose - FINGER STICKon Glucose [Mass/Vol] 137 mg/dL [facility] [employer] Other HbA1c (Bld) [Mass fraction]o n 12-22-2023 A1C HEMOGLOBIN [facility] [employer] Other Calcium [Mass/volume] in Ser um or PlasmaOrdered By: Britney Yu on 11-05-2023 Calcium [Mass/Vol] 9.1 mg/dL 8.6-10.3 [facility] Carbon dioxide, total [Moles /volume] in Serum or PlasmaOrdered By: Britney Yu on 11-05-2023 CO2 [Moles/Vol] 22.5 mmol/L 21.0-31.0 [facility] Chloride [Moles/volume] in S niya or PlasmaOrdered By: Britney Yu on 11-05-2023 Chloride [Moles/Vol] 104 mmol/L 98-107 [facility] Creatinine [Mass/volume] in Serum or PlasmaOrdered By: Britney Yu on 11-05-2023 Creatinine [Mass/Vol] 1.66 mg/dL 0.70-1.30 [facility] Glucose [Mass/volume] in Ser um or PlasmaOrdered By: Britney Yu on 11-05-2023 Glucose [Mass/Vol] 354 mg/dL 70-100 [facility] Comment on above: ADA recommended refe rence rangeRandom Glucose Reference Range is dependent on time and content of last meal. Glucose of more than 200 mg/dL in a nonstressed, ambulatory subject supports the diagnosis of Diabetes Mellitus. No Panel InformationOrdered By: Britney Yu on 11-05-2023 Estimated GFR (CKD-EPI) 43.529 mL/Min [facility] Creatinine Clearance (Chem N/A [facility] Potassium [Moles/volume] in Serum or PlasmaOrdered By: Britney Yu on 11-05-2023 Potassium [Moles/Vol] 4.5 mmol/L 3.5-5.1 [facility] Serum or plasma anion gap de terminationOrdered By: Britney Yu on 11-05-2023 Anion gap [Moles/Vol] 14.0 mmol/L 6.0-15.0 [facility] Sodium [Moles/volume] in Ser um or PlasmaOrdered By: Britney Yu on 11-05-2023 Sodium [Moles/Vol] 136 mmol/L 136-145 [facility] Urea nitrogen [Mass/volume] in Serum or PlasmaOrdered By: Britney Yu on 11-05-2023 Urea nitrogen [Mass/Vol] 43 mg/dL 7-25 [facility] Calcium [Mass/volume] in Ser um or PlasmaOrdered By: Britney Yu on 10-26-2023 Calcium [Mass/Vol] 9.5 mg/dL 8.6-10.3 [facility] Carbon dioxide, total [Moles /volume] in Serum or PlasmaOrdered By: Britney Yu on 10-26-2023 CO2 [Moles/Vol] 25.0 mmol/L 21.0-31.0 [facility] Chloride [Moles/volume] in S niya or PlasmaOrdered By: Britney Yu on 10-26-2023 Chloride [Moles/Vol] 109 mmol/L 98-107 [facility] Creatinine [Mass/volume] in Serum or PlasmaOrdered By: Britney Yu on 10-26-2023 Creatinine [Mass/Vol] 1.59 mg/dL 0.70-1.30 [facility] Glucose [Mass/volume] in Ser um or PlasmaOrdered By: Britney Yu on 10-26-2023 Glucose [Mass/Vol] 206 mg/dL 70-100 [facility] Comment on above: ADA recommended refe rence rangeRandom Glucose Reference Range is dependent on time and content of last meal. Glucose of more than 200 mg/dL in a nonstressed, ambulatory subject supports the diagnosis of Diabetes Mellitus. No Panel InformationOrdered By: Britney Yu on 10-26-2023 Estimated GFR (CKD-EPI) 45.838 mL/Min [facility] Creatinine Clearance (Chem N/A [facility] Potassium [Moles/volume] in Serum or PlasmaOrdered By: Britney Yu on 10-26-2023 Potassium [Moles/Vol] 5.1 mmol/L 3.5-5.1 [facility] Serum or plasma anion gap de terminationOrdered By: Britney Yu on 10-26-2023 Anion gap [Moles/Vol] 13.1 mmol/L 6.0-15.0 [facility] Sodium [Moles/volume] in Ser um or PlasmaOrdered By: Britney Yu on 10-26-2023 Sodium [Moles/Vol] 142 mmol/L 136-145 [facility] Urea nitrogen [Mass/volume] in Serum or PlasmaOrdered By: Britney Yu on 10-26-2023 Urea nitrogen [Mass/Vol] 28 mg/dL 7-25 [facility] Glucose Glucometer (BldC) [M ass/Vol]Ordered By: Rodney Victor on 10-21-2023 Glucose [Mass/Vol] 155 mg/dL [facility] Comment on above: Random Glucose Refer ence Range is dependent on time and content of last meal. Glucose of more than 200 mg/dL in a nonstressed, ambulatory subject supports the diagnosis of Diabetes Mellitus. Glucose - FINGER STICKon Glucose [Mass/Vol] 215 mg/dL [employer] Other Tobacco Screening.on 023 Fall risk assessment a) No falls within the last year -[facility] [address] DO Work Phone: Tobacco use status [facility]PHS b) No M P-[facility] [address] DO Work Phone: Office Visit (Cardiology)on [...] Patient is no longer receiving care from [place] [facility]: Transferred care to [facility] with new patient assessment by Dr. Osborn [...] January, there has been further prolongation of [place] interval and mild elongation of QRS duration. [...] a diabe (more content not included)... Normal [employer] Tobacco Screening.on 023 Tobacco use status CPHS b) No M [place] [id number] DO Work Phone: [facility] MUGA SCAN INJECTIONon [facility] MUGA SCAN INJECTION Patient Name: ADRIEL GIRALDO STUDY: MUGA Performing facility: [facility], [address] [place] [address], [address], [address] Provider: Odilia Mackenzie RN, DOCTOR OF PHARMACY PCP: Dr. Sam Perez Supervising provider: Jemima Gastelum MD INDICATION: Cardiomyopathy HISTORY: Gender: M; Age: 72 y/o ; Height: 0 cm; Weight: 131.767041 kg. High Cholesterol; HTN; Denies smoking. COMPARISON: Previous nuclear testing completed [id number] MPI EF=31% at [facility]. Previous echo testing completed [id number] EF= 25-30% at [facility]. ACCESSION NUMBER(S): [id number]; [id number] ORDERING CLINICIAN: ODILIA MACKENZIE TECHNIQUE: The patient [...] comparison Electronically signed by: JEMIMA GASTELUM MD [facility] No Panel Informationon 04-27 [facility] Work Phone: IMMUNOFIXATION (EMILY), URINEo n 04-15-2023 EMILY Interpretation:U Comment Normal [facility] Comment on above: Result Comment: No m onoclonality detected. Performed By: #### I MUNFXU #### [facility] [address] [address] [address] Santos Mchugh PROTEIN ELECTROPHERESIS URIN E RANDOMon 04-15-2023 Albumin, U 66.6 % Normal [facility] Comment on above: Performed By: #### U PTE #### [facility] [address] [address] [address] Santos Mchugh Alpha-1 Globulin U 4.9 % Normal [facility] Comment on above: Performed By: #### U PTE #### [facility] [address] [place] [address] Dr. Santos Mchugh Alpha-2 Glubulin U 7.5 % Normal [facility] Comment on above: Performed By: #### U PTE #### [facility] [address] [address] [address] Santos Mchugh Beta Globulin, U 12.9 % Normal [facility] Comment on above: Performed By: #### U PTE #### [facility] [address] [address] [address] Santos Mchugh Gamma Globulin U 8.1 % Normal [facility] Comment on above: Performed By: #### U PTE #### [facility] [address] [address] [address] Santos Mchugh M-Tavo, % Not Observed Normal Not Observed [facility] Comment on above: Performed By: #### U PTE #### [facility] [address] [address] [address] Santos Mchugh PDF . Normal [facility] Comment on above: Performed By: #### U PTE #### [facility] [address] [place] [address] Dr. Santos Mchugh Please note: Comment Normal [facility] Comment on above: Result Comment: Prot ein electrophoresis scan will follow via computer, mail, or load dispatcher local delivery. Performed By: #### U PTE #### [facility] [address] [place] [address] Dr. Santos Mchugh Protein (U) [Mass/Vol] 64.1 mg/dL Normal Not Estab. Th e [facility] Comment on above: Performed By: #### U PTE #### [facility] [address] [place] [address] Dr. Santos Mchugh FREE LIGHT CHAINS PLUS RATIO on 04-14-2023 Free [place] Lt Chains,S 49.2 mg/L Critically high 3.3-19.4 [facility] Comment on above: Performed By: #### F REELIT #### [facility] [address] [place] [address] Dr. Santos Mchugh Free Lambda Lt Chains,S 19.3 mg/L Normal 5.7-26.3 [facility] Comment on above: Performed By: #### F REELIT #### [facility] [address] [place] [address] Dr. Santos Mchugh [place]/Lambda Ratio, S 2.55 Critically high 0.26-1.65 [facility] Comment on above: Performed By: #### F REELIT #### [facility] [address] [place] [address] Dr. Santos Mchugh IMMUNOFIXATION (EMILY), SERUMo n 04-14-2023 IMMUNOFIXATION RESULT Comment Normal [facility] Comment on above: Result Comment: No m onoclonality detected. Performed By: #### U AMIC #### [facility] [address] [place] [address] Dr. Santos Mchugh Immunoglobulin A, Qn, Serum 186 mg/dL Normal 61-437 [facility] Comment on above: Performed By: #### U AMIC #### [facility] [address] [place] [address] Dr. Santos Mchugh Immunoglobulin G, Qn, Serum 854 mg/dL Normal 603-1613 [facility] Comment on above: Performed By: #### U AMIC #### [facility] [address] [address] [address] Santos Mchugh Immunoglobulin M, Qn, Serum 62 mg/dL Normal 15-143 [facility] Comment on above: Performed By: #### U AMIC #### [facility] [address] [address] [address] Santos Mchugh PROTEIN ELECTROPHERESISon Albumin [Mass/Vol] 3.5 g/dL Normal 2.9-4.4 [facility] Comment on above: Performed By: #### P RTELEC #### [facility] [address] [address] [address] Santos Mchugh Albumin/Globulin [Mass ratio] 1.1 {ratio} Normal 0.7-1.7 [facility] Comment on above: Performed By: #### P RTELEC #### [facility] [facility] [address] [place] [address] Dr. Santos Mchugh Rkimd-6-Zgxcijfs 0.2 g/dL Normal 0.0-0.4 [facility] Comment on above: Performed By: #### P RTELEC #### [facility] [address] [place] [address] Dr. Santos Mchugh Amfov-7-Kbdnfqha 0.9 g/dL Normal 0.4-1.0 [facility] Comment on above: Performed By: #### P RTELEC #### [facility] [address] [place] [address] Dr. Santos Mchugh Beta Globulin 1.2 g/dL Normal 0.7-1.3 [facility] Comment on above: Performed By: #### P RTELEC #### [facility] [address] [place] [address] Dr. Santos Mchugh Gamma Globulin 0.8 g/dL Normal 0.4-1.8 [facility] Comment on above: Performed By: #### P RTELEC #### [facility] [address] [place] [address] Dr. Santos Mchugh Globulin (S) [Mass/Vol] 3.1 g/dL Normal 2.2-3.9 [facility] Comment on above: Performed By: #### P RTELEC #### [facility] [address] [place] [address] Dr. Santos Mchugh M-Tavo Comment: Normal Not Observed [facility] Comment on above: Result Comment: SPE shows asymmetrical beta. Performed By: #### P RTELEC #### [facility] [address] [place] [address] Dr. Santos Mchugh PDF . Normal [facility] Comment on above: Performed By: #### P RTELEC #### [facility] [address] [place] [address] Dr. Santos Mchugh Please note: Comment Normal [facility] Comment on above: Result Comment: Prot ein electrophoresis scan will follow via computer, mail, or load dispatcher local delivery. Performed By: #### P RTELEC #### [facility] [address] [place] [address] Dr. Santos Mchugh Protein [Mass/Vol] 6.6 g/dL Normal 6.0-8.5 [facility] Comment on above: Performed By: #### P RTELEC #### [facility] [address] [place] [address] Dr. Santos Mchugh PTH INTACTon 04-11-2023 PTH, Intact 52 pg/mL Normal 15-65 [facility] Comment on above: Performed By: #### P THINT #### [facility] [address] [place] [address] Dr. Santos Mchugh HEMOGRAM AND PLATELon 2022 Hematocrit (Bld) [Volume fraction] 41.9 % Critically low 42.0-54.0 [facility] Comment on above: Performed By: #### U AMIC #### [facility] [address] [place] [address] Dr. Santos Mchugh Hemoglobin (Bld) [Mass/Vol] 13.3 g/dL Critically low 14.0-18.0 [facility] Comment on above: Performed By: #### U AMIC #### [facility] [address] [place] [address] Dr. Santos Mchugh MCH (RBC) [Entitic mass] 26.3 pg Normal 25.9-34.0 [facility] Comment on above: Performed By: #### U AMIC #### [facility] [address] [place] [address] Dr. Santos Mchugh MCHC (RBC) [Mass/Vol] 31.7 g/dL Normal 29.9-35.2 [facility] Comment on above: Performed By: #### U AMIC #### [facility] [address] [place], [place] [id number] Dr. Santos Mchugh MCV (RBC) [Entitic vol] 82.8 fL Normal 80.0-94.0 [facility] Comment on above: Performed By: #### U AMIC #### [facility] [address] [place] [address] Dr. Santos Mchugh PLT 167 103/ul Normal 150-450 [facility] Comment on above: Performed By: #### U AMIC #### [facility] [address] [place] [address] Dr. Santos Mchugh RBC 5.06 106/ul Normal 4.70-6.10 [facility] Comment on above: Performed By: #### U AMIC #### [facility] [address] [place], [place] [id number] Dr. Santos Mchugh WBC 5.2 103/ul Normal 4.0-11.0 [facility] Comment on above: Performed By: #### U AMIC #### [facility] [address] [place] [address] Dr. Santos Mchugh Office Visit (Cardiology)on 04-10-2023 [...] with dilated LVEF 31%. I reviewed prior [facility] note dated August 25, 2022. Patient [...] Patient is no longer receiving care from [facility]: Transferred care to [facility] with new patient assessment by Dr. Osborn [...] reports that usually calibrated yearly by the [facility], will no longer be seen in the [facility] and referred to the sleep clinic [...] side eff (more content not included)... Normal [employer] RENAL FUNCTION PANELon 04-10 Albumin [Mass/Vol] 3.6 g/dL Normal 3.4-5.0 [facility] Comment on above: Performed By: #### U KAJAL, RENAL #### [facility] [address] [address] [address] Santos Mchugh Calcium [Mass/Vol] 8.9 mg/dL Normal 8.5-10.1 [facility] Comment on above: Performed By: #### U KAJAL, RENAL #### [facility] [address] [address] [address] Santos Mchugh Chloride [Moles/Vol] 103 mmol/L Normal 98-107 [facility] Comment on above: Performed By: #### U KAJAL, RENAL #### [facility] [address] [place] [address] Dr. Santos Mchugh CO2 [Moles/Vol] 28.4 mmol/L Normal 21.0-32.0 [facility] Comment on above: Performed By: #### U KAJAL, RENAL #### [facility] [address] [place] [address] Dr. Santos Mchugh Creatinine [Mass/Vol] 1.48 mg/dL Critically high 0.70-1.30 [facility] Comment on above: Performed By: #### U KAJAL, RENAL #### [facility] [address] [place] [address] Dr. Santos Mchugh EGFR-AF MARTINIQUAIS 57 mL/min/1.73m2 Critically low >=60 [facility] Comment on above: Performed By: #### U KAJAL, RENAL #### [facility] [address] [place] [address] Dr. Santos Mchugh EGFR-NON AF MARTINIQUAIS 47 mL/min/1.73m2 Critically low >=60 [facility] Comment on above: Performed By: #### U KAJAL, RENAL #### [facility] [address] [place] [address] Dr. Santos Mchugh Glucose [Mass/Vol] 122 mg/dL Critically high 74-106 [facility] Comment on above: Performed By: #### U KAJAL, RENAL #### [facility] [address] [place] [address] Dr. Santos Mchugh Phosphate [Mass/Vol] 3.9 mg/dL Normal 2.6-4.7 [facility] Comment on above: Performed By: #### U KAJAL, RENAL #### [facility] [address] [place] [address] Dr. Santos Mchugh Potassium [Moles/Vol] 4.5 mmol/L Normal 3.5-5.1 The [facility] Comment on above: Performed By: #### U KAJAL, RENAL #### [facility] [address] [address] [address] Santos Mchugh Sodium [Moles/Vol] 140 mmol/L Normal 136-145 [facility] Comment on above: Performed By: #### U KAJAL, RENAL #### [facility] [address] [address] [address] Santos Mchugh Urea nitrogen [Mass/Vol] 23.0 mg/dL Critically high 7.0-18 .0 [facility] Comment on above: Performed By: #### U KAJAL, RENAL #### [facility] [address] [place] [address] Dr. Santos Mchugh Tobacco Screening.on 023 Fall risk assessment a) No falls within the last year [facility] [employer] 250 DO Work Phone: Tobacco use status [facility]PHS b) No M [facility] DO Work Phone: UA RANDOM W/MICROSCOPICon BACTERIA NONE SEEN Normal NONE SEEN [facility] Comment on above: Performed By: #### U AMIC #### [facility] [address] [place] [address] Dr. Santos Mchugh Bilirubin Ql (U) Negative Normal NEGATIVE The [facility] Comment on above: Performed By: #### U AMIC #### [facility] [address] [address] [address] Santos Mchugh CAST NONE SEEN Normal NONE SEEN The [facility] Comment on above: Performed By: #### U AMIC #### [facility] [address] [address] [address] Santos Mchugh Clarity (U) CLEAR Normal CLEAR The [facility] Comment on above: Performed By: #### U AMIC #### [facility] [address] [address] [address] Santos Mchugh Color (U) LT. YELLOW Normal YELLOW The [facility] Comment on above: Performed By: #### U AMIC #### [facility] [address] [address] [address] Santos Mchugh Crystals LM Nom (Urine sed) NONE SEEN Normal NONE SEEN [facility] Comment on above: Performed By: #### U AMIC #### [facility] [address] [address] [address] Santos Mchugh Epithelial cells LM Ql (Urine sed) NONE SEEN Normal NONE SEEN /RARE The [facility] Comment on above: Performed By: #### U AMIC #### [facility] [address] [address] [address] Santos Mchugh Glucose Ql (U) Negative Normal NEGATIVE The [facility] Comment on above: Performed By: #### U AMIC #### [facility] [address] [address] [address] Santos Mchugh Hemoglobin Ql (U) Negative Normal NEGATIVE The [facility] Comment on above: Performed By: #### U AMIC #### [facility] [address] [address] [address] Santos Mchugh Ketones Ql (U) Negative Normal NEGATIVE The [facility] Comment on above: Performed By: #### U AMIC #### [facility] [address] [address] [address] Santos Mchugh LEUKOCYTES Negative Normal NEGATIVE The [facility] Comment on above: Performed By: #### U AMIC #### [facility] [address] [address] [address] Santos Mchugh MUCOUS NONE SEEN Normal NONE SEEN [facility] Comment on above: Performed By: #### U AMIC #### [facility] [address] [address] [address] Santos Mchugh Nitrite Ql (U) Negative Normal NEGATIVE The [facility] Comment on above: Performed By: #### U AMIC #### [facility] [address] [address] [address] Santos Mchugh pH (U) 6.0 [pH] Normal 5-9 The [facility] Comment on above: Performed By: #### U AMIC #### [facility] [address] [place] [address] Dr. Santos Mchugh RBC 0-2 Normal 0-2 The [facility] Comment on above: Performed By: #### U AMIC #### [facility] [address] [place] [address] Dr. Santos Mchugh SPEC GRAVITY 1.015 Normal 1.005-<=1.0 25 [facility] Comment on above: Performed By: #### U AMIC #### [facility] [address] [place] [address] Dr. Santos Mchugh UA PROTEIN 100 mg/dl Abnormal NEGATIVE/ TRACE The [facility] Comment on above: Performed By: #### U AMIC #### [facility] [address] [place] [address] Dr. Santos Mchugh Urobilinogen Qn (U) 0.2 {Dolores'U}/dL Normal 0.2 - 1. 0 The [facility] Comment on above: Performed By: #### U AMIC #### [facility] [address] [place] [address] Dr. Santos Mchugh WBC NONE SEEN Normal NONE SEEN The [facility] Comment on above: Performed By: #### U AMIC #### [facility] [address] [place] [address] Dr. Santos Mchugh URIC ACID SERUMon 04-10-2023 Urate [Mass/Vol] 7.0 mg/dL Normal 3.5-7.2 The [facility] Comment on above: Performed By: #### U KAJAL, RENAL #### [facility] [address] [place] [address] Dr. Santos Mchugh URINE T PROTEIN CREAT RATIOo n 04-10-2023 Protein (U) [Mass/Vol] 68.1 mg/dL Critically high <=12.0 The [facility] Comment on above: Performed By: #### U RTPCR #### [facility] [address] [place] [address] Dr. Santos Mchugh UR PROT CREAT RAT 0.97 Normal The [facility] Comment on above: Performed By: #### U RTPCR #### [facility] [address] [place] [address] Dr. Santos Mchugh URINE CREAT 70.53 mg/dL Normal 20.00-300.0 0 [facility] Comment on above: Performed By: #### U RTPCR #### [facility] [address] [place] [address] Dr. Santos Mchugh VITAMIN D 25 OHon 04-10-2023 VIT D 25-OH 41.0 ng/mL Normal [facility] Comment on above: Performed By: #### V ITAD #### [facility] [address] [place] [address] Dr. Santos Mchugh VIT D RANGES SEE BELOW Normal [facility] Comment on above: Result Comment: <20 ng/mL Vit D deficient 20 - <30 ng/mL Vit D insufficient 30 - 100 ng/mL Vit D sufficient >100 ng/mL Potential Toxicity Performed By: #### V ITAD #### [facility] [address] [place] [address] Dr. Santos Mchugh [facility] CARDIAC STRESS/REST INJE CTIONon 03-31-2023 [facility] CARDIAC STRESS/REST INJECTION Patient Name: ADRIEL GIRALDO STUDY: MYOCARDIAL PERFUSION STRESS TEST WITH LEXISCAN Performing facility: [facility], [address] [place] [address], [address] Provider: Lashell Osborn MD PCP: Dr. Sam Perez Supervising provider: Jemima Gastelum MD INDICATION: Abnormal EKG; Pre-operative risk assessment for Right knee scheduled at [facility] on TBD. HISTORY: Gender: M; Age: 72 y/o ; Height: 0 cm; Weight: 131.734903 kg. Abnormal EKG; High Cholesterol; Diabetes; HTN; Denies smoking. COMPARISON: No comparison. ACCESSION NUMBER(S): [id number]; [id number]; [id number] ORDERING CLINICIAN: LASHELL OSBORN TECHNIQUE: ONE DAY [...] Electronically signed by: JEMIMA GASTELUM MD Normal [facility] No Panel Informationon 03-31 FINAL REPORT Interpreted by: JEMIMA GASTELUM MD 04/01/23 16:28 Patient Name: ADRIEL GIRALDO STUDY: MYOCARDIAL PERFUSION STRESS TEST WITH LEXISCAN Performing facility: [facility], [address] [place] [address] Normal -[facility] 250 DO Work Phone: Office Visit (Cardiology)on [...] GIRALDO is being seen for POC for [place] Rt Knee. History of Present Illness 72 yo male here for pre-operative cardiac clearance prior to TKA of R knee. Patient has no complaints today including chest pain, VALENZUELA, presyncope/syncope. He is unable to complete > 4 METS due to knee pain. His ECG with incomplete LBBB. Has not had an ischemic evaluation in a few years. Initial visit: establish care. Has a reported [...] TabletTAKE 1.5 TABLET 3 times daily Saw Viola 1000 MG Oral CapsuleTAKE DIRECTED. Vitamin D3 [...] Signs Recorded: 23Jan2023 09:16AM Heart Rate63, Apical Muydgjvt697, LUE, Sitting Nvountbrq70, LUE, Sitting Height6 ft 2 in Uqqkoc199 lb BMI Nwpdiyzixt69.75 kg/m2 BSA Calculated2.56 Tobacco Useb) No PHQ-2 [...] Will c (more content not included)... Normal [employer] Tobacco Screening.on 023 Adult depression screening assessment No [facility] 250 DO Work Phone: Fall risk assessment a) No falls within the last year [facility] 250 DO Work Phone: Tobacco use status CPHS b) No M [facility] [employer] 250 DO Work Phone: MRI Knee w/o [...] Popliteal fossa structures are intact. Thin septated Glao's cyst measures approximately 5 cm in craniocaudal length. IMPRESSION: Horizontal tear of the body through posterior horn of the lateral meniscus. Horizontal tear of the posterior horn of the medial meniscus. Report reported and signed by Abhinav Muller on 01/07/2023 1009 Normal [facility] [employer] Office Visit (Cardiology)on 12-26-2022 Follow-up visit Diagnoses/Problems Assessed Cardiomyopathy (425.4) (I42.9) CHF (NYHA class II, ACC/AHA stage C) (428.0) (I50.9) Hyperlipidemia (272.4) (E78.5) Primary hypertension (401.9) (I10) Class 2 obesity with body mass index (BMI) of 37.0 to 37.9 in adult (278.00,V85.37) (E66.9,Z68.37) Obstructive sleep apnea, adult (327.23) (G47.33) Never a smoker Orders Cardiomyopathy IO EKG Electrocardiogram- 12 Lead; Status:Complete; Done: [id number] Cardiomyopathy, Primary hypertension Renew: Carvedilol 12.5 MG [...] For - Scheduling,Retrospec tive Authorization Requested for: [id number] SocHx: Never a smoker Tobacco Use Screening; Status:Complete; Done: [id number] Patient Instructions Please bring all medicines, vitamins, [...] seen for a consultation for CHF- former [facility]. History of Present Illness 72 yo [...] TabletTAKE 1.5 TABLET 3 times daily Saw Viola 1000 MG Oral CapsuleTAKE DIRECTED. Vitamin D3 [...] negative for complaint. Vitals Vital Signs Recorded: [id number] 10:52AMRecorded: 26Uod4907 10:51AM Wuwuovcp608, LUE, Fxtdtlb931, RUE, Sitting Zcbcvnqtm52, LUE, Xanellf68, RUE, Sitting Heart Rate61, Apical Height6 ft 2 in Hbrbvf882 lb BMI Annzvniyhf19.75 kg/m2 BSA Calculated2.56 Tobacco Useb) No PHQ-2 [...] current therap (more content not included)... Normal [employer] Tobacco Screening.on 023 Adult depression screening assessment No [facility] 250 DO Work Phone: Fall risk assessment a) No falls within the last year [facility] [employer] 250 DO Work Phone: Tobacco use status CPHS b) No [facility] [employer] DO Work Phone: Quick Fluon 09-08-2022 FLUAV Ab CF (S) [Titer] Negative N [facility]BI Other FLUBV Ab CF (S) [Titer] Negative [facility]BI Other SARS-CoV-2 (COVID-19) RNA NA A+probe Ql (Resp)on 09-08-2022 SARS-CoV-2 (COVID-19) RNA HECTOR+probe Ql (Unsp spec) Positive [employer] Other Auth for Release of Medical Recordson 11-15-2020 Auth for Release of Medical Records [id number] #1.00CD:127 [facility] Formson 09-11-2020 Forms [id number] #1.00CD:127 [facility] Physician Referralon 020 Physician Referral [id number]# 1.00CD:127 [facility] Ambulatory Clinical Summaryo n 09-07-2020 Ambulatory Clinical Summary {[id number]}CD:[id number] [facility] Patient Educationon 09-07-20 20 Patient [...] Document Reviewed: 07/07/2008 ExitCare? Patient Information ?2013 [employer]™. Erectile Dysfunction Erectile dysfunction (ED) is the [...] Document Reviewed: 02/22/2012 ExitCare? Patient Information ?2013 [employer]™. [facility] Urology Office/Clinic Noteon 09-07-2020 Urology [...] use pde5s due to nitro meds. reviewed CUT OFF SAW TENDER METAL papers. Reviewed UA. There have been no [...] that he has PSA tony at the [place], and states that the levels are normal. SHANELLE was done today and was negative for any nodules. I have reviewed the previous health record information and history for this patient from Dr. Silverio Follow-up With When Contact Information JEAN CLAUDE JARA, Kevin Becker if needed [facility] [address] [place] [id number]- [phone] Additional Instructions: Patient Education Benign Prostatic Hyperplasia [...] Dipstick: 2+ (100 mg/dl) (09/07/20 10:27:00) Specific [place] Urine Dipstick: 1.025 (09/07/20 10:27:00) Urine Appearance Urine Dipstick: Clear (09/07/20 10:27:00) Urine Color Urine Dipstick: Yellow (09/07/20 10:27:00) Urobilinogen Urine Dipstick: Normal 0.2-1 EU/dl (09/07/20 10:27:00) pH Urine Dipstick: 5.5 (09/07/20 10:27:00) Normal [facility] Comment on above: Result Comment: Elec tronically Signed By: Kevin SILVERIO MD\.br\Date and Time Signed: 09/07/20 11:19 EDT\.br\Electronically Co-Signed By: Lashell Kimbrough MA\.br\Date and Time Co-Signed: 09/07/20 11:16 EDT Vital Signs Date Time Vital Sign Value Performing Clinician Facility 06-12-2025 10:18-0400 Body height 185.42 cm Jun Perez MD Work Phone: [facility] 06-12-2025 10:18-0400 Body mass index (BMI) [Ratio] 34.7 kg/m2 Jun Perez MD Work Phone: [facility] 06-12-2025 10:18-0400 Body weight 119.29 kg Jun Perez MD Work Phone: [facility] 05-31-2025 13:31-0400 Body height 185.42 cm Jun Perez MD Work Phone: [facility] 05-31-2025 13:31-0400 Body mass index (BMI) [Ratio] 34.7 kg/m2 Jun Perez MD Work Phone: [facility] 05-31-2025 13:31-0400 Body weight 119.29 kg Jun Perez MD Work Phone: [facility] 05-31-2025 13:31-0400 Diastolic blood pressure 74 mm[Hg] Jun Perez MD Work Phone: [facility] 05-31-2025 13:31-0400 Heart rate 55 /min Jun Perez MD Work Phone: [facility] 05-31-2025 13:31-0400 Systolic blood pressure 134 mm[Hg] Jun Perez MD Work Phone: [facility] 04-27-2025 10:18-0400 Body height 188 cm Bony Gibson DPM Work Phone: [facility] 04-27-2025 10:18-0400 Body mass index (BMI) [Ratio] 34.02 kg/m2 Bony Gibson DPM Work Phone: [facility] 04-27-2025 10:18-0400 Body weight 120.2 kg Bony Gibson DPM Work Phone: [facility] 04-27-2025 10:18-0400 Respiratory rate 16 /min Bony Gibson DPM Work Phone: [facility] 03-30-2025 09:37-0400 Body height 185.42 cm [facility] 03-30-2025 09:37-0400 Body mass index (BMI) [Ratio] 35.7 kg/m2 [facility] 03-30-2025 09:37-0400 Body weight 122.8 kg [facility] 03-30-2025 09:37-0400 Diastolic blood pressure 69 mm[Hg] [facility] 03-30-2025 09:37-0400 Heart rate 57 /min [facility] 03-30-2025 09:37-0400 Respiratory rate 18 /min [facility] 03-30-2025 09:37-0400 SaO2% (BldA) [Mass fraction] 95 % [facility] 03-30-2025 09:37-0400 Systolic blood pressure 126 mm[Hg] [facility] 02-16-2025 09:18-0400 Body height 188 cm Bony Gibson DPM Work Phone: [facility] 02-16-2025 09:18-0400 Body mass index (BMI) [Ratio] 34.02 kg/m2 Bony Gibson DPM Work Phone: [facility] 02-16-2025 09:18-0400 Body weight 120.2 kg Bony Gibson DPM Work Phone: [facility] 02-16-2025 09:18-0400 Respiratory rate 16 /min Bony Gibson DPM Work Phone: [facility] 02-14-2025 09:42-0400 Body height 185.42 cm Jun Perez MD Work Phone: [facility] 02-14-2025 09:42-0400 Body mass index (BMI) [Ratio] 35.2 kg/m2 Jun Perez MD Work Phone: [facility] 02-14-2025 09:42-0400 Body weight 121.1 kg Jun Perez MD Work Phone: [facility] 02-14-2025 09:42-0400 Diastolic blood pressure 66 mm[Hg] Jun Perez MD Work Phone: [facility] 02-14-2025 09:42-0400 Heart rate 64 /min Jun Perez MD Work Phone: [facility] 02-14-2025 09:42-0400 Systolic blood pressure 110 mm[Hg] Jun Perez MD Work Phone: [facility] 12-27-2024 11:39-0500 Body height 185.42 cm Jun Perez MD Work Phone: [facility] 12-27-2024 11:39-0500 Body mass index (BMI) [Ratio] 35.9 kg/m2 Jun Perez MD Work Phone: [facility] 12-27-2024 11:39-0500 Body temperature 97.5 [degF] Jun Perez MD Work Phone: [facility] 12-27-2024 11:39-0500 Body weight 123.54 kg Jun Perez MD Work Phone: [facility] 12-27-2024 11:39-0500 Diastolic blood pressure 78 mm[Hg] Jun Perez MD Work Phone: [facility] 12-27-2024 11:39-0500 Heart rate 61 /min Jun Perez MD Work Phone: [facility] 12-27-2024 11:39-0500 Respiratory rate 18 /min Jun Perez MD Work Phone: [facility] 12-27-2024 11:39-0500 SaO2% (BldA) [Mass fraction] 97 % Jun Perez MD Work Phone: [facility] 12-27-2024 11:39-0500 Systolic blood pressure 145 mm[Hg] Jun Perez MD Work Phone: [facility] 12-08-2024 08:44-0500 Body height 188 cm Bony Brown DPM Work Phone: [facility] 12-08-2024 08:44-0500 Body mass index (BMI) [Ratio] 34.02 kg/m2 Bony Brown DPM Work Phone: [facility] 12-08-2024 08:44-0500 Body weight 120.2 kg Bony Brown DPM Work Phone: [facility] [facility] 12-08-2024 08:44-0500 Respiratory rate 18 /min Bony Brown DPM Work Phone: [facility] 11-22-2024 08:56-0500 Body height 188 cm Bony Brown DPM Work Phone: [facility] 11-22-2024 08:56-0500 Body mass index (BMI) [Ratio] 34.02 kg/m2 Bony Brown DPM Work Phone: [facility] 11-22-2024 08:56-0500 Body weight 120.2 kg Bony Brown DPM Work Phone: [facility] 11-22-2024 08:56-0500 Respiratory rate 16 /min Bony Brown DPM Work Phone: [facility] 10-19-2024 10:10-0500 Body height 185.42 cm Jun Perez MD Work Phone: [facility] 10-19-2024 10:10-0500 Body mass index (BMI) [Ratio] 35.3 kg/m2 Jun Perez MD Work Phone: [facility] 10-19-2024 10:10-0500 Body weight 121.56 kg Jun Perez MD Work Phone: [facility] 10-19-2024 10:10-0500 Diastolic blood pressure 68 mm[Hg] Jun Perez MD Work Phone: [facility] 10-19-2024 10:10-0500 Heart rate 60 /min Jun Perez MD Work Phone: [facility] 10-19-2024 10:10-0500 Respiratory rate 18 /min Jun Perez MD Work Phone: [facility] 10-19-2024 10:10-0500 SaO2% (BldA) [Mass fraction] 94 % Jun Perez MD Work Phone: [facility] 10-19-2024 10:10-0500 Systolic blood pressure 126 mm[Hg] Jun Perez MD Work Phone: [facility] 10-18-2024 13:04-0500 Body height 185.42 cm Jun Perez MD Work Phone: [facility] 10-18-2024 13:04-0500 Body mass index (BMI) [Ratio] 35.1 kg/m2 Jun Perez MD Work Phone: [facility] 10-18-2024 13:04-0500 Body weight 120.65 kg Jun Perez MD Work Phone: [facility] 10-18-2024 13:04-0500 Diastolic blood pressure 67 mm[Hg] Jun Perez MD Work Phone: [facility] 10-18-2024 13:04-0500 Heart rate 66 /min Jun Perez MD Work Phone: [facility] 10-18-2024 13:04-0500 Systolic blood pressure 113 mm[Hg] Jun Perez MD Work Phone: [facility] 09-29-2024 09:42-0500 Body mass index (BMI) [Ratio] 35.7 kg/m2 [facility] 09-29-2024 09:29-0500 Body height 185.42 cm [facility] 09-29-2024 09:29-0500 Body weight 122.95 kg [facility] 09-29-2024 09:29-0500 Diastolic blood pressure 62 mm[Hg] [facility] 09-29-2024 09:29-0500 Heart rate 61 /min [facility] 09-29-2024 09:29-0500 Respiratory rate 18 /min [facility] 09-29-2024 09:29-0500 SaO2% (BldA) [Mass fraction] 95 % [facility] 09-29-2024 09:29-0500 Systolic blood pressure 130 mm[Hg] [facility] 08-17-2024 12:41-0400 Body height 188 cm Sb Devon DO Work Phone: [facility] 08-17-2024 12:41-0400 Body mass index (BMI) [Ratio] 34.02 kg/m2 Sb Devon DO Work Phone: [facility] 08-17-2024 12:41-0400 Body weight 120.2 kg Sb Devon DO Work Phone: [facility] 08-17-2024 12:41-0400 Diastolic blood pressure 84 mm[Hg] Sb Devon DO Work Phone: [facility] 08-17-2024 12:41-0400 Heart rate 52 /min Sb Devon DO Work Phone: [facility] 08-17-2024 12:41-0400 SaO2% (BldA) [Mass fraction] 97 % Sb Devon DO Work Phone: [facility] 08-17-2024 12:41-0400 Systolic blood pressure 130 mm[Hg] Sb Osorio DO Work Phone: [facility] 08-08-2024 14:39-0400 Body height 185.42 cm [facility] 08-08-2024 14:39-0400 Body mass index (BMI) [Ratio] 36.3 kg/m2 [facility] 08-08-2024 14:39-0400 Body weight 124.73 kg [facility] 08-08-2024 14:39-0400 Diastolic blood pressure 70 mm[Hg] [facility] 08-08-2024 14:39-0400 Heart rate 57 /min [facility] 08-08-2024 14:39-0400 Systolic blood pressure 132 mm[Hg] [facility] 07-04-2024 11:02-0400 Body height 185.42 cm [facility] 07-04-2024 11:02-0400 Body mass index (BMI) [Ratio] 36.9 kg/m2 [facility] 07-04-2024 11:02-0400 Body temperature 96.7 [degF] [facility] 07-04-2024 11:02-0400 Body weight 127 kg [facility] 07-04-2024 11:02-0400 Diastolic blood pressure 72 mm[Hg] [facility] 07-04-2024 11:02-0400 Heart rate 60 /min [facility] 07-04-2024 11:02-0400 Respiratory rate 16 /min [facility] 07-04-2024 11:02-0400 SaO2% (BldA) [Mass fraction] 96 % [facility] 07-04-2024 11:02-0400 Systolic blood pressure 142 mm[Hg] [facility] 04-27-2024 11:56-0400 Body height 185.42 cm [facility] 04-27-2024 11:56-0400 Body mass index (BMI) [Ratio] 36.6 kg/m2 [facility] 04-27-2024 11:56-0400 Body weight 126.09 kg [facility] 04-27-2024 11:56-0400 Diastolic blood pressure 68 mm[Hg] [facility] 04-27-2024 11:56-0400 Heart rate 64 /min [facility] 04-27-2024 11:56-0400 Systolic blood pressure 118 mm[Hg] [facility] 04-12-2024 09:55-0400 Body height 185.42 cm MD Jun Perez Work Phone: [facility] 04-12-2024 09:55-0400 Body mass index (BMI) [Ratio] 36.6 kg/m2 MD Jun Perez Work Phone: [facility] 04-12-2024 09:55-0400 Body weight 126.09 kg MD Jun Perez Work Phone: [facility] 04-12-2024 09:55-0400 Diastolic blood pressure 74 mm[Hg] MD Jun Perez Work Phone: [facility] 04-12-2024 09:55-0400 Heart rate 59 /min MD Jun Perez Work Phone: [facility] 04-12-2024 09:55-0400 Systolic blood pressure 133 mm[Hg] MD Jun Perez Work Phone: [facility] 03-24-2024 10:34-0400 Body height 185.42 cm MD Jun Perez Work Phone: [facility] 03-24-2024 10:34-0400 Body mass index (BMI) [Ratio] 36.5 kg/m2 MD Jun Perez Work Phone: [facility] 03-24-2024 10:34-0400 Body weight 125.64 kg MD Jun Perez Work Phone: [facility] 03-24-2024 10:34-0400 Diastolic blood pressure 66 mm[Hg] MD Jun Perez Work Phone: [facility] 03-24-2024 10:34-0400 Heart rate 83 /min MD Jun Perez Work Phone: [facility] 03-24-2024 10:34-0400 Respiratory rate 18 /min MD Jun Perez Work Phone: [facility] 03-24-2024 10:34-0400 SaO2% (BldA) [Mass fraction] 97 % MD Jun Perez Work Phone: [facility] 03-24-2024 10:34-0400 Systolic blood pressure 145 mm[Hg] MD Jun Perez Work Phone: [facility] 03-22-2024 11:20-0400 Body height 185.42 cm MD Jun Perez Work Phone: [facility] 03-22-2024 11:20-0400 Body mass index (BMI) [Ratio] 36.3 kg/m2 MD Jun Perez Work Phone: [facility] 03-22-2024 11:20-0400 Body weight 124.73 kg MD Jun Perez Work Phone: [facility] 03-22-2024 11:20-0400 Diastolic blood pressure 72 mm[Hg] MD Jun Perez Work Phone: [facility] 03-22-2024 11:20-0400 Heart rate 53 /min MD Jun Perez Work Phone: [facility] 03-22-2024 11:20-0400 Respiratory rate 18 /min MD Jun Perez Work Phone: [facility] 03-22-2024 11:20-0400 SaO2% (BldA) [Mass fraction] 98 % MD Jun Perez Work Phone: [facility] 03-22-2024 11:20-0400 Systolic blood pressure 140 mm[Hg] MD Jun Perez Work Phone: [facility] 01-11-2024 11:46-0500 Body height 185.42 cm MD Jun Perez Work Phone: [facility] 01-11-2024 11:46-0500 Body mass index (BMI) [Ratio] 36.3 kg/m2 MD Jun Perez Work Phone: [facility] 01-11-2024 11:46-0500 Body weight 125.19 kg MD Jun Perez Work Phone: [facility] 01-11-2024 11:46-0500 Diastolic blood pressure 78 mm[Hg] MD Jun Perez Work Phone: [facility] 01-11-2024 11:46-0500 Heart rate 68 /min MD Jun Perez Work Phone: [phone] [place] [address] 01-11-2024 11:46-0500 Respiratory rate 18 /min MD Jun Perez Work Phone: [facility] 01-11-2024 11:46-0500 SaO2% (BldA) [Mass fraction] 98 % MD Jun Perez Work Phone: [facility] 01-11-2024 11:46-0500 Systolic blood pressure 142 mm[Hg] MD Jun Perez Work Phone: [facility] 01-05-2024 11:58-0500 Body height 185.42 cm MD Jun Perez Work Phone: [facility] 01-05-2024 11:58-0500 Body mass index (BMI) [Ratio] 36.6 kg/m2 MD Jun Perez Work Phone: [facility] 01-05-2024 11:58-0500 Body temperature 96.9 [degF] MD Jun Perez Work Phone: [facility] 01-05-2024 11:58-0500 Body weight 125.7 kg MD Jun Perez Work Phone: [facility] 01-05-2024 11:58-0500 Diastolic blood pressure 77 mm[Hg] MD Jun Perez Work Phone: [facility] 01-05-2024 11:58-0500 Heart rate 55 /min MD Jun Perez Work Phone: [facility] 01-05-2024 11:58-0500 Respiratory rate 18 /min MD Jun Perez Work Phone: [facility] 01-05-2024 11:58-0500 SaO2% (BldA) [Mass fraction] 98 % MD Jun Perez Work Phone: [facility] 01-05-2024 11:58-0500 Systolic blood pressure 131 mm[Hg] MD Jun Perez Work Phone: [facility] 12-31-2023 11:36-0500 Body height 185.42 cm MD Jun Perez Work Phone: [facility] 12-31-2023 11:36-0500 Body mass index (BMI) [Ratio] 36.4 kg/m2 MD Jun Perez Work Phone: [facility] 12-31-2023 11:36-0500 Body weight 125.24 kg MD Jun Perez Work Phone: [facility] 12-31-2023 11:36-0500 Diastolic blood pressure 70 mm[Hg] MD Jun Perez Work Phone: [facility] 12-31-2023 11:36-0500 Heart rate 60 /min MD Jun Perez Work Phone: [facility] 12-31-2023 11:36-0500 Systolic blood pressure 131 mm[Hg] MD Jun Perez Work Phone: [facility] 12-22-2023 10:00-0500 Body height 185.42 cm Garrettstephen Good Other [employer] [facility] [employer] Other 12-22-2023 10:00-0500 Body mass index (BMI) [Ratio] 36.75 kg/m2 Tondra Mapus Other [employer] Other 12-22-2023 10:00-0500 Body weight 126.37 kg Tondra Mapus Other [employer] Other 12-22-2023 10:00-0500 Diastolic blood pressure 76 mm[Hg] Tondra Mapus Other [employer] Other 12-22-2023 10:00-0500 Respiratory rate 18 /min Tondra Mapus Other [employer] Other 12-22-2023 10:00-0500 SaO2% (BldA) [Mass fraction] 98 % Tondra Mapus Other [employer] Other 12-22-2023 10:00-0500 Systolic blood pressure 137 mm[Hg] Tondra Mapus Other [employer] Other 12-14-2023 11:20-0500 Body height 185.42 cm Jose Koromia Other [facility] 12-14-2023 11:20-0500 Body mass index (BMI) [Ratio] 36.94 kg/m2 Jose Koromia Other [facility] [employer] Other 12-14-2023 11:20-0500 Body weight 127.01 kg Jose Koromia Other [facility] [employer] Other 12-14-2023 11:20-0500 Body weight 127 kg MD Jun Perez Work Phone: [facility] 12-14-2023 11:20-0500 Diastolic blood pressure 84 mm[Hg] Jose Koromia Other [facility] 12-14-2023 11:20-0500 Respiratory rate 18 /min Jose Koromia Other [facility] [employer] Other 12-14-2023 11:20-0500 SaO2% (BldA) [Mass fraction] 98 % Jose Koromia Other [employer] Other 12-14-2023 11:20-0500 Systolic blood pressure 156 mm[Hg] Jose Koromia Other [facility] 11-18-2023 11:20-0500 Body height 185.42 cm Jose Koromia Other [facility] 11-18-2023 11:20-0500 Body mass index (BMI) [Ratio] 36.15 kg/m2 Jose Koromia Other [facility] [employer] Other 11-18-2023 11:20-0500 Body weight 124.29 kg Jose Adrianaomia Other [facility] [employer] Other 11-18-2023 11:20-0500 Body weight 124.28 kg MD Jun Perez Work Phone: [facility] 11-18-2023 11:20-0500 Diastolic blood pressure 70 mm[Hg] Jose Koromia Other [facility] 11-18-2023 11:20-0500 Respiratory rate 18 /min Jose Koromia Other [facility] [employer] Other 11-18-2023 11:20-0500 SaO2% (BldA) [Mass fraction] 96 % Jose Koromia Other [facility] [employer] Other 11-18-2023 11:20-0500 Systolic blood pressure 132 mm[Hg] Jose Koromia Other [facility] 10-31-2023 12:15-0500 Body height 185.42 cm MD Jun Perez Work Phone: [facility] 10-31-2023 12:15-0500 Body weight 127 kg MD Jun Perez Work Phone: [facility] 10-31-2023 12:15-0500 Diastolic blood pressure 71 mm[Hg] MD Jun Perez Work Phone: [facility] 10-31-2023 12:15-0500 Systolic blood pressure 130 mm[Hg] MD Jun Perez Work Phone: [facility] 10-21-2023 12:17-0500 Diastolic blood pressure 78 mm[Hg] MD Jun Perez Work Phone: [facility] 10-21-2023 12:17-0500 Heart rate 54 /min MD Jun Perez Work Phone: [facility] 10-21-2023 12:17-0500 Respiratory rate 16 /min MD Jun Perez Work Phone: [facility] 10-21-2023 12:17-0500 SaO2% (BldA) [Mass fraction] 98 % MD Jun Perez Work Phone: [facility] 10-21-2023 12:17-0500 Systolic blood pressure 144 mm[Hg] MD Jun Perez Work Phone: [facility] 10-21-2023 10:35-0500 Body height 187.96 cm MD Jun Perez Work Phone: [facility] 10-21-2023 10:35-0500 Body temperature 97.8 [degF] MD Jun Perez Work Phone: [facility] 10-21-2023 10:35-0500 Body weight 121.1 kg MD Jun Perez Work Phone: [facility] 10-15-2023 11:23-0500 Body height 188 cm Britney Yu MD Work Phone: [facility] 10-15-2023 11:23-0500 Body mass index (BMI) [Ratio] 35.31 kg/m2 Britney Yu MD Work Phone: [facility] 10-15-2023 11:23-0500 Body weight 124.74 kg Britney Yu MD Work Phone: [facility] 10-15-2023 11:23-0500 Diastolic blood pressure 82 mm[Hg] Britney Yu MD Work Phone: [facility] 10-15-2023 11:23-0500 Heart rate 64 /min Britney Yu MD Work Phone: [facility] 10-15-2023 11:23-0500 Systolic blood pressure 130 mm[Hg] Britney Yu MD Work Phone: [facility] 09-28-2023 10:32-0500 Body height 188 cm Britney Yu MD Work Phone: [facility] 09-28-2023 10:32-0500 Body mass index (BMI) [Ratio] 36.21 kg/m2 Britney Yu MD Work Phone: [facility] 09-28-2023 10:32-0500 Body weight 127.91 kg Britney Yu MD Work Phone: [facility] 09-28-2023 10:32-0500 Diastolic blood pressure 80 mm[Hg] Britney Yu MD Work Phone: [facility] 09-28-2023 10:32-0500 Heart rate 64 /min Britney Yu MD Work Phone: [facility] 09-28-2023 10:32-0500 Systolic blood pressure 138 mm[Hg] Britney Yu MD Work Phone: [facility] 09-17-2023 09:45-0400 Body height 185.42 cm Duncan Parham Other [employer] Other 09-17-2023 09:45-0400 Body mass index (BMI) [Ratio] 37.33 kg/m2 Tondra Mapus Other [employer] Other 09-17-2023 09:45-0400 Body weight 128.37 kg Tondra Mapus Other [employer] Other 09-17-2023 09:45-0400 Diastolic blood pressure 68 mm[Hg] Tondra Mapus Other [employer] Other 09-17-2023 09:45-0400 Respiratory rate 18 /min Tondra Mapus Other [employer] Other 09-17-2023 09:45-0400 SaO2% (BldA) [Mass fraction] 96 % Tondra Mapus Other [employer] Other 09-17-2023 09:45-0400 Systolic blood pressure 128 mm[Hg] Tondra Mapus Other [employer] Other 06-08-2023 11:25-0400 Body height 187.96 cm Jun Perez Work Phone: [employer] Work Phone: 06-08-2023 11:25-0400 Body mass index (BMI) [Ratio] 36.72 kg/m2 Jun Perez Work Phone: [employer] Work Phone: 06-08-2023 11:25-0400 Body surface area Derived from formula 2.53 m2 Jun Perez Work Phone: [employer] [facility] [employer] Work Phone: 06-08-2023 11:25-0400 Body weight 129.73 kg Jun Perez Work Phone: [facility] DO Work Phone: 06-08-2023 11:25-0400 Diastolic blood pressure 68 mm[Hg] Jun Perez Work Phone: [facility] DO Work Phone: 06-08-2023 11:25-0400 Heart rate 56 /min Jun Perez Work Phone: [facility] DO Work Phone: 06-08-2023 11:25-0400 Systolic blood pressure 136 mm[Hg] Jun Perez Work Phone: [facility] DO Work Phone: 05-14-2023 10:45-0400 Body height 187.96 cm Jun Perez Work Phone: [facility] DO Work Phone: 05-14-2023 10:45-0400 Body mass index (BMI) [Ratio] 36.85 kg/m2 Jun Perez Work Phone: [facility] DO Work Phone: 05-14-2023 10:45-0400 Body surface area Derived from formula 2.53 m2 Jun Perez Work Phone: [facility] DO Work Phone: 05-14-2023 10:45-0400 Body weight 130.18 kg Jun Perez Work Phone: [facility] DO Work Phone: 05-14-2023 10:45-0400 Diastolic blood pressure 80 mm[Hg] Jun Perez Work Phone: [facility] DO Work Phone: 05-14-2023 10:45-0400 Heart rate 56 /min Jun Perez Work Phone: [facility] [employer] [address] DO Work Phone: 05-14-2023 10:45-0400 Systolic blood pressure 128 mm[Hg] Jun Perez Work Phone: [facility] [employer] [address] DO Work Phone: 04-17-2023 09:15-0400 Body height 185.42 cm Jun Perez Other [employer] Other 04-17-2023 09:15-0400 Body mass index (BMI) [Ratio] 38.52 kg/m2 Jun Perez Other [employer] Other 04-17-2023 09:15-0400 Body weight 132.45 kg Jun Perez Other [employer] Other 04-17-2023 09:15-0400 Diastolic blood pressure 77 mm[Hg] Jun Perez Other [employer] Other 04-17-2023 09:15-0400 Systolic blood pressure 146 mm[Hg] Jun Perez Other [employer] Other 04-16-2023 11:40-0400 Body height 185.42 cm Tj Mayo Other [employer] Other 04-16-2023 11:40-0400 Body mass index (BMI) [Ratio] 39.14 kg/m2 Tj Mayo Other [employer] Other 04-16-2023 11:40-0400 Body temperature 97.8 [degF] Tj Mayo Other [employer] Other 04-16-2023 11:40-0400 Body weight 134.58 kg Tj Mayo Other [employer] Other 04-16-2023 11:40-0400 Diastolic blood pressure 80 mm[Hg] Tj Mayo Other [employer] Other 04-16-2023 11:40-0400 Respiratory rate 18 /min Tj Mayo Other [employer] Other 04-16-2023 11:40-0400 SaO2% (BldA) [Mass fraction] 97 % Tj Mayo Other [employer] Other 04-16-2023 11:40-0400 Systolic blood pressure 144 mm[Hg] Tj Mayo Other [employer] Other 04-10-2023 15:44-0400 Body height 187.96 cm Jun Perez [facility] Work Phone: 04-10-2023 15:44-0400 Body mass index (BMI) [Ratio] 25.17 kg/m2 Jun Perez Work Phone: [facility] [employer] [address] DO Work Phone: 04-10-2023 15:44-0400 Body surface area Derived from formula 2.15 m2 Jun Perez Work Phone: [facility] [employer] [address] DO Work Phone: 04-10-2023 15:44-0400 Body weight 88.91 kg Jun Perez Work Phone: [facility] [employer] [address] DO Work Phone: 04-10-2023 15:44-0400 Diastolic blood pressure 72 mm[Hg] Jun Perez Work Phone: [facility] [employer] [address] DO Work Phone: 04-10-2023 15:44-0400 Heart rate 64 /min Jun Perez Work Phone: [facility] [employer] [address] DO Work Phone: 04-10-2023 15:44-0400 Systolic blood pressure 126 mm[Hg] Jun Perez Work Phone: [facility] [employer] [address] DO Work Phone: 02-17-2023 12:15-0400 Body height 185.42 cm Jun Perez Other [employer] Other 02-17-2023 12:15-0400 Body mass index (BMI) [Ratio] 38.39 kg/m2 Jun Perez Other [employer] Other 02-17-2023 12:15-0400 Body temperature 98.6 [degF] Jun Perez Other [employer] Other 02-17-2023 12:15-0400 Body weight 132 kg Jun Perez Other [employer] Other 02-17-2023 12:15-0400 Diastolic blood pressure 82 mm[Hg] Jun Perez Other [employer] Other 02-17-2023 12:15-0400 SaO2% (BldA) [Mass fraction] 97 % Jun Perez Other [employer] Other 02-17-2023 12:15-0400 Systolic blood pressure 122 mm[Hg] Jun Perez Other [employer] Other 02-04-2023 16:40-0400 Body height 185.42 cm Tj Mayo Other [employer] Other 02-04-2023 16:40-0400 Body mass index (BMI) [Ratio] 38.28 kg/m2 Tj Mayo Other [employer] Other 02-04-2023 16:40-0400 Body weight 131.63 kg Tj Mayo Other [employer] Other 02-04-2023 16:40-0400 Diastolic blood pressure 96 mm[Hg] Tj Mayo Other [employer] Other 02-04-2023 16:40-0400 Respiratory rate 18 /min Tj Mayo Other [employer] Other 02-04-2023 16:40-0400 SaO2% (BldA) [Mass fraction] 98 % Tj Mayo Other [employer] Other 02-04-2023 16:40-0400 Systolic blood pressure 164 mm[Hg] Tj Mayo Other [employer] Other 01-23-2023 09:16-0500 Body height 187.96 cm Jun Perez Work Phone: [facility] [employer] [address] DO Work Phone: 01-23-2023 09:16-0500 Body mass index (BMI) [Ratio] 37.75 kg/m2 Jun Perez Work Phone: [facility] [facility] [address] Work Phone: 01-23-2023 09:16-0500 Body surface area Derived from formula 2.56 m2 Jun Perez Work Phone: [facility] DO Work Phone: 01-23-2023 09:16-0500 Body weight 133.36 kg Jun Perez Work Phone: [facility] DO Work Phone: 01-23-2023 09:16-0500 Diastolic blood pressure 82 mm[Hg] Jun Perez Work Phone: [facility] DO Work Phone: 01-23-2023 09:16-0500 Heart rate 63 /min Jun Perez Work Phone: [facility] DO Work Phone: 01-23-2023 09:16-0500 Systolic blood pressure 136 mm[Hg] Jun Perez Work Phone: [facility] DO Work Phone: 12-26-2022 10:52-0500 Diastolic blood pressure 80 mm[Hg] Jun Perez Work Phone: [facility] DO Work Phone: 12-26-2022 10:52-0500 Systolic blood pressure 148 mm[Hg] Jun Perez Work Phone: [facility] DO Work Phone: 12-26-2022 10:51-0500 Body height 187.96 cm uJn Perez Work Phone: [facility] DO Work Phone: 12-26-2022 10:51-0500 Body mass index (BMI) [Ratio] 37.75 kg/m2 Jun Perez Work Phone: [facility] DO Work Phone: 12-26-2022 10:51-0500 Body surface area Derived from formula 2.56 m2 Jun Perez Work [facility]: [facility] [employer] [facility] [employer] Work Phone: 12-26-2022 10:51-0500 Body weight 133.36 kg Jun Perez Work Phone: [facility] [employer] [address] DO Work Phone: 12-26-2022 10:51-0500 Diastolic blood pressure 80 mm[Hg] Jun Perez Work Phone: [facility] [employer] [facility] Work Phone: 12-26-2022 10:51-0500 Heart rate 61 /min Jun Perez Work Phone[facility] [employer] [facility] Work Phone: 12-26-2022 10:51-0500 Systolic blood pressure 146 mm[Hg] Jun Perez Work Phone: [facility] [employer] [address] DO Work Phone: 12-01-2022 16:00-0500 Body height 185.42 cm Jun Perez Other [employer] Other 12-01-2022 16:00-0500 Body mass index (BMI) [Ratio] 38.92 kg/m2 Jun Perez Other [employer] Other 12-01-2022 16:00-0500 Body weight 133.81 kg Jun Perez Other [employer] Other 12-01-2022 16:00-0500 Diastolic blood pressure 80 mm[Hg] Jun Perez Other [employer] Other 12-01-2022 16:00-0500 SaO2% (BldA) [Mass fraction] 98 % Jun Perez Other [employer] Other 12-01-2022 16:00-0500 Systolic blood pressure 140 mm[Hg] Jun Perez Other [employer] Other 11-20-2022 10:30-0500 Body height 187.96 cm Edie Morse Other [employer] Other 11-20-2022 10:30-0500 Body mass index (BMI) [Ratio] 37.61 kg/m2 Edie Morse Other [employer] Other 11-20-2022 10:30-0500 Body weight 132.9 kg Edie Morse Other [employer] Other 11-20-2022 10:30-0500 Diastolic blood pressure 79 mm[Hg] Edie Morse Other [employer] Other 11-20-2022 10:30-0500 Respiratory rate 20 /min Edie Morse Other [employer] Other 11-20-2022 10:30-0500 SaO2% (BldA) [Mass fraction] 98 % Edie Morse Other [employer] Other 11-20-2022 10:30-0500 Systolic blood pressure 146 mm[Hg] Edie Morse Other [employer] Other 09-08-2022 10:15-0400 Body height 187.96 cm Phyllis Reyes Other [employer] Other 09-08-2022 10:15-0400 Body mass index (BMI) [Ratio] 36.59 kg/m2 Phyllis Amy Other [employer] Other 09-08-2022 10:15-0400 Body temperature 97.6 [degF] Phyllis Amy Other [employer] Other 09-08-2022 10:15-0400 Body weight 129.28 kg Phyllis Amy Other [employer] Other 09-08-2022 10:15-0400 Diastolic blood pressure 59 mm[Hg] Phyllis Amy Other [employer] Other 09-08-2022 10:15-0400 Respiratory rate 18 /min Phyllis Amy Other [employer] Other 09-08-2022 10:15-0400 SaO2% (BldA) [Mass fraction] 97 % Phyllis Amy Other [employer] Other 09-08-2022 10:15-0400 Systolic blood pressure 112 mm[Hg] Phyllis Amy Other [employer] Other 05-25-2022 13:35-0400 Body height 187.96 cm Phyllis Amy Other [employer] Other 05-25-2022 13:35-0400 Body mass index (BMI) [Ratio] 37.23 kg/m2 Phyllis Amy Other [employer] Other 05-25-2022 13:35-0400 Body temperature 97.4 [degF] Phyllis Amy Other [employer] Other 05-25-2022 13:35-0400 Body weight 131.54 kg Phyllis Reyes Other [employer] Other 05-25-2022 13:35-0400 Diastolic blood pressure 82 mm[Hg] Phyllis Reyes Other [employer] Other 05-25-2022 13:35-0400 Respiratory rate 18 /min Phyllis Reyes Other [employer] Other 05-25-2022 13:35-0400 SaO2% (BldA) [Mass fraction] 96 % Phyllis Reyes Other [employer] Other 05-25-2022 13:35-0400 Systolic blood pressure 142 mm[Hg] Phyllis Reyes Other [employer] Other 04-30-2022 11:00-0400 Body height Mary Bryson Other [employer] Other 04-30-2022 11:00-0400 Body mass index (BMI) [Ratio] 37.23 kg/m2 Mary Bryson Other [employer] Other 04-30-2022 11:00-0400 Body weight 131.54 kg Mary Bryson Other [employer] Other Encounters Encounter Date Encounter Type Care Provider Facility Start: 07-07-2025 End: 07-07-2025 ambulatory Jun Perez MD Work Phone: [facility] Work Phone: Start: 07-07-2025 End: 07-07-2025 Patient encounter procedure Jun Perez MD -[facility] Work Phone: Start: 06-22-2025 End: 06-22-2025 ambulatory Jun Perez MD Work Phone: [facility] Work Phone: Start: 06-22-2025 End: 06-22-2025 Patient encounter procedure Mich Childs DO -[facility] Work Phone: Start: 06-14-2025 End: 06-14-2025 ambulatory Jun Perez MD Work Phone: [facility] Work Phone: Start: 06-14-2025 End: 06-14-2025 Patient encounter procedure Mich Childs DO -[facility] Work Phone: Start: 06-12-2025 End: 06-12-2025 ambulatory Jun Perez MD Work Phone: [facility] Work Phone: Start: 06-12-2025 End: 06-12-2025 Patient encounter procedure Humberto Valerio DO -[facility] [place] Work Phone: Start: 06-07-2025 End: 06-07-2025 ambulatory Jun Perez MD Work Phone: [facility] Work Phone: Start: 06-07-2025 End: 06-07-2025 Patient encounter procedure Mich Childs DO -[facility] Work Phone: Start: 05-31-2025 End: 05-31-2025 ambulatory Jun Perez MD Work Phone: 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 Work Phone: Start: 03-30-2025 End: 03-30-2025 Patient encounter procedure [facility] Work Phone: Start: 03-28-2025 Non-patient / Non-visit [facility] [place] Work Phone: Start: 03-27-2025 Non-patient / Non-visit [facility] [place] Work Phone: Start: 02-16-2025 End: 02-16-2025 Bamboo flowsheet Bony Gibson DPM Work Phone: [facility] Start: 02-16-2025 End: 02-16-2025 Bamboo flowsheet Bony Gibson DPM Work Phone: [facility] Start: 02-16-2025 End: 02-16-2025 Patient encounter procedure Bony Gibson DPM Work Phone: [facility] Comment on above: Diabetes mellitus du e to underlying condition with diabetic polyneuropathy, 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 Work Phone: Start: 02-14-2025 End: 02-14-2025 Patient encounter procedure Jun Perez MD Work Phone: [facility] Work Phone: Start: 12-27-2024 End: 12-27-2024 ambulatory Jun Perez MD Work Phone: [facility] Work Phone: Start: 12-27-2024 End: 12-27-2024 Patient encounter procedure Jun Perez MD Work Phone: [facility] Work Phone: Start: 12-26-2024 Non-patient / Non-visit Jun Perez MD Work Phone: [facility] [place] Work Phone: Start: 12-08-2024 End: 12-08-2024 Bamboo flowsheet Bony Gibson DPM Work Phone: [facility] Start: 12-08-2024 End: 12-08-2024 Bamboo flowsheet Bony Gibson DPM Work Phone: [facility] Start: 12-08-2024 End: 12-08-2024 Office outpatient visit 15 minutes Bony Gibson DPM Work Phone: [facility] Comment on above: Abscess of toe, righ t (Primary Dx); Diabetes mellitus due to underlying condition with diabetic polyneuropathy, unspecified whether detention insulin use (CMS/HCC); Pain due to onychomycosis of toenails of both feet Start: 12-08-2024 End: 12-08-2024 ambulatory BONY GIBSON Not Available Start: 11-29-2024 End: 11-29-2024 ambulatory Jun Perez MD Work Phone: [facility] Work Phone: Start: 11-29-2024 End: 11-29-2024 Discharged Recurring Jun Perez MD Work Phone: [facility] [place] Start: 11-29-2024 Registered Recurring Jun joyce MD Work Phone: [facility] [place] Start: 11-22-2024 End: 11-22-2024 Bamboo flowsheet Bony [...] underlying condition with diabetic polyneuropathy, 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 Work Phone: Start: 09-29-2024 End: 09-29-2024 Patient encounter procedure [facility] Work Phone: Start: 09-28-2024 Non-patient / Non-visit [facility] [place] Work Phone: Start: 08-17-2024 End: 08-17-2024 Bamboo flowsheet Sb Osorio DO Work Phone: [employer] [facility] Start: 08-17-2024 End: 08-17-2024 Bamboo flowsheet Sb Osorio DO Work Phone: [employer] [facility] Start: 08-17-2024 End: 08-17-2024 Office outpatient new 45 minutes Sb Osorio DO Work Phone: [employer] [facility] Comment on above: EVY (obstructive sle ep apnea); Hypersomnia; Snoring; Class 2 obesity due to excess calories with body mass index (BMI) of 36.0 to 36.9 in adult, unspecified whether serious comorbidity present Start: 08-17-2024 End: 08-17-2024 ambulatory SB OSORIO Not Available Start: 08-08-2024 End: 08-08-[address] [facility] Work Phone: Start: 08-08-2024 End: 08-08-2024 Patient encounter procedure [facility] Work Phone: Start: 07-04-2024 End: 07-04-[address] [facility] Work Phone: Start: 07-04-2024 End: 07-04-2024 Patient encounter procedure [facility] Work Phone: Start: 06-29-2024 Non-patient / Non-visit [facility] [place] Work Phone: Start: 04-27-2024 End: 04-27-[address] [facility] Work Phone: Start: 04-27-2024 End: 04-27-2024 Patient encounter procedure [facility] Work Phone: Start: 04-20-2024 Non-patient / Non-visit [facility] Card[facility] Work Phone: Start: 04-12-2024 End: 04-12-2024 ambulatory MD Jun Perez Work Phone: [facility] Work Phone: Start: 04-12-2024 End: 04-12-2024 Patient encounter procedure MD Jun Perez Work Phone: [facility] Work Phone: Start: 03-24-2024 End: 03-24-2024 ambulatory MD Jun Perez Work Phone: [facility] Work Phone: Start: 03-24-2024 End: 03-24-2024 Patient encounter procedure MD Jun Perez Work Phone: [facility] Work Phone: Start: 03-22-2024 End: 03-22-2024 ambulatory MD Jun Perez Work Phone: [facility] Work Phone: Start: 03-22-2024 End: 03-22-2024 Patient encounter procedure MD Jun Perez Work Phone: [facility] Cardiology Work Phone: Start: 03-07-2024 End: 03-07-2024 ambulatory MD Jun Perez Work Phone: [facility] Work Phone: Start: 03-07-2024 End: 03-07-2024 Patient encounter procedure MD Jun Perez Work Phone: [facility]-Electrodiagnostics Work Phone: Start: 03-07-2024 Non-patient / Non-visit [facility] Work Phone: Start: 01-11-2024 End: 01-11-2024 ambulatory MD Jun Perez Work Phone: [facility] Work Phone: Start: 01-11-2024 End: 01-11-2024 Patient encounter procedure MD Jun Perez Work Phone: [facility] Work Phone: Start: 01-08-2024 Non-patient / Non-visit MD Xochitl Perez Work Phone: [facility] [place] Work Phone: Start: 01-05-2024 End: 01-05-2024 ambulatory MD Jun Perez Work Phone: [facility] Work Phone: Start: 01-05-2024 End: 01-05-2024 Patient encounter procedure MD Jun Perez Work Phone: [facility] Work Phone: Start: 01-04-2024 Non-patient / Non-visit MD Xochitl Perez Work Phone: [facility] Work Phone: Start: 12-31-2023 End: 12-31-2023 ambulatory MD Jun Perez Work Phone: [facility] Work Phone: Start: 12-31-2023 End: 12-31-2023 Patient encounter procedure MD Jun Perez Work Phone: [facility] Work Phone: Start: 12-22-2023 (DM) Diabetes Pabloa Dione [facility] Start: 12-22-2023 End: 12-22-2023 ambulatory MD Jun Perez Work Phone: [facility] [employer] Other Start: 12-22-2023 End: 12-22-2023 Discharged Recurring MD Jun Perez Work Phone: [facility]-Diabetes [facility] Work Phone: Start: 12-22-2023 Registered Recurring MD Jun Perez [facility] Work Phone: Start: 12-14-2023 End: 12-14-2023 ambulatory Jose Koromia Other [facility] [employer] Other Start: 12-14-2023 Office outpatient vi sit 25 minutes Jose Koromia [facility] Start: 12-14-2023 Telephone encounter Jose Yoonia [facility] Start: 12-14-2023 End: 12-14-2023 Patient encounter procedure MD Jun Perez Work Phone: [facility]- Start: 11-20-2023 Patient encounter procedure MD Jun Perez Work Phone: [facility]- Start: 11-19-2023 End: 11-19-2023 ambulatory Jun Perez Other [place] [employer] Other Start: 11-19-2023 Office outpatient vi sit 15 minutes Jun Perez [facility] Start: 11-19-2023 Telephone encounter Tj Huber [facility] [employer] Start: 11-18-2023 End: 11-18-2023 ambulatory Jose Koromia Other [facility] [employer] Other Start: 11-18-2023 Office outpatient ne w 45 minutes Jose Koromia [facility] Start: 11-18-2023 End: 11-18-2023 Patient encounter procedure MD Jun Perez Work Phone: [facility] Work Phone: Start: 11-05-2023 End: 11-05-2023 ambulatory MD Jun Perez Work Phone: [facility] Work Phone: Start: 11-05-2023 End: 11-05-2023 Patient encounter procedure MD Jun Perez Work Phone: [facility] [place] Work Phone: Start: 11-04-2023 End: 11-04-2023 ambulatory Duncan Parham Other [facility] [employer] Other Start: 11-04-2023 Telephone encounter Duncan Parham [facility] Start: 10-31-2023 End: 10-31-2023 Patient encounter procedure MD Jun Perez Work Phone: [facility] Work Phone: Start: 10-26-2023 End: 10-26-2023 ambulatory MD Jun Perez Work Phone: [facility] Work Phone: Start: 10-26-2023 End: 10-26-2023 Patient encounter procedure MD Jun Perez Work Phone: [facility] [place] Work Phone: Start: 10-21-2023 End: 10-21-2023 Admission to same day surgery center MD Jun Perez Work Phone: [facility] Work Phone: Start: 10-21-2023 End: 10-21-2023 ambulatory MD Jun Perez Work Phone: [facility] Work Phone: Start: 10-15-2023 End: 10-15-2023 Office outpatient visit 25 minutes Britney Yu MD Work Phone: [facility] Comment on above: CHF (congestive hear t failure), NYHA class II, acute on chronic, combined (CMS/HCC); Primary hypertension; Nonischemic cardiomyopathy (CMS/HCC); Medication course changed; Hypertensive heart and CKD, 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); Mixed hyperlipidemia; 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) Start: 10-15-2023 End: 10-15-2023 ambulatory [facility] Ambulatory Start: 09-28-2023 Telephone encounter Nancy MOSQUEDA Nephrology Start: 09-28-2023 End: 09-28-2023 Office outpatient visit 25 minutes Britney Yu MD Work Phone: [facility] Comment on above: Personality disorder ([facility]) (Primary Dx); Obesity, morbid ([facility]); Hypertensive heart and CKD, ESRD on dialysis ([facility]); CHF (congestive heart failure), NYHA class II, acute on chronic, combined ([facility]); Diabetes mellitus with kidney disease ([facility]); Mixed hyperlipidemia; Primary hypertension; Medication course changed Start: 09-28-2023 End: 09-28-2023 ambulatory [facility] [employer] Other Start: 09-25-2023 Patient encounter status Luis Yu MD Work Phone: [facility] Work Phone: Start: 09-17-2023 (DM) Diabetes [facility] Start: 09-17-2023 Telephone encounter Nancy MOSQUEDA Nephrology Start: 09-17-2023 End: 09-17-2023 ambulatory MD Jun Perez Work Phone: [place] [employer] Other Start: 09-17-2023 End: 09-17-2023 Patient encounter procedure MD Jun Perez Work Phone: [facility] [place] Work Phone: Start: 09-17-2023 Registered Recurring MD Jun Perez Work Phone: [facility] Work Phone: Start: 09-15-2023 End: 09-15-2023 ambulatory Rodney Victor Other [facility] [employer] Other Start: 09-15-2023 Telephone encounter Rondey AMAYA [facility] [employer] Start: 08-17-2023 End: 08-17-2023 ambulatory CAROLEE Abdon LISA Facility:[facility] Start: 06-08-2023 Office outpatient vi sit 25 minutes Jun Perez Work Phone: [facility] DO Work Phone: Start: 05-14-2023 Office outpatient vi sit 25 minutes Jun Perez Work Phone: [facility] DO Work Phone: Start: 05-14-[address] Jun Perez Facility: Start: 05-06-2023 End: 05-07-2023 ambulatory Ritchie eDsai Facility:[facility] Start: 05-01-2023 End: 05-01-2023 ambulatory Jun Perez Other [employer] Other Start: 05-01-2023 Telephone encounter Jun Perez [facility] Start: 04-27-2023 ambulatory Odilia Quinby Facility:[id number] Start: 04-17-2023 End: 04-17-2023 ambulatory Jun Perez Other [employer] Other Start: 04-17-2023 Office outpatient vi sit 25 minutes Jun Perez [facility] Start: 04-16-2023 End: 04-16-2023 ambulatory Tj Mayo Other [employer] Other Start: 04-16-2023 Office outpatient vi sit 25 minutes Tj Mayo [facility] [place] Start: 04-10-2023 Office outpatient vi sit 25 minutes Jun Perez Work Phone: [facility] DO Work Phone: Start: 04-10-2023 Patient encounter procedure Jun Perez Work Phone: [facility] 250 DO Work Phone: Start: 04-10-[address] Jun Perez Facility:[id number] Start: 04-10-2023 End: 04-11-2023 ambulatory TJ MAYO Facility:[facility] Start: 04-01-[address] Lashell Betancourt ty:[id number] Start: 03-31-2023 Encounter for preprocedural cardiovascular examination Dr. Lashell Osborn [facility] Start: 03-31-[address] Lashell Betancourt ty:[id number] Start: 03-31-2023 Encounter for preprocedural cardiovascular examination Dr. Lashell Osborn [facility] Start: 03-09-2023 End: 03-09-2023 ambulatory Tj Mayo Other [employer] Other Start: 03-09-2023 Telephone encounter Tj Mayo [facility] Start: 02-17-2023 End: 02-17-2023 ambulatory Jun Perez Other [employer] Other Start: 02-17-2023 Office outpatient vi sit 15 minutes Jun MOSQUEDA [facility] Start: 02-06-2023 End: 02-06-2023 ambulatory Tj Mayo Other [employer] Other Start: 02-06-2023 Telephone encounter Tj Mayo [facility] [employer] Start: 02-04-2023 End: 02-04-2023 ambulatory Tj Mayo Other [employer] Other Start: 02-04-2023 Office outpatient ne w 45 minutes Tj Mayo [facility] Start: 02-04-2023 Telephone encounter Tj Mayo [facility] Start: 01-23-2023 Office outpatient vi sit 25 minutes Jun Perez Work Phone: [facility] 250 DO Work Phone: Start: 01-23-[address] Jun Perez Facility: Start: 12-29-2022 End: 12-29-2022 ambulatory Jun Perez Other [employer] Other Start: 12-29-2022 Telephone encounter Jun Perez [facility] Start: 12-26-2022 Office outpatient ne w 45 minutes Jun Perez Work Phone: [facility] DO Work Phone: Start: 12-26-[address] Malika Patel Facility: Start: 12-02-2022 End: 12-02-2022 ambulatory Jun Perez Other [employer] Other Start: 12-02-2022 Telephone encounter Jun Perez [facility] Start: 12-01-2022 End: 12-01-2022 ambulatory Jun Perez Other [employer] Other Start: 12-01-2022 Office outpatient ne w 60 minutes Jun Perez [facility] Start: 11-25-2022 End: 11-25-2022 ambulatory Edie Morse Other [employer] Other Start: 11-25-2022 Telephone encounter Edie azar [facility] [employer] Start: 11-20-2022 End: 11-20-2022 ambulatory Edie Morse Other [employer] Other Start: 11-20-2022 Office outpatient ne w 30 minutes Edie Morse [facility] Start: 09-08-2022 End: 09-08-2022 ambulatory Phyllis Reyes Other [employer] Other Start: 09-08-2022 Office outpatient vi sit 15 minutes Phyllis Reyes [facility] Start: 05-25-2022 End: 05-25-2022 ambulatory Phyllis Reyes Other [facility] [employer] Other Start: 05-25-2022 Office outpatient vi sit 15 minutes Phyllis Reyes [facility] Start: 04-30-2022 End: 04-30-2022 ambulatory Mary Bryson Other [facility] [employer] Other Start: 04-30-2022 Office outpatient vi sit 25 minutes Maryloren Bryson [facility] Start: 03-13-2013 End: 03-14-2013 Emergency department patient visit NO REFERRING DR Facility:[facility] Patient encounter status Jun Perez Work Phone: [facility] DO Work Phone: Procedures Date Procedure [...] Treatment Date Care Activity Detail Author Start: 07-17-2025 Influenza vaccination Influenz a Vaccine (Season Ended) [facility] Start: 07-06-2025 End: 07-06-2025 Patient encounter procedure 07/06/2025 9:40 AM EDT Procedure Visit [facility] [address] [facility] [address] [place] [address] Bony Gibson [employer]PHomero [address] [facility] [address] [place] [address] [facility] Start: 05-31-2025 Patient referral [facility] Work Phone: Start: 04-27-2025 End: 04-27-2025 Patient encounter procedure [facility] Comment on above: Diabetes mellitus du e to underlying condition with diabetic polyneuropathy, unspecified whether retail sales consultant insulin use (HCC) (Primary Dx); Pain due to onychomycosis of toenails of both feet Start: 02-16-2025 End: 02-16-2025 Patient encounter procedure [facility] Comment on above: Diabetes mellitus du e to underlying condition with diabetic polyneuropathy, unspecified whether retail sales consultant insulin use (CMS/HCC) (Primary Dx); Pain due to onychomycosis of toenails of both feet Start: 12-08-2024 End: 12-08-2024 Patient encounter procedure 12/08/2024 8:50 AM EST Office Visit [facility] [address] [id number] Bony Gibson DPM [address] [id number] Abscess of toe, right (Primary Dx); Diabetes mellitus due to underlying condition with diabetic polyneuropathy, unspecified whether detention insulin use (CMS/HCC); Pain due to onychomycosis of toenails of both feet [facility] Comment on above: Abscess of toe, righ t (Primary Dx); Diabetes mellitus due to underlying condition with diabetic polyneuropathy, unspecified whether detention insulin use (CMS/HCC); Pain due to onychomycosis of toenails of both feet Start: 11-22-2024 End: 11-22-2024 Patient encounter procedure 11/22/2024 9:10 AM EST Office Visit [facility] [address] [place] [id number] Bony Gibson DPM [address] [address] Arrived [facility] Comment on above: Arrived Start: 08-17-2024 End: 08-17-2024 Patient encounter procedure 08/17/2024 12:30 PM EDT Office Visit [facility] [address] [place] [id number] Sb Osorio DO [address] [place] [id number] Arrived [facility] Comment on above: Arrived Start: 07-17-2024 Influenza vaccination Influenza Vacc ine (#1) [facility] Start: 03-28-2024 End: 03-28-2024 Patient encounter procedure 03/28/2024 10:45 AM EDT Office Visit [facility] [address] [facility] [address] [place] [address] Britney Yu MD 254 [facility] [address] [place], [place] [id number] [facility] Start: 10-29-2023 End: 10-15-2024 Basic metabolic 2000 panel - Serum or Plasma Basic Metabolic Panel Lab Routine CHF (congestive heart failure), NYHA class II, acute on chronic, combined (CMS/HCC) Nonischemic cardiomyopathy (CMS/HCC) Medication course changed Expected: 10/29/2023 (Approximate), Expires: 10/15/[address] [facility] Service Area Work Phone: Comment on above: Expected: 10/29/2023 (Approximate), Expires: 10/15/2024 Start: 10-22-2023 End: 10-15-2024 Basic metabolic 2000 panel - Serum or Plasma Basic Metabolic Panel Lab Routine CHF (congestive heart failure), NYHA class II, acute on chronic, combined (CMS/HCC) Nonischemic cardiomyopathy (CMS/HCC) Medication course changed Expected: 10/22/2023 (Approximate), Expires: 10/15/2024 [facility] Work Phone: Comment on above: Expected: 10/22/2023 (Approximate), Expires: 10/15/2024 Start: 10-21-2023 [facility] Start: 10-15-2023 End: 10-15-2023 Patient encounter procedure 10/15/2023 10:45 AM EST Office Visit [facility] 7[address] [facility] [address] [place] [address] Britney Yu MD 254 [facility] [address] [place] [address] [facility] Start: 10-05-2023 End: 09-28-2024 Basic metabolic 2000 panel - Serum or Plasma Basic Metabolic Panel Lab Routine Hypertensive heart and CKD, 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) CHF (congestive heart failure), NYHA class II, acute on chronic, combined (CMS/[facility]) 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) Expected: 10/05/2023 (Approximate), Expires: 09/28/[address] [facility] Service Area Work Phone: Comment on above: Expected: 10/05/2023 (Approximate), Expires: 09/28/2024 Start: 09-28-2023 FUV, Provider: Britney Yu, Status: Pen, Time: 10:15 AM FUV, Provider: Britney Yu, Status: Pen, Time: 10:[address] [facility] 250 DO Work Phone: Start: 07-22-2023 FUV, Provider: Odilia Olsen, Status: Pen, Time: 10:00 AM FUV, Provider: Odilia Olsen, Status: Pen, Time: 10:00 AM [place] [address] DO Work Phone: Start: 07-17-2023 Influenza vaccination Influenza Vacc ine (#1) [facility] Start: 06-26-2023 FUV, Provider: Lashell Osborn, Status: Pen, Time: 10:30 AM FUV, Provider: Lashell Osborn, Status: Pen, Time: 10:[address] [facility] 250 DO Work Phone: Start: 06-22-2023 FUV, Provider: Britney Yu, Status: Pen, Time: 11:00 AM FUV, Provider: Britney Yu, Status: Pen, Time: 11:[address] [facility] 250 DO Work Phone: Start: 06-08-2023 FUV, Provider: Britney Yu, Status: Pen, Time: 11:30 AM FUV, Provider: Britney Yu, Status: Pen, Time: 11:[address] [facility] 250 DO Work Phone: Start: 05-14-2023 FUV, Provider: Britney Yu, Status: Pen, Time: 11:00 AM FUV, Provider: Britney Yu, Status: Pen, Time: 11:00 AM [facility] Work Phone: Start: 04-27-2023 MUGA, Provider: ANGEL BRENDA HHVI NUCLEAR 01,[id number], Status: Pen, Time: 2:30 PM MUGA, Provider: MILAGROS [facility]VI NUCLEAR 01,[id number], Status: Pen, Time: 2:[address] [facility] 250 DO Work Phone: Start: 02-24-2023 REST ONLY, Provider: MILAGROS [facility]VI NUCLEAR 01,[id number], Status: Pen, Time: 12:30 PM REST ONLY, Provider: MILAGROS [facility]VI NUCLEAR 01,[id number], Status: Pen, Time: 12:[address] [facility] 250 DO Work Phone: Start: 02-19-2023 STRESSNUC2, Provider : MILAGROS [facility]VI NUCLEAR 01,[id number], Status: Pen, Time: 12:30 PM STRESSNUC2, Provider: MILAGROS [facility] NUCLEAR 01,[id number], Status: Pen, Time: 12:[address] [facility] 250 DO Work Phone: Start: 02-21-2022 COVID-19 Vaccine (2 - Pfizer series) COVID-19 Vaccine (2 - Pfizer series) [facility] Start: 2015 Pneumococcal Vaccine : 65+ Years (1 of 1 - PCV) Pneumococcal Vaccine: 65+ Years (1 of 1 - PCV) [facility] Start: 2000 Pneumococcal Vaccine : 65+ Years (1 of 1 - PCV) Pneumococcal Vaccine: 65+ Years (1 of 1 - PCV) [facility] Start: 2000 Zoster Vaccines (1 of 2) Zoste r Vaccines (1 of 2) [facility] Start: 1972 DTaP/Tdap/Td Vaccine s (1 - Tdap) DTaP/Tdap/Td Vaccines (1 - Tdap) [facility] Start: 1969 Urine screening for protein Diabetes: Urine Protein Screening [facility] Start: 1968 Hepatitis C screening Hepatitis C Sc reening [facility] Start: 1960 Diabetic foot examination Diabetes: Foot Exam [facility] Start: 1960 Glaucoma screening Diabetes: R etinopathy Screening [facility] Start: 1956 Pneumococcal Vaccine : 65+ Years (1 - PCV) Pneumococcal Vaccine: 65+ Years (1 - PCV) [facility] Start: 1950 Creatinine measurement Creatinine Le campos [facility] Start: 1950 Echocardiography Echocardiogram [facility] Start: 1950 Hemoglobin A1c measurement Rosa betes: Hemoglobin A1C [facility] Start: 1950 Lipid panel Lipid Panel [facility] Start: 1950 Medicare Annual Well ness Visit Medicare Annual Wellness Visit (AWV) [facility] Start: 1950 Potassium measurement Potassium Leve l [facility] Start: 1950 Screening for malign ant neoplasm of colon [facility] Patient Education [facility] Work Phone: Patient referral [facility] Work Phone: Renal function 1999 panel - Serum or Plasma [facility] Renal function 2000 panel - Serum or Plasma [facility] Renal function 1999 panel - Serum or Plasma [facility] XR Hip - left 2 Views [facility] Immunizations Immunization Date Immunization Notes Care Provider Kostas bailey 12-08-2005 tetanus toxoid, adsorbed Osvaldo francesco Osorio DO Work Phone: [facility] Payers Date Payer Category Payer Self-pay [id number] 2022 Medicare [id number] 2022 Medicare (Managed Care) [employer] ADV[employer] Member Subscriber Plan / Payer (Effective 2022-Present) Name: Td Giraldo Relation to Subscriber: Self Name: Td Giraldo Payer ID: [id number] (NAIC) Type: Not on file Address: [place] [id number] 1959 Medicare [id number] 1950 Unknown [id number] 2.840.1.625382.3.579.2. 593 1950 Unknown [id number] 2.16840.1.366670.3.579.2. 356 1950 Unknown [id number] 2.16840.1.902732.3.579.2. 356 1950 Unknown [id number] 2.16.840.1.406073.3.579.2. 356 1950 Unknown [id number] 2.16.840.1.624220.3.579.2. 356 1950 Unknown [id number] 2.16.840.1.589411.3.579.2. 8 1950 Unknown [id number] 2.16840.1.981434.3.579.2. 1067 1950 Unknown [id number] 2.16.840.1.709776.3.579.2. 1067 1950 Unknown [id number] 2.16840.1.610658.3.579.2. 1950 Unknown [id number] 2.16840.1.382812.3.579.2. 1950 Unknown [id number] 2.840.1.742146.3.579.2. 1243 1950 Unknown [id number] 2.840.1.255817.3.579.2. 1243 1950 Unknown [id number] 2.0.1.488561.3.579.2. 1258 1950 Unknown [id number] 2.0.1.454836.3.579.2. 1258 1950 Unknown [id number] 2.0.1.953093.3.579.2. 1258 1950 Unknown [id number] 2.840.1.650464.3.579.2. 1258 1950 Unknown [id number] 2.0.1.514488.3.579.2. 1259 Medicare [id number] 2.840.1.573512.19 Medicare [id number] 2.0.1.962803.19 Medicare Medicare [id number] Unknown [id number] Unknown [id number] 2.840.1.797518.19 Unknown [employer] GOLD CHOICE Unknown [id number] 2.840.1.303336.3.579.2. 531 Unknown [id number] 2.840.1.397154.3.579.2. 531 Social History Date Type Detail Facility Start: 09-28-2023 End: 02-16-2025 Sex Assigned At [facility] [employer] Other Start: 09-28-2023 End: 02-16-2025 No alcohol use No alcohol use -[facility] 250 DO Work Phone: Start: 04-10-2021 End: 10-19-2024 Tobacco smoking status NHIS Never smoked tobacco (finding) [facility] Start: 1950 Sex Assigned At Male F [facility] Start: 04-29-2023 End: 09-25-2023 Tobacco use and exposure Smokeless tobacco non-user [facility] Work Phone: Start: 09-28-2023 End: 10-15-2023 Alcohol intake Lifetime non-drinker (finding) [facility] Work Phone: Start: 1950 Sex Assigned At [facility] Work Phone: Start: 09-18-2023 End: 10-15-2023 Exposure to SARS-CoV-2 (event) Not sure [facility] Start: 08-17-2024 End: 04-27-2025 Alcoholic beverage intake Current drinker of alcohol (finding) [facility] How often to you hav e a drink containing alcohol? Monthly or less [facility] How many standard drinks containing alcohol do you have on a typical day? 1 or 2 [facility] How often do you hav e 6 or more drinks on 1 occasion? 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 acute May 31, 2025 1:17pm Morbid (severe) obesity due to excess calories acute May 1:17pm Pernicious anemia acute May 312024 1:17pm Stage 3b chronic kidney disease acute May 31, 2025 1:17pm Degenerative joint disease of left hip acute June 12, 2 025 10:01am Low back pain acute June 12, 2025 10:01am [facility] Work Phone: 1(772) 819-222805-15-2025 Evaluation note* Diagnosis Onset Date Resolution Status Admit Date BMI 35.0-35.9,adult acute March 162024 9:20am Dietary counseling and surveillance acute March 30, 2025 9 :20am HTN (hypertension) acute March 302024 9:20am Hyperlipidemia acute March 30, 2025 9:20am Type 2 diabetes mellitus wit h diabetic chronic kidney disease acute March 30, 2025 9:20am CHF (congestive heart failure) acute May 31, 2025 1:17pm Chronic left hip pain acute May 1:17pm Chronic pain of right knee acute May 31, 2025 1:17pm Pernicious anemia acute May 312024 1:17pm [facility] Work Phone: 1(632) 889-360005-15-2025 Evaluation note* Diagnosis Onset Date Resolution Status Admit Date BMI 35.0-35.9,adult acute March 162024 9:20am Dietary counseling and surveillance acute March 30, 2025 9 :20am HTN (hypertension) acute March 302024 9:20am Hyperlipidemia acute March 30, 2025 9:20am Type 2 diabetes mellitus wit h diabetic chronic kidney disease acute March 30, 2025 9:20am CHF (congestive heart failure) acute May 31, 2025 1:17pm Chronic left hip pain acute May 1:17pm Chronic pain of right knee acute May 31, 2025 1:17pm 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 acute May 31, 2025 1:17pm Morbid (severe) obesity due to excess calories acute May 31, 2025 1:17pm Pernicious anemia acute May 312024 1:17pm Stage 3b chronic kidney disease acut e May 31, 2025 1:17pm [facility] Work Phone: 1(679) 974-942405-15-2025 Evaluation note* Diagnosis Onset Date Resolution Status Admit Date BMI 35.0-35.9,adult acute March 162024 9:20am Dietary counseling and surveillance acute March 30, 2025 9 :20am HTN (hypertension) acute March 302024 9:20am Hyperlipidemia acute March 30, 2025 9:20am Type 2 diabetes mellitus wit h diabetic chronic kidney disease acute March 30, 2025 9:20am CHF (congestive heart failure) acute May 31, 2025 1:17pm Chronic left hip pain acute May 1:17pm Chronic pain of right knee acute May 31, 2025 1:17pm 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 acute May 31, 2025 1:17pm Morbid (severe) obesity due to excess calories acute May 31, 2025 1:17pm Pernicious anemia acute May 312024 1:17pm Stage 3b chronic kidney disease acut e May 31, 2025 1:17pm Degenerative joint disease o f left hip acute June 12, 2025 10:01am Low back pain acute June 12, 2025 10:01am [facility] Work Phone: 1(224) 925-394904-03-2025 History of Present illness Narrative* Bonyhayes Gibson, DPM - 02/16/2025 9:20 AM EDT Patient: Td Giraldo : 1950 PCP: Jun Perez MD SUBJECTIVE Patient presents today with a CC of [...] Abnormal kidney function CHF (congestive heart failure) (CMS/[facility]) History of being hospitalized renal failure Hypertension ([facility]) Kidney stones Type 2 diabetes mellitus ([facility]) Medications: Current Outpatient Medications: ascorbic acid (Vitamin [...] and 25 mg in the evening and 25mg before bedtime., Disp: , Rfl: cholecalciferol (Vitamin D-3) 50 MCG (1999 UT) capsule, Take 2,000 Units by mouth [...] VASC: Palpable pedal pulses bilaterally NEURO: 5.07 [place] Temo monofilament test intact to digits and forefoot bilaterally 125Hz tuning fork diminished to 1st MPJ bilaterally ORTHO: Minimal pain on palpation to the right hallux Positive pain on palpation to toenails of the left 1,2,3,4,5 toes and right 2,3,4,5 toes ASSESSMENT 1. Diabetes mellitus due to underlying condition with diabetic polyneuropathy, unspecified whether retail sales consultant insulin use ([facility]) 2. Pain due to onychomycosis of toenails of both feet PLAN Discussed proper foot care with patient today. Debride nails in length and thickness digits 1 through 9 Patient educated today on proper diabetic foot care including monitoring feet daily for any signs of infection openings in the skin or irregularities to both feet. Patient had a diabetic neurologicalexam today to both their feet and discussed proper shoe gear. Bony Gibson DPM documented in this encounterSoutheast [facility] [id number] Evaluation note* Diagnosis Onset Date Resolution Status Admit Date Chronic left hip pain acute Feb 9:25am Fatigue acute February 14 9:25am HTN (hypertension) acute February 14, 2025 9:25am Type 2 diabetes mellitus wit h diabetic chronic kidney disease acute February 14, 2025 9:25am BMI 35.0-35.9,adult acute March 162024 9:20am Dietary counseling and surveillance acute March 30, 2025 9 :20am HTN (hypertension) acute March 302024 9:20am Hyperlipidemia acute March 30, 2025 9:20am Type 2 diabetes mellitus wit h diabetic chronic kidney disease acute March 30, 2025 9:20am [facility] Work Phone: 1(429) 410-976402-11-2025 Evaluation note* Diagnosis Onset Date Resolution Status Admit Date Tim hy kid w cr kid I-IV acute December 27, 2024 11:37am Chronic kidney disease, stag e III (moderate) acute December 27 11:37am Complex renal cyst acute 2024 11:37am Nephrolithiasis acute December 27, 2024 11:37am Proteinuria acute December 11:37am Secondary hyperparathyroidism acute December 27, 2024 11:37am Type 2 diabetes mellitus wit h diabetic chronic kidney disease acute December 27, 2024 11:37am [facility] Work Phone: 1(374) 144-484302-11-2025 Evaluation note* Diagnosis Onset Date Resolution Status Admit Date Tim hy kid w cr kid I-IV acute December 27, 2024 11:37am Chronic kidney disease, stag e III (moderate) acute December 27 025 11:37am Complex renal cyst acute 2024 11:37am Nephrolithiasis acute December 27, 2024 11:37am Proteinuria acute December 11:37am Secondary hyperparathyroidism acute December 27, 2024 11:37am Type 2 diabetes mellitus wit h diabetic chronic kidney disease acute December 27, 2024 11:37am Chronic left hip pain acute Feb 9:25am Fatigue acute February 14 9:25am HTN (hypertension) acute February 14, 2025 9:25am Type 2 diabetes mellitus wit h diabetic chronic kidney disease acute February 14, 2025 9:25am [facility] Work Phone: 1([phone]) 828-620301-23-2025 History of Present illness Narrative* Bony Gibson, MARY - 12/08/2024 8:50 AM EST Patient: Td Giraldo : 1950 PCP: Jun Perez MD SUBJECTIVE This is a 73 y.o. male that presents today 14 d s/p incision and drainage of abcess with nail avulsion to the right hallux Pt states that they have been following all post op instructions and have been taking antibiotic asprescribed. Pt denies n/f/v/c and has negative pain [...] Abnormal kidney function CHF (congestive heart failure) ([facility]) History of being hospitalized renal failure Hypertension ([facility]) Kidney stones Type 2 diabetes mellitus ([facility]) Medications: Current Outpatient Medications: ascorbic acid (Vitamin [...] and 25 mg in the evening and 25mg before bedtime., Disp: , Rfl: cholecalciferol (Vitamin D-3) 50 MCG (1999 UT) capsule, Take 2,000 Units by mouth [...] by mouth Daily, Disp: , Rfl: saw arthuro (Serenoa repens) 1000 MG capsule, 1 capsule., Disp: , Rfl: ROS: General: denies fever, chills, fatigue, malaise GI: denies loose or watery stool on antibiotic OBJECTIVE LE EXAM: DERM: Negative erythema, negative drainage from the right hallux. Elongated thick yellow crumbly digit nails 1 through 9 nail toenails. Diminished hair growth VASC: Palpable pedal pulses bilaterally NEURO: 5.07 [place] Temo monofilament test intact to digits and [...] diabetic polyneuropathy, unspecified whether detention insulin use ([facility]) 3. Pain due to onychomycosis of toenails [...] to both feet. Patient had a diabetic neurologicalexam today to both their feet and discussed proper shoe gear. Bony Gibson DPM documented in this encounterSoutheast Missouri [id number] History of Present illness Narrative* Bony Gibson DPM - 11/22/2024 9:10 AM EST Patient: Td Giraldo : 1950 PCP: Jun [...] Abnormal kidney function CHF (congestive heart failure) ([facility]) History of being hospitalized renal failure Hypertension ([facility]) Kidney stones Type 2 diabetes mellitus ([facility]) Medications: Current Outpatient Medications: ascorbic acid (Vitamin [...] and 25 mg in the evening and 25mg before bedtime., Disp: , Rfl: cholecalciferol (Vitamin [...] from the right hallux with hair growth notedto b/l feet. VASC: Palpable pedal pulsed b/l with warm to cool tibia to toes b/l NEURO: 5.07 [place] Tem[place] monofilament test diminished to digits and forefoot bilaterally 125Hz tuning fork diminished to 1st MPJ bilaterally ORTHO: Ankle ROM less than 10 degrees b/l. Positive pain on palpation to right hallux nail ASSESSMENT 1. Onychomycosis 2. Toe pain, right 3. Abscess of toe, right 4. 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 Wound then was flushed with NSS and DSD applied to digit. Pt is to have a prescription for an antibiotic. Patient educated today on proper diabetic foot care including monitoring feet daily for any signs of infection openings in the skin or irregularities to both feet. Patient had a diabetic neurologicalexam today to both their feet and discussed proper shoe gear. Bony Gibson DPM documented in this encounterSoutheast Missouri [id number] Evaluation note* Diagnosis Onset Date Resolution Status Admit Date BMI 35.0-35.9,adult acute Novem analilia 2023 9:19am Dietary counseling and surveillance acute September 29, 9:19am HTN (hypertension) acute Novemb er 2023 9:19am Hyperlipidemia acute September 162023 9:19am Type 2 diabetes mellitus wit h diabetic chronic kidney disease acute September 29, 2024 9:19am BPV (benign positional vertigo) acut e October 18, 2024 1:01pm Chronic HFrEF (heart failure with reduced ejection fraction) acute Decem analilia 2023 9:55am Chronic kidney disease, stag e III (moderate) acute October 19 9:55am HTN (hypertension) acute Decemb er 2023 9:55am Non-ischemic cardiomyopathy acute October 19, 2024 9:55am Type 2 diabetes mellitus wit h diabetic chronic kidney disease acute October 19, 2024 9:55am Tim hy kid w cr kid I-IV acute December 27, 2024 11:37am Chronic kidney disease, stag e III (moderate) acute December 27, 025 11:37am Complex renal cyst acute ua 2024 11:37am Nephrolithiasis acute December 27, 2024 11:37am Proteinuria acute December 11:37am Secondary hyperparathyroidism acute December 27, 2024 11:37am Type 2 diabetes mellitus wit h diabetic chronic kidney disease acute December 27, 2024 11:37am [facility] Work Phone: 1([phone]) 231-480710-02-2024 History of Present illness Narrative* Sb Osorio DO - 08/17/2024 12:30 PM EDT Images from the original note were not [...] Abnormal kidney function CHF (congestive heart failure) ([facility]) History of being hospitalized renal failure Hypertension ([facility]) Kidney stones Type 2 diabetes mellitus ([facility]) Past Surgical History: Procedure Laterality Date CHOLECYSTECTOMY [...] to be working well for him. His [place] Sleepiness scale is a 1. His compliance data is fantastic he is using 100 percent ofthe time greater than 4 hours with an average nightly usage of 8 hours and 4 minutes and residual AHI of 3.9. Plan PSG was reviewed with him Titration study was reviewed with him Compliance data was reviewed and he is compliant as above [place] Sleepiness scale is a 1 The patient was counseled on proper sleep hygiene and adequate hours of sleep. The patient was counseled on the need for aggressive diet, exercise, and weight loss. The patient was counseled on the risks of stroke, AK, and sudden with EVY, along with the [...] to clinic: 1 year documented in this [facility]08-19-2024 Evaluation note* Diagnosis Onset Date Resolution Status Admit Date Tim hy kid w cr kid I-IV acute July 04, 2024 10:50am Chronic kidney disease, stag e III (moderate) acute July 04 10:50am Complex renal cyst acute July 04, 2024 10:50am Nephrolithiasis acute July 042023 10:50am Proteinuria acute July 04, 2024 10:50am Secondary hyperparathyroidism acute July 04, 2024 10:50am Thrombocytopenia acute June 162023 10:50am Type 2 diabetes mellitus wit h diabetic chronic kidney disease acute July 04, 2024 10:50am Chronic kidney disease, stag e III (moderate) acute August 08, 2024 2:09pm Right peroneal tendinosis acute August 08, 2024 2:09pm Thrush acute July 2:09pm BMI 36.0-36.9,adult acute Novem 2023 9:19am Dietary counseling and surveillance acute September 29, 2 024 9:19am HTN (hypertension) acute Novemb er 2023 9:19am Hyperlipidemia acute September 162023 9:19am Type 2 diabetes mellitus wit h diabetic chronic kidney disease acute September 29, 2024 9:19am [facility] Work Phone: 1(643) 911-783202-06-2024 Evaluation note* Encounter Date Diagnosis Assessment Notes [...] hyperglycemia, or diabetes medication issues. 6. Prescriptions: NewsiT carmelita 3 cgm sent. 7. 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 [facility] with NO in the past was negative for obstructive CAD. NYHA 2, ACC B.# HTN# DM - Diabetes is managed at the [facility] diabetes center. # CKD - BMP 11/05/23 sCr 1.66 BUN 43. 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 # Obesity - Has lost > 30 lbs in the last year which has helped his HTN and BP control.PCP: Dr. Zi Parham ([facility]), Dr. Gracia Perez (in [place]) Nuclear MPI in 2022 at [facility] - EF 31%. No ischemia or infarct.Echo in 2022 at [facility] - EF 25-30%MUGA done 04/27/23 at [facility] - EF 27%. EKG 03/27/21 - NSR 63 bpm, 1st degree AVB, iLBBB. EKG 11/18/23 in clinic - NSR 67 bpm, 1st degree AVB, IVCD, nonspecific T wave abnormalities. - BP elevated here today. But pt says his BP at home is 120/70s. See regimen changes below.- GDMT: Prior notes from Dr. Yu ([facility]) say he didn't tolerate Entresto [...] 1 month with BMP before that visit. [facility] Other 01-29-2024 Evaluation note* Encounter Date Diagnosis Assessment Notes Treatment Notes Treatment Clinical Notes Nov, Type 2 diabetes mellitus with other diabetic kidney complication, without long-term current use of insulin (ICD-10 - E11.29) Nov, Chronic congestive heart failure, unspecified heart failure type (ICD-10 - I50.9) Nov, CKD (chronic kidney disease) stage 2, GFR 60-89 ml/min (ICD-10 - N18.2) [facility] Other 01-04-2024 Evaluation note* Encounter Date Diagnosis [...] verbalized understanding and agreement with treatment plan. [facility] Other 01-03-2024 Evaluation note* Encounter Date Diagnosis [...] - NYHA 2, ACC B. Had a C with [facility] in the past that was negative. 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 # Obesity - Has lost > 30 lbs in the last year which has helped his HTN and BP control.PCP: Dr. Zi Parham ([facility]), Dr. Gracia Perez (in [place]) Nuclear MPI in 2022 at [facility] - EF 31%.Echo in 2022 at [facility] - EF 25-30%MUGA done 04/27/23 at [facility] - EF 27%. EKG 03/27/21 - NSR 63 bpm, 1st degree AVB, iLBBB. EKG 11/18/23 in clinic - NSR 67 bpm, 1st degree AVB, IVCD, nonspecific T wave abnormalities. -I reviewed his last [address] Britney Yu at [facility].- GDMT: Says that he didn't tolerate Entresto [...] 1 month with BMP before that visit. [facility] Other 12-06-20[facility] History of Present illness Narrative* Britney [...] Problem List Diagnosis Date Noted Nonischemic cardiomyopathy ([facility]/HCC) 10/15/2023 Obesity, morbid ([facility]) 09/28/2023 Abnormal EKG 09/25/2023 Cardiomyopathy (CMS/HCC) 09/25/2023 CHF (congestive heart failure), NYHA class II, acute on chronic, combined ([facility]) 09/25/2023 Diabetes mellitus with kidney disease ([facility]) 09/25/2023 First degree atrioventricular block 09/25/2023 Hyperlipidemia [...] months Britney Yu MD [facility] Work Phone: 1([phone]) 738-843211-30-2023 Instructions* Patient Instructions* Eric Corcoran MA - [...] Fall Prevention Education Given documented [facility] Work Phone: 1(644) 533-314711-13-2023 History of Present illness Narrative* Britney Yu [...] Diagnosis Date Noted Abnormal EKG 09/25/2023 Cardiomyopathy ([facility]) 09/25/2023 CHF (congestive heart failure), NYHA class II, acute on chronic, combined ([facility]) 09/25/2023 Diabetes mellitus with kidney disease ([facility]) 09/25/2023 First degree atrioventricular block 09/25/2023 Hyperlipidemia 09/25/2023 Hypertensive heart and CKD, ESRD on dialysis ([facility]) 09/25/2023 Medication course changed 09/25/2023 Obstructive sleep apnea, adult 09/25/2023 Personal history of COVID-19 09/25/2023 Pre-operative cardiovascular examination 09/25/2023 Primary hypertension 09/25/2023 Type 2 diabetes mellitus without complication ([facility]) 09/25/2023 Assessment: Patient does not appear euvolemic Patient has chronic systolic left heart failure functional class II Patient has diabetes without hypoglycemia with kidney disease Test results were reviewed. Recommendations: 1. Continue Entresto if affordable otherwise go back to hydralazine 2. Follow-up as scheduled Follow up : 6 months Britney Yu MD documented [facility] Work Phone: 1(287) 759-350711-13-2023 Instructions* Patient Instructions* Davis Riggs MA - [...] time of your visit. documented in [facility]Green [facility] Work Phone: 1(625) 641-393511-02-2023 Evaluation note* Encounter Date Diagnosis Assessment Notes [...] or diabetes medication issues. 6. Prescriptions: [facility] [place] [facility] [employer]carmelita 3 cgm sent 09/17/23. Sample carmelita 3 [...] spent on education with Aleah DAVIS, RN. [facility] Other 06-02-2023 Evaluation note* Encounter Date Diagnosis Assessment Notes Treatment Notes Treatment Clinical Notes Apr, Type 2 diabetes mellitus with hyperglycemia, without long-term current use of insulin (ICD-10 - E11.65) Handwrote referral for diabetes and MNT through [facility]. Discussed switching from glipizide to ozempic. He prefers to wait at this time. 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 He discussed that he does not have chest pain, dyspnea or significant edema. He has researched his EF and echo results. He does not feel that his symptoms are significant enough to proceed w pacer or defibrillator. Followup w Cardiology. Apr, Chronic kidney disease, stage III (moderate) (ICD-10 - N18.30) Reviewed notes and advised he follow Dr. Huber's recommendations. [facility] Other 06-01-2023 Evaluation note* Encounter Date Diagnosis [...] check iron studies B12 and folate level. [facility] Other 04-04-2023 Evaluation note* Encounter Date Diagnosis Assessment Notes Treatment Notes Treatment Clinical Notes Feb, Bronchitis (ICD-10 - J40) Bronchitis suspected due to wheezes, chest tightness, cough and/or impaired air movement. Medication prescribed. Avoid extreme heat and cold as this may exacerbate inflammation of airways. If wheezing, chest tightness and/or SOB occurs, go to ER. [facility] Other 03-22-2023 Evaluation note* Encounter Date Diagnosis [...] do a work-up to rule it out. [facility] Other 02-13-2023 Evaluation note* Encounter Date Diagnosis Assessment Notes Treatment Notes Treatment Clinical Notes Dec, Type 2 diabetes mellitus with other diabetic kidney complication, without long-term current use of insulin (ICD-10 - E11.29) Dec, Neuropathy of left lower extremity (ICD-10 - G57.92) [facility] Other 01-16-2023 Evaluation note* Encounter Date Diagnosis [...] Nov, Precancerous skin lesion (ICD-10 - L98.9) [facility] Other 01-05-2023 Evaluation note* Encounter Date Diagnosis [...] understanding and is agreeable to treatment plan. [facility] Other 10-24-2022 Evaluation note* Encounter Date Diagnosis [...] the ER for worsening symptoms or concerns. [facility] Other 07-10-2022 Evaluation note* Encounter Date Diagnosis Assessment Notes Treatment Notes Treatment Clinical Notes May, Hordeolum externum of right lower eyelid (ICD-10 - H00.012) [employer]de[employer] home care material was printed Use the eye ointment as prescribed. Apply warm compresses to your eye 2-3 times a day. Follow-up with your eye doctor if no improvement in 3 to 4 days. [facility] Other 06-15-2022 Evaluation note* Encounter Date Diagnosis [...] pain of right knee (ICD-10 - M25.561) [facility] Other 09-01-2020 History of Present illness Narrative* [...] Patient is no longer receiving care from [facility]: Transferred care to [facility] with new patient assessment by Dr. Osborn [...] January, there has been further prolongation of [place] interval and mild elongation of QRS duration. [...] 6. Will be a great candidate for Med fusion-1.618 Technologydijerson, will discuss at next [facility] Work Phone: [phone]) [phone] History of Present illness Narrative* Patient was [...] Patient is no longer receiving care from [facility]: Transferred care to [facility] with new patient assessment by Dr. Osborn [...] January, there has been further prolongation of W[place] interval and mild elongation of QRS duration. [...] 6. Will be a great candidate for Med fusion-[facility] Jardiance, will discuss at next visit [facility] [address] DO Work Phone: [phone]) 476-613703-10-2013 History of Present illness Narrative* 72 yo [...] on his current medications. No complaints today. [facility] [employer] DO Work Phone: [phone]) 171-974902-10-2013 History of Present illness [age]rams38 yo male here to establish care. Has a reported hx of CHF 10 years ago but states his EF has since recovered. He endorses weekly exercise (5x per week) with no issues. State's he very active. No chest pain, palpitations, presyncope/syncope, LE edema, PND, orthopnea. Checks his BP daily and statesits well-controlled on his current medications. No complaints today.-[facility] [employer] DO Work Phone: Chiao complaint Narrative - ReportedADRIEL GIRALDO is being seen for a consultation for CHF- former [facility] [employer] [facility] DO Work Phone: Chidf complaint+Reason for visit Narrative* Chief Complaint I42.8 [...] diabetes mellitus with diabetic chronic kidney disease [facility] Work Phone: Chitw complaint+Reason for visit Narrative* Chief Complaint I42.8 [...] Lumbar back pain EVY (obstructive sleep apnea) [facility] Work Phone: Chief complaint+Reason for visit Narrative* Chief Complaint referral for sleep c linic CC Heart Failure Follow Up Vertigo RENAL 6 MONTH F/U Reason for Visit Chronic kidney disea se, stage III (moderate) Irritable bowel syndrome with predominant constipation Lumbar back pain EVY (obstructive sleep apnea) Bilateral impacted cerumen BPV (benign positional vertigo) Tmi hy kid w cr kid I-IV Chronic kidney disease, stage III (moderate) Complex renal cyst Nephrolithiasis Proteinuria Thrombocytopenia Type 2 diabetes mellitus with diabetic chronic kidney disease [facility] Work Phone: Evaluation noteNo InformationNort [employer] Other Evaluation noteNo assessment information available [facility] Work Phone: Evaluation note* Diagnosis Personality disorder (CMS/HCC)- Primary Unspecified personality disorder Obesity, morbid ([facility]/HCC) Morbid obesity Hypertensive heart and CKD, ESRD on dialysis ([facility]/HCC) CHF (congestive heart failure), NYHA class II, acute on chronic, combined ([facility]/HCC) 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) Mixed hyperlipidemia Primary hypertension Unspecified essential hypertension Medication course changed documented in this encounter [facility] Work Phone: Evaluation note* Diagnosis CHF (congestive heart failure), NYHA class II, acute on chronic, combined ([facility]/HCC) Primary hypertension Unspecified essential hypertension Nonischemic cardiomyopathy ([facility]/HCC) Other primary cardiomyopathies Medication course changed Hypertensive heart and CKD, ESRD on dialysis ([facility]/HCC) Mixed hyperlipidemia 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) documented in this encounter [facility] Work Phone: Evaluation note* Diagnosis Onset Date Resolution Status Rhinitis, allergic acute Tim hy kid w cr kid I-IV acu te Chronic kidney disease, stage III (moderate) acute Complex renal cyst acute Nephrolithiasis acute Proteinuria acute Thrombocytopenia acute Type 2 diabetes mellitus wit h diabetic chronic kidney disease acute [facility] Work Phone: evaluation note* Diagnosis Onset Date Resolution Status Rhinitis, [...] wit h diabetic chronic kidney disease acute [facility] Work Phone: evaluation note* Diagnosis Onset Date Resolution Status Rhinitis, [...] diabetic chronic kidney disease acute [facility] Work Phone: evaluation note* Diagnosis Onset Date Resolution Status Rhinitis, [...] diabetic chronic kidney disease acute [facility] Work Phone: evaluation note* Diagnosis Onset Date Resolution Status Chronic [...] diabetic chronic kidney disease acute [facility] Work Phone: Evaluation note* Diagnosis Onset [...] pain acute EVY (obstructive sleep apnea) acute [facility] Work Phone: Evaluation note* Diagnosis Onset [...] diabetic chronic kidney disease acute [facility] Work Phone: Evaluation note* Diagnosis Onset Date Resolution Status Tim hy kid w cr kid I-IV acu te Chronic kidney disease, stage III (moderate) acute Complex renal cyst acute Nephrolithiasis acute Proteinuria acute Secondary hyperparathyroidism acute Thrombocytopenia acute Type 2 diabetes mellitus wit h diabetic chronic kidney disease acute 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 HealthcareEvaluation note* Diagnosis Diabetes mellitus due to underlying condition with diabetic polyneuropathy, unspecified whether retail sales consultant insulin use (CMS/HCC)- Primary Pain due to onychomycosis of toenails of both feet documented in this encounter [facility]* Diagnosis Diabetes mellitus due to underlying condition with diabetic polyneuropathy, unspecified whether retail sales consultant insulin use (HCC)- Primary Pain due to onychomycosis of toenails of both feet documented in this encounter [facility] HealthcareHistory and physical note Author Rodney Victor [facility] October 21, 2023 11:23am Note Date/Time October 21, 2023 1 1:23am [facility] [address] [place] [address] Gastroenterology H&P Signed Patient: Td Giraldo MR#: [id number] : 1950 Acct:[id number] Age/Sex: 72 / M Adm Date: 3 [...] <Electronically signed by Rodney Victor MD> 10/21/23 1121 [facility] Work Phone: history general Narrative - Reported* Type Description Date Medical History chronic renal failure Medical History hyperkalemia Medical History diabetes mellitus Medical History coronary artery disease Medical History sleep apnea Medical History hypertension Medical History obstructive uropathy Medical History CHF Medical History only has one kidney Medical History hypertension Surgical History left wrist ganglion cyst excisi on, volar [facility] Other Hisputh general Narrative - Reported* Type Description Date Medical History chronic renal failure Medical History hyperkalemia Medical History diabetes mellitus Medical History coronary artery disease Medical History sleep apnea Medical History hypertension Medical History obstructive uropathy Medical History CHF Medical History only has one kidney Medical History hypertension Surgical History left wrist ganglion cyst excisi on, volar Surgical History b/l cataracts [facility] Other Hisfbha general Narrative - Reported* Type Description Date Medical History chronic renal failure Medical History hyperkalemia Medical History diabetes mellitus Medical History Congestive heart failure Medical History sleep apnea Medical History hypertension Medical History obstructive uropathy Medical History only has one kidney Surgical History left wrist ganglion cyst excisi on, volar Surgical History b/l cataracts [facility] Other Hisrnda general Narrative - Reported* Type Description Date [...] 06/2015 Hospitalization History ABNORMAL LABS/ DIALYSIS 07/2015 [facility] Other eZelleronryrc general Narrative - Reported* Type Description Date [...] 06/2015 Hospitalization History ABNORMAL LABS/ DIALYSIS 07/2015 [facility] Other eZelleronxjwm general Narrative - Reported* Type Description Date [...] 06/2015 Hospitalization History ABNORMAL LABS/ DIALYSIS 07/2015 [facility] Other history general Narrative - Reported* Type [...] 06/2015 Hospitalization History ABNORMAL LABS/ DIALYSIS 07/2015 [facility] Other History of Present illness Narrative* The [...] medication regimen. He denies medication side effects. [facility] [employer] Work Phone: History of Present illness Narrative* [...] medication regimen. He denies medication side effects. [facility] [employer] DO Work Phone: History of Present illness [...] medication regimen. He denies medication side effects. [facility] Work Phone: History of Present illness Narrative* Bony Gibson DPM - 04/27/2025 10:30 AM EDT Patient: Td Giraldo : 1950 PCP: Jun Perez MD SUBJECTIVE Patient presents today with a CC of [...] Abnormal kidney function CHF (congestive heart failure) ([facility]) History of being hospitalized renal failure Hypertension ([facility]) Kidney stones Type 2 diabetes mellitus Medications: Current Outpatient Medications: ascorbic acid (Vitamin [...] and 25 mg in the evening and 25mg before bedtime., Disp: , Rfl: cholecalciferol (Vitamin [...] VASC: Palpable pedal pulses bilaterally NEURO: 5.07 [place] Temo monofilament test intact to digits and forefoot bilaterally 125Hz tuning fork diminished to 1st MPJ bilaterally ORTHO: Minimal pain on palpation to the right hallux Positive pain on palpation to toenails of the left 1,2,3,4,5 toes and right 2,3,4,5 toes ASSESSMENT 1. Diabetes mellitus due to underlying condition with diabetic polyneuropathy, unspecified whether detention insulin use ([facility]) 2. Pain due to onychomycosis of toenails of both feet PLAN Discussed proper foot care with patient today. Debride nails in length and thickness digits 1 through 9 Patient educated today on proper diabetic foot care including monitoring feet daily for any signs of infection openings in the skin or irregularities to both feet. Patient had a diabetic neurologicalexam today to both their feet and discussed proper shoe gear. Bony Gibson DPM [facility] Dis[facility] instructions Additional Instructions DISCHARGE INSTRUCTIONS FOR [...] problems. -Follow up with PCP. -Office number [phone].[facility] Work Phone: Hospital Discharge instructionsAmbulatory Orders* Referral to Orthopedic Surgery Location: None Selected [facility] Work Phone: Reason for referral (narrative)* Consultation (Routine) - Authorized Specialty Diagnoses / Procedures Referred By Contac t Referred To Contact Cardiology Diagnoses CHF (congestive heart failure), NYHA class II, acute on chronic, combined (CMS/HCC) Primary hypertension Procedures Follow Up In Cardiology Britney Yu MD [address] [place] [id number] Britney Yu MD [address] [place] [id number] Referral ID Status Reason Start Date Expiration Date V isits Requested Visits Authorized [id number] Authorized 09/28/2023 09/27/2024 1 1 [facility] Work Phone: Recpgv for referral (narrative)* Consultation (Routine) - Authorized Specialty Diagnoses / Procedures Referred By Contac t Referred To Contact Cardiology Diagnoses CHF (congestive heart failure), NYHA class II, acute on chronic, combined (CMS/HCC) Primary hypertension Nonischemic cardiomyopathy (CMS/HCC) Procedures Follow Up In Cardiology Britney Yu MD [address] [place] [address] Britney Yu MD [address] [place] [address] Referral ID Status Reason Start Date Expiration Date V isits Requested Visits Authorized [id number] Authorized 10/15/2023 10/14/2024 1 1 [facility] Work Phone: Rerglr for referral (narrative)No reason for referral information availableMer[facility] Health St[facility] Work Phone: Reason for visit Narrativenutrition referral discussionNomercy hospital south, [facility] [employer] Other Summary Purpose Family History No Family [...] Praful off ice. Previously saw provider at [facility] ortho Diagnosis 1 Recurrent pain of ri ght knee (M25.561) Referral Organization [facility] [employer] Referring Provider First Name Jun Referring Provider Last Name Chris Referring Provider Specialty [facility] Referred Organization [facility] Referred Provider Ritchie Desai Referred Address ,[place], [place],[address] Referred Provider Specialty Orthopedic S urgery Referral Priority Routine Referral Appointment Date 2022-12-16 General Notes Becca Boykin 11:40:22 AM >received today, notes locked, attachments made, referral faxed P2P Becca Boykin 12/12/2022 09:25:38 AM >faxed first attempt letter Becca Boykin 12/12/2022 01:42:44 PM >received fax back that pt is scheduled with Becca Alex 12/17/2022 08:00:55 AM >faxed first request for consult notes Becca Boykin 2022 12:58:52 PM >faxed second request for notes Becca Boykin 12/26/2022 05:01:54 PM >received notes, sent for review. Reason 12/26/22 [facility] office. pt has data on previous echos, etc Diagnosis 1 Left heart failure w ith left ejection fraction greater than 40 percent (I50.1) Referral Organization [facility] [employer] Referring Provider First Name Jun Referring Provider Last Name Chris Referring Provider Specialty [facility] Referred Organization [facility] enter Referred Provider Lashell Osborn Referred Address [address],[place], [place],[address] Referred Provider Specialty Internal Med icine Referral Priority Routine Referral Appointment Date 2022-12-26 General Notes Becca Boykin 01:12:21 PM >pt was originally referred by Edie Morse and has an appt with [facility] on 12/26/22 Becca Boykin 12/29/2022 05:08:53 PM >faxed first request for consult notes Becca Boykin 12/30/2022 01:56:43 PM >received notes, sent for review. Closing referral at this time. Reason 02/04/23 Pt has re cent labs. copies will also be scanned in Diagnosis 1 CKD (chronic kidney disease) stage 2, GFR 60-89 ml/min (N18.2) Referral Organization [facility] [employer] [facility] Referring Provider First Name Jun Referring Provider Last Name Chris Referring Provider Specialty [facility] [facility] Referred Organization [facility] Nephrology Referred Provider Tj Huber Referred Address [address] ,[place], [place],[address] Referred Provider Specialty Nephrology Referral Priority Routine Referral Appointment Date 2023-02-04 General Notes Becca Boykin 12:30:23 PM >received today, sent P2P Becca Boykin 12/05/2022 12:53:06 PM >waitng to see if can schedule since pt, said we are not in his network. TE was sent Becca Boykin 12/05/2022 01:19:03 PM >per availity website no auth is required Reason 12/11/22 [employer] office preferred - needs nail care and possible toenail removal Diagnosis 1 Diabetic peripheral neuropathy (E11.42) Referral Organization [facility] [employer] Referring Provider First Name Jun Referring Provider Last Name Chris Referring Provider Specialty [employer] Referred Organization [facility] Referred Provider BONY GIBSON Referred Address ,[place], [place],[address] Referred Provider Specialty Podiatry - S urgical Chiropody Referral Priority Routine Referral Appointment Date 2022-12-11 General Notes Becca Boykin 11:23:27 AM >received today, faxed referral Becca Boykin 12/05/2022 01:14:47 PM >patient provided appt date Becca Boykin 12/12/2022 01:27:01 PM >faxed first request for consult notes Becca Boykin 12/15/2022 12:08:55 PM >received notes and sent for review. closing referral at this time. Clinical Notes [id number] Reason 12/10/22 yearly sk in exam Diagnosis 1 Precancerous skin le edith (L98.9) Referral Organization [facility] [employer] Referring Provider First Name Jun Referring Provider Last Name Chris Referring Provider Specialty [facility] [employer] Referred Organization [facility] Referred Provider Tigre Russell Referred Address [address],[place], [place],[address] Referred Provider Specialty Dermatology Referral Priority Routine Referral Appointment Date 2022-12-10 General Notes Becca Boykin 10:49:22 AM >received today, notes locked, attachments made, referral faxed Becca Boykin 12/15/2022 11:00:10 AM >faxed first attempt letter Becca Boykin 12/15/2022 02:09:31 PM >received notes and sent for review Reason CLOSED evaluate Diagnosis 1 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) [facility] Referring Provider First Name Edie Referring Provider Last Name Lito Referring Provider Specialty Nurse Pract itioner Referred Organization [facility] Nephrology Cli osvaldo [place] Referred Provider Tj Huber Referred Address [address],[place],[address] Referred Provider Specialty Nephrology Referral Priority Routine General Notes Becca Boykin 11:14:39 AM >received today Lucretia Becca 11/20/2022 11:15:11 AM >waiting for notes to be locked, and [employer] website is currently down to complete PA. will check back Becca Boykin 11/21/2022 09:08:45 AM >[employer] website is still down. will check back [...] unspecified heart failure type (I50.9) Referral Organization [facility] Referring Provider First Name Edie Referring Provider Last Name Lito Referring Provider Specialty Nurse Pract itioner Referred Organization [facility] Referred Provider Hawa Diallo Referred Address [address] [facility] [address] ,[place], [place],[address] Referred Provider Specialty Cardiac Surg niurka Referral Priority Routine Referral Appointment Date 2022-12-26 General Notes Becca Boykin 11:08:29 AM >received today, waiting for notes to be locked, and [employer] website is down for Prior Auth. will check back Becca Boykin 11/21/2022 09:08:07 AM >[employer] website is still down at this time. Becca Boykin 11/24/2022 09:16:51 AM >availity site still down Becca Boykin 11/25/2022 08:54:58 AM >site up, and no auth is required. attachment made, referral faxed Becca Boykin 12/02/2022 09:47:35 AM >faxed first attempt letter Becca Boykin 12/03/2022 01:52:54 PM >received fax with appt date and time Reason CLOSED- changed emilia gomez providers evaluate and treat Diagnosis 1 Other chronic pain ( G89.29) Diagnosis 2 Pain in right knee ( M25.561) Referral Organization [facility] Referring Provider First Name Edie Referring Provider Last Name Brayanvincent Referring Provider Specialty Nurse Rena guerrero Referred Organization [facility] Referred Provider Tad Boucher Referred Address [address] [place],[address] Referred Provider Specialty Orthopedic S urgery Referral Priority Routine General Notes Becca Boykin 11:16:24 AM >received today, waiting for notes to be locked, and [employer] website is currently down at the moment. will folllow up Becca Boykin 11/21/2022 09:09:03 AM >[employer] website is still currently down. will check back Becca Boykin 11/24/2022 09:17:20 AM >[employer] site is still down Becca Boykin 11/25/2022 [...] dilated LVEF 31%. * I reviewed prior [facility] note dated August 25, 2022. * [...] Patient is no longer receiving care from [facility]: Transferred care to [facility] with new patient assessment by Dr. Osborn [...] reports that usually calibrated yearly by the [facility],will no longer be seen in the [...] dilated LVEF 31%. * I reviewed prior [facility] note dated August 25, 2022. * [...] Patient is no longer receiving care from [facility]: Transferred care to [facility] with new patient assessment by Dr. Osborn [...] reports that usually calibrated yearly by the [facility],will no longer be seen in the [facility] and referred to the sleep clinic [...] months Reason for Visit Rhinitis, allergic Tim kamara kid I-IV Chronic kidney disease, stage III [...] meter Reason for Visit Rhinitis, allergic Tim kamara kid I-IV Chronic kidney disease, stage III [...] Discuss R Knee Reason for Visit Tim kamara kid I-IV Chronic kidney disease, stage III (moderate) Complex renal cyst Nephrolithiasis Proteinuria Secondary hyperparathyroidism Thrombocytopenia Type 2 diabetes mellitus with diabetic chronic kidney disease Chief Complaint Admit Date RENAL 6 MONTH F/U July 04, 2024 10 :50am Discuss R Knee August 08, 2024 2:09pm METER September 29, 2024 9:19am Reason for Visit Admit Date Tim kamara kid I-IV July 04 10:50am Chronic kidney [...] chronic kidney disease September 29, 2024 9:19am Chief Complaint Admit Date METER September 29, 2024 9:19am Vertigo October 18, 2024 1 :01pm 6 Months October 19, 2024 9 :55am Vertigo November 29, 2024 1 :00pm RENAL 6 MONTH F/U December 27, 2024 11:37am Reason for Visit Admit Date BMI 35.0-35.9,adult September 29, 2024 9:19am Dietary counseling and surveillance Jose forrester 2023 9:19am HTN (hypertension) September 29, 2024 9:19am Hyperlipidemia September 29, 2024 9:19am Type 2 diabetes mellitus wit h diabetic chronic kidney disease September 29, 2024 9:19am BPV (benign positional vertigo) October 18, 2024 1:01pm Chronic HFrEF (heart failure with reduced ejection fraction) October 19, 2024 9:55am Chronic kidney disease, stage III (moder ate) October 19, 2024 9:55am HTN (hypertension) October 19, 2024 9 :55am Non-ischemic cardiomyopathy October 9:55am Type 2 diabetes mellitus wit h diabetic chronic kidney disease October 19, 2024 9:55am Tim hy kid w cr kid I-IV December 27, 2024 11:37am Chronic kidney disease, stage III (moder ate) December 27, 2024 11:37am Complex renal cyst December 27, 2024 11:37am Nephrolithiasis December 27, 2024 11:37am Proteinuria December 27, 2024 11:37am Secondary hyperparathyroidism December 172024 11:37am Type 2 diabetes mellitus wit h diabetic chronic kidney disease December 27, 2024 11:37am Chief Complaint Admit Date Vertigo November 29, 2024 1 :00pm RENAL 6 MONTH F/U December 27, 2024 11:37am Reason for Visit Admit Date Tim hy kid w cr kid I-IV December 27, 2024 11:37am Chronic kidney disease, stage III (moder ate) December 27, 2024 11:37am Complex renal cyst December 27, 2024 11:37am Nephrolithiasis December 27, 2024 11:37am Proteinuria December 27, 2024 11:37am Secondary hyperparathyroidism December 172024 11:37am Type 2 diabetes mellitus wit h diabetic chronic kidney disease December 27, 2024 11:37am Chief Complaint Admit Date Vertigo November 29, 2024 1 :00pm RENAL 6 MONTH F/U December 27, 2024 11:37am Nausea February 14, 2025 9:25 am Reason for Visit Admit Date Tim hy kid w cr kid I-IV December 27, 2024 11:37am Chronic kidney disease, stage III (moder ate) December 27, 2024 11:37am Complex renal cyst December 27, 2024 11:37am Nephrolithiasis December 27, 2024 11:37am Proteinuria December 27, 2024 11:37am Secondary hyperparathyroidism December 172024 11:37am Type 2 diabetes mellitus wit h diabetic chronic kidney disease December 27, 2024 11:37am Chronic left hip pain February 14, 2025 9: 25am Fatigue February 14, 2025 9:25 am HTN (hypertension) February 14, 2025 9:25 am Type 2 diabetes mellitus wit h diabetic chronic kidney disease February 14, 2025 9:25am Chief Complaint Admit Date Nausea February 14, 2025 9:25 am 6 month-no meter March 30, 2025 9:20a m Reason for Visit Admit Date Chronic left hip pain February 14, 2025 9: 25am Fatigue February 14, 2025 9:25 am HTN (hypertension) February 14, 2025 9:25 am Type 2 diabetes mellitus with diabetic c hronic kidney disease February 14, 2025 9:25am BMI 35.0-35.9,adult March 30, 2025 9:20a m Dietary counseling and surveillance March 30, 2025 9:20am HTN (hypertension) March 30, 2025 9:20a m Hyperlipidemia March 30, 2025 9:20a m Type 2 diabetes mellitus with diabetic c hronic kidney disease March 30, 2025 9:20am Chief Complaint Admit Date 6 month-no meter March 30, 2025 9:20a m Vertigo April 06, 2025 4:00p m talk about b12/fatigue, Cortisone shot i n knee May 31, 2025 1:17pm Reason for Visit Admit Date BMI 35.0-35.9,adult March 30, 2025 9:20a m Dietary counseling and surveillance March 30, 2025 9:20am HTN (hypertension) March 30, 2025 9:20a m Hyperlipidemia March 30, 2025 9:20a m Type 2 diabetes mellitus with diabetic c hronic kidney disease March 30, 2025 9:20am CHF (congestive heart failure) May 1:17pm Chronic left hip pain May 31, 2025 1: 17pm Chronic pain of right knee May 31 1:17pm Pernicious anemia May 31, 2025 1:17 pm Chief Complaint Admit Date 6 month-no meter March 30, 2025 9:20a m Vertigo April 06, 2025 4:00p m talk about b12/fatigue, Cortisone shot i n knee May 31, 2025 1:17pm B12 shot June 07, 2025 1:56 pm Reason for Visit Admit Date BMI 35.0-35.9,adult March 30, 2025 9:20a m Dietary counseling and surveillance March 30, 2025 9:20am HTN (hypertension) March 30, 2025 9:20a m Hyperlipidemia March 30, 2025 9:20a m Type 2 diabetes mellitus with diabetic c hronic kidney disease March 30, 2025 9:20am CHF (congestive heart failure) May 1:17pm Chronic left hip pain May 31, 2025 1: 17pm Chronic pain of right knee May 31 1:17pm 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 May 31, 2025 1:17pm Morbid (severe) obesity due to excess ca lories May 31, 2025 1:17pm Pernicious anemia May 31, 2025 1:17 pm Stage 3b chronic kidney disease May 1:17pm Chief Complaint Admit Date 6 month-no meter March 30, 2025 9:20a m Vertigo April 06, 2025 4:00p m talk about b12/fatigue, Cortisone shot i n knee May 31, 2025 1:17pm B12 shot June 07, 2025 1:[address] PEREZ LT HIP PAIN WX THB FROM FebruaryJune 12, 2025 10:01am Reason for Visit Admit Date BMI 35.0-35.9,adult March 30, 2025 9:20a m Dietary counseling and surveillance March 30, 2025 9:20am HTN (hypertension) March 30, 2025 9:20a m Hyperlipidemia March 30, 2025 9:20a m Type 2 diabetes mellitus with diabetic c hronic kidney disease March 30, 2025 9:20am CHF (congestive heart failure) May 1:17pm Chronic left hip pain May 31, 2025 1: 17pm Chronic pain of right knee May 31 1:17pm 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 May 31, 2025 1:17pm Morbid (severe) obesity due to excess ca lories May 31, 2025 1:17pm Pernicious anemia May 31, 2025 1:17 pm Stage 3b chronic kidney disease May 1:17pm Degenerative joint disease of left hip J larry 2024 10:01am Low back pain June 12, 2025 10:0 1am Chief Complaint Admit Date 6 month-no meter March 30, 2025 9:20a m Vertigo April 06, 2025 4:00p m talk about b12/fatigue, Cortisone shot i n knee May 31, 2025 1:17pm B12 shot June 07, 2025 1:[address] CHRIS VALDEZ HIP PAIN WX THB FROM FebruaryJune 12, 2025 10:01am B12 Shot June 14, 2025 4:02 pm Chief Complaint Admit Date 6 month-no meter March 30, 2025 9:20a m Vertigo April 06, 2025 4:00p m talk about b12/fatigue, Cortisone shot i n knee May 31, 2025 1:17pm B12 shot June 07, 2025 1:[address] PEREZ LT HIP PAIN WX THB FROM FebruaryJune 12, 2025 10:01am B12 Shot June 14, 2025 4:02 pm B12 Shot June 22, 2025 9:0 8am Chief Complaint Admit Date talk about b12/fatigue, Cortisone shot i n knee May 31, 2025 1:17pm B12 shot June 07, 2025 1:[address] CHRIS VALDEZ HIP PAIN WX THB FROM FebruaryJune 12, 2025 10:01am B12 Shot June 14, 2025 4:02 pm B12 Shot June 22, 2025 9:0 8am Reason for Visit Admit Date CHF (congestive heart failure) May 1:17pm Chronic left hip pain May 31, 2025 1: 17pm Chronic pain of right knee May 31 1:17pm 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 May 31, 2025 1:17pm Morbid (severe) obesity due to excess ca lories May 31, 2025 1:17pm Pernicious anemia May 31, 2025 1:17 pm Stage 3b chronic kidney disease May 1:17pm Degenerative joint disease of left hip J larry 2024 10:01am Low back pain June 12, 2025 10:0 1am Chief Complaint Admit Date talk about b12/fatigue, Cortisone shot i n knee May 31, 2025 1:17pm B12 shot June 07, 2025 1:[address] CHRIS VALDEZ HIP PAIN WX THB FROM FebruaryJune 12, 2025 10:01am B12 Shot June 14, 2025 4:02 pm B12 Shot June 22, 2025 9:0 8am B12 shot July 07, 2025 10 :21am Additional Source Comments INFORMATION SOURCE (unrecogn ized section and content) DATE CREATED AUTHOR 05/12/2018 [facility] Room 77 System DATE CREATED AUTHOR AUTHOR'S ORGANIZ ATION 11/16/2020 [facility] DATE CREATED AUTHOR AUTHOR'S ORGANIZ ATION 01/08/2023 [facility] dical Specialist DATE CREATED AUTHOR AUTHOR'S ORGANIZ ATION 04/26/2023 [facility] DATE CREATED AUTHOR AUTHOR'S ORGANIZ ATION 05/15/2023 [facility] DATE CREATED AUTHOR AUTHOR'S ORGANIZ ATION 05/15/2023 [facility] DATE CREATED AUTHOR AUTHOR'S ORGANIZ ATION 05/23/2023 [facility] DATE CREATED AUTHOR AUTHOR'S ORGANIZ ATION 08/21/2023 [facility] DATE CREATED AUTHOR AUTHOR'S ORGANIZ ATION 08/19/2024 [facility] DATE CREATED AUTHOR AUTHOR'S ORGANIZ ATION 04/29/2025 [facility] dical Specialists EPIC DATE CREATED AUTHOR AUTHOR'S ORGANIZ ATION 07/07/2025 [facility] (unrecognized sect ion and [...] Follow Up In Cardiology Britney Yu MD [address] [place] [id number] Britney Yu MD [address] [place] [address] [address] [place] [address] Referral ID Status Reason Start Date Expiration Date V isits Requested Visits Authorized [id number] Authorized 09/28/2023 09/27/2024 1 1 Reason Comments Sleep Apnea Reason Comments Toenail Problem Rt gt nail issue Reason Comments Follow-up 14d s/p rt avulsion Reason Comments DM Foot Care Dm nail care Reason Comments Toenail Care Non dm nail care Care Teams (unrecognized sec tion and content) [...] Perez MD Primary Care Provider Active Tj Huber MD Attending Provider Active Special Programs Director Relationship Specialty Start Date End Date Jun Perez MD [address] [place] [address] PCP - General 12/26/22 Special Programs Director Relationship Specialty Start Date End Date Jun [...] 05, 2024 End: January 05, 2024 Tj Huber MD Attending Provider Active Start : January [...] 2024 Team Status: Inactive Member Role Status Tomsaa Perez MD Primary Care Provider Active Start: March 24, 2024 End: March 24, 2024 Duncan Parham APRN Attending Provider Active Start: March 24, 2024 End: March 24, 2024 Team Status: Active Member Role Status Dates Jose Yu MD Field Operations Farm Manager Active Jun Perez MD Primary Care Provider [...] Provider Active Start: June 29, 2024 Tj Huber MD Attending Provider Active Start : June 29, 2024 Team Status: Inactive Member Role Status Dates Jun Perez MD Primary Care Provider Active Start: July 04, 2024 End: July 04, 2024 Tj Huber MD Attending Provider Active Start : July 04, 2024 End: July 04, 2024 Team Status: Inactive Member Role Status Dates Jun Perez MD Primary Care Provide r, Attending Provider Active Start: August 08, 2024 End: August 08, 2024 Special Programs Director Relationship Specialty Start Date End Date Jun Perez MD [address] [place] [address] PCP - General Family Medicine 04/29/23 Special Programs Director Relationship Specialty Start Date End Date Jun Perez MD [address] [place] [address] PCP - General Family Medicine 04/29/23 Team Status: Active Member Role Status Dates Jun Perez MD Primary Care Provide r, Attending Provider Active Start: September 28, 2024 Team Status: Inactive Member Role Status Dates Jun Perez MD Primary Care Provider Active Start: September 29, 2024 End: September 29, 2024 Duncan Parham APRN Attending Provider Active Start: September 29, 2024 End: September 29, 2024 Special Programs Director Relationship Specialty Start Date End Date Jun Perez MD [address] [facility] [place] [address] PCP - General Family Medicine 04/29/23 Special Programs Director Relationship Specialty Start Date End Date Jun Perez MD [address] [facility] [place] [id number] PCP - General Family Medicine 04/29/23 Special Programs Director Relationship Specialty Start Date End Date Jun Perez MD [address] [facility] [place] [address] PCP - General Family Medicine 04/29/23 Team Status: Inactive Member Role Status Dates Jun Perez MD Primary Care Provide r, Attending Provider Active Start: October 18, 2024 End: October 18, 2024 Team Status: Inactive Member Role Status Dates Jun Perez MD Primary Care Provider Active Start: October 19, 2024 End: October 19, 2024 Jose Yu MD Attending Provider Activ e Start: October 19, 2024 End: October 19, 2024 Team Status: Active Member Role Status Dates Jun Perez MD Primary Care Provide r, Attending Provider Active Start: November 29, 2024 Team Status: Active Member Role Status Dates Jun Perez MD Primary Care Provider Active Start: December 26, 2024 Tj Huber MD Attending Provider Active Start : December 26, 2024 Team Status: Inactive Member Role Status Dates Jun Perez MD Primary Care Provider Active Start: December 27, 2024 End: December 27, 2024 Tj Huber MD Attending Provider Active Start : December 27, 2024 End: December 27, 2024 Team Status: Inactive Member Role Status Dates Jun Perez MD Primary Care Provide r, Attending Provider Active Start: November 29, 2024 End: November 29, 2024 Team Status: Inactive Member Role Status Dates Jun Perez MD Primary Care Provide r, Attending Provider Active Start: February 14, 2025 End: February 14, 2025 Special Programs Director Relationship Specialty Start Date End Date Jun Perez MD [address] [place] [id number] PCP - General Family Medicine 04/29/23 Special Programs Director Relationship Specialty Start Date End Date Jun Perez MD [address] [place] [phone] PCP - General Family Medicine 04/29/23 Team Status: Active Member Role Status Dates Jun Perez MD Primary Care Provider Active Start: March 27, 2025 Kusum Dailey MD Attending Provider Active St art: March 27, 2025 Team Status: Active Member Role Status Dates Jun Perez MD Primary Care Provider Active Start: March 28, 2025 Kusum Dailey MD Attending Provider Active St art: March 28, 2025 Team Status: Inactive Member Role Status Dates Jun Perez MD Primary Care Provider Active Start: March 30, 2025 End: March 30, 2025 Duncan Parham APRN Attending Provider Active Start: March 30, 2025 End: March 30, 2025 Special Programs Director Relationship Specialty Start Date End Date Jun Perez MD PCP - General Family Medicine 04/29/23 Special Programs Director Relationship Specialty Start Date End Date Jun Perez MD PCP - General Family Medicine 04/29/23 Team Status: Active Member Role Status Dates Jun Perez MD Primary Care Provider Active Start: April 06, 2025 Ashkan Perez MD Attending Provider Active Star t: April 06, 2025 Team Status: Inactive Member Role Status Dates Jun Perez MD Primary Care Provider Active Start: May 31, 2025 End: May 31, 2025 Jun Perez MD Attending Provider Active St art: May 31, 2025 End: May 31, 2025 Team Status: Inactive Member Role Status Dates Jun Perez MD Primary Care Provider Active Start: June 07, 2025 End: June 07, 2025 Mich Childs DO Attending Provider Active Sta rt: June 07, 2025 End: June 07, 2025 Team Status: Inactive Member Role Status Dates Jun Perez MD Primary Care Provider Active Start: June 12, 2025 End: June 12, 2025 Humberto Valerio DO Attending Provider Active S tart: June 12, 2025 End: June 12, 2025 Team Status: Inactive Member Role Status Dates Jun Perez MD Primary Care Provider Active Start: June 14, 2025 End: June 14, 2025 Mich Childs DO Attending Provider Active Sta rt: June 14, 2025 End: June 14, 2025 Team Status: Inactive Member Role Status Dates Jun Perez MD Primary Care Provider Active Start: June 22, 2025 End: June 22, 2025 Mich Childs DO Attending Provider Active Sta rt: June 22, 2025 End: June 22, 2025 Team Status: Inactive Member Role Status Dates Jun Perez MD Primary Care Provider Active Start: July 07, 2025 End: July 07, 2025 Jun Perez MD Attending Provider Active St art: July 07, 2025 End: July 07, 2025 Goals (unrecognized section and content) Goals may [...] BE BASED ON THE PRIMARY CLINICAL RECORDS. [facility]. provides no warranty or guarantee of the accuracy or completeness of information in this document.
[2025-08-09 08:39] LABS: Protein Creatinine Ratio Urine 0.48; Total Protein Urine Random 42.2 mg/dL (<=11.9)
[2025-08-09 08:43] LABS: Albumin Level 3.5 g/dL (3.4-5.0); Anion Gap 14.4; Blood Urea Nitrogen 26.0 mg/dL (7.0-18.0); Calcium 8.7 mg/dL (8.5-10.1); Carbon Dioxide 25.7 mmol/L (21.0-32.0); Chloride 107 mmol/L (98-107); Estimated GFR (African America >60 (>=60 mL/min/1.73m^2); Estimated GFR (Non-African Ame 53 (>=60 mL/min/1.73m^2); Glucose 131 mg/dL (74-106); Magnesium 2.1 mg/dL (1.8-2.4); Potassium 4.1 mmol/L (3.5-5.1); Sodium 143 mmol/L (136-145); Uric Acid 5.6 mg/dL (3.5-7.2)
[2025-08-09 08:55] LABS: Glucose Urine UA >=1000 mg/dL (NEGATIVE)
[2025-08-09 09:00] LABS: Hematocrit 45.7 % (42.0-54.0); Hemoglobin 14.8 g/dL (14.0-18.0); Mean Corpuscular HGB Conc 32.4 g/dL (29.9-35.2); Mean Corpuscular Hemoglobin 28.0 pg (25.9-34.0); Mean Corpuscular Volume 86.6 fL (80.0-94.0); Platelet Count 130 10^3/uL (150-450); Red Blood Count 5.28 10^6/uL (4.70-6.10); White Blood Count 4.8 10^3/uL (4.0-11.0)
[2025-08-09 09:19] LABS: Cast Seen? NONE SEEN #/LPF (NONE SEEN); Crystals Seen? None Seen #/HPF (None Seen)
== END 2025-08-09 07:40 | disposition home or self-care (01) ==
LOC: LAB 07:45
PROVIDERS: PCP Family Medicine; Visit Provider Internal Medicine
DX: N25.81 Secondary hyperparathyroidism of renal origin (principal); N18.32 Chronic kidney disease, stage 3b; I12.9 Hypertensive chronic kidney disease with stage 1 through stage 4 chronic kidney disease, or unspecified chronic kidney disease
CPT/HCPCS: 36415; 80069; 81001; 82306; 82570; 83735; 83970; 84156; 84550; 85027